=== PATIENT | male | born 1965 | race Caucasian/White ===

== ENCOUNTER → 2019-12-28 | Outpatient (CLI) | payer BC ==
--- NOTE | 2019-12-28 09:51 | US ---
EXAMINATION TYPE: US renal artery duplex complet DATE OF EXAM: 12/28/2019 COMPARISON: NONE CLINICAL HISTORY: N18.9 Chronic kidney disease. HTN controlled on meds MEASUREMENTS: RENAL SIZE: Rt Kidney: 12.1 x 5.7 x 5.6 cm Lt Kidney: 11.6 x 6.4 x 6.5 cm RESISTANCE INDEX Right: 0.58 Left: 0.59 RA/AO RATIO (< 3.5 ) Right: 1.6 Left: 1.2 RA VELOCITY ( < 180 cm/s) Right: 134 Left: 103 Proximal aorta obscured by bowel gas, otherwise is unremarkable. Two cysts right renal, largest measu re 2.2 x 2.3 x 2.1 cm. No ultrasound evidence for renal artery stenosis. Good upstroke on segmentals at renal hilum. Low resistive waveforms noted throughout. IMPRESSION: No sonographic evidence of renal arterial stenosis. 2 right renal cyst incidentally noted measuring up to 2.3 cm.
[2019-12-28 09:53] LABS: Appearance,Urine Clear (Clear); Bacteria,Urine Rare /hpf; Bilirubin,Urine Negative (Negative); Blood,Urine Small (Negative); Color,Urine Yellow; Glucose,Urine (UA) 4+ (Negative); Hyaline Casts,Urine 23 /lpf (0-2); Ketones,Urine Negative (Negative); Leukocyte Esterase,Urine Negative (Negative); Mucus,Urine Rare /hpf; Nitrite,Urine Negative (Negative); Protein,Urine 2+ (Negative); RBC,Urine 1 /hpf (0-5); Specific Gravity,Urine 1.017 (1.001-1.035); Squamous Epithelial Cell,Urine <1 /hpf (0-4); Urobilinogen,Urine <2.0 mg/dL (<2.0); WBC,Urine <1 /hpf (0-5)
[2019-12-28 09:55] LABS: Albumin 3.4 g/dL (3.5-5.0); Magnesium 2.3 mg/dL (1.6-2.3); Potassium 4.2 mmol/L (3.5-5.1); Total Bilirubin 0.4 mg/dL (0.2-1.3); Total Protein 6.2 g/dL (6.3-8.2); Uric Acid 7.3 mg/dL (3.5-8.5)
[2019-12-28 09:56] LABS: Basophils # (A) 0.1 k/uL (0-0.2); Basophils % (A) 1 %; Eosinophils # (A) 0.9 k/uL (0-0.7); Eosinophils % (A) 14 %; HGB 14.1 gm/dL (13.0-17.5); Lymphocytes % (A) 31 %; MCH 31.8 pg (25.0-35.0); MCHC 32.7 g/dL (31.0-37.0); MCV 97.2 fL (80.0-100.0); Mean Platelet Volume 7.5; Monocytes # (A) 0.3 k/uL (0-1.0); Monocytes % (A) 4 %; Neutrophils # (A) 3.2 k/uL (1.3-7.7); Neutrophils % (A) 49 %; Platelet Count 233 k/uL (150-450); RBC 4.43 m/uL (4.30-5.90); RDW 12.9 % (11.5-15.5); WBC 6.6 k/uL (3.8-10.6)
[2019-12-28 10:11] LABS: T4, Free (Free Thyroxine) 1.17 ng/dL (0.78-2.19)
== END | disposition home or self-care (01) ==
LOC: RADUSWWP 08:26
PROVIDERS: ATTEND Family Medicine
DX: N28.1 Cyst of kidney, acquired (principal); E55.9 Vitamin D deficiency, unspecified; I12.0 Hypertensive chronic kidney disease with stage 5 chronic kidney disease or end stage renal disease; N18.9 Chronic kidney disease, unspecified
CPT/HCPCS: 36415; 80053; 81001; 82306; 83735; 83970; 84100; 84439; 84443; 84550; 85025; 93975

== ENCOUNTER 2020-11-02 18:38 | Inpatient (IN) | payer BC ==
[2020-11-02 18:47] LABS: Glucose,Whole Blood 530 mg/dL (75-99)
[2020-11-02] MEDS ORDERED: SODIUM CHLORIDE 0.9% 2,000 ML IV STA (19:12)
--- NOTE | 2020-11-02 19:22 | ED ---
General Adult HPI - General Chief complaint: Recheck/Abnormal Lab/Rx Stated complaint: Hyperglycemia Time Seen by Provider: 11/02/20 18:52 Source: EMS Mode of arrival: EMS Limitations: no limitations - History of Present Illness Initial comments: Dictation was produced using [employer] dictation software. please excuse any grammatical, word or spelling errors. This patient was cared for during a federal and state declared state of emergency secondary to Covid 19 Chief Complaint: 54-year-old male presents emergency department for hyperg lycemia concerns of DKA History of Present Illness: 54-year-old male he is insulin-dependent diabetic. Patient states he has history of DKA in the past. Patient states he's been feeling nauseated and has not been taking his medications like he is supposed to. When checking his sugars have found to be significantly elevated. EMS was called and they initially did a blood glucose is found to be over 600. Patient denies abdominal pain. No dysuria. No cough shortness of breath. The ROS documented in this emergency department record has been reviewed and confirmed by me. Those systems with pertinent positive or negative responses have been documented in the HPI. All other systems are other negative and/or noncontributory. PHYSICAL EXAM: General Impression: Alert and oriented x3, not in acute distress, smells of acetone HEENT: Normocephalic atraumatic, extra-ocular movements intact, pupils equal and reactive to light bilaterally, dry mucous membranes Cardiovascular: Heart regular rate and rhythm Chest: Able to complete full sentences, no retractions, no tachypnea Abdomen: abdomen soft, non-tender, non-distended, no organomegaly Musculoskeletal: Pulses present and equal in all extremities, no peripheral edema Motor: no focal deficits noted Neurological: CN II-XII grossly intact, no focal motor or sensory deficits noted Skin: Intact with no visualized rashes Psych: Normal affect and mood ED course: 54 y Old male presents with hyperglycemia. Clinical presentation concerning for diabetic ketoacidosis. Vital signs upon arrival are within acceptable limits. Patient smells of acetone. Laboratory evaluation obtained. Leukocytosis 15.2 likely secondary to stress. Venous blood gas shows pH of 7.26 with a pCO2 of 26 and a bicarb of 12. Metabolic panel shows bicarb of 8. Elevated renal markers with a creatinine of 2.97 BUN 55. Glucose 585. Lactic acidosis 2.5. Patient started on insulin drip protocol. Case discussed Dr. Argueta who is taking calls for Dr. Aguilar. Case is also discussed with panel laminator Dr. almaguer who is agreeable for ICU admission. EKG interpretation: Ventricular rate 87, normal sinus rhythm,. Interval 150, QRS 100, QTC 529. No FL prolongation, QT is prolonged, no ST or T-wave changes noted. - Related Data Home Medications Medication Instructions Recorded Confirmed Amlodipine/Valsartan/Hcthiazid 1 tab PO DAILY 11/02/20 11/02/20 [Amlodipine/Valsartan/Hcthiazid 10-320-25 MG] Atorvastatin Calcium [Lipitor] 10 mg PO DAILY 11/02/20 11/02/20 Insulin Aspart (For Pump) [NovoLOG 0.01 unit SQ-PUMP CONTINUOUS MDD 11/02/20 11/02/20 (For Pump)] 100 UNITS Varenicline [Chantix Continuing 1 mg PO BID 11/02/20 11/02/20 Pack] tadalafiL [Tadalafil] 20 mg PO DAILY PRN 11/02/20 11/02/20 Allergies Allergy/AdvReac Type Severity Reaction Status Date / Time No Known Allergies Allergy Verified 11/02/20 19:46 Review of Systems ROS Statement: Those systems with pertinent positive or pertinent negative responses have been documented in the HPI. ROS Other: All systems not noted in ROS Statement are negative. Past Medical History Past Medical History: Diabetes Mellitus, Hypertension History of Any Multi-Drug Resistant Organisms: None Reported Past Surgical History: No Surgical Hx Reported Past Psychological History: No Psychological Hx Reported Smoking Status: Former smoker Past Alcohol Use History: Occasional Past Drug Use History: Marijuana General Exam Limitations: no limitations Course Vital Signs 11/02/20 18:40 Temperature 97.5 F L Pulse Rate 89 Respiratory 18 Rate Blood Pressure 181/75 O2 Sat by Pulse 100 Oximetry Medical Decision Making - Lab Data Result diagrams: 11/02/20 19:36 11/02/20 19:36 Lab Results 11/02/20 11/02/20 11/02/20 Range/Units 18:45 19:36 19:36 WBC 15.2 H (3.8-10.6) k/uL RBC 4.00 L (4.30-5.90) m/uL Hgb 12.7 L (13.0-17.5) gm/dL Hct 40.5 (39.0-53.0) % MCV 101.1 H (80.0-100.0) fL MCH 31.8 (25.0-35.0) pg MCHC 31.5 (31.0-37.0) g/dL RDW 14.1 (11.5-15.5) % Plt Count 295 (150-450) k/uL MPV 7.6 Neutrophils % 93 % Lymphocytes % 4 % Monocytes % 2 % Eosinophils % 0 % Basophils % 0 % Neutrophils # 14.2 H (1.3-7.7) k/uL Lymphocytes # 0.6 L (1.0-4.8) k/uL Monocytes # 0.3 (0-1.0) k/uL Eosinophils # 0.0 (0-0.7) k/uL Basophils # 0.0 (0-0.2) k/uL Macrocytosis Slight VBG pH (7.31-7.41) VBG pCO2 (37-51) mmHg VBG HCO3 (24-28) mmol/L Sodium 133 L (137-145) mmol/L Potassium 4.3 (3.5-5.1) mmol/L Chloride 92 L (98-107) mmol/L Carbon Dioxide 8 L* (22-30) mmol/L Anion Gap 33 mmol/L BUN 55 H (9-20) mg/dL Creatinine 2.97 H (0.66-1.25) mg/dL Est GFR (CKD-EPI)AfAm 27 (>60 ml/min/1.73 sqM) Est GFR (CKD-EPI)NonAf 23 (>60 ml/min/1.73 sqM) Glucose 585 H* (74-99) mg/dL POC Glucose (mg/dL) 530 H (75-99) mg/dL POC Glu [employer]otechn[employer] Laboratory Technician ID David Olivier Lactic Ac Sepsis Rflx Plasma Lactic Acid Howard (0.7-2.0) mmol/L Calcium 8.9 (8.4-10.2) mg/dL Magnesium 2.3 (1.6-2.3) mg/dL Total Bilirubin 0.4 (0.2-1.3) mg/dL AST 29 (17-59) U/L ALT 26 (4-49) U/L Alkaline Phosphatase 145 H (38-126) U/L Total Protein 5.7 L (6.3-8.2) g/dL Albumin 3.3 L (3.5-5.0) g/dL Lipase 62 (23-300) U/L 11/02/20 11/02/20 11/02/20 Range/Units 19:36 19:36 20:25 WBC (3.8-10.6) k/uL RBC (4.30-5.90) m/uL Hgb (13.0-17.5) gm/dL Hct (39.0-53.0) % MCV (80.0-100.0) fL MCH (25.0-35.0) pg MCHC (31.0-37.0) g/dL RDW (11.5-15.5) % Plt Count (150-450) k/uL MPV Neutrophils % % Lymphocytes % % Monocytes % % Eosinophils % % Basophils % % Neutrophils # (1.3-7.7) k/uL Lymphocytes # (1.0-4.8) k/uL Monocytes # (0-1.0) k/uL Eosinophils # (0-0.7) k/uL Basophils # (0-0.2) k/uL Macrocytosis VBG pH 7.26 L (7.31-7.41) VBG pCO2 26 L (37-51) mmHg VBG HCO3 12 L (24-28) mmol/L Sodium (137-145) mmol/L Potassium (3.5-5.1) mmol/L Chloride (98-107) mmol/L Carbon Dioxide (22-30) mmol/L Anion Gap mmol/L BUN (9-20) mg/dL Creatinine (0.66-1.25) mg/dL Est GFR (CKD-EPI)AfAm (>60 ml/min/1.73 sqM) Est GFR (CKD-EPI)NonAf (>60 ml/min/1.73 sqM) Glucose (74-99) mg/dL POC Glucose (mg/dL) (75-99) mg/dL POC Glu Geotechnical Laboratory Technician ID Lactic Ac Sepsis Rflx Y Plasma Lactic Acid Howard 2.5 H* (0.7-2.0) mmol/L Calcium (8.4-10.2) mg/dL Magnesium (1.6-2.3) mg/dL Total Bilirubin (0.2-1.3) mg/dL AST (17-59) U/L ALT (4-49) U/L Alkaline Phosphatase (38-126) U/L Total Protein (6.3-8.2) g/dL Albumin (3.5-5.0) g/dL Lipase (23-300) U/L Critical Care Time Critical Care Time: Yes Total Critical Care Time: 33 Disposition Clinical Impression: DKA (diabetic ketoacidoses) Disposition: ADMITTED IP TO THIS [facility] Condition: Critical Referrals: Codey Mishra MD [Primary Care Provider] - 1-2 days Decision Time: 22:38
[2020-11-02 19:46] LABS: Basophils % (A) 0 %; Eosinophils % (A) 0 %; HCT 40.5 % (39.0-53.0); HGB 12.7 gm/dL (13.0-17.5); Lymphocytes # (A) 0.6 k/uL (1.0-4.8); Lymphocytes % (A) 4 %; MCH 31.8 pg (25.0-35.0); MCHC 31.5 g/dL (31.0-37.0); MCV 101.1 fL (80.0-100.0); Macrocytosis Slight; Mean Platelet Volume 7.6; Monocytes # (A) 0.3 k/uL (0-1.0); Monocytes % (A) 2 %; Neutrophils # (A) 14.2 k/uL (1.3-7.7); Neutrophils % (A) 93 %; Platelet Count 295 k/uL (150-450); RDW 14.1 % (11.5-15.5); WBC 15.2 k/uL (3.8-10.6)
[2020-11-02 19:47] LABS: VBG PH 7.26 (7.31-7.41)
[2020-11-02 19:56] LABS: Albumin 3.3 g/dL (3.5-5.0); Calcium 8.9 mg/dL (8.4-10.2); Magnesium 2.3 mg/dL (1.6-2.3); Potassium 4.3 mmol/L (3.5-5.1); Total Bilirubin 0.4 mg/dL (0.2-1.3); Total Protein 5.7 g/dL (6.3-8.2)
[2020-11-02] MEDS ORDERED: ONDANSETRON 4 MG/2 ML VIAL IVP STA (22:01)
[2020-11-02] MEDS ORDERED: INSULIN REGULAR BOLUS (FROM DRIP BAG) IV ONE (22:30)
[2020-11-02] MEDS ORDERED: Magnesium Replacement Protocol 1 EACH MISC MISCELLANE PRN (22:30)
[2020-11-02] MEDS ORDERED: Potassium Replacement Protocol 1 EACH MISC MISCELLANE PRN (22:30)
[2020-11-02] MEDS ORDERED: NALOXONE 0.4 MG/ML 1 ML VIAL IV PRN (22:35)
[2020-11-02] MEDS ORDERED: ACETAMINOPHEN TAB 325 MG TAB PO PRN (22:35)
[2020-11-02] MEDS: SODIUM CHLORIDE 0.9% 1,000 ML IV SCH (22:47)
[2020-11-02] MEDS: INSULIN REGULAR 100 UNIT in SODIUM CHLORIDE 0.9% 100 ML IV SCH (22:47)
[2020-11-02 22:55] LABS: Glucose,Whole Blood 541 mg/dL (75-99)
[2020-11-02 22:58] LABS: Appearance,Urine Clear (Clear); Bilirubin,Urine Negative (Negative); Blood,Urine Trace (Negative); Color,Urine Light Yellow; Glucose,Urine (UA) 4+ (Negative); Hyaline Casts,Urine 7 /lpf (0-2); Leukocyte Esterase,Urine Negative (Negative); Mucus,Urine Rare /hpf; Nitrite,Urine Negative (Negative); PH, Urine 5.5 (5.0-8.0); Protein,Urine 2+ (Negative); RBC,Urine <1 /hpf (0-5); Specific Gravity,Urine 1.015 (1.001-1.035); Squamous Epithelial Cell,Urine 1 /hpf (0-4); Urobilinogen,Urine <2.0 mg/dL (<2.0); WBC,Urine 1 /hpf (0-5)
[2020-11-02 23:18] LABS: Ketones,Urine 3+ (Negative)
[2020-11-03 00:03] LABS: Glucose,Whole Blood 504 mg/dL (75-99)
[2020-11-03] MEDS: ONDANSETRON 4 MG/2 ML VIAL IVP PRN ×2 (00:38→03:14)
[2020-11-03 00:55] LABS: Phosphorus 8.6 mg/dL (2.5-4.5); Potassium 3.5 mmol/L (3.5-5.1)
[2020-11-03 01:13] LABS: Glucose,Whole Blood 445 mg/dL (75-99)
[2020-11-03 02:06] LABS: Glucose,Whole Blood 408 mg/dL (75-99)
[2020-11-03] MEDS ORDERED: ENALAPRILAT 1.25 MG/ML 1 ML VIAL IVP STA ×2 (02:34→03:43)
[2020-11-03 03:03] LABS: Glucose,Whole Blood 357 mg/dL (75-99)
[2020-11-03] MEDS: SODIUM CHLORIDE 0.9% 1,000 ML IV SCH ×2 (03:47→16:17)
[2020-11-03 04:08] LABS: Glucose,Whole Blood 287 mg/dL (75-99)
[2020-11-03 04:13] LABS: Phosphorus 4.2 mg/dL (2.5-4.5); Potassium 3.3 mmol/L (3.5-5.1)
[2020-11-03 05:04] LABS: Glucose,Whole Blood 276 mg/dL (75-99)
[2020-11-03 06:19] LABS: Glucose,Whole Blood 207 mg/dL (75-99)
[2020-11-03 07:07] LABS: Glucose,Whole Blood 187 mg/dL (75-99)
[2020-11-03 08:14] LABS: Glucose,Whole Blood 109 mg/dL (75-99)
[2020-11-03] MEDS: DEXTROSE 5%-0.45% NACL 1,000 ML IV SCH ×3 (08:57→18:10)
[2020-11-03 09:16] LABS: Glucose,Whole Blood 106 mg/dL (75-99)
--- NOTE | 2020-11-03 10:04 | P.CNPUL ---
History of Present Illness Consult date: 11/03/20 Reason for consult: other Chief complaint: Nausea, vomiting, DKA History of present illness: 54-year-old white male patient with history of type 1 diabetes mellitus, on insulin pump being managed by Dr. Mishra, baseline HbA1c of 14, and remote history of 1 previous episode of diabetic ketoacidosis, ex-smoker, history of hypertension, who presented to the emergency department on 11/02/2020 with complaints of nausea, apparently patient has not been taking his medications like she is supposed to. His blood sugars were significantly elevated. She did have a couple episodes of emesis in the emergency department with what looks like coffee-ground material,. His blood sugar at the scene was found to be over 600, patient denied any abdominal pain, denied any fever, no cough, no shortness of breath, no diarrhea. Laboratory evaluation showed leukocytosis with white count of 15.2, venous blood gas showed pH of 7.26 with pCO2 of 26, and a bicarb of 12, metabolic panel shows a bicarb of 8, his renal markers were elevated with creatinine of 2.97 and BUN of 55, glucose was 585, lactic acid was 2.5, urinalysis showed 3+ ketones, 4+ glucose, 2+ protein, no definite sign of infection in the urine, lipase is low at 62, AST and ALT are within normal limits and alkaline phosphatase was 145, COVID test was negative. EKG showed normal sinus rhythm with incomplete right bundle branch block, with evidence of septal infarct of undetermined age. Patient has been started on insulin infusion per DKA protocol, he received 2 L in IV fluid boluses, currently his insulin is running at 5.5 units per hour, she is currently on 0.9 normal scene at 200 ML per hour, his last blood sugar was 190, he is awake and alert, resting comfortably on the gurney in the emergency department, he states the nausea and vomiting have improved, although still feels slightly nauseous, no abdominal discomfort, not tachycardic, normal pulse ox is 96%, blood pressure is elevated with a pressure of 183/87, sinus mechanism, rate is 78, and patient is afebrile currently. Remains nothing by mouth, his last BMP at 3:00 in the morning showed improving metabolic acidosis with a CO2 up to 16, chloride is 100, potassium 3.3, improving renal profile with BUN of 62 and creatinine down to 2.92, repeat lactic acid came back slightly improved at 2.4. Review of Systems All systems: negative Constitutional: Reports malaise, Denies chills, Denies fever Eyes: denies blurred vision, denies pain Ears, nose, mouth and throat: Denies headache, Denies sore throat Cardiovascular: Denies chest pain, Denies shortness of breath Respiratory: Denies cough Gastrointestinal: Reports nausea, Reports vomiting, Denies abdominal pain, Denies diarrhea Musculoskeletal: Denies myalgias Integumentary: Denies pruritus, Denies rash Neurological: Denies numbness, Denies weakness Psychiatric: Denies anxiety, Denies depression Endocrine: Denies fatigue, Denies weight change Past Medical History Past Medical History: Diabetes Mellitus, Hypertension History of Any Multi-Drug Resistant Organisms: None Reported Past Surgical History: No Surgical Hx Reported Past Psychological History: No Psychological Hx Reported Smoking Status: Former smoker Past Alcohol Use History: Occasional Past Drug Use History: Marijuana Medications and Allergies Home Medications Medication Instructions Recorded Confirmed Type Amlodipine/Valsartan/Hcthiazid 1 tab PO DAILY 11/02/20 11/02/20 History [Amlodipine/Valsartan/Hcthiazid 10-320-25 MG] Atorvastatin Calcium [Lipitor] 10 mg PO DAILY 11/02/20 11/02/20 History Insulin Aspart (For Pump) [NovoLOG 0.01 unit SQ-PUMP CONTINUOUS MDD 11/02/20 11/02/20 History (For Pump)] 100 UNITS Varenicline [Chantix Continuing 1 mg PO BID 11/02/20 11/02/20 History Pack] tadalafiL [Tadalafil] 20 mg PO DAILY PRN 11/02/20 11/02/20 History Allergies Allergy/AdvReac Type Severity Reaction Status Date / Time No Known Allergies Allergy Verified 11/02/20 19:46 Physical Exam Vitals: Vital Signs Temp Pulse Resp BP Pulse Ox 11/03/20 09:30 78 18 183/87 96 11/03/20 07:00 84 177/97 99 11/03/20 04:00 94 18 164/84 98 11/03/20 03:00 94 16 176/80 99 11/03/20 02:00 93 16 194/93 98 11/03/20 01:14 178/85 11/03/20 00:42 96 18 199/92 100 11/02/20 22:54 90 18 148/71 99 11/02/20 18:40 97.5 F L 89 18 181/75 100 Intake and Output 11/02/20 11/03/20 11/03/20 22:59 06:59 14:59 Intake Total 58.746 4.278 Balance 58.746 4.278 Intake: Intake, IV Titration 58.746 4.278 Amount Insulin Regular 100 unit 58.746 4.278 In Sodium Chloride 0.9% 100 ml @ 0.1 UNITS/KG/HR 9.163 mls/hr IV .Q11H2M [id number] Rx#:[id number] Other: Weight 90.718 kg GENERAL EXAM: Alert, 54-year-old white male, resting comfortably on a gurney in the emergency department room air pulse ox of 96% comfortable in no apparent distress. HEAD: Normocephalic/atraumatic. EYES: Normal reaction of pupils, equal size. Conjunctiva pink, sclera white. NOSE: Clear with pink turbinates. THROAT: No erythema or exudates. NECK: No masses, no JVD, no thyroid enlargement, no adenopathy. CHEST: No chest wall deformity. Symmetrical expansion. LUNGS: Equal air entry with no crackles, wheeze, rhonchi or dullness. CVS: Regular rate and rhythm, normal S1 and S2, no gallops, no murmurs, no rubs ABDOMEN: Soft, nontender. No hepatosplenomegaly, normal bowel sounds, no guarding or rigidity. EXTREMITIES: No clubbing, no edema, no cyanosis, 2+ pulses and upper and lower extremities. MUSCULOSKELETAL: Muscle strength and tone normal. SPINE: No scoliosis or deformity SKIN: No rashes CENTRAL NERVOUS SYSTEM: Alert and oriented -3. No focal deficits, tone is normal in all 4 extremities. PSYCHIATRIC: Alert and oriented -3. Appropriate affect. Intact judgment and insight. Results - Laboratory Findings CBC and BMP: 11/02/20 19:36 11/03/20 03:40 Abnormal lab findings: Abnormal Labs 11/02/20 11/02/20 11/02/20 18:45 19:36 19:36 WBC 15.2 H RBC 4.00 L Hgb 12.7 L MCV 101.1 H Neutrophils # 14.2 H Lymphocytes # 0.6 L VBG pH VBG pCO2 VBG HCO3 Sodium 133 L Potassium Chloride 92 L Carbon Dioxide 8 L* BUN 55 H Creatinine 2.97 H Glucose 585 H* POC Glucose (mg/dL) 530 H Plasma Lactic Acid Howard Phosphorus Alkaline Phosphatase 145 H Total Protein 5.7 L Albumin 3.3 L Urine Protein Urine Glucose (UA) Urine Ketones Urine Blood Hyaline Casts Urine Mucus 11/02/20 11/02/20 11/02/20 19:36 19:36 22:23 WBC RBC Hgb MCV Neutrophils # Lymphocytes # VBG pH 7.26 L VBG pCO2 26 L VBG HCO3 12 L Sodium Potassium Chloride Carbon Dioxide BUN Creatinine Glucose POC Glucose (mg/dL) Plasma Lactic Acid Howard 2.5 H* Phosphorus Alkaline Phosphatase Total Protein Albumin Urine Protein 2+ H Urine Glucose (UA) 4+ H Urine Ketones 3+ H Urine Blood Trace H Hyaline Casts 7 H Urine Mucus Rare H 11/02/20 11/03/20 11/03/20 22:53 00:01 00:06 WBC RBC Hgb MCV Neutrophils # Lymphocytes # VBG pH VBG pCO2 VBG HCO3 Sodium Potassium Chloride Carbon Dioxide BUN Creatinine Glucose POC Glucose (mg/dL) 541 H 504 H Plasma Lactic Acid Howard 2.5 H* Phosphorus Alkaline Phosphatase Total Protein Albumin Urine Protein Urine Glucose (UA) Urine Ketones Urine Blood Hyaline Casts Urine Mucus 11/03/20 11/03/20 11/03/20 00:06 01:12 02:04 WBC RBC Hgb MCV Neutrophils # Lymphocytes # VBG pH VBG pCO2 VBG HCO3 Sodium Potassium Chloride 96 L Carbon Dioxide 7 L* BUN 58 H Creatinine 3.15 H Glucose 537 H* POC Glucose (mg/dL) 445 H 408 H Plasma Lactic Acid Howard Phosphorus 8.6 H Alkaline Phosphatase Total Protein Albumin Urine Protein Urine Glucose (UA) Urine Ketones Urine Blood Hyaline Casts Urine Mucus 11/03/20 11/03/20 11/03/20 03:02 03:40 03:40 WBC RBC Hgb MCV Neutrophils # Lymphocytes # VBG pH VBG pCO2 VBG HCO3 Sodium Potassium 3.3 L Chloride Carbon Dioxide 16 L BUN 62 H Creatinine 2.92 H Glucose 333 H POC Glucose (mg/dL) 357 H Plasma Lactic Acid Howard 2.4 H* Phosphorus Alkaline Phosphatase Total Protein Albumin Urine Protein Urine Glucose (UA) Urine Ketones Urine Blood Hyaline Casts Urine Mucus 11/03/20 11/03/20 11/03/20 04:06 05:02 06:17 WBC RBC Hgb MCV Neutrophils # Lymphocytes # VBG pH VBG pCO2 VBG HCO3 Sodium Potassium Chloride Carbon Dioxide BUN Creatinine Glucose POC Glucose (mg/dL) 287 H 276 H 207 H Plasma Lactic Acid Howard Phosphorus Alkaline Phosphatase Total Protein Albumin Urine Protein Urine Glucose (UA) Urine Ketones Urine Blood Hyaline Casts Urine Mucus 11/03/20 11/03/20 11/03/20 07:06 08:12 09:14 WBC RBC Hgb MCV Neutrophils # Lymphocytes # VBG pH VBG pCO2 VBG HCO3 Sodium Potassium Chloride Carbon Dioxide BUN Creatinine Glucose POC Glucose (mg/dL) 187 H 109 H 106 H Plasma Lactic Acid Howard Phosphorus Alkaline Phosphatase Total Protein Albumin Urine Protein Urine Glucose (UA) Urine Ketones Urine Blood Hyaline Casts Urine Mucus - Diagnostic Findings Additional studies: EKG reviewed Assessment and Plan Plan: Assessment: #1. Acute diabetic ketoacidosis #2. Severe metabolic doses related to the above, and lactic acidosis, doubt sepsis #3. Leukocytosis likely reactive #4. Coffee-ground emesis, monitor hemoglobin, possibly related to gastritis #5. Hyponatremia likely hypovolemic improved with IV hydration #6. Poor medical compliance #7. Poorly controlled diabetes mellitus type 1, and patient states his baseline HbA1c is 14 #8. Hypertension #9. Remote history of an episode of diabetic ketoacidosis #10. Former smoker, and occasional marijuana user Plan: Awaiting repeat electrolytes and renal profile, switch the IV fluids to D5 half- normal saline at a rate of 150 ML per hour, continue insulin infusion, patient is feeling better, less nauseous, we will continue with DKA insulin infusion, with nausea subsides may consider feeding the patient and starting on clear liquid diet. if the anion gap has closed and patient remains clinically stable we'll consider downgraded the patient to medical surgical floor without remote telemetry. Continue to follow I performed a history & physical examination of the patient and discussed their management with my nurse practitioner, Marsha Matthews. I reviewed the nurse practitioner's note and agree with the documented findings and plan of care. Lung sounds are positive for clear breath sounds The findings and the impression was discussed with the patient. I attest to the documentation by the nurse practitioner. Time with Patient: Greater than 30
[2020-11-03] MEDS ORDERED: ENALAPRILAT 1.25 MG/ML 1 ML VIAL IVP PRN (10:05)
[2020-11-03 10:08] LABS: Glucose,Whole Blood 110 mg/dL (75-99)
[2020-11-03] MEDS ORDERED: POTASSIUM CHLORIDE ER 20 MEQ TAB.ER PO STA (10:14)
[2020-11-03] MEDS ORDERED: PANTOPRAZOLE 40 MG/10 ML VIAL IVP SCH (10:15)
--- NOTE | 2020-11-03 10:32 | XR ---
EXAMINATION TYPE: XR chest 1V portable DATE OF EXAM: 11/03/2020 COMPARISON: 02/05/2012 HISTORY: Shortness of breath TECHNIQUE: Single frontal view of the chest is obtained. FINDINGS: Heart is enlarged and there is hyperinflation. No interstitial edema or pneumothorax. No p leural effusion is atherosclerotic change aorta. IMPRESSION: COPD and cardiomegaly.
[2020-11-03 11:06] LABS: Basophils % (A) 0 %; Eosinophils % (A) 0 %; HCT 32.2 % (39.0-53.0); HGB 11.1 gm/dL (13.0-17.5); Lymphocytes # (A) 1.3 k/uL (1.0-4.8); Lymphocytes % (A) 9 %; MCHC 34.4 g/dL (31.0-37.0); Mean Platelet Volume 7.6; Monocytes # (A) 1.1 k/uL (0-1.0); Monocytes % (A) 7 %; Neutrophils # (A) 12.3 k/uL (1.3-7.7); Neutrophils % (A) 83 %; Platelet Count 300 k/uL (150-450); RBC 3.47 m/uL (4.30-5.90); RDW 13.3 % (11.5-15.5); WBC 14.8 k/uL (3.8-10.6)
[2020-11-03 11:17] LABS: Glucose,Whole Blood 107 mg/dL (75-99)
[2020-11-03] MEDS: INSULIN REGULAR 100 UNIT in SODIUM CHLORIDE 0.9% 100 ML IV SCH (11:22)
[2020-11-03 11:35] LABS: MCV 92.9 fL (80.0-100.0)
[2020-11-03 12:25] LABS: Glucose,Whole Blood 125 mg/dL (75-99)
[2020-11-03 13:33] LABS: Glucose,Whole Blood 151 mg/dL (75-99)
[2020-11-03 14:25] LABS: Glucose,Whole Blood 162 mg/dL (75-99)
[2020-11-03] MEDS ORDERED: amLODIPine 5 MG TAB PO STA (14:29)
[2020-11-03 14:34] VITALS: BMI 25.7
[2020-11-03 16:24] LABS: Glucose,Whole Blood 241 mg/dL (75-99)
[2020-11-03] MEDS: ENOXAPARIN 40 MG/0.4 ML SYRINGE SQ SCH (17:04)
[2020-11-03 17:24] LABS: Glucose,Whole Blood 273 mg/dL (75-99)
[2020-11-03] MEDS ORDERED: INSPUCOR MISCELLANE PRN (18:04)
[2020-11-03] MEDS ORDERED: INSULIN PUMP BASAL RATES 1 EACH MISC MISCELLANE PRN (18:04)
[2020-11-03] MEDS ORDERED: INSULIN ASPART (NovoLOG) 100 UNIT/ML VIAL SQ PRN (18:04)
--- NOTE | 2020-11-03 18:36 | P.HPIM ---
History of Present Illness H&P Date: 11/03/20 Chief Complaint: Nausea vomiting History of presenting complaint: This is a pleasant 54-year-old patient of Dr. lawler from [place]. Patient is a type II diabetic with insulin pump was added for years. He states his Accu-Cheks have not been well controlled recently. His diabetes is followed by his family doctor. On Friday evening he went to play golf. He had a what he thinks was a Coca-Cola drink. That evening. When he came on into bed woke up around 2 in the morning throwing up multiple times. He stayed at home. He could not find his insulin pump. He thinks it could be wrapped up and is closed that he had vomited into. He did try to take some insulin injections in the meantime. His appetite has not been good. EMS was called out for his Accu-Chek s to be over 600. There is no abdominal pain. No fever no chills. No cough or shortness of breath. Patient was in diabetic ketoacidosis put on insulin drip. When this morning feeling a bit better. Feeling slightly nauseated. Does want eat a little bit. 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 Smoked a pack a day for about 35 years stopped about 6 months ago. Rare marijuana Physical examination: VITAL SIGNS: 97.5, 89, 18, 181-75, 100% room air GENERAL: BMI 25.7, laying in bed, tired. EYES: Pupils equal. Conjunctiva normal. HEENT: External appearance of nose and ears normal, oral cavity dry mucous membranes. NECK: JVD not raised; masses not palpable. HEART: First and second heart sounds are normal; no edema. LUNGS: Respiratory rate normal; clear to auscultation. ABDOMEN: Soft, nontender, liver spleen not palpable, no masses palpable. PSYCH: Alert and oriented x3; mood and affect normal. NEUROLOGICAL: Cranial nerves grossly intact; no facial asymmetry, power and sensation grossly intact. LYMPHATICS: No lymph nodes palpable in the axilla and neck INVESTIGATIONS, reviewed in the clinical context: November 03: WBC 14.8 hemoglobin 11.1 platelets 300 potassium 3 bicarbonate 25 creatinine 2.47 Admission labs: EKG tracing personally reviewed by me-normal sinus rhythm, nonspecific changes Chest x-ray film personally reviewed by me-lung spears clear WBC 15.2 hemoglobin 12.7 platelets 7.6 potassium 4.3 bicarbonate BUN 55 creatinine 2.97 blood glucose 585 lactic acid 2.5 Assessment and plan: -Diabetic ketoacidosis, unclear white count was precipitated. Patient was put on a decub protocol including insulin drip and IV fluids -Diabetes mellitus type 2, chronically on insulin pump Uncontrolled with hyperglycemia, patient states he has not been very careful about the same -Essential hypertension uncontrolled, patient states his blood pressure has been running on the higher side. Added Catapres 0.1 mg twice a day. Follow blood pressure closely -Kidney failure, acute versus chronic. Patient acutely given IV fluids, will check renal ultrasound at this point is unclear. Patient got a chronic component. -DVT prophylaxis Subcu Lovenox Spoke at length to the patient. At the nurse. Patient's is being contacted to bring patient insulin pump. That can be placed this afternoon. Ultrasound has been ordered. We'll consult nephrology. Repeat labs in the morning. Given the complexity and severity of patient's condition expect the patient to be in the hospital at least for 2 overnights Past Medical History Past Medical History: Diabetes Mellitus, Hypertension History of Any Multi-Drug Resistant Organisms: None Reported Past Surgical History: No Surgical Hx Reported Past Psychological History: No Psychological Hx Reported Smoking Status: Former smoker Past Alcohol Use History: Occasional Past Drug Use History: Marijuana - Past Family History Mother Family Medical History: COPD Father Family Medical History: No Reported History Additional Family Medical History / Comment(s): Mother is healthy. Medications and Allergies Home Medications Medication Instructions Recorded Confirmed Type Amlodipine/Valsartan/Hcthiazid 1 tab PO DAILY 11/02/20 11/02/20 History [Amlodipine/Valsartan/Hcthiazid 10-320-25 MG] Atorvastatin Calcium [Lipitor] 10 mg PO DAILY 11/02/20 11/02/20 History Insulin Aspart (For Pump) [NovoLOG 0.01 unit SQ-PUMP CONTINUOUS MDD 11/02/20 11/02/20 History (For Pump)] 100 UNITS Varenicline [Chantix Continuing 1 mg PO BID 11/02/20 11/02/20 History Pack] tadalafiL [Tadalafil] 20 mg PO DAILY PRN 11/02/20 11/02/20 History Allergies Allergy/AdvReac Type Severity Reaction Status Date / Time No Known Allergies Allergy Verified 11/02/20 19:46 Physical Exam Vitals: Vital Signs Temp Pulse Resp BP Pulse Ox 11/03/20 09:30 78 18 183/87 96 11/03/20 07:00 84 177/97 99 11/03/20 04:00 94 18 164/84 98 11/03/20 03:00 94 16 176/80 99 11/03/20 02:00 93 16 194/93 98 11/03/20 01:14 178/85 11/03/20 00:42 96 18 199/92 100 11/02/20 22:54 90 18 148/71 99 11/02/20 18:40 97.5 F L 89 18 181/75 100 Intake and Output 11/02/20 11/03/20 11/03/20 22:59 06:59 14:59 Intake Total 58.746 6.603 Balance 58.746 6.603 Intake: Intake, IV Titration 58.746 6.603 Amount Insulin Regular 100 unit 58.746 6.603 In Sodium Chloride 0.9% 100 ml @ 0.1 UNITS/KG/HR 9.163 mls/hr IV .Q11H2M [facility] Rx#:[id number] Other: Weight 90.718 kg Results CBC & Chem 7: 11/03/20 09:22 11/03/20 09:22 Labs: Abnormal Lab Results - Last 24 Hours (Table) 11/02/20 11/02/20 11/02/20 Range/Units 18:45 19:36 19:36 WBC 15.2 H (3.8-10.6) k/uL RBC 4.00 L (4.30-5.90) m/uL Hgb 12.7 L (13.0-17.5) gm/dL MCV 101.1 H (80.0-100.0) fL Neutrophils # 14.2 H (1.3-7.7) k/uL Lymphocytes # 0.6 L (1.0-4.8) k/uL VBG pH (7.31-7.41) VBG pCO2 (37-51) mmHg VBG HCO3 (24-28) mmol/L Sodium 133 L (137-145) mmol/L Potassium (3.5-5.1) mmol/L Chloride 92 L (98-107) mmol/L Carbon Dioxide 8 L* (22-30) mmol/L BUN 55 H (9-20) mg/dL Creatinine 2.97 H (0.66-1.25) mg/dL Glucose 585 H* (74-99) mg/dL POC Glucose (mg/dL) 530 H (75-99) mg/dL Plasma Lactic Acid Howard (0.7-2.0) mmol/L Calcium (8.4-10.2) mg/dL Phosphorus (2.5-4.5) mg/dL Alkaline Phosphatase 145 H (38-126) U/L Total Protein 5.7 L (6.3-8.2) g/dL Albumin 3.3 L (3.5-5.0) g/dL Urine Protein (Negative) Urine Glucose (UA) (Negative) Urine Ketones (Negative) Urine Blood (Negative) Hyaline Casts (0-2) /lpf Urine Mucus (None) /hpf 11/02/20 11/02/20 11/02/20 Range/Units 19:36 19:36 22:23 WBC (3.8-10.6) k/uL RBC (4.30-5.90) m/uL Hgb (13.0-17.5) gm/dL MCV (80.0-100.0) fL Neutrophils # (1.3-7.7) k/uL Lymphocytes # (1.0-4.8) k/uL VBG pH 7.26 L (7.31-7.41) VBG pCO2 26 L (37-51) mmHg VBG HCO3 12 L (24-28) mmol/L Sodium (137-145) mmol/L Potassium (3.5-5.1) mmol/L Chloride (98-107) mmol/L Carbon Dioxide (22-30) mmol/L BUN (9-20) mg/dL Creatinine (0.66-1.25) mg/dL Glucose (74-99) mg/dL POC Glucose (mg/dL) (75-99) mg/dL Plasma Lactic Acid Howard 2.5 H* (0.7-2.0) mmol/L Calcium (8.4-10.2) mg/dL Phosphorus (2.5-4.5) mg/dL Alkaline Phosphatase (38-126) U/L Total Protein (6.3-8.2) g/dL Albumin (3.5-5.0) g/dL Urine Protein 2+ H (Negative) Urine Glucose (UA) 4+ H (Negative) Urine Ketones 3+ H (Negative) Urine Blood Trace H (Negative) Hyaline Casts 7 H (0-2) /lpf Urine Mucus Rare H (None) /hpf 11/02/20 11/03/20 11/03/20 Range/Units 22:53 00:01 00:06 WBC (3.8-10.6) k/uL RBC (4.30-5.90) m/uL Hgb (13.0-17.5) gm/dL MCV (80.0-100.0) fL Neutrophils # (1.3-7.7) k/uL Lymphocytes # (1.0-4.8) k/uL VBG pH (7.31-7.41) VBG pCO2 (37-51) mmHg VBG HCO3 (24-28) mmol/L Sodium (137-145) mmol/L Potassium (3.5-5.1) mmol/L Chloride (98-107) mmol/L Carbon Dioxide (22-30) mmol/L BUN (9-20) mg/dL Creatinine (0.66-1.25) mg/dL Glucose (74-99) mg/dL POC Glucose (mg/dL) 541 H 504 H (75-99) mg/dL Plasma Lactic Acid Howard 2.5 H* (0.7-2.0) mmol/L Calcium (8.4-10.2) mg/dL Phosphorus (2.5-4.5) mg/dL Alkaline Phosphatase (38-126) U/L Total Protein (6.3-8.2) g/dL Albumin (3.5-5.0) g/dL Urine Protein (Negative) Urine Glucose (UA) (Negative) Urine Ketones (Negative) Urine Blood (Negative) Hyaline Casts (0-2) /lpf Urine Mucus (None) /hpf 11/03/20 11/03/20 11/03/20 Range/Units 00:06 01:12 02:04 WBC (3.8-10.6) k/uL RBC (4.30-5.90) m/uL Hgb (13.0-17.5) gm/dL MCV (80.0-100.0) fL Neutrophils # (1.3-7.7) k/uL Lymphocytes # (1.0-4.8) k/uL VBG pH (7.31-7.41) VBG pCO2 (37-51) mmHg VBG HCO3 (24-28) mmol/L Sodium (137-145) mmol/L Potassium (3.5-5.1) mmol/L Chloride 96 L (98-107) mmol/L Carbon Dioxide 7 L* (22-30) mmol/L BUN 58 H (9-20) mg/dL Creatinine 3.15 H (0.66-1.25) mg/dL Glucose 537 H* (74-99) mg/dL POC Glucose (mg/dL) 445 H 408 H (75-99) mg/dL Plasma Lactic Acid Howard (0.7-2.0) mmol/L Calcium (8.4-10.2) mg/dL Phosphorus 8.6 H (2.5-4.5) mg/dL Alkaline Phosphatase (38-126) U/L Total Protein (6.3-8.2) g/dL Albumin (3.5-5.0) g/dL Urine Protein (Negative) Urine Glucose (UA) (Negative) Urine Ketones (Negative) Urine Blood (Negative) Hyaline Casts (0-2) /lpf Urine Mucus (None) /hpf 11/03/20 11/03/20 11/03/20 Range/Units 03:02 03:40 03:40 WBC (3.8-10.6) k/uL RBC (4.30-5.90) m/uL Hgb (13.0-17.5) gm/dL MCV (80.0-100.0) fL Neutrophils # (1.3-7.7) k/uL Lymphocytes # (1.0-4.8) k/uL VBG pH (7.31-7.41) VBG pCO2 (37-51) mmHg VBG HCO3 (24-28) mmol/L Sodium (137-145) mmol/L Potassium 3.3 L (3.5-5.1) mmol/L Chloride (98-107) mmol/L Carbon Dioxide 16 L (22-30) mmol/L BUN 62 H (9-20) mg/dL Creatinine 2.92 H (0.66-1.25) mg/dL Glucose 333 H (74-99) mg/dL POC Glucose (mg/dL) 357 H (75-99) mg/dL Plasma Lactic Acid Howard 2.4 H* (0.7-2.0) mmol/L Calcium (8.4-10.2) mg/dL Phosphorus (2.5-4.5) mg/dL Alkaline Phosphatase (38-126) U/L Total Protein (6.3-8.2) g/dL Albumin (3.5-5.0) g/dL Urine Protein (Negative) Urine Glucose (UA) (Negative) Urine Ketones (Negative) Urine Blood (Negative) Hyaline Casts (0-2) /lpf Urine Mucus (None) /hpf 11/03/20 11/03/20 11/03/20 Range/Units 04:06 05:02 06:17 WBC (3.8-10.6) k/uL RBC (4.30-5.90) m/uL Hgb (13.0-17.5) gm/dL MCV (80.0-100.0) fL Neutrophils # (1.3-7.7) k/uL Lymphocytes # (1.0-4.8) k/uL VBG pH (7.31-7.41) VBG pCO2 (37-51) mmHg VBG HCO3 (24-28) mmol/L Sodium (137-145) mmol/L Potassium (3.5-5.1) mmol/L Chloride (98-107) mmol/L Carbon Dioxide (22-30) mmol/L BUN (9-20) mg/dL Creatinine (0.66-1.25) mg/dL Glucose (74-99) mg/dL POC Glucose (mg/dL) 287 H 276 H 207 H (75-99) mg/dL Plasma Lactic Acid Howard (0.7-2.0) mmol/L Calcium (8.4-10.2) mg/dL Phosphorus (2.5-4.5) mg/dL Alkaline Phosphatase (38-126) U/L Total Protein (6.3-8.2) g/dL Albumin (3.5-5.0) g/dL Urine Protein (Negative) Urine Glucose (UA) (Negative) Urine Ketones (Negative) Urine Blood (Negative) Hyaline Casts (0-2) /lpf Urine Mucus (None) /hpf 11/03/20 11/03/20 11/03/20 Range/Units 07:06 08:12 09:14 WBC (3.8-10.6) k/uL RBC (4.30-5.90) m/uL Hgb (13.0-17.5) gm/dL MCV (80.0-100.0) fL Neutrophils # (1.3-7.7) k/uL Lymphocytes # (1.0-4.8) k/uL VBG pH (7.31-7.41) VBG pCO2 (37-51) mmHg VBG HCO3 (24-28) mmol/L Sodium (137-145) mmol/L Potassium (3.5-5.1) mmol/L Chloride (98-107) mmol/L Carbon Dioxide (22-30) mmol/L BUN (9-20) mg/dL Creatinine (0.66-1.25) mg/dL Glucose (74-99) mg/dL POC Glucose (mg/dL) 187 H 109 H 106 H (75-99) mg/dL Plasma Lactic Acid Howard (0.7-2.0) mmol/L Calcium (8.4-10.2) mg/dL Phosphorus (2.5-4.5) mg/dL Alkaline Phosphatase (38-126) U/L Total Protein (6.3-8.2) g/dL Albumin (3.5-5.0) g/dL Urine Protein (Negative) Urine Glucose (UA) (Negative) Urine Ketones (Negative) Urine Blood (Negative) Hyaline Casts (0-2) /lpf Urine Mucus (None) /hpf 11/03/20 11/03/20 Range/Units 09:22 10:06 WBC (3.8-10.6) k/uL RBC (4.30-5.90) m/uL Hgb (13.0-17.5) gm/dL MCV (80.0-100.0) fL Neutrophils # (1.3-7.7) k/uL Lymphocytes # (1.0-4.8) k/uL VBG pH (7.31-7.41) VBG pCO2 (37-51) mmHg VBG HCO3 (24-28) mmol/L Sodium (137-145) mmol/L Potassium 3.0 L (3.5-5.1) mmol/L Chloride (98-107) mmol/L Carbon Dioxide (22-30) mmol/L BUN 60 H (9-20) mg/dL Creatinine 2.47 H (0.66-1.25) mg/dL Glucose 107 H (74-99) mg/dL POC Glucose (mg/dL) 110 H (75-99) mg/dL Plasma Lactic Acid Howard (0.7-2.0) mmol/L Calcium 8.0 L (8.4-10.2) mg/dL Phosphorus (2.5-4.5) mg/dL Alkaline Phosphatase (38-126) U/L Total Protein (6.3-8.2) g/dL Albumin (3.5-5.0) g/dL Urine Protein (Negative) Urine Glucose (UA) (Negative) Urine Ketones (Negative) Urine Blood (Negative) Hyaline Casts (0-2) /lpf Urine Mucus (None) /hpf
[2020-11-03 18:39] LABS: Glucose,Whole Blood 285 mg/dL (75-99)
[2020-11-03] MEDS: LOSARTAN 50 MG TAB PO SCH (19:22)
[2020-11-03] MEDS: VARENICLINE 1 MG TAB PO SCH (19:23)
--- NOTE | 2020-11-03 19:36 | US ---
EXAMINATION TYPE: US kidneys/renal and bladder DATE OF EXAM: 11/03/2020 COMPARISON: US CLINICAL HISTORY: abnormal renal function. EXAM MEASUREMENTS: Right Kidney: 11.9 x 5.8 x 4.5 cm Left Kidney: 12.5 x 6.9 x 6.8 cm Right Kidney: two cysts see, one measures 2.1 x 1.7 x 2.2 cm, and the second measures 1.9 x 2.2 x 1.6 cm. Left Kidney: No hydronephrosis or masses seen Bladder: wnl Bilateral Jets seen: Yes IMPRESSION: No evidence of solid renal mass or obstruction. Normal urinary bladder.
[2020-11-03 20:54] LABS: Glucose,Whole Blood 239 mg/dL (75-99)
[2020-11-03] MEDS: FAMOTIDINE 20 MG TAB PO SCH (21:33)
[2020-11-03] MEDS: INSULIN PUMP MEAL BOLUS 1 UNIT MISC MISCELLANE SCH (21:56)
[2020-11-03] MEDS: cloNIDine HCL 0.1 MG TAB PO SCH (22:05)
[2020-11-04 06:37] LABS: Basophils % (A) 0 %; Eosinophils # (A) 0.1 k/uL (0-0.7); Eosinophils % (A) 1 %; HCT 31.2 % (39.0-53.0); HGB 10.9 gm/dL (13.0-17.5); Lymphocytes # (A) 1.8 k/uL (1.0-4.8); Lymphocytes % (A) 19 %; MCH 33.1 pg (25.0-35.0); MCHC 34.8 g/dL (31.0-37.0); MCV 95.2 fL (80.0-100.0); Mean Platelet Volume 7.2; Monocytes # (A) 0.6 k/uL (0-1.0); Monocytes % (A) 6 %; Neutrophils # (A) 7.3 k/uL (1.3-7.7); Neutrophils % (A) 73 %; Platelet Count 228 k/uL (150-450); RBC 3.28 m/uL (4.30-5.90); RDW 13.4 % (11.5-15.5); WBC 9.9 k/uL (3.8-10.6)
[2020-11-04 06:45] LABS: African American GFR (CKD) 48 (>60 ml/min/1.73 sqM); Anion Gap 3 mmol/L; Blood Urea Nitrogen 35 mg/dL (9-20); Calcium 8.1 mg/dL (8.4-10.2); Carbon Dioxide 29 mmol/L (22-30); Chloride 104 mmol/L (98-107); Glucose 140 mg/dL (74-99); Non-African American GFR(CKD) 41 (>60 ml/min/1.73 sqM); Potassium 3.7 mmol/L (3.5-5.1); Sodium 136 mmol/L (137-145)
[2020-11-04 07:04] LABS: Glucose,Whole Blood 135 mg/dL (75-99)
[2020-11-04] MEDS: INSULIN PUMP MEAL BOLUS 1 UNIT MISC MISCELLANE SCH ×4 (07:30→21:12)
[2020-11-04] MEDS: LOSARTAN 50 MG TAB PO SCH (08:19)
[2020-11-04] MEDS: FAMOTIDINE 20 MG TAB PO SCH ×2 (08:19→21:05)
[2020-11-04] MEDS: ATORVASTATIN 10 MG TAB PO SCH (08:19)
[2020-11-04] MEDS: cloNIDine HCL 0.1 MG TAB PO SCH (08:20)
[2020-11-04] MEDS: ENOXAPARIN 40 MG/0.4 ML SYRINGE SQ SCH (08:20)
[2020-11-04] MEDS: VARENICLINE 1 MG TAB PO SCH ×2 (08:21→21:04)
[2020-11-04] MEDS ORDERED: amLODIPine 5 MG TAB PO SCH (09:00)
[2020-11-04 11:42] LABS: Glucose,Whole Blood 171 mg/dL (75-99)
[2020-11-04] MEDS: cloNIDine HCL 0.2 MG TAB PO SCH ×2 (15:23→21:05)
[2020-11-04 17:25] LABS: Glucose,Whole Blood 201 mg/dL (75-99)
--- NOTE | 2020-11-04 18:09 | CONS ---
CONSULTATION REASON FOR CONSULT: Renal failure. HISTORY OF PRESENT ILLNESS: Patient is a 54-year-old male who was admitted to the hospital with complaints of weakness, vomiting, nausea. He was noted to be in DKA. The patient has been treated with insulin drip. His serum creatinine had peaked to 3.15. It is down to 1.83 now. He has had good urine output. Blood pressure has been elevated. Overall, he states he is feeling better. Review of previous labs show serum creatinine 1.4 in December of 2020. No significant urinary symptoms. Patient was maintained on SINA inhibitors prior to admission. He denied use of any nonsteroidal anti-inflammatory agents. PAST MEDICAL HISTORY: Significant for diabetes, hypertension, possible underlying chronic kidney disease. SOCIAL HISTORY: Positive for smoking, patient is a former smoker. History of marijuana use. MEDICATIONS: Medications prior to admission included amlodipine, valsartan, hydrochlorothiazide, Lipitor, insulin, tadalafil, Chantix. ALLERGIES: None. REVIEW OF SYSTEMS: As per HPI. Other systems negative. EXAMINATION: Patient is comfortable, awake. He is not in any acute distress. Alert and oriented x3. Blood pressure was elevated 181/87, heart rate 77 per minute, he is afebrile. Examination of the heart S1, S2. Examination of lungs, decreased breath sounds at bases. Abdomen is soft, nontender. Examination of lower extremities shows no evidence of edema. [employer] SUPER[employer]OR exam grossly intact. LAB: Show sodium of 136, potassium 3.7, BUN 35, creatinine 1.83, hemoglobin 10.9 g/dL. ASSESSMENT: 1. Acute kidney injury associated with diabetic ketoacidosis, prerenal component, currently improving. The patient remains on angiotensin receptor blockers in the form of Cozaar which we can continue as his blood pressure remains elevated. 2. Hypertension, currently uncontrolled, maintained on clonidine and Cozaar. We can resume calcium channel blockers as well that patient was taking at home. 3. Rule out chronic kidney disease. Previous creatinine noted at 1.4 in December of 2019. Need to rule out underlying diabetic kidney disease. The patient does have significant proteinuria which needs to be quantified. 4. Anemia, rule out iron deficiency. 5. Diabetic ketoacidosis, currently improved. The patient still remains on insulin drip. PLAN: Check protein creatinine ratio. Continue with angiotensin receptor blockers. Recommend to resume calcium channel blockers as blood pressure remains uncontrolled. Agree with ultrasound of the kidneys. Repeat labs in a.m. MMDELIAL / IJN: [id number] /
[2020-11-04 18:13] LABS: Creatinine,Urine Random 86.6 mg/dL
[2020-11-04 20:54] LABS: Glucose,Whole Blood 91 mg/dL (75-99)
[2020-11-04 21:25] VITALS: RESP 16
--- NOTE | 2020-11-04 23:08 | P.PN ---
Progress Note - Text Progress Note Date: 11/04/20 Chief Complaint: Nausea vomiting History of presenting complaint: This is a pleasant 54-year-old patient of Dr. lawler from [place]. Patient is a type II diabetic with insulin pump was added for years. He states his Accu-Cheks have not been well controlled recently. His diabetes is followed by his family doctor. On Friday evening he went to play golf. He had a what he thinks was a Coca-Cola drink. That evening. When he came on into bed woke up around 2 in the morning throwing up multiple times. He stayed at home. He could not find his insulin pump. He thinks it could be wrapped up and is closed that he had vomited into. He did try to take some insulin injections in the meantime. His appetite has not been good. EMS was called out for his Accu- Cheks to be over 600. There is no abdominal pain. No fever no chills. No cough or shortness of breath. Patient was in diabetic ketoacidosis put on insulin drip. When this morning feeling a bit better. Feeling slightly nauseated. Does want eat a little bit. Admitted with diabetic ketoacidosis. Also found to have accepted hypertension. Catapres added. Also acute on chronic kidney disease. Nephrology consulted. Today: Feeling better. Oral intake improved. Blood pressure still running high. Review of systems: Was done for constitutional, cardiovascular, GI, pulmonary. relevant finding as above Active Medications Acetaminophen (Acetaminophen Tab 325 Mg Tab) 650 mg PO Q4HR PRN PRN Reason: Fever and/or Mild Pain Atorvastatin Calcium (Atorvastatin 10 Mg Tab) 10 mg PO DAILY [facility] Last Admin: 11/04/20 08:19 Dose: 10 mg Documented by: Clonidine (Clonidine Hcl 0.2 Mg Tab) 0.2 mg PO TID [facility] Last Admin: 11/04/20 21:05 Dose: 0.2 mg Documented by: Enoxaparin Sodium (Enoxaparin 40 Mg/0.4 Ml Syringe) 40 mg SQ DAILY [facility] Last Admin: 11/04/20 08:20 Dose: 40 mg Documented by: Famotidine (Famotidine 20 Mg Tab) 20 mg PO BID [facility] Last Admin: 11/04/20 21:05 Dose: 20 mg Documented by: Insulin Aspart (Insulin Aspart (Novolog) 100 Unit/Ml Vial) 0 unit SQ DAILY PRN PRN Reason: Insulin Pump Replacement Losartan Potassium (Losartan 50 Mg Tab) 50 mg PO DAILY [facility] Last Admin: 11/04/20 08:19 Dose: 50 mg Documented by: Miscellaneous Information (Magnesium Replacement Protocol 1 Each Misc) 1 each MISCELLANE DAILY PRN; Protocol PRN Reason: Per Protocol Miscellaneous Information (Potassium Replacement Protocol 1 Each Misc) 1 each MISCELLANE DAILY PRN PRN Reason: Per Protocol Miscellaneous Information (Insulin Pump Basal Rates 1 Each Misc) 1 each MISCELLANE Q6HR PRN; Protocol PRN Reason: Blood Sugar - High Miscellaneous Information (Insulin Pump Meal Bolus 1 Unit Misc) 0 unit MISCELLANE ACHS [facility]; Protocol Last Admin: 11/04/20 21:12 Dose: Not Given Documented by: Miscellaneous Information (Insulin Pump Correction Bolus 1 Unit Misc) 0 unit MISCELLANE ACHS PRN; Protocol PRN Reason: Blood Sugar - High Naloxone HCl (Naloxone 0.4 Mg/Ml 1 Ml Vial) 0.2 mg IV Q2M PRN PRN Reason: Opioid Reversal Ondansetron HCl (Ondansetron 4 Mg/2 Ml Vial) 4 mg IVP Q6HR PRN PRN Reason: Nausea And Vomiting Last Admin: 11/03/20 03:14 Dose: 4 mg Documented by: Varenicline (Varenicline 1 Mg Tab) 1 mg PO BID [facility] Last Admin: 11/04/20 21:04 Dose: Not Given Documented by: Past medical history to include: Diabetes type 2 on insulin pump, hypertension 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 Smoked a pack a day for about 35 years stopped about 6 months ago. Rare marijuana Physical examination: VITAL SIGNS: 98.4, 65:, 18, 183 bradycardia 6, 97% room air GENERAL: BMI 25.7, sitting up in a bed, more comfortable EYES: Pupils equal. Conjunctiva normal. HEENT: External appearance of nose and ears normal, oral cavity dry mucous membranes. NECK: JVD not raised; masses not palpable. HEART: First and second heart sounds are normal; no edema. LUNGS: Respiratory rate normal; clear to auscultation. ABDOMEN: Soft, nontender, liver spleen not palpable, no masses palpable. PSYCH: Alert and oriented x3; mood and affect normal. INVESTIGATIONS, reviewed in the clinical context: November 04: WBC 9.9 hemoglobin 10.9 potassium 3.7 creatinine 1.83 November 03: WBC 14.8 hemoglobin 11.1 platelets 300 potassium 3 bicarbonate 25 creatinine 2.47 Admission labs: EKG tracing personally reviewed by me-normal sinus rhythm, nonspecific changes Chest x-ray film personally reviewed by me-lung spears clear WBC 15.2 hemoglobin 12.7 platelets 7.6 potassium 4.3 bicarbonate BUN 55 creatinine 2.97 blood glucose 585 lactic acid 2.5 Assessment and plan: -Diabetic ketoacidosis, improved Patient was put on a decub protocol including insulin drip and IV fluids -Diabetes mellitus type 2, chronically on insulin pump Uncontrolled with hyperglycemia, patient states he has not been very careful about the same -Essential hypertension -remains uncontrolled, Increase Catapres to 0.2 mg 3 times a day. 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 Repeat labs in the morning. Discussed with the patient.
[2020-11-05 06:01] LABS: African American GFR (CKD) 63 (>60 ml/min/1.73 sqM); Anion Gap 3 mmol/L; Blood Urea Nitrogen 22 mg/dL (9-20); Calcium 7.9 mg/dL (8.4-10.2); Carbon Dioxide 31 mmol/L (22-30); Chloride 99 mmol/L (98-107); Glucose 192 mg/dL (74-99); Non-African American GFR(CKD) 55 (>60 ml/min/1.73 sqM); Potassium 3.5 mmol/L (3.5-5.1); Sodium 133 mmol/L (137-145)
[2020-11-05 07:10] LABS: Glucose,Whole Blood 209 mg/dL (75-99)
[2020-11-05] MEDS: INSULIN PUMP MEAL BOLUS 1 UNIT MISC MISCELLANE SCH ×2 (08:01→12:42)
[2020-11-05] MEDS: cloNIDine HCL 0.2 MG TAB PO SCH (08:02)
[2020-11-05] MEDS: ENOXAPARIN 40 MG/0.4 ML SYRINGE SQ SCH (08:02)
[2020-11-05] MEDS: ATORVASTATIN 10 MG TAB PO SCH (08:03)
[2020-11-05] MEDS: LOSARTAN 50 MG TAB PO SCH (08:03)
[2020-11-05] MEDS: VARENICLINE 1 MG TAB PO SCH (08:03)
[2020-11-05] MEDS: FAMOTIDINE 20 MG TAB PO SCH (08:04)
[2020-11-05 11:35] LABS: Glucose,Whole Blood 212 mg/dL (75-99)
[2020-11-05 12:02] VITALS: BP 164/85; PULSE 57; TEMP 97.3
[2020-11-05] MEDS ORDERED: amLODIPine 5 MG TAB PO SCH (12:15)
--- NOTE | 2020-11-05 13:28 | PN ---
PROGRESS NOTE Patient is seen for followup for acute kidney injury. Renal function has improved with creatinine down to 1.4 from peak of 3.15 mg/dL. The patient is currently not on any IV fluids. He has been voiding well. He was admitted with diabetic ketoacidosis and is status post IV fluids. Ultrasound of the kidneys is unremarkable with no evidence of hydronephrosis. PHYSICAL EXAMINATION: On examination today, blood pressure 161/84, heart rate 54 per minute, he is afebrile. Examination shows patient is euvolemic with no evidence of edema bilateral lower extremities. Abdomen is soft, nontender. LAB: Show sodium 133, potassium 3.5, BUN 22, creatinine down to 1.4, calcium 7.9 mg/dL. ASSESSMENT: 1. Acute kidney injury, prerenal, currently significantly improved. No evidence of obstruction on the ultrasound. 2. Chronic kidney disease with significant proteinuria. Baseline creatinine appears to be around 1.4 as it was about 1.4 in December of 2019 as well. Etiology diabetic kidney disease. Need to check 24 hour urine for protein. This could be done as outpatient. Consider kidney biopsy if there is significant nephrotic range proteinuria. 3. Diabetic ketoacidosis, currently resolved. 4. Hypertension, remains uncontrolled. Patient is maintained on clonidine and Cozaar. He was also on calcium channel blockers at home and I will add the amlodipine back. PLAN: Resume amlodipine and the patient will need followup as outpatient for CKD and further workup for proteinuria. MMODL / IJN: [id number] /
--- NOTE | 2020-11-07 18:13 | P.DS ---
Providers Date of admission: 11/02/20 22:35 Expected date of discharge: 11/05/20 Attending physician: Rodrigo Aguilar Consults: 11/02/20 22:35 Consult Physician Stat Consulting Provider: Mio Mahan Consult Reason/Comments: icu patient Do you want consulting provider notified?: Already Contacted 11/03/20 18:34 Consult Physician Routine Consulting Provider: Sheba Shaffer Consult Reason/Comments: Renal failure Do you want consulting provider notified?: Yes Primary care physician: Codey Mishra MD Hospital Course: Chief Complaint: Nausea vomiting History of presenting complaint: This is a pleasant 54-year-old patient of Dr. mishra from [place]. Patient is a type II diabetic with insulin pump was added for years. He states his Acc u-Cheks have not been well controlled recently. His diabetes is followed by his family doctor. On Friday evening he went to play golf. He had a what he thinks was a [employer] drink. That evening. When he came on into bed woke up around 2 in the morning throwing up multiple times. He stayed at home. He could not find his insulin pump. He thinks it could be wrapped up and is closed that he had vomited into. He did try to take some insulin injections in the meantime. His appetite has not been good. EMS was called out for his Accu- Cheks to be over 600. There is no abdominal pain. No fever no chills. No cough or shortness of breath. Patient was in diabetic ketoacidosis put on insulin drip. When this morning feeling a bit better. Feeling slightly nauseated. Does want eat a little bit. Admitted with diabetic ketoacidosis. Also found to have axillary did hypertension. Catapres added. Also acute on chronic kidney disease. Nephrology consulted. Creatinine was 3.15 on presentation did drop down to 1.44. Blood pressure is better controlled by the time of discharge. Today: Patient is back on his pump. He has not been very good with managing his diabetes. We'll have him follow-up with endocrinology. He'll also follow-up with nephrology. Care was discussed at length with the patient. Discussion and discharge planning more than 35 minutes Consultation: Dr. 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 Smoked a pack a day for about 35 years stopped about 6 months ago. Rare marijuana Physical examination: VITAL SIGNS: 97.3, 57, 16, 1 64 x 85, 96% room air GENERAL: BMI 25.7, sitting up in a bed, more comfortable EYES: Pupils equal. Conjunctiva normal. HEENT: External appearance of nose and ears normal, oral cavity dry mucous membranes. NECK: JVD not raised; masses not palpable. HEART: First and second heart sounds are normal; no edema. LUNGS: Respiratory rate normal; clear to auscultation. ABDOMEN: Soft, nontender, liver spleen not palpable, no masses palpable. PSYCH: Alert and oriented x3; mood and affect normal. INVESTIGATIONS, reviewed in the clinical context: November 05: Potassium 3.5 creatinine 1.44 November 04: WBC 9.9 hemoglobin 10.9 potassium 3.7 creatinine 1.83 November 03: WBC 14.8 hemoglobin 11.1 platelets 300 potassium 3 bicarbonate 25 creatinine 2.47 Admission labs: EKG tracing personally reviewed by me-normal sinus rhythm, nonspecific changes Chest x-ray film personally reviewed by me-lung spears clear WBC 15.2 hemoglobin 12.7 platelets 7.6 potassium 4.3 bicarbonate BUN 55 creatinine 2.97 blood glucose 585 lactic acid 2.5 Assessment and plan: -Diabetic ketoacidosis, improved Patient was put on a decub protocol including insulin drip and IV fluids -Diabetes mellitus type 2, chronically on insulin pump Uncontrolled with hyperglycemia, patient states he has not been very careful a bout the same -Essential hypertension -remains uncontrolled, Catapres to 0.2 mg 3 times a day. 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 Varenicline [Chantix Continuing Pack] 1 mg PO BID Atorvastatin Calcium [Lipitor] 10 mg PO DAILY Amlodipine/Valsartan/Hcthiazid [Amlodipine/Valsartan/Hcthiazid 10-320-25 MG] 1 tab PO DAILY Discharge Medication List Amlodipine/Valsartan/Hcthiazid [Amlodipine/Valsartan/Hcthiazid 10-320-25 MG] 1 tab PO DAILY 11/02/20 [History] Atorvastatin Calcium [Lipitor] 10 mg PO DAILY 11/02/20 [History] Insulin Aspart (For Pump) [NovoLOG (For Pump)] 0.01 unit SQ-PUMP CONTINUOUS MDD 100 UNITS 11/02/20 [History] Varenicline [Chantix Continuing Pack] 1 mg PO BID 11/02/20 [History] tadalafiL [Tadalafil] 20 mg PO DAILY PRN 11/02/20 [History] cloNIDine HCL [Catapres] 0.2 mg PO TID #90 tab 11/05/20 [Rx] Follow up Appointment(s)/Referral(s): Sheba Shaffer MD [STAFF PHYSICIAN] - 2 Weeks (Kidney doctor ) Edy Farooq MD [REFERRING] - 1 Week (Endocrine Specialist) Codey Mishra MD [Primary Care Provider] - 1-2 days (Office closed at time of discharge. Patient to make own follow-up appt. ) Patient Instructions/Handouts: Clonidine (By mouth), Diabetic Ketoacidosis (DC) Activity/Diet/Wound Care/Special Instructions: Avoid excessive alcohol. Maintain Insulin Pump Discharge Disposition: HOME SELF-CARE
== END 2020-11-05 14:02 | disposition home or self-care (01) | DRG 637 ==
LOC: EC 18:38 → 2SICU 22:35 → 5NMEDONC 11-03 11:48
PROVIDERS: ADMIT Hospitalist; ATTEND Hospitalist
DX: E11.10 Type 2 diabetes mellitus with ketoacidosis without coma (principal); N17.0 Acute kidney failure with tubular necrosis; E87.1 Hypo-osmolality and hyponatremia; E11.22 Type 2 diabetes mellitus with diabetic chronic kidney disease; D63.1 Anemia in chronic kidney disease; Z96.41 Presence of insulin pump (external) (internal); E86.1 Hypovolemia; E11.65 Type 2 diabetes mellitus with hyperglycemia; N18.9 Chronic kidney disease, unspecified; I10 Essential (primary) hypertension; Z20.822 Contact with and (suspected) exposure to COVID-19; D72.829 Elevated white blood cell count, unspecified; Z83.6 Family history of other diseases of the respiratory system; Z87.891 Personal history of nicotine dependence; Z79.4 Long term (current) use of insulin; Z79.899 Other long term (current) drug therapy; Z91.14 Patient's other noncompliance with medication regimen
CPT/HCPCS: 36415; 71045; 76770; 80048; 80051; 80053; 81001; 82565; 82570; 82803; 82947; 83605; 83690; 83735; 84100; 84156; 84520; 85025; 87040; 87635; 93005; 96361; 96374; 96375; 99291

== ENCOUNTER → 2021-11-09 | Outpatient (CLI) | payer BC ==
--- NOTE | 2021-11-12 11:05 | USB ---
Reason for exam: clinical finding. Physical Findings: A clinical breast exam by your physician is recommended on an annual basis and results should be correlated with mammographic findings. US Breast BILAT Right complete breast ultrasound includes all four quadrants, the retroareolar region and axilla. Finding demonstrates a 3.1 x 1.0 x 2.7cm hypoechoic lesion at the posterior nipple. Left complete breast ultrasound includes all four quadrants, the retroareolar region and axilla. Finding demonstrates a 4.2 x 0.8 x 2.8cm hypoechoic lesion at the posterior nipple. Results were given to the patient verbally at the time of the exam. ASSESSMENT: Probably benign, BI-RAD 3 RECOMMENDATION: Ultrasound of both breasts in 6 months. Manage patient on a clinical basis.
== END | disposition home or self-care (01) ==
LOC: RADUSWWP 14:51
PROVIDERS: ATTEND Family Medicine
DX: N64.89 Other specified disorders of breast (principal)

== ENCOUNTER 2021-12-20 02:01 | Emergency (ER) | payer BC ==
[2021-12-20 02:12] VITALS: BP 165/94; PULSE 72; RESP 19; TEMP 98
[2021-12-20] MEDS ORDERED: VANCOMYCIN IV PER PHARMACY 1 EACH MISC MISCELLANE PRN (03:39)
[2021-12-20] MEDS ORDERED: VANCOMYCIN 1,500 MG in SODIUM CHLORIDE 0.9% 250 ML IVPB STA (03:41)
--- NOTE | 2021-12-20 04:54 | ED ---
Extremity Problem HPI - General Chief complaint: Extremity Problem,Nontraumatic Stated complaint: Infection, sent by PCP Time Seen by Provider: 12/20/21 02:42 Source: patient Mode of arrival: ambulatory - History of Present Illness Initial comments: This patient is a 56-year-old man who presents to have evaluation of foot ulcer. The patient states that after doing extensive walking he had developed ulcer to the plantar aspect of right foot. He was seen by his physician who started him on antibiotics. He has had one dose of the medication so far. The patient is concerned because there has been some drainage from the ulcer. He has not had any systemic symptoms. There is no fever or chills. No chest pain, palpitations, dyspnea. MD Complaint: other -: days(s) Location: right, lower extremity Radiation: none Consistency: constant Improves with: nothing - Related Data Home Medications Medication Instructions Recorded Confirmed Amlodipine/Valsartan/Hcthiazid 1 tab PO DAILY 11/02/20 11/02/20 [Amlodipine/Valsartan/Hcthiazid 10-320-25 MG] Atorvastatin Calcium [Lipitor] 10 mg PO DAILY 11/02/20 11/02/20 Insulin Aspart (For Pump) [NovoLOG 0.01 unit SQ-PUMP CONTINUOUS MDD 11/02/20 11/02/20 (For Pump)] 100 UNITS Varenicline [Chantix Continuing 1 mg PO BID 11/02/20 11/02/20 Pack] tadalafiL 20 mg PO DAILY PRN 11/02/20 11/02/20 Previous Rx's Medication Instructions Recorded cloNIDine HCL [Catapres] 0.2 mg PO TID #90 tab 11/05/20 Allergies Allergy/AdvReac Type Severity Reaction Status Date / Time No Known Allergies Allergy Verified 12/20/21 02:12 Review of Systems ROS Statement: Those systems with pertinent positive or pertinent negative responses have been documented in the HPI. ROS Other: All systems not noted in ROS Statement are negative. Constitutional: Denies: fever, chills Respiratory: Denies: dyspnea Cardiovascular: Denies: chest pain, palpitations Musculoskeletal: Reports: as per HPI Skin: Reports: as per HPI, lesions Neurological: Denies: weakness, numbness, paresthesias Past Medical History Past Medical History: Diabetes Mellitus, Hypertension Additional Past Medical History / Comment(s): IDDM type I on insulin pump, DKA History of Any Multi-Drug Resistant Organisms: None Reported Past Surgical History: No Surgical Hx Reported Additional Past Surgical History / Comment(s): R knee arthroscopy, circumcism Past Anesthesia/Blood Transfusion Reactions: No Reported Reaction Past Psychological History: No Psychological Hx Reported Smoking Status: Former smoker Past Alcohol Use History: Occasional Past Drug Use History: Marijuana - Past Family History Mother Family Medical History: COPD Father Family Medical History: No Reported History Additional Family Medical History / Comment(s): Mother is healthy. General Exam General appearance: alert, in no apparent distress Head exam: Present: atraumatic, normocephalic Respiratory exam: Present: normal lung sounds bilaterally. Absent: respiratory distress, wheezes, rales, rhonchi, stridor Cardiovascular Exam: Present: regular rate, normal rhythm, normal heart sounds. Absent: systolic murmur, diastolic murmur, rubs, gallop Skin exam: Present: warm, dry, normal color, other (Patient does have approximately 1.5 cm diameter ulcer to the plantar aspect of the foot. No purulent drainage. No erythema or warmth.) Course Vital Signs 12/20/21 02:08 Temperature 98 F Pulse Rate 72 Respiratory 19 Rate Blood Pressure 165/94 O2 Sat by Pulse 98 Oximetry Medical Decision Making - Medical Decision Making Patient's 56-year-old man with foot ulcer that does have a reasonably good clinical appearance. No signs of infection currently and patient is taking anti biotics. Given his diabetes the patient is given dose of IV antibiotics. We discussed appropriate further care and follow-up as well as return parameters. Patient understands this must be watched very closely as it can develop into a limb threatening problem and he will have close follow-up Disposition Clinical Impression: Foot ulcer Disposition: HOME SELF-CARE Condition: Good Instructions (If sedation given, give patient instructions): Diabetic Foot Ulcers (ED) Is patient prescribed a controlled substance at d/c from ED?: No Referrals: Codey Mishra MD [Primary Care Provider] - 1-2 days
== END 2021-12-20 06:26 | disposition home or self-care (01) ==
LOC: EC 02:01
DX: L97.509 Non-pressure chronic ulcer of other part of unspecified foot with unspecified severity (principal); E11.9 Type 2 diabetes mellitus without complications; I10 Essential (primary) hypertension; Z87.891 Personal history of nicotine dependence
CPT/HCPCS: 99283; 96365; 96366; J3370

== ENCOUNTER → 2021-12-24 | Outpatient (CLI) | payer BC ==
--- NOTE | 2021-12-25 11:56 | US ---
EXAMINATION TYPE: US kidneys/renal and bladder DATE OF EXAM: 12/24/2021 COMPARISON: 11/03/2020 CLINICAL HISTORY: 56-year-old male N18.30 CHR KIDNEY DISEASE STAGE 3. EXAM MEASUREMENTS: Right Kidney: 11.3 x 5.9 x 5.9 cm Left Kidney: 10.2 x 6.4 x 5.8 cm Right Kidney: two cysts, laterally measuring 2.2 cm and 1.9 cm (largely unchanged). No hydronephrosis . Left Kidney: No hydronephrosis or masses seen Bladder: wnl IMPRESSION: A couple benign cortical cysts in the right kidney measure up to 2.2 cm. No hydronephrosis.
== END | disposition home or self-care (01) ==
LOC: RADUSWWP 15:58
PROVIDERS: ATTEND Family Medicine
DX: N18.30 Chronic kidney disease, stage 3 unspecified (principal); N28.1 Cyst of kidney, acquired
CPT/HCPCS: 76770

== ENCOUNTER → 2022-01-02 | Outpatient (CLI) | payer BC ==
[2022-01-02 15:53] LABS: African American GFR (CKD) 15.4 (60.0-200.0); Albumin 3.7 g/dL (3.8-4.9); Albumin/Globulin Ratio 1.37 (1.60-3.17); Anion Gap 14.5 mmol/L (10.00-18.00); BUN/Creat Ratio 15.7 Ratio (12.00-20.00); Blood Urea Nitrogen 72.2 mg/dL (9.0-27.0); Calcium 9.4 mg/dL (8.7-10.3); Carbon Dioxide 23.5 mmol/L (20.0-27.5); Globulin 2.7 g/dL (1.6-3.3); Non-African American GFR(CKD) 13.3 (60.0-200.0); Potassium 4.7 mmol/L (3.5-5.5); Prealbumin 26.4 mg/dL (18.0-42.0); Total Bilirubin 0.3 mg/dL (0.30-1.20); Total Protein 6.4 g/dL (6.2-8.2)
[2022-01-02 16:19] LABS: Basophils # (A) 0.04 X 10*3/uL (0.00-0.10); Basophils % (A) 0.6 %; Eosinophils # (A) 1.36 X 10*3/uL (0.04-0.35); Eosinophils % (A) 20.6 %; HCT 30.7 % (39.6-50.0); HGB 10.1 g/dL (13.0-17.0); Immature Grans, Automated 0.3 %; Lymphocytes # (A) 1.44 X 10*3/uL (0.90-5.00); Lymphocytes % (A) 21.9 %; MCHC 32.9 g/dL (32.0-37.0); MCV 91.1 fL (80.0-97.0); Mean Platelet Volume 10.7 fL (9.5-12.2); Monocytes # (A) 0.42 X 10*3/uL (0.20-1.00); Monocytes % (A) 6.4 %; NRBC Per 100 WBC 0 /100 WBCS (0.0-0.0); Neutrophils # (A) 3.31 X 10*3/uL (1.80-7.70); Neutrophils % (A) 50.2 %; Platelet Count 199 X 10*3/uL (140-440); RBC 3.37 X 10*6/uL (4.40-5.60); RDW 12.8 % (11.5-14.5); WBC 6.59 X 10*3/uL (4.50-10.00)
== END | disposition home or self-care (01) ==
LOC: LABWHC1 10:14
PROVIDERS: ATTEND Thoracic Surgery (Cardiothoracic Vascular Surgery)
DX: L97.522 Non-pressure chronic ulcer of other part of left foot with fat layer exposed (principal); E08.621 Diabetes mellitus due to underlying condition with foot ulcer
CPT/HCPCS: 36415; 80053; 83036; 84134; 85025

== ENCOUNTER → 2022-04-15 | Outpatient (CLI) | payer BC ==
[2022-04-15 15:13] LABS: HCT 28.2 % (39.6-50.0); MCH 30.6 pg (27.0-32.0); MCHC 31.9 g/dL (32.0-37.0); MCV 95.9 fL (80.0-97.0); Mean Platelet Volume 10.3 fL (9.5-12.2); NRBC Per 100 WBC 0 /100 WBCS (0.0-0.0); Platelet Count 250 X 10*3/uL (140-440); RBC 2.94 X 10*6/uL (4.40-5.60); RDW 13.8 % (11.5-14.5); WBC 9.15 X 10*3/uL (4.50-10.00)
[2022-04-15 16:13] LABS: % Iron Saturation 17.58 (15.00-50.00); ALT 19 U/L (10-49); AST 15 U/L (14-35); Albumin 3.7 g/dL (3.8-4.9); Albumin/Globulin Ratio 1.72 (1.60-3.17); Alkaline Phosphatase 61 U/L (41-126); BUN/Creat Ratio 13.97 Ratio (12.00-20.00); Blood Urea Nitrogen 59.5 mg/dL (9.0-27.0); Calcium 8.6 mg/dL (8.7-10.3); Carbon Dioxide 22.6 mmol/L (20.0-27.5); Chloride 107 mmol/L (96-109); Globulin 2.1 g/dL (1.6-3.3); Glucose 191 mg/dL (70-110); Iron 51 ug/dL (65-175); Magnesium 2.5 mg/dL (1.5-2.4); Non-African American GFR(CKD) 14.6 (60.0-200.0); Phosphorus 3.8 mg/dL (2.4-5.1); Potassium 5.1 mmol/L (3.5-5.5); Sodium 141 mmol/L (135-145); Total Bilirubin <0.15 mg/dL (0.30-1.20); Total Iron Binding Capacity 291 ug/dL (228-460); Total Protein 5.8 g/dL (6.2-8.2)
[2022-04-15 16:29] LABS: Chol/HDL Ratio 2.16 Ratio; LDL Cholesterol,Calculated 48.5 mg/dL (0.0-131.0)
[2022-04-15 18:29] LABS: Appearance,Urine Clear (Clear); Bilirubin,Urine Negative (Negative); Blood,Urine Negative (Negative); Color,Urine Yellow (Yellow); Ketones,Urine Trace mg/dL (Negative); Nitrite,Urine Negative (Negative); PH, Urine 5.5 (5.0-8.0); Specific Gravity,Urine 1.018 (1.001-1.030); Urobilinogen,Urine 0.2 (0.2,1.0)
[2022-04-15 19:05] LABS: Bacteria,Urine None Seen /HPF (None Seen)
[2022-04-15 22:55] LABS: Urine Creatinine 97.7 mg/dL (39.0-259.0)
== END ==
LOC: LABWHC1 08:43
PROVIDERS: ATTEND Nurse Practitioner Acute Care
DX: N25.81 Secondary hyperparathyroidism of renal origin (principal); E78.2 Mixed hyperlipidemia; N18.4 Chronic kidney disease, stage 4 (severe); R80.9 Proteinuria, unspecified; E55.9 Vitamin D deficiency, unspecified; D63.1 Anemia in chronic kidney disease; N39.0 Urinary tract infection, site not specified
CPT/HCPCS: 36415; 80053; 80061; 81001; 82043; 82306; 82570; 82728; 83540; 83550; 83735; 83970; 84100; 84156; 85027

== ENCOUNTER → 2022-04-30 | Outpatient (CLI) | payer BC ==
[2022-04-30 16:39] LABS: Appearance,Urine Clear (Clear); Bacteria,Urine Rare /hpf; Bilirubin,Urine Negative (Negative); Blood,Urine Negative (Negative); Color,Urine Light Yellow; Glucose,Urine (UA) 3+ (Negative); Hyaline Casts,Urine 7 /lpf (0-2); Ketones,Urine Negative (Negative); Leukocyte Esterase,Urine Negative (Negative); Mucus,Urine Rare /hpf; Nitrite,Urine Negative (Negative); Protein,Urine 3+ (Negative); RBC,Urine 2 /hpf (0-5); Specific Gravity,Urine 1.009 (1.001-1.035); Squamous Epithelial Cell,Urine 1 /hpf (0-4); Urobilinogen,Urine <2.0 mg/dL (<2.0); WBC,Urine 1 /hpf (0-5)
[2022-05-01] LABS: Basophils # (A) 0.07 X 10*3/uL (0.00-0.10); Basophils % (A) 1.1 %; Eosinophils # (A) 0.88 X 10*3/uL (0.04-0.35); Eosinophils % (A) 13.3 %; HGB 8.2 g/dL (13.0-17.0); Immature Grans, Automated 0.2 %; Lymphocytes # (A) 1.69 X 10*3/uL (0.90-5.00); Lymphocytes % (A) 25.6 %; MCH 30.5 pg (27.0-32.0); MCHC 32.8 g/dL (32.0-37.0); MCV 92.9 fL (80.0-97.0); Mean Platelet Volume 10.7 fL (9.5-12.2); Monocytes # (A) 0.53 X 10*3/uL (0.20-1.00); NRBC Per 100 WBC 0 /100 WBCS (0.0-0.0); Neutrophils # (A) 3.43 X 10*3/uL (1.80-7.70); Neutrophils % (A) 51.8 %; Platelet Count 257 X 10*3/uL (140-440); RBC 2.69 X 10*6/uL (4.40-5.60); RDW 13.1 % (11.5-14.5); WBC 6.61 X 10*3/uL (4.50-10.00)
[2022-05-01 06:57] LABS: ALT 13 U/L (10-49); AST 14 U/L (14-35); African American GFR (CKD) 19.5 (60.0-200.0); Albumin 3.4 g/dL (3.8-4.9); Albumin/Globulin Ratio 1.48 (1.60-3.17); Alkaline Phosphatase 55 U/L (41-126); Blood Urea Nitrogen 72.2 mg/dL (9.0-27.0); Calcium 8.2 mg/dL (8.7-10.3); Carbon Dioxide 19.2 mmol/L (20.0-27.5); Chloride 104 mmol/L (96-109); Globulin 2.3 g/dL (1.6-3.3); Glucose 213 mg/dL (70-110); Magnesium 2.3 mg/dL (1.5-2.4); Non-African American GFR(CKD) 16.8 (60.0-200.0); Phosphorus 4.1 mg/dL (2.4-5.1); Potassium 3.9 mmol/L (3.5-5.5); Sodium 135 mmol/L (135-145); Total Bilirubin <0.15 mg/dL (0.30-1.20); Total Protein 5.7 g/dL (6.2-8.2)
== END | disposition home or self-care (01) ==
LOC: LABWHC1 16:04
PROVIDERS: ATTEND Internal Medicine Nephrology
DX: N18.4 Chronic kidney disease, stage 4 (severe) (principal)
CPT/HCPCS: 36415; 80053; 81001; 83735; 84100; 85025

== ENCOUNTER 2022-05-29 07:50 | Day surgery (SDC) | payer BC ==
[~2022-05-29 07:50] MED LIST: DESMOPRESSIN ACETATE 30 MCG in SODIUM CHLORIDE 0.9% 50 ML IVPB ONE
[2022-05-29 08:55] VITALS: BP 164/79; PULSE 65; RESP 16; TEMP 97.5
== END 2022-05-29 08:55 | disposition home or self-care (01) ==
LOC: RADPROMAIN 07:50
PROVIDERS: ATTEND Internal Medicine Nephrology
DX: Z53.9 Procedure and treatment not carried out, unspecified reason (principal)

== ENCOUNTER → 2022-06-24 | Outpatient (CLI) | payer BC ==
[2022-06-24 17:11] LABS: INR 0.9 (<1.2); Partial Thromboplastin Time 24.2 sec (22.0-30.0)
[2022-06-24 23:34] LABS: ALT 20 U/L (10-49); AST 18 U/L (14-35); African American GFR (CKD) 14.2 (60.0-200.0); Albumin 3.3 g/dL (3.8-4.9); Albumin/Globulin Ratio 1.59 (1.60-3.17); Alkaline Phosphatase 69 U/L (41-126); BUN/Creat Ratio 10.18 Ratio (12.00-20.00); Blood Urea Nitrogen 50.1 mg/dL (9.0-27.0); Carbon Dioxide 20.9 mmol/L (20.0-27.5); Chloride 106 mmol/L (96-109); Glucose 103 mg/dL (70-110); Magnesium 2.3 mg/dL (1.5-2.4); Non-African American GFR(CKD) 12.3 (60.0-200.0); Phosphorus 4.2 mg/dL (2.4-5.1); Potassium 3.7 mmol/L (3.5-5.5); Sodium 140 mmol/L (135-145); Total Bilirubin <0.15 mg/dL (0.30-1.20); Total Protein 5.3 g/dL (6.2-8.2)
[2022-06-25 03:31] LABS: Basophils # (A) 0.06 X 10*3/uL (0.00-0.10); Basophils % (A) 0.9 %; Eosinophils # (A) 1.48 X 10*3/uL (0.04-0.35); Eosinophils % (A) 23.1 %; HCT 25.4 % (39.6-50.0); HGB 8.1 g/dL (13.0-17.0); Immature Grans, Automated 0.3 %; Lymphocytes # (A) 1.24 X 10*3/uL (0.90-5.00); Lymphocytes % (A) 19.4 %; MCH 31.3 pg (27.0-32.0); MCHC 31.9 g/dL (32.0-37.0); MCV 98.1 fL (80.0-97.0); Mean Platelet Volume 10.7 fL (9.5-12.2); Monocytes # (A) 0.57 X 10*3/uL (0.20-1.00); Monocytes % (A) 8.9 %; NRBC Per 100 WBC 0 /100 WBCS (0.0-0.0); Neutrophils # (A) 3.03 X 10*3/uL (1.80-7.70); Neutrophils % (A) 47.4 %; Platelet Count 250 X 10*3/uL (140-440); RBC 2.59 X 10*6/uL (4.40-5.60); RDW 13.1 % (11.5-14.5)
[2022-06-25 03:32] LABS: RBC Morphology NORMAL
[2022-06-25 04:47] LABS: Appearance,Urine Clear (Clear); Bilirubin,Urine Negative (Negative); Blood,Urine Negative (Negative); Color,Urine Yellow (Yellow); Ketones,Urine Negative (Negative); Nitrite,Urine Negative (Negative); PH, Urine 5.5 (5.0-8.0); Specific Gravity,Urine 1.018 (1.001-1.030); Urobilinogen,Urine 0.2 (0.2,1.0)
[2022-06-26 05:40] LABS: Total Volume 24 Hour,Urine 2300 mL
== END | disposition home or self-care (01) ==
LOC: LABWHC1 15:52
PROVIDERS: ATTEND Internal Medicine Nephrology
DX: N18.4 Chronic kidney disease, stage 4 (severe) (principal)
CPT/HCPCS: 36415; 80053; 81001; 81050; 83735; 84100; 84156; 85025; 85610; 85730; 86850; 86870; 86880; 86900; 86901

== ENCOUNTER → 2022-06-25 | Outpatient (CLI) | payer BC | END | disposition home or self-care (01) | LOC: LABWHC1 15:51 | PROVIDERS: ATTEND Internal Medicine Nephrology | DX: Z53.9 Procedure and treatment not carried out, unspecified reason (principal) ==

== ENCOUNTER 2022-07-02 07:50 | Day surgery (SDC) | payer BC ==
[2022-07-02 08:50] VITALS: BP 156/69; PULSE 67; RESP 16; TEMP 97.8
[2022-07-02] MEDS ORDERED: DESMOPRESSIN ACETATE 32 MCG in SODIUM CHLORIDE 0.9% 50 ML IV ONE (09:00)
[2022-07-02 09:10] LABS: HCT 24.1 % (39.0-53.0); MCH 31.7 pg (25.0-35.0); MCHC 33.5 g/dL (31.0-37.0); Mean Platelet Volume 8.4; Platelet Count 252 k/uL (150-450); RBC 2.54 m/uL (4.30-5.90); RDW 13.4 % (11.5-15.5); WBC 5.7 k/uL (3.8-10.6)
[2022-07-02 09:11] LABS: MCV 94.7 fL (80.0-100.0)
[2022-07-02 09:13] LABS: INR 0.9 (<1.2)
[2022-07-02 09:28] LABS: Lymphocytes # (M) 0.63 k/uL (1.0-4.8); Monocytes # (M) 0.46 k/uL (0-1.0); Neutrophils # (M) 3.02 k/uL (1.3-7.7); Neutrophils % (M) 53 %; Nucleated Red Blood Cells 0 /100 WBC (0-0); RBC Morphology Normal; Total Cells Counted 100
== END 2022-07-02 09:53 | disposition home or self-care (01) ==
LOC: RADPROMAIN 07:50
PROVIDERS: ATTEND Internal Medicine Nephrology
DX: N18.4 Chronic kidney disease, stage 4 (severe) (principal); D64.9 Anemia, unspecified
CPT/HCPCS: 82947; 85025; 85610; 86850; 86870; 86880; 86900; 86901

== ENCOUNTER 2022-08-06 15:58 | Emergency (ER) | payer BC ==
--- NOTE | 2022-08-06 17:37 | ED ---
Abdominal Pain HPI - General Source: patient, RN notes reviewed Mode of arrival: wheelchair <NydiaPuma gracena - Last Filed: 08/06/22 17:37> <Mariel Hernandez - Last Filed: 08/06/22 19:25> <Angel Mccann - Last Filed: 08/06/22 19:55> - General Chief Complaint: Abdominal Pain Stated Complaint: abd pain Time Seen by Provider: 08/06/22 17:34 - History of Present Illness Initial Comments: Medical screen exam: santiago is a 56-year-old male who presents to the emergency department with a chief complaint abdominal pain. Patient has history of type 1 diabetes and chronic kidney disease stage IV. He had a left kidney biopsy today around 10 AM and shortly after he began to endorse significant left-sided abdominal pain. Pain is in the left upper abdomen with radiation to the left lower abdomen and left groin. He reports nausea without vomiting. Denies fever, chills, chest pain, shortness of breath, lightheadedness, dizziness, diarrhea, blood in the urine, burning with urination, penile discharge. Patient in no apparent distress, vitals stable. (Natty Stafford) This is a 56-year-old male who presents emergency department for abdominal and back pain. The patient stated that he just went to [facility] for a kidney biopsy this morning and was sent home. The patient stated a increasing abdominal pain throughout the day and was extremely worse this afternoon. The patient did report some mild lightheadedness and dizziness. The patient stated that he did some research and was concerned for continued bleed and presents emergency department. On evaluation, the patient was agitated and in distress secondary to pain but denied any current lightheadedness or dizziness. The patient denied any fevers and chills. (Angel Mccann) - Related Data Home Medications Medication Instructions Recorded Confirmed hydrALAZINE HCL [Apresoline] 100 mg PO TID 05/22/22 08/06/22 Atorvastatin [Lipitor] 20 mg PO DAILY 08/06/22 08/06/22 Labetalol HCl 200 mg PO BID 08/06/22 08/06/22 Torsemide [Demadex] 40 mg PO DAILY 08/06/22 08/06/22 Valsartan [Diovan] 160 mg PO DAILY 08/06/22 08/06/22 amLODIPine [Norvasc] 10 mg PO DAILY 08/06/22 08/06/22 Previous Rx's Medication Instructions Recorded cloNIDine HCL [Catapres] 0.2 mg PO TID #90 tab 11/05/20 Allergies Allergy/AdvReac Type Severity Reaction Status Date / Time No Known Allergies Allergy Verified 08/06/22 16:19 Review of Systems ROS Other: All systems not noted in ROS Statement are negative. <Natty Stafford - Last Filed: 08/06/22 17:37> ROS Other: All systems not noted in ROS Statement are negative. <Mariel Hernandez - Last Filed: 08/06/22 19:25> ROS Other: All systems not noted in ROS Statement are negative. <Angel Mccann - Last Filed: 08/06/22 19:55> ROS Statement: Those systems with pertinent positive or pertinent negative responses have been documented in the HPI. Past Medical History Past Medical History: Diabetes Mellitus, Hyperlipidemia, Hypertension, Renal Disease Additional Past Medical History / Comment(s): IDDM type I on insulin pump, DKA, chronic kidney disease, bilateral lower extremity edema History of Any Multi-Drug Resistant Organisms: None Reported Past Surgical History: No Surgical Hx Reported Additional Past Surgical History / Comment(s): R knee arthroscopy, circumcism Past Anesthesia/Blood Transfusion Reactions: No Reported Reaction Past Psychological History: No Psychological Hx Reported Smoking Status: Former smoker - Past Family History Mother Family Medical History: COPD Father Family Medical History: No Reported History Additional Family Medical History / Comment(s): Mother is healthy. <Natty Stafford - Last Filed: 08/06/22 17:37> General Exam Limitations: no limitations General appearance: alert, in distress (The patient had moderate distress secondary to back and abdominal pain.) Head exam: Present: atraumatic, normocephalic, normal inspection Eye exam: Present: normal appearance, PERRL Pupils: Present: normal accommodation ENT exam: Present: normal exam, normal oropharynx, mucous membranes moist Neck exam: Present: normal inspection, full ROM Respiratory exam: Present: normal lung sounds bilaterally Cardiovascular Exam: Present: regular rate, normal rhythm, normal heart sounds GI/Abdominal exam: Present: soft, tenderness (TTP throughout the abdomen), no rmal bowel sounds Extremities exam: Present: normal inspection, full ROM Back exam: Present: normal inspection, full ROM Neurological exam: Present: alert, oriented X3, CN II-XII intact Psychiatric exam: Present: normal affect, normal mood Skin exam: Present: warm, dry <Angel Mccann - Last Filed: 08/06/22 19:55> Course <Mariel Hernandez - Last Filed: 08/06/22 19:25> Vital Signs 08/06/22 08/06/22 16:16 18:11 Temperature 97.3 F L Pulse Rate 68 90 Respiratory 16 20 Rate Blood Pressure 147/76 129/60 O2 Sat by Pulse 97 94 L Oximetry - Reevaluation(s) Reevaluation #1: 08/06/22 19:25 Dr. Mccann spoke with [facility] who agrees with the plan and accepts the patient for transfer (Mariel Hernandez) Medical Decision Making - Lab Data Result diagrams: 08/06/22 18:10 08/06/22 18:10 <Mariel Hernandez - Last Filed: 08/06/22 19:25> - Lab Data Result diagrams: 08/06/22 18:10 08/06/22 18:10 <Angel Mccann - Last Filed: 08/06/22 19:55> - Medical Decision Making Was pt. sent in by a medical professional or institution (, PA, [facility], urgent care, hospital, or care home...) When possible be specific @ -No Did you speak to anyone other than the patient for history (EMS, parent, family, police, friend...)? What history was obtained from this source @ -Yes, patient's Did you review nursing and triage notes (agree or disagree)? Why? @ -I reviewed and agree with nursing and triage notes Were old charts reviewed (outside hosp., previous admission, EMS record, old EKG, old radiological studies, urgent care reports/EKG's, care home records)? Report findings @ -No old charts were reviewed Differential Diagnosis (chest pain, altered mental status, abdominal pain women, abdominal pain men, vaginal bleeding, weakness, fever, dyspnea, syncope, headache, dizziness, GI bleed, back pain, seizure, CVA, palpatations, mental health)? @ -Acute retroperitoneal hematoma, active retroperitoneal bleed EKG interpreted by me (3pts min.). @ -None X-rays interpreted by me (1pt min.). @ -None done CT interpreted by me (1pt min.). @ -CT of the abdomen and pelvis was obtained without contrast the patient has significant chronic kidney disease and decreased function. CT of the abdomen and pelvis was obtained and was interpreted by myself showing a large left-sided acute hemorrhage with perinephric hematoma and subcapsular hematoma and displacement of the kidney anteriorly. U/S interpreted by me (1pt. min.). @ -None done What testing was considered but not performed or refused? (CT, X-rays, U/S, labs)? Why? @ -None What meds were considered but not given or refused? Why? @ -None Did you discuss the management of the patient with other professionals (mundo pan i.e. , PA, [facility], lab, RT, psych nurse, social media marketing manager, car ferry master, teacher, emergency response officer, case consultant)? Give summary @ -Yes, transferring, accepting physician, Dr. Curtis at [facility] Was smoking cessation discussed for >3mins.? @ -No Was critical care preformed (if so, how long)? @ -Yes, see above Were there social determinants of health that impacted care today? How? (Homelessness, low income, unemployed, alcoholism, drug addiction, transportation, low edu. Level, literacy, decrease access to med. care, senior care, rehab)? @ -No Was there de-escalation of care discussed even if they declined (Discuss DNR or withdrawal of care, Hospice)? DNR status @ -No What co-morbidities impacted this encounter? (DM, HTN, Smoking, COPD, CAD, Cancer, CVA, ARF, Chemo, Hep., AIDS, mental health diagnosis, sleep apnea, morbid obesity)? @ -Chronic kidney disease Was patient admitted / discharged? Hospital course, mention meds given and route, prescriptions, significant lab abnormalities, going to OR and other pertinent info. @ -The patient was seen and evaluated emergency department. Physical exam, the patient was resting in bed without any acute distress. The patient having given morphine prior to my evaluation. Vital signs did remain stable. Laboratory workup was obtained and showed significant for hemoglobin of 6.0. A type and screen was obtained in triage. When I evaluated the patient, I did order 2 units of packed red blood cells to be given sequentially. CT abdomen and pelvis without contrast was obtained as the patient had significant chronic kidney disease. CT abdomen and pelvis showed a significant large left-sided retroperitoneal acute hemorrhage with perinephric hematoma and subcapsular hematoma and displacement of the kidney anteriorly. The patient was told of this result. Because the patient had his procedure done at the outside facility this morning, transfer was arranged to transfer the patient back to the outside facility, [facility] for further workup and evaluation with likely intervention with interventional radiology. The patient was accepted for transfer by Dr. Curtis at 1920 as a transfer to the emergency department at [facility]. The patient was agreeable to this plan and was transferred in stable condition. Undiagnosed new problem with uncertain prognosis? @ -No Drug Therapy requiring intensive monitoring for toxicity (Heparin, Nitro, Insulin, Cardizem)? @ -No Were any procedures done? @ -No Diagnosis/symptom? @ -Acute, large left retroperitoneal active hemorrhage, perinephric hematoma, subcapsular hematoma Acute, or Chronic, or Acute on Chronic? @ -Acute Uncomplicated (without systemic symptoms) or Complicated (systemic symptoms)? @ -Complicated Side effects of treatment? @ -No Exacerbation, Progression, or Severe Exacerbation? @ -No Poses a threat to life or bodily function? How? (Chest pain, USA, [place], pneumonia, PE, COPD, DKA, ARF, appy, cholecystitis, CVA, Diverticulitis, Homicidal, Suici k[place]a, threat to staff... and all critical care pts) @ -Yes, large retroperitoneal bleed can worsen and cause possible (Angel Mccann) - Lab Data Lab Results 08/06/22 08/06/22 08/06/22 Range/Units 18:00 18:10 18:10 WBC 8.1 (3.8-10.6) k/uL RBC 1.93 L (4.30-5.90) m/uL Hgb 6.0 L* D (13.0-17.5) gm/dL Hct 18.0 L* (39.0-53.0) % MCV 93.4 (80.0-100.0) fL MCH 31.0 (25.0-35.0) pg MCHC 33.2 (31.0-37.0) g/dL RDW 13.9 (11.5-15.5) % Plt Count 265 (150-450) k/uL MPV 7.5 Neutrophils % 86 % Lymphocytes % 6 % Monocytes % 4 % Eosinophils % 3 % Basophils % 0 % Neutrophils # 7.0 (1.3-7.7) k/uL Lymphocytes # 0.5 L (1.0-4.8) k/uL Monocytes # 0.3 (0-1.0) k/uL Eosinophils # 0.3 (0-0.7) k/uL Basophils # 0.0 (0-0.2) k/uL PT (9.0-12.0) sec INR (<1.2) APTT (22.0-30.0) sec Sodium 136 L (137-145) mmol/L Potassium 4.2 (3.5-5.1) mmol/L Chloride 105 (98-107) mmol/L Carbon Dioxide 23 (22-30) mmol/L Anion Gap 8 mmol/L BUN 65 H (9-20) mg/dL Creatinine 5.76 H (0.66-1.25) mg/dL Est GFR (CKD-EPI)AfAm 12 (>60 ml/min/1.73 sqM) Est GFR (CKD-EPI)NonAf 10 (>60 ml/min/1.73 sqM) Glucose 95 (74-99) mg/dL Plasma Lactic Acid Howard (0.7-2.0) mmol/L Calcium 7.5 L (8.4-10.2) mg/dL Total Bilirubin 0.4 (0.2-1.3) mg/dL AST 19 (17-59) U/L ALT 19 (4-49) U/L Alkaline Phosphatase 74 (38-126) U/L Total Protein 5.3 L (6.3-8.2) g/dL Albumin 2.7 L (3.5-5.0) g/dL Lipase 59 (23-300) U/L Blood Type A Negative Blood Type Recheck A Neg Bld Type Recheck Status No Antibody Screen NEGATIVE Crossmatch See Detail Spec Expiration Date 08/09/2022 - 229908/06/22 08/06/22 Range/Units 18:10 18:10 WBC (3.8-10.6) k/uL RBC (4.30-5.90) m/uL Hgb (13.0-17.5) gm/dL Hct (39.0-53.0) % MCV (80.0-100.0) fL MCH (25.0-35.0) pg MCHC (31.0-37.0) g/dL RDW (11.5-15.5) % Plt Count (150-450) k/uL MPV Neutrophils % % Lymphocytes % % Monocytes % % Eosinophils % % Basophils % % Neutrophils # (1.3-7.7) k/uL Lymphocytes # (1.0-4.8) k/uL Monocytes # (0-1.0) k/uL Eosinophils # (0-0.7) k/uL Basophils # (0-0.2) k/uL PT 10.8 (9.0-12.0) sec INR 1.0 (<1.2) APTT 24.7 (22.0-30.0) sec Sodium (137-145) mmol/L Potassium (3.5-5.1) mmol/L Chloride (98-107) mmol/L Carbon Dioxide (22-30) mmol/L Anion Gap mmol/L BUN (9-20) mg/dL Creatinine (0.66-1.25) mg/dL Est GFR (CKD-EPI)AfAm (>60 ml/min/1.73 sqM) Est GFR (CKD-EPI)NonAf (>60 ml/min/1.73 sqM) Glucose (74-99) mg/dL Plasma Lactic Acid Howard 0.8 (0.7-2.0) mmol/L Calcium (8.4-10.2) mg/dL Total Bilirubin (0.2-1.3) mg/dL AST (17-59) U/L ALT (4-49) U/L Alkaline Phosphatase (38-126) U/L Total Protein (6.3-8.2) g/dL Albumin (3.5-5.0) g/dL Lipase (23-300) U/L Blood Type Blood Type Recheck Bld Type Recheck Status Antibody Screen Crossmatch Spec Expiration Date Critical Care Time Critical Care Time: Yes Total Critical Care Time: 32 <Angel Mccann - Last Filed: 08/06/22 19:55> Disposition <Natty Stafford - Last Filed: 08/06/22 17:37> <Mariel Hernandez - Last Filed: 08/06/22 19:25> Is patient prescribed a controlled substance at d/c from ED?: No Time of Disposition: 19:20 - Out of Hospital Transfer - Req. Specs Out of Hospital Transfer - Requested Specifics: Other Emergency Center ([facility]) <Angel Mccann - Last Filed: 08/06/22 19:55> Clinical Impression: Retroperitoneal bleeding, Kidney hematoma Disposition: OTHER INSTITUTION NOT DEFINED Condition: Stable Referrals: Devon Mattson MD [Primary Care Provider] - 1-2 days
[2022-08-06] MEDS ORDERED: SODIUM CHLORIDE 0.9% 500 ML 500 ML IV ONE (18:21)
[2022-08-06] MEDS ORDERED: ONDANSETRON 4 MG/2 ML VIAL IVP STA (18:21)
[2022-08-06] MEDS ORDERED: MORPHINE SULFATE 2 MG/ML SYRINGE IVP ONE (18:21)
[2022-08-06 18:30] LABS: Basophils % (A) 0 %; Eosinophils # (A) 0.3 k/uL (0-0.7); Eosinophils % (A) 3 %; Lymphocytes # (A) 0.5 k/uL (1.0-4.8); Lymphocytes % (A) 6 %; MCHC 33.2 g/dL (31.0-37.0); MCV 93.4 fL (80.0-100.0); Mean Platelet Volume 7.5; Monocytes # (A) 0.3 k/uL (0-1.0); Monocytes % (A) 4 %; Neutrophils % (A) 86 %; Platelet Count 265 k/uL (150-450); RBC 1.93 m/uL (4.30-5.90); RDW 13.9 % (11.5-15.5); WBC 8.1 k/uL (3.8-10.6)
[2022-08-06 18:52] LABS: Partial Thromboplastin Time 24.7 sec (22.0-30.0); Prothrombin Time 10.8 sec (9.0-12.0)
[2022-08-06 19:04] LABS: Albumin 2.7 g/dL (3.5-5.0); Calcium 7.5 mg/dL (8.4-10.2); Potassium 4.2 mmol/L (3.5-5.1); Total Bilirubin 0.4 mg/dL (0.2-1.3); Total Protein 5.3 g/dL (6.3-8.2)
--- NOTE | 2022-08-06 19:11 | CT ---
EXAMINATION TYPE: CT abdomen pelvis wo con DATE OF EXAM: 08/06/2022 COMPARISON: None HISTORY: Left side abdominal pain extending down to the groin. Stage 4 kidney failure. Kidney Biopsy done today at [facility] [place]. CT DLP: 986.5 mGycm Automated exposure control for dose reduction was used. Images obtained from the diaphragm to the floor the pelvis with no contrast. There is moderate right pleural effusion. There is small left pleural effusion. Heart is enlarged. Th ere is infiltrate and atelectasis at both lung bases. Liver and spleen and gallbladder appear intact. No evidence of pancreatic mass. The stomach is intact . There is no adrenal mass. There is large left-sided perinephric hematoma. Hemorrhage measures up to 3 cm in thickness. There is subcapsular hematoma as well. Left kidney is displaced anteriorly. Kidneys show no hydronephrosis. No retroperitoneal adenopathy. There is large hematoma extending along the l eft psoas muscle into the pelvis. Hematoma measures up to 5.5 cm in thickness. The bladder distends smoothly. There is some low density free fluid in the pelvis. There is small lynda unt of intraperitoneal fluid in the right paracolic gutter. No bowel obstruction. No free air. IMPRESSION: There is a large left sided retroperitoneal acute hemorrhage with perinephric hematoma and subcapsula r hematoma and displacement of the kidney anteriorly. Mild abdominal ascites. Infiltrates and atelectasis at the lung bases with pleural fluid that could be chronic congestive hea rt failure.
[2022-08-06 20:03] VITALS: RESP 15
[2022-08-06 20:17] VITALS: TEMP 97.1
[2022-08-06 20:38] VITALS: BP 167/77; PULSE 80
== END 2022-08-06 21:06 | disposition other institution (70) ==
LOC: EC 15:58
DX: R58 Hemorrhage, not elsewhere classified (principal); E10.22 Type 1 diabetes mellitus with diabetic chronic kidney disease; I12.9 Hypertensive chronic kidney disease with stage 1 through stage 4 chronic kidney disease, or unspecified chronic kidney disease; N18.4 Chronic kidney disease, stage 4 (severe); E78.5 Hyperlipidemia, unspecified; Z79.899 Other long term (current) drug therapy; Z87.891 Personal history of nicotine dependence
CPT/HCPCS: 36415; 86900; 86901; 80053; 83605; 83690; 85025; 85610; 85730; 86850; 86920; 74176; 99285; 96374; 96375; 96361; 36430; P9016; J2405; J2270

== ENCOUNTER 2023-02-21 11:50 | Emergency (ER) | payer BC ==
[2023-02-21 12:04] LABS: Glucose,Whole Blood 224 mg/dL (70-110)
[2023-02-21] MEDS ORDERED: ONDANSETRON 4 MG/2 ML VIAL IVP STA (12:54)
[2023-02-21] MEDS ORDERED: SODIUM CHLORIDE 0.9% 2,000 ML IV STA (12:54)
[2023-02-21] MEDS ORDERED: FAMOTIDINE 20 MG/2 ML VIAL IV STA (12:55)
--- NOTE | 2023-02-21 13:31 | ED ---
Recheck HPI - General Chief Complaint: Recheck/Abnormal Lab/Rx Stated Complaint: Abnormal Lab Time Seen by Provider: 02/21/23 12:41 Source: patient, RN notes reviewed Mode of arrival: ambulatory Limitations: no limitations - History of Present Illness Initial Comments: This is a 57-year-old male who presents to the emergency department for hyperglycemia and vomiting. A couple of weeks ago he was on vacation. His insulin pump broke and he had another one sent him. However, he was not able to have this hooked back up until earlier this week. His sugar had been reading "high" or ranging in the 400s-500s for several days. Also states that over the last 2 days, he has been unable to keep anything down. He is concerned about being dehydrated and or going into DKA. He did just start hemodialysis in July, and was supposed to have a session today. However, they are concerned about him having too much insulin today and did not want him to have dialysis. States that since being here today, his sugar has been better in the range of the 200s. However, he does continue to feel nauseous and vomit. Denies any fevers, chills, sore throat, cough, dyspnea, chest pain, palpitations, abdominal pain, diarrhea, back pain, or headaches. MD Complaint: other (Hyperglycemia) - Related Data Home Medications Medication Instructions Recorded Confirmed hydrALAZINE HCL [Apresoline] 100 mg PO TID 05/22/22 02/21/23 Atorvastatin [Lipitor] 20 mg PO HS 08/06/22 02/21/23 amLODIPine [Norvasc] 10 mg PO DAILY 08/06/22 02/21/23 Doxazosin [Cardura] 4 mg PO BID 02/21/23 02/21/23 HYDROcodone/APAP 5-325MG [[place] 1 tab PO Q6H PRN 02/21/23 02/21/23 5-325] INSULIN ASPART (NovoLOG) [NovoLOG See Protocol SQ ACHS 02/21/23 02/21/23 (formulary)] Insulin Aspart (For Pump) [NovoLOG 0.01 unit SQ-PUMP CONTINUOUS 02/21/23 02/21/23 (For Pump)] Torsemide [Demadex] 100 mg PO DAILY 02/21/23 02/21/23 Valsartan 160 mg PO DAILY 02/21/23 02/21/23 carvediloL [Coreg] 25 mg PO BID 02/21/23 02/21/23 Previous Rx's Medication Instructions Recorded cloNIDine HCL [Catapres] 0.2 mg PO TID #90 tab 11/05/20 Ondansetron Odt [Zofran Odt] 4 mg PO Q8HR PRN #15 tab 02/21/23 Allergies Allergy/AdvReac Type Severity Reaction Status Date / Time Iodinated Contrast Media Allergy Anaphylaxis Verified 02/21/23 14:02 Review of Systems ROS Statement: Those systems with pertinent positive or pertinent negative responses have been documented in the HPI. ROS Other: All systems not noted in ROS Statement are negative. Past Medical History Past Medical History: Diabetes Mellitus, Hyperlipidemia, Hypertension, Renal Disease Additional Past Medical History / Comment(s): IDDM type I on insulin pump, DKA, chronic kidney disease, bilateral lower extremity edema History of Any Multi-Drug Resistant Organisms: None Reported Past Surgical History: No Surgical Hx Reported Additional Past Surgical History / Comment(s): R knee arthroscopy, circumcism, HD cath in chest Past Anesthesia/Blood Transfusion Reactions: No Reported Reaction Past Psychological History: No Psychological Hx Reported Smoking Status: Former smoker Past Alcohol Use History: None Reported Past Drug Use History: None Reported - Past Family History Mother Family Medical History: COPD Father Family Medical History: No Reported History Additional Family Medical History / Comment(s): Mother is healthy. General Exam Limitations: no limitations General appearance: alert, in no apparent distress Head exam: Present: atraumatic, normocephalic, normal inspection Respiratory exam: Present: normal lung sounds bilaterally. Absent: respiratory distress, wheezes, rales, rhonchi, stridor Cardiovascular Exam: Present: regular rate, normal rhythm, normal heart sounds. Absent: systolic murmur, diastolic murmur, rubs, gallop, clicks Neurological exam: Present: alert, oriented X3, CN II-XII intact Psychiatric exam: Present: normal affect, normal mood Skin exam: Present: warm, dry, intact, normal color. Absent: rash Course Vital Signs 02/21/23 02/21/23 11:57 15:19 Temperature 98.1 F 98.7 F Pulse Rate 67 78 Respiratory 18 16 Rate Blood Pressure 148/85 136/78 O2 Sat by Pulse 97 99 Oximetry Medical Decision Making - Medical Decision Making This is a 57-year-old male who presents to the emergency department for elevated blood sugar, nausea, and vomiting. Was pt. sent in by a medical professional or institution? @ -No Did you speak to anyone other than the patient for history? @ -No Did you review nursing and triage notes? @ -Yes, and I agree, it is accurate with regards to the patient's symptoms. Were old charts reviewed? @ -No Differential Diagnosis? @ -Differential Nausea and Vomiting: Gastroenteritis, cholecystitis, appendicitis, pancreatitis, migraine, benign positional vertigo, food borne illness, pyelonephritis, irritable bowel syndrome, influenza, Covid, GERD, incarcerated hernia, intestinal obstruction, this is not meant to be an all-inclusive list. EKG interpreted by me (3pts min.)? @ -EKG interpreted by me demonstrating the following: Sinus rhythm. Ventricular rate 85 beats per minute, CT interval 120 ms, QRS duration 93 ms, QTC 403 ms. X-rays interpreted by me (1pt min.)? @ -Not obtained CT interpreted by me (1pt min.)? @ -Not obtained U/S interpreted by me (1pt. min.)? @ -Not obtained What testing was considered but not performed? (CT, X-rays, U/S, labs)? Why? @ -None What meds were considered but not given? Why? @ -None Did you discuss the management of the patient with other professionals? @ -No Did you reconcile home meds? @ -No Was smoking cessation discussed for >3mins.? @ -No Was critical care preformed (if so, how long)? @ -No Were there social determinants of health that impacted care today? How? (Homelessness, low income, unemployed, alcoholism, drug addiction, transportation, low edu. Level, literacy, decrease access to med. care, halfway, rehab)? @ -No Was there de-escalation of care discussed even if they declined? (Discuss DNR or withdrawal of care, Hospice)? @ -No What co-morbidities impacted this encounter? (DM, HTN, Smoking, COPD, CAD, Cancer, CVA, Hep., AIDS, mental health diagnosis, sleep apnea, morbid obesity)? @ -DM type 1, renal failure, HTN, HLD Was patient admitted / discharged? @ -Discharged. Lab work obtained revealing poor renal function, consistent with the patient's history of renal failure and missing dialysis today. He was acetone positive, however his pH was 7.48. His sugar was however significantly improved at a value of 178. Patient did not meet DKA criteria, it appeared as though he just needed his dialysis. He was given 2 L of IV fluids, Zofran, and Pepcid. He overall felt much better and was able to drink water without difficulty. I had planned on calling nephrology to see if the patient could still have dialysis today, however he called them himself and scheduled himself for dialysis at 6 AM tomorrow morning, and declined waiting for me to call in the emergency department. He said that he also wanted to avoid having dialysis today given that he had a lot of insulin earlier. Prescription for Zofran pr ovided with dosing instructions reviewed. He is advised to slowly advance diet as tolerated and remain well-hydrated. Patient will otherwise follow-up for his dialysis appointment tomorrow morning at 6 AM. Undiagnosed new problem with uncertain prognosis? @ -None Drug Therapy requiring intensive monitoring for toxicity (Heparin, Nitro, Insu manuel, Cardizem)? @ -None Were any procedures done? @ -None Diagnosis/symptom? @ -Nausea and vomiting due to hyperglycemia Acute, or Chronic, or Acute on Chronic? @ -Acute Uncomplicated (without systemic symptoms) or Complicated (systemic symptoms)? @ -Uncomplicated Side effects of treatment? @ -None Exacerbation, Progression, or Severe Exacerbation] @ -Not applicable Poses a threat to life or bodily function? @ -No Return precautions reviewed in depth, the patient is instructed to return to the emergency department with any new, worsening, or concerning symptoms. Patient verbalized understanding. This case was discussed in detail with the attending ED physician, Dr. Gibbs. Presentation, findings, and treatment plan discussed in detail as well. - Lab Data Result diagrams: 02/21/23 13:05 02/21/23 13:05 Lab Results 02/21/23 02/21/23 02/21/23 Range/Units 12:02 13:05 13:05 WBC 9.6 (3.8-10.6) k/uL RBC 3.56 L (4.30-5.90) m/uL Hgb 11.7 L (13.0-17.5) gm/dL Hct 34.8 L (39.0-53.0) % MCV 97.8 (80.0-100.0) fL MCH 32.9 (25.0-35.0) pg MCHC 33.7 (31.0-37.0) g/dL RDW 15.3 (11.5-15.5) % Plt Count 203 (150-450) k/uL MPV 7.7 Neutrophils % 79 % Lymphocytes % 10 % Monocytes % 7 % Eosinophils % 2 % Basophils % 0 % Neutrophils # 7.6 (1.3-7.7) k/uL Lymphocytes # 0.9 L (1.0-4.8) k/uL Monocytes # 0.7 (0-1.0) k/uL Eosinophils # 0.2 (0-0.7) k/uL Basophils # 0.0 (0-0.2) k/uL VBG pH (7.31-7.41) VBG pCO2 (37-51) mmHg VBG HCO3 (24-28) mmol/L Sodium (137-145) mmol/L Potassium (3.5-5.1) mmol/L Chloride (98-107) mmol/L Carbon Dioxide (22-30) mmol/L Anion Gap mmol/L BUN (9-20) mg/dL Creatinine (0.66-1.25) mg/dL Est GFR (CKD-EPI)AfAm (>60 ml/min/1.73 sqM) Est GFR (CKD-EPI)NonAf (>60 ml/min/1.73 sqM) Glucose (74-99) mg/dL POC Glucose (mg/dL) 224 H (70-110) mg/dL POC Glu [employer] Lexis Fernandez Plasma Lactic Acid [place] (0.7-2.0) mmol/L Calcium (8.4-10.2) mg/dL Phosphorus (2.5-4.5) mg/dL Magnesium (1.6-2.3) mg/dL Total Bilirubin (0.2-1.3) mg/dL AST (17-59) U/L ALT (4-49) U/L Alkaline Phosphatase (38-126) U/L Total Protein (6.3-8.2) g/dL Albumin (3.5-5.0) g/dL Urine Color Yellow Urine Appearance Clear (Clear) Urine pH 6.0 (5.0-8.0) Ur Specific [place] 1.013 (1.001-1.035) Urine Protein 3+ H (Negative) Urine Glucose (UA) 4+ H (Negative) Urine Ketones 1+ H (Negative) Urine Blood Negative (Negative) Urine Nitrite Negative (Negative) Urine Bilirubin Negative (Negative) Urine Urobilinogen <2.0 (<2.0) mg/dL Ur Leukocyte Esterase Negative (Negative) Urine RBC 1 (0-5) /hpf Urine WBC 2 (0-5) /hpf Ur Squamous Epith Cells 1 (0-4) /hpf Urine Bacteria Rare H (None) /hpf Hyaline Casts 10 H (0-2) /lpf Waxy Casts 3 (0) /lpf Urine Mucus Rare H (None) /hpf Acetone, Qual (Negative) 02/21/23 02/21/23 02/21/23 Range/Units 13:05 13:05 13:05 WBC (3.8-10.6) k/uL RBC (4.30-5.90) m/uL Hgb (13.0-17.5) gm/dL Hct (39.0-53.0) % MCV (80.0-100.0) fL MCH (25.0-35.0) pg MCHC (31.0-37.0) g/dL RDW (11.5-15.5) % Plt Count (150-450) k/uL MPV Neutrophils % % Lymphocytes % % Monocytes % % Eosinophils % % Basophils % % Neutrophils # (1.3-7.7) k/uL Lymphocytes # (1.0-4.8) k/uL Monocytes # (0-1.0) k/uL Eosinophils # (0-0.7) k/uL Basophils # (0-0.2) k/uL VBG pH 7.48 H (7.31-7.41) VBG pCO2 37 (37-51) mmHg VBG HCO3 28 (24-28) mmol/L Sodium 133 L (137-145) mmol/L Potassium 4.1 (3.5-5.1) mmol/L Chloride 93 L (98-107) mmol/L Carbon Dioxide 26 (22-30) mmol/L Anion Gap 14 mmol/L BUN 75 H (9-20) mg/dL Creatinine 8.60 H* (0.66-1.25) mg/dL Est GFR (CKD-EPI)AfAm 7 (>60 ml/min/1.73 sqM) Est GFR (CKD-EPI)NonAf 6 (>60 ml/min/1.73 sqM) Glucose 178 H (74-99) mg/dL POC Glucose (mg/dL) (70-110) mg/dL POC Glu [employer] ID Plasma Lactic Acid [place] 2.0 (0.7-2.0) mmol/L Calcium 8.5 (8.4-10.2) mg/dL Phosphorus 4.4 (2.5-4.5) mg/dL Magnesium 2.6 H (1.6-2.3) mg/dL Total Bilirubin 0.7 (0.2-1.3) mg/dL AST 22 (17-59) U/L ALT 23 (4-49) U/L Alkaline Phosphatase 90 (38-126) U/L Total Protein 6.7 (6.3-8.2) g/dL Albumin 3.8 (3.5-5.0) g/dL Urine Color Urine Appearance (Clear) Urine pH (5.0-8.0) Ur Specific [place] (1.001-1.035) Urine Protein (Negative) Urine Glucose (UA) (Negative) Urine Ketones (Negative) Urine Blood (Negative) Urine Nitrite (Negative) Urine Bilirubin (Negative) Urine Urobilinogen (<2.0) mg/dL Ur Leukocyte Esterase (Negative) Urine RBC (0-5) /hpf Urine WBC (0-5) /hpf Ur Squamous Epith Cells (0-4) /hpf Urine Bacteria (None) /hpf Hyaline Casts (0-2) /lpf Waxy Casts (0) /lpf Urine Mucus (None) /hpf Acetone, Qual Positive (Negative) Disposition Clinical Impression: Nausea and vomiting due to hyperglycemia, CKD (chronic kidney disease) Disposition: HOME SELF-CARE Instructions (If sedation given, give patient instructions): Acute Nausea and Vomiting (ED) Additional Instructions: Return to the emergency department with any new, worsening, or concerning symptoms. Take the Zofran up to every 8 hours as needed for nausea and vomiting. Slowly advance your diet as tolerated and remain well-hydrated. Make sure that you attend your dialysis appointment at 6 AM tomorrow. Follow up with your primary care provider in 1-2 days. Prescriptions: Ondansetron Odt [Zofran Odt] 4 mg PO Q8HR PRN #15 tab PRN Reason: Nausea And Vomiting Is patient prescribed a controlled substance at d/c from ED?: No Referrals: Devon Mattson MD [Primary Care Provider] - 1-2 days
[2023-02-21 13:39] LABS: VBG PH 7.48 (7.31-7.41)
[2023-02-21 13:42] LABS: Basophils % (A) 0 %; Eosinophils # (A) 0.2 k/uL (0-0.7); Eosinophils % (A) 2 %; HCT 34.8 % (39.0-53.0); HGB 11.7 gm/dL (13.0-17.5); Lymphocytes # (A) 0.9 k/uL (1.0-4.8); Lymphocytes % (A) 10 %; MCH 32.9 pg (25.0-35.0); MCHC 33.7 g/dL (31.0-37.0); MCV 97.8 fL (80.0-100.0); Mean Platelet Volume 7.7; Monocytes # (A) 0.7 k/uL (0-1.0); Monocytes % (A) 7 %; Neutrophils # (A) 7.6 k/uL (1.3-7.7); Neutrophils % (A) 79 %; Platelet Count 203 k/uL (150-450); RBC 3.56 m/uL (4.30-5.90); RDW 15.3 % (11.5-15.5); WBC 9.6 k/uL (3.8-10.6)
[2023-02-21 13:47] LABS: Appearance,Urine Clear (Clear); Bacteria,Urine Rare /hpf; Bilirubin,Urine Negative (Negative); Blood,Urine Negative (Negative); Color,Urine Yellow; Glucose,Urine (UA) 4+ (Negative); Hyaline Casts,Urine 10 /lpf (0-2); Ketones,Urine 1+ (Negative); Leukocyte Esterase,Urine Negative (Negative); Mucus,Urine Rare /hpf; Nitrite,Urine Negative (Negative); Protein,Urine 3+ (Negative); RBC,Urine 1 /hpf (0-5); Specific Gravity,Urine 1.013 (1.001-1.035); Squamous Epithelial Cell,Urine 1 /hpf (0-4); Urobilinogen,Urine <2.0 mg/dL (<2.0); WBC,Urine 2 /hpf (0-5); Waxy Casts,Urine 3 /lpf (0)
[2023-02-21 13:48] LABS: Potassium 4.1 mmol/L (3.5-5.1)
[2023-02-21 13:49] LABS: ALT 23 U/L (4-49); AST 22 U/L (17-59); African American GFR (CKD) 7 (>60 ml/min/1.73 sqM); Albumin 3.8 g/dL (3.5-5.0); Alkaline Phosphatase 90 U/L (38-126); Anion Gap 14 mmol/L; Blood Urea Nitrogen 75 mg/dL (9-20); Calcium 8.5 mg/dL (8.4-10.2); Carbon Dioxide 26 mmol/L (22-30); Chloride 93 mmol/L (98-107); Glucose 178 mg/dL (74-99); Magnesium 2.6 mg/dL (1.6-2.3); Non-African American GFR(CKD) 6 (>60 ml/min/1.73 sqM); Phosphorus 4.4 mg/dL (2.5-4.5); Sodium 133 mmol/L (137-145); Total Bilirubin 0.7 mg/dL (0.2-1.3); Total Protein 6.7 g/dL (6.3-8.2)
[2023-02-21] MEDS ORDERED: ONDANSETRON 4 MG ODT STARTER PACK 2 TAB BTL PO STA (14:57)
[2023-02-21 15:20] VITALS: BP 136/78; PULSE 78; RESP 16; TEMP 98.7
== END 2023-02-21 15:32 | disposition home or self-care (01) ==
LOC: EC 11:50
DX: E10.65 Type 1 diabetes mellitus with hyperglycemia (principal); R11.2 Nausea with vomiting, unspecified; E10.22 Type 1 diabetes mellitus with diabetic chronic kidney disease; I12.9 Hypertensive chronic kidney disease with stage 1 through stage 4 chronic kidney disease, or unspecified chronic kidney disease; N18.9 Chronic kidney disease, unspecified; E78.5 Hyperlipidemia, unspecified; Z87.891 Personal history of nicotine dependence; Z91.041 Radiographic dye allergy status; Z79.4 Long term (current) use of insulin; Z79.899 Other long term (current) drug therapy
CPT/HCPCS: 36415; 80053; 82803; 82009; 83605; 83735; 84100; 85025; 81001; 99284; 96374; 96375; 96361 ×2; J2405; S0119

== ENCOUNTER 2023-05-09 22:26 | Observation (INO) | payer BC ==
--- NOTE | 2023-05-09 23:16 | ED ---
General Adult HPI - General Chief complaint: Dizziness Stated complaint: Arm and shoulder pain Time Seen by Provider: 05/09/23 22:35 Source: patient, family Mode of arrival: ambulatory Limitations: no limitations - History of Present Illness Initial comments: 57-year-old male with past medical history of end-stage renal disease on peritoneal dialysis presents to the emergency department with report that he does not feel well. He states for the past couple of weeks he has been fatigued and nauseated. Last night he began having bilateral arm tightness with some associated shortness of breath and dizziness. Patient also reports to nausea and does have an episode of vomiting in the emergency department. He denies any chest pain. No abdominal pain. No swelling. No fevers. States that he was recently started on peritoneal dialysis from hemodialysis. Still has catheter in his right chest wall. He denies any abdominal pain. No concern of infection from his catheter site. Follows with Dr. Elliott. Denies any missed sessions of his dialysis. Denies any cardiac history. No other alleviating, precipitating or modifying factors - Related Data Home Medications Medication Instructions Recorded Confirmed hydrALAZINE HCL [Apresoline] 100 mg PO TID 05/22/22 02/21/23 Atorvastatin [Lipitor] 20 mg PO HS 08/06/22 02/21/23 amLODIPine [Norvasc] 10 mg PO DAILY 08/06/22 02/21/23 Doxazosin [Cardura] 4 mg PO BID 02/21/23 02/21/23 HYDROcodone/APAP 5-325MG [[place] 1 tab PO Q6H PRN 02/21/23 02/21/23 5-325] INSULIN ASPART (NovoLOG) [NovoLOG See Protocol SQ ACHS 02/21/23 02/21/23 (formulary)] Insulin Aspart (For Pump) [NovoLOG 0.01 unit SQ-PUMP CONTINUOUS 02/21/23 02/21/23 (For Pump)] Torsemide [Demadex] 100 mg PO DAILY 02/21/23 02/21/23 Valsartan 160 mg PO DAILY 02/21/23 02/21/23 carvediloL [Coreg] 25 mg PO BID 02/21/23 02/21/23 Previous Rx's Medication Instructions Recorded cloNIDine HCL [Catapres] 0.2 mg PO TID #90 tab 11/05/20 Ondansetron Odt [Zofran Odt] 4 mg PO Q8HR PRN #15 tab 02/21/23 Allergies Allergy/AdvReac Type Severity Reaction Status Date / Time Iodinated Contrast Media Allergy Anaphylaxis Verified 02/21/23 14:02 Review of Systems ROS Statement: Those systems with pertinent positive or pertinent negative responses have been documented in the HPI. ROS Other: All systems not noted in ROS Statement are negative. Past Medical History Past Medical History: Diabetes Mellitus, Hyperlipidemia, Hypertension, Renal Disease Additional Past Medical History / Comment(s): IDDM type I on insulin pump, DKA, chronic kidney disease, bilateral lower extremity edema. peritoneal dialysis History of Any Multi-Drug Resistant Organisms: None Reported Past Surgical History: No Surgical Hx Reported Additional Past Surgical History / Comment(s): R knee arthroscopy, circumcism, HD cath in chest Past Anesthesia/Blood Transfusion Reactions: No Reported Reaction Past Psychological History: No Psychological Hx Reported Smoking Status: Former smoker Past Alcohol Use History: None Reported Past Drug Use History: None Reported - Past Family History Mother Family Medical History: COPD Father Family Medical History: No Reported History Additional Family Medical History / Comment(s): Mother is healthy. General Exam Limitations: no limitations General appearance: alert, in no apparent distress Head exam: Present: atraumatic, normocephalic, normal inspection Eye exam: Present: normal appearance, PERRL, EOMI. Absent: scleral icterus, co njunctival injection, periorbital swelling ENT exam: Present: normal exam, mucous membranes moist Neck exam: Present: normal inspection. Absent: tenderness, meningismus, lymphadenopathy Respiratory exam: Present: normal lung sounds bilaterally. Absent: respiratory distress, wheezes, rales, rhonchi, stridor Cardiovascular Exam: Present: regular rate, normal rhythm, normal heart sounds. Absent: systolic murmur, diastolic murmur, rubs, gallop, clicks GI/Abdominal exam: Present: soft, normal bowel sounds, other (Catheter left abdomen). Absent: distended, tenderness, guarding, rebound, rigid Extremities exam: Present: normal inspection, full ROM, normal capillary refill. Absent: tenderness, pedal edema, joint swelling, calf tenderness Back exam: Present: normal inspection Neurological exam: Present: alert, oriented X3, CN II-XII intact Psychiatric exam: Present: normal affect, normal mood Skin exam: Present: warm, dry, intact, normal color. Absent: rash Course Vital Signs 05/09/23 05/09/23 05/10/23 22:30 23:00 00:00 Temperature 97.8 F Pulse Rate 60 58 L 65 Respiratory 16 18 16 Rate Blood Pressure 209/86 208/100 213/94 O2 Sat by Pulse 95 95 96 Oximetry 05/10/23 05/10/23 05/10/23 01:00 04:00 06:30 Temperature Pulse Rate 64 68 65 Respiratory 17 16 15 Rate Blood Pressure 175/79 186/79 212/96 O2 Sat by Pulse 96 95 Oximetry Medical Decision Making - Medical Decision Making Was pt. sent in by a medical professional or institution (, PA, CLIENT SERVICES COORDINATOR, urgent care, hospital, or residential...) When possible be specific @ -No Did you speak to anyone other than the patient for history (EMS, parent, family, police, friend...)? What history was obtained from this source @ -No Did you review nursing and triage notes (agree or disagree)? Why? @ -I reviewed and agree with nursing and triage notes Were old charts reviewed (outside hosp., previous admission, EMS record, old EKG, old radiological studies, urgent care reports/EKG's, residential records)? Report findings @ -No old charts were reviewed Differential Diagnosis (chest pain, altered mental status, abdominal pain women, abdominal pain men, vaginal bleeding, weakness, fever, dyspnea, syncope, headache, dizziness, GI bleed, back pain, seizure, CVA, palpatations, mental health, musculoskeletal)? @ -Differential Weakness: Hypoglycemia, shock, sepsis, hyponatremia, anemia, infection, IA, ETOH, adverse medicine reaction, overdose, stroke, this is not meant to be an all-inclusive list. EKG interpreted by me (3pts min.). @ -Yes and demonstrates sinus bradycardia with a rate of 58. [place] interval 172. QRS 118. QTC of 391. No acute ST segment elevations or depressions X-rays interpreted by me (1pt min.). @ -Yes and demonstrates no acute intrathoracic process CT interpreted by me (1pt min.). @ -None done U/S interpreted by me (1pt. min.). @ -None done What testing was considered but not performed or refused? (CT, X-rays, U/S, labs)? Why? @ -None What meds were considered but not given or refused? Why? @ -None Did you discuss the management of the patient with other professionals (professionals i.e. , PA, CLIENT SERVICES COORDINATOR, lab, RT, psych nurse, social services analyst, petal cutter, teacher, sheriff's officer, skilled nursing case manager)? Give summary @ -I paged Dr. Shaffer x3 to request orders for peritoneal dialysis however am awaiting callback Was smoking cessation discussed for >3mins.? @ -No Was critical care preformed (if so, how long)? @ -No Were there social determinants of health that impacted care today? How? (Homelessness, low income, unemployed, alcoholism, drug addiction, transport ation, low edu. Level, literacy, decrease access to med. care, senior care, rehab)? @ -No Was there de-escalation of care discussed even if they declined (Discuss DNR or withdrawal of care, Hospice)? DNR status @ -No What co-morbidities impacted this encounter? (DM, HTN, Smoking, COPD, CAD, Cancer, CVA, ARF, Chemo, Hep., AIDS, mental health diagnosis, sleep apnea, morbid obesity)? @ -Diabetes mellitus, end-stage renal disease on peritoneal dialysis Was patient admitted / discharged? Hospital course, mention meds given and route, prescriptions, significant lab abnormalities, going to OR and other pertinent info. @ -Upon arrival patient is placed into room 1. Thorough history and physical exam was performed. IV access is established and laboratory studies were co nducted. Chest x-rays performed. Patient was given Zofran for his vomiting. Upon review of the results they are discuss with the patient, did recommend admission for serial troponins. I did page Dr. Shaffer. Awaiting callback for peritoneal dialysis orders. Patient was agreeable to admission. Spoke with Dr. Cho for admission. Undiagnosed new problem with uncertain prognosis? @ -yes Drug Therapy requiring intensive monitoring for toxicity (Heparin, Nitro, Insulin, Cardizem)? @ -No Were any procedures done? @ -No Diagnosis/symptom? @ -Acute bilateral arm pain/chest pressure, acute nausea vomiting, end-stage renal disease on peritoneal dialysis Acute, or Chronic, or Acute on Chronic? @ -acute Uncomplicated (without systemic symptoms) or Complicated (systemic symptoms)? @ -complicated Side effects of treatment? @ -No Exacerbation, Progression, or Severe Exacerbation? @ -No Poses a threat to life or bodily function? How? (Chest pain, USA, IA, pneumonia, PE, COPD, DKA, ARF, appy, cholecystitis, CVA, Diverticulitis, Homicidal, Suicidal, threat to staff... and all critical care pts) @ -No - Lab Data Result diagrams: 05/09/23 23:06 05/09/23 23:06 Lab Results 05/09/23 05/09/23 05/09/23 Range/Units 23:06 23:06 23:06 WBC 7.3 (3.8-10.6) k/uL RBC 3.21 L (4.30-5.90) m/uL Hgb 10.9 L (13.0-17.5) gm/dL Hct 31.6 L (39.0-53.0) % MCV 98.4 (80.0-100.0) fL MCH 33.9 (25.0-35.0) pg MCHC 34.5 (31.0-37.0) g/dL RDW 12.9 (11.5-15.5) % Plt Count 158 (150-450) k/uL MPV 8.0 Neutrophils % (Manual) 37 % Lymphocytes % (Manual) 16 % Monocytes % (Manual) 9 % Eosinophils % (Manual) 38 % Neutrophils # (Manual) 2.70 (1.3-7.7) k/uL Lymphocytes # (Manual) 1.17 (1.0-4.8) k/uL Monocytes # (Manual) 0.66 (0-1.0) k/uL Eosinophils # (Manual) 2.77 H (0-0.7) k/uL Nucleated RBCs 0 (0-0) /100 WBC PT 10.6 (10.0-12.5) sec INR 1.0 (<1.2) Sodium 129 L (137-145) mmol/L Potassium 5.4 H (3.5-5.1) mmol/L Chloride 89 L (98-107) mmol/L Carbon Dioxide 28 (22-30) mmol/L Anion Gap 12 mmol/L BUN 83 H (9-20) mg/dL Creatinine 15.15 H* (0.66-1.25) mg/dL Est GFR (CKD-EPI)AfAm 4 (>60 ml/min/1.73 sqM) Est GFR (CKD-EPI)NonAf 3 (>60 ml/min/1.73 sqM) Glucose 90 (74-99) mg/dL Plasma Lactic Acid Howard (0.7-2.0) mmol/L Calcium 12.6 H (8.4-10.2) mg/dL Total Bilirubin 0.4 (0.2-1.3) mg/dL AST 21 (17-59) U/L ALT 14 (4-49) U/L Alkaline Phosphatase 64 (38-126) U/L Troponin I (0.000-0.034) ng/mL NT-Pro-B Natriuret Pep 19663 pg/mL Total Protein 6.0 L (6.3-8.2) g/dL Albumin 3.5 (3.5-5.0) g/dL 05/09/23 05/09/23 Range/Units 23:06 23:06 WBC (3.8-10.6) k/uL RBC (4.30-5.90) m/uL Hgb (13.0-17.5) gm/dL Hct (39.0-53.0) % MCV (80.0-100.0) fL MCH (25.0-35.0) pg MCHC (31.0-37.0) g/dL RDW (11.5-15.5) % Plt Count (150-450) k/uL MPV Neutrophils % (Manual) % Lymphocytes % (Manual) % Monocytes % (Manual) % Eosinophils % (Manual) % Neutrophils # (Manual) (1.3-7.7) k/uL Lymphocytes # (Manual) (1.0-4.8) k/uL Monocytes # (Manual) (0-1.0) k/uL Eosinophils # (Manual) (0-0.7) k/uL Nucleated RBCs (0-0) /100 WBC PT (10.0-12.5) sec INR (<1.2) Sodium (137-145) mmol/L Potassium (3.5-5.1) mmol/L Chloride (98-107) mmol/L Carbon Dioxide (22-30) mmol/L Anion Gap mmol/L BUN (9-20) mg/dL Creatinine (0.66-1.25) mg/dL Est GFR (CKD-EPI)AfAm (>60 ml/min/1.73 sqM) Est GFR (CKD-EPI)NonAf (>60 ml/min/1.73 sqM) Glucose (74-99) mg/dL Plasma Lactic Acid Howard 0.5 L (0.7-2.0) mmol/L Calcium (8.4-10.2) mg/dL Total Bilirubin (0.2-1.3) mg/dL AST (17-59) U/L ALT (4-49) U/L Alkaline Phosphatase (38-126) U/L Troponin I 0.050 H* (0.000-0.034) ng/mL NT-Pro-B Natriuret Pep pg/mL Total Protein (6.3-8.2) g/dL Albumin (3.5-5.0) g/dL Disposition Clinical Impression: Vomiting, Shortness of breath, ESRD (end stage renal disease) Disposition: ADMITTED IP TO THIS [facility] Condition: Stable Is patient prescribed a controlled substance at d/c from ED?: No Time of Disposition: 01:13 Decision to Admit Reason: Admit from EC Decision Date: 05/10/23 Decision Time: 01:13
[2023-05-09 23:33] LABS: ALT 14 U/L (4-49); AST 21 U/L (17-59); Albumin 3.5 g/dL (3.5-5.0); Alkaline Phosphatase 64 U/L (38-126); Anion Gap 12 mmol/L; Blood Urea Nitrogen 83 mg/dL (9-20); Calcium 12.6 mg/dL (8.4-10.2); Carbon Dioxide 28 mmol/L (22-30); Chloride 89 mmol/L (98-107); Glucose 90 mg/dL (74-99); Potassium 5.4 mmol/L (3.5-5.1); Sodium 129 mmol/L (137-145); Total Bilirubin 0.4 mg/dL (0.2-1.3)
[2023-05-09 23:37] LABS: HCT 31.6 % (39.0-53.0); HGB 10.9 gm/dL (13.0-17.5); MCH 33.9 pg (25.0-35.0); MCHC 34.5 g/dL (31.0-37.0); MCV 98.4 fL (80.0-100.0); Platelet Count 158 k/uL (150-450); RBC 3.21 m/uL (4.30-5.90); RDW 12.9 % (11.5-15.5); WBC 7.3 k/uL (3.8-10.6)
[2023-05-09 23:39] LABS: African American GFR (CKD) 4 (>60 ml/min/1.73 sqM); Non-African American GFR(CKD) 3 (>60 ml/min/1.73 sqM)
[2023-05-09 23:40] LABS: NT-Pro-B-Type Natriuretic Pept 28400 pg/mL; Prothrombin Time 10.6 sec (10.0-12.5)
[2023-05-10 00:17] LABS: Eosinophils # (M) 2.77 k/uL (0-0.7); Lymphocytes # (M) 1.17 k/uL (1.0-4.8); Monocytes # (M) 0.66 k/uL (0-1.0); Neutrophils % (M) 37 %; Nucleated Red Blood Cells 0 /100 WBC (0-0); Total Cells Counted 100
[2023-05-10] MEDS ORDERED: ONDANSETRON 4 MG/2 ML VIAL IVP STA (01:04)
[2023-05-10] MEDS ORDERED: NALOXONE 0.4 MG/ML 1 ML VIAL IV PRN (01:13)
[2023-05-10] MEDS ORDERED: hydrALAZINE HCL 50 MG TAB PO STA (01:20)
[2023-05-10] MEDS ORDERED: cloNIDine HCL 0.2 MG TAB PO STA ×2 (01:20→12:53)
--- NOTE | 2023-05-10 01:52 | XR ---
EXAM: XR Chest, 2 Views CLINICAL HISTORY: ITS.REASON XR Reason: sob TECHNIQUE: Frontal and lateral views of the chest. COMPARISON: No relevant prior studies available. FINDINGS: Lungs: No consolidation or mass. Pleural space: No effusion. Heart: Mild cardiomegaly. Bones/joints: No acute findings. IMPRESSION: No acute cardiopulmonary process.
[2023-05-10] MEDS ORDERED: ONDANSETRON 4 MG/2 ML VIAL IVP PRN (05:54)
--- NOTE | 2023-05-10 06:02 | P.HPIM ---
History of Present Illness H&P Date: 05/10/23 Chief Complaint: Repeated nausea vomiting 57-year-old male with diabetes mellitus, end-stage renal disease currently on peritoneal dialysis, refractory hypertension Patient coming in reporting couple week history of progressive generalized weakness, chills. Over the past couple days he's been having repeated vomiting nonbilious nonbloody feeling very nauseous. Denies any abdominal pain. Denies any chest pain denies any trouble breathing denies any upper respiratory i nfection symptoms denies any cough runny nose sore throat denies any diarrhea or GI bleeding. Denies any skin rashes denies any changes in his medications. Patient still makes little urine denies any dysuria denies any hematuria. Patient used to be on hemodialysis through right permacath since July of this year however he was switched to peritoneal dialysis about 2 weeks ago. Patient denies tobacco smoking admits to marijuana denies any heavy alcohol Patient denies any recent travel he denies any history of strokes denies any history of blood clots denies any recent hospital stay. Denies any known sick contacts. review of systems Pertinent positives as noted in HPI. All other systems were reviewed and are negative on exam Constitutional: No acute distress, conversant, pleasant Eyes: Anicteric sclerae, moist conjunctiva, Pupils equal round reactive to light ENMT: NC/AT Oropharynx clear, no erythema, or exudates Neck: Supple, no masses, or JVD No carotid bruits No thyromegaly Lungs: Clear to auscultation Clear to percussion Normal respiratory effort, no accessory muscle use Cardiovascular: Heart regular in rate and rhythm, No murmurs, gallops, or rubs No peripheral edema Abdominal: Soft Nontender, no guarding, rebound or rigidity Abdomen moving with respiration Normoactive bowel sounds No hepatomegaly, No splenomegaly No palpable mass No abdominal wall hernia noted Skin: Skin surrounding area of right permacath the chest is unremarkable no erythema no warmth to the touch no tenderness no drainage. Skin surrounding peritoneal dialysis looks unremarkable no drainage no induration no tenderness n o warmth to the touch Extremities: No digital cyanosis No clubbing Pedal pulses intact and symmetrical Radial pulses intact and symmetrical No calf tenderness Psychiatric: Alert and oriented to person, place and time Appropriate affect fair judgement Neuro Muscles Strength 5/5 in all 4 extremities Sensation to light touch grossly present throughout Cranial nerves II-XII grossly intact Lymphatics: no palpable cervical or supraclavicular lymph nodes Assessment and plan 57-year-old male with end stage renal disease currently on peritoneal dialysis coming in with repeated nausea vomiting over the past couple days I discussed the case with the ED doctor and accepted the admission for suspected symptomatic uremia resulting in repeated nausea and vomiting awaiting nephrology evaluation possibly patient might need session of hemodialysis with anticipated length of stay more than 2 midnights End stage renal disease on peritoneal dialysis Concerns regarding effectiveness of peritoneal dialysis at home Patient seems to have early signs and symptoms of uremia with repeated nausea vomiting and decreased appetite BUN 83 creatinine 15 Await further nephrology recommendations, patient might require session of hemodialysis Calcium level XII.6 patient is not on any binders Sodium 129 potassium 5.4 no EKG changes indicative of hyperkalemia we'll cont inue to monitor Refractory hypertension with accelerated hypertension Patient claims to be compliant with medications continue with home medications amlodipine, carvedilol, clonidine, Cardura, hydralazine, torsemide, and valsartan Diabetes mellitus Continue with insulin pump Blood sugar check before meals and at bedtime Chest x-ray showed no acute cardiopulmonary process Full code DVT prophylaxis heparin subcu 3 times a day Past Medical History Past Medical History: Diabetes Mellitus, Hyperlipidemia, Hypertension, Renal Disease Additional Past Medical History / Comment(s): IDDM type I on insulin pump, DKA, chronic kidney disease, bilateral lower extremity edema. peritoneal dialysis History of Any Multi-Drug Resistant Organisms: None Reported Past Surgical History: No Surgical Hx Reported Additional Past Surgical History / Comment(s): R knee arthroscopy, circumcism, HD cath in chest Past Anesthesia/Blood Transfusion Reactions: No Reported Reaction Past Psychological History: No Psychological Hx Reported Smoking Status: Former smoker Past Alcohol Use History: None Reported Past Drug Use History: None Reported - Past Family History Mother Family Medical History: COPD Father Family Medical History: No Reported History Additional Family Medical History / Comment(s): Mother is healthy. Medications and Allergies Home Medications Medication Instructions Recorded Confirmed Type cloNIDine HCL [Catapres] 0.2 mg PO TID #90 tab 11/05/20 02/21/23 Rx hydrALAZINE HCL [Apresoline] 100 mg PO TID 05/22/22 02/21/23 History Atorvastatin [Lipitor] 20 mg PO HS 08/06/22 02/21/23 History amLODIPine [Norvasc] 10 mg PO DAILY 08/06/22 02/21/23 History Doxazosin [Cardura] 4 mg PO BID 02/21/23 02/21/23 History HYDROcodone/APAP 5-325MG [[place] 1 tab PO Q6H PRN 02/21/23 02/21/23 History 5-325] INSULIN ASPART (NovoLOG) [NovoLOG See Protocol SQ ACHS 02/21/23 02/21/23 History (formulary)] Insulin Aspart (For Pump) [NovoLOG 0.01 unit SQ-PUMP CONTINUOUS 02/21/23 02/21/23 History (For Pump)] Ondansetron Odt [Zofran Odt] 4 mg PO Q8HR PRN #15 tab 02/21/23 Rx Torsemide [Demadex] 100 mg PO DAILY 02/21/23 02/21/23 History Valsartan 160 mg PO DAILY 02/21/23 02/21/23 History carvediloL [Coreg] 25 mg PO BID 02/21/23 02/21/23 History Allergies Allergy/AdvReac Type Severity Reaction Status Date / Time Iodinated Contrast Media Allergy Anaphylaxis Verified 02/21/23 14:02 Physical Exam Vitals: Vital Signs Temp Pulse Resp BP Pulse Ox 05/10/23 01:00 64 17 175/79 96 05/10/23 00:00 65 16 213/94 96 05/09/23 23:00 58 L 18 208/100 95 05/09/23 22:30 97.8 F 60 16 209/86 95 Intake and Output 05/09/23 05/09/23 05/10/23 14:59 22:59 06:59 Other: Weight 87 kg Results CBC & Chem 7: 05/09/23 23:06 05/09/23 23:06 Labs: Abnormal Lab Results - Last 24 Hours (Table) 05/09/23 05/09/23 05/09/23 Range/Units 23:06 23:06 23:06 RBC 3.21 L (4.30-5.90) m/uL Hgb 10.9 L (13.0-17.5) gm/dL Hct 31.6 L (39.0-53.0) % Eosinophils # (Manual) 2.77 H (0-0.7) k/uL Sodium 129 L (137-145) mmol/L Potassium 5.4 H (3.5-5.1) mmol/L Chloride 89 L (98-107) mmol/L BUN 83 H (9-20) mg/dL Creatinine 15.15 H* (0.66-1.25) mg/dL Plasma Lactic Acid Howard 0.5 L (0.7-2.0) mmol/L Calcium 12.6 H (8.4-10.2) mg/dL Troponin I (0.000-0.034) ng/mL Total Protein 6.0 L (6.3-8.2) g/dL 05/09/23 Range/Units 23:06 RBC (4.30-5.90) m/uL Hgb (13.0-17.5) gm/dL Hct (39.0-53.0) % Eosinophils # (Manual) (0-0.7) k/uL Sodium (137-145) mmol/L Potassium (3.5-5.1) mmol/L Chloride (98-107) mmol/L BUN (9-20) mg/dL Creatinine (0.66-1.25) mg/dL Plasma Lactic Acid Howard (0.7-2.0) mmol/L Calcium (8.4-10.2) mg/dL Troponin I 0.050 H* (0.000-0.034) ng/mL Total Protein (6.3-8.2) g/dL
[2023-05-10] MEDS ORDERED: DEXTROSE 50% SYRINGE 50 ML IVP PRN ×2 (06:04)
[2023-05-10] MEDS ORDERED: INSPUCOR MISCELLANE PRN (06:16)
[2023-05-10] MEDS ORDERED: INSULIN ASPART (NovoLOG) 100 UNIT/ML VIAL SQ PRN (06:16)
[2023-05-10] MEDS: Insulin Aspart (For Pump) 100 UNIT/ML VIAL SQ-PUMP SCH (06:43)
[2023-05-10] MEDS: HYDROcodone/APAP 5-325MG 1 EACH TAB PO PRN ×2 (06:48→12:55)
[2023-05-10] MEDS: INSULIN PUMP MEAL BOLUS 1 UNIT MISC MISCELLANE SCH ×4 (08:11→20:40)
[2023-05-10] MEDS: hydrALAZINE HCL 50 MG TAB PO SCH ×3 (08:32→21:28)
[2023-05-10] MEDS: amLODIPine 10 MG TAB PO SCH (08:33)
[2023-05-10] MEDS: cloNIDine HCL 0.2 MG TAB PO SCH ×3 (08:34→21:28)
[2023-05-10] MEDS: DOXAZOSIN 4 MG TAB PO SCH ×2 (08:34→20:41)
[2023-05-10] MEDS: carvediloL 12.5 MG TAB PO SCH ×2 (08:34→20:41)
[2023-05-10] MEDS: HEPARIN SODIUM,PORCINE 5,000 UNIT/ML 1 ML VIAL SQ SCH ×3 (08:35→23:17)
[2023-05-10] MEDS: VALSARTAN 160 MG TAB PO SCH (10:06)
[2023-05-10] MEDS: TORSEMIDE 20 MG TAB PO SCH (10:06)
--- NOTE | 2023-05-10 10:41 | P.NPCON ---
History of Present Illness - Reason for Consult end stage renal disease - History of Present Illness Patient is a 57-year-old male with end-stage renal disease recently started on peritoneal dialysis. Patient finished his training about 2 weeks ago. Patient states that recently the prescription was changed to increase dialysis. He states that he has not been feeling well and has been quite stressed out about doing the exchanges. Patient still has right IJ permacath. Blood pressure has been elevated with systolic above 200mmHg. Patient has been complaining of nausea, vomiting and decreased oral intake. Serum creatinine was elevated at 15.1. Potassium was 5.4. Calcium was elevated at 12.6. No history of fever chills diarrhea or abdominal pain. Fluid has been clear according to the patient. Review of Systems As per HPI Past Medical History Past Medical History: Diabetes Mellitus, Hyperlipidemia, Hypertension, Renal Disease Additional Past Medical History / Comment(s): IDDM type I on insulin pump, DKA, chronic kidney disease, bilateral lower extremity edema. peritoneal dialysis History of Any Multi-Drug Resistant Organisms: None Reported Past Surgical History: No Surgical Hx Reported Additional Past Surgical History / Comment(s): R knee arthroscopy, circumcism, HD cath in chest Past Anesthesia/Blood Transfusion Reactions: No Reported Reaction Past Psychological History: No Psychological Hx Reported Smoking Status: Former smoker Past Alcohol Use History: None Reported Past Drug Use History: None Reported - Past Family History Mother Family Medical History: COPD Father Family Medical History: No Reported History Additional Family Medical History / Comment(s): Mother is healthy. Medications and Allergies Home Medications Medication Instructions Recorded Confirmed Type cloNIDine HCL [Catapres] 0.2 mg PO TID #90 tab 11/05/20 02/21/23 Rx hydrALAZINE HCL [Apresoline] 100 mg PO TID 05/22/22 02/21/23 History Atorvastatin [Lipitor] 20 mg PO HS 08/06/22 02/21/23 History amLODIPine [Norvasc] 10 mg PO DAILY 08/06/22 02/21/23 History Doxazosin [Cardura] 4 mg PO BID 02/21/23 02/21/23 History HYDROcodone/APAP 5-325MG [Vincent 1 tab PO Q6H PRN 02/21/23 02/21/23 History 5-325] INSULIN ASPART (NovoLOG) [NovoLOG See Protocol SQ ACHS 02/21/23 02/21/23 History (formulary)] Insulin Aspart (For Pump) [NovoLOG 0.01 unit SQ-PUMP CONTINUOUS 02/21/23 02/21/23 History (For Pump)] Ondansetron Odt [Zofran Odt] 4 mg PO Q8HR PRN #15 tab 02/21/23 Rx Torsemide [Demadex] 100 mg PO DAILY 02/21/23 02/21/23 History Valsartan 160 mg PO DAILY 02/21/23 02/21/23 History carvediloL [Coreg] 25 mg PO BID 02/21/23 02/21/23 History Allergies Allergy/AdvReac Type Severity Reaction Status Date / Time Iodinated Contrast Media Allergy Anaphylaxis Verified 02/21/23 14:02 Physical Exam Vitals: Vital Signs Temp Pulse Resp BP Pulse Ox 05/10/23 08:27 98.1 F 64 18 201/100 94 L 05/10/23 06:30 65 15 212/96 95 05/10/23 04:00 68 16 186/79 05/10/23 01:00 64 17 175/79 96 05/10/23 00:00 65 16 213/94 96 05/09/23 23:00 58 L 18 208/100 95 05/09/23 22:30 97.8 F 60 16 209/86 95 Intake and Output 05/09/23 05/10/23 05/10/23 22:59 06:59 14:59 Other: Weight 87 kg Patient is awake, comfortable, no acute distress Alert oriented 3 Examination of the heart S1 and S2 Examination of the lungs bilateral breath sounds are heard Abdomen is soft nontender Examination lower extremities shows no significant edema MEDIA RELATIONS MANAGER exam grossly intact Results - Lab Results Most recent lab results Calcium 12.6 mg/dL (8.4-10.2) H 05/09/23 23:06 05/09/23 23:06 05/09/23 23:06 Assessment and Plan Assessment: 1. End-stage renal disease recently started peritoneal dialysis about 2 weeks ago. Patient still has the right IJ permacath however he uses a special dialyzer. There is definitely a component of uremia given the significantly elevated serum creatinine. We will attempt a hemodialysis treatment along with initiation of PD. Patient may need respite hemodialysis treatment for about a week. 2. Hypertensive urgency 3. Hypercalcemia, possibly related to Rocaltrol use as outpatient. Currently not noted on med list. This will need to be further worked up as outpatient. PTH and vitamin D levels will be ordered along with repeat calcium levels. 4. Hyperkalemia associated with end-stage renal disease and not having had dialysis 5. Type 2 diabetes maintained on insulin Plan: Initiate peritoneal dialysis every 4 hours Attempt hemodialysis if patient is ABLE to tolerate treatment with a regular dialyzer Check PTH and vitamin D levels Repeat clonidine if blood pressure remains elevated Repeat labs today next Thank you for the consultation. We will continue to follow the patient with you during his hospitalization.
[2023-05-10] MEDS: DIALYSIS (PERIT 2.5%) 2,000 ML 50 G/2,000 ML BAG INTRAPERIT SCH ×3 (11:55→20:08)
[2023-05-10 12:47] LABS: Glucose,Whole Blood 156 mg/dL (70-110)
[2023-05-10 13:21] LABS: Anion Gap 12 mmol/L; Blood Urea Nitrogen 84 mg/dL (9-20); Carbon Dioxide 32 mmol/L (22-30); Chloride 85 mmol/L (98-107); Glucose 89 mg/dL (74-99); Potassium 5.5 mmol/L (3.5-5.1); Sodium 129 mmol/L (137-145)
[2023-05-10 13:29] LABS: African American GFR (CKD) 3 (>60 ml/min/1.73 sqM); Non-African American GFR(CKD) 3 (>60 ml/min/1.73 sqM)
[2023-05-10] MEDS ORDERED: diphenhydrAMINE 50 MG/ML 1 ML VIAL IVP PRN (18:54)
[2023-05-10] MEDS ORDERED: ATORVASTATIN 20 MG TAB PO SCH (21:00)
[2023-05-10 22:34] VITALS: TEMP 98.2
[2023-05-11] MEDS: DIALYSIS (PERIT 2.5%) 2,000 ML 50 G/2,000 ML BAG INTRAPERIT SCH ×3 (00:06→09:07)
[2023-05-11 04:01] LABS: Glucose,Whole Blood 93 mg/dL (70-110)
[2023-05-11 06:01] LABS: Glucose,Whole Blood 112 mg/dL (70-110)
[2023-05-11] MEDS: INSULIN PUMP MEAL BOLUS 1 UNIT MISC MISCELLANE SCH (06:03)
[2023-05-11] MEDS: HEPARIN SODIUM,PORCINE 5,000 UNIT/ML 1 ML VIAL SQ SCH (08:47)
[2023-05-11] MEDS: Insulin Aspart (For Pump) 100 UNIT/ML VIAL SQ-PUMP SCH (08:47)
[2023-05-11] MEDS: TORSEMIDE 20 MG TAB PO SCH (08:47)
[2023-05-11] MEDS: DOXAZOSIN 4 MG TAB PO SCH (08:48)
[2023-05-11] MEDS: cloNIDine HCL 0.2 MG TAB PO SCH (08:48)
[2023-05-11] MEDS: VALSARTAN 160 MG TAB PO SCH (08:48)
[2023-05-11] MEDS: hydrALAZINE HCL 50 MG TAB PO SCH (08:48)
[2023-05-11] MEDS: amLODIPine 10 MG TAB PO SCH (08:48)
[2023-05-11] MEDS: carvediloL 12.5 MG TAB PO SCH (08:49)
[2023-05-11 08:54] LABS: Basophils % (A) 0 %; Eosinophils # (A) 1.6 k/uL (0-0.7); Eosinophils % (A) 28 %; HGB 10.3 gm/dL (13.0-17.5); Lymphocytes # (A) 1.1 k/uL (1.0-4.8); Lymphocytes % (A) 19 %; MCH 32.4 pg (25.0-35.0); MCHC 32.1 g/dL (31.0-37.0); MCV 100.9 fL (80.0-100.0); Mean Platelet Volume 8.3; Monocytes # (A) 0.4 k/uL (0-1.0); Monocytes % (A) 7 %; Neutrophils # (A) 2.6 k/uL (1.3-7.7); Neutrophils % (A) 44 %; Platelet Count 168 k/uL (150-450); RBC 3.17 m/uL (4.30-5.90); RDW 13.3 % (11.5-15.5); WBC 5.8 k/uL (3.8-10.6)
[2023-05-11] MEDS: HYDROcodone/APAP 5-325MG 1 EACH TAB PO PRN (08:59)
[2023-05-11 09:04] VITALS: BP 164/77; PULSE 52
[2023-05-11 09:21] VITALS: RESP 18
[2023-05-11 09:51] LABS: African American GFR (CKD) 5 (>60 ml/min/1.73 sqM); Anion Gap 12 mmol/L; Blood Urea Nitrogen 62 mg/dL (9-20); Calcium 10.6 mg/dL (8.4-10.2); Carbon Dioxide 28 mmol/L (22-30); Chloride 92 mmol/L (98-107); Glucose 117 mg/dL (74-99); Non-African American GFR(CKD) 4 (>60 ml/min/1.73 sqM); Potassium 5.2 mmol/L (3.5-5.1); Sodium 132 mmol/L (137-145)
--- NOTE | 2023-05-11 11:42 | P.PN ---
Subjective Patient is seen for follow-up for end-stage renal disease. He tolerated only 1-1/2 hours of treatment yesterday and asked to be taken off due to increased anxiety. Patient has however been able to tolerate CAPD quite well. He has had about 200-500 mL of UF with each exchange. Patient wants to go home. Creatinine has decreased to 12.5 and potassium is 5.2. Objective - Vital Signs Vital signs: Vital Signs Temp 98.2 F 05/11/23 09:12 Pulse 52 L 05/11/23 09:12 Resp 18 05/11/23 09:12 BP 164/77 05/11/23 09:12 Pulse Ox 95 05/11/23 09:12 FiO2 Intake & Output 05/10/23 05/11/23 05/11/23 18:59 06:59 18:59 Intake Total 10 940 240 Output Total 650 Balance 10 290 240 Weight 87 kg 87.4 kg Intake: IV 10 Invasive Line 1 10 Oral 540 240 Hemodialysis 400 Output: Hemodialysis 650 Other: Voiding Method Toilet CAPD CAPD Urinal CAPD # Voids 1 0 1 - Exam Patient is awake, comfortable, no acute distress Alert oriented 3 Examination of the heart S1 and S2 Examination of the lungs bilateral breath sounds are heard Abdomen is soft nontender Examination lower extremities shows no significant edema 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 - Labs CBC & Chem 7: 05/11/23 07:51 05/11/23 07:51 Labs: Abnormal Lab Results - Last 24 Hours (Table) 05/10/23 05/10/23 05/10/23 Range/Units 11:02 11:02 12:45 RBC (4.30-5.90) m/uL Hgb (13.0-17.5) gm/dL Hct (39.0-53.0) % MCV (80.0-100.0) fL Eosinophils # (0-0.7) k/uL Sodium 129 L (137-145) mmol/L Potassium 5.5 H (3.5-5.1) mmol/L Chloride 85 L (98-107) mmol/L Carbon Dioxide 32 H (22-30) mmol/L BUN 84 H (9-20) mg/dL Creatinine 15.63 H* (0.66-1.25) mg/dL Glucose (74-99) mg/dL POC Glucose (mg/dL) 156 H (70-110) mg/dL Calcium 12.0 H (8.4-10.2) mg/dL Troponin I 0.055 H* (0.000-0.034) ng/mL 05/11/23 05/11/23 05/11/23 Range/Units 06:00 07:51 07:51 RBC 3.17 L (4.30-5.90) m/uL Hgb 10.3 L (13.0-17.5) gm/dL Hct 32.0 L (39.0-53.0) % MCV 100.9 H (80.0-100.0) fL Eosinophils # 1.6 H (0-0.7) k/uL Sodium 132 L (137-145) mmol/L Potassium 5.2 H (3.5-5.1) mmol/L Chloride 92 L (98-107) mmol/L Carbon Dioxide (22-30) mmol/L BUN 62 H (9-20) mg/dL Creatinine 12.51 H* (0.66-1.25) mg/dL Glucose 117 H (74-99) mg/dL POC Glucose (mg/dL) 112 H (70-110) mg/dL Calcium 10.6 H (8.4-10.2) mg/dL Troponin I (0.000-0.034) ng/mL
--- NOTE | 2023-05-11 12:52 | P.DS ---
Providers Date of admission: 05/10/23 01:13 Expected date of discharge: 05/11/23 Attending physician: Sherron Cho MD Consults: 05/10/23 01:13 Consult Physician Urgent Consulting Provider: Sheba Shaffer Consult Reason/Comments: esrd on peritoneal dialysis Do you want consulting provider notified?: Already Contacted Primary care physician: Devon Mattson Hospital Course: Discharge Diagnosis: Nausea and vomiting secondary to Uremia End-stage renal disease on peritoneal dialysis Refractory hypertension with hypertensive urgency Insulin-dependent diabetes Hyponatremia Hyperkalemia Hypercalcemia Chronic normocytic anemia Hospital Course: 57-year-old male with diabetes mellitus, end-stage renal disease currently on peritoneal dialysis, refractory hypertension presented with nausea and vomiting. Patient has been hypertensive. Laboratory tests showed worsening BUN at 84, creatinine 15.63, bicarb 32, potassium 5.5. Nephrology was consulted. Patient was restarted on peritoneal dialysis as he has not been able to tolerate hemodialysis. Patient currently stable at the time of discharge. Creatinine down trending to 12.5, BUN down trended to 62, potassium slightly better 5.2. Patient being discharged home and continue peritoneal dialysis and may require intermittent dialysis. Follow-up with nephrology. Patient seen and examined at bedside. Vital signs reviewed and stable. General: nontoxic, no distress, appears at stated age Derm: warm, dry, right chest permacath, peritoneal dialysis catheter in place Head: atraumatic, normocephalic, symmetric Eyes: EOMI, no lid lag, anicteric sclera Mouth: no lip lesion, mucus membranes moist Cardiovascular: S1S2 reg, no murmur Lungs: CTA bilateral, no rhonchi, no rales , no accessory muscle use Abdominal: soft, nontender to palpation, no guarding, no appreciable organomegaly Ext: no gross muscle atrophy, no edema, no contractures Neuro: CN II-XI grossly intact, no focal neuro deficits Psych: Alert, oriented, appropriate affect A total of 35 minutes of time were spent preparing this complex discharge summary. Patient was discharged on 05/11/23 at 10:36. Patient Condition at Discharge: Stable Plan - Discharge Summary Discharge Rx Participant: No New Discharge Prescriptions: Continue amLODIPine [Norvasc] 10 mg PO DAILY Atorvastatin [Lipitor] 20 mg PO HS Doxazosin [Cardura] 4 mg PO BID Insulin Aspart (For Pump) [NovoLOG (For Pump)] 0.01 unit SQ-PUMP CONTINUOUS Valsartan 160 mg PO DAILY Dextrose Chew [Glucose Chew Tab] 4 gm PO DIRECTED PRN PRN Reason: Hypoglycemia cloNIDine HCL [Catapres] 0.2 mg PO TID #90 tab hydrALAZINE HCL [Apresoline] 100 mg PO TID Torsemide [Demadex] 100 mg PO DAILY Lactulose 20 gm PO DAILY PRN PRN Reason: Constipation Prednisolone Acetate/Pf [Prednisolone Acet 1% Eye Drop] 1 drop LEFT EYE QID Ketorolac 0.5% Ophth Soln [Acular 0.5%] 1 drop LEFT EYE QID carvediloL [Coreg] 25 mg PO BID Discharge Medication List cloNIDine HCL [Catapres] 0.2 mg PO TID #90 tab 11/05/20 [Rx] hydrALAZINE HCL [Apresoline] 100 mg PO TID 05/22/22 [History] Atorvastatin [Lipitor] 20 mg PO HS 08/06/22 [History] amLODIPine [Norvasc] 10 mg PO DAILY 08/06/22 [History] Doxazosin [Cardura] 4 mg PO BID 02/21/23 [History] Insulin Aspart (For Pump) [NovoLOG (For Pump)] 0.01 unit SQ-PUMP CONTINUOUS 02/21/23 [History] Torsemide [Demadex] 100 mg PO DAILY 02/21/23 [History] Valsartan 160 mg PO DAILY 02/21/23 [History] Dextrose Chew [Glucose Chew Tab] 4 gm PO DIRECTED PRN 05/10/23 [History] Ketorolac 0.5% Ophth Soln [Acular 0.5%] 1 drop LEFT EYE QID 05/10/23 [History] Lactulose 20 gm PO DAILY PRN 05/10/23 [History] Prednisolone Acetate/Pf [Prednisolone Acet 1% Eye Drop] 1 drop LEFT EYE QID 05/10/23 [History] carvediloL [Coreg] 25 mg PO BID 05/10/23 [History] Follow up Appointment(s)/Referral(s): Devon Mattson MD [Primary Care Provider] - 1-2 days Juan Miguel Elliott DO [STAFF PHYSICIAN] - 1 Week Patient Instructions/Handouts: Dialysis Diet (DC), End Stage Kidney Disease (DC) Activity/Diet/Wound Care/Special Instructions: Please see your monkey keeper. Discharge Disposition: HOME SELF-CARE
[2023-05-11] MEDS ORDERED: CALCIUM CARBONATE 500 MG CHEWABLE PO SCH (16:00)
== END 2023-05-11 11:39 | disposition home or self-care (01) ==
LOC: EC 22:26 → 3SCARD 05-10 01:13
PROVIDERS: ADMIT Internal Medicine; ATTEND Internal Medicine
DX: R11.2 Nausea with vomiting, unspecified (principal); I16.0 Hypertensive urgency; I12.0 Hypertensive chronic kidney disease with stage 5 chronic kidney disease or end stage renal disease; N18.6 End stage renal disease; E10.22 Type 1 diabetes mellitus with diabetic chronic kidney disease; D63.1 Anemia in chronic kidney disease; E78.5 Hyperlipidemia, unspecified; E83.52 Hypercalcemia; E87.5 Hyperkalemia; E87.1 Hypo-osmolality and hyponatremia; Z87.891 Personal history of nicotine dependence; Z96.41 Presence of insulin pump (external) (internal); Z99.2 Dependence on renal dialysis; Z79.899 Other long term (current) drug therapy
CPT/HCPCS: 96372 ×3; 96375; 96374; 99285; 36415; 93005; 83880; 80053; 80048 ×2; 83605; 84484 ×2; 85025 ×2; 85610; 83036; 71046; G0378 ×2; J1200; J1644 ×2; J2405; A4722 ×2; 90935

== ENCOUNTER 2023-07-14 19:02 | Inpatient (IN) | payer BC ==
--- NOTE | 2023-07-14 19:32 | ED ---
General Adult HPI - General Source: patient, RN notes reviewed Mode of arrival: wheelchair Limitations: no limitations <Eneida Main - Last Filed: 07/31/23 16:05> <Lux Santos - Last Filed: 08/02/23 10:24> - General Chief complaint: Recheck/Abnormal Lab/Rx Stated complaint: high glucose levels - History of Present Illness Initial comments: 57 year old PMH of type 1 diabetes presents to the emergency department for evaluation of elevated blood sugars for the past 1 week. He states that his sugar has been reading high for around the past week. He states that he has been unable to get it down. Does admit to nausea and vomiting. He is on peritoneal dialysis. (Eneida Main) - Related Data Home Medications Medication Instructions Recorded Confirmed Insulin Aspart (For Pump) [NovoLOG 0.01 unit SQ-PUMP CONTINUOUS 02/21/23 07/14/23 (For Pump)] FLUoxetine HCL [PROzac] 10 mg PO DAILY 07/14/23 07/14/23 carvediloL [Coreg] 25 mg PO DAILY 07/14/23 07/14/23 Previous Rx's Medication Instructions Recorded Losartan [Cozaar] 50 mg PO DAILY #60 tab 07/16/23 hydrALAZINE HCL [Apresoline] 100 mg PO TID #90 tab 07/16/23 Allergies Allergy/AdvReac Type Severity Reaction Status Date / Time Iodinated Contrast Media Allergy Anaphylaxis Verified 07/14/23 21:38 Review of Systems ROS Other: All systems not noted in ROS Statement are negative. <Eneida Main - Last Filed: 07/31/23 16:05> ROS Other: All systems not noted in ROS Statement are negative. <Lux Santos - Last Filed: 08/02/23 10:24> ROS Statement: Those systems with pertinent positive or pertinent negative responses have been documented in the HPI. Past Medical History Past Medical History: Diabetes Mellitus, Dialysis, Hyperlipidemia, Hypertension, Renal Disease Additional Past Medical History / Comment(s): IDDM type I on insulin pump, DKA, chronic kidney disease, bilateral lower extremity edema. peritoneal dialysis History of Any Multi-Drug Resistant Organisms: None Reported Past Surgical History: No Surgical Hx Reported Additional Past Surgical History / Comment(s): R knee arthroscopy, circumcism, HD cath in chest Past Anesthesia/Blood Transfusion Reactions: No Reported Reaction Past Psychological History: No Psychological Hx Reported Smoking Status: Former smoker Past Alcohol Use History: None Reported Past Drug Use History: Marijuana - Past Family History Mother History Unknown: Yes Family Medical History: COPD Father Family Medical History: No Reported History Additional Family Medical History / Comment(s): Mother is healthy. <Eneida Main - Last Filed: 07/31/23 16:05> General Exam Limitations: no limitations <Eneida Main - Last Filed: 07/31/23 16:05> Limitations: no limitations General appearance: alert, in no apparent distress Head exam: Present: atraumatic, normocephalic Eye exam: Present: normal appearance. Absent: scleral icterus, conjunctival injection ENT exam: Present: mucous membranes dry Neck exam: Present: normal inspection Respiratory exam: Present: normal lung sounds bilaterally. Absent: respiratory distress, wheezes, rales, rhonchi, stridor Cardiovascular Exam: Present: regular rate, normal rhythm, systolic murmur. Absent: diastolic murmur, rubs, gallop GI/Abdominal exam: Present: soft. Absent: distended, tenderness, guarding, rebound, rigid, mass, pulsatile mass, hernia Extremities exam: Present: normal inspection, normal capillary refill. Absent: pedal edema, calf tenderness Back exam: Present: normal inspection. Absent: CVA tenderness (R), CVA tenderness (L) Neurological exam: Present: alert Skin exam: Present: warm, dry, intact, normal color. Absent: rash <Lux Santos - Last Filed: 08/02/23 10:24> - General Exam Comments Initial Comments: Visual Physical Exam Vital signs reviewed General: Well-appearing, nontoxic, no acute distress. Head: Normocephalic, atraumatic Eyes: PERRLA, EOMI ENT: Airway patent Chest: Nonlabored breathing Skin: No visual rash, normal skin tone Neuro: Alert and oriented 3 Musculoskeletal: No gross abnormalities (Eneida Main) Course Vital Signs 07/14/23 07/14/23 07/14/23 19:23 21:49 22:35 Temperature 97.8 F Pulse Rate 74 77 77 Pulse Rate [ Right Radial] Respiratory 18 18 16 Rate Blood Pressure 215/106 219/106 219/98 Blood Pressure [Right Arm] O2 Sat by Pulse 93 L 91 L Oximetry 07/14/23 07/15/23 07/15/23 23:00 03:35 05:23 Temperature Pulse Rate 88 88 71 Pulse Rate [ Right Radial] Respiratory 16 18 18 Rate Blood Pressure 187/88 207/111 180/86 Blood Pressure [Right Arm] O2 Sat by Pulse 92 L 90 L 91 L Oximetry 07/15/23 07/15/23 07/15/23 10:00 14:00 19:09 Temperature Pulse Rate 68 68 77 Pulse Rate [ Right Radial] Respiratory 18 18 16 Rate Blood Pressure 211/105 200/106 219/120 Blood Pressure [Right Arm] O2 Sat by Pulse 98 97 Oximetry 07/15/23 07/16/23 07/16/23 20:00 00:00 06:55 Temperature 97.8 F 97.6 F 97.7 F Pulse Rate 73 Pulse Rate [ 72 73 Right Radial] Respiratory 18 18 20 Rate Blood Pressure 192/104 Blood Pressure 162/78 191/94 [Right Arm] O2 Sat by Pulse 94 L 96 92 L Oximetry 07/16/23 07/16/23 07/16/23 07:34 08:00 10:00 Temperature Pulse Rate 70 65 Pulse Rate [ Right Radial] Respiratory 18 16 Rate Blood Pressure 197/92 206/112 142/67 Blood Pressure [Right Arm] O2 Sat by Pulse 97 Oximetry 07/16/23 07/16/23 07/16/23 11:25 13:34 14:29 Temperature 98.1 F 98.9 F Pulse Rate 64 66 66 Pulse Rate [ Right Radial] Respiratory 18 16 18 Rate Blood Pressure 178/85 200/99 213/103 Blood Pressure [Right Arm] O2 Sat by Pulse 93 L 96 Oximetry 07/16/23 07/16/23 07/16/23 14:39 14:59 16:12 Temperature 98.1 F 97.7 F 98.0 F Pulse Rate 66 88 70 Pulse Rate [ Right Radial] Respiratory 18 16 16 Rate Blood Pressure 200/96 201/93 217/104 Blood Pressure [Right Arm] O2 Sat by Pulse 94 L Oximetry 07/16/23 18:07 Temperature 98.3 F Pulse Rate 70 Pulse Rate [ Right Radial] Respiratory 16 Rate Blood Pressure Blood Pressure [Right Arm] O2 Sat by Pulse 97 Oximetry EKG Findings - EKG Results: EKG: sinus rhythm (Rate 76 bpm) - Blocks, [place], Hypertrophy, ST Abn: AV and intraventricular conduction: right bundle branch block (fixed/intermittent, complete/incomplete) (Complete) <Lux Santos - Last Filed: 08/02/23 10:24> Medical Decision Making - Lab Data Result diagrams: 07/16/23 10:31 07/16/23 10:31 <Eneida Main - Last Filed: 07/31/23 16:05> - Lab Data Result diagrams: 07/16/23 10:31 07/16/23 10:31 <DanielleLux - Last Filed: 08/02/23 10:24> - Medical Decision Making Quick note preformed by Eneida Main PA-C (Eneida Main) Had chest x-ray which I interpreted as negative for acute infiltrate, pneumothorax, congestive heart failure Was pt. sent in by a medical professional or institution ([facility], [facility], urgent care, hospital, or retirement...) When possible be specific @ -[No] Did you speak to anyone other than the patient for history (EMS, parent, family, police, friend...)? What history was obtained from this source @ -[No] Did you review nursing and triage notes (agree or disagree)? Why? @ -[I reviewed and agree with nursing and triage notes] Were old charts reviewed (outside hosp., previous admission, EMS record, old EKG, old radiological studies, urgent care reports/EKG's, retirement records)? Report findings @ -[No old charts were reviewed] Differential Diagnosis (chest pain, altered mental status, abdominal pain women, abdominal pain men, vaginal bleeding, weakness, fever, dyspnea, syncope, headache, dizziness, GI bleed, back pain, seizure, CVA, palpatations, mental health, musculoskeletal)? @ -[not applicable] EKG interpreted by me (3pts min.). @ -[As above] X-rays interpreted by me (1pt min.). @ -[None done] CT interpreted by me (1pt min.). @ -[None done] U/S interpreted by me (1pt. min.). @ -[None done] What testing was considered but not performed or refused? (CT, X-rays, U/S, labs)? Why? @ -[None] What meds were considered but not given or refused? Why? @ -[None] Did you discuss the management of the patient with other professionals (professionals i.e. , PA, [facility], lab, RT, psych nurse, social work faculty member, project manager retail, teacher, detention officer, caser)? Give summary @ -[No] Was smoking cessation discussed for >3mins.? @ -[No] Was critical care preformed (if so, how long)? @ -[No] Were there social determinants of health that impacted care today? How? (Homelessness, low income, unemployed, alcoholism, drug addiction, transporta tion, low edu. Level, literacy, decrease access to med. care, half-way, rehab)? @ -[No] Was there de-escalation of care discussed even if they declined (Discuss DNR or withdrawal of care, Hospice)? DNR status @ -[No] What co-morbidities impacted this encounter? (DM, HTN, Smoking, COPD, CAD, Cancer, CVA, ARF, Chemo, Hep., AIDS, mental health diagnosis, sleep apnea, morbid obesity)? @ -[None] Was patient admitted / discharged? Hospital course, mention meds given and route, prescriptions, significant lab abnormalities, going to OR and other pertinent info. @ -[Patient is 57-year-old man who is admitted to have fluid and insulin therapy for HHS. Discussed with admitting physician and treatment recommendations incorporated Undiagnosed new problem with uncertain prognosis? @ -[No] Drug Therapy requiring intensive monitoring for toxicity (Heparin, Nitro, Insulin, Cardizem)? @ -[Insulin Were any procedures done? @ -[No] Diagnosis/symptom? @ -[HHS Acute, or Chronic, or Acute on Chronic? @ -[acute Uncomplicated (without systemic symptoms) or Complicated (systemic symptoms)? @ -[default] Side effects of treatment? @ -[No] Exacerbation, Progression, or Severe Exacerbation? @ -[No] Poses a threat to life or bodily function? How? (Chest pain, [place], [place], pneumonia, PE, COPD, DKA, ARF, appy, cholecystitis, CVA, Diverticulitis, Homicidal, [place] k[place], threat to staff... and all critical care pts) @ -[yes, there is significant morbidity and mortality associated with this syndrome (Lux Santos) - Lab Data Lab Results 07/14/23 07/14/23 07/14/23 Range/Units 19:32 19:35 19:35 WBC 8.5 (3.8-10.6) k/uL RBC 2.38 L (4.30-5.90) m/uL Hgb 8.2 L D (13.0-17.5) gm/dL Hct 24.6 L (39.0-53.0) % MCV 103.1 H (80.0-100.0) fL MCH 34.5 (25.0-35.0) pg MCHC 33.5 (31.0-37.0) g/dL RDW 14.2 (11.5-15.5) % Plt Count 266 (150-450) k/uL MPV 8.2 Neutrophils % 85 % Lymphocytes % 8 % Monocytes % 5 % Eosinophils % 1 % Basophils % 0 % Neutrophils # 7.2 (1.3-7.7) k/uL Lymphocytes # 0.7 L (1.0-4.8) k/uL Monocytes # 0.4 (0-1.0) k/uL Eosinophils # 0.1 (0-0.7) k/uL Basophils # 0.0 (0-0.2) k/uL Macrocytosis Slight PT 10.3 (10.0-12.5) sec INR 0.9 (<1.2) APTT 24.6 (22.0-30.0) sec Sodium (137-145) mmol/L Potassium (3.5-5.1) mmol/L Chloride (98-107) mmol/L Carbon Dioxide (22-30) mmol/L Anion Gap mmol/L BUN (9-20) mg/dL Creatinine (0.66-1.25) mg/dL Est GFR (CKD-EPI)AfAm (>60 ml/min/1.73 sqM) Est GFR (CKD-EPI)NonAf (>60 ml/min/1.73 sqM) Glucose (74-99) mg/dL POC Glucose (mg/dL) >600 H (70-110) mg/dL POC Glu Technical Implementation Lead MARCIA McguireeNaheed Calcium (8.4-10.2) mg/dL Phosphorus (2.5-4.5) mg/dL Magnesium (1.6-2.3) mg/dL Total Bilirubin (0.2-1.3) mg/dL AST (17-59) U/L ALT (4-49) U/L Alkaline Phosphatase (38-126) U/L Total Protein (6.3-8.2) g/dL Albumin (3.5-5.0) g/dL Amylase (30-110) U/L Lipase (23-300) U/L Acetone, Qual (Negative) 07/14/23 07/14/23 07/14/23 Range/Units 19:35 19:35 21:34 WBC (3.8-10.6) k/uL RBC (4.30-5.90) m/uL Hgb (13.0-17.5) gm/dL Hct (39.0-53.0) % MCV (80.0-100.0) fL MCH (25.0-35.0) pg MCHC (31.0-37.0) g/dL RDW (11.5-15.5) % Plt Count (150-450) k/uL MPV Neutrophils % % Lymphocytes % % Monocytes % % Eosinophils % % Basophils % % Neutrophils # (1.3-7.7) k/uL Lymphocytes # (1.0-4.8) k/uL Monocytes # (0-1.0) k/uL Eosinophils # (0-0.7) k/uL Basophils # (0-0.2) k/uL Macrocytosis PT (10.0-12.5) sec INR (<1.2) APTT (22.0-30.0) sec Sodium 127 L (137-145) mmol/L Potassium 3.3 L (3.5-5.1) mmol/L Chloride 82 L (98-107) mmol/L Carbon Dioxide 25 (22-30) mmol/L Anion Gap 20 mmol/L BUN 79 H (9-20) mg/dL Creatinine 9.77 H* (0.66-1.25) mg/dL Est GFR (CKD-EPI)AfAm 6 (>60 ml/min/1.73 sqM) Est GFR (CKD-EPI)NonAf 5 (>60 ml/min/1.73 sqM) Glucose 590 H* (74-99) mg/dL POC Glucose (mg/dL) 368 H (70-110) mg/dL POC Glu Technical Implementation Lead ID Kelly Llanos Calcium 8.5 (8.4-10.2) mg/dL Phosphorus 5.7 H (2.5-4.5) mg/dL Magnesium 2.3 (1.6-2.3) mg/dL Total Bilirubin 0.5 (0.2-1.3) mg/dL AST 27 (17-59) U/L ALT 43 (4-49) U/L Alkaline Phosphatase 69 (38-126) U/L Total Protein 6.0 L (6.3-8.2) g/dL Albumin 3.4 L (3.5-5.0) g/dL Amylase 41 (30-110) U/L Lipase 409 H (23-300) U/L Acetone, Qual Negative (Negative) 07/14/23 Range/Units 22:28 WBC (3.8-10.6) k/uL RBC (4.30-5.90) m/uL Hgb (13.0-17.5) gm/dL Hct (39.0-53.0) % MCV (80.0-100.0) fL MCH (25.0-35.0) pg MCHC (31.0-37.0) g/dL RDW (11.5-15.5) % Plt Count (150-450) k/uL MPV Neutrophils % % Lymphocytes % % Monocytes % % Eosinophils % % Basophils % % Neutrophils # (1.3-7.7) k/uL Lymphocytes # (1.0-4.8) k/uL Monocytes # (0-1.0) k/uL Eosinophils # (0-0.7) k/uL Basophils # (0-0.2) k/uL Macrocytosis PT (10.0-12.5) sec INR (<1.2) APTT (22.0-30.0) sec Sodium (137-145) mmol/L Potassium (3.5-5.1) mmol/L Chloride (98-107) mmol/L Carbon Dioxide (22-30) mmol/L Anion Gap mmol/L BUN (9-20) mg/dL Creatinine (0.66-1.25) mg/dL Est GFR (CKD-EPI)AfAm (>60 ml/min/1.73 sqM) Est GFR (CKD-EPI)NonAf (>60 ml/min/1.73 sqM) Glucose (74-99) mg/dL POC Glucose (mg/dL) 300 H (70-110) mg/dL POC Glu Technical Implementation Lead ID Ravi Hess Calcium (8.4-10.2) mg/dL Phosphorus (2.5-4.5) mg/dL Magnesium (1.6-2.3) mg/dL Total Bilirubin (0.2-1.3) mg/dL AST (17-59) U/L ALT (4-49) U/L Alkaline Phosphatase (38-126) U/L Total Protein (6.3-8.2) g/dL Albumin (3.5-5.0) g/dL Amylase (30-110) U/L Lipase (23-300) U/L Acetone, Qual (Negative) Disposition Is patient prescribed a controlled substance at d/c from ED?: No <Eneida Main - Last Filed: 07/31/23 16:05> Is patient prescribed a controlled substance at d/c from ED?: No <Lux Santos - Last Filed: 08/02/23 10:24> Clinical Impression: Hyperosmolar hyperglycemic state (HHS) Disposition: ADMITTED IP TO THIS HOSP Condition: Serious
[2023-07-14 19:33] LABS: Glucose,Whole Blood >600 mg/dL (70-110)
[2023-07-14 19:48] LABS: Basophils % (A) 0 %; Eosinophils # (A) 0.1 k/uL (0-0.7); Eosinophils % (A) 1 %; HCT 24.6 % (39.0-53.0); Lymphocytes # (A) 0.7 k/uL (1.0-4.8); Lymphocytes % (A) 8 %; MCH 34.5 pg (25.0-35.0); MCHC 33.5 g/dL (31.0-37.0); MCV 103.1 fL (80.0-100.0); Macrocytosis Slight; Mean Platelet Volume 8.2; Monocytes # (A) 0.4 k/uL (0-1.0); Monocytes % (A) 5 %; Neutrophils # (A) 7.2 k/uL (1.3-7.7); Neutrophils % (A) 85 %; Platelet Count 266 k/uL (150-450); RBC 2.38 m/uL (4.30-5.90); RDW 14.2 % (11.5-15.5); WBC 8.5 k/uL (3.8-10.6)
[2023-07-14 19:54] LABS: HGB 8.2 gm/dL (13.0-17.5)
--- NOTE | 2023-07-14 19:55 | XR ---
EXAMINATION TYPE: XR chest 2V DATE OF EXAM: 07/14/2023 COMPARISON: 05/09/2023 HISTORY: 57-year-old male hyperglycemia TECHNIQUE: PA and lateral views FINDINGS: Heart borderline in size. Aorta within normal limits. Perihilar and interstitial opacities have incre ased. No pleural effusion or kristi consolidation. IMPRESSION: Correlate for mild pulmonary vascular congestion.
[2023-07-14 19:58] LABS: ALT 43 U/L (4-49); AST 27 U/L (17-59); African American GFR (CKD) 6 (>60 ml/min/1.73 sqM); Albumin 3.4 g/dL (3.5-5.0); Alkaline Phosphatase 69 U/L (38-126); Amylase 41 U/L (30-110); Anion Gap 20 mmol/L; Blood Urea Nitrogen 79 mg/dL (9-20); Calcium 8.5 mg/dL (8.4-10.2); Carbon Dioxide 25 mmol/L (22-30); Chloride 82 mmol/L (98-107); Lipase 409 U/L (23-300); Non-African American GFR(CKD) 5 (>60 ml/min/1.73 sqM); Potassium 3.3 mmol/L (3.5-5.1); Sodium 127 mmol/L (137-145); Total Bilirubin 0.5 mg/dL (0.2-1.3)
[2023-07-14 20:05] LABS: Glucose 590 mg/dL (74-99)
[2023-07-14 20:06] LABS: INR 0.9 (<1.2); Partial Thromboplastin Time 24.6 sec (22.0-30.0); Prothrombin Time 10.3 sec (10.0-12.5)
[2023-07-14 20:26] LABS: Magnesium 2.3 mg/dL (1.6-2.3); Phosphorus 5.7 mg/dL (2.5-4.5)
[2023-07-14] MEDS ORDERED: Magnesium Replacement Protocol 1 EACH MISC MISCELLANE PRN (21:06)
[2023-07-14] MEDS ORDERED: SODIUM CHLORIDE 0.9% 1,000 ML IV ONE (21:06)
[2023-07-14] MEDS ORDERED: INSULIN REGULAR BOLUS (FROM DRIP BAG) IV ONE (21:06)
[2023-07-14] MEDS ORDERED: DEXTROSE 50% SYRINGE 50 ML IVP PRN ×2 (21:06)
[2023-07-14] MEDS ORDERED: Potassium Replacement Protocol 1 EACH MISC MISCELLANE PRN (21:06)
[2023-07-14] MEDS ORDERED: hydrALAZINE HCL 20 MG/ML 1 ML VIAL IVP STA (21:25)
[2023-07-14 21:41] LABS: Glucose,Whole Blood 368 mg/dL (70-110)
[2023-07-14 22:30] LABS: Glucose,Whole Blood 300 mg/dL (70-110)
[2023-07-14] MEDS: INSULIN REGULAR 100 UNIT in SODIUM CHLORIDE 0.9% 100 ML IV SCH (23:35)
[2023-07-14] MEDS: SODIUM CHLORIDE 0.9% 1,000 ML IV SCH (23:39)
[2023-07-15] MEDS ORDERED: DEXTROSE 50% SYRINGE 50 ML IVP PRN ×2 (02:55)
[2023-07-15] MEDS ORDERED: ONDANSETRON 4 MG/2 ML VIAL IVP PRN (02:59)
[2023-07-15] MEDS: Insulin Aspart (For Pump) 100 UNIT/ML VIAL SQ-PUMP SCH (03:05)
--- NOTE | 2023-07-15 03:19 | P.HPIM ---
History of Present Illness H&P Date: 07/14/23 Chief Complaint: high blood sugar 57 year old male with DM on insulin pump, ESRD on PD he is coming in due to elevated blood sugar, he reports that his CGM has not been working for the past couple days, and was doing manual blood sugar checks, and usually the machine is reading high. today he was experiencing repeated nausea, vomiting, and abd discomfort , denies any GI bleeding , denies any fever, chills, or URI symptoms . he claims to be compliant with his home PD , and insulin pump, but he is not sure of his insulin dosing, and his monitor has not been working . he denies any changes in urinary or bowel habits. denies any chest pain or trouble breathing. patient denies any known sick contact, denies smoking , or heavy alcohol . admits to occasional marijuana review of systems Pertinent positives as noted in HPI. All other systems were reviewed and are negative on exam Constitutional: No acute distress, conversant, pleasant Eyes: Anicteric sclerae, moist conjunctiva, Pupils equal round reactive to light ENMT: NC/AT Oropharynx clear, no erythema, or exudates Neck: Supple, no masses, or JVD No carotid bruits No thyromegaly Lungs: Clear to auscultation Clear to percussion Normal respiratory effort, no accessory muscle use Cardiovascular: Heart regular in rate and rhythm, No murmurs, gallops, or rubs No peripheral edema Abdominal: Soft Nontender, no guarding, rebound or rigidity Abdomen moving with respiration Normoactive bowel sounds No hepatomegaly, No splenomegaly No palpable mass No abdominal wall hernia noted Skin: PD catheter insertion site looks unremarkable , no drainage or skin changes. Extremities: No digital cyanosis No clubbing Pedal pulses intact and symmetrical Radial pulses intact and symmetrical No calf tenderness Psychiatric: Alert and oriented to person, place and time Appropriate affect fair judgement Neuro Muscles Strength 5/5 in all 4 extremities Sensation to light touch grossly present throughout Cranial nerves II-XII grossly intact Lymphatics: no palpable cervical or supraclavicular lymph nodes Past Medical History Past Medical History: Diabetes Mellitus, Dialysis, Hyperlipidemia, Hypertension, Renal Disease Additional Past Medical History / Comment(s): IDDM type I on insulin pump, DKA, chronic kidney disease, bilateral lower extremity edema. peritoneal dialysis History of Any Multi-Drug Resistant Organisms: None Reported Past Surgical History: No Surgical Hx Reported Additional Past Surgical History / Comment(s): R knee arthroscopy, circumcism, H D cath in chest Past Anesthesia/Blood Transfusion Reactions: No Reported Reaction Past Psychological History: No Psychological Hx Reported Smoking Status: Former smoker Past Alcohol Use History: None Reported Past Drug Use History: Marijuana - Past Family History Mother History Unknown: Yes Family Medical History: COPD Father Family Medical History: No Reported History Additional Family Medical History / Comment(s): Mother is healthy. Medications and Allergies Home Medications Medication Instructions Recorded Confirmed Type hydrALAZINE HCL [Apresoline] 100 mg PO TID PRN 05/22/22 07/14/23 History Insulin Aspart (For Pump) [NovoLOG 0.01 unit SQ-PUMP CONTINUOUS 02/21/23 07/14/23 History (For Pump)] FLUoxetine HCL [PROzac] 10 mg PO DAILY 07/14/23 07/14/23 History carvediloL [Coreg] 25 mg PO DAILY 07/14/23 07/14/23 History Allergies Allergy/AdvReac Type Severity Reaction Status Date / Time Iodinated Contrast Media Allergy Anaphylaxis Verified 07/14/23 21:38 Physical Exam Vitals: Vital Signs Temp Pulse Resp BP Pulse Ox 07/14/23 19:23 97.8 F 74 18 215/106 93 L Intake and Output 07/14/23 07/14/23 07/14/23 06:59 14:59 22:59 Other: Weight 80 kg Results CBC & Chem 7: 07/14/23 19:35 07/14/23 19:35 Labs: Abnormal Lab Results - Last 24 Hours (Table) 07/14/23 07/14/23 07/14/23 Range/Units 19:32 19:35 19:35 RBC 2.38 L (4.30-5.90) m/uL Hgb 8.2 L D (13.0-17.5) gm/dL Hct 24.6 L (39.0-53.0) % MCV 103.1 H (80.0-100.0) fL Lymphocytes # 0.7 L (1.0-4.8) k/uL Sodium 127 L (137-145) mmol/L Potassium 3.3 L (3.5-5.1) mmol/L Chloride 82 L (98-107) mmol/L BUN 79 H (9-20) mg/dL Creatinine 9.77 H* (0.66-1.25) mg/dL Glucose 590 H* (74-99) mg/dL POC Glucose (mg/dL) >600 H (70-110) mg/dL Phosphorus (2.5-4.5) mg/dL Total Protein 6.0 L (6.3-8.2) g/dL Albumin 3.4 L (3.5-5.0) g/dL Lipase 409 H (23-300) U/L 07/14/23 Range/Units 19:35 RBC (4.30-5.90) m/uL Hgb (13.0-17.5) gm/dL Hct (39.0-53.0) % MCV (80.0-100.0) fL Lymphocytes # (1.0-4.8) k/uL Sodium (137-145) mmol/L Potassium (3.5-5.1) mmol/L Chloride (98-107) mmol/L BUN (9-20) mg/dL Creatinine (0.66-1.25) mg/dL Glucose (74-99) mg/dL POC Glucose (mg/dL) (70-110) mg/dL Phosphorus 5.7 H (2.5-4.5) mg/dL Total Protein (6.3-8.2) g/dL Albumin (3.5-5.0) g/dL Lipase (23-300) U/L Assessment and Plan Assessment: 57 year old male with DM on insulin pump, ESRD on PD . presented with hyperglycemia and repeated nausea and vomiting , I discussed the case with ED doc and I accepted [facility] admission for [facility] with anticpiated length of stay > 2 midnights HHS DM IVF hydration , continue with normal saline serum acetone negative continue with bolus short acting insulin corrective doses . insulin sliding scale resume patient insulin pump zofran IVP 4 mg q 8 hr PRN hypertension resume coreg 25 mg po daily hypokalemia K 3.3 , replace PO and follow up levels pseudohyponatremia secondary to hyperglycemia ESRD , euvolemic continue with PD nephrology consult chronic anemia 2/2 ESRD denies GI bleeding gb 8.2 continue to monitor ' full code DVT PPX heparin sc tid 5000 units GI PPX protonix 40 mg po daily
[2023-07-15] MEDS ORDERED: hydrALAZINE HCL 20 MG/ML 1 ML VIAL IVP STA (03:41)
[2023-07-15 04:23] LABS: African American GFR (CKD) 6 (>60 ml/min/1.73 sqM); Anion Gap 14 mmol/L; Blood Urea Nitrogen 79 mg/dL (9-20); Carbon Dioxide 28 mmol/L (22-30); Chloride 89 mmol/L (98-107); Glucose 103 mg/dL (74-99); Non-African American GFR(CKD) 5 (>60 ml/min/1.73 sqM); Potassium 2.9 mmol/L (3.5-5.1); Sodium 131 mmol/L (137-145)
[2023-07-15 05:50] LABS: Glucose,Whole Blood 111 mg/dL (70-110)
[2023-07-15] MEDS ORDERED: POTASSIUM CHLORIDE ER 20 MEQ TAB.ER PO STA (08:12)
[2023-07-15 08:25] LABS: Glucose,Whole Blood 82 mg/dL (70-110)
[2023-07-15] MEDS: carvediloL 12.5 MG TAB PO SCH (08:31)
[2023-07-15] MEDS: HEPARIN SODIUM,PORCINE 5,000 UNIT/ML 1 ML VIAL SQ SCH ×2 (08:31→19:04)
[2023-07-15] MEDS: INSULIN ASPART (NovoLOG) 100 UNIT/ML VIAL SQ SCH ×4 (08:32→21:27)
[2023-07-15] MEDS: SODIUM CHLORIDE 0.9% 1,000 ML IV SCH (08:36)
[2023-07-15] MEDS: FLUoxetine HCL 10 MG CAP PO SCH (08:37)
[2023-07-15] MEDS: INSULIN REGULAR 100 UNIT in SODIUM CHLORIDE 0.9% 100 ML IV SCH (08:37)
[2023-07-15 12:13] LABS: Glucose,Whole Blood 316 mg/dL (70-110)
--- NOTE | 2023-07-15 12:23 | P.NPCON ---
History of Present Illness - Reason for Consult end stage renal disease - History of Present Illness Patient is a 57-year-old male with end-stage renal disease maintained on peritoneal dialysis. He is admitted to the hospital as his blood sugars Reading high. His CGM has not been functioning properly for the last 2-3 days. Blood sugar was noted to be elevated at 590 on initial admission. Now it is anita n to 103. Patient has been tolerating PD exchanges fairly well. No complaints of fever chills nausea vomiting or abdominal pain. Review of Systems As per HPI Past Medical History Past Medical History: Diabetes Mellitus, Dialysis, Hyperlipidemia, Hypertension, Renal Disease Additional Past Medical History / Comment(s): IDDM type I on insulin pump, DKA, chronic kidney disease, bilateral lower extremity edema. peritoneal dialysis History of Any Multi-Drug Resistant Organisms: None Reported Past Surgical History: No Surgical Hx Reported Additional Past Surgical History / Comment(s): R knee arthroscopy, circumcism, HD cath in chest Past Anesthesia/Blood Transfusion Reactions: No Reported Reaction Past Psychological History: No Psychological Hx Reported Smoking Status: Former smoker Past Alcohol Use History: None Reported Past Drug Use History: Marijuana - Past Family History Mother History Unknown: Yes Family Medical History: COPD Father Family Medical History: No Reported History Additional Family Medical History / Comment(s): Mother is healthy. Medications and Allergies Home Medications Medication Instructions Recorded Confirmed Type hydrALAZINE HCL [Apresoline] 100 mg PO TID PRN 05/22/22 07/14/23 History Insulin Aspart (For Pump) [NovoLOG 0.01 unit SQ-PUMP CONTINUOUS 02/21/23 07/14/23 History (For Pump)] FLUoxetine HCL [PROzac] 10 mg PO DAILY 07/14/23 07/14/23 History carvediloL [Coreg] 25 mg PO DAILY 07/14/23 07/14/23 History Allergies Allergy/AdvReac Type Severity Reaction Status Date / Time Iodinated Contrast Media Allergy Anaphylaxis Verified 07/14/23 21:38 Physical Exam Vitals: Vital Signs Temp Pulse Resp BP Pulse Ox 07/15/23 05:23 71 18 180/86 91 L 07/15/23 03:35 88 18 207/111 90 L 07/14/23 23:00 88 16 187/88 92 L 07/14/23 22:35 77 16 219/98 91 L 07/14/23 21:49 77 18 219/106 07/14/23 19:23 97.8 F 74 18 215/106 93 L Intake and Output 07/14/23 07/15/23 07/15/23 22:59 06:59 14:59 Other: Weight 80 kg Patient is awake, comfortable, no acute distress Alert oriented 3 Examination of the heart S1 and S2 Examination of the lungs bilateral breath sounds are heard Abdomen is soft nontender Examination of lower extremities shows no evidence of edema [employer] exam grossly intact Results - Lab Results Most recent lab results Calcium 8.5 mg/dL (8.4-10.2) 07/14/23 19:35 Phosphorus 5.1 mg/dL (2.5-4.5) H 07/15/23 03:51 Magnesium 2.3 mg/dL (1.6-2.3) 07/14/23 19:35 07/14/23 19:35 07/15/23 03:51 Assessment and Plan Assessment: 1. End-stage renal disease on peritoneal dialysis 2. Hypokalemia associated with PD and correction of hyperglycemia 3. CK D mineral bone disorder 4. Hypertension with CK D stage IV Plan: Add hydralazine that patient takes at home DC IV fluids Maintain peritoneal dialysis exchanges Replace potassium. Thank you for the consultation. We will continue to follow the patient with you during his hospitalization.
[2023-07-15] MEDS: DIALYSIS (PERIT 2.5%) 2,500 ML 62.5 G/2,500 ML BAG INTRAPERIT SCH ×3 (14:00→21:38)
[2023-07-15] MEDS: hydrALAZINE HCL 50 MG TAB PO SCH ×3 (14:03→21:27)
--- NOTE | 2023-07-15 14:25 | P.PN ---
Subjective Progress Note Date: 07/15/23 Hospital Course: 57-year-old male with history of diabetes on insulin pump, ESRD on peritoneal dialysis presenting with nausea, vomiting, and hyperglycemia. He had malfunctioning continuous glucose monitor at home. He was using a glucometer that showed hyperglycemia. Continue to use his insulin pump at home. No issues with his peritoneal dialysis. On arrival, patient was hypertensive. WBC showed hemoglobin of 8.2, on baseline, patient was also hypokalemic and hyperglycemic to 600, ketones negative. Patient started back on his insulin pump, blood sugars better controlled. Nephrology also consulted. Subjective: Seen and examined at bedside. No acute events overnight. He claims that his GI symptoms have improved. Pertinent positives and negatives as discussed above, a complete review of systems was performed and all other systems are negative. Vitals Signs Reviewed. General: nontoxic, no distress, appears at stated age Derm: warm, dry Head: atraumatic, normocephalic, symmetric Eyes: EOMI, no lid lag, anicteric sclera Mouth: no lip lesion, mucus membranes moist Cardiovascular: S1S2 reg, no murmur Lungs: CTA bilateral, no rhonchi, no rales , no accessory muscle use Abdominal: soft, nontender to palpation, no guarding, no appreciable organomegaly Ext: no gross muscle atrophy, no edema, no contractures Neuro: CN II-XI grossly intact, no focal neuro deficits Psych: Alert, oriented, appropriate affect Data Reviewed Today: Pertinent Labs: Sodium 131, potassium 2.9, creatinine is 9.7, blood sugars range between 82-316 Imaging: No new imaging Assessment and Plan: She was critically ill, needs close monitoring Active: HHS Diabetes on insulin pump -Blood sugars better controlled -Continue IV insulin, continue home insulin pump, and sliding scale insulin -Reverify hypoglycemia Hypokalemia -Ordered oral potassium 40 mEq -Repeat BMP tomorrow Hypertensive urgency -Restarted on home hydralazine 100 3 times a day -Continue Coreg 25 daily ESRD on peritoneal dialysis -Nephrology note review, peritoneal dialysis ordered, IV fluids discontinued Chronic anemia, likely secondary to ESRD -No active bleeding -Repeat CBC tomorrow Chronic: Depression DVT ppx: Subcu heparin Code status: Full code Anticipated discharge place: Pending clinical course Anticipated discharge time: Pending clinical course Objective - Vital Signs Vital signs: Vital Signs Temp 97.8 F 07/14/23 19:23 Pulse 68 07/15/23 14:00 Resp 18 07/15/23 14:00 BP 200/106 07/15/23 14:00 Pulse Ox 98 07/15/23 14:00 FiO2 Intake & Output 07/14/23 07/15/23 07/15/23 18:59 06:59 18:59 Weight 80 kg - Labs CBC & Chem 7: 07/14/23 19:35 07/15/23 03:51 Labs: Abnormal Lab Results - Last 24 Hours (Table) 07/14/23 07/14/23 07/14/23 Range/Units 19:32 19:35 19:35 RBC 2.38 L (4.30-5.90) m/uL Hgb 8.2 L D (13.0-17.5) gm/dL Hct 24.6 L (39.0-53.0) % MCV 103.1 H (80.0-100.0) fL Lymphocytes # 0.7 L (1.0-4.8) k/uL Sodium 127 L (137-145) mmol/L Potassium 3.3 L (3.5-5.1) mmol/L Chloride 82 L (98-107) mmol/L BUN 79 H (9-20) mg/dL Creatinine 9.77 H* (0.66-1.25) mg/dL Glucose 590 H* (74-99) mg/dL POC Glucose (mg/dL) >600 H (70-110) mg/dL Phosphorus (2.5-4.5) mg/dL Total Protein 6.0 L (6.3-8.2) g/dL Albumin 3.4 L (3.5-5.0) g/dL Lipase 409 H (23-300) U/L 07/14/23 07/14/23 07/14/23 Range/Units 19:35 21:34 22:28 RBC (4.30-5.90) m/uL Hgb (13.0-17.5) gm/dL Hct (39.0-53.0) % MCV (80.0-100.0) fL Lymphocytes # (1.0-4.8) k/uL Sodium (137-145) mmol/L Potassium (3.5-5.1) mmol/L Chloride (98-107) mmol/L BUN (9-20) mg/dL Creatinine (0.66-1.25) mg/dL Glucose (74-99) mg/dL POC Glucose (mg/dL) 368 H 300 H (70-110) mg/dL Phosphorus 5.7 H (2.5-4.5) mg/dL Total Protein (6.3-8.2) g/dL Albumin (3.5-5.0) g/dL Lipase (23-300) U/L 07/15/23 07/15/23 07/15/23 Range/Units 03:51 03:51 05:38 RBC (4.30-5.90) m/uL Hgb (13.0-17.5) gm/dL Hct (39.0-53.0) % MCV (80.0-100.0) fL Lymphocytes # (1.0-4.8) k/uL Sodium 131 L (137-145) mmol/L Potassium 2.9 L (3.5-5.1) mmol/L Chloride 89 L (98-107) mmol/L BUN 79 H (9-20) mg/dL Creatinine 9.70 H* (0.66-1.25) mg/dL Glucose 103 H (74-99) mg/dL POC Glucose (mg/dL) 111 H (70-110) mg/dL Phosphorus 5.1 H (2.5-4.5) mg/dL Total Protein (6.3-8.2) g/dL Albumin (3.5-5.0) g/dL Lipase (23-300) U/L 07/15/23 Range/Units 12:12 RBC (4.30-5.90) m/uL Hgb (13.0-17.5) gm/dL Hct (39.0-53.0) % MCV (80.0-100.0) fL Lymphocytes # (1.0-4.8) k/uL Sodium (137-145) mmol/L Potassium (3.5-5.1) mmol/L Chloride (98-107) mmol/L BUN (9-20) mg/dL Creatinine (0.66-1.25) mg/dL Glucose (74-99) mg/dL POC Glucose (mg/dL) 316 H (70-110) mg/dL Phosphorus (2.5-4.5) mg/dL Total Protein (6.3-8.2) g/dL Albumin (3.5-5.0) g/dL Lipase (23-300) U/L
[2023-07-15 18:43] LABS: Glucose,Whole Blood 250 mg/dL (70-110)
[2023-07-15 21:06] LABS: Glucose,Whole Blood 169 mg/dL (70-110)
[2023-07-15 21:16] LABS: Appearance,Urine Clear (Clear); Bacteria,Urine Rare /hpf; Bilirubin,Urine Negative (Negative); Blood,Urine Small (Negative); Color,Urine Light Yellow; Glucose,Urine (UA) 4+ (Negative); Ketones,Urine Negative (Negative); Leukocyte Esterase,Urine Negative (Negative); Mucus,Urine Rare /hpf; Nitrite,Urine Negative (Negative); Protein,Urine 3+ (Negative); RBC,Urine 1 /hpf (0-5); Specific Gravity,Urine 1.026 (1.001-1.035); Squamous Epithelial Cell,Urine <1 /hpf (0-4); Urobilinogen,Urine <2.0 mg/dL (<2.0); WBC,Urine 2 /hpf (0-5)
[2023-07-15] MEDS ORDERED: INSPUCOR MISCELLANE PRN (21:35)
[2023-07-15] MEDS: INSULIN PUMP MEAL BOLUS 1 UNIT MISC MISCELLANE SCH (22:07)
[2023-07-15 23:10] LABS: African American GFR (CKD) 6 (>60 ml/min/1.73 sqM); Anion Gap 15 mmol/L; Blood Urea Nitrogen 75 mg/dL (9-20); Calcium 8.2 mg/dL (8.4-10.2); Carbon Dioxide 29 mmol/L (22-30); Chloride 88 mmol/L (98-107); Glucose 119 mg/dL (74-99); Non-African American GFR(CKD) 6 (>60 ml/min/1.73 sqM); Phosphorus 5.6 mg/dL (2.5-4.5); Potassium 3.3 mmol/L (3.5-5.1); Sodium 132 mmol/L (137-145)
[2023-07-16] MEDS: POTASSIUM CHLORIDE ER 20 MEQ TAB.ER PO SCH ×2 (00:40→01:17)
[2023-07-16] MEDS: HEPARIN SODIUM,PORCINE 5,000 UNIT/ML 1 ML VIAL SQ SCH ×3 (00:40→15:12)
[2023-07-16] MEDS ORDERED: cloNIDine HCL 0.1 MG TAB PO STA (00:47)
[2023-07-16] MEDS: Insulin Aspart (For Pump) 100 UNIT/ML VIAL SQ-PUMP SCH (02:08)
[2023-07-16] MEDS: DIALYSIS (PERIT 2.5%) 2,500 ML 62.5 G/2,500 ML BAG INTRAPERIT SCH ×2 (04:32→13:06)
[2023-07-16 08:23] LABS: Glucose,Whole Blood 199 mg/dL (70-110)
[2023-07-16] MEDS: INSULIN ASPART (NovoLOG) 100 UNIT/ML VIAL SQ SCH ×2 (08:42→15:08)
[2023-07-16] MEDS: FLUoxetine HCL 10 MG CAP PO SCH (08:43)
[2023-07-16] MEDS: carvediloL 12.5 MG TAB PO SCH (08:44)
[2023-07-16] MEDS: hydrALAZINE HCL 50 MG TAB PO SCH ×2 (08:44→18:09)
[2023-07-16] MEDS ORDERED: LOSARTAN 50 MG TAB PO SCH ×2 (09:00→21:00)
[2023-07-16 11:06] LABS: African American GFR (CKD) 6 (>60 ml/min/1.73 sqM); Anion Gap 12 mmol/L; Basophils % (A) 0 %; Blood Urea Nitrogen 70 mg/dL (9-20); Calcium 7.7 mg/dL (8.4-10.2); Carbon Dioxide 28 mmol/L (22-30); Chloride 91 mmol/L (98-107); Eosinophils # (A) 0.3 k/uL (0-0.7); Eosinophils % (A) 6 %; Glucose 177 mg/dL (74-99); HCT 20.6 % (39.0-53.0); Lymphocytes # (A) 1.2 k/uL (1.0-4.8); Lymphocytes % (A) 22 %; MCH 34.6 pg (25.0-35.0); MCHC 33.1 g/dL (31.0-37.0); MCV 104.5 fL (80.0-100.0); Macrocytosis Moderate; Magnesium 2.1 mg/dL (1.6-2.3); Mean Platelet Volume 8.2; Monocytes # (A) 0.3 k/uL (0-1.0); Monocytes % (A) 5 %; Neutrophils # (A) 3.4 k/uL (1.3-7.7); Neutrophils % (A) 64 %; Non-African American GFR(CKD) 5 (>60 ml/min/1.73 sqM); Platelet Count 212 k/uL (150-450); Potassium 3.6 mmol/L (3.5-5.1); RBC 1.97 m/uL (4.30-5.90); RDW 14.4 % (11.5-15.5); Sodium 131 mmol/L (137-145); WBC 5.3 k/uL (3.8-10.6)
[2023-07-16 11:10] LABS: HGB 6.8 gm/dL (13.0-17.5)
--- NOTE | 2023-07-16 11:14 | P.PN ---
Subjective Patient is seen for follow-up for end-stage renal disease. Currently maintained on peritoneal dialysis. He was admitted with hyperglycemia and malfunctioning CGM. Blood pressure is also significantly elevated as blood pressure medicines were recently decreased as outpatient. No significant complaints today. Objective - Vital Signs Vital signs: Vital Signs Temp 97.7 F 07/16/23 06:55 Pulse 65 07/16/23 10:00 Resp 16 07/16/23 10:00 BP 142/67 07/16/23 10:00 Pulse Ox 97 07/16/23 07:34 FiO2 Intake & Output 07/15/23 07/16/23 07/16/23 18:59 06:59 18:59 Output Total 300 Balance -300 Weight 80 kg Output: Urine 300 Other: Voiding Method Urinal CAPD - Exam Patient is awake, comfortable, no acute distress Alert oriented 3 Examination of the heart S1 and S2 Examination of the lungs bilateral breath sounds are heard Abdomen is soft nontender Examination of lower extremities shows no evidence of edema [employer] exam grossly intact - Labs CBC & Chem 7: 07/16/23 10:31 07/16/23 10:31 Labs: Abnormal Lab Results - Last 24 Hours (Table) 07/15/23 07/15/23 07/15/23 Range/Units 12:12 18:40 21:00 RBC (4.30-5.90) m/uL Hgb (13.0-17.5) gm/dL Hct (39.0-53.0) % MCV (80.0-100.0) fL Sodium (137-145) mmol/L Potassium (3.5-5.1) mmol/L Chloride (98-107) mmol/L BUN (9-20) mg/dL Creatinine (0.66-1.25) mg/dL Glucose (74-99) mg/dL POC Glucose (mg/dL) 316 H 250 H (70-110) mg/dL Calcium (8.4-10.2) mg/dL Phosphorus (2.5-4.5) mg/dL Urine Protein 3+ H (Negative) Urine Glucose (UA) 4+ H (Negative) Urine Blood Small H (Negative) Urine Bacteria Rare H (None) /hpf Urine Mucus Rare H (None) /hpf 07/15/23 07/15/23 07/16/23 Range/Units 21:03 22:22 08:21 RBC (4.30-5.90) m/uL Hgb (13.0-17.5) gm/dL Hct (39.0-53.0) % MCV (80.0-100.0) fL Sodium 132 L (137-145) mmol/L Potassium 3.3 L (3.5-5.1) mmol/L Chloride 88 L (98-107) mmol/L BUN 75 H (9-20) mg/dL Creatinine 9.44 H* (0.66-1.25) mg/dL Glucose 119 H (74-99) mg/dL POC Glucose (mg/dL) 169 H 199 H (70-110) mg/dL Calcium 8.2 L (8.4-10.2) mg/dL Phosphorus 5.6 H (2.5-4.5) mg/dL Urine Protein (Negative) Urine Glucose (UA) (Negative) Urine Blood (Negative) Urine Bacteria (None) /hpf Urine Mucus (None) /hpf 07/16/23 07/16/23 Range/Units 10:31 10:31 RBC 1.97 L (4.30-5.90) m/uL Hgb 6.8 L* (13.0-17.5) gm/dL Hct 20.6 L (39.0-53.0) % MCV 104.5 H (80.0-100.0) fL Sodium 131 L (137-145) mmol/L Potassium (3.5-5.1) mmol/L Chloride 91 L (98-107) mmol/L BUN 70 H (9-20) mg/dL Creatinine 9.65 H* (0.66-1.25) mg/dL Glucose 177 H (74-99) mg/dL POC Glucose (mg/dL) (70-110) mg/dL Calcium 7.7 L (8.4-10.2) mg/dL Phosphorus (2.5-4.5) mg/dL Urine Protein (Negative) Urine Glucose (UA) (Negative) Urine Blood (Negative) Urine Bacteria (None) /hpf Urine Mucus (None) /hpf Assessment and Plan Assessment: 1. End-stage renal disease on peritoneal dialysis 2. Hypokalemia associated with PD and correction of hyperglycemia 3. CK D mineral bone disorder 4. Hypertension with CK D stage IV, uncontrolled. Resume losartan and continue with hydralazine and Coreg. Follow-up as outpatient with adjustment of blood pressure meds based on blood pressure. 5. Hyperglycemia associated with malfunctioning CGM Plan: Resume Cozaar Follow-up as outpatient for blood pressure control and resume cyclic exchanges post discharge.
--- NOTE | 2023-07-16 13:45 | P.DS ---
Providers Date of admission: 07/15/23 03:37 Expected date of discharge: 07/16/23 Attending physician: Sherron Cho MD Consults: 07/15/23 02:56 Consult Physician Routine Consulting Provider: Sheba Shaffer Consult Reason/Comments: ESRD on PD Do you want consulting provider notified?: Yes Primary care physician: Devon Mattson Hospital Course: Discharge Diagnosis: HHS Diabetes on insulin pump Nausea vomiting Hypokalemia Hypertensive urgency ESRD on peritoneal dialysis Anemia of chronic disease Hospital Course: 57-year-old male with history of diabetes on insulin pump, ESRD on peritoneal dialysis presenting with nausea, vomiting, and hyperglycemia. He had malfunctioning continuous glucose monitor at home. He was using a glucometer that showed hyperglycemia. Continue to use his insulin pump at home. No issues with his peritoneal dialysis. On arrival, patient was hypertensive. WBC showed hemoglobin of 8.2, on baseline, patient was also hypokalemic and hyperglycemic to 600, ketones negative. Patient started back on his insulin pump, blood sugars better controlled. Nephrology also consulted. Blood sugars better controlled. Nausea vomiting has resolved. Patient was given potassium repletion with correction. Hemoglobin did drop down, patient remains asymptomatic. He is getting 1 of PRBCs prior to be discharged. He'll follow up with nephrology. Patient seen and examined at bedside. Vital signs reviewed and stable. General: nontoxic, no distress, appears at stated age Derm: warm, dry Head: atraumatic, normocephalic, symmetric Eyes: EOMI, no lid lag, anicteric sclera Mouth: no lip lesion, mucus membranes moist Cardiovascular: S1S2 reg, no murmur Lungs: CTA bilateral, no rhonchi, no rales , no accessory muscle use Abdominal: soft, nontender to palpation, no guarding, no appreciable organomegaly Ext: no gross muscle atrophy, no edema, no contractures Neuro: CN II-XI grossly intact, no focal neuro deficits Psych: Alert, oriented, appropriate affect A total of 33 minutes of time were spent preparing this complex discharge summary. Patient was discharged on 07/16/23 at 1341. Patient Condition at Discharge: Stable Plan - Discharge Summary New Discharge Prescriptions: New hydrALAZINE HCL [Apresoline] 100 mg PO TID #90 tab Losartan [Cozaar] 50 mg PO DAILY #60 tab Continue Insulin Aspart (For Pump) [NovoLOG (For Pump)] 0.01 unit SQ-PUMP CONTINUOUS carvediloL [Coreg] 25 mg PO DAILY FLUoxetine HCL [PROzac] 10 mg PO DAILY Discontinued hydrALAZINE HCL [Apresoline] 100 mg PO TID PRN PRN Reason: Blood Pressure - High Discharge Medication List Insulin Aspart (For Pump) [NovoLOG (For Pump)] 0.01 unit SQ-PUMP CONTINUOUS 02/21/23 [History] FLUoxetine HCL [PROzac] 10 mg PO DAILY 07/14/23 [History] carvediloL [Coreg] 25 mg PO DAILY 07/14/23 [History] Losartan [Cozaar] 50 mg PO DAILY #60 tab 07/16/23 [Rx] hydrALAZINE HCL [Apresoline] 100 mg PO TID #90 tab 07/16/23 [Rx] Follow up Appointment(s)/Referral(s): Devon Mattson MD [Primary Care Provider] - 1-2 days Juan Miguel Elliott DO [STAFF PHYSICIAN] - 1 Week Patient Instructions/Handouts: Chronic Hypertension (DC), Diabetic Hyperglycemia (DC) Activity/Diet/Wound Care/Special Instructions: Please check your blood sugars at least 4 times daily while waiting for your new continuous glucose monitor. Talk to your PD nurse and make an appointment with Dr. Elliott. You will likely need further adjustments to your BP meds. Discharge Disposition: HOME SELF-CARE
[2023-07-16] MEDS ORDERED: DIALYSIS DEX INTRAPERIT ONE (14:00)
[2023-07-16] MEDS ORDERED: HEPARIN SODIUM PORCINE INTRAPERIT ONE (14:00)
[2023-07-16] MEDS: INSULIN PUMP MEAL BOLUS 1 UNIT MISC MISCELLANE SCH (15:08)
[2023-07-16 15:33] VITALS: RESP 16
[2023-07-16 16:42] VITALS: BP 217/104; PULSE 70
[2023-07-16 18:13] VITALS: TEMP 98.3
[2023-07-16] MEDS ORDERED: DIALYSIS (PERIT 2.5%) 2,500 ML 62.5 G/2,500 ML BAG INTRAPERIT SCH (20:00)
--- NOTE | 2023-07-16 20:55 | P.PN ---
Progress Note - Text Labs reviewed/ Hb 6.8g/dL BP remains significantly elevated. Increase cozaar and restart clonidine that patient was previousy taking. Add Aranesp
[2023-07-16] MEDS ORDERED: cloNIDine HCL 0.1 MG TAB PO SCH (21:00)
[2023-07-16] MEDS ORDERED: DARBEPOETIN ALFA 60 MCG/0.3 ML SYRINGE SQ SCH (21:00)
[2023-07-17] MEDS ORDERED: cloNIDine HCL 0.1 MG TAB PO SCH (09:00)
== END 2023-07-16 18:50 | disposition home or self-care (01) | DRG 919 ==
LOC: EC 19:02 → 3SCARD 07-15 03:37 → 1SOBS 07-16 13:54
PROVIDERS: ADMIT Internal Medicine; ATTEND Internal Medicine
PROC: 30233N1 Transfusion of Nonautologous Red Blood Cells into Peripheral Vein, Percutaneous Approach (ICD-10-PCS; principal; 2023-07-16)
DX: T85.614A Breakdown (mechanical) of insulin pump, initial encounter (principal); N18.6 End stage renal disease; E87.0 Hyperosmolality and hypernatremia; I12.0 Hypertensive chronic kidney disease with stage 5 chronic kidney disease or end stage renal disease; E10.69 Type 1 diabetes mellitus with other specified complication; Z79.4 Long term (current) use of insulin; E10.22 Type 1 diabetes mellitus with diabetic chronic kidney disease; D63.1 Anemia in chronic kidney disease; E10.65 Type 1 diabetes mellitus with hyperglycemia; E78.5 Hyperlipidemia, unspecified; E87.6 Hypokalemia; F32.A Depression, unspecified; I16.0 Hypertensive urgency; E83.9 Disorder of mineral metabolism, unspecified; Z79.899 Other long term (current) drug therapy; Z87.891 Personal history of nicotine dependence; Z99.2 Dependence on renal dialysis; Z91.041 Radiographic dye allergy status
CPT/HCPCS: 36415; 36430; 71046; 80048; 80051; 80053; 81001; 82009; 82150; 82565; 82947; 83036; 83690; 83735; 84100; 84520; 85025; 85610; 85730; 86850; 86900; 86901; 86920; 93005; 96361; 96372; 96374; 96375; 96376; 99285

== ENCOUNTER 2023-08-02 11:27 | Emergency (ER) | payer BC ==
[2023-08-02 11:47] VITALS: RESP 18; TEMP 98
--- NOTE | 2023-08-02 12:07 | ED ---
Abdominal Pain HPI - General Source: patient, RN notes reviewed Mode of arrival: ambulatory Limitations: no limitations - History of Present Illness MD Complaint: abdominal pain <Karley Jordan - Last Filed: 08/03/23 06:24> <Aimee Ramírez - Last Filed: 08/04/23 23:52> - General Chief Complaint: Abdominal Pain Stated Complaint: abd pain Time Seen by Provider: 08/02/23 11:42 - History of Present Illness Initial Comments: This is a 57 year old male who presents to the emergency department for abdominal pain. States that this is in the left lower quadrant. This began last night when he was doing his peritoneal dialysis. Denies any nausea/vomiting, diarrhea, or constipation. Denies any hx of similar pain in the past. Unsure how he would characterize his pain. He spoke with his PCP, who advised he come in for evaluation due to being on peritoneal dialysis, in the event there is an infection. His BP is noted to be elevated on arrival. States that it was elevated during his recent admission as well and he had medication adjustments. He admits to forgetting to take his BP medication today until right before he came to the emergency department. He saw Dr. Elliott, nephrology, in the office this week and states that his BP was well controlled then and no additional m edication adjustments were made. Denies any headaches or visual changes. Also denies any chest pain or shortness of breath. (Karley Jordan) - Related Data Home Medications Medication Instructions Recorded Confirmed Insulin Aspart (For Pump) [NovoLOG 0.01 unit SQ-PUMP CONTINUOUS 02/21/23 07/14/23 (For Pump)] FLUoxetine HCL [PROzac] 10 mg PO DAILY 07/14/23 07/14/23 carvediloL [Coreg] 25 mg PO DAILY 07/14/23 07/14/23 Previous Rx's Medication Instructions Recorded Losartan [Cozaar] 50 mg PO DAILY #60 tab 07/16/23 hydrALAZINE HCL [Apresoline] 100 mg PO TID #90 tab 07/16/23 Allergies Allergy/AdvReac Type Severity Reaction Status Date / Time Iodinated Contrast Media Allergy Anaphylaxis Verified 08/02/23 11:39 Review of Systems ROS Other: All systems not noted in ROS Statement are negative. <Karley Jordan - Last Filed: 08/03/23 06:24> ROS Other: All systems not noted in ROS Statement are negative. <DarrellAimee Brandie - Last Filed: 08/04/23 23:52> ROS Statement: Those systems with pertinent positive or pertinent negative responses have been documented in the HPI. Past Medical History Past Medical History: Diabetes Mellitus, Dialysis, Hyperlipidemia, Hypertension, Renal Disease Additional Past Medical History / Comment(s): IDDM type I on insulin pump, DKA, chronic kidney disease, bilateral lower extremity edema. peritoneal dialysis History of Any Multi-Drug Resistant Organisms: None Reported Past Surgical History: No Surgical Hx Reported Additional Past Surgical History / Comment(s): R knee arthroscopy, circumcism, HD cath in chest Past Anesthesia/Blood Transfusion Reactions: No Reported Reaction Past Psychological History: No Psychological Hx Reported Smoking Status: Former smoker Past Alcohol Use History: None Reported Past Drug Use History: Marijuana - Past Family History Mother History Unknown: Yes Family Medical History: COPD Father Family Medical History: No Reported History Additional Family Medical History / Comment(s): Mother is healthy. <Karley Jordan - Last Filed: 08/03/23 06:24> General Exam Limitations: no limitations General appearance: alert, in no apparent distress Head exam: Present: atraumatic, normocephalic, normal inspection Respiratory exam: Present: normal lung sounds bilaterally. Absent: respiratory distress, wheezes, rales, rhonchi, stridor Cardiovascular Exam: Present: regular rate, normal rhythm, normal heart sounds. Absent: systolic murmur, diastolic murmur, rubs, gallop, clicks GI/Abdominal exam: Present: soft, tenderness (LLQ), normal bowel sounds. Absent: distended Neurological exam: Present: alert, oriented X3, CN II-XII intact Psychiatric exam: Present: normal affect, normal mood Skin exam: Present: warm, dry, intact, normal color. Absent: rash <Karley Jordan - Last Filed: 08/03/23 06:24> Course Vital Signs 08/02/23 08/02/23 08/02/23 11:36 11:54 12:00 Temperature 98 F Pulse Rate 70 Respiratory 18 Rate Blood Pressure 202/92 199/92 O2 Sat by Pulse 94 L 97 98 Oximetry 08/02/23 08/02/2324 12:30 13:00 13:30 Temperature Pulse Rate Respiratory Rate Blood Pressure 199/92 199/92 199/92 O2 Sat by Pulse 97 Oximetry 08/02/23 08/02/23 08/02/23 14:00 14:06 14:30 Temperature Pulse Rate 68 75 Respiratory 18 18 Rate Blood Pressure 199/92 210/105 210/109 O2 Sat by Pulse 96 96 Oximetry 08/02/23 08/02/23 08/02/23 15:00 15:30 15:42 Temperature Pulse Rate 76 72 74 Respiratory 18 18 18 Rate Blood Pressure 206/104 216/108 195/94 O2 Sat by Pulse 96 96 97 Oximetry 08/02/23 08/02/23 08/02/23 16:00 16:12 16:30 Temperature Pulse Rate 74 75 72 Respiratory 18 18 18 Rate Blood Pressure 195/94 196/93 196/93 O2 Sat by Pulse 96 98 94 L Oximetry 08/02/23 08/02/23 08/02/23 17:00 17:09 17:32 Temperature Pulse Rate 70 76 71 Respiratory 18 18 18 Rate Blood Pressure 201/100 195/101 196/102 O2 Sat by Pulse 95 95 95 Oximetry 08/02/23 18:35 Temperature Pulse Rate 71 Respiratory 18 Rate Blood Pressure 176/82 O2 Sat by Pulse 96 Oximetry Medical Decision Making - Lab Data Result diagrams: 08/02/23 11:58 08/02/23 11:58 - Radiology Data Radiology results: report reviewed, image reviewed <Karley Jordan - Last Filed: 08/03/23 06:24> - Lab Data Result diagrams: 08/02/23 11:58 08/02/23 11:58 <Aimee Ramírez - Last Filed: 08/04/23 23:52> - Medical Decision Making This is a 57-year-old male who presents to the emergency department for abdominal pain. Was pt. sent in by a medical professional or institution? @ -No Did you speak to anyone other than the patient for history? @ -No Did you review nursing and triage notes? @ -Yes, and I agree, it is accurate with regards to the patient's symptoms. Were old charts reviewed? @ -Yes, discharge summary from 07/16/23 discussing his admission for nausea, vomiting, and hyperglycemia. His BP was noted to be elevated consistently throughout his visit without much improvement. At discharge his BP was 217/104. Differential Diagnosis? @ -Differential Abdominal Pain Men: Appendicitis, cholecystitis, diverticulosis, ischemic bowel, pancreatitis, hepatitis, UTI, gastroenteritis, AAA, incarcerated hernia, bowel obstruction, constipation, inflammatory bowel, hepatitis, peptic ulcer disease, splenic infarction, perforated viscus, testicular torsion, this is not meant to be an all-inclusive list EKG interpreted by me (3pts min.)? @ -EKG interpreted by me demonstrating the following: Sinus rhythm. Ventricular rate 68 beats per minute, OK interval 174 ms, QRS duration 105 ms, QTC 450 ms. X-rays interpreted by me (1pt min.)? @ -Not obtained CT interpreted by me (1pt min.)? @ -CT scan of the abdomen and pelvis obtained. My interpretation identifies no evidence of bowel wall thickening or free air. U/S interpreted by me (1pt. min.)? @ -Not obtained What testing was considered but not performed? (CT, X-rays, U/S, labs)? Why? @ -None What meds were considered but not given? Why? @ -None Did you discuss the management of the patient with other professionals? @ -No Did you reconcile home meds? @ -No Was smoking cessation discussed for >3mins.? @ -No Was critical care preformed (if so, how long)? @ -No Were there social determinants of health that impacted care today? How? (Homelessness, low income, unemployed, alcoholism, drug addiction, transportation, low edu. Level, literacy, decrease access to med. care, fpc, rehab)? @ -No Was there de-escalation of care discussed even if they declined? (Discuss DNR or withdrawal of care, Hospice)? @ -No What co-morbidities impacted this encounter? (DM, HTN, Smoking, COPD, CAD, Cancer, CVA, Hep., AIDS, mental health diagnosis, sleep apnea, morbid obesity)? @ -DM, ESRD on dialysis, HTN, HLD Was patient admitted / discharged? @ -Discharged. Lab work obtained revealing anemia with a hemoglobin of 8.5. This is improved when compared with prior and consistent with the patient's history of anemia. Lipase elevated at 659, but not to the extent of nicole creatitis. CT scan of the abdomen and pelvis obtained demonstrating no acute process to account for his symptoms. He does have small bilateral pleural effusions and a small amount of ascites likely related to the peritoneal dialysis. Peritoneal fluid was drawn off of his line and sent for culture, however there is otherwise no evidence for peritonitis, as the patient is afebrile and there is no leukocytosis. Patient was hypertensive in the emergency department and admitted to taking his blood pressure medication later in the day. BP remained consistently elevated and reached the point of 210/105. However, the patient remained asymptomatic. This was also an ongoing hoyos with his BP during his recent admission a couple of weeks ago and it remain elevated at the time of discharge at 217/104. He was advised to have follow up with his news technical director for additional BP med adjustments. He did follow up with nephrology a few days ago and his BP was well controlled then and he was advised that no additional adjustments were needed. Patient given 10mg of hydralazine, however his BP only had mild improvement and was rechecked at 195/94. He was then given 20mg of hydralazine and his BP remained stable at 196/93. 20mg of Labetelol was then administered. BP continued to remain elevated, and he was then given clonidine and BP improved to 176/82, and at that point the patient was able to be discharged home. Advised Tylenol as needed for pain relief and close monitoring of BP at home, as well as follow up with nephrology and his PCP. Undiagnosed new problem with uncertain prognosis? @ -None Drug Therapy requiring intensive monitoring for toxicity (Heparin, Nitro, Insulin, Cardizem)? @ -None Were any procedures done? @ -None Diagnosis/symptom? @ -Abdominal pain Acute, or Chronic, or Acute on Chronic? @ -Acute Uncomplicated (without systemic symptoms) or Complicated (systemic symptoms)? @ -Uncomplicated Side effects of treatment? @ -None Exacerbation, Progression, or Severe Exacerbation] @ -Not applicable Poses a threat to life or bodily function? @ -Unlikely Return precautions reviewed in depth, the patient is instructed to return to the emergency department with any new, worsening, or concerning symptoms. Patient verbalized understanding. This case was discussed in detail with the attending ED physician, Dr. Ramírez. Presentation, findings, and treatment plan discussed in detail as well. (Karley Jordan) - Lab Data Lab Results 08/02/23 08/02/23 08/02/23 Range/Units 11:58 11:58 11:58 WBC 5.0 (3.8-10.6) k/uL RBC 2.44 L (4.30-5.90) m/uL Hgb 8.5 L D (13.0-17.5) gm/dL Hct 24.7 L (39.0-53.0) % MCV 101.5 H (80.0-100.0) fL MCH 35.0 (25.0-35.0) pg MCHC 34.5 (31.0-37.0) g/dL RDW 14.8 (11.5-15.5) % Plt Count 302 (150-450) k/uL MPV 8.8 Neutrophils % 62 % Lymphocytes % 20 % Monocytes % 7 % Eosinophils % 9 % Basophils % 0 % Neutrophils # 3.1 (1.3-7.7) k/uL Lymphocytes # 1.0 (1.0-4.8) k/uL Monocytes # 0.4 (0-1.0) k/uL Eosinophils # 0.5 (0-0.7) k/uL Basophils # 0.0 (0-0.2) k/uL Macrocytosis Slight Sodium 128 L (137-145) mmol/L Potassium 4.6 (3.5-5.1) mmol/L Chloride 93 L (98-107) mmol/L Carbon Dioxide 28 (22-30) mmol/L Anion Gap 7 mmol/L BUN 54 H (9-20) mg/dL Creatinine 6.57 H (0.66-1.25) mg/dL Est GFR (CKD-EPI)AfAm 10 (>60 ml/min/1.73 sqM) Est GFR (CKD-EPI)NonAf 9 (>60 ml/min/1.73 sqM) Glucose 187 H (74-99) mg/dL Plasma Lactic Acid Howard 1.0 (0.7-2.0) mmol/L Calcium 8.0 L (8.4-10.2) mg/dL Total Bilirubin 0.7 (0.2-1.3) mg/dL AST 45 (17-59) U/L ALT 18 (4-49) U/L Alkaline Phosphatase 52 (38-126) U/L Total Protein 5.9 L (6.3-8.2) g/dL Albumin 2.7 L (3.5-5.0) g/dL Amylase 33 (30-110) U/L Lipase 659 H (23-300) U/L Disposition Is patient prescribed a controlled substance at d/c from ED?: No Time of Disposition: 18:35 <Karley Jordan - Last Filed: 08/03/23 06:24> <Aimee Ramírez - Last Filed: 08/04/23 23:52> Clinical Impression: Abdominal pain, Uncontrolled hypertension Disposition: HOME SELF-CARE Instructions (If sedation given, give patient instructions): Chronic Hypert ension (ED), Hypertension (ED) Additional Instructions: Return to the emergency department with any new, worsening, or concerning symptoms. Take Tylenol as needed for pain relief. Check your sugar and blood pressure at home. Follow up with your primary care provider in 1-2 days. Referrals: Devon Mattson MD [Primary Care Provider] - 1-2 days
[2023-08-02] MEDS ORDERED: HYDROcodone/APAP 5-325MG 1 EACH TAB PO STA (12:18)
[2023-08-02 12:21] LABS: Basophils % (A) 0 %; Eosinophils # (A) 0.5 k/uL (0-0.7); Eosinophils % (A) 9 %; HCT 24.7 % (39.0-53.0); Lymphocytes % (A) 20 %; MCHC 34.5 g/dL (31.0-37.0); MCV 101.5 fL (80.0-100.0); Macrocytosis Slight; Mean Platelet Volume 8.8; Monocytes # (A) 0.4 k/uL (0-1.0); Monocytes % (A) 7 %; Neutrophils # (A) 3.1 k/uL (1.3-7.7); Neutrophils % (A) 62 %; Platelet Count 302 k/uL (150-450); RBC 2.44 m/uL (4.30-5.90); RDW 14.8 % (11.5-15.5)
[2023-08-02 12:24] LABS: HGB 8.5 gm/dL (13.0-17.5)
[2023-08-02 12:35] LABS: ALT 18 U/L (4-49); AST 45 U/L (17-59); African American GFR (CKD) 10 (>60 ml/min/1.73 sqM); Albumin 2.7 g/dL (3.5-5.0); Alkaline Phosphatase 52 U/L (38-126); Amylase 33 U/L (30-110); Anion Gap 7 mmol/L; Blood Urea Nitrogen 54 mg/dL (9-20); Carbon Dioxide 28 mmol/L (22-30); Chloride 93 mmol/L (98-107); Glucose 187 mg/dL (74-99); Lipase 659 U/L (23-300); Non-African American GFR(CKD) 9 (>60 ml/min/1.73 sqM); Sodium 128 mmol/L (137-145); Total Bilirubin 0.7 mg/dL (0.2-1.3); Total Protein 5.9 g/dL (6.3-8.2)
[2023-08-02 12:41] LABS: Potassium 4.6 mmol/L (3.5-5.1)
--- NOTE | 2023-08-02 13:49 | CT ---
EXAMINATION TYPE: CT abdomen pelvis wo con DATE OF EXAM: 08/02/2023 COMPARISON: 09/08/2022 INDICATION: LLQ abdominal pain DLP: 631.1 mGycm, Automated exposure control for dose reduction was used. CONTRAST: 0 mL of Isovue 300. Study performed without Oral Contrast TECHNIQUE: Axial images were obtained from above the diaphragm to the pubic rami in the axial plane a t 5 mm thick sections. Reconstructed images are reviewed on the computer in the coronal plane. FINDINGS: Limited CT sections are obtained the lung bases. Minimal pleural effusions are present.. CT ABDOMEN: Some minimal ascites is present likely related to intraperitoneal dialysis. Dialysis cath eter is in the pelvis.. There is metallic hardening artifact anterior to the superior pole of left ki dney is present some limitation. Liver: Normal Spleen: Normal Pancreas: Normal Adrenal glands: The adrenal glands are normal. Gallbladder: Normal Kidneys: No masses are evident. No hydronephrosis is present. No cysts are present. No renal stone s are evident. Aorta: Vascular calcification is within the aorta. Inferior vena cava: Normal. CT PELVIS: Loops of bowel within the abdomen and pelvis are normal. There are loops of bowel which are incom pletely distended or lack oral contrast limiting their evaluation. Appendix: Normal as visualized. Urinary bladder: Normal. Genitourinary structures: Prostate is unremarkable. Osseous structures: No suspicious lytic or sclerotic lesions. IMPRESSION: 1. No suspicious acute changes to account for left lower quadrant pain. 2. Small bilateral pleural effusions and some minimal ascites. This may be related to intraperitoneal dialysis.
[2023-08-02] MEDS ORDERED: hydrALAZINE HCL 20 MG/ML 1 ML VIAL IVP STA ×2 (14:09→15:41)
[2023-08-02] MEDS ORDERED: LABETALOL 5 MG/ML VIAL MDV IVP STA (16:14)
[2023-08-02 17:33] VITALS: PULSE 71
[2023-08-02] MEDS ORDERED: NITROGLYCERIN SL TABS 0.4 MG TAB SUBLINGUAL STA (18:04)
[2023-08-02] MEDS ORDERED: cloNIDine HCL 0.2 MG TAB PO STA (18:04)
[2023-08-02] MEDS ORDERED: MORPHINE SULFATE 4 MG/ML SYRINGE IVP STA (18:16)
[2023-08-02] MEDS ORDERED: ACET/COD 300 MG/30 MG STARTER PACK 6 TAB BTL PO STA (18:34)
[2023-08-02 18:38] VITALS: BP 176/82
== END 2023-08-02 19:23 | disposition home or self-care (01) ==
LOC: EC 11:27
DX: R10.32 Left lower quadrant pain (principal); I12.0 Hypertensive chronic kidney disease with stage 5 chronic kidney disease or end stage renal disease; D64.9 Anemia, unspecified; R74.8 Abnormal levels of other serum enzymes; J90 Pleural effusion, not elsewhere classified; R18.8 Other ascites; E10.22 Type 1 diabetes mellitus with diabetic chronic kidney disease; N18.6 End stage renal disease; F12.90 Cannabis use, unspecified, uncomplicated; Z99.2 Dependence on renal dialysis; Z91.041 Radiographic dye allergy status; Z87.891 Personal history of nicotine dependence; Z79.899 Other long term (current) drug therapy; Z96.41 Presence of insulin pump (external) (internal)
CPT/HCPCS: 36415; 93005; 80053; 82150; 83605; 83690; 85025; 87070; 87205; 74176; 99285; 96374; 96375 ×2; 96376; J2270; J0360; J1920

== ENCOUNTER 2023-11-13 20:24 | Inpatient (IN) | payer BC ==
--- NOTE | 2023-11-13 22:04 | ED ---
Abdominal Pain HPI - General Source: patient, RN notes reviewed Mode of arrival: ambulatory Limitations: no limitations <Holly Hart - Last Filed: 11/13/23 22:00> - History of Present Illness MD Complaint: abdominal pain -: days(s) Location: diffuse Severity: mild Quality: dull Consistency: intermittent Improves With: nothing Worsens With: nothing Associated Symptoms: chills <Lux Santos - Last Filed: 11/14/23 05:09> - General Chief Complaint: Abdominal Pain Stated Complaint: Peritonitis, catheter replacement Time Seen by Provider: 11/13/23 21:45 - History of Present Illness Initial Comments: Quick [id number] male with history of peritonitis presenting for "abdominal infection". States he has been fighting peritonitis since June of last year and receives IV antibiotics through catheter. His home nurse informed him of an infection and instructed him to come to the ER for catheter replacement. Patient denies current abdominal pain or fever. (Holly Hart) Patient is a 58-year-old man who is on peritoneal dialysis. He states that he has been having trouble with his catheter associated peritonitis since approximately June. Patient states that he recently stopped using antibiotics with his dialysate less than 2 weeks ago. He stopped taking antibiotic tablets on Friday. He received a call today from Dr. Elliott directing him to come to the emergency department for peritonitis. The patient denies fevers but states she has been feeling cold. Currently not having any abdominal pain. (Lux Santos) - Related Data Home Medications Medication Instructions Recorded Confirmed Insulin Aspart (For Pump) [NovoLOG 0.01 unit SQ-PUMP CONTINUOUS 02/21/23 07/14/23 (For Pump)] FLUoxetine HCL [PROzac] 10 mg PO DAILY 07/14/23 07/14/23 carvediloL [Coreg] 25 mg PO DAILY 07/14/23 07/14/23 Previous Rx's Medication Instructions Recorded Losartan [Cozaar] 50 mg PO DAILY #60 tab 07/16/23 hydrALAZINE HCL [Apresoline] 100 mg PO TID #90 tab 07/16/23 Allergies Allergy/AdvReac Type Severity Reaction Status Date / Time Iodinated Contrast Media Allergy Anaphylaxis Verified 11/13/23 20:35 Review of Systems ROS Other: All systems not noted in ROS Statement are negative. <Holly Hart - Last Filed: 11/13/23 22:00> ROS Other: All systems not noted in ROS Statement are negative. Constitutional: Reports: chills. Denies: fever Respiratory: Denies: cough, dyspnea Cardiovascular: Reports: edema. Denies: chest pain, palpitations Gastrointestinal: Denies: abdominal pain, nausea, vomiting, diarrhea Genitourinary: Denies: dysuria, hematuria Musculoskeletal: Denies: back pain Skin: Denies: rash Neurological: Denies: headache, weakness <Lux Santos - Last Filed: 11/14/23 05:09> ROS Statement: Those systems with pertinent positive or pertinent negative responses have been documented in the HPI. Past Medical History Past Medical History: Diabetes Mellitus, Dialysis, Hyperlipidemia, Hypertension, Renal Disease Additional Past Medical History / Comment(s): IDDM type I on insulin pump, DKA, chronic kidney disease, bilateral lower extremity edema. peritoneal dialysis History of Any Multi-Drug Resistant Organisms: None Reported Past Surgical History: No Surgical Hx Reported Additional Past Surgical History / Comment(s): R knee arthroscopy, circumcism, HD cath in chest Past Anesthesia/Blood Transfusion Reactions: No Reported Reaction Past Psychological History: No Psychological Hx Reported Smoking Status: Former smoker Past Alcohol Use History: None Reported Past Drug Use History: Marijuana - Past Family History Mother History Unknown: Yes Family Medical History: COPD Father Family Medical History: No Reported History Additional Family Medical History / Comment(s): Mother is healthy. <Holly Hart - Last Filed: 11/13/23 22:00> General Exam Limitations: no limitations <Holly Hart - Last Filed: 11/13/23 22:00> Limitations: no limitations General appearance: alert, in no apparent distress Head exam: Present: atraumatic, normocephalic Eye exam: Present: normal appearance. Absent: scleral icterus, conjunctival injection ENT exam: Present: normal oropharynx Neck exam: Present: normal inspection Respiratory exam: Present: normal lung sounds bilaterally. Absent: respiratory distress, wheezes, rales, rhonchi, stridor, accessory muscle use Cardiovascular Exam: Present: regular rate, normal rhythm, systolic murmur. Absent: diastolic murmur, rubs, gallop GI/Abdominal exam: Present: tenderness (Minimal abdominal tenderness). Absent: distended, guarding, rebound, rigid, mass Extremities exam: Present: normal inspection, normal capillary refill, pedal edema (Minimal edema at the ankles bilaterally). Absent: calf tenderness Back exam: Present: normal inspection. Absent: CVA tenderness (R), CVA tenderness (L) Neurological exam: Present: alert Skin exam: Present: warm, dry, intact, normal color. Absent: rash <DanielleLux - Last Filed: 11/14/23 05:09> - General Exam Comments Initial Comments: Visual Physical Exam Vital signs reviewed General: Well-appearing, nontoxic, no acute distress. Head: Normocephalic, atraumatic Eyes: PERRLA, EOMI ENT: Airway patent Chest: Nonlabored breathing Skin: No visual rash, normal skin tone Neuro: Alert and oriented 3 Musculoskeletal: No gross abnormalities (Holly Hart) Course Vital Signs 11/13/23 20:34 Temperature 97.8 F Pulse Rate 64 Respiratory 18 Rate Blood Pressure 136/76 O2 Sat by Pulse 97 Oximetry Medical Decision Making <Holly Hart - Last Filed: 11/13/23 22:00> - Lab Data Result diagrams: 11/14/23 01:34 11/14/23 01:34 <Lux Santos - Last Filed: 11/14/23 05:09> - Medical Decision Making I completed the quick note portion of this chart signed Holly Hart PA-C (Holly Hart) - Lab Data Lab Results 11/14/23 11/14/23 11/14/23 Range/Units 01:34 01:34 01:34 WBC 6.2 (3.8-10.6) k/uL RBC 3.21 L (4.30-5.90) m/uL Hgb 10.7 L (13.0-17.5) gm/dL Hct 31.2 L (39.0-53.0) % MCV 97.1 (80.0-100.0) fL MCH 33.3 (25.0-35.0) pg MCHC 34.3 (31.0-37.0) g/dL RDW 14.9 (11.5-15.5) % Plt Count 276 (150-450) k/uL MPV 8.3 Neutrophils % 66 % Lymphocytes % 12 % Monocytes % 5 % Eosinophils % 14 % Basophils % 1 % Neutrophils # 4.1 (1.3-7.7) k/uL Lymphocytes # 0.7 L (1.0-4.8) k/uL Monocytes # 0.3 (0-1.0) k/uL Eosinophils # 0.9 H (0-0.7) k/uL Basophils # 0.0 (0-0.2) k/uL Sodium 129 L (137-145) mmol/L Potassium 3.2 L (3.5-5.1) mmol/L Chloride 93 L (98-107) mmol/L Carbon Dioxide 32 H (22-30) mmol/L Anion Gap 4 mmol/L BUN 76 H (9-20) mg/dL Creatinine 7.38 H* (0.66-1.25) mg/dL Est GFR (CKD-EPI)AfAm 9 (>60 ml/min/1.73 sqM) Est GFR (CKD-EPI)NonAf 7 (>60 ml/min/1.73 sqM) Glucose 100 H (74-99) mg/dL Plasma Lactic Acid Howard 1.1 (0.7-2.0) mmol/L Calcium 8.0 L (8.4-10.2) mg/dL Total Bilirubin 0.6 (0.2-1.3) mg/dL AST 19 (17-59) U/L ALT 12 (4-49) U/L Alkaline Phosphatase 73 (38-126) U/L Total Protein 5.6 L (6.3-8.2) g/dL Albumin 2.6 L (3.5-5.0) g/dL Lipase 521 H (23-300) U/L Disposition <Holly Hart - Last Filed: 11/13/23 22:00> Is patient prescribed a controlled substance at d/c from ED?: No <Lux Santos - Last Filed: 11/14/23 05:09> Clinical Impression: Peritoneal dialysis catheter infection Disposition: ADMITTED IP TO THIS HOSP Condition: Good Referrals: Devon Mattson MD [Primary Care Provider] - 1-2 days
[2023-11-14 01:57] LABS: ALT 12 U/L (4-49); AST 19 U/L (17-59); African American GFR (CKD) 9 (>60 ml/min/1.73 sqM); Albumin 2.6 g/dL (3.5-5.0); Alkaline Phosphatase 73 U/L (38-126); Anion Gap 4 mmol/L; Blood Urea Nitrogen 76 mg/dL (9-20); Carbon Dioxide 32 mmol/L (22-30); Chloride 93 mmol/L (98-107); Glucose 100 mg/dL (74-99); Lipase 521 U/L (23-300); Non-African American GFR(CKD) 7 (>60 ml/min/1.73 sqM); Potassium 3.2 mmol/L (3.5-5.1); Sodium 129 mmol/L (137-145); Total Bilirubin 0.6 mg/dL (0.2-1.3); Total Protein 5.6 g/dL (6.3-8.2)
[2023-11-14] MEDS ORDERED: VANCOMYCIN IV PER PHARMACY 1 EACH MISC MISCELLANE PRN (02:06)
[2023-11-14 02:09] LABS: Basophils % (A) 1 %; Eosinophils # (A) 0.9 k/uL (0-0.7); Eosinophils % (A) 14 %; HCT 31.2 % (39.0-53.0); HGB 10.7 gm/dL (13.0-17.5); Lymphocytes # (A) 0.7 k/uL (1.0-4.8); Lymphocytes % (A) 12 %; MCH 33.3 pg (25.0-35.0); MCHC 34.3 g/dL (31.0-37.0); MCV 97.1 fL (80.0-100.0); Mean Platelet Volume 8.3; Monocytes # (A) 0.3 k/uL (0-1.0); Monocytes % (A) 5 %; Neutrophils # (A) 4.1 k/uL (1.3-7.7); Neutrophils % (A) 66 %; Platelet Count 276 k/uL (150-450); RBC 3.21 m/uL (4.30-5.90); RDW 14.9 % (11.5-15.5); WBC 6.2 k/uL (3.8-10.6)
[2023-11-14] MEDS: VANCOMYCIN 1,500 MG in SODIUM CHLORIDE 0.9% 500 ML 500 ML IVPB ONE (02:42)
--- NOTE | 2023-11-14 06:19 | P.HPIM ---
History of Present Illness H&P Date: 11/14/23 Chief Complaint: PD cath infection 58-year-old male with end-stage renal disease diabetes post hypertension Patient has been on peritoneal dialysis since the beginning of the year he had his peritoneal catheter inserted back in February 2023 however he reports that since the end of June 2023 he has been battling peritoneal dialysis catheter infection with multiple courses of antibiotics last course he finished about 2 weeks ago and then was switched to oral antibiotics up until 2 days ago. Upon follow-up on his peritoneal fluid culture he received a phone call from his director marketing today telling him that he has a recurrent infection he needs to go to the hospital he has been discussing a plan with his doctors that if the infection is not getting under control they would remove the peritoneal dialysis catheter and switch him back to [facility] for dialysis temporarily Otherwise patient denies any fevers chills denies any abdominal pain denies any nausea or vomiting denies any chest pain trouble breathing denies any GI bleeding. He also reports new onset swelling of bilateral lower extremity left worse than right mainly around his legs. He denies any history of DVT recent travel or hospital stay. review of systems Pertinent positives as noted in HPI. All other systems were reviewed and are negative on exam Constitutional: No acute distress, Eyes: Anicteric sclerae, moist conjunctiva, Pupils equal round reactive to light ENMT: NC/AT Oropharynx clear, no erythema, or exudates Neck: Supple, no masses, or JVD No carotid bruits No thyromegaly Lungs: Clear to auscultation Clear to percussion Normal respiratory effort, no accessory muscle use Cardiovascular: Heart regular in rate and rhythm, No murmurs, gallops, or rubs +1 bilateral peripheral edema Abdominal: Soft Nontender, no guarding, rebound or rigidity Abdomen moving with respiration Normoactive bowel sounds Peritoneal dialysis catheter in place no surrounding erythema or induration no purulent drainage Extremities: Edema of the lower third of bilateral legs left worse than right tender to palpation no digital cyanosis No clubbing Pedal pulses intact and symmetrical Radial pulses intact and symmetrical No calf tenderness Psychiatric: Alert and oriented to person, place and time Appropriate affect fair judgement Neuro Muscles Strength 5/5 in all 4 extremities Sensation to light touch grossly present throughout Cranial nerves II-XII grossly intact Past Medical History Past Medical History: Diabetes Mellitus, Dialysis, Hyperlipidemia, Hypertension, Renal Disease Additional Past Medical History / Comment(s): IDDM type I on insulin pump, DKA, chronic kidney disease, bilateral lower extremity edema. peritoneal dialysis History of Any Multi-Drug Resistant Organisms: None Reported Past Surgical History: No Surgical Hx Reported Additional Past Surgical History / Comment(s): R knee arthroscopy, circumcism, HD cath in chest Past Anesthesia/Blood Transfusion Reactions: No Reported Reaction Past Psychological History: No Psychological Hx Reported Smoking Status: Former smoker Past Alcohol Use History: None Reported Past Drug Use History: Marijuana - Past Family History Mother History Unknown: Yes Family Medical History: COPD Father Family Medical History: No Reported History Additional Family Medical History / Comment(s): Mother is healthy. Medications and Allergies Home Medications Medication Instructions Recorded Confirmed Type Insulin Aspart (For Pump) [NovoLOG 0.01 unit SQ-PUMP CONTINUOUS 02/21/23 07/14/23 History (For Pump)] FLUoxetine HCL [PROzac] 10 mg PO DAILY 07/14/23 07/14/23 History carvediloL [Coreg] 25 mg PO DAILY 07/14/23 07/14/23 History Losartan [Cozaar] 50 mg PO DAILY #60 tab 07/16/23 Rx hydrALAZINE HCL [Apresoline] 100 mg PO TID #90 tab 07/16/23 Rx Allergies Allergy/AdvReac Type Severity Reaction Status Date / Time Iodinated Contrast Media Allergy Anaphylaxis Verified 11/13/23 20:35 Physical Exam Vitals: Vital Signs Temp Pulse Resp BP Pulse Ox 11/13/23 20:34 97.8 F 64 18 136/76 97 Intake and Output 11/13/23 11/13/23 11/14/23 14:59 22:59 06:59 Other: Weight 80 kg Results CBC & Chem 7: 11/14/23 01:34 11/14/23 01:34 Labs: Abnormal Lab Results - Last 24 Hours (Table) 11/14/23 11/14/23 Range/Units 01:34 01:34 RBC 3.21 L (4.30-5.90) m/uL Hgb 10.7 L (13.0-17.5) gm/dL Hct 31.2 L (39.0-53.0) % Lymphocytes # 0.7 L (1.0-4.8) k/uL Eosinophils # 0.9 H (0-0.7) k/uL Sodium 129 L (137-145) mmol/L Potassium 3.2 L (3.5-5.1) mmol/L Chloride 93 L (98-107) mmol/L Carbon Dioxide 32 H (22-30) mmol/L BUN 76 H (9-20) mg/dL Creatinine 7.38 H* (0.66-1.25) mg/dL Glucose 100 H (74-99) mg/dL Calcium 8.0 L (8.4-10.2) mg/dL Total Protein 5.6 L (6.3-8.2) g/dL Albumin 2.6 L (3.5-5.0) g/dL Lipase 521 H (23-300) U/L Assessment and Plan Assessment: 58-year-old male with end-stage renal disease diabetes mellitus hypertension coming in for recurrent infection of peritoneal dialysis catheter I discussed case with ED doctor and accepted the admission for peritoneal dialysis catheter infection requiring IV antibiotics and surgical evaluation for removal with anticipated length of stay more than 2 midnights Recurrent peritoneal dialysis catheter infection Follow-up cultures Surgery and nephrology consult Vancomycin dosing by pharmacy Tylenol for fever as needed 650 mg p.o. Blood work showing white count of 6.2 unremarkable End-stage renal disease on peritoneal dialysis Hyponatremia Sodium 129 Hypokalemia potassium 3.2 BUN 76 creatinine 7.3 Patient makes minimal urine Nephrology consult Chronic anemia of chronic disease Hemoglobin 10.7 Patient denies any bleeding Continue to monitor Chronic conditions Diabetes mellitus patient on insulin pump Continue with glucose blood monitoring ACHS Hypertension Controlled Continue with home medications losartan, hydralazine, Coreg Full code DVT prophylaxis heparin subcutaneously
[2023-11-14] MEDS ORDERED: ONDANSETRON 4 MG/2 ML VIAL IVP PRN (06:30)
[2023-11-14] MEDS ORDERED: NALOXONE 0.4 MG/ML 1 ML VIAL IV PRN (06:30)
[2023-11-14 06:42] LABS: Glucose,Whole Blood 94 mg/dL (70-110)
[2023-11-14] MEDS: Insulin Aspart (For Pump) 100 UNIT/ML VIAL SQ-PUMP SCH (07:33)
--- NOTE | 2023-11-14 08:43 | US ---
EXAMINATION TYPE: US venous doppler duplex LE BI DATE OF EXAM: 11/14/2023 7:45 AM COMPARISON: NONE CLINICAL INDICATION: Male, 58 years old with history of new swelling; Edema bilateral legs for 2 days SIDE PERFORMED: bilateral TECHNIQUE: The lower extremity deep venous system is examined utilizing real time linear array sonog barb with graded compression, doppler sonography and color-flow sonography. VESSELS IMAGED: Common Femoral Vein Deep Femoral Vein Greater Saphenous Vein * Femoral Vein Popliteal Vein Small Saphenous Vein * Proximal Calf Veins (* superficial vessels) Right Leg: No evidence of DVT. Multiple lymph nodes right groin, largest = 3.7 x 0.8 x 1.8cm Left Leg: No evidence of DVT IMPRESSION: No evidence for DVT within the bilateral lower extremities imaged from the groin to the upper calves. 2. Incidental borderline and mildly enlarged lymph nodes in the right inguinal region. Correlate with physical exam findings and for possible etiology.
[2023-11-14] MEDS: LOSARTAN 50 MG TAB PO SCH (08:51)
[2023-11-14] MEDS: FLUoxetine HCL 10 MG CAP PO SCH (08:51)
[2023-11-14] MEDS: carvediloL 12.5 MG TAB PO SCH (08:51)
[2023-11-14] MEDS: hydrALAZINE HCL 50 MG TAB PO SCH (08:51)
[2023-11-14] MEDS: HEPARIN SODIUM,PORCINE 5,000 UNIT/ML 1 ML VIAL SQ SCH (08:52)
[2023-11-14] MEDS ORDERED: carvediloL 12.5 MG TAB PO SCH (09:00)
[2023-11-14 09:24] LABS: African American GFR (CKD) 8 (>60 ml/min/1.73 sqM); Anion Gap 7 mmol/L; Blood Urea Nitrogen 67 mg/dL (9-20); Calcium 7.8 mg/dL (8.4-10.2); Carbon Dioxide 30 mmol/L (22-30); Chloride 94 mmol/L (98-107); Glucose 78 mg/dL (74-99); Magnesium 1.8 mg/dL (1.6-2.3); Non-African American GFR(CKD) 7 (>60 ml/min/1.73 sqM); Potassium 3.1 mmol/L (3.5-5.1); Sodium 131 mmol/L (137-145)
--- NOTE | 2023-11-14 11:23 | P.NPCON ---
History of Present Illness - Reason for Consult end stage renal disease - History of Present Illness Reason for consultation: End-stage renal disease History of present illness: Patient is a 58-year-old male seen in renal consultation for end-stage renal disease. He is maintained on peritoneal dialysis. Patient developed peritonitis with fluid culture positive for gram-positive and gram-negative organisms. Patient subsequently completed full course of intraperitoneal vancomycin and Fortaz. He also received oral levofloxacin as well as antifungal. Repeat cell count and culture from this admission showed persistent evidence of peritonitis. Patient's dialysate white cell count was 1970 and flui d culture positive for gram-positive. Patient was subsequently advised to go to the hospital for removal of PD catheter and initiation of hemodialysis. Patient has history of hypertension as well as diabetes. He denies history of coronary artery disease. Oral intake fair. Patient denies fever but did have chills. No vomiting or diarrhea. Dialysate has been cloudy. Vital signs are stable. General: No acute distress. HEENT: Head exam is unremarkable. LUNGS: No audible rhonchi or wheezes. HEART: Rate and Rhythm are regular. ABDOMEN: Nontender. EXTREMITITES: 1+ edema. Past Medical History Past Medical History: Diabetes Mellitus, Dialysis, Hyperlipidemia, Hypertension, Renal Disease Additional Past Medical History / Comment(s): IDDM type I on insulin pump, DKA, chronic kidney disease, bilateral lower extremity edema. peritoneal dialysis History of Any Multi-Drug Resistant Organisms: None Reported Past Surgical History: No Surgical Hx Reported Additional Past Surgical History / Comment(s): R knee arthroscopy, circumcism, HD cath in chest Past Anesthesia/Blood Transfusion Reactions: No Reported Reaction Past Psychological History: No Psychological Hx Reported Smoking Status: Former smoker Past Alcohol Use History: None Reported Past Drug Use History: Marijuana - Past Family History Mother History Unknown: Yes Family Medical History: COPD Father Family Medical History: No Reported History Additional Family Medical History / Comment(s): Mother is healthy. Medications and Allergies Home Medications Medication Instructions Recorded Confirmed Type Insulin Aspart (For Pump) [NovoLOG 0.01 unit SQ-PUMP CONTINUOUS 02/21/23 History (For Pump)] FLUoxetine HCL [PROzac] 10 mg PO DAILY 07/14/23 11/14/23 History carvediloL [Coreg] 25 mg PO BID 07/14/23 11/14/23 History Losartan [Cozaar] 50 mg PO DAILY #60 tab 07/16/23 11/14/23 Rx Atorvastatin [Lipitor] 20 mg PO DAILY 11/14/23 11/14/23 History Folic Acid/Vit B Complex and C 0.8 mg PO DAILY 11/14/23 11/14/23 History [Lilian-Marsha Tablet] HYDROcodone/APAP 5-325MG [[place] 1 tab PO Q6H 11/14/23 11/14/23 History 5-325] Ondansetron Odt [Zofran Odt] 4 mg PO Q6H PRN 11/14/23 11/14/23 History Torsemide [Demadex] 100 mg PO DAILY 11/14/23 11/14/23 History amLODIPine [Norvasc] 10 mg PO DAILY 11/14/23 11/14/23 History hydrALAZINE HCL [Apresoline] 100 mg PO TID 11/14/23 11/14/23 History Allergies Allergy/AdvReac Type Severity Reaction Status Date / Time Iodinated Contrast Media Allergy Anaphylaxis Verified 11/14/23 07:56 Physical Exam Vitals: Vital Signs Temp Pulse Resp BP Pulse Ox 11/14/23 10:16 98.2 F 11/14/23 08:56 77 18 189/94 94 L 11/14/23 06:00 70 16 173/81 95 11/14/23 05:00 68 13 177/93 11/14/23 03:00 66 16 167/75 94 L 11/14/23 02:00 68 16 170/77 99 11/14/23 01:00 68 18 174/88 99 11/13/23 20:34 97.8 F 64 18 136/76 97 Intake and Output 11/13/23 11/14/23 11/14/23 22:59 06:59 14:59 Other: Weight 80 kg Results - Lab Results Most recent lab results Calcium 7.8 mg/dL (8.4-10.2) L 11/14/23 08:20 Magnesium 1.8 mg/dL (1.6-2.3) 11/14/23 08:20 11/14/23 01:34 11/14/23 08:20 Assessment and Plan Plan: Assessment: 1. End-stage renal disease maintained on peritoneal dialysis. 2. Refractory peritonitis status post treatment with intraperitoneal vancomycin and Fortaz as well as oral levofloxacin and antifungal. Repeat dialysate white cell count posttreatment was 1970 with fluid culture positive for gram-positive. 3. Hypertension with chronic kidney disease. 4. Diabetes mellitus. 5. Chronic kidney disease mineral bone disease. 6. Hypokalemia from poor intake and PD losses. 7. Volume overload. Plan: PD catheter to be discontinued today or tomorrow. Consult vascular surgery for permacath placement. Plan for hemodialysis tomorrow. Check phosphorus level. Replace potassium. Home antihypertensives resumed. Add as needed hydralazine. Consult infectious disease for management of IV antibiotics. Maintain IV Vanco for now. Dose to be adjusted for renal function. Add torsemide 40 mg qday. Thank you for the consultation. I will continue to follow the patient with you during his hospital stay.
[2023-11-14] MEDS: TORSEMIDE 20 MG TAB PO SCH (11:43)
[2023-11-14] MEDS: POTASSIUM CHLORIDE ER 20 MEQ TAB.ER PO STA (11:43)
--- NOTE | 2023-11-14 12:14 | P.GSCN ---
History of Present Illness Consult date: 11/14/23 History of present illness: CHIEF COMPLAINT: Infection from peritoneal dialysis catheter HISTORY OF PRESENT ILLNESS: This is a 58-year-old male with a known history of e nd-stage renal disease on peritoneal dialysis. Patient reports he had peritoneal dialysis catheter placed in February [address] [facility]. Patient reports that he has been having recurrent peritonitis infection since June. Patient complains that he has abdominal pain and the dialysis fluid is cloudy. And he continues to have recurrent infections soon as he completes the antibiotic treatment. 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 He reports being on hemodialysis before. Patient did have mildly elevated lipase. Denies any history of pancreatitis. No epigastric abdominal pain. PAST MEDICAL HISTORY: See below PAST SURGICAL HISTORY: See below MEDICATIONS: See below ALLERGIES: See below SOCIAL HISTORY: No illicit drug use. REVIEW OF SYSTEMS: CONSTITUTIONAL: Denies fever or chills. HEENT: Denies blurred vision, vision changes, or eye pain. Denies hemoptysis CARDIOVASCULAR: Denies chest pain or pressure. RESPIRATORY: No shortness of breath. GASTROINTESTINAL: See HPI for pertinent findings HEMATOLOGIC: Denies bleeding disorders. GENITOURINARY: Denies any blood in urine or increased urinary frequency. SKIN: Denies pruitis. Denies rash. PHYSICAL EXAM: VITAL SIGNS: Reviewed GENERAL: Well-developed in no acute distress. HEENT: No sclera icterus. Extraocular movements grossly intact. Moist buccal mucosa. Head is atraumatic, normocephalic. No nasal drainage. ABDOMEN: Soft. Nondistended. Nontender epigastric and right upper quadrant area. Mild discomfort with palpation of the lower abdomen. Peritoneal dialysis catheter site is clean dry and intact NEUROLOGIC: Alert and oriented. Cranial nerves II through XII grossly intact. LABORATORY DATA: WBC 6.2 Hgb 10.7 platelets 276 Sodium is 131 potassium 3.1 creatinine 8.10 magnesium 1.8 Lipase 521 IMAGING: ASSESSMENT: 1. Recurrent peritonitis secondary to PD catheter infection 2. History of end-stage renal disease 3. Diabetic 4. Hypokalemia 5. Mildly elevated lipase PLAN: -Patient scheduled for peritoneal dialysis catheter removal today with Dr. De La Rosa -Keep patient n.p.o. -Continue to replace potassium Physician Yard Laborer note has been reviewed by physician. Signing provider agrees with the documented findings, assessment, and plan of care. I have personally seen and examined the patient, reviewed the SHEET METAL JOURNEYMAN /PAs history, exam and MDM and agree with the assessment and plan as written. Based on total visit time, I have performed more than 50% of the visit. As above: Patient had dialysis catheter placed in the past at an outside institution. Now with recurrent infection. Spoke with nephrology. They would like the catheter removed. Will plan peritoneal dialysis catheter removal today. Will send the tip for culture. Past Medical History Past Medical History: Diabetes Mellitus, Dialysis, Hyperlipidemia, Hypertension, Renal Disease Additional Past Medical History / Comment(s): IDDM type I on insulin pump, DKA, chronic kidney disease, bilateral lower extremity edema. peritoneal dialysis History of Any Multi-Drug Resistant Organisms: None Reported Past Surgical History: No Surgical Hx Reported Additional Past Surgical History / Comment(s): R knee arthroscopy, circumcism, HD cath in chest Past Anesthesia/Blood Transfusion Reactions: No Reported Reaction Past Psychological History: No Psychological Hx Reported Smoking Status: Former smoker Past Alcohol Use History: None Reported Past Drug Use History: Marijuana - Past Family History Mother History Unknown: Yes Family Medical History: COPD Father Family Medical History: No Reported History Additional Family Medical History / Comment(s): Mother is healthy. Medications and Allergies Home Medications Medication Instructions Recorded Confirmed Type Insulin Aspart (For Pump) [NovoLOG 0.01 unit SQ-PUMP CONTINUOUS 02/21/23 11/14/23 History (For Pump)] FLUoxetine HCL [PROzac] 10 mg PO DAILY 07/14/23 11/14/23 History carvediloL [Coreg] 25 mg PO BID 07/14/23 11/14/23 History Losartan [Cozaar] 50 mg PO DAILY #60 tab 07/16/23 11/14/23 Rx Atorvastatin [Lipitor] 20 mg PO DAILY 11/14/23 11/14/23 History Folic Acid/Vit B Complex and C 0.8 mg PO DAILY 11/14/23 11/14/23 History [Lliian-Marsha Tablet] HYDROcodone/APAP 5-325MG [[place] 1 tab PO Q6H 11/14/23 11/14/23 History 5-325] Ondansetron Odt [Zofran Odt] 4 mg PO Q6H PRN 11/14/23 11/14/23 History Torsemide [Demadex] 100 mg PO DAILY 11/14/23 11/14/23 History amLODIPine [Norvasc] 10 mg PO DAILY 11/14/23 11/14/23 History hydrALAZINE HCL [Apresoline] 100 mg PO TID 11/14/23 11/14/23 History Allergies Allergy/AdvReac Type Severity Reaction Status Date / Time Iodinated Contrast Media Allergy Anaphylaxis Verified 11/14/23 12:55 Surgical - Exam Vital Signs Temp Pulse Resp BP Pulse Ox 97.8 F 64 18 136/76 97 11/13/23 20:34 11/13/23 20:34 11/13/23 20:34 11/13/23 20:34 11/13/23 20:34 Results - Labs 11/14/23 01:34 11/14/23 08:20 Abnormal Lab Results - Last 24 Hours (Table) 11/14/23 11/14/23 11/14/23 Range/Units 01:34 01:34 08:20 RBC 3.21 L (4.30-5.90) m/uL Hgb 10.7 L (13.0-17.5) gm/dL Hct 31.2 L (39.0-53.0) % Lymphocytes # 0.7 L (1.0-4.8) k/uL Eosinophils # 0.9 H (0-0.7) k/uL Sodium 129 L 131 L (137-145) mmol/L Potassium 3.2 L 3.1 L (3.5-5.1) mmol/L Chloride 93 L 94 L (98-107) mmol/L Carbon Dioxide 32 H (22-30) mmol/L BUN 76 H 67 H (9-20) mg/dL Creatinine 7.38 H* 8.10 H* (0.66-1.25) mg/dL Glucose 100 H (74-99) mg/dL Calcium 8.0 L 7.8 L (8.4-10.2) mg/dL Total Protein 5.6 L (6.3-8.2) g/dL Albumin 2.6 L (3.5-5.0) g/dL Lipase 521 H (23-300) U/L Diabetes panel 11/14/23 11/14/23 Range/Units 01:34 08:20 Sodium 129 L 131 L (137-145) mmol/L Potassium 3.2 L 3.1 L (3.5-5.1) mmol/L Chloride 93 L 94 L (98-107) mmol/L Carbon Dioxide 32 H 30 (22-30) mmol/L BUN 76 H 67 H (9-20) mg/dL Creatinine 7.38 H* 8.10 H* (0.66-1.25) mg/dL Glucose 100 H 78 (74-99) mg/dL Calcium 8.0 L 7.8 L (8.4-10.2) mg/dL AST 19 (17-59) U/L ALT 12 (4-49) U/L Alkaline Phosphatase 73 (38-126) U/L Total Protein 5.6 L (6.3-8.2) g/dL Albumin 2.6 L (3.5-5.0) g/dL Calcium panel 11/14/23 11/14/23 Range/Units 01:34 08:20 Calcium 8.0 L 7.8 L (8.4-10.2) mg/dL Albumin 2.6 L (3.5-5.0) g/dL Pituitary panel 11/14/23 11/14/23 Range/Units 01:34 08:20 Sodium 129 L 131 L (137-145) mmol/L Potassium 3.2 L 3.1 L (3.5-5.1) mmol/L Chloride 93 L 94 L (98-107) mmol/L Carbon Dioxide 32 H 30 (22-30) mmol/L BUN 76 H 67 H (9-20) mg/dL Creatinine 7.38 H* 8.10 H* (0.66-1.25) mg/dL Glucose 100 H 78 (74-99) mg/dL Calcium 8.0 L 7.8 L (8.4-10.2) mg/dL Adrenal panel 11/14/23 11/14/23 Range/Units 01:34 08:20 Sodium 129 L 131 L (137-145) mmol/L Potassium 3.2 L 3.1 L (3.5-5.1) mmol/L Chloride 93 L 94 L (98-107) mmol/L Carbon Dioxide 32 H 30 (22-30) mmol/L BUN 76 H 67 H (9-20) mg/dL Creatinine 7.38 H* 8.10 H* (0.66-1.25) mg/dL Glucose 100 H 78 (74-99) mg/dL Calcium 8.0 L 7.8 L (8.4-10.2) mg/dL Total Bilirubin 0.6 (0.2-1.3) mg/dL AST 19 (17-59) U/L ALT 12 (4-49) U/L Alkaline Phosphatase 73 (38-126) U/L Total Protein 5.6 L (6.3-8.2) g/dL Albumin 2.6 L (3.5-5.0) g/dL
[2023-11-14 13:16] LABS: Glucose,Whole Blood 85 mg/dL (70-110)
[2023-11-14] MEDS: SODIUM CHLORIDE 0.9% 1,000 ML IV ONE (13:22)
[2023-11-14] MEDS: ONDANSETRON 4 MG/2 ML VIAL IVP ONE (13:22)
[2023-11-14] MEDS: DEXAMETHASONE SOD PHOSPHATE 4 MG/ML 1 ML VIAL IVP ONE (13:24)
[2023-11-14] MEDS ORDERED: ROCURONIUM 10 MG/ML (5 ML VIAL) IV ONE (13:35)
[2023-11-14] MEDS ORDERED: PROPOFOL 10 MG/ML 20 ML VIAL IV ONE (13:35)
[2023-11-14] MEDS ORDERED: PHENYLEPHRINE-0.9% NACL SYG 1,000 MCG/10 ML SYRINGE ONE (13:35)
[2023-11-14] MEDS ORDERED: fentaNYL (PF) 50 MCG/ML 2 ML AMP ONE (13:35)
[2023-11-14] MEDS ORDERED: SUCCINYLCHOLINE CHLORIDE 200 MG/10 ML VIAL IV ONE (13:35)
[2023-11-14] MEDS ORDERED: GLYCOPYRROLATE 0.2 MG/ML 2 ML VIAL ONE (13:35)
[2023-11-14] MEDS ORDERED: NEOSTIGMINE 1 MG/ML 10 ML VIAL ONE (13:35)
[2023-11-14] MEDS: LIDOCAINE 1%-EPI 1:100,000 20 ML VIAL SQ ONE ×2 (13:53→13:59)
[2023-11-14 14:48] LABS: Glucose,Whole Blood 77 mg/dL (70-110)
[2023-11-14 15:02] LABS: Glucose,Whole Blood 79 mg/dL (70-110)
--- NOTE | 2023-11-14 15:04 | P.OP ---
Date of Procedure: 11/14/23 Procedure(s) Performed: PREOPERATIVE DIAGNOSIS: Renal failure POSTOPERATIVE DIAGNOSIS: Same PROCEDURE: PD cath removal SURGEON: Rj EBL: 2 mL ANESTHESIA: Sedation and local COMPLICATIONS: None OPERATIVE PROCEDURE: Patient was placed in the supine position. The abdomen was prepped and draped in usual sterile fashion. The previous paramedian insertion site incision was re-incised after localizing the skin. The subcutaneous tissues were divided using electrocautery. Blunt dissection around the cuff t hat was present at the fascia and peritoneum took place. The cuff was fully mobilized. The catheter was removed from the perineal cavity. The tip of the catheter was sent for culture. The fascial defect was closed using a running 0 Vicryl stitch. The subcutaneous tissues were closed using 3-0 Vicryl sutures and the skin using 4-0 Monocryl sutures. Skin glue and sterile dressings were applied. DISPOSITION: Stable to recovery room
[2023-11-14] MEDS: HYDROmorphone 0.5 MG/0.5 ML SYRINGE IVP ONE (16:24)
[2023-11-14] MEDS: ACETAMINOPHEN TAB 325 MG TAB PO PRN (18:02)
[2023-11-15 00:08] LABS: Glucose,Whole Blood 220 mg/dL (70-110)
[2023-11-15] MEDS: HYDROmorphone 1 MG/ML 1 ML SYRINGE IVP PRN (03:40)
[2023-11-15 03:41] LABS: Glucose,Whole Blood 199 mg/dL (70-110)
[2023-11-15] MEDS: VANCOMYCIN 1,500 MG in SODIUM CHLORIDE 0.9% 500 ML 500 ML IVPB ONE (05:42)
[2023-11-15 06:05] LABS: Glucose,Whole Blood 193 mg/dL (70-110)
--- NOTE | 2023-11-15 07:50 | P.CONS ---
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 and the patient has been treated with intraperitoneal vancomycin and Fortaz however patient did have a repeat peritoneal dialysis with fluid analysis which shows elevated white count culture positive for gram-positive patient has been admitted to hospital for removal of the PD catheter and initiation of hemodialysis infectious was consulted for management of his IV antibiotic therapy patient denies having any fever or any chills patient denies having any headache or URI symptoms no chest pain or shortness of breath or cough some mild abdominal discomfort denies having any purulent drainage from his PD catheter site cloudy dialysis fluid as mentioned above no nausea no vomiting or any diarrhea Review of Systems Positive point and negatives has been mentioned in the HPI, complete review of systems was performed and all other systems are negative Past Medical History Past Medical History: Diabetes Mellitus, Dialysis, Hyperlipidemia, Hypertension, Renal Disease Additional Past Medical History / Comment(s): IDDM type I on insulin pump, DKA, chronic kidney disease, bilateral lower extremity edema. peritoneal dialysis History of Any Multi-Drug Resistant Organisms: None Reported Past Surgical History: No Surgical Hx Reported Additional Past Surgical History / Comment(s): R knee arthroscopy, circumcism, HD cath in chest Past Anesthesia/Blood Transfusion Reactions: No Reported Reaction Past Psychological History: No Psychological Hx Reported Smoking Status: Former smoker Past Alcohol Use History: None Reported Past Drug Use History: Marijuana - Past Family History Mother History Unknown: Yes Family Medical History: COPD Father Family Medical History: No Reported History Additional Family Medical History / Comment(s): Mother is healthy. Medications and Allergies Home Medications Medication Instructions Recorded Confirmed Type Insulin Aspart (For Pump) [NovoLOG 0.01 unit SQ-PUMP CONTINUOUS 02/21/23 11/14/23 History (For Pump)] FLUoxetine HCL [PROzac] 10 mg PO DAILY 07/14/23 11/14/23 History carvediloL [Coreg] 25 mg PO BID 07/14/23 11/14/23 History Losartan [Cozaar] 50 mg PO DAILY #60 tab 07/16/23 11/14/23 Rx Atorvastatin [Lipitor] 20 mg PO DAILY 11/14/23 11/14/23 History Folic Acid/Vit B Complex and C 0.8 mg PO DAILY 11/14/23 11/14/23 History [Lilian-Marsha Tablet] HYDROcodone/APAP 5-325MG [[place] 1 tab PO Q6H 11/14/23 11/14/23 History 5-325] Ondansetron Odt [Zofran ODT] 4 mg PO Q6H PRN 11/14/23 11/14/23 History amLODIPine [Norvasc] 10 mg PO DAILY 11/14/23 11/14/23 History hydrALAZINE HCL [Apresoline] 100 mg PO TID 11/14/23 11/14/23 History Torsemide [Demadex] 40 mg PO DAILY #90 tab 11/17/23 Rx Vancomycin See Rx Instructions .ROUTE 11/17/23 Rx .COMPLEX #9 each Allergies Allergy/AdvReac Type Severity Reaction Status Date / Time Iodinated Contrast Media Allergy Anaphylaxis Verified 11/14/23 12:55 Physical Exam Vitals: Vital Signs Temp Pulse Resp BP Pulse Ox 11/14/23 11:20 65 18 168/90 94 L 11/14/23 10:16 98.2 F 11/14/23 08:56 77 18 189/94 94 L 11/14/23 06:00 70 16 173/81 95 11/14/23 05:00 68 13 177/93 11/14/23 03:00 66 16 167/75 94 L 11/14/23 02:00 68 16 170/77 99 11/14/23 01:00 68 18 174/88 99 11/13/23 20:34 97.8 F 64 18 136/76 97 Intake and Output 11/13/23 11/14/23 11/14/23 22:59 06:59 14:59 Other: Weight 80 kg GENERAL DESCRIPTION: Middle-aged male lying in bed, no distress. No tachypnea or accessory muscle of respiration use. HEENT: Shows Pallor , no scleral icterus. Oral mucous membrane is dry. No pharyngeal erythema or thrush NECK: Trachea central, no thyromegaly. LUNGS: Unlabored breathing. Clear to auscultation anteriorly. No wheeze or crackle. HEART: S1, S2, regular rate and rhythm. No loud murmur ABDOMEN: Soft, no tenderness, no erythema or tenderness around the peritoneal dialysis catheter EXTREMITIES: No edema of feet. SKIN: No rash, no masses palpable. NEUROLOGICAL: The patient is awake, alert, oriented x3, mood and affect normal. Results CBC & Chem 7: 11/14/23 01:34 11/17/23 06:30 Labs: Abnormal Lab Results - Last 24 Hours (Table) 11/14/23 11/14/23 11/14/23 Range/Units 01:34 01:34 08:20 RBC 3.21 L (4.30-5.90) m/uL Hgb 10.7 L (13.0-17.5) gm/dL Hct 31.2 L (39.0-53.0) % Lymphocytes # 0.7 L (1.0-4.8) k/uL Eosinophils # 0.9 H (0-0.7) k/uL Sodium 129 L 131 L (137-145) mmol/L Potassium 3.2 L 3.1 L (3.5-5.1) mmol/L Chloride 93 L 94 L (98-107) mmol/L Carbon Dioxide 32 H (22-30) mmol/L BUN 76 H 67 H (9-20) mg/dL Creatinine 7.38 H* 8.10 H* (0.66-1.25) mg/dL Glucose 100 H (74-99) mg/dL Calcium 8.0 L 7.8 L (8.4-10.2) mg/dL Total Protein 5.6 L (6.3-8.2) g/dL Albumin 2.6 L (3.5-5.0) g/dL Lipase 521 H (23-300) U/L Assessment and Plan (1) Peritoneal dialysis catheter infection Status: Acute Code(s): T85.71XA - INFECT/INFLM REACTION DUE TO PERITON DIALYSIS CATHETER, INIT SNOMED Code(s): 331659657 Plan: 1patient admitted to hospital with a PD catheter associated peritonitis failing outpatient vancomycin and Fortaz therapy admitted to hospital for removal of the PD catheter tip to be sent for culture blood culture has been requested currently pending 2-we will try to obtain outpatient cultures 3-vancomycin pharmacy to dose target trough of 15 We will follow on clinical condition and cultures to further adjust medication if needed Thank you for this consultation we will follow the patient along with you Dictation was produced using [employer] dictation software. please excuse any grammatical, word or spelling errors. Time with Patient: Greater than 30
--- NOTE | 2023-11-15 08:54 | P.GSCN ---
History of Present Illness History of present illness: 58-year-old gentleman patient is on peritoneal dialysis. Dialysis catheter is infected consulted for placement of a dialysis catheter. Patient has history of diabetes hypertension chronic renal failure Neck is supple Chest is clear. Second sound present Abdomen is soft nontender Vascular femorals are 1+ bilateral Plan is placement of a dialysis catheter risk and complication discussed Past Medical History Past Medical History: Diabetes Mellitus, Dialysis, Hyperlipidemia, Hypertension, Renal Disease Additional Past Medical History / Comment(s): IDDM type I on insulin pump, DKA, chronic kidney disease, bilateral lower extremity edema. peritoneal dialysis History of Any Multi-Drug Resistant Organisms: None Reported Past Surgical History: No Surgical Hx Reported Additional Past Surgical History / Comment(s): R knee arthroscopy, circumcism, HD cath in chest Past Anesthesia/Blood Transfusion Reactions: No Reported Reaction Past Psychological History: No Psychological Hx Reported Smoking Status: Former smoker Past Alcohol Use History: None Reported Past Drug Use History: Marijuana - Past Family History Mother History Unknown: Yes Family Medical History: COPD Father Family Medical History: No Reported History Additional Family Medical History / Comment(s): Mother is healthy. Medications and Allergies Home Medications Medication Instructions Recorded Confirmed Type Insulin Aspart (For Pump) [NovoLOG 0.01 unit SQ-PUMP CONTINUOUS 02/21/23 11/14/23 History (For Pump)] FLUoxetine HCL [PROzac] 10 mg PO DAILY 07/14/23 11/14/23 History carvediloL [Coreg] 25 mg PO BID 07/14/23 11/14/23 History Losartan [Cozaar] 50 mg PO DAILY #60 tab 07/16/23 11/14/23 Rx Atorvastatin [Lipitor] 20 mg PO DAILY 11/14/23 11/14/23 History Folic Acid/Vit B Complex and C 0.8 mg PO DAILY 11/14/23 11/14/23 History [Lilian-Marsha Tablet] HYDROcodone/APAP 5-325MG [[place] 1 tab PO Q6H 11/14/23 11/14/23 History 5-325] Ondansetron Odt [Zofran Odt] 4 mg PO Q6H PRN 11/14/23 11/14/23 History Torsemide [Demadex] 100 mg PO DAILY 11/14/23 11/14/23 History amLODIPine [Norvasc] 10 mg PO DAILY 11/14/23 11/14/23 History hydrALAZINE HCL [Apresoline] 100 mg PO TID 11/14/23 11/14/23 History Allergies Allergy/AdvReac Type Severity Reaction Status Date / Time Iodinated Contrast Media Allergy Anaphylaxis Verified 11/14/23 12:55 Surgical - Exam Vital Signs Temp Pulse Resp BP Pulse Ox 97.8 F 64 18 136/76 97 11/13/23 20:34 11/13/23 20:34 11/13/23 20:34 11/13/23 20:34 11/13/23 20:34 Results - Labs 11/14/23 01:34 11/14/23 08:20 Abnormal Lab Results - Last 24 Hours (Table) 11/14/23 11/15/23 11/15/23 Range/Units 08:20 00:06 03:39 Sodium 131 L (137-145) mmol/L Potassium 3.1 L (3.5-5.1) mmol/L Chloride 94 L (98-107) mmol/L BUN 67 H (9-20) mg/dL Creatinine 8.10 H* (0.66-1.25) mg/dL POC Glucose (mg/dL) 220 H 199 H (70-110) mg/dL Calcium 7.8 L (8.4-10.2) mg/dL 11/15/23 Range/Units 06:02 Sodium (137-145) mmol/L Potassium (3.5-5.1) mmol/L Chloride (98-107) mmol/L BUN (9-20) mg/dL Creatinine (0.66-1.25) mg/dL POC Glucose (mg/dL) 193 H (70-110) mg/dL Calcium (8.4-10.2) mg/dL Diabetes panel 11/14/23 Range/Units 08:20 Sodium 131 L (137-145) mmol/L Potassium 3.1 L (3.5-5.1) mmol/L Chloride 94 L (98-107) mmol/L Carbon Dioxide 30 (22-30) mmol/L BUN 67 H (9-20) mg/dL Creatinine 8.10 H* (0.66-1.25) mg/dL Glucose 78 (74-99) mg/dL Calcium 7.8 L (8.4-10.2) mg/dL Calcium panel 11/14/23 Range/Units 08:20 Calcium 7.8 L (8.4-10.2) mg/dL Pituitary panel 11/14/23 Range/Units 08:20 Sodium 131 L (137-145) mmol/L Potassium 3.1 L (3.5-5.1) mmol/L Chloride 94 L (98-107) mmol/L Carbon Dioxide 30 (22-30) mmol/L BUN 67 H (9-20) mg/dL Creatinine 8.10 H* (0.66-1.25) mg/dL Glucose 78 (74-99) mg/dL Calcium 7.8 L (8.4-10.2) mg/dL Adrenal panel 11/14/23 Range/Units 08:20 Sodium 131 L (137-145) mmol/L Potassium 3.1 L (3.5-5.1) mmol/L Chloride 94 L (98-107) mmol/L Carbon Dioxide 30 (22-30) mmol/L BUN 67 H (9-20) mg/dL Creatinine 8.10 H* (0.66-1.25) mg/dL Glucose 78 (74-99) mg/dL Calcium 7.8 L (8.4-10.2) mg/dL
[2023-11-15] MEDS: diphenhydrAMINE 50 MG/ML 1 ML VIAL ONE (09:13)
[2023-11-15] MEDS: methylPREDNISolone SOD SUCCI 125 MG/2 ML VIAL ONE (09:15)
[2023-11-15] MEDS: LIDOCAINE 1% INJ 10MG/ML (20 ML MDV) SQ ONE ×2 (09:18→09:28)
[2023-11-15] MEDS: fentaNYL (PF) 50 MCG/ML 2 ML AMP ONE (09:19)
[2023-11-15] MEDS ORDERED: LIDOCAINE 1% INJ 10MG/ML (20 ML MDV) ONE ×2 (09:27→09:44)
[2023-11-15] MEDS: MIDAZOLAM 2 MG/2 ML VIAL IVP ONE (09:29)
[2023-11-15] MEDS: IOPAMIDOL-250 100ML BTL IVP ONE (09:32)
--- NOTE | 2023-11-15 09:57 | P.PCN ---
Description of Procedure: Preop diagnosis acute chronic renal failure Postop the same Procedure placement of a dialysis catheter left jugular approach attempted right jugular vein which was small in caliber due to the superior venacavogram Patient was brought to the [facility] right and left side of the neck and chest was prepped draped in Prestel manner this patient had a right IJ catheter in the past for whole year patient has an infected peritoneal dialysis catheter ultrasound-guided micropuncture was introduced right jugular vein found to have a jugular vein was small in caliber superior vena cava by was patent we selected to go to the left side left side was prepped and draped in Prestel manner with 1% lidocaine was infiltrated ultrasound-guided micropuncture introduced left jugular vein micropuncture guide was passed 4 point dilator advanced over the guidewire. Guidewire was passed to support the inferior vena cava. Note was created through the tunnel we brought 28 cm dialysis catheter dilator was advanced. The guidewire ultrasound-guided we passed the sheath on the top of the guidewire under fluoroscopy control catheter was introduced sheath was removed flushed with heparin saline hep-locked secured with 3-0 nylon nighters dressing applied patient taught the procedure well
[2023-11-15 10:10] LABS: BUN/Creat Ratio 7.96 Ratio (12.00-20.00); Blood Urea Nitrogen 67.7 mg/dL (9.0-27.0); Calcium 7.5 mg/dL (8.7-10.3); Carbon Dioxide 27.7 mmol/L (21.6-31.8); Chloride 92 mmol/L (96-109); Glucose 211 mg/dL (70-110); Potassium 4.1 mmol/L (3.5-5.5); Sodium 132 mmol/L (135-145)
--- NOTE | 2023-11-15 11:09 | IR ---
EXAMINATION TYPE: IR cvc insert central tunneled DATE OF EXAM: 11/15/2023 FLUOROSCOPY Dialysis, 1.5 minutes/4.82 Gycm2 DAP, 14.5F x 28 St Dialysis cath lt IJ. 253 images submitted.
[2023-11-15] MEDS: amLODIPine 10 MG TAB PO SCH (11:10)
[2023-11-15] MEDS: ATORVASTATIN 20 MG TAB PO SCH (11:11)
[2023-11-15 11:58] LABS: Glucose,Whole Blood 182 mg/dL (70-110)
--- NOTE | 2023-11-15 14:08 | P.PN ---
Subjective Progress Note Date: 11/15/23 Patient seen in follow-up for ESRD. Recurrent peritonitis on PD with catheter removed yesterday. Went for Permcath placement today and to start HD. Vital signs are stable. General: No acute distress. HEENT: Head exam is unremarkable. LUNGS: No audible rhonchi or wheezes. HEART: Rate and Rhythm are regular. ABDOMEN: Nontender. EXTREMITITES: 1+ edema. Objective - Vital Signs Vital signs: Vital Signs Temp 97.7 F 11/15/23 10:51 Pulse 60 11/15/23 10:51 Resp 16 11/15/23 10:51 BP 167/82 11/15/23 10:51 Pulse Ox 91 L 11/15/23 10:51 FiO2 Intake & Output 11/14/23 11/15/23 11/15/23 18:59 06:59 18:59 Intake Total 500 Output Total 2 Balance 498 Weight 80 kg Intake: IV 500 Output: Estimated Blood Loss 2 Other: Voiding Method Urinal Urinal # Voids 3 - Labs CBC & Chem 7: 11/14/23 01:34 11/15/23 04:24 Labs: Abnormal Lab Results - Last 24 Hours (Table) 11/15/23 11/15/23 11/15/23 Range/Units 00:06 03:39 04:24 Sodium 132 L (135-145) mmol/L Chloride 92 L (96-109) mmol/L Anion Gap 12.30 H (4.00-12.00) mmol/L BUN 67.7 H (9.0-27.0) mg/dL Creatinine 8.5 A* (0.6-1.5) mg/dL Est GFR (CKD-EPI) 7 L (>=60) BUN/Creatinine Ratio 7.96 L (12.00-20.00) Ratio Glucose 211 H (70-110) mg/dL POC Glucose (mg/dL) 220 H 199 H (70-110) mg/dL Calcium 7.5 L (8.7-10.3) mg/dL Phosphorus 6.0 H (2.4-5.1) mg/dL 11/15/23 Range/Units 06:02 Sodium (135-145) mmol/L Chloride (96-109) mmol/L Anion Gap (4.00-12.00) mmol/L BUN (9.0-27.0) mg/dL Creatinine (0.6-1.5) mg/dL Est GFR (CKD-EPI) (>=60) BUN/Creatinine Ratio (12.00-20.00) Ratio Glucose (70-110) mg/dL POC Glucose (mg/dL) 193 H (70-110) mg/dL Calcium (8.7-10.3) mg/dL Phosphorus (2.4-5.1) mg/dL Assessment and Plan Plan: Assessment: 1. End-stage renal disease maintained on peritoneal dialysis. 2. Refractory peritonitis status post treatment with intraperitoneal vancomycin and Fortaz as well as oral levofloxacin and antifungal. Repeat dialysate white cell count posttreatment was 1970 with fluid culture positive for gram-positive. PD catheter removed, Permcath placed today. 3. Hypertension with chronic kidney disease. 4. Diabetes mellitus. 5. Chronic kidney disease mineral bone disease. Phosphorus 6.0, start binders with meals. 6. Hypokalemia from poor intake and PD losses. 7. Volume overload. Plan: Permacath placement today with HD planned. Home antihypertensives resumed. Add as needed hydralazine. Management of IV antibiotics per ID Maintain IV Vanco for now. Dose to be adjusted for renal function. Torsemide 40 mg qday. Will need outpatient HD placement.
--- NOTE | 2023-11-15 15:10 | P.PN ---
Subjective Progress Note Date: 11/15/23 Patient is resting comfortably. He is undergoing dialysis at this time. No new issues or complaints. Patient had a shunt placed for dialysis earlier. Abdomen: No peritonitis. Labs: Creatinine elevated over 8.0. Plan: 1. Hemodialysis management per nephrology 2. Antibiotic management per infectious disease Objective - Vital Signs Vital signs: Vital Signs Temp 98.1 F 11/15/23 13:38 Pulse 65 11/15/23 13:38 Resp 20 11/15/23 13:38 BP 178/98 11/15/23 13:38 Pulse Ox 96 11/15/23 13:38 FiO2 Intake & Output 11/14/23 11/15/23 11/15/23 18:59 06:59 18:59 Intake Total 500 Output Total 2 Balance 498 Weight 80 kg Intake: IV 500 Output: Estimated Blood Loss 2 Other: Voiding Method Urinal Urinal # Voids 3 - Labs CBC & Chem 7: 11/14/23 01:34 11/15/23 04:24 Labs: Abnormal Lab Results - Last 24 Hours (Table) 11/15/23 11/15/23 11/15/23 Range/Units 00:06 03:39 04:24 Sodium 132 L (135-145) mmol/L Chloride 92 L (96-109) mmol/L Anion Gap 12.30 H (4.00-12.00) mmol/L BUN 67.7 H (9.0-27.0) mg/dL Creatinine 8.5 A* (0.6-1.5) mg/dL Est GFR (CKD-EPI) 7 L (>=60) BUN/Creatinine Ratio 7.96 L (12.00-20.00) Ratio Glucose 211 H (70-110) mg/dL POC Glucose (mg/dL) 220 H 199 H (70-110) mg/dL Calcium 7.5 L (8.7-10.3) mg/dL Phosphorus 6.0 H (2.4-5.1) mg/dL 11/15/23 11/15/23 Range/Units 06:02 11:55 Sodium (135-145) mmol/L Chloride (96-109) mmol/L Anion Gap (4.00-12.00) mmol/L BUN (9.0-27.0) mg/dL Creatinine (0.6-1.5) mg/dL Est GFR (CKD-EPI) (>=60) BUN/Creatinine Ratio (12.00-20.00) Ratio Glucose (70-110) mg/dL POC Glucose (mg/dL) 193 H 182 H (70-110) mg/dL Calcium (8.7-10.3) mg/dL Phosphorus (2.4-5.1) mg/dL Microbiology - Last 24 Hours (Table) 11/14/23 01:15 Blood Culture - Preliminary Blood 11/14/23 01:00 Blood Culture - Preliminary Blood
--- NOTE | 2023-11-15 16:17 | P.PN ---
Subjective Progress Note Date: 11/15/23 Hospital Course: 58-year-old male with history of ESRD was on peritoneal dialysis, hypertension, diabetes, dyslipidemia presenting for recurrent peritonitis secondary to peritoneal dialysis. He claims that peritoneal dialysis was inserted back and February 2023 and has been having recurrent peritonitis and multiple bouts of antibiotics. He had a follow-up with his spinner continuous, peritoneal fluid culture was again positive for infection, and was told to come to the hospital for removal or PD catheter and permacath placement. On initial presentation, vital signs were within normal limits. Laboratory workup showed WBC 6.2, hemoglobin 10.7, potassium 3.1, sodium 131, creatinine 8.1, magnesium 1.8. Lipase 521. Patient was seen by nephrology, general surgery, and vascular surgery. Perit tamez dialysis catheter removed. On IV vancomycin, add hemodialysis line placed. Subjective: Seen and examined at bedside. No acute events overnight. Pertinent positives and negatives as discussed above, a complete review of systems was performed and all other systems are negative. Vitals Signs Reviewed. General: Nontoxic, no distress, appears at stated age Derm: Warm, dry Head: Atraumatic, normocephalic, symmetric Eyes: EOMI, no lid lag, anicteric sclera Mouth: No lip lesion, mucus membranes moist Cardiovascular: S1S2 reg, no murmur Lungs: CTA bilateral, no rhonchi, no rales, no accessory muscle use Abdominal: Soft, nontender to palpation, no guarding, no appreciable organomegaly Ext: No gross muscle atrophy, 1+ lower extremity edema, no contractures Neuro: CN II-XI grossly intact, no focal neuro deficits Psych: Alert, oriented, appropriate affect Data Reviewed Today: Pertinent Labs: Sodium 132, creatinine 8.5, potassium 4.1, magnesium 2 Imaging: No new imaging Assessment and Plan: Recurrent peritoneal dialysis catheter infection -Continue vancomycin dosing by pharmacy - Tylenol for fever as needed 650 mg p.o. -Surgery discontinued PD catheter End-stage renal disease on peritoneal dialysis Hyponatremia Hypokalemia - Nephrology following, likely dialysis today, on torsemide 40 daily Chronic anemia of chronic disease -No active bleeding - Continue to monitor Chronic conditions Diabetes mellitus patient on insulin pump -Continue with glucose blood monitoring ACHS Hypertension -Controlled -Continue with home medications losartan, hydralazine, Coreg Dyslipidemia - continue atorvastatin 20 DVT ppx: heparin sq Code status: FC Anticipated discharge place: Pending clinical course Anticipated discharge time: Pending clinical course ? Objective - Vital Signs Vital signs: Vital Signs Temp 98.1 F 11/15/23 13:38 Pulse 65 11/15/23 13:38 Resp 20 11/15/23 13:38 BP 178/98 11/15/23 13:38 Pulse Ox 96 11/15/23 13:38 FiO2 Intake & Output 11/14/23 11/15/23 11/15/23 18:59 06:59 18:59 Intake Total 500 Output Total 2 Balance 498 Weight 80 kg Intake: IV 500 Output: Estimated Blood Loss 2 Other: Voiding Method Urinal Urinal # Voids 3 - Labs CBC & Chem 7: 11/14/23 01:34 11/15/23 04:24 Labs: Abnormal Lab Results - Last 24 Hours (Table) 11/15/23 11/15/23 11/15/23 Range/Units 00:06 03:39 04:24 Sodium 132 L (135-145) mmol/L Chloride 92 L (96-109) mmol/L Anion Gap 12.30 H (4.00-12.00) mmol/L BUN 67.7 H (9.0-27.0) mg/dL Creatinine 8.5 A* (0.6-1.5) mg/dL Est GFR (CKD-EPI) 7 L (>=60) BUN/Creatinine Ratio 7.96 L (12.00-20.00) Ratio Glucose 211 H (70-110) mg/dL POC Glucose (mg/dL) 220 H 199 H (70-110) mg/dL Calcium 7.5 L (8.7-10.3) mg/dL Phosphorus 6.0 H (2.4-5.1) mg/dL 11/15/23 11/15/23 Range/Units 06:02 11:55 Sodium (135-145) mmol/L Chloride (96-109) mmol/L Anion Gap (4.00-12.00) mmol/L BUN (9.0-27.0) mg/dL Creatinine (0.6-1.5) mg/dL Est GFR (CKD-EPI) (>=60) BUN/Creatinine Ratio (12.00-20.00) Ratio Glucose (70-110) mg/dL POC Glucose (mg/dL) 193 H 182 H (70-110) mg/dL Calcium (8.7-10.3) mg/dL Phosphorus (2.4-5.1) mg/dL Microbiology - Last 24 Hours (Table) 11/14/23 01:15 Blood Culture - Preliminary Blood 11/14/23 01:00 Blood Culture - Preliminary Blood
[2023-11-15 17:37] LABS: Glucose,Whole Blood 237 mg/dL (70-110)
[2023-11-15 22:52] LABS: Hepatitis B Surface Antigen Nonreactive (Nonreactive)
[2023-11-15 23:20] LABS: Hepatitis B Surface AB- Quant 3.5 mIU/mL
[2023-11-16 00:58] LABS: Glucose,Whole Blood 371 mg/dL (70-110)
[2023-11-16] MEDS: hydrALAZINE HCL 20 MG/ML 1 ML VIAL IVP PRN (03:30)
[2023-11-16 05:23] LABS: Potassium 4.2 mmol/L (3.5-5.1)
[2023-11-16 05:24] LABS: African American GFR (CKD) 13 (>60 ml/min/1.73 sqM); Anion Gap 4 mmol/L; Blood Urea Nitrogen 40 mg/dL (9-20); Calcium 7.4 mg/dL (8.4-10.2); Carbon Dioxide 28 mmol/L (22-30); Chloride 96 mmol/L (98-107); Glucose 261 mg/dL (74-99); Non-African American GFR(CKD) 11 (>60 ml/min/1.73 sqM); Sodium 128 mmol/L (137-145)
[2023-11-16 05:25] LABS: Glucose,Whole Blood 305 mg/dL (70-110)
--- NOTE | 2023-11-16 11:08 | P.PN ---
Subjective Progress Note Date: 11/16/23 Patient seen in follow-up for ESRD. Recurrent peritonitis on PD with catheter removed 11/13. Tolerated HD yesterday without issues. Wants to advance diet. Vital signs are stable. General: No acute distress. HEENT: Head exam is unremarkable. LUNGS: No audible rhonchi or wheezes. HEART: Rate and Rhythm are regular. ABDOMEN: Nontender. EXTREMITITES: 1+ edema. Objective - Vital Signs Vital signs: Vital Signs Temp 97.2 F L 11/16/23 07:17 Pulse 65 11/16/23 08:00 Resp 17 11/16/23 08:00 BP 171/84 11/16/23 07:17 Pulse Ox 97 11/16/23 07:17 FiO2 Intake & Output 11/15/23 11/16/23 11/16/23 18:59 06:59 18:59 Intake Total 620 590 Output Total 2500 400 Balance -1880 190 Intake: Oral 120 590 Hemodialysis 500 Output: Urine 0 400 Hemodialysis 2500 Other: Voiding Method Urinal Urinal # Voids 1 - Labs CBC & Chem 7: 11/14/23 01:34 11/16/23 04:30 Labs: Abnormal Lab Results - Last 24 Hours (Table) 11/15/23 11/15/23 11/15/23 Range/Units 04: 11:55 17:37 Sodium 132 L (135-145) mmol/L Chloride 92 L (96-109) mmol/L Anion Gap 12.30 H (4.00-12.00) mmol/L BUN 67.7 H (9.0-27.0) mg/dL Creatinine 8.5 A* (0.6-1.5) mg/dL Est GFR (CKD-EPI) 7 L (>=60) BUN/Creatinine Ratio 7.96 L (12.00-20.00) Ratio Glucose 211 H (70-110) mg/dL POC Glucose (mg/dL) 182 H 237 H (70-110) mg/dL Calcium 7.5 L (8.7-10.3) mg/dL Phosphorus 6.0 H (2.4-5.1) mg/dL 11/16/23 11/16/23 11/16/23 Range/Units 00:56 04:30 05:23 Sodium 128 L (135-145) mmol/L Chloride 96 L (96-109) mmol/L Anion Gap (4.00-12.00) mmol/L BUN 40 H (9.0-27.0) mg/dL Creatinine 5.37 H (0.6-1.5) mg/dL Est GFR (CKD-EPI) (>=60) BUN/Creatinine Ratio (12.00-20.00) Ratio Glucose 261 H (70-110) mg/dL POC Glucose (mg/dL) 371 H 305 H (70-110) mg/dL Calcium 7.4 L (8.7-10.3) mg/dL Phosphorus (2.4-5.1) mg/dL Microbiology - Last 24 Hours (Table) 11/14/23 01:15 Blood Culture - Preliminary Blood 11/14/23 01:00 Blood Culture - Preliminary Blood Assessment and Plan Plan: Assessment: 1. End-stage renal disease maintained on peritoneal dialysis. 2. Refractory peritonitis status post treatment with intraperitoneal vancomycin and Fortaz as well as oral levofloxacin and antifungal. Repeat dialysate white cell count posttreatment was 1970 with fluid culture positive for gram-positive. PD catheter removed, Permcath placed 11/14. 3. Hypertension with chronic kidney disease. 4. Diabetes mellitus. 5. Chronic kidney disease mineral bone disease. Phosphorus 6.0, start binders with meals. 6. Hypokalemia from poor intake and PD losses. 7. Volume overload. Plan: HD yesterday, plan again tomorrow. Home antihypertensives resumed. Management of IV antibiotics per ID Maintain IV Vanco for now. Dose to be adjusted for renal function. Torsemide 40 mg qday. HD [facility] 3rd shift under ga Advance diet
[2023-11-16 12:24] LABS: Glucose,Whole Blood 144 mg/dL (70-110)
--- NOTE | 2023-11-16 13:16 | P.PN ---
Subjective Progress Note Date: 11/16/23 the patient is resting comfortably in his bed. He denies any significant abdominal pain. On exam vital signs appear stable. Abdomen is soft. Status post removal of peritoneal dialysis catheter. Patiently discharged home per the medical service. Objective - Vital Signs Vital signs: Vital Signs Temp 98.4 F 11/16/23 13:07 Pulse 65 11/16/23 13:07 Resp 18 11/16/23 13:07 BP 159/74 11/16/23 13:07 Pulse Ox 94 L 11/16/23 13:07 FiO2 Intake & Output 11/15/23 11/16/23 11/16/23 18:59 06:59 18:59 Intake Total 620 590 Output Total 2500 400 Balance -1880 190 Intake: Oral 120 590 Hemodialysis 500 Output: Urine 0 400 Hemodialysis 2500 Other: Voiding Method Urinal Urinal # Voids 1 - Labs CBC & Chem 7: 11/14/23 01:34 11/16/23 04:30 Labs: Abnormal Lab Results - Last 24 Hours (Table) 11/15/23 11/16/23 11/16/23 Range/Units 17:37 00:56 04:30 Sodium 128 L (137-145) mmol/L Chloride 96 L (98-107) mmol/L BUN 40 H (9-20) mg/dL Creatinine 5.37 H (0.66-1.25) mg/dL Glucose 261 H (74-99) mg/dL POC Glucose (mg/dL) 237 H 371 H (70-110) mg/dL Calcium 7.4 L (8.4-10.2) mg/dL 11/16/23 11/16/23 Range/Units 05:23 12:22 Sodium (137-145) mmol/L Chloride (98-107) mmol/L BUN (9-20) mg/dL Creatinine (0.66-1.25) mg/dL Glucose (74-99) mg/dL POC Glucose (mg/dL) 305 H 144 H (70-110) mg/dL Calcium (8.4-10.2) mg/dL Microbiology - Last 24 Hours (Table) 11/14/23 01:15 Blood Culture - Preliminary Blood 11/14/23 01:00 Blood Culture - Preliminary Blood
--- NOTE | 2023-11-16 14:36 | P.PN ---
Subjective Progress Note Date: 11/16/23 Hospital Course: 58-year-old male with history of ESRD was on peritoneal dialysis, hypertension, diabetes, dyslipidemia presenting for recurrent peritonitis secondary to peritoneal dialysis. He claims that peritoneal dialysis was inserted back and February 2023 and has been having recurrent peritonitis and multiple bouts of antibiotics. 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 On initial presentation, vital signs were within normal limits. Laboratory workup showed WBC 6.2, hemoglobin 10.7, potassium 3.1, sodium 131, creatinine 8.1, magnesium 1.8. Lipase 521. Patient was seen by nephrology, general surgery, and vascular surgery. Perit tamez dialysis catheter removed. On IV vancomycin, add hemodialysis line placed. He also following, final antibiotic recommendations per ID Subjective: Seen and examined at bedside. No acute events overnight. No new complaints. Pertinent positives and negatives as discussed above, a complete review of systems was performed and all other systems are negative. Vitals Signs Reviewed. General: Nontoxic, no distress, appears at stated age Derm: Warm, dry Head: Atraumatic, normocephalic, symmetric Eyes: EOMI, no lid lag, anicteric sclera Mouth: No lip lesion, mucus membranes moist Cardiovascular: S1S2 reg, no murmur Lungs: CTA bilateral, no rhonchi, no rales, no accessory muscle use Abdominal: Soft, nontender to palpation, no guarding, no appreciable organomegaly Ext: No gross muscle atrophy, 1+ lower extremity edema, no contractures Neuro: CN II-XI grossly intact, no focal neuro deficits Psych: Alert, oriented, appropriate affect Data Reviewed Today: Pertinent Labs: Sodium 128, creatinine 1.37, blood sugars range between 1 44-3 71 Imaging: No new imaging Assessment and Plan: Recurrent peritoneal dialysis catheter infection -Continue vancomycin dosing by pharmacy ID following, pending final antibiotic recommendations - Tylenol for fever as needed 650 mg p.o. -Surgery discontinued PD catheter, note reviewed, okay to be discharged from their standpoint End-stage renal disease on peritoneal dialysis Hyponatremia Hypokalemia - Nephrology following, repeat dialysis tomorrow, on torsemide 40 daily Outpatient hemodialysis Friday Chronic anemia of chronic disease -No active bleeding - Continue to monitor Chronic conditions Diabetes mellitus patient on insulin pump -Continue with glucose blood monitoring ACHS Hypertension -Controlled -Continue with home medications losartan, hydralazine, Coreg Dyslipidemia - continue atorvastatin 20 DVT ppx: heparin sq Code status: Anticipated discharge place: Pending clinical course Anticipated discharge time: Pending clinical course Objective - Vital Signs Vital signs: Vital Signs Temp 98.4 F 11/16/23 13:07 Pulse 65 11/16/23 13:07 Resp 18 11/16/23 13:07 BP 159/74 11/16/23 13:07 Pulse Ox 94 L 11/16/23 13:07 FiO2 Intake & Output 11/15/23 11/16/23 11/16/23 18:59 06:59 18:59 Intake Total 620 590 Output Total 2500 400 Balance -1880 190 Intake: Oral 120 590 Hemodialysis 500 Output: Urine 0 400 Hemodialysis 2500 Other: Voiding Method Urinal Urinal # Voids 1 - Labs CBC & Chem 7: 11/14/23 01:34 11/16/23 04:30 Labs: Abnormal Lab Results - Last 24 Hours (Table) 11/15/23 11/16/23 11/16/23 Range/Units 17:37 00:56 04:30 Sodium 128 L (137-145) mmol/L Chloride 96 L (98-107) mmol/L BUN 40 H (9-20) mg/dL Creatinine 5.37 H (0.66-1.25) mg/dL Glucose 261 H (74-99) mg/dL POC Glucose (mg/dL) 237 H 371 H (70-110) mg/dL Calcium 7.4 L (8.4-10.2) mg/dL 11/16/23 11/16/23 Range/Units 05:23 12:22 Sodium (137-145) mmol/L Chloride (98-107) mmol/L BUN (9-20) mg/dL Creatinine (0.66-1.25) mg/dL Glucose (74-99) mg/dL POC Glucose (mg/dL) 305 H 144 H (70-110) mg/dL Calcium (8.4-10.2) mg/dL Microbiology - Last 24 Hours (Table) 11/14/23 01:15 Blood Culture - Preliminary Blood 11/14/23 01:00 Blood Culture - Preliminary Blood
--- NOTE | 2023-11-16 16:38 | P.PN ---
Subjective Progress Note Date: 11/15/23 Principal diagnosis: Reason for follow-up is PD catheter associated peritonitis Patient is a 58-year-old male with a past medical history significant for diabetes mellitus hypertension hyperlipidemia end-stage renal disease PD catheter associated peritonitis failing outpatient therapy, the patient is status post PD catheter on 427 and the patient did have a placement of left ventricular by vascular surgery on 11/15/2023 On today's evaluation that is 11/15/2023, Patient is afebrile patient is currently on room air and denies having any shortness of breath, the patient denies any chest pain or cough, the patient denies any nausea vomiting did not have any abdominal pain and no diarrhea No CBC was done today creatinine is 8.5 blood cultures pending Objective - Vital Signs Vital signs: Vital Signs Temp 98.1 F 11/15/23 13:38 Pulse 65 11/15/23 13:38 Resp 20 11/15/23 13:38 BP 178/98 11/15/23 13:38 Pulse Ox 96 11/15/23 13:38 FiO2 Intake & Output 11/14/23 11/15/23 11/15/23 18:59 06:59 18:59 Intake Total 500 Output Total 2 Balance 498 Weight 80 kg Intake: IV 500 Output: Estimated Blood Loss 2 Other: Voiding Method Urinal Urinal # Voids 3 - Exam GENERAL DESCRIPTION: Middle-age male lying in bed in no distress RESPIRATORY SYSTEM: Unlabored breathing , decreased breath sounds at bases HEART: S1 S2 regular rate and rhythm , ABDOMEN: Soft , no tenderness EXTREMITIES: No edema feet - Labs CBC & Chem 7: 11/14/23 01:34 11/16/23 04:30 Labs: Abnormal Lab Results - Last 24 Hours (Table) 11/15/23 11/15/23 11/15/23 Range/Units 00:06 03:39 04:24 Sodium 132 L (135-145) mmol/L Chloride 92 L (96-109) mmol/L Anion Gap 12.30 H (4.00-12.00) mmol/L BUN 67.7 H (9.0-27.0) mg/dL Creatinine 8.5 A* (0.6-1.5) mg/dL Est GFR (CKD-EPI) 7 L (>=60) BUN/Creatinine Ratio 7.96 L (12.00-20.00) Ratio Glucose 211 H (70-110) mg/dL POC Glucose (mg/dL) 220 H 199 H (70-110) mg/dL Calcium 7.5 L (8.7-10.3) mg/dL Phosphorus 6.0 H (2.4-5.1) mg/dL 11/15/23 11/15/23 Range/Units 06:02 11:55 Sodium (135-145) mmol/L Chloride (96-109) mmol/L Anion Gap (4.00-12.00) mmol/L BUN (9.0-27.0) mg/dL Creatinine (0.6-1.5) mg/dL Est GFR (CKD-EPI) (>=60) BUN/Creatinine Ratio (12.00-20.00) Ratio Glucose (70-110) mg/dL POC Glucose (mg/dL) 193 H 182 H (70-110) mg/dL Calcium (8.7-10.3) mg/dL Phosphorus (2.4-5.1) mg/dL Microbiology - Last 24 Hours (Table) 11/14/23 01:15 Blood Culture - Preliminary Blood 11/14/23 01:00 Blood Culture - Preliminary Blood Assessment and Plan (1) Peritoneal dialysis catheter infection Current Visit: Yes Status: Acute Code(s): T85.71XA - INFECT/INFLM REACTION DUE TO PERITON DIALYSIS CATHETER, INIT SNOMED Code(s): 833866100 Plan: 1patient admitted to hospital with a PD catheter associated peritonitis failing outpatient vancomycin and Fortaz therapy patient is status post removal of PD catheter, tip has been sent for the culture blood cultures pending and the patient did have a hemodialysis catheter placement as of 11/15/2023 2-patient to continue with-vancomycin pharmacy to dose target trough of 15 while waiting for the workup to complete Dictation was produced using [employer] dictation software. please excuse any grammatical, word or spelling errors. Time with Patient: Less than 30
--- NOTE | 2023-11-16 16:39 | P.PN ---
Subjective Progress Note Date: 11/16/23 Principal diagnosis: Reason for follow-up is PD catheter associated peritonitis Patient is a 58-year-old male with a past medical history significant for diabetes mellitus hypertension hyperlipidemia end-stage renal disease PD catheter associated peritonitis failing outpatient therapy, the patient is status post PD catheter on 427 and the patient did have a placement of left ventricular by vascular surgery on 11/15/2023 On today's evaluation that is 11/16/2023, patient has been afebrile, patient is breathing comfortably and is currently on room air, patient denies having any significant cough no chest pain shortness of breath, patient denies nausea vomiting or diarrhea and no abdominal pain no CBC was done today creatinine is 5.37 blood cultures pending catheter tip cultures pending Objective - Vital Signs Vital signs: Vital Signs Temp 98.4 F 11/16/23 13:07 Pulse 65 11/16/23 13:07 Resp 18 11/16/23 13:07 BP 159/74 11/16/23 13:07 Pulse Ox 94 L 11/16/23 13:07 FiO2 Intake & Output 11/15/23 11/16/23 11/16/23 18:59 06:59 18:59 Intake Total 620 590 Output Total 2500 400 Balance -1880 190 Intake: Oral 120 590 Hemodialysis 500 Output: Urine 0 400 Hemodialysis 2500 Other: Voiding Method Urinal Urinal # Voids 1 - Exam GENERAL DESCRIPTION: Middle-age male lying in bed in no distress RESPIRATORY SYSTEM: Unlabored breathing , decreased breath sounds at bases HEART: S1 S2 regular rate and rhythm , ABDOMEN: Soft , no tenderness EXTREMITIES: No edema feet - Labs CBC & Chem 7: 11/14/23 01:34 11/16/23 04:30 Labs: Abnormal Lab Results - Last 24 Hours (Table) 11/15/23 11/16/23 11/16/23 Range/Units 17:37 00:56 04:30 Sodium 128 L (137-145) mmol/L Chloride 96 L (98-107) mmol/L BUN 40 H (9-20) mg/dL Creatinine 5.37 H (0.66-1.25) mg/dL Glucose 261 H (74-99) mg/dL POC Glucose (mg/dL) 237 H 371 H (70-110) mg/dL Calcium 7.4 L (8.4-10.2) mg/dL 11/16/23 11/16/23 Range/Units 05:23 12:22 Sodium (137-145) mmol/L Chloride (98-107) mmol/L BUN (9-20) mg/dL Creatinine (0.66-1.25) mg/dL Glucose (74-99) mg/dL POC Glucose (mg/dL) 305 H 144 H (70-110) mg/dL Calcium (8.4-10.2) mg/dL Microbiology - Last 24 Hours (Table) 11/14/23 01:15 Blood Culture - Preliminary Blood 11/14/23 01:00 Blood Culture - Preliminary Blood Assessment and Plan (1) Peritoneal dialysis catheter infection Current Visit: Yes Status: Acute Code(s): T85.71XA - INFECT/INFLM REACTION DUE TO PERITON DIALYSIS CATHETER, INIT SNOMED Code(s): 044525086 Plan: 1patient admitted to hospital with a PD catheter associated peritonitis failing outpatient vancomycin and Fortaz therapy patient is status post removal of PD catheter, tip has been sent for the culture blood cultures pending and the patient did have a hemodialysis catheter placement as of 11/15/2023 2-patient to continue with-vancomycin pharmacy to dose target trough of 15 while waiting for the culture to be finalized hopefully will be able to continue a ntibiotic through the dialysis so we do not have to place another line Dictation was produced using [employer] dictation software. please excuse any grammatical, word or spelling errors. Time with Patient: Less than 30
[2023-11-16 17:23] LABS: Glucose,Whole Blood 129 mg/dL (70-110)
[2023-11-16] MEDS: VANCOMYCIN 1,500 MG in SODIUM CHLORIDE 0.9% 500 ML 500 ML IVPB ONE (20:52)
[2023-11-16 23:41] LABS: Glucose,Whole Blood 121 mg/dL (70-110)
[2023-11-17 05:53] LABS: Glucose,Whole Blood 92 mg/dL (70-110)
[2023-11-17 10:41] LABS: Magnesium 2.1 mg/dL (1.5-2.4)
[2023-11-17 10:48] LABS: BUN/Creat Ratio 6.48 Ratio (12.00-20.00); Blood Urea Nitrogen 43.4 mg/dL (9.0-27.0); Calcium 7.5 mg/dL (8.7-10.3); Carbon Dioxide 27.9 mmol/L (21.6-31.8); Chloride 97 mmol/L (96-109); Glucose 71 mg/dL (70-110); Sodium 132 mmol/L (135-145)
[2023-11-17 11:44] LABS: Glucose,Whole Blood 145 mg/dL (70-110)
[2023-11-17 12:20] VITALS: TEMP 97.7
--- NOTE | 2023-11-17 12:28 | P.PN ---
Subjective Progress Note Date: 11/17/23 Principal diagnosis: Reason for follow-up is PD catheter associated peritonitis Patient is a 58-year-old male with a past medical history significant for diabetes mellitus hypertension hyperlipidemia end-stage renal disease PD catheter associated peritonitis failing outpatient therapy, the patient is status post PD catheter on 427 and the patient did have a placement of left ventricular by vascular surgery on 11/15/2023 On today's evaluation that is 11/17/2023,the patient denies any fever or any chills, patient is breathing comfortably on room air, the patient denies chest pain shortness of breath and no significant cough, patient denies abdominal pain, no nausea vomiting or diarrhea, feeling better. No CBC was done today his creatinine is 6.7 catheter tip culture with coagulase- negative staph blood culture negative Objective - Vital Signs Vital signs: Vital Signs Temp 97.7 F 11/17/23 11:47 Pulse 69 11/17/23 11:47 Resp 17 11/17/23 11:47 BP 172/82 11/17/23 11:47 Pulse Ox 97 11/17/23 11:47 FiO2 Intake & Output 11/16/23 11/17/23 11/17/23 18:59 06:59 18:59 Other: Voiding Method Urinal Urinal # Voids 1 3 1 # Bowel Movements 1 - Exam GENERAL DESCRIPTION: Middle-age male lying in bed in no distress RESPIRATORY SYSTEM: Unlabored breathing , decreased breath sounds at bases HEART: S1 S2 regular rate and rhythm , ABDOMEN: Soft , no tenderness EXTREMITIES: No edema feet - Labs CBC & Chem 7: 11/14/23 01:34 11/17/23 06:30 Labs: Abnormal Lab Results - Last 24 Hours (Table) 11/16/23 11/16/23 11/17/23 Range/Units 17:22 23:37 06:30 Sodium 132 L (135-145) mmol/L BUN 43.4 H (9.0-27.0) mg/dL Creatinine 6.7 H (0.6-1.5) mg/dL Est GFR (CKD-EPI) 9 L (>=60) BUN/Creatinine Ratio 6.48 L (12.00-20.00) Ratio POC Glucose (mg/dL) 129 H 121 H (70-110) mg/dL Calcium 7.5 L (8.7-10.3) mg/dL 11/17/23 Range/Units 11:42 Sodium (135-145) mmol/L BUN (9.0-27.0) mg/dL Creatinine (0.6-1.5) mg/dL Est GFR (CKD-EPI) (>=60) BUN/Creatinine Ratio (12.00-20.00) Ratio POC Glucose (mg/dL) 145 H (70-110) mg/dL Calcium (8.7-10.3) mg/dL Microbiology - Last 24 Hours (Table) 11/14/23 14:10 Catheter Tip Culture - Final Catheter Tip Coagulase Negative Staph 11/14/23 01:15 Blood Culture - Preliminary Blood 11/14/23 01:00 Blood Culture - Preliminary Blood Assessment and Plan (1) Peritoneal dialysis catheter infection Current Visit: Yes Status: Acute Code(s): T85.71XA - INFECT/INFLM REACTION DUE TO PERITON DIALYSIS CATHETER, INIT SNOMED Code(s): 425914997 Plan: 1patient admitted to hospital with a PD catheter associated peritonitis failing outpatient vancomycin and Fortaz therapy patient is status post removal of PD catheter, tip has been sent for the culture blood cultures pending and the patient did have a hemodialysis catheter placement as of 11/15/2023, peritonitis or catheter tip culture positive with coagulase-negative staph blood culture has been negative 2-patient to continue with-vancomycin pharmacy to dose target trough of 15 which can be done through the dialysis x 3-week on discharge discussed with admitting team Dictation was produced using [employer] dictation software. please excuse any grammatical, word or spelling errors. Time with Patient: Less than 30
--- NOTE | 2023-11-17 13:56 | P.PN ---
Subjective patient is seen for follow-up for end-stage renal disease. Scheduled for hemodialysis today. Plans for discharge today post hemodialysis. Tolerating oral intake. 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 - Labs CBC & Chem 7: 11/14/23 01:34 11/17/23 06:30 Labs: Abnormal Lab Results - Last 24 Hours (Table) 11/16/23 11/16/23 11/17/23 Range/Units 17:22 23:37 06:30 Sodium 132 L (135-145) mmol/L BUN 43.4 H (9.0-27.0) mg/dL Creatinine 6.7 H (0.6-1.5) mg/dL Est GFR (CKD-EPI) 9 L (>=60) BUN/Creatinine Ratio 6.48 L (12.00-20.00) Ratio POC Glucose (mg/dL) 129 H 121 H (70-110) mg/dL Calcium 7.5 L (8.7-10.3) mg/dL 11/17/23 Range/Units 11:42 Sodium (135-145) mmol/L BUN (9.0-27.0) mg/dL Creatinine (0.6-1.5) mg/dL Est GFR (CKD-EPI) (>=60) BUN/Creatinine Ratio (12.00-20.00) Ratio POC Glucose (mg/dL) 145 H (70-110) mg/dL Calcium (8.7-10.3) mg/dL Microbiology - Last 24 Hours (Table) 11/14/23 01:15 Blood Culture - Preliminary Blood 11/14/23 01:00 Blood Culture - Preliminary Blood 11/14/23 14:10 Catheter Tip Culture - Final Catheter Tip Coagulase Negative Staph Assessment and Plan Assessment: 1. End-stage renal disease maintained on peritoneal dialysis. 2. Refractory peritonitis status post treatment with intraperitoneal vancomycin and Fortaz as well as oral levofloxacin and antifungal. Repeat dialysate white cell count posttreatment was 1970 with fluid culture positive for gram-positive. PD catheter removed, Permcath placed 11/14. 3. Hypertension with chronic kidney disease. 4. Diabetes mellitus. 5. Chronic kidney disease mineral bone disease. Phosphorus 6.0, start binders with meals. 6. Hypokalemia from poor intake and PD losses. 7. Volume overload. improved Plan: patient can be discharged post hemodialysis today. Follow-up at outpatient dialysis on Friday schedule.
--- NOTE | 2023-11-17 14:36 | P.DS ---
Providers Date of admission: 11/14/23 06:31 Expected date of discharge: 11/17/23 Attending physician: Sherron Cho MD Consults: 11/14/23 04:01 Consult Physician Routine Consulting Provider: Juan Miguel Elliott Consult Reason/Comments: chronic renal failure/ peritoneal dialysis pt. Do you want consulting provider notified?: Yes 11/14/23 04:03 Consult Physician Routine Consulting Provider: Riley De La Rosa Consult Reason/Comments: CAPD catheter infection Do you want consulting provider notified?: Yes 11/14/23 11:16 Consult Physician Routine Consulting Provider: Osiris Rodriguez Consult Reason/Comments: IV abx for peritonitis Do you want consulting provider notified?: Yes 11/14/23 11:17 Consult Physician Routine Consulting Provider: Dylan Su Consult Reason/Comments: pcath placement Do you want consulting provider notified?: Yes Primary care physician: Devon Mattson Hospital Course: Discharge Diagnosis: Recurrent peritoneal dialysis catheter infection with peritonitis End-stage renal disease on peritoneal dialysis Hyponatremia Hypokalemia Chronic anemia of chronic disease Hospital Course: 58-year-old male with history of ESRD was on peritoneal dialysis, hypertension, diabetes, dyslipidemia presenting for recurrent peritonitis secondary to peritoneal dialysis. He claims that peritoneal dialysis was inserted back and February 2023 and has been having recurrent peritonitis and multiple bouts of antibiotics. 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 On initial presentation, vital signs were within normal limits. Laboratory workup showed WBC 6.2, hemoglobin 10.7, potassium 3.1, sodium 131, creatinine 8.1, magnesium 1.8. Lipase 521. Patient was seen by nephrology, general surgery, and vascular surgery. Peritoneal dialysis catheter removed. On IV vancomycin, add hemodialysis line placed. Patient will need IV vancomycin for 3 weeks with dialysis. Patient seen and examined at bedside. Vital signs reviewed and stable. General: Nontoxic, no distress, appears at stated age Derm: Warm, dry Head: Atraumatic, normocephalic, symmetric Eyes: EOMI, no lid lag, anicteric sclera Mouth: No lip lesion, mucus membranes moist Cardiovascular: S1S2 reg, no murmur Lungs: CTA bilateral, no rhonchi, no rales, no accessory muscle use Abdominal: Soft, nontender to palpation, no guarding, no appreciable organomegaly Ext: No gross muscle atrophy, no edema, no contractures Neuro: CN II-XI grossly intact, no focal neuro deficits Psych: Alert, oriented, appropriate affect A total of 33 minutes of time were spent preparing this complex discharge summary. Patient was discharged on 11/17/2023 at 1235. Patient Condition at Discharge: Stable Plan - Discharge Summary Discharge Rx Participant: No New Discharge Prescriptions: New Vancomycin See Rx Instructions .ROUTE .COMPLEX #9 each Torsemide [Demadex] 40 mg PO DAILY #90 tab Continue Insulin Aspart (For Pump) [NovoLOG (For Pump)] 0.01 unit SQ-PUMP CONTINUOUS carvediloL [Coreg] 25 mg PO BID FLUoxetine HCL [PROzac] 10 mg PO DAILY HYDROcodone/APAP 5-325MG [[place] 5-325] 1 tab PO Q6H Atorvastatin [Lipitor] 20 mg PO DAILY Folic Acid/Vit B Complex and C [Lilian-Marsha Tablet] 0.8 mg PO DAILY Losartan [Cozaar] 50 mg PO DAILY #60 tab hydrALAZINE HCL [Apresoline] 100 mg PO TID amLODIPine [Norvasc] 10 mg PO DAILY Ondansetron Odt [Zofran ODT] 4 mg PO Q6H PRN PRN Reason: Nausea And Vomiting Discontinued Torsemide [Demadex] 100 mg PO DAILY Discharge Medication List Insulin Aspart (For Pump) [NovoLOG (For Pump)] 0.01 unit SQ-PUMP CONTINUOUS 02/21/23 [History] FLUoxetine HCL [PROzac] 10 mg PO DAILY 07/14/23 [History] carvediloL [Coreg] 25 mg PO BID 07/14/23 [History] Losartan [Cozaar] 50 mg PO DAILY #60 tab 07/16/23 [Rx] Atorvastatin [Lipitor] 20 mg PO DAILY 11/14/23 [History] Folic Acid/Vit B Complex and C [Lilian-Marsha Tablet] 0.8 mg PO DAILY 11/14/23 [History] HYDROcodone/APAP 5-325MG [[place] 5-325] 1 tab PO Q6H 11/14/23 [History] Ondansetron Odt [Zofran ODT] 4 mg PO Q6H PRN 11/14/23 [History] amLODIPine [Norvasc] 10 mg PO DAILY 11/14/23 [History] hydrALAZINE HCL [Apresoline] 100 mg PO TID 11/14/23 [History] Torsemide [Demadex] 40 mg PO DAILY #90 tab 11/17/23 [Rx] Vancomycin See Rx Instructions .ROUTE .COMPLEX #9 each 11/17/23 [Rx] Follow up Appointment(s)/Referral(s): Riley De La Rosa MD [Medical Doctor] - 2 Weeks Sheba Shaffer MD [STAFF PHYSICIAN] - 1 Week Devon Mattson MD [Primary Care Provider] - 1-2 days Osiris Rodriguez MD [STAFF PHYSICIAN] - 2 Weeks Patient Instructions/Handouts: Dialysis Diet (DC) Activity/Diet/Wound Care/Special Instructions: Please go to dialysis mon, wed, fri. Discharge Disposition: HOME SELF-CARE
--- NOTE | 2023-11-17 14:38 | P.PN ---
Subjective Progress Note Date: 11/17/23 Principal diagnosis: Peritonitis Patient doing well today. Denies any significant pain at the dialysis catheter removal site. Tolerating diet. Cultures from the catheter showing coag negative staph. Objective - Vital Signs Vital signs: Vital Signs Temp 97.7 F 11/17/23 11:47 Pulse 69 11/17/23 11:47 Resp 17 11/17/23 11:47 BP 172/82 11/17/23 11:47 Pulse Ox 97 11/17/23 11:47 FiO2 Intake & Output 11/16/23 11/17/23 11/17/23 18:59 06:59 18:59 Other: Voiding Method Urinal Urinal # Voids 1 3 1 # Bowel Movements 1 - Exam Abdomen: Soft, nondistended, incision clean and dry, nontender - Labs CBC & Chem 7: 11/14/23 01:34 11/17/23 06:30 Labs: Abnormal Lab Results - Last 24 Hours (Table) 11/16/23 11/16/23 11/17/23 Range/Units 17:22 23:37 06:30 Sodium 132 L (135-145) mmol/L BUN 43.4 H (9.0-27.0) mg/dL Creatinine 6.7 H (0.6-1.5) mg/dL Est GFR (CKD-EPI) 9 L (>=60) BUN/Creatinine Ratio 6.48 L (12.00-20.00) Ratio POC Glucose (mg/dL) 129 H 121 H (70-110) mg/dL Calcium 7.5 L (8.7-10.3) mg/dL 11/17/23 Range/Units 11:42 Sodium (135-145) mmol/L BUN (9.0-27.0) mg/dL Creatinine (0.6-1.5) mg/dL Est GFR (CKD-EPI) (>=60) BUN/Creatinine Ratio (12.00-20.00) Ratio POC Glucose (mg/dL) 145 H (70-110) mg/dL Calcium (8.7-10.3) mg/dL Microbiology - Last 24 Hours (Table) 11/14/23 01:15 Blood Culture - Preliminary Blood 11/14/23 01:00 Blood Culture - Preliminary Blood 11/14/23 14:10 Catheter Tip Culture - Final Catheter Tip Coagulase Negative Staph Assessment and Plan Plan: Patient doing well after catheter removal Friday. Incision healing nicely. Continue antibiotics. Will sign off. Please reconsult if needed. Discussed with patient to follow-up in the office if there are any issues. Patient is agreeable.
[2023-11-17 17:57] VITALS: BP 167/88; PULSE 68; RESP 16
== END 2023-11-17 19:18 | disposition home or self-care (01) | DRG 907 ==
LOC: EC 20:24 → 4SSUR 11-14 06:31 → 5NMEDONC 11-14 16:35
PROVIDERS: ADMIT Internal Medicine; ATTEND Internal Medicine
PROC: 0WPG03Z Removal of Infusion Device from Peritoneal Cavity, Open Approach (ICD-10-PCS; principal; 2023-11-14 13:10)
PROC: 02HV33Z Insertion of Infusion Device into Superior Vena Cava, Percutaneous Approach (ICD-10-PCS; 2023-11-15)
PROC: 5A1D70Z Performance of Urinary Filtration, Intermittent, Less than 6 Hours Per Day (ICD-10-PCS; 2023-11-15 08:35)
PROC: 0JH63XZ Insertion of Tunneled Vascular Access Device into Chest Subcutaneous Tissue and Fascia, Percutaneous Approach (ICD-10-PCS; 2023-11-15 08:35)
DX: T85.71XA Infection and inflammatory reaction due to peritoneal dialysis catheter, initial encounter (principal); K65.9 Peritonitis, unspecified; N18.6 End stage renal disease; E87.1 Hypo-osmolality and hyponatremia; I12.0 Hypertensive chronic kidney disease with stage 5 chronic kidney disease or end stage renal disease; D63.1 Anemia in chronic kidney disease; E11.22 Type 2 diabetes mellitus with diabetic chronic kidney disease; E78.5 Hyperlipidemia, unspecified; E87.6 Hypokalemia; E87.70 Fluid overload, unspecified; M89.8X9 Other specified disorders of bone, unspecified site; Y83.8 Other surgical procedures as the cause of abnormal reaction of the patient, or of later complication, without mention of misadventure at the time of the procedure; Z96.41 Presence of insulin pump (external) (internal); Z79.4 Long term (current) use of insulin; Z79.899 Other long term (current) drug therapy; Z87.891 Personal history of nicotine dependence; Z99.2 Dependence on renal dialysis; Z91.041 Radiographic dye allergy status
CPT/HCPCS: 36415; 36558; 76937; 77001; 80048; 80053; 80202; 83605; 83690; 83735; 84100; 85025; 86706; 87040; 87070; 87075; 87340; 90935; 93970; 96365; 96366; 96372; 99285

== ENCOUNTER 2023-11-25 04:22 | Inpatient (IN) | payer BC ==
[2023-11-25 04:32] LABS: Glucose,Whole Blood 518 mg/dL (70-110)
[2023-11-25 04:57] LABS: Basophils % (A) 0 %; Eosinophils # (A) 0.2 k/uL (0-0.7); Eosinophils % (A) 1 %; HCT 28.8 % (39.0-53.0); HGB 9.3 gm/dL (13.0-17.5); Lymphocytes % (A) 9 %; MCH 32.2 pg (25.0-35.0); MCHC 32.2 g/dL (31.0-37.0); Macrocytosis Slight; Mean Platelet Volume 8.1; Monocytes # (A) 0.3 k/uL (0-1.0); Monocytes % (A) 3 %; Neutrophils # (A) 10.4 k/uL (1.3-7.7); Neutrophils % (A) 87 %; Platelet Count 328 k/uL (150-450); RBC 2.88 m/uL (4.30-5.90); RDW 15.2 % (11.5-15.5)
[2023-11-25 05:06] LABS: Partial Thromboplastin Time 24.7 sec (22.0-30.0); Prothrombin Time 10.7 sec (10.0-12.5)
[2023-11-25 05:18] LABS: ALT 21 U/L (4-49); AST 21 U/L (17-59); African American GFR (CKD) 9 (>60 ml/min/1.73 sqM); Albumin 2.9 g/dL (3.5-5.0); Alkaline Phosphatase 115 U/L (38-126); Anion Gap 13 mmol/L; Blood Urea Nitrogen 70 mg/dL (9-20); Calcium 7.8 mg/dL (8.4-10.2); Carbon Dioxide 30 mmol/L (22-30); Chloride 88 mmol/L (98-107); Non-African American GFR(CKD) 8 (>60 ml/min/1.73 sqM); Potassium 3.8 mmol/L (3.5-5.1); Sodium 131 mmol/L (137-145); Total Bilirubin 0.5 mg/dL (0.2-1.3); Total Protein 5.7 g/dL (6.3-8.2)
--- NOTE | 2023-11-25 05:30 | ED ---
Weakness HPI - General Source: patient, RN notes reviewed, old records reviewed Mode of arrival: wheelchair Limitations: no limitations - History of Present Illness MD Complaint: generalized weakness, lack of energy, difficulty walking -: days(s) Location: generalized Severity: severe Severity scale (1-10): 8 Consistency: constant Improves with: none Worsens with: none Context: recent illness Associated Symptoms: denies other symptoms <Thiago Winslow - Last Filed: 11/25/23 05:36> - General Source: patient, RN notes reviewed, old records reviewed Mode of arrival: wheelchair Limitations: no limitations <Bran Cole - Last Filed: 11/25/23 06:36> - General Chief complaint: Weakness Stated complaint: High blood sugar Time Seen by Provider: 11/25/23 04:54 - History of Present Illness Initial comments: This is a 58-year-old male to the ER today. This [place] evaluation of weakness weakness and abdominal pain with no recent significant sick contacts illness travel history. Patient recently had to go from having peritoneal dialysis secondary to peritonitis and infection to having a Temo catheter for dialysis. Patient has not had dialysis since last week coming in for evaluation of weakness he also recently ran out of insulin and said he has severely elevated blood sugar (Thiago Winslow) 58-year-old male presents emergency department with chief complaint of weakness, hyperglycemia. Patient states that he has not change his insulin pump site in a while and states that he gave himself a weeks worth of insulin over the weekend but his blood sugar remained high. He just changes site and it seems to be working now. Patient states he was on peritoneal dialysis but they remove his catheter because he had peritonitis. Patient states he is back on hemodialysis was supposed go yesterday but did not go he states he feels increasingly weak, and short of breath. He denies any chest pain no complaints of headache, back pain. (Bran Cole) - Related Data Home Medications Medication Instructions Recorded Confirmed Insulin Aspart (For Pump) [NovoLOG 0.01 unit SQ-PUMP CONTINUOUS 02/21/23 11/14/23 (For Pump)] FLUoxetine HCL [PROzac] 10 mg PO DAILY 07/14/23 11/14/23 carvediloL [Coreg] 25 mg PO BID 07/14/23 11/14/23 Atorvastatin [Lipitor] 20 mg PO DAILY 11/14/23 11/14/23 Folic Acid/Vit B Complex and C 0.8 mg PO DAILY 11/14/23 11/14/23 [Lilian-Marsha Tablet] HYDROcodone/APAP 5-325MG [[place] 1 tab PO Q6H 11/14/23 11/14/23 5-325] Ondansetron Odt [Zofran ODT] 4 mg PO Q6H PRN 11/14/23 11/14/23 amLODIPine [Norvasc] 10 mg PO DAILY 11/14/23 11/14/23 hydrALAZINE HCL [Apresoline] 100 mg PO TID 11/14/23 11/14/23 Previous Rx's Medication Instructions Recorded Losartan [Cozaar] 50 mg PO DAILY #60 tab 07/16/23 Torsemide [Demadex] 40 mg PO DAILY #90 tab 11/17/23 Vancomycin See Rx Instructions .ROUTE 11/17/23 .COMPLEX #9 each Allergies Allergy/AdvReac Type Severity Reaction Status Date / Time Iodinated Contrast Media Allergy Anaphylaxis Verified 11/14/23 12:55 Review of Systems ROS Other: All systems not noted in ROS Statement are negative. <Thiago Winslow - Last Filed: 11/25/23 05:36> ROS Other: All systems not noted in ROS Statement are negative. <Bran Cole - Last Filed: 11/25/23 06:36> ROS Statement: Those systems with pertinent positive or pertinent negative responses have been documented in the HPI. Past Medical History Past Medical History: Diabetes Mellitus, Dialysis, Hyperlipidemia, Hypertension, Renal Disease Additional Past Medical History / Comment(s): IDDM type I on insulin pump, DKA, chronic kidney disease, bilateral lower extremity edema. peritoneal dialysis History of Any Multi-Drug Resistant Organisms: None Reported Past Surgical History: No Surgical Hx Reported Additional Past Surgical History / Comment(s): R knee arthroscopy, circumcism, HD cath in chest Past Anesthesia/Blood Transfusion Reactions: No Reported Reaction Past Psychological History: No Psychological Hx Reported Smoking Status: Former smoker Past Alcohol Use History: None Reported Past Drug Use History: Marijuana - Past Family History Mother History Unknown: Yes Family Medical History: COPD Father Family Medical History: No Reported History Additional Family Medical History / Comment(s): Mother is healthy. <Thiago Winslow - Last Filed: 11/25/23 05:36> General Exam Limitations: no limitations General appearance: alert, in no apparent distress Head exam: Present: atraumatic, normocephalic, normal inspection Eye exam: Present: normal appearance, PERRL, EOMI. Absent: scleral icterus, conjunctival injection, periorbital swelling ENT exam: Present: normal exam, mucous membranes moist Neck exam: Present: normal inspection. Absent: tenderness, meningismus, lymphad enopathy Respiratory exam: Present: normal lung sounds bilaterally. Absent: respiratory distress, wheezes, rales, rhonchi, stridor Cardiovascular Exam: Present: regular rate, normal rhythm, normal heart sounds. Absent: systolic murmur, diastolic murmur, rubs, gallop, clicks GI/Abdominal exam: Present: soft, normal bowel sounds. Absent: distended, tenderness, guarding, rebound, rigid Extremities exam: Present: normal inspection, full ROM, normal capillary refill. Absent: tenderness, pedal edema, joint swelling, calf tenderness Back exam: Present: normal inspection Neurological exam: Present: alert, oriented X3, CN II-XII intact Psychiatric exam: Present: normal affect, normal mood Skin exam: Present: warm, dry, intact, normal color. Absent: rash <Thiago Winslow - Last Filed: 11/25/23 05:36> Course <Thiago Winslow - Last Filed: 11/25/23 05:36> Vital Signs 11/25/23 04:26 Temperature 98.1 F Pulse Rate 73 Respiratory 18 Rate Blood Pressure 179/83 O2 Sat by Pulse 95 Oximetry - Reevaluation(s) Reevaluation #1: 11/25/23 05:37 Medical records reviewed (Adrian Winslowalexia Slater) Reevaluation #4: Was pt. sent in by a medical professional or institution (, PA, REGULATORY ADMINISTRATOR, urgent care, hospital, or chcf...) When possible be specific @ -no Did you speak to anyone other than the patient for history (EMS, parent, family, police, friend...)? What history was obtained from this source @ -no Did you review nursing and triage notes (agree or disagree)? Why? @ -agree Are old charts reviewed (outside hosp., previous admission, EMS record, old EKG, old radiological studies, urgent care reports/EKG's, chcf records)? Report findings @ -yes Differential Diagnosis (chest pain, altered mental status, abdominal pain women, abdominal pain men, vaginal bleeding, weakness, fever, dyspnea, syncope, headache, dizziness, GI bleed, back pain, seizure, CVA, palpatations, mental health, musculoskeletal)? @ -prior EKG interpreted by me (3pts min.). @ -yes X-rays interpreted by me (1pt min.). @ -yes negative for acute disease CT interpreted by me (1pt min.). @ -no U/S interpreted by me (1pt. min.). @ -no What testing was considered but not performed or refused? (CT, X-rays, U/S, labs)? Why? @ -none What meds were considered but not given or refused? Why? @ -none Did you discuss the management of the patient with other professionals (professionals i.e. , PA, REGULATORY ADMINISTRATOR, lab, RT, psych nurse, social insurance analyst, medical artist, teacher, seal delivery vehicle officer, employment evaluator/case manager)? Give summary @ -no Was smoking cessation discussed for >3mins.? @ -no Was critical care preformed (if so, how long)? @ -no Were there social determinants of health that impacted care today? How? (Homelessness, low income, unemployed, alcoholism, drug addiction, transportation, low edu. Level, literacy, decrease access to med. care, snf, rehab)? @ -none Was there de-escalation of care discussed even if they declined (Discuss DNR or withdrawal of care, Hospice)? DNR status @ -no What co-morbidities impacted this encounter? (DM, HTN, Smoking, COPD, CAD, Cancer, CVA, ARF, Chemo, Hep., AIDS, mental health diagnosis, sleep apnea, morbid obesity)? @ -none Was patient admitted / discharged? Hospital course, mention meds given and route, prescriptions, significant lab abnormalities, going to OR and other pertinent info. @ - Undiagnosed new problem with uncertain prognosis? @ -no Drug Therapy requiring intensive monitoring for toxicity (Heparin, Nitro, Insulin, Cardizem)? @ -no Were any procedures done? @ -no Diagnosis/symptom? @ - Acute, or Chronic, or Acute on Chronic? @ -Acute Uncomplicated (without systemic symptoms) or Complicated (systemic symptoms)? @ -Complicated Side effects of treatment? @ -no Exacerbation, Progression, or Severe Exacerbation? @ -exacerbation Poses a threat to life or bodily function? How? (Chest pain, USA, PR, pneumonia, PE, COPD, DKA, ARF, appy, cholecystitis, CVA, Diverticulitis, Homicidal, Suicidal, threat to staff... and all critical care pts) @ -yes (Thiago Winslow) Reevaluation #5: Differential Weakness: Hypoglycemia, shock, sepsis, hyponatremia, anemia, infection, PR, ETOH, adverse medicine reaction, overdose, stroke, this is not meant to be an all-inclusive list. (Thiago Winslow) EKG Findings - EKG Comments: EKG Findings:: EKG performed at 4: 36 sinus rhythm with a rate of 73 MN 167 QRS 106 QT/QTc 444/470 - EKG Results: EKG: interpreted by ERMD <Bran Cole - Last Filed: 11/25/23 06:36> Medical Decision Making - Lab Data Result diagrams: 11/25/23 04:44 11/25/23 04:44 <Thiago Winslow - Last Filed: 11/25/23 05:36> - Lab Data Result diagrams: 11/25/23 04:44 11/25/23 04:44 <Bran Cole - Last Filed: 11/25/23 06:36> - Medical Decision Making Was pt. sent in by a medical professional or institution (RICK Rajan, REGULATORY ADMINISTRATOR, urgent care, hospital, or chcf...) When possible be specific @ -No Did you speak to anyone other than the patient for history (EMS, parent, family, police, friend...)? What history was obtained from this source @ -No Did you review nursing and triage notes (agree or disagree)? Why? @ -I reviewed and agree with nursing and triage notes Were old charts reviewed (outside hosp., previous admission, EMS record, old EKG, old radiological studies, urgent care reports/EKG's, chcf records)? Report findings @ -Reviewed prior labs CBC, inpatient records. Differential Diagnosis (chest pain, altered mental status, abdominal pain women, abdominal pain men, vaginal bleeding, weakness, fever, dyspnea, syncope, headache, dizziness, GI bleed, back pain, seizure, CVA, palpatations, mental health, musculoskeletal)? @ -Differential Weakness: Hypoglycemia, shock, sepsis, hyponatremia, anemia, infection, PR, ETOH, adverse medicine reaction, overdose, stroke, this is not meant to be an all-inclusive list. EKG interpreted by me (3pts min.). @ -As above X-rays interpreted by me (1pt min.). @ -None done CT interpreted by me (1pt min.). @ -None done U/S interpreted by me (1pt. min.). @ -None done What testing was considered but not performed or refused? (CT, X-rays, U/S, labs)? Why? @ -None What meds were considered but not given or refused? Why? @ -None Did you discuss the management of the patient with other professionals (professionals i.e. , PA, REGULATORY ADMINISTRATOR, lab, RT, psych nurse, social insurance analyst, medical artist, teacher, seal delivery vehicle officer, employment evaluator/case manager)? Give summary @ -Sound physician for admission secondary to elevated troponin, hyperglycemia requiring dialysis. Was smoking cessation discussed for >3mins.? @ -No Was critical care preformed (if so, how long)? @ -35 Were there social determinants of health that impacted care today? How? (Homelessness, low income, unemployed, alcoholism, drug addiction, transportation, low edu. Level, literacy, decrease access to med. care, snf, rehab)? @ -No Was there de-escalation of care discussed even if they declined (Discuss DNR or withdrawal of care, Hospice)? DNR status @ -No What co-morbidities impacted this encounter? (DM, HTN, Smoking, COPD, CAD, Ca ncer, CVA, ARF, Chemo, Hep., AIDS, mental health diagnosis, sleep apnea, morbid obesity)? @ -Diabetes renal failure Was patient admitted / discharged? Hospital course, mention meds given and route, prescriptions, significant lab abnormalities, going to OR and other pertinent info. @ -Admitted patient presented for hyperglycemia, weakness. Patient does have elevated troponin 0.1 patient does have moderate hyperglycemia greater than 500 patient did switch insulin pump site which blood sugars are improving. Patient will not receive IV fluids secondary to renal failure requiring dialysis. Wellington fox will have repeat troponin, cardiology evaluation and nephrology evaluation for dialysis Undiagnosed new problem with uncertain prognosis? @ -No Drug Therapy requiring intensive monitoring for toxicity (Heparin, Nitro, Insulin, Cardizem)? @ -heparin Were any procedures done? @ -No Diagnosis/symptom? @ -Weakness, NSTEMI, hyperglycemia Acute, or Chronic, or Acute on Chronic? @ -Acute Uncomplicated (without systemic symptoms) or Complicated (systemic symptoms)? @ -Complicated Side effects of treatment? @ -No Exacerbation, Progression, or Severe Exacerbation? @ -No Poses a threat to life or bodily function? How? (Chest pain, USA, PR, pneumonia, PE, COPD, DKA, ARF, appy, cholecystitis, CVA, Diverticulitis, Homicidal, Suicidal, threat to staff... and all critical care pts) @ -Yes ACS could cause cardiac arrest (Bran Cole) - Lab Data Lab Results 11/25/23 11/25/23 11/25/23 Range/Units 04:30 04:44 04:44 WBC 12.0 H (3.8-10.6) k/uL RBC 2.88 L (4.30-5.90) m/uL Hgb 9.3 L (13.0-17.5) gm/dL Hct 28.8 L (39.0-53.0) % MCV 100.0 (80.0-100.0) fL MCH 32.2 (25.0-35.0) pg MCHC 32.2 (31.0-37.0) g/dL RDW 15.2 (11.5-15.5) % Plt Count 328 (150-450) k/uL MPV 8.1 Neutrophils % 87 % Lymphocytes % 9 % Monocytes % 3 % Eosinophils % 1 % Basophils % 0 % Neutrophils # 10.4 H (1.3-7.7) k/uL Lymphocytes # 1.0 (1.0-4.8) k/uL Monocytes # 0.3 (0-1.0) k/uL Eosinophils # 0.2 (0-0.7) k/uL Basophils # 0.0 (0-0.2) k/uL Macrocytosis Slight PT 10.7 (10.0-12.5) sec INR 1.0 (<1.2) APTT 24.7 (22.0-30.0) sec Sodium (137-145) mmol/L Potassium (3.5-5.1) mmol/L Chloride (98-107) mmol/L Carbon Dioxide (22-30) mmol/L Anion Gap mmol/L BUN (9-20) mg/dL Creatinine (0.66-1.25) mg/dL Est GFR (CKD-EPI)AfAm (>60 ml/min/1.73 sqM) Est GFR (CKD-EPI)NonAf (>60 ml/min/1.73 sqM) Glucose (74-99) mg/dL POC Glucose (mg/dL) 518 H (70-110) mg/dL POC Glu Concrete Crusher Loader Operator ID Matt Morris Calcium (8.4-10.2) mg/dL Total Bilirubin (0.2-1.3) mg/dL AST (17-59) U/L ALT (4-49) U/L Alkaline Phosphatase (38-126) U/L Troponin I (0.000-0.034) ng/mL Total Protein (6.3-8.2) g/dL Albumin (3.5-5.0) g/dL Urine Color Urine Appearance (Clear) Urine pH (5.0-8.0) Ur Specific [place] (1.001-1.035) Urine Protein (Negative) Urine Glucose (UA) (Negative) Urine Ketones (Negative) Urine Blood (Negative) Urine Nitrite (Negative) Urine Bilirubin (Negative) Urine Urobilinogen (<2.0) mg/dL Ur Leukocyte Esterase (Negative) Urine RBC (0-5) /hpf Urine WBC (0-5) /hpf Acetone, Qual (Negative) 11/25/23 11/25/23 11/25/23 Range/Units 04:44 04:44 05:05 WBC (3.8-10.6) k/uL RBC (4.30-5.90) m/uL Hgb (13.0-17.5) gm/dL Hct (39.0-53.0) % MCV (80.0-100.0) fL MCH (25.0-35.0) pg MCHC (31.0-37.0) g/dL RDW (11.5-15.5) % Plt Count (150-450) k/uL MPV Neutrophils % % Lymphocytes % % Monocytes % % Eosinophils % % Basophils % % Neutrophils # (1.3-7.7) k/uL Lymphocytes # (1.0-4.8) k/uL Monocytes # (0-1.0) k/uL Eosinophils # (0-0.7) k/uL Basophils # (0-0.2) k/uL Macrocytosis PT (10.0-12.5) sec INR (<1.2) APTT (22.0-30.0) sec Sodium 131 L (137-145) mmol/L Potassium 3.8 (3.5-5.1) mmol/L Chloride 88 L (98-107) mmol/L Carbon Dioxide 30 (22-30) mmol/L Anion Gap 13 mmol/L BUN 70 H (9-20) mg/dL Creatinine 7.00 H (0.66-1.25) mg/dL Est GFR (CKD-EPI)AfAm 9 (>60 ml/min/1.73 sqM) Est GFR (CKD-EPI)NonAf 8 (>60 ml/min/1.73 sqM) Glucose 515 H* (74-99) mg/dL POC Glucose (mg/dL) (70-110) mg/dL POC Glu Concrete Crusher Loader Operator ID Calcium 7.8 L (8.4-10.2) mg/dL Total Bilirubin 0.5 (0.2-1.3) mg/dL AST 21 (17-59) U/L ALT 21 (4-49) U/L Alkaline Phosphatase 115 (38-126) U/L Troponin I 0.102 H* (0.000-0.034) ng/mL Total Protein 5.7 L (6.3-8.2) g/dL Albumin 2.9 L (3.5-5.0) g/dL Urine Color Colorless Urine Appearance Clear (Clear) Urine pH 7.5 (5.0-8.0) Ur Specific [place] 1.014 (1.001-1.035) Urine Protein 3+ H (Negative) Urine Glucose (UA) 4+ H (Negative) Urine Ketones Negative (Negative) Urine Blood Trace H (Negative) Urine Nitrite Negative (Negative) Urine Bilirubin Negative (Negative) Urine Urobilinogen <2.0 (<2.0) mg/dL Ur Leukocyte Esterase Negative (Negative) Urine RBC 1 (0-5) /hpf Urine WBC 1 (0-5) /hpf Acetone, Qual Negative (Negative) Critical Care Time Critical Care Time: Yes Total Critical Care Time: 35 <Bran Cole - Last Filed: 11/25/23 06:36> Disposition <Thiago Winslow - Last Filed: 11/25/23 05:36> Time of Disposition: 06:36 <Bran Cole - Last Filed: 11/25/23 06:36> Clinical Impression: ESRD (end stage renal disease), NSTEMI (non-ST elevated myocardial infarction), Weakness, Hyperglycemia Disposition: ADMITTED IP TO THIS HOSP Condition: Poor Referrals: Devon Mattson MD [Primary Care Provider] - 1-2 days
[2023-11-25 05:34] LABS: Glucose 515 mg/dL (74-99)
[2023-11-25 05:57] LABS: Appearance,Urine Clear (Clear); Bilirubin,Urine Negative (Negative); Blood,Urine Trace (Negative); Color,Urine Colorless; Glucose,Urine (UA) 4+ (Negative); Ketones,Urine Negative (Negative); Leukocyte Esterase,Urine Negative (Negative); Nitrite,Urine Negative (Negative); PH, Urine 7.5 (5.0-8.0); Protein,Urine 3+ (Negative); RBC,Urine 1 /hpf (0-5); Specific Gravity,Urine 1.014 (1.001-1.035); Urobilinogen,Urine <2.0 mg/dL (<2.0); WBC,Urine 1 /hpf (0-5)
[2023-11-25] MEDS ORDERED: NITROGLYCERIN SL TABS 0.4 MG TAB SUBLINGUAL PRN (06:32)
[2023-11-25] MEDS ORDERED: ONDANSETRON 4 MG/2 ML VIAL IVP PRN (06:35)
[2023-11-25] MEDS: ASPIRIN 81 MG PO STA (07:21)
[2023-11-25] MEDS: HEPARIN SOD,PORK IN 0.45% NACL 25,000 UNIT in 0.45% NACL 1 250ML.BAG IV SCH (07:30)
[2023-11-25] MEDS: HEPARIN SODIUM 1,000 UN/ML (10ML VL) IV ONE (07:31)
[2023-11-25 07:46] LABS: Glucose,Whole Blood 306 mg/dL (70-110)
[2023-11-25] MEDS ORDERED: DEXTROSE 50% SYRINGE 50 ML IVP PRN ×2 (07:57)
[2023-11-25] MEDS ORDERED: VANCOMYCIN IV PER PHARMACY 1 EACH MISC MISCELLANE PRN (08:00)
[2023-11-25] MEDS ORDERED: VANCOMYCIN 1,500 MG in SODIUM CHLORIDE 0.9% 500 ML 500 ML IVPB ONE (08:30)
[2023-11-25] MEDS: ATORVASTATIN 20 MG TAB PO SCH (09:42)
[2023-11-25] MEDS: carvediloL 12.5 MG TAB PO SCH (09:42)
[2023-11-25] MEDS: amLODIPine 10 MG TAB PO SCH (09:42)
[2023-11-25] MEDS: FOLIC ACID-VIT B COMPLEX-VIT C 1 CAP PO SCH (09:42)
[2023-11-25] MEDS: LOSARTAN 50 MG TAB PO SCH (09:42)
[2023-11-25] MEDS: FLUoxetine HCL 10 MG CAP PO SCH (09:42)
[2023-11-25] MEDS: TORSEMIDE 20 MG TAB PO SCH (09:42)
[2023-11-25] MEDS: hydrALAZINE HCL 50 MG TAB PO SCH (09:42)
[2023-11-25] MEDS: VANCOMYCIN 1,500 MG in SODIUM CHLORIDE 0.9% 500 ML 500 ML IVPB ONE (10:22)
[2023-11-25] MEDS: HYDROcodone/APAP 5-325MG 1 EACH TAB PO PRN (10:26)
--- NOTE | 2023-11-25 10:30 | P.HPIM ---
History of Present Illness H&P Date: 11/25/23 58 year old M with PMH of ESRD on PD, HTN, DM on insulin pump, HLD presents to the ED for weakness. Recent admission for peritonitis, catheter found to be infected, discontinued and Temo inserted for HD, discharged on Vancomycin with HD. Patient reports he has had no HD since Friday. Also reports stopping his insulin pump yesterday morning to charge it and has not been able to get a good control on his blood sugars since then despite not eating much. He reports profound weakness and anxiety. No abdominal pain, N/V, changes in urination or bowel habits. He denies any chest pain, SOB or palpitations. In the ED, he underwent extensive evalation. BP 179/83, HR 73, RR 18, 95% on RA. CBC, Coag panel, CMP performed significant for WBC 12, Hg 9.8, Hct 28.8, Na 131, Cl 88, BUN 70, Cr 7, glu 515, Ca 7.8, alb 2.9, total protein 5.7. Trop 0.102, 0.098. UA 3+ protein, 4+ glucose, trace blood. Negative acetone. EKG sinus rhythm, no ST elevation or depression, prolonged QT of 470. Patient was started on a heparin drip and admitted for further workup and management. General: non toxic, no distress, appears at stated age Derm: warm, dry Head: atraumatic, normocephalic, symmetric Eyes: EOMI, no lid lag, anicteric sclera Mouth: no lip lesion, mucus membranes moist Cardiovascular: S1S2 reg, no murmur, positive posterior tibial pulse bilateral, Lungs: CTA bilateral, no rhonchi, no rales , no accessory muscle use Abdominal: soft, nontender to palpation, no guarding, no appreciable organomega ly Ext: no gross muscle atrophy, no edema, no contractures Neuro: no focal neuro deficits Psych: Alert, oriented, appropriate affect Diabetes mellitus with hyperglycemia due to malfunctioning insulin pump: Restart insulin pump. ISS. Accuchecks ACHS. Hypoglycemic precautions. Troponin elevation likely leak from ESRD: Started on Heparin drip by ED. Status post ASA 325 mg PO x 1. ASA 81 mg PO QD. Coreg 25 mg PO BID. Lipitor 20 mg PO QD. Obtain Echo. Telemetry monitoring. Cardiology consult. Generalized weakness: PT and OT consult. Anxiety: Ativan 1 mg IV Q6H PRN. Recent peritoneal dialysis catheter infection: Restart Vancomycin dosed per pharmacy. Normocytic anemia: Appears at baseline. Likely due to AOCD. No obvious bleeding. Transfuse if Hg < 7. Hypertension: Coreg as above. Amlodipine 10 mg PO QD. Hydralazine 100 mg PO TID. Losartan 50 mg PO QD. Torsemide 20 mg PO QD. Dyslipidemia: Lipitor as above. CODE STATUS: FULL CODE DVT Prophylaxis: Heparin drip. GI Prophylaxis: Designated medical POA if patient is not able to make medical decisions for themselves: I have reviewed the following consultant dietitian notes: ED I have reviewed the results of the following tests: As above I have ordered the following tests: As above I have discussed the care of this patient with the following independent historian: I have independently interpreted the following test below: EKG I have discussed the management of this patient with the following physician: Past Medical History Past Medical History: Diabetes Mellitus, Dialysis, Hyperlipidemia, Hypertension, Renal Disease Additional Past Medical History / Comment(s): IDDM type I on insulin pump, DKA, chronic kidney disease, bilateral lower extremity edema. peritoneal dialysis History of Any Multi-Drug Resistant Organisms: None Reported Past Surgical History: No Surgical Hx Reported Additional Past Surgical History / Comment(s): R knee arthroscopy, circumcism, HD cath in chest Past Anesthesia/Blood Transfusion Reactions: No Reported Reaction Past Psychological History: No Psychological Hx Reported Smoking Status: Former smoker Past Alcohol Use History: None Reported Past Drug Use History: Marijuana - Past Family History Mother History Unknown: Yes Family Medical History: COPD Father Family Medical History: No Reported History Additional Family Medical History / Comment(s): Mother is healthy. Medications and Allergies Home Medications Medication Instructions Recorded Confirmed Type Insulin Aspart (For Pump) [NovoLOG 0.01 unit SQ-PUMP CONTINUOUS 02/21/23 11/25/23 History (For Pump)] FLUoxetine HCL [PROzac] 10 mg PO DAILY 07/14/23 11/25/23 History carvediloL [Coreg] 25 mg PO BID 07/14/23 11/25/23 History Losartan [Cozaar] 50 mg PO DAILY #60 tab 07/16/23 11/25/23 Rx Atorvastatin [Lipitor] 20 mg PO DAILY 11/14/23 11/25/23 History Folic Acid/Vit B Complex and C 0.8 mg PO DAILY 11/14/23 11/25/23 History [Lilian-Marsha Tablet] HYDROcodone/APAP 5-325MG [[place] 1 tab PO Q6H 11/14/23 11/25/23 History 5-325] Ondansetron Odt [Zofran ODT] 4 mg PO Q6H PRN 11/14/23 11/25/23 History amLODIPine [Norvasc] 10 mg PO DAILY 11/14/23 11/25/23 History hydrALAZINE HCL [Apresoline] 100 mg PO TID 11/14/23 11/25/23 History Torsemide [Demadex] 40 mg PO DAILY #90 tab 11/17/23 11/25/23 Rx Vancomycin See Rx Instructions .ROUTE 11/17/23 11/25/23 Rx .COMPLEX #9 each Allergies Allergy/AdvReac Type Severity Reaction Status Date / Time Iodinated Contrast Media Allergy Anaphylaxis Verified 11/25/23 07:20 Physical Exam Vitals: Vital Signs Temp Pulse Resp BP Pulse Ox 11/25/23 04:26 98.1 F 73 18 179/83 95 Intake and Output 11/24/23 11/25/23 11/25/23 22:59 06:59 14:59 Other: Weight 90.718 kg Results CBC & Chem 7: 11/25/23 04:44 11/25/23 04:44 Labs: Abnormal Lab Results - Last 24 Hours (Table) 11/25/23 11/25/23 11/25/23 Range/Units 04:30 04:44 04:44 WBC 12.0 H (3.8-10.6) k/uL RBC 2.88 L (4.30-5.90) m/uL Hgb 9.3 L (13.0-17.5) gm/dL Hct 28.8 L (39.0-53.0) % Neutrophils # 10.4 H (1.3-7.7) k/uL Sodium 131 L (137-145) mmol/L Chloride 88 L (98-107) mmol/L BUN 70 H (9-20) mg/dL Creatinine 7.00 H (0.66-1.25) mg/dL Glucose 515 H* (74-99) mg/dL POC Glucose (mg/dL) 518 H (70-110) mg/dL Calcium 7.8 L (8.4-10.2) mg/dL Troponin I (0.000-0.034) ng/mL Total Protein 5.7 L (6.3-8.2) g/dL Albumin 2.9 L (3.5-5.0) g/dL Urine Protein (Negative) Urine Glucose (UA) (Negative) Urine Blood (Negative) 11/25/23 11/25/23 11/25/23 Range/Units 04:44 05:05 07:09 WBC (3.8-10.6) k/uL RBC (4.30-5.90) m/uL Hgb (13.0-17.5) gm/dL Hct (39.0-53.0) % Neutrophils # (1.3-7.7) k/uL Sodium (137-145) mmol/L Chloride (98-107) mmol/L BUN (9-20) mg/dL Creatinine (0.66-1.25) mg/dL Glucose (74-99) mg/dL POC Glucose (mg/dL) (70-110) mg/dL Calcium (8.4-10.2) mg/dL Troponin I 0.102 H* 0.098 H* (0.000-0.034) ng/mL Total Protein (6.3-8.2) g/dL Albumin (3.5-5.0) g/dL Urine Protein 3+ H (Negative) Urine Glucose (UA) 4+ H (Negative) Urine Blood Trace H (Negative) 11/25/23 Range/Units 07:45 WBC (3.8-10.6) k/uL RBC (4.30-5.90) m/uL Hgb (13.0-17.5) gm/dL Hct (39.0-53.0) % Neutrophils # (1.3-7.7) k/uL Sodium (137-145) mmol/L Chloride (98-107) mmol/L BUN (9-20) mg/dL Creatinine (0.66-1.25) mg/dL Glucose (74-99) mg/dL POC Glucose (mg/dL) 306 H (70-110) mg/dL Calcium (8.4-10.2) mg/dL Troponin I (0.000-0.034) ng/mL Total Protein (6.3-8.2) g/dL Albumin (3.5-5.0) g/dL Urine Protein (Negative) Urine Glucose (UA) (Negative) Urine Blood (Negative)
[2023-11-25] MEDS: LORazepam 2 MG/ML INJ IV STA (11:21)
--- NOTE | 2023-11-25 11:23 | P.NPCON ---
History of Present Illness - Reason for Consult end stage renal disease - History of Present Illness Reason for consultation: End-stage renal disease History of present illness: Patient is a 58-year-old male seen in renal consultation for end-stage renal disease. Patient was seen and examined in the emergency room. He is maintained on hemodialysis on Friday schedule via permacath. Patient was on peritoneal dialysis and PD catheter was removed due to peritonitis. Patient is currently receiving IV vancomycin at the outpatient dialysis unit. Patient states he put his glucose monitor on charge yesterday. Patient states after that he noticed his blood sugars were quite elevated and was giving himself boluses of 10 units of insulin. Patient says last night he did not feel well. Patient also missed hemodialysis yesterday due to not feeling well. He denies any fever or chills. He does make urine. Does admit to edema. Denies chest pain or shortness of breath. Oral intake has been poor the last few days. Denies vomiting or diarrhea. Blood pressure currently stable. He is currently on IV heparin due to elevated troponins. Cardiology has been consulted. Vital signs are stable. General: No acute distress. HEENT: Head exam is unremarkable. LUNGS: No audible rhonchi or wheezes. HEART: Rate and Rhythm are regular. ABDOMEN: Nontender. EXTREMITITES: 1+ edema. Past Medical History Past Medical History: Diabetes Mellitus, Dialysis, Hyperlipidemia, Hypertension, Renal Disease Additional Past Medical History / Comment(s): IDDM type I on insulin pump, DKA, chronic kidney disease, bilateral lower extremity edema. peritoneal dialysis History of Any Multi-Drug Resistant Organisms: None Reported Past Surgical History: No Surgical Hx Reported Additional Past Surgical History / Comment(s): R knee arthroscopy, circumcism, HD cath in chest Past Anesthesia/Blood Transfusion Reactions: No Reported Reaction Past Psychological History: No Psychological Hx Reported Smoking Status: Former smoker Past Alcohol Use History: None Reported Past Drug Use History: Marijuana - Past Family History Mother History Unknown: Yes Family Medical History: COPD Father Family Medical History: No Reported History Additional Family Medical History / Comment(s): Mother is healthy. Medications and Allergies Home Medications Medication Instructions Recorded Confirmed Type Insulin Aspart (For Pump) [NovoLOG 0.01 unit SQ-PUMP CONTINUOUS 02/21/23 11/25/23 History (For Pump)] FLUoxetine HCL [PROzac] 10 mg PO DAILY 07/14/23 11/25/23 History carvediloL [Coreg] 25 mg PO BID 07/14/23 11/25/23 History Losartan [Cozaar] 50 mg PO DAILY #60 tab 07/16/23 11/25/23 Rx Atorvastatin [Lipitor] 20 mg PO DAILY 11/14/23 11/25/23 History Folic Acid/Vit B Complex and C 0.8 mg PO DAILY 11/14/23 11/25/23 History [Lilian-Marsha Tablet] HYDROcodone/APAP 5-325MG [[place] 1 tab PO Q6H 11/14/23 11/25/23 History 5-325] Ondansetron Odt [Zofran ODT] 4 mg PO Q6H PRN 11/14/23 11/25/23 History amLODIPine [Norvasc] 10 mg PO DAILY 11/14/23 11/25/23 History hydrALAZINE HCL [Apresoline] 100 mg PO TID 11/14/23 11/25/23 History Torsemide [Demadex] 40 mg PO DAILY #90 tab 11/17/23 11/25/23 Rx Vancomycin See Rx Instructions .ROUTE 11/17/23 11/25/23 Rx .COMPLEX #9 each Allergies Allergy/AdvReac Type Severity Reaction Status Date / Time Iodinated Contrast Media Allergy Anaphylaxis Verified 11/25/23 07:20 Physical Exam Vitals: Vital Signs Temp Pulse Resp BP Pulse Ox 11/25/23 10:42 97.6 F 63 18 135/71 90 L 11/25/23 04:26 98.1 F 73 18 179/83 95 Intake and Output 11/24/23 11/25/23 11/25/23 22:59 06:59 14:59 Other: Weight 90.718 kg Results - Lab Results Most recent lab results Calcium 7.8 mg/dL (8.4-10.2) L 11/25/23 04:44 11/25/23 04:44 11/25/23 04:44 Assessment and Plan Plan: Assessment: 1. End-stage renal disease maintained on hemodialysis on Friday schedule. 2. PD associated peritonitis status post removal of PD catheter and maintained on IV vancomycin outpatient. 3. Diabetes mellitus. 4. Hypertonic hyponatremia. Also component of hypervolemia. 5. Volume overload. 6. Anemia of chronic kidney disease. 7. NSTEMI maintained on heparin drip. Cardiology consulted. 8. Hypertension with chronic kidney disease. Stable. 9. Chronic kidney disease mineral bone disease. Plan: Hemodialysis today and again tomorrow. Check iron studies. Check phosphorus level. Consult ID for antibiotic management. Monitor vancomycin levels. Dose to be adjusted for renal function. Stressed compliance with medications and dialysis treatments multiple times. Life-threatening effects, including , of noncompliance have been discussed with the patient multiple times. Thank you for the consultation. I will continue to follow the patient with you during his hospital stay.
[2023-11-25 11:25] LABS: Glucose,Whole Blood 123 mg/dL (70-110)
[2023-11-25] MEDS: Insulin Aspart (For Pump) 100 UNIT/ML VIAL SQ-PUMP SCH (11:32)
[2023-11-25] MEDS: INSULIN ASPART (NovoLOG) 100 UNIT/ML VIAL SQ SCH (11:32)
[2023-11-25 15:12] LABS: % Iron Saturation 23.21 (15.00-50.00)
[2023-11-25 20:19] LABS: Glucose,Whole Blood 105 mg/dL (70-110)
[2023-11-25] MEDS: HEPARIN SODIUM 1,000 UN/ML (10ML VL) IV PRN (20:27)
--- NOTE | 2023-11-25 22:13 | P.CONS ---
History of Present Illness - Reason for Consult Consult date: 11/25/23 Antibiotics for peritonitis Requesting physician: Juan Miguel Elliott - Chief Complaint Elevated blood sugar weakness abdominal pain x few days - History of Present Illness Patient is a 58-year-old male with a past medical history significant for diabetes mellitus hypertension hyperlipidemia end-stage renal disease in this patient who was on peritoneal dialysis has developed PD catheter associated peritonitis requiring removal of his PD catheter with a catheter tip culture positive for coagulase-negative staph blood culture negative patient was started on hemodialysis patient was advised a 3-week course of IV vancomycin through the dialysis post discharge however the patient mention has gone for dialysis only once since he left the hospital from his last admission patient has not been brought back to the hospital for evaluated blood sugar along with profound weakness and anxiety patient denies high-grade fever or any chills patient denies having any headache or URI symptoms no chest pain shortness of the cough has been complaining of abdominal pain dull aching to sharp moderate intensity without any radiation nausea but no vomiting no diarrhea patient on presentation to the hospital was afebrile and no fever has been recorded subsequently patient was not tachycardic hypotensive or hypoxic and no need for supplemental oxygen patient did have a white count of 12,000 creatinine 7.0 liver enzymes are normal urine has been negative vancomycin random was 12.2 patient has been started on IV vancomycin infectious disease was consulted for further management of antibiotic therapy Review of Systems Positive point and negatives has been mentioned in the HPI, complete review of systems was performed and all other systems are negative Past Medical History Past Medical History: Diabetes Mellitus, Dialysis, Hyperlipidemia, Hypertension, Renal Disease Additional Past Medical History / Comment(s): IDDM type I on insulin pump, DKA, chronic kidney disease, bilateral lower extremity edema. peritoneal dialysis History of Any Multi-Drug Resistant Organisms: None Reported Past Surgical History: No Surgical Hx Reported Additional Past Surgical History / Comment(s): R knee arthroscopy, circumcism, HD cath in chest Past Anesthesia/Blood Transfusion Reactions: No Reported Reaction Past Psychological History: No Psychological Hx Reported Smoking Status: Former smoker Past Alcohol Use History: None Reported Past Drug Use History: Marijuana - Past Family History Mother History Unknown: Yes Family Medical History: COPD Father Family Medical History: No Reported History Additional Family Medical History / Comment(s): Mother is healthy. Medications and Allergies Home Medications Medication Instructions Recorded Confirmed Type Insulin Aspart (For Pump) [NovoLOG 0.01 unit SQ-PUMP CONTINUOUS 02/21/23 11/25/23 History (For Pump)] FLUoxetine HCL [PROzac] 10 mg PO DAILY 07/14/23 11/25/23 History carvediloL [Coreg] 25 mg PO BID 07/14/23 11/25/23 History Losartan [Cozaar] 50 mg PO DAILY #60 tab 07/16/23 11/25/23 Rx Atorvastatin [Lipitor] 20 mg PO DAILY 11/14/23 11/25/23 History Folic Acid/Vit B Complex and C 0.8 mg PO DAILY 11/14/23 11/25/23 History [Lilian-Marsha Tablet] HYDROcodone/APAP 5-325MG [[place] 1 tab PO Q6H 11/14/23 11/25/23 History 5-325] Ondansetron Odt [Zofran ODT] 4 mg PO Q6H PRN 11/14/23 11/25/23 History amLODIPine [Norvasc] 10 mg PO DAILY 11/14/23 11/25/23 History hydrALAZINE HCL [Apresoline] 100 mg PO TID 11/14/23 11/25/23 History Torsemide [Demadex] 40 mg PO DAILY #90 tab 11/17/23 11/25/23 Rx Vancomycin See Rx Instructions .ROUTE 11/17/23 11/25/23 Rx .COMPLEX #9 each Aspirin 81 mg PO DAILY 30 Days #30 tab 11/28/23 Rx Darbepoetin John [Aranesp] 40 mcg SQ Q7D each 11/28/23 Rx Allergies Allergy/AdvReac Type Severity Reaction Status Date / Time Iodinated Contrast Media Allergy Anaphylaxis Verified 11/25/23 07:20 Physical Exam Vitals: Vital Signs Temp Pulse Resp BP Pulse Ox 11/25/23 10:42 97.6 F 63 18 135/71 90 L 11/25/23 04:26 98.1 F 73 18 179/83 95 Intake and Output 11/24/23 11/25/23 11/25/23 22:59 06:59 14:59 Other: Weight 90.718 kg GENERAL DESCRIPTION: Middle-aged male lying in bed, no distress. No tachypnea or accessory muscle of respiration use. HEENT: Shows Pallor , no scleral icterus. Oral mucous membrane is dry. No pharyngeal erythema or thrush NECK: Trachea central, no thyromegaly. LUNGS: Unlabored breathing. Clear to auscultation anteriorly. No wheeze or crackle. HEART: S1, S2, regular rate and rhythm. No loud murmur ABDOMEN: Soft, mild tenderness EXTREMITIES: No edema of feet. SKIN: No rash, no masses palpable. NEUROLOGICAL: The patient is awake, alert, oriented x3, mood and affect normal. Results CBC & Chem 7: 11/28/23 09:03 11/28/23 09:03 Labs: Abnormal Lab Results - Last 24 Hours (Table) 11/25/23 11/25/23 11/25/23 Range/Units 04:30 04:44 04:44 WBC 12.0 H (3.8-10.6) k/uL RBC 2.88 L (4.30-5.90) m/uL Hgb 9.3 L (13.0-17.5) gm/dL Hct 28.8 L (39.0-53.0) % Neutrophils # 10.4 H (1.3-7.7) k/uL Sodium 131 L (137-145) mmol/L Chloride 88 L (98-107) mmol/L BUN 70 H (9-20) mg/dL Creatinine 7.00 H (0.66-1.25) mg/dL Glucose 515 H* (74-99) mg/dL POC Glucose (mg/dL) 518 H (70-110) mg/dL Calcium 7.8 L (8.4-10.2) mg/dL Troponin I (0.000-0.034) ng/mL Total Protein 5.7 L (6.3-8.2) g/dL Albumin 2.9 L (3.5-5.0) g/dL Urine Protein (Negative) Urine Glucose (UA) (Negative) Urine Blood (Negative) 11/25/23 11/25/23 11/25/23 Range/Units 04:44 05:05 07:09 WBC (3.8-10.6) k/uL RBC (4.30-5.90) m/uL Hgb (13.0-17.5) gm/dL Hct (39.0-53.0) % Neutrophils # (1.3-7.7) k/uL Sodium (137-145) mmol/L Chloride (98-107) mmol/L BUN (9-20) mg/dL Creatinine (0.66-1.25) mg/dL Glucose (74-99) mg/dL POC Glucose (mg/dL) (70-110) mg/dL Calcium (8.4-10.2) mg/dL Troponin I 0.102 H* 0.098 H* (0.000-0.034) ng/mL Total Protein (6.3-8.2) g/dL Albumin (3.5-5.0) g/dL Urine Protein 3+ H (Negative) Urine Glucose (UA) 4+ H (Negative) Urine Blood Trace H (Negative) 11/25/23 11/25/23 11/25/23 Range/Units 07:45 10:01 11:23 WBC (3.8-10.6) k/uL RBC (4.30-5.90) m/uL Hgb (13.0-17.5) gm/dL Hct (39.0-53.0) % Neutrophils # (1.3-7.7) k/uL Sodium (137-145) mmol/L Chloride (98-107) mmol/L BUN (9-20) mg/dL Creatinine (0.66-1.25) mg/dL Glucose (74-99) mg/dL POC Glucose (mg/dL) 306 H 123 H (70-110) mg/dL Calcium (8.4-10.2) mg/dL Troponin I 0.095 H* (0.000-0.034) ng/mL Total Protein (6.3-8.2) g/dL Albumin (3.5-5.0) g/dL Urine Protein (Negative) Urine Glucose (UA) (Negative) Urine Blood (Negative) Assessment and Plan (1) Peritonitis Current Visit: Yes Status: Acute Code(s): K65.9 - PERITONITIS, UNSPECIFIED SNOMED Code(s): 92896921 (2) Peritoneal dialysis catheter infection Current Visit: No Status: Acute Code(s): T85.71XA - INFECT/INFLM REACTION DUE TO PERITON DIALYSIS CATHETER, INIT SNOMED Code(s): 203384911 Plan: 1patient presented to hospital with hyperglycemia and this patient who was recently diagnosed with a PD catheter associated peritonitis status post removal of the peritoneal dialysis catheter with a catheter tip culture positive for coagulase-negative staph for the patient was supposed to get IV vancomycin through the dialysis apparently the patient has been some of her dialysis now with abdominal pain and elevated white count concerning for partially treated PD catheter associated peritonitis. 2vancomycin pharmacy to dose target trough of 15 while watching kidney function and Vanco trough closely 3check inflammatory markers any fever he will check blood culture We will follow on clinical condition and cultures to further adjust medication if needed Thank you for this consultation we will follow the patient along with you Dictation was produced using [employer] dictation software. please excuse any grammatical, word or spelling errors. Time with Patient: Greater than 30
[2023-11-26] MEDS: LORazepam 2 MG/ML INJ IV PRN (01:48)
[2023-11-26] MEDS: BENZOCAINE/MENTHOL LOZENG 1 EACH LOZENGE MUCOUS MEM PRN (01:48)
[2023-11-26 03:13] LABS: Phosphorus 3.6 mg/dL (2.5-4.5)
[2023-11-26 06:37] LABS: Glucose,Whole Blood 92 mg/dL (70-110)
--- NOTE | 2023-11-26 08:12 | XR ---
EXAMINATION TYPE: XR chest 1V portable DATE OF EXAM: 11/26/2023 COMPARISON: 07/14/2023 HISTORY: Hypoxia TECHNIQUE: Single frontal view of the chest is obtained. FINDINGS: Dialysis catheter the tip overlying the SVC. Diffuse interstitial pattern with bilateral c onsolidation and small effusion. Heart is enlarged. Atherosclerotic change aorta. Arthropathy of the shoulder. Degenerative change of the spine. IMPRESSION: Correlate for CHF.
--- NOTE | 2023-11-26 08:36 | P.CRDCN ---
History of Present Illness Consult date: 11/26/23 Reason for Consult (text): NSTEMI History of present illness: History of present illness: This is a 58-year-old male patient of Dr. Clare Means with past medical history of end-stage renal disease on peritoneal dialysis, mitral and aortic regurgitation, hypertension, dyslipidemia. We have been asked to evaluate the patient for non- ST elevated myocardial infarction. Patient gives history that he presented to the hospital because he was having nausea and sweats but doing better today and is ready to go home. He denies having any chest pain no chest pressure no shortness of breath. He states his blood sugars have been out of control and he presented with a blood sugar in the 500s. Patient has been started on a heparin drip. He states he had a cardiac catheterization done at least 15 years ago and this was normal. He also gives history of having peritonitis in July but no symptoms of that at this time. He states he had a little bit of abdominal pain last night but none now and no lower extremity edema. Patient is seen today in the emergency center waiting for bed on the cardiac stepdown unit. EKG sinus rhythm with nonspecific ST changes Chest x-ray: Correlate for CHF WBC 12, hemoglobin 9.3, platelet count 328. INR 1. Sodium 131, potassium 3.8, chloride 88, CO2 30, BUN 70 creatinine 7. Glucose 515. Calcium 7.8, phosphorus 3.6. Iron 39, TIBC 168. Transferrin 120, ferritin 1288. Iron saturation 23. Troponins 0.102, 0.098, 0.095. Urinalysis protein 3+, glucose 4+. Acetone negative. Home cardiac medications: Amlodipine 10 mg daily, atorvastatin 20 mg daily, Coreg 25 mg twice daily, hydralazine 100 mg 3 times daily, losartan 50 mg daily, torsemide 40 mg daily. Echocardiogram performed 11/18/2023 in the office revealed EF 50 to 55%, severe concentric left ventricular hypertrophy. Mild aortic regurgitation. Moderate mitral regurgitation. Mild tricuspid regurgitation. Mild to moderate pulmonic regurgitation. Lexiscan Cardiolite stress test performed in the office on 03/21/2022 was negative stress by EKG criteria and normal myocardial perfusion and function. Review Of Systems: At the time of my exam: CONSTITUTIONAL: Denies fever or chills. HEENT: Denies blurred vision, vision changes, or eye pain. Denies hemoptysis CARDIOVASCULAR: Denies chest pain. Denies orthopnea. Denies PND. Denies palpitations RESPIRATORY: Denies shortness of breath. GASTROINTESTINAL: Denies abdominal pain. Denies nausea or vomiting. HEMATOLOGIC: Denies bleeding disorders. GENITOURINARY: Denies any blood in urine. SKIN: Denies pruitis. Denies rash. Physical examination: Gen: This is a 58-year-old male in no acute distress VS: reviewed, blood pressure 165/97, heart rate 67, pulse ox 99% on room air HEENT: Head is atraumatic, normocephalic. Pupils equal, round. Sclerae is anicteric. NECK: Supple. No JVD. LUNGS: Clear to auscultation. No wheezes or rhonchi. No intercostal retractions. HEART: Regular rate and rhythm. No murmur. ABDOMEN: Soft No tenderness. EXTREMITIES: No pedal edema. No calf tenderness. NEUROLOGICAL: Patient is awake, alert and oriented x3. Assessment: Hyperglycemia Elevated troponins of unclear etiology, most likely due to renal failure Acute coronary syndrome ruled out End-stage renal disease on peritoneal dialysis with recent episode of peritonitis Mitral and aortic regurgitation Hypertension Dyslipidemia Plan: Resume patient's home cardiac medications Increase losartan to 100 mg daily Obtain 2-D echocardiogram and Doppler study report If echocardiogram is unchanged from previous, patient is cleared for discharge from cardiology and may follow-up with Dr. Clare Means in 1 to 2 weeks. Thank you kindly for this consultation. Nurse practitioner note has been reviewed, I agree with documented findings and plan of care. Patient was seen and examined. Past Medical History Past Medical History: Diabetes Mellitus, Dialysis, Hyperlipidemia, Hypertension, Renal Disease Additional Past Medical History / Comment(s): IDDM type I on insulin pump, DKA, chronic kidney disease, bilateral lower extremity edema. peritoneal dialysis History of Any Multi-Drug Resistant Organisms: None Reported Past Surgical History: No Surgical Hx Reported Additional Past Surgical History / Comment(s): R knee arthroscopy, circumcism, HD cath in chest Past Anesthesia/Blood Transfusion Reactions: No Reported Reaction Past Psychological History: No Psychological Hx Reported Smoking Status: Former smoker Past Alcohol Use History: None Reported Past Drug Use History: Marijuana - Past Family History Mother History Unknown: Yes Family Medical History: COPD Father Family Medical History: No Reported History Additional Family Medical History / Comment(s): Mother is healthy. Medications and Allergies Home Medications Medication Instructions Recorded Confirmed Type Insulin Aspart (For Pump) [NovoLOG 0.01 unit SQ-PUMP CONTINUOUS 02/21/2302/10 History (For Pump)] FLUoxetine HCL [PROzac] 10 mg PO DAILY 07/14/23 11/25/23 History carvediloL [Coreg] 25 mg PO BID 07/14/23 11/25/23 History Losartan [Cozaar] 50 mg PO DAILY #60 tab 07/16/23 11/25/23 Rx Atorvastatin [Lipitor] 20 mg PO DAILY 11/14/23 11/25/23 History Folic Acid/Vit B Complex and C 0.8 mg PO DAILY 11/14/23 11/25/23 History [Lilian-Marsha Tablet] HYDROcodone/APAP 5-325MG [Oneill 1 tab PO Q6H 11/14/23 11/25/23 History 5-325] Ondansetron Odt [Zofran ODT] 4 mg PO Q6H PRN 11/14/23 11/25/23 History amLODIPine [Norvasc] 10 mg PO DAILY 11/14/23 11/25/23 History hydrALAZINE HCL [Apresoline] 100 mg PO TID 11/14/23 11/25/23 History Torsemide [Demadex] 40 mg PO DAILY #90 tab 11/17/23 11/25/23 Rx Vancomycin See Rx Instructions .ROUTE 11/17/23 11/25/23 Rx .COMPLEX #9 each Allergies Allergy/AdvReac Type Severity Reaction Status Date / Time Iodinated Contrast Media Allergy Anaphylaxis Verified 11/25/23 07:20 Physical Exam Vitals: Vital Signs Temp Pulse Pulse Resp BP BP Pulse Ox 11/26/23 05:51 97.8 F 67 19 165/97 99 11/26/23 04:03 65 16 160/91 96 11/26/23 03:13 67 13 157/74 96 11/26/23 00:00 98.2 F 62 17 147/79 97 11/25/23 20:06 59 L 20 148/95 90 L 11/25/23 18:29 97.6 F 60 155/75 11/25/23 18:16 63 18 168/94 92 L 11/25/23 15:00 63 18 171/101 92 L 11/25/23 13:00 62 18 160/87 91 L 11/25/23 11:00 63 18 169/96 90 L 11/25/23 10:42 97.6 F 63 18 135/71 90 L Intake and Output 11/25/23 11/26/23 11/26/23 22:59 06:59 14:59 Intake Total 628.833 85.867 Output Total 1999 Balance -1371.167 85.867 Intake: Intake, IV Titration 128.833 85.867 Amount Heparin Sod,Pork in 0.45% 128.833 85.867 NaCl 25,000 unit In 0.45 % NaCl 1 250ml.bag @ 11. 023 UNITS/KG/HR 10 mls/hr IV .Q24H [facility] Rx#: [id number] Hemodialysis 500 Output: Hemodialysis 1999 Results 11/25/23 04:44 11/25/23 04:44 Cardiac Enzymes 11/25/23 11/25/23 Range/Units 07:09 10:01 Troponin I 0.098 H* 0.095 H* (0.000-0.034) ng/mL Coagulation 11/25/23 11/25/23 11/26/23 Range/Units 12:07 18:32 00:45 APTT 27.9 27.2 36.8 H (22.0-30.0) sec 11/26/23 Range/Units 02:43 APTT 29.8 (22.0-30.0) sec Current Medications Generic Name Dose Route Start Last Admin Trade Name Freq PRN Reason Stop Dose Admin Hydrocodone Bitart/Acetaminophen 1 each 11/25/23 07:55 11/26/23 05:33 Hydrocodone/Apap 5-325mg 1 Each Tab PO 1 each Q6H PRN Administration Breakthrough Pain Amlodipine Besylate 10 mg 11/25/23 09:00 11/25/23 09:42 Amlodipine 10 Mg Tab PO 10 mg DAILY [facility] Administration Aspirin 81 mg 11/26/23 09:00 Aspirin 81 Mg PO DAILY [facility] Atorvastatin Calcium 20 mg 11/25/23 09:00 11/25/23 09:42 Atorvastatin 20 Mg Tab PO 20 mg DAILY [facility] Administration Benzocaine/Menthol 1 each 11/25/23 22:47 11/26/23 05:36 Benzocaine/Menthol Lozeng 1 Each Lozenge MUCOUS MEM 1 each Q4HR PRN Administration Cough Carvedilol 25 mg 11/25/23 09:00 11/25/23 18:11 Carvedilol 12.5 Mg Tab PO 25 mg BID-W/MEALS [facility] Administration Dextrose/Water 50 ml 11/25/23 07:57 Dextrose 50% Syringe 50 Ml IVP PER PROTOCOL PRN Hypoglycemia Protocol Dextrose/Water 25 ml 11/25/23 07:57 Dextrose 50% Syringe 50 Ml IVP PER PROTOCOL PRN Hypoglycemia Protocol Fluoxetine HCl 10 mg 11/25/23 09:00 11/25/23 09:42 Fluoxetine Hcl 10 Mg Cap PO 10 mg DAILY [facility] Administration Heparin Sodium (Porcine) 0 unit 11/25/23 06:32 11/25/23 20:27 Heparin Sodium 1,000 Un/Ml (10ml Vl) IV 4,550 unit Q6HR PRN Administration Low PTT Protocol Hydralazine HCl 100 mg 11/25/23 09:00 11/25/23 20:28 Hydralazine Hcl 50 Mg Tab PO 100 mg TID [facility]UKUND Administration Heparin Sodium/Sodium Chloride 250 mls @ 10 mls/hr 11/25/23 06:45 11/26/23 03:08 25,000 unit/ Sodium Chloride IV 16.023 units/kg/hr .Q24H [facility] 14.536 mls/hr Administration Protocol 11.023 UNITS/KG/HR Insulin Aspart 0 unit 11/25/23 12:30 11/26/23 07:19 Insulin Aspart (Novolog) 100 Unit/Ml Vial SQ Not Given ACHS MUKUND Protocol Insulin Aspart 0.01 unit 11/25/23 10:30 11/25/23 11:32 Insulin Aspart (For Pump) 100 Unit/Ml Vial SQ-PUMP Not Given CONTINUOUS M[facility]UND Lorazepam 1 mg 11/25/23 10:30 11/26/23 01:48 Lorazepam 2 Mg/Ml Inj IV 1 mg Q4HR PRN Administration Anxiety Losartan Potassium 50 mg 11/25/23 09:00 11/25/23 09:42 Losartan 50 Mg Tab PO 50 mg DAILY [facility] Administration Miscellaneous Information 1 each 11/25/23 08:00 Vancomycin Iv Per Pharmacy 1 Each Misc MISCELLANE DIRECTED PRN Per Protocol Protocol Multivit/Ca Carb/B Cmplx/FA/Prenat 1 each 11/25/23 09:00 11/25/23 09:42 Folic Acid-Vit B Complex-Vit C 1 Cap PO 1 each DAILY [facility]UN[facility] Administration Nitroglycerin 0.4 mg 11/25/23 06:32 Nitroglycerin Sl Tabs 0.4 Mg Tab SUBLINGUAL Q5M PRN Chest Pain Ondansetron HCl 4 mg 11/25/23 06:35 Ondansetron 4 Mg/2 Ml Vial IVP Q6HR PRN Nausea And Vomiting Torsemide 40 mg 11/25/23 09:00 11/25/23 09:42 Torsemide 20 Mg Tab PO 40 mg DAILY M[facility]UND Administration Intake and Output 11/25/23 11/26/23 11/26/23 22:59 06:59 14:59 Intake Total 628.833 85.867 Output Total 1999 Balance -1371.167 85.867 Intake: Intake, IV Titration 128.833 85.867 Amount Heparin Sod,Pork in 0.45% 128.833 85.867 NaCl 25,000 unit In 0.45 % NaCl 1 250ml.bag @ 11. 023 UNITS/KG/HR 10 mls/hr IV .Q24H [facility] Rx#: [id number] Hemodialysis 500 Output: Hemodialysis 199911/25/23 04:44 11/25/23 04:44
[2023-11-26] MEDS ORDERED: ASPIRIN 325 MG TAB PO SCH (09:00)
[2023-11-26] MEDS: LOSARTAN 50 MG TAB PO SCH (09:33)
[2023-11-26] MEDS: VANCOMYCIN 1,500 MG in SODIUM CHLORIDE 0.9% 500 ML 500 ML IVPB ONE (09:33)
[2023-11-26] MEDS: ASPIRIN 81 MG PO SCH (09:33)
[2023-11-26 09:46] LABS: HCT 27.8 % (39.0-53.0); HGB 8.7 gm/dL (13.0-17.5); MCH 31.5 pg (25.0-35.0); MCHC 31.4 g/dL (31.0-37.0); MCV 100.1 fL (80.0-100.0); Macrocytosis Slight; Mean Platelet Volume 8.2; Platelet Count 273 k/uL (150-450); RBC 2.78 m/uL (4.30-5.90); WBC 6.7 k/uL (3.8-10.6)
[2023-11-26 10:03] LABS: African American GFR (CKD) 14 (>60 ml/min/1.73 sqM); Anion Gap 2 mmol/L; Blood Urea Nitrogen 35 mg/dL (9-20); Calcium 7.5 mg/dL (8.4-10.2); Carbon Dioxide 35 mmol/L (22-30); Chloride 95 mmol/L (98-107); Glucose 77 mg/dL (74-99); Non-African American GFR(CKD) 12 (>60 ml/min/1.73 sqM); Potassium 3.6 mmol/L (3.5-5.1); Sodium 132 mmol/L (137-145)
--- NOTE | 2023-11-26 10:24 | P.PN ---
Subjective Progress Note Date: 11/26/23 58 year old M with PMH of ESRD on PD, HTN, DM on insulin pump, HLD presents to the ED for weakness. Recent admission for peritonitis, catheter found to be infected, discontinued and Temo inserted for HD, discharged on Vancomycin with HD. Patient reports he has had no HD since Friday. Also reports stopping his insulin pump yesterday morning to charge it and has not been able to get a good control on his blood sugars since then despite not eating much. He reports profound weakness and anxiety. No abdominal pain, N/V, changes in urination or bowel habits. He denies any chest pain, SOB or palpitations. In the ED, he underwent extensive evalation. BP 179/83, HR 73, RR 18, 95% on RA. CBC, Coag panel, CMP performed significant for WBC 12, Hg 9.8, Hct 28.8, Na 131, Cl 88, BUN 70, Cr 7, glu 515, Ca 7.8, alb 2.9, total protein 5.7. Trop 0.102, 0.098. UA 3+ protein, 4+ glucose, trace blood. Negative acetone. EKG sinus rhythm, no ST elevation or depression, prolonged QT of 470. Patient was started on a heparin drip and admitted for further workup and management. Started on heparin drip. Troponins 0.102, 0.098, 0.095 trending down. Echocardiogram ordered. Cardiology consulted. Hyperglycemia resolved with restarting insulin pump with additional sliding scale. Nephrology consulted to resume HD (11/24 and 11/25). ID consulted, restarted on Vancomycin. 11/25 Patient was seen and examined. No acute events overnight. Feeling well today. POC glucose 92-518 over the past 24H. Heparin drip discontinued. CBC Hg 8.7 Hct 27.8 MCV 100.1. BMP Na 132, Cl 95, bicarb 35, BUN 35, Cr 4.85, Ca 7.5. Iron studies shows Fe 39, TIBC 168, Ferritin 1288. Vancomycin trough 19. Plans for HD session today. Cardiology cleared the patient for discharge if Echo is benign. Awaiting Echo. Possible discharge today. General: non toxic, no distress, appears at stated age Derm: warm, dry Head: atraumatic, normocephalic, symmetric Eyes: EOMI, no lid lag, anicteric sclera Mouth: no lip lesion, mucus membranes moist Cardiovascular: S1S2 reg, no murmur Lungs: CTA bilateral, no rhonchi, no rales , no accessory muscle use Abdominal: soft, nontender to palpation, no guarding, no appreciable organomegaly Ext: no gross muscle atrophy, no edema, no contractures Neuro: no focal neuro deficits Psych: Alert, oriented, appropriate affect Diabetes mellitus with hyperglycemia due to malfunctioning insulin pump: Continue insulin pump. ISS. Accuchecks ACHS. Hypoglycemic precautions. Troponin elevation likely leak from ESRD: Started on Heparin drip by ED, discontinued by Cardiology. Status post ASA 325 mg PO x 1. ASA 81 mg PO QD. Coreg 25 mg PO BID. Lipitor 20 mg PO QD. Echo pending. Telemetry monitoring. Cardiology on board Anxiety: Ativan 1 mg IV Q6H PRN. Recent peritoneal dialysis catheter infection: Restart Vancomycin dosed per pharmacy. ID on board. Normocytic anemia: Appears at baseline. Likely due to AOCD. No obvious bleeding. Transfuse if Hg < 7. Hypertension: Coreg as above. Amlodipine 10 mg PO QD. Hydralazine 100 mg PO TID. Losartan 50 mg PO QD. Torsemide 40 mg PO QD. Dyslipidemia: Lipitor as above. CODE STATUS: FULL CODE DVT Prophylaxis: Heparin drip. GI Prophylaxis: Designated medical POA if patient is not able to make medical decisions for themselves: I have reviewed the following legal consultant notes: ID, Nephrology, Cardiology I have reviewed the results of the following tests: Iron studies, Vanc trough, CBC, BMP. I have ordered the following tests: Echo is pending. I have discussed the care of this patient with the following independent historian: I have independently interpreted the following test below: I have discussed the management of this patient with the following physician: Objective - Vital Signs Vital signs: Vital Signs Temp 97.8 F 11/26/23 05:51 Pulse 67 11/26/23 05:51 Resp 19 11/26/23 05:51 BP 165/97 11/26/23 05:51 Pulse Ox 99 11/26/23 05:51 FiO2 Intake & Output 11/25/23 11/26/23 11/26/23 18:59 06:59 18:59 Intake Total 500 214.700 Output Total 1999 Balance -1500 214.700 Intake: Intake, IV Titration 214.700 Amount Heparin Sod,Pork in 0.45% 214.700 NaCl 25,000 unit In 0.45 % NaCl 1 250ml.bag @ 11. 023 UNITS/KG/HR 10 mls/hr IV .Q24H [facility] Rx#: [id number] Hemodialysis 500 Output: Hemodialysis 2000 - Labs CBC & Chem 7: 11/26/23 09:10 11/26/23 09:10 Labs: Abnormal Lab Results - Last 24 Hours (Table) 11/25/23 11/25/23 11/25/23 Range/Units 07:09 07:45 10:01 APTT (22.0-30.0) sec POC Glucose (mg/dL) 306 H (70-110) mg/dL Iron (65-175) UG/DL TIBC (228-460) UG/DL Transferrin (204.0-354.0) mg/dL Ferritin (22.0-322.0) ng/mL Troponin I 0.098 H* 0.095 H* (0.000-0.034) ng/mL 11/25/23 11/25/23 11/26/23 Range/Units 11:23 12:07 00:45 APTT 36.8 H (22.0-30.0) sec POC Glucose (mg/dL) 123 H (70-110) mg/dL Iron 39 L (65-175) UG/DL TIBC 168 L (228-460) UG/DL Transferrin 120.0 L (204.0-354.0) mg/dL Ferritin 1288.0 H (22.0-322.0) ng/mL Troponin I (0.000-0.034) ng/mL
[2023-11-26] MEDS ORDERED: hydrALAZINE HCL 20 MG/ML 1 ML VIAL IVP PRN (11:12)
--- NOTE | 2023-11-26 11:13 | P.PN ---
Subjective Patient is seen in follow-up for end-stage renal disease. He is maintained on hemodialysis on Friday schedule. Tolerated nearly 2 L ultrafiltration yesterday. Denies chest pain or shortness of breath. Blood sugars better controlled. Vital signs are stable. General: No acute distress. HEENT: Head exam is unremarkable. LUNGS: No audible rhonchi or wheezes. HEART: Rate and Rhythm are regular. ABDOMEN: Nontender. EXTREMITITES: 1+ edema. Objective - Vital Signs Vital signs: Vital Signs Temp 97.8 F 11/26/23 05:51 Pulse 67 11/26/23 09:40 Resp 18 11/26/23 09:40 BP 183/107 11/26/23 09:40 Pulse Ox 94 L 11/26/23 09:40 FiO2 Intake & Output 11/25/23 11/26/23 11/26/23 18:59 06:59 18:59 Intake Total 500 214.700 71.711 Output Total 2000 Balance -1500 214.700 71.711 Intake: Intake, IV Titration 214.700 71.711 Amount Heparin Sod,Pork in 0.45% 214.700 71.711 NaCl 25,000 unit In 0.45 % NaCl 1 250ml.bag @ 11. 023 UNITS/KG/HR 10 mls/hr IV .Q24H [facility] Rx#: [id number] Hemodialysis 500 Output: Hemodialysis 2000 - Labs CBC & Chem 7: 11/26/23 09:10 11/26/23 09:10 Labs: Abnormal Lab Results - Last 24 Hours (Table) 11/25/23 11/25/23 11/25/23 Range/Units 10:01 11:23 12:07 RBC (4.30-5.90) m/uL Hgb (13.0-17.5) gm/dL Hct (39.0-53.0) % MCV (80.0-100.0) fL APTT (22.0-30.0) sec Sodium (137-145) mmol/L Chloride (98-107) mmol/L Carbon Dioxide (22-30) mmol/L BUN (9-20) mg/dL Creatinine (0.66-1.25) mg/dL POC Glucose (mg/dL) 123 H (70-110) mg/dL Calcium (8.4-10.2) mg/dL Iron 39 L (65-175) UG/DL TIBC 168 L (228-460) UG/DL Transferrin 120.0 L (204.0-354.0) mg/dL Ferritin 1288.0 H (22.0-322.0) ng/mL Troponin I 0.095 H* (0.000-0.034) ng/mL 11/26/23 11/26/23 11/26/23 Range/Units 00:45 09:10 09:10 RBC 2.78 L (4.30-5.90) m/uL Hgb 8.7 L (13.0-17.5) gm/dL Hct 27.8 L (39.0-53.0) % MCV 100.1 H (80.0-100.0) fL APTT 36.8 H (22.0-30.0) sec Sodium 132 L (137-145) mmol/L Chloride 95 L (98-107) mmol/L Carbon Dioxide 35 H (22-30) mmol/L BUN 35 H (9-20) mg/dL Creatinine 4.85 H (0.66-1.25) mg/dL POC Glucose (mg/dL) (70-110) mg/dL Calcium 7.5 L (8.4-10.2) mg/dL Iron (65-175) UG/DL TIBC (228-460) UG/DL Transferrin (204.0-354.0) mg/dL Ferritin (22.0-322.0) ng/mL Troponin I (0.000-0.034) ng/mL Assessment and Plan Plan: Assessment: 1. End-stage renal disease maintained on hemodialysis on Friday schedule. 2. PD associated peritonitis status post removal of PD catheter and maintained on IV vancomycin outpatient. ID following. Receiving IV vancomycin. 3. Diabetes mellitus. 4. Hypertonic hyponatremia. Also component of hypervolemia. Better. 5. Volume overload. Improved with ultrafiltration. 6. Anemia of chronic kidney disease. High ferritin noted. 7. NSTEMI being followed by cardiology. 8. Hypertension with chronic kidney disease. 9. Chronic kidney disease mineral bone disease. Phosphorus level 3.6 dated November 26, 2023. Plan: Hemodialysis today per his outpatient schedule. Add Aranesp. Monitor vancomycin levels. Dose to be adjusted for renal function. Stressed compliance with medications and dialysis treatments multiple times. Life-threatening effects, including , of noncompliance have been discussed with the patient multiple times. Vascular surgery consulted due to cuff exposure of the permacath. Follow-up echocardiogram.
[2023-11-26] MEDS ORDERED: INSULIN PUMP BASAL RATES 1 EACH MISC MISCELLANE PRN (14:46)
[2023-11-26] MEDS ORDERED: INSULIN ASPART (NovoLOG) 100 UNIT/ML VIAL SQ PRN (14:46)
[2023-11-26] MEDS ORDERED: INSPUCOR MISCELLANE PRN (14:46)
[2023-11-26 16:34] LABS: Glucose,Whole Blood 106 mg/dL (70-110)
[2023-11-26] MEDS: DARBEPOETIN ALFA 40 MCG/0.4 ML SYRINGE SQ SCH (17:17)
[2023-11-26] MEDS: INSULIN PUMP MEAL BOLUS 1 UNIT MISC MISCELLANE SCH (18:48)
--- NOTE | 2023-11-26 19:06 | CA ---
Transthoracic Echo Report Name: Xander West Age: 58 Gender: M : 1965 Exam Date: 11/26/2023 15:08 Exam Location: [facility] Ht (in): 74 Wt (lb): 200 Ordering Physician: Malachi Bae MD Attending/Referring Phys: Color Room Attendant Tisha Palafox RDCS Procedure CPT: Indications: trop Cardiac Hx: Technical Quality: Good Contrast 1: Total Dose (mL): Contrast 2: Total Dose (mL): MEASUREMENTS (Male / Female) Normal Values 2D ECHO LV Diastolic Diameter PLAX 6.2 cm 4.2 - 5.9 / 3.9 - 5.3 cm LV Systolic Diameter PLAX 5.2 cm IVS Diastolic Thickness 1.9 cm 0.6 - 1.0 / 0.6 - 0.9 cm LVPW Diastolic Thickness 2.0 cm 0.6 - 1.0 / 0.6 - 0.9 cm LV Relative Wall Thickness 0.6 RV Internal Dim ED PLAX 4.2 cm LVOT Diameter 2.5 cm LV Diastolic Volume MOD BP 263.9 cm??? 67 - 155 / 56 - 104 cm??? LV Systolic Volume MOD BP 159.2 cm??? 22 - 58 / 19 - 49 cm??? LV Ejection Fraction MOD BP 39.7 % >= 55 % LV Cardiac Index MOD BP 3114.9 cm???/min???m??? LV Diastolic Volume MOD 4C 234.9 cm??? LV Systolic Volume MOD 4C 144.1 cm??? LV Ejection Fraction MOD 4C 38.6 % LV Cardiac Index MOD 4C 2701.0 cm???/min???m??? LV Diastolic Length 4C 10.5 cm LV Systolic Length 4C 9.3 cm LV Diastolic Volume MOD 2C 278.8 cm??? LV Systolic Volume MOD 2C 175.1 cm??? LV Ejection Fraction MOD 2C 37.2 % LV Cardiac Index MOD 2C 3085.8 cm???/min???m??? LV Diastolic Length 2C 11.2 cm LV Systolic Length 2C 9.1 cm LA Volume 167.3 cm??? 18 - 58 / 22 - 52 cm??? LA Volume Index 76.6 cm???/m??? 16 - 28 cm???/m??? Ascending Aorta Diameter 3.7 cm DOPPLER AV Peak Velocity 136.7 cm/s AV Peak Gradient 7.5 mmHg AV Mean Velocity 107.6 cm/s AV Mean Gradient 4.9 mmHg AV Velocity Time Integral 29.3 cm LVOT Peak Velocity 99.9 cm/s LVOT Peak Gradient 4.0 mmHg LVOT Velocity Time Integral 18.9 cm LVOT Stroke Volume 90.6 cm??? LVOT Stroke Volume Index 41.7 ml/m??? LVOT Cardiac Index 2697.9 cm???/min???m??? AV Area Cont Eq vti 3.1 cm??? AV Area Cont Eq pk 3.5 cm??? MV Area PHT 6.0 cm??? Mitral E Point Velocity 83.5 cm/s Mitral A Point Velocity 57.0 cm/s Mitral E to A Ratio 1.5 MV Deceleration Time 126.7 ms TR Peak Velocity 309.5 cm/s TR Peak Gradient 38.3 mmHg Right Atrial Pressure 15.0 mmHg Pulmonary Artery Systolic Pressu 53.3 mmHg Right Ventricular Systolic Press 53.3 mmHg PV Peak Velocity 76.5 cm/s PV Peak Gradient 2.3 mmHg FINDINGS Left Ventricle Left ventricular ejection fraction is estimated at 40 %. Severely increased septal wall thickness. Mildly increased left ventricular diastolic diameter. Severely increased left ventricular diastolic volume. Severely increased left ventricular systolic volume. Moderately decreased left ventricular ejection fraction. Right Ventricle Moderate right ventricular dilatation with borderline reduced function. Severely elevated right ventricular systolic pressure. Right Atrium Severe right atrial dilatation. Left Atrium Severely increased left atrial volume. Moderately increased left atrial area. Mitral Valve Structurally normal mitral valve. No evidence for mitral valve prolapse. No mitral stenosis. Mild to moderate mitral regurgitation. Aortic Valve Trileaflet aortic valve. No aortic stenosis. Mild aortic regurgitation. Tricuspid Valve Structurally normal tricuspid valve. No tricuspid stenosis. Mild tricuspid regurgitation. Pulmonic Valve Structurally normal pulmonic valve. No pulmonic stenosis. [id number] pulmonic regurgitation. Pericardium Small pericardial effusion. Left pleural effusion. Aorta Normal size aortic root and proximal ascending aorta. CONCLUSIONS Impaired LV function with EF around 40% Previewed by: Dr. Nikhil Penn MD (Electronically Signed) Final Date: 26 Nov 2023 19:05
[2023-11-26 21:05] LABS: Glucose,Whole Blood 67 mg/dL (70-110)
[2023-11-26 23:11] LABS: Glucose,Whole Blood 98 mg/dL (70-110)
[2023-11-27 02:24] LABS: Glucose,Whole Blood 109 mg/dL (70-110)
[2023-11-27 05:54] LABS: Glucose,Whole Blood 87 mg/dL (70-110)
[2023-11-27] MEDS ORDERED: LORazepam 1 MG/0.5 ML VIAL IV PRN (08:22)
[2023-11-27 10:42] LABS: HCT 30.1 % (39.0-53.0); HGB 9.3 gm/dL (13.0-17.5); MCH 31.5 pg (25.0-35.0); MCHC 30.8 g/dL (31.0-37.0); MCV 102.2 fL (80.0-100.0); Macrocytosis Slight; Mean Platelet Volume 8.3; Platelet Count 276 k/uL (150-450); RBC 2.95 m/uL (4.30-5.90); RDW 15.2 % (11.5-15.5); WBC 5.5 k/uL (3.8-10.6)
[2023-11-27 10:55] LABS: African American GFR (CKD) 22 (>60 ml/min/1.73 sqM); Anion Gap 7 mmol/L; Blood Urea Nitrogen 20 mg/dL (9-20); Calcium 7.6 mg/dL (8.4-10.2); Carbon Dioxide 28 mmol/L (22-30); Chloride 96 mmol/L (98-107); Glucose 96 mg/dL (74-99); Non-African American GFR(CKD) 19 (>60 ml/min/1.73 sqM); Potassium 4.2 mmol/L (3.5-5.1); Sodium 131 mmol/L (137-145)
[2023-11-27] MEDS ORDERED: ALPRAZolam 0.25 MG TAB PO PRN (11:47)
[2023-11-27] MEDS ORDERED: NITROGLYCERIN SL TABS 0.4 MG TAB SUBLINGUAL PRN (11:47)
[2023-11-27 12:07] LABS: Glucose,Whole Blood 83 mg/dL (70-110)
[2023-11-27] MEDS: ALPRAZolam 0.5 MG TAB PO PRN (12:52)
--- NOTE | 2023-11-27 13:09 | P.PN ---
Subjective Patient is seen in follow-up for end-stage renal disease. He is maintained on hemodialysis on Friday schedule. Tolerated nearly 2 L ultrafiltration yesterday. Denies chest pain or shortness of breath. Blood sugars controlled. Potential cardiac cath tomorrow. Feels stressed. Vital signs are stable. General: No acute distress. HEENT: Head exam is unremarkable. LUNGS: No audible rhonchi or wheezes. HEART: Rate and Rhythm are regular. ABDOMEN: Nontender. EXTREMITITES: 1+ edema. Objective - Vital Signs Vital signs: Vital Signs Temp 97.4 F L 11/26/23 22:41 Pulse 72 11/27/23 03:56 Resp 16 11/27/23 03:56 BP 162/84 11/27/23 03:56 Pulse Ox 95 11/27/23 12:43 FiO2 Intake & Output 11/26/23 11/27/23 11/27/23 18:59 06:59 18:59 Intake Total 571.711 240 360 Output Total 2500 Balance -1928.289 240 360 Weight 83.7 kg Intake: Intake, IV Titration 71.711 Amount Heparin Sod,Pork in 0.45% 71.711 NaCl 25,000 unit In 0.45 % NaCl 1 250ml.bag @ 11. 023 UNITS/KG/HR 10 mls/hr IV .Q24H [facility] Rx#: [id number] Oral 240 360 Hemodialysis 500 Output: Hemodialysis 2500 Other: # Voids 1 - Labs CBC & Chem 7: 11/27/23 07:49 11/27/23 07:49 Labs: Abnormal Lab Results - Last 24 Hours (Table) 11/26/23 11/27/23 11/27/23 Range/Units 21:03 07:49 07:49 RBC 2.95 L (4.30-5.90) m/uL Hgb 9.3 L (13.0-17.5) gm/dL Hct 30.1 L (39.0-53.0) % MCV 102.2 H (80.0-100.0) fL MCHC 30.8 L (31.0-37.0) g/dL Sodium 131 L (137-145) mmol/L Chloride 96 L (98-107) mmol/L Creatinine 3.45 H (0.66-1.25) mg/dL POC Glucose (mg/dL) 67 L (70-110) mg/dL Calcium 7.6 L (8.4-10.2) mg/dL Assessment and Plan Plan: Assessment: 1. End-stage renal disease maintained on hemodialysis on Friday schedule. 2. PD associated peritonitis status post removal of PD catheter and maintained on IV vancomycin outpatient. ID following. Receiving IV vancomycin. 3. Diabetes mellitus. 4. Hypertonic hyponatremia. Also component of hypervolemia. Better. 5. Volume overload. Improved with ultrafiltration. 6. Anemia of chronic kidney disease. High ferritin noted. On Aranesp. 7. NSTEMI being followed by cardiology. Potential cardiac cath tomorrow. 8. Hypertension with chronic kidney disease. 9. Chronic kidney disease mineral bone disease. Phosphorus level 3.6 dated November 26, 2023. 10. Cardiomyopathy with ejection fraction of 40% with mild to moderate mitral regurgitation. Plan: Hemodialysis tomorrow. Monitor vancomycin levels. Dose to be adjusted for renal function. Avoid aggressive IV hydration pre and postcardiac cath due to underlying hypervolemia and cardiomyopathy. Stressed compliance with medications and dialysis treatments multiple times. Life-threatening effects, including , of noncompliance have been discussed with the patient multiple times.
--- NOTE | 2023-11-27 13:27 | P.PN ---
Subjective Progress Note Date: 11/27/23 Reason for Consult (text): NSTEMI History of present illness: History of present illness: This is a 58-year-old male patient of Dr. Clare Means with past medical history of end-stage renal disease on peritoneal dialysis, mitral and aortic regurgitation, hypertension, dyslipidemia. We have been asked to evaluate the patient for non- ST elevated myocardial infarction. Patient gives history that he presented to the hospital because he was having nausea and sweats but doing better today and is ready to go home. He denies having any chest pain no chest pressure no shortness of breath. He states his blood sugars have been out of control and he presented with a blood sugar in the 500s. Patient has been started on a heparin drip. He states he had a cardiac catheterization done at least 15 years ago and this was normal. He also gives history of having peritonitis in July but no symptoms of that at this time. He states he had a little bit of abdominal pain last night but none now and no lower extremity edema. Patient is seen today in the emergency center waiting for bed on the cardiac stepdown unit. EKG sinus rhythm with nonspecific ST changes Chest x-ray: Correlate for CHF WBC 12, hemoglobin 9.3, platelet count 328. INR 1. Sodium 131, potassium 3.8, chloride 88, CO2 30, BUN 70 creatinine 7. Glucose 515. Calcium 7.8, phosphorus 3.6. Iron 39, TIBC 168. Transferrin 120, ferritin 1288. Iron saturation 23. Troponins 0.102, 0.098, 0.095. Urinalysis protein 3+, glucose 4+. Acetone negative. Home cardiac medications: Amlodipine 10 mg daily, atorvastatin 20 mg daily, Coreg 25 mg twice daily, hydralazine 100 mg 3 times daily, losartan 50 mg daily, torsemide 40 mg daily. Echocardiogram performed 11/18/2023 in the office revealed EF 50 to 55%, severe concentric left ventricular hypertrophy. Mild aortic regurgitation. Moderate mitral regurgitation. Mild tricuspid regurgitation. Mild to moderate pulmonic regurgitation. Lexiscan Cardiolite stress test performed in the office on 03/21/2022 was negative stress by EKG criteria and normal myocardial perfusion and function. 11/26 Patient is seen today in follow-up. He denies having any chest pain or chest pressure. He states that when he walks he needs to take breaks because of weakness. At night he did have episode of difficulty in breathing. Blood pressure 162/84, heart rate 72, pulse ox 90% on room air. Repeat blood work reveals hemoglobin 9.3, BUN 20 creatinine 3.45. Echocardiogram reveals EF of 40%. Discussed plan for next steps with the patient. He is agreeable to move forward with cardiac catheterization tomorrow. Physical examination: Gen: This is a 58-year-old male in no acute distress VS: reviewed HEENT: Head is atraumatic, normocephalic. Pupils equal, round. Sclerae is anicteric. NECK: Supple. No JVD. LUNGS: Clear to auscultation. No wheezes or rhonchi. No intercostal retractions. HEART: Regular rate and rhythm. No murmur. ABDOMEN: Soft No tenderness. EXTREMITIES: No pedal edema. No calf tenderness. NEUROLOGICAL: Patient is awake, alert and oriented x3. Assessment: Hyperglycemia Elevated troponins of unclear etiology, most likely due to renal failure Acute coronary syndrome ruled out End-stage renal disease on peritoneal dialysis with recent episode of peritonitis Mitral and aortic regurgitation Hypertension Dyslipidemia Plan: Continue current cardiac medications: Amlodipine 10 mg daily, aspirin 81 mg daily, atorvastatin 20 mg daily, Coreg 25 mg twice daily, hydralazine 100 mg 3 times daily, losartan 100 mg daily, Demadex 40 mg daily Patient will be scheduled for cardiac catheterization tomorrow with Dr. Pack. N.p.o. at midnight Further recommendations as patient progresses. Nurse practitioner note has been reviewed, I agree with documented findings and plan of care. Patient was seen and examined. Objective - Vital Signs Vital signs: Vital Signs Temp 97.4 F L 11/26/23 22:41 Pulse 72 11/27/23 03:56 Resp 16 11/27/23 03:56 BP 162/84 11/27/23 03:56 Pulse Ox 98 11/27/23 03:56 FiO2 Intake & Output 11/26/23 11/27/23 11/27/23 18:59 06:59 18:59 Intake Total 571.711 240 360 Output Total 2500 Balance -8.289 240 360 Weight 83.7 kg Intake: Intake, IV Titration 71.711 Amount Heparin Sod,Pork in 0.45% 71.711 NaCl 25,000 unit In 0.45 % NaCl 1 250ml.bag @ 11. 023 UNITS/KG/HR 10 mls/hr IV .Q24H [facility] Rx#: [id number] Oral 240 360 Hemodialysis 500 Output: Hemodialysis 2500 Other: # Voids 1 - Labs CBC & Chem 7: 11/27/23 07:49 11/27/23 07:49 Labs: Abnormal Lab Results - Last 24 Hours (Table) 11/26/23 11/27/23 11/27/23 Range/Units 21:03 07:49 07:49 RBC 2.95 L (4.30-5.90) m/uL Hgb 9.3 L (13.0-17.5) gm/dL Hct 30.1 L (39.0-53.0) % MCV 102.2 H (80.0-100.0) fL MCHC 30.8 L (31.0-37.0) g/dL Sodium 131 L (137-145) mmol/L Chloride 96 L (98-107) mmol/L Creatinine 3.45 H (0.66-1.25) mg/dL POC Glucose (mg/dL) 67 L (70-110) mg/dL Calcium 7.6 L (8.4-10.2) mg/dL
[2023-11-27] MEDS: LIDOCAINE 1% INJ 10MG/ML (20 ML MDV) SQ ONE (14:57)
[2023-11-27] MEDS: SODIUM CHLORIDE 0.9% 500 ML 500 ML IV ONE (14:57)
--- NOTE | 2023-11-27 15:22 | P.PN ---
Subjective Progress Note Date: 11/26/23 Principal diagnosis: Reason for follow-up is PD catheter associated peritonitis Patient is a 58-year-old male with a past medical history significant for diabetes mellitus hypertension hyperlipidemia end-stage renal disease in this patient who was on peritoneal dialysis has developed PD catheter associated peritonitis requiring removal of his PD catheter with a catheter tip culture positive for coagulase-negative staph blood culture negative, patient presented back to the hospital with generalized weakness abdominal pain and uncontrolled blood sugar. On today's evaluation that is 11/26/2023, patient has been afebrile, patient is breathing comfortably and is currently on room air, patient denies having any significant cough no chest pain shortness of breath, patient denies nausea vomiting or diarrhea and abdominal pain has decreased in intensity Patient white count normalized to 6.7, creatinine is 4.85 Objective - Vital Signs Vital signs: Vital Signs Temp 97.8 F 11/26/23 05:51 Pulse 67 11/26/23 09:40 Resp 18 11/26/23 09:40 BP 183/107 11/26/23 09:40 Pulse Ox 94 L 11/26/23 09:40 FiO2 Intake & Output 11/25/23 11/26/23 11/26/23 18:59 06:59 18:59 Intake Total 500 214.700 71.711 Output Total 2000 Balance -1500 214.700 71.711 Intake: Intake, IV Titration 214.700 71.711 Amount Heparin Sod,Pork in 0.45% 214.700 71.711 NaCl 25,000 unit In 0.45 % NaCl 1 250ml.bag @ 11. 023 UNITS/KG/HR 10 mls/hr IV .Q24H [facility] Rx#: [id number] Hemodialysis 500 Output: Hemodialysis 1999 - Exam GENERAL DESCRIPTION: A middle-age male in bed in no distress RESPIRATORY SYSTEM: Unlabored breathing , decreased breath sounds at bases HEART: S1 S2 regular rate and rhythm , ABDOMEN: Soft , no tenderness EXTREMITIES: No edema feet - Labs CBC & Chem 7: 11/27/23 07:49 11/27/23 07:49 Labs: Abnormal Lab Results - Last 24 Hours (Table) 11/25/23 11/25/23 11/25/23 Range/Units 10:01 11:23 12:07 RBC (4.30-5.90) m/uL Hgb (13.0-17.5) gm/dL Hct (39.0-53.0) % MCV (80.0-100.0) fL APTT (22.0-30.0) sec Sodium (137-145) mmol/L Chloride (98-107) mmol/L Carbon Dioxide (22-30) mmol/L BUN (9-20) mg/dL Creatinine (0.66-1.25) mg/dL POC Glucose (mg/dL) 123 H (70-110) mg/dL Calcium (8.4-10.2) mg/dL Iron 39 L (65-175) UG/DL TIBC 168 L (228-460) UG/DL Transferrin 120.0 L (204.0-354.0) mg/dL Ferritin 1288.0 H (22.0-322.0) ng/mL Troponin I 0.095 H* (0.000-0.034) ng/mL 11/26/23 11/26/23 11/26/23 Range/Units 00:45 09:10 09:10 RBC 2.78 L (4.30-5.90) m/uL Hgb 8.7 L (13.0-17.5) gm/dL Hct 27.8 L (39.0-53.0) % MCV 100.1 H (80.0-100.0) fL APTT 36.8 H (22.0-30.0) sec Sodium 132 L (137-145) mmol/L Chloride 95 L (98-107) mmol/L Carbon Dioxide 35 H (22-30) mmol/L BUN 35 H (9-20) mg/dL Creatinine 4.85 H (0.66-1.25) mg/dL POC Glucose (mg/dL) (70-110) mg/dL Calcium 7.5 L (8.4-10.2) mg/dL Iron (65-175) UG/DL TIBC (228-460) UG/DL Transferrin (204.0-354.0) mg/dL Ferritin (22.0-322.0) ng/mL Troponin I (0.000-0.034) ng/mL Assessment and Plan (1) Peritonitis Current Visit: Yes Status: Acute Code(s): K65.9 - PERITONITIS, UNSPECIFIED SNOMED Code(s): 78014006 (2) Peritoneal dialysis catheter infection Current Visit: No Status: Acute Code(s): T85.71XA - INFECT/INFLM REACTION DUE TO PERITON DIALYSIS CATHETER, INIT SNOMED Code(s): 585670951 Plan: 1patient presented to hospital with hyperglycemia and this patient who was recently diagnosed with a PD catheter associated peritonitis status post removal of the peritoneal dialysis catheter with a catheter tip culture positive for coagulase-negative staph for the patient was supposed to get IV vancomycin thr ough the dialysis apparently the patient has been some of her dialysis now with abdominal pain and elevated white count concerning for partially treated PD catheter associated peritonitis. 2patient did have normalization of his white count I will continue patient on vancomycin pharmacy to dose and continue supportive care Dictation was produced using [employer] dictation software. please excuse any g rammatical, word or spelling errors. Time with Patient: Less than 30
--- NOTE | 2023-11-27 15:23 | P.PN ---
Subjective Progress Note Date: 11/27/23 Principal diagnosis: Reason for follow-up is PD catheter associated peritonitis Patient is a 58-year-old male with a past medical history significant for diabetes mellitus hypertension hyperlipidemia end-stage renal disease in this patient who was on peritoneal dialysis has developed PD catheter associated peritonitis requiring removal of his PD catheter with a catheter tip culture positive for coagulase-negative staph blood culture negative, patient presented back to the hospital with generalized weakness abdominal pain and uncontrolled blood sugar. On today's evaluation that is 11/27/2023,the patient denies any fever or any chills, patient is breathing comfortably on room air, the patient denies chest pain shortness of breath and no significant cough, patient did have improvement abdominal pain some nausea but no vomiting no diarrhea. Patient white count is 5.5, creatinine 3.45 Objective - Vital Signs Vital signs: Vital Signs Temp 97.4 F L 11/26/23 22:41 Pulse 72 11/27/23 03:56 Resp 16 11/27/23 03:56 BP 162/84 11/27/23 03:56 Pulse Ox 95 11/27/23 12:43 FiO2 Intake & Output 11/26/23 11/27/23 11/27/23 18:59 06:59 18:59 Intake Total 571.711 240 360 Output Total 2500 Balance -1928.289 240 360 Weight 83.7 kg Intake: Intake, IV Titration 71.711 Amount Heparin Sod,Pork in 0.45% 71.711 NaCl 25,000 unit In 0.45 % NaCl 1 250ml.bag @ 11. 023 UNITS/KG/HR 10 mls/hr IV .Q24H [facility] Rx#: [id number] Oral 240 360 Hemodialysis 500 Output: Hemodialysis 2500 Other: # Voids 1 - Exam GENERAL DESCRIPTION: A middle-age male in bed in no distress RESPIRATORY SYSTEM: Unlabored breathing , decreased breath sounds at bases HEART: S1 S2 regular rate and rhythm , ABDOMEN: Soft , no tenderness EXTREMITIES: No edema feet - Labs CBC & Chem 7: 11/27/23 07:49 11/27/23 07:49 Labs: Abnormal Lab Results - Last 24 Hours (Table) 11/26/23 11/27/23 11/27/23 Range/Units 21:03 07:49 07:49 RBC 2.95 L (4.30-5.90) m/uL Hgb 9.3 L (13.0-17.5) gm/dL Hct 30.1 L (39.0-53.0) % MCV 102.2 H (80.0-100.0) fL MCHC 30.8 L (31.0-37.0) g/dL Sodium 131 L (137-145) mmol/L Chloride 96 L (98-107) mmol/L Creatinine 3.45 H (0.66-1.25) mg/dL POC Glucose (mg/dL) 67 L (70-110) mg/dL Calcium 7.6 L (8.4-10.2) mg/dL Assessment and Plan (1) Peritonitis Current Visit: Yes Status: Acute Code(s): K65.9 - PERITONITIS, UNSPECIFIED SNOMED Code(s): 39608652 (2) Peritoneal dialysis catheter infection Current Visit: No Status: Acute Code(s): T85.71XA - INFECT/INFLM REACTION DUE TO PERITON DIALYSIS CATHETER, INIT SNOMED Code(s): 725128556 Plan: 1patient presented to hospital with hyperglycemia and this patient who was recently diagnosed with a PD catheter associated peritonitis status post removal of the peritoneal dialysis catheter with a catheter tip culture positive for coagulase-negative staph for the patient was supposed to get IV vancomycin through the dialysis apparently the patient has been some of her dialysis now with abdominal pain and elevated white count concerning for partially treated PD catheter associated peritonitis. 2patient remains to be febrile white count has normalized covered with vancomycin pharmacy to dose and continue supportive care Dictation was produced using [employer] dictation software. please excuse any grammatical, word or spelling errors. Time with Patient: Less than 30
--- NOTE | 2023-11-27 16:02 | P.PN ---
Subjective Progress Note Date: 11/27/23 Hospital course: Patient is a pleasant 58-year-old male with a past medical history of ESRD on peritoneal dialysis, hypertension, hyperlipidemia, and insulin-dependent diabetes mellitus on insulin pump. He presented to the emergency department on 11/25/2023 with reports of profound weakness and anxiety. He recently underwent hospitalization for peritonitis and his dialysis catheter was found to be infected and was discontinued and a Temo catheter was inserted for hemodialysis, patient was discharged home on IV antibiotics with vancomycin and undergoing hemodialysis. Patient also reports stopping his insulin pump to charge it and since having difficulties obtaining control of his blood sugars. He underwent evaluation in the emergency department. Vital signs upon arrival show blood pressure 179/83, heart rate 73, respiratory rate 18, temp 98.1 F, and SpO2 of 95% on room air. Labs were completed and reviewed. CBC showing leukocytosis with WBC count of 12.0 and normocytic anemia with hemoglobin of 9.3. Coagulation profile was normal findings. BMP revealed hyponatremia with sodium of 131, hypochloremia with chloride of 88, BUN of 70, creatinine of 7.00, and GFR of 8. Blood glucose upon arrival was 515. Liver profile showing no significant abnormalities with exception of low albumin of 2.9. Troponin was elevated at 0.102. EKG revealed sinus mechanism at 73 bpm with a prolonged QT/QTc of 444/470 ms.. Patient was started on heparin infusion for NSTEMI and admitted under our services for evaluation with consultation to cardiology. Troponins were trended resulting at 0.102, 0.098, and 0.095. Iron profile showing iron of 39, TIBC of 168, iron percentage saturation 23.21, transferrin of 120, and ferritin of 1288. Urinalysis was negative for infection positive for protein and glucose. Chest x-ray was completed showing fluid volume overload consistent with CHF. Echocardiogram completed showing a reduced EF of 40% with a severely elevated right ventricular systolic pressure, severe right atrial dilation, mild to moderate pulmonary regurgitation, and small pericardial effusion. Physical exam: Patient seen and fully evaluated at bedside. Patient reports feeling better this morning than he did yesterday. He is tolerating oral intake and denies any episodes of nausea or vomiting. Patient states he is feeling stressed and slightly anxious over recent infection and current need for cardiac cath. He currently denies having chest pain, palpitations, shortness of breath, abdominal pain, or any other complaints at this time. Vital signs reviewed and stable. General: Nontoxic, no distress and appears stated age. Derm: Skin warm and dry, normal coloration for ethnicity. Head: Atraumatic, normocephalic and symmetric. Eyes: EOMs intact, no lid lag, and anicteric sclera Mouth: no lip lesions, mucus membranes moist Cardiovascular: regular rate and rhythm with normal S1S2, systolic murmur, positive posterior tibial pulses bilaterally, and cap refill < 2 seconds. D ialysis catheter/Temo cath left anterior chest. Lungs: Respirations even, regular, and unlabored on room air. Lungs CTA bilaterally, no rhonchi, no rales, no wheezing, and no accessory muscle usage. Abdominal: soft, nontender to palpation, no guarding, no appreciable organomegaly Ext: ROM intact. No gross muscle atrophy, no edema, no contractures Neuro: Speech clear, face symmetrical and CN II-XII grossly intact with no noted focal neuro deficits Psych: Alert and oriented to person, place, time, and situation. Appropriate and pleasant affect. Assessment and Plan of Care: NSTEMI Acute systolic CHF Hyponatremia secondary to fluid volume overload -Cardiology following, planning to take patient for cardiac cath tomorrow morning. -Continue telemetry monitoring -Cardiac diet, NPO at midnight -Continue cardiac medication regimen with aspirin 81 mg daily, amlodipine 10 mg daily, atorvastatin 20 mg daily, carvedilol 25 mg twice daily, hydralazine 100 mg 3 times daily, losartan 100 mg daily, and torsemide 40 mg daily. -Echocardiogram showing a reduced EF of 40% with a severely elevated right ventricular systolic pressure, severe right atrial dilation, mild to moderate pulmonary regurgitation, and small pericardial effusion. Diabetes mellitus with hyperglycemia -Initially patient had issues with personal insulin pump and these have been resolved. Patient to continue personal insulin pump. Blood glucose levels controlled with morning glucose of 96. ESRD on hemodialysis Friday/Friday/Fridays. -Nephrology following and managing hemodialysis -Vascular surgery was consulted as permanent dialysis catheter cuff exposed Peritonitis. Recent peritoneal dialysis catheter infection resulting in peritonitis. Infectious disease following. Patient to continue vancomycin 1500 mg, renal dosing per infectious disease and pharmacy. Anemia of chronic disease, secondary to ESRD. Continue Aranesp. Hypertension. Continue medication regimen with amlodipine 10 mg daily,carvedilol 25 mg twice daily, hydralazine 100 mg 3 times daily, losartan 100 mg daily, and torsemide 40 mg daily. Hyperlipidemia. Continue medication regimen with atorvastatin 20 mg daily. Data and imaging reviewed: Echocardiogram showing a reduced EF of 40% with a severely elevated right ventricular systolic pressure, severe right atrial dilation, mild to moderate pulmonary regurgitation, and small pericardial effusion. Vital signs reviewed. Blood pressure 158/85, heart rate 65, respiratory rate 16, temp 98.5 F, and SpO2 of 96% on room air. morning labs reviewed. CBC showing stable macrocytic anemia with hemoglobin of 9.3. BMP showing hyponatremia with sodium of 131 and hypochloremia with chloride of 96. Renal function consistent with known ESRD with BUN of 20, creatinine 3.45, GFR of 19. Blood glucose 96. Magnesium 1.9. Random vancomycin 29.4. CODE STATUS: Full code DVT prophylaxis: Heparin Anticipated discharge date: Clinical course to determine Anticipated discharge place: Clinical course to determine. Patient was seen independently by Nurse Pracitioner. This document was prepared using [employer] dictation software. Please allow for errors in submarine operator, while rare they do occur. Anton Salgado NP rendered care for this patient independently, reviewed the findings and plan as documented in the note above. I did not physically speak with or examine the patient on this date. Objective - Vital Signs Vital signs: Vital Signs Temp 97.4 F L 11/26/23 22:41 Pulse 72 11/27/23 03:56 Resp 16 11/27/23 03:56 BP 162/84 11/27/23 03:56 Pulse Ox 98 11/27/23 03:56 FiO2 Intake & Output 11/26/23 11/27/23 11/27/23 18:59 06:59 18:59 Intake Total 571.711 240 Output Total 2500 Balance -1928.289 240 Weight 83.7 kg Intake: Intake, IV Titration 71.711 Amount Heparin Sod,Pork in 0.45% 71.711 NaCl 25,000 unit In 0.45 % NaCl 1 250ml.bag @ 11. 023 UNITS/KG/HR 10 mls/hr IV .Q24H [facility] Rx#: [id number] Oral 240 Hemodialysis 500 Output: Hemodialysis 2500 Other: # Voids 1 - Labs CBC & Chem 7: 11/27/23 07:49 11/27/23 07:49 Labs: Abnormal Lab Results - Last 24 Hours (Table) 11/26/23 11/26/23 11/26/23 Range/Units 09:10 09:10 21:03 RBC 2.78 L (4.30-5.90) m/uL Hgb 8.7 L (13.0-17.5) gm/dL Hct 27.8 L (39.0-53.0) % MCV 100.1 H (80.0-100.0) fL Sodium 132 L (137-145) mmol/L Chloride 95 L (98-107) mmol/L Carbon Dioxide 35 H (22-30) mmol/L BUN 35 H (9-20) mg/dL Creatinine 4.85 H (0.66-1.25) mg/dL POC Glucose (mg/dL) 67 L (70-110) mg/dL Calcium 7.5 L (8.4-10.2) mg/dL
[2023-11-27 17:04] LABS: Glucose,Whole Blood 126 mg/dL (70-110)
[2023-11-27 19:44] LABS: Glucose,Whole Blood 179 mg/dL (70-110)
[2023-11-27] MEDS: MORPHINE SULFATE 2 MG/ML SYRINGE IVP STA (20:02)
--- NOTE | 2023-11-27 22:49 | OP ---
OPERATIVE REPORT DATE OF SERVICE : 11/27/2023 PREOPERATIVE DIAGNOSIS: Acute chronic renal failure. POSTOPERATIVE DIAGNOSIS: Acute chronic renal failure. PROCEDURE PERFORMED: Placement of a 28-cm dialysis catheter, jugular approach. This patient had a dialysis catheter placed in the past. The catheter was functioning well, but the cuff of the catheter was exposed. DESCRIPTION OF PROCEDURE: The patient was brought to the agricultural labor camp manager and 2 g of Kefzol given. Neck was prepped and drapes applied in a sterile manner. Incision was made in the neck area. Catheter was identified. Old catheter was removed. Guidewire was passed which was parked in the inferior vena cava. Dilator was advanced and the sheath was advanced on top of the guidewire. Then, the tunnel was created. Through the tunnel, we brought 28 cm dialysis catheter. Catheter was introduced through the sheath. Sheath was removed, flushed with heparin saline and hep-locked, secured with 3-0 Vicryl. There was some oozing from the exit site of catheter. We placed a pressure dressing. The patient tolerated the procedure well. MMODL / IJN: [id number] / MTDD
[2023-11-28 02:46] LABS: Glucose,Whole Blood 104 mg/dL (70-110)
[2023-11-28 05:57] LABS: Glucose,Whole Blood 73 mg/dL (70-110)
[2023-11-28] MEDS: ASPIRIN 325 MG TAB PO ONE (06:41)
[2023-11-28] MEDS: ATORVASTATIN 80 MG TAB PO ONE (06:42)
[2023-11-28] MEDS ORDERED: HEPARIN SODIUM,PORCINE (1 ML) 2,500 UNIT in SODIUM CHLORIDE 0.9% 250 ML IRRIGATION PRN (07:00)
[2023-11-28] MEDS ORDERED: HEPARIN SODIUM,PORCINE 10,000 UNIT in SODIUM CHLORIDE 0.9% 1,000 ML IRRIGATION PRN (07:00)
[2023-11-28] MEDS: methylPREDNISolone SOD SUCCI 125 MG/2 ML VIAL IV STA (09:05)
[2023-11-28] MEDS: diphenhydrAMINE 50 MG/ML 1 ML VIAL IVP STA (09:05)
[2023-11-28 09:46] LABS: HCT 24.3 % (39.0-53.0); MCH 32.2 pg (25.0-35.0); MCHC 31.6 g/dL (31.0-37.0); MCV 101.9 fL (80.0-100.0); Macrocytosis Slight; Mean Platelet Volume 8.1; Platelet Count 183 k/uL (150-450); RBC 2.38 m/uL (4.30-5.90); RDW 15.6 % (11.5-15.5); WBC 4.8 k/uL (3.8-10.6)
[2023-11-28 09:48] LABS: HGB 7.7 gm/dL (13.0-17.5)
[2023-11-28 10:09] LABS: African American GFR (CKD) 14 (>60 ml/min/1.73 sqM); Anion Gap 3 mmol/L; Blood Urea Nitrogen 26 mg/dL (9-20); Calcium 7.2 mg/dL (8.4-10.2); Carbon Dioxide 27 mmol/L (22-30); Chloride 99 mmol/L (98-107); Glucose 185 mg/dL (74-99); Magnesium 1.9 mg/dL (1.6-2.3); Non-African American GFR(CKD) 12 (>60 ml/min/1.73 sqM); Potassium 4.2 mmol/L (3.5-5.1); Sodium 129 mmol/L (137-145)
[2023-11-28] MEDS ORDERED: VERAPAMIL 2.5 MG/ML 2 ML AMP ONE (10:17)
[2023-11-28] MEDS ORDERED: LIDOCAINE 1% INJ 10MG/ML (20 ML MDV) ONE (10:17)
[2023-11-28] MEDS: IV FLUID CONTINUATION 1,000 ML IV ONE (10:30)
[2023-11-28] MEDS ORDERED: fentaNYL (PF) 50 MCG/ML 2 ML AMP ONE (10:40)
[2023-11-28] MEDS: MIDAZOLAM 2 MG/2 ML VIAL IVP ONE (10:49)
[2023-11-28] MEDS: fentaNYL (PF) 50 MCG/1 ML VIAL IVP ONE (10:49)
[2023-11-28] MEDS: LIDOCAINE 1% INJ 10MG/ML (20 ML MDV) SQ ONE (10:49)
[2023-11-28] MEDS: VERAPAMIL SYRINGE (5 MG/10 ML) INTRAARTER ONE (10:51)
[2023-11-28] MEDS ORDERED: HEPARIN SODIUM 1,000 UN/ML (10ML VL) ONE (10:51)
[2023-11-28] MEDS: HEPARIN SODIUM 1,000 UN/ML (10ML VL) IVP ONE (10:53)
--- NOTE | 2023-11-28 10:59 | P.PN ---
Subjective Patient is seen in follow-up for end-stage renal disease. He is maintained on hemodialysis on Friday schedule. Scheduled for cardiac catheterization as well as dialysis today. Vital signs are stable. General: No acute distress. HEENT: Head exam is unremarkable. LUNGS: No audible rhonchi or wheezes. HEART: Rate and Rhythm are regular. ABDOMEN: Nontender. EXTREMITITES: 1+ edema. Objective - Vital Signs Vital signs: Vital Signs Temp 98.1 F 11/27/23 20:00 Pulse 69 11/28/23 04:00 Resp 16 11/28/23 04:00 BP 168/85 11/28/23 04:00 Pulse Ox 96 11/28/23 09:34 FiO2 Intake & Output 11/27/23 11/28/23 11/28/23 18:59 06:59 18:59 Intake Total 630 540 Output Total 1 Balance 630 539 Weight 84.8 kg Intake: IV 50 Oral 580 540 Output: Urine 1 Other: # Voids 0 # Bowel Movements 0 - Labs CBC & Chem 7: 11/28/23 09:03 11/28/23 09:03 Labs: Abnormal Lab Results - Last 24 Hours (Table) 11/27/23 11/27/23 11/28/23 Range/Units 16:53 19:42 09:03 RBC (4.30-5.90) m/uL Hgb (13.0-17.5) gm/dL Hct (39.0-53.0) % MCV (80.0-100.0) fL RDW (11.5-15.5) % Sodium 129 L (137-145) mmol/L BUN 26 H (9-20) mg/dL Creatinine 4.80 H (0.66-1.25) mg/dL Glucose 185 H (74-99) mg/dL POC Glucose (mg/dL) 126 H 179 H (70-110) mg/dL Calcium 7.2 L (8.4-10.2) mg/dL 11/28/23 Range/Units 09:03 RBC 2.38 L (4.30-5.90) m/uL Hgb 7.7 L D (13.0-17.5) gm/dL Hct 24.3 L (39.0-53.0) % MCV 101.9 H (80.0-100.0) fL RDW 15.6 H (11.5-15.5) % Sodium (137-145) mmol/L BUN (9-20) mg/dL Creatinine (0.66-1.25) mg/dL Glucose (74-99) mg/dL POC Glucose (mg/dL) (70-110) mg/dL Calcium (8.4-10.2) mg/dL Assessment and Plan Plan: Assessment: 1. End-stage renal disease maintained on hemodialysis on Friday schedule. 2. PD associated peritonitis status post removal of PD catheter and maintained on IV vancomycin outpatient. ID following. Receiving IV vancomycin. 3. Diabetes mellitus. 4. Hypertonic hyponatremia. Also component of hypervolemia. 5. Volume overload. Improved with ultrafiltration. 6. Anemia of chronic kidney disease. High ferritin noted. On Ara. 7. NSTEMI being followed by cardiology. Potential cardiac cath tomorrow. 8. Hypertension with chronic kidney disease. 9. Chronic kidney disease mineral bone disease. Phosphorus level 3.6 dated November 26, 2023. 10. Cardiomyopathy with ejection fraction of 40% with mild to moderate mitral regurgitation. Plan: Hemodialysis today. Monitor vancomycin levels. Dose to be adjusted for renal function. Avoid aggressive IV hydration pre and postcardiac cath due to underlying hypervolemia and cardiomyopathy. Stressed compliance with medications and dialysis treatments multiple times. Life-threatening effects, including , of noncompliance have been discussed with the patient multiple times.
[2023-11-28 11:25] LABS: Glucose,Whole Blood 260 mg/dL (70-110)
--- NOTE | 2023-11-28 15:19 | P.PN ---
Subjective Progress Note Date: 11/28/23 Hospital course: Patient is a pleasant 58-year-old male with a past medical history of ESRD on peritoneal dialysis, hypertension, hyperlipidemia, and insulin-dependent diabetes mellitus on insulin pump. He presented to the emergency department on 11/25/2023 with reports of profound weakness and anxiety. He recently underwent hospitalization for peritonitis and his dialysis catheter was found to be infected and was discontinued and a Temo catheter was inserted for hemodialysis, patient was discharged home on IV antibiotics with vancomycin and undergoing hemodialysis. Patient also reports stopping his insulin pump to charge it and since having difficulties obtaining control of his blood sugars. He underwent evaluation in the emergency department. Vital signs upon arrival show blood pressure 179/83, heart rate 73, respiratory rate 18, temp 98.1 F, and SpO2 of 95% on room air. Labs were completed and reviewed. CBC showing leukocytosis with WBC count of 12.0 and normocytic anemia with hemoglobin of 9.3. Coagulation profile was normal findings. BMP revealed hyponatremia with sodium of 131, hypochloremia with chloride of 88, BUN of 70, creatinine of 7.00, and GFR of 8. Blood glucose upon arrival was 515. Liver profile showing no significant abnormalities with exception of low albumin of 2.9. Troponin was elevated at 0.102. EKG revealed sinus mechanism at 73 bpm with a prolonged QT/QTc of 444/470 ms.. Patient was started on heparin infusion for NSTEMI and admitted under our services for evaluation with consultation to cardiology. Troponins were trended resulting at 0.102, 0.098, and 0.095. Iron profile showing iron of 39, TIBC of 168, iron percentage saturation 23.21, transferrin of 120, and ferritin of 1288. Urinalysis was negative for infection positive for protein and glucose. Chest x-ray was completed showing fluid volume overload consistent with CHF. Echocardiogram completed showing a reduced EF of 40% with a severely elevated right ventricular systolic pressure, severe right atrial dilation, mild to moderate pulmonary regurgitation, and small pericardial effusion. Physical exam: Patient seen and fully evaluated at bedside upon return from cardiac catheterization. He is currently free from any complaints at this time. Vital signs reviewed and stable. General: Nontoxic, no distress and appears stated age. Derm: Skin warm and dry, normal coloration for ethnicity. Head: Atraumatic, normocephalic and symmetric. Eyes: EOMs intact, no lid lag, and anicteric sclera Mouth: no lip lesions, mucus membranes moist Cardiovascular: regular rate and rhythm with normal S1S2, systolic murmur, positive posterior tibial pulses bilaterally, and cap refill < 2 seconds. Dialysis catheter/Temo cath left anterior chest. Lungs: Respirations even, regular, and unlabored on room air. Lungs CTA bilaterally, no rhonchi, no rales, no wheezing, and no accessory muscle usage. Abdominal: soft, nontender to palpation, no guarding, no appreciable organomegaly Ext: ROM intact. No gross muscle atrophy, no edema, no contractures Neuro: Speech clear, face symmetrical and CN II-XII grossly intact with no noted focal neuro deficits Psych: Alert and oriented to person, place, time, and situation. Appropriate and pleasant affect. Assessment and Plan of Care: NSTEMI Acute systolic CHF Hyponatremia secondary to fluid volume overload -Cardiology following, took patient for cardiac cath. Cardiac catheterization was verbally reported normal and per cardiology patient cleared for discharge -Continue telemetry monitoring -Cardiac/Renal diet -Continue cardiac medication regimen with aspirin 81 mg daily, amlodipine 10 mg daily, atorvastatin 20 mg daily, carvedilol 25 mg twice daily, hydralazine 100 mg 3 times daily, losartan 100 mg daily, and torsemide 40 mg daily. -Echocardiogram showing a reduced EF of 40% with a severely elevated right ventricular systolic pressure, severe right atrial dilation, mild to moderate pulmonary regurgitation, and small pericardial effusion. Diabetes mellitus with hyperglycemia -Initially patient had issues with personal insulin pump and these have been resolved. Patient to continue personal insulin pump. Blood glucose levels controlled with morning glucose of 96. ESRD on hemodialysis Friday/Friday/Fridays. -Nephrology following and managing hemodialysis -Vascular surgery was consulted as permanent dialysis catheter cuff exposed Peritonitis. Recent peritoneal dialysis catheter infection resulting in peritonitis. Infectious disease following. Patient to continue vancomycin 1500 mg, renal dosing per infectious disease and pharmacy. Anemia of chronic disease, secondary to ESRD. Continue Aranesp. Hypertension. Continue medication regimen with amlodipine 10 mg daily,carvedilol 25 mg twice daily, hydralazine 100 mg 3 times daily, losartan 100 mg daily, and torsemide 40 mg daily. Hyperlipidemia. Continue medication regimen with atorvastatin 20 mg daily. Data and imaging reviewed: Vital signs reviewed. Currently blood pressure 158/77, heart rate 70, respiratory rate 16, and SpO2 of 96% on 2 L. Morning labs reviewed showing macrocytic anemia with hemoglobin of 7.7 and MCV of 101.9. BMP CODE STATUS: Full code DVT prophylaxis: Heparin Anticipated discharge date: Clinical course to determine Anticipated discharge place: Clinical course to determine. Patient was seen independently by Nurse Pracitioner. This document was prepared using [employer] dictation software. Please allow for errors in supervisor reclamation, while rare they do occur. Objective - Vital Signs Vital signs: Vital Signs Temp 98.1 F 11/27/23 20:00 Pulse 69 11/28/23 04:00 Resp 16 11/28/23 04:00 BP 168/85 11/28/23 04:00 Pulse Ox 96 11/28/23 04:00 FiO2 Intake & Output 11/27/23 11/28/23 11/28/23 18:59 06:59 18:59 Intake Total 630 540 Output Total 1 Balance 630 539 Weight 84.8 kg Intake: IV 50 Oral 580 540 Output: Urine 1 Other: # Voids 0 # Bowel Movements 0 - Labs CBC & Chem 7: 11/28/23 09:03 11/28/23 09:03 Labs: Abnormal Lab Results - Last 24 Hours (Table) 11/27/23 11/27/23 11/27/23 Range/Units 07:49 07:49 16:53 RBC 2.95 L (4.30-5.90) m/uL Hgb 9.3 L (13.0-17.5) gm/dL Hct 30.1 L (39.0-53.0) % MCV 102.2 H (80.0-100.0) fL MCHC 30.8 L (31.0-37.0) g/dL Sodium 131 L (137-145) mmol/L Chloride 96 L (98-107) mmol/L Creatinine 3.45 H (0.66-1.25) mg/dL POC Glucose (mg/dL) 126 H (70-110) mg/dL Calcium 7.6 L (8.4-10.2) mg/dL 11/27/23 Range/Units 19:42 RBC (4.30-5.90) m/uL Hgb (13.0-17.5) gm/dL Hct (39.0-53.0) % MCV (80.0-100.0) fL MCHC (31.0-37.0) g/dL Sodium (137-145) mmol/L Chloride (98-107) mmol/L Creatinine (0.66-1.25) mg/dL POC Glucose (mg/dL) 179 H (70-110) mg/dL Calcium (8.4-10.2) mg/dL
--- NOTE | 2023-11-28 15:34 | P.DS ---
Providers Date of admission: 11/27/23 16:16 Expected date of discharge: 11/28/23 Attending physician: Irma Davison MD Consults: 11/25/23 06:32 Consult Physician Urgent Consulting Provider: Juan Miguel Elliott Consult Reason/Comments: Dialysis Do you want consulting provider notified?: Yes Consult Physician Urgent Consulting Provider: Nikhil Penn Consult Reason/Comments: NSTEMI Do you want consulting provider notified?: Yes 11/25/23 11:20 Consult Physician Routine Consulting Provider: Osiris Rodriguez Consult Reason/Comments: abx for peritonitis Do you want consulting provider notified?: Yes 11/25/23 16:56 Consult Physician Urgent Consulting Provider: Dylan Su Consult Reason/Comments: Permanent Dialysis catheter cuff exposed Do you want consulting provider notified?: Yes Primary care physician: Devon Mattson Hospital Course: Discharge Diagnosis: Elevated troponins, type II NSTEMI secondary to acute systolic CHF and underlying ESRD Acute systolic CHF. Echocardiogram completed showing a reduced EF of 40% with a severely elevated right ventricular systolic pressure, severe right atrial dilation, mild to moderate pulmonary regurgitation, and small pericardial effusion. Hyponatremia secondary to fluid volume overload. Sodium 129 on day of discharge, discussed with inker will follow-up outpatient. Patient scheduled for next dialysis session on 12/01/2023. Diabetes mellitus with hyperglycemia Patient to continue personal insulin pump. Blood glucose levels much better controlled with morning glucose of 185 ESRD on hemodialysis Friday/Friday/Fridays. Peritonitis. Recent peritoneal dialysis catheter infection resulting in peritonitis. Infectious disease managing. Patient to continue outpatient [place] ncomycin as dosed and monitored by infectious disease. Anemia of chronic disease, secondary to ESRD. Continue Aranesp. Hypertension. Continue medication regimen with amlodipine 10 mg daily,carvedilol 25 mg twice daily, hydralazine 100 mg 3 times daily, losartan 100 mg daily, and torsemide 40 mg daily. Hyperlipidemia. Continue medication regimen with atorvastatin 20 mg daily. Hospital course: Patient is a pleasant 58-year-old male with a past medical history of ESRD on peritoneal dialysis, hypertension, hyperlipidemia, and insulin-dependent diabetes mellitus on insulin pump. He presented to the emergency department on 11/25/2023 with reports of profound weakness and anxiety. He recently underwent hospitalization for peritonitis and his dialysis catheter was found to be infected and was discontinued and a Temo catheter was inserted for hemodialysis, patient was discharged home on IV antibiotics with vancomycin and undergoing hemodialysis. Patient also reports stopping his insulin pump to charge it and since having difficulties obtaining control of his blood sugars. He underwent evaluation in the emergency department. Vital signs upon arrival show blood pressure 179/83, heart rate 73, respiratory rate 18, temp 98.1 F, and SpO2 of 95% on room air. Labs were completed and reviewed. CBC showing leukocytosis with WBC count of 12.0 and normocytic anemia with hemoglobin of 9.3. Coagulation profile was normal findings. BMP revealed hyponatremia with sodium of 131, hypochloremia with chloride of 88, BUN of 70, creatinine of 7.00, and GFR of 8. Blood glucose upon arrival was 515. Liver profile showing no significant abnormalities with exception of low albumin of 2.9. Troponin was elevated at 0.102. EKG revealed sinus mechanism at 73 bpm with a prolonged QT/QTc of 444/470 ms.. Patient was started on heparin infusion for NSTEMI and admitted under our services for evaluation with consultation to cardiology. Troponins were trended resulting at 0.102, 0.098, and 0.095. Iron profile showing iron of 39, TIBC of 168, iron percentage saturation 23.21, transferrin of 120, and ferritin of 1288. Urinalysis was negative for infection positive for protein and glucose. Chest x-ray was completed showing fluid volume overload consistent with CHF. Echocardiogram completed showing a reduced EF of 40% with a severely elevated right ventricular systolic pressure, severe right atrial dilation, mild to moderate pulmonary regurgitation, and small pericardial effusion. Cardiology following, took patient for cardiac cath. Cardiac catheterization was verbally reported normal and per cardiology patient cleared from cardiology perspective for discharge home and to follow-up outpatient in their office in 1 week. Nephrology clearing patient from their perspective for discharge. Patient's dialysis catheter was replaced on 11/27/2023 and patient received hemodialysis prior to discharge. Patient to follow-up outpatient for continued hemodialysis sessions Friday/Wednesdays/Fridays and with nephrology in office in 1 week. Patient medically stable for discharge at this time. A total of 37 minutes of time were spent preparing this complex discharge summary. Pt was discharged on 11/28/2023 at 3:29 PM. Patient was seen independently by Nurse Practitioner. This document was prepared using [employer] dictation software. Please allow for errors in therapist asst while rare they do occur. Anton Salgado NP rendered care for this patient independently, reviewed the findings and plan as documented in the note above. I did not physically speak with or examine the patient on this date. . Patient Condition at Discharge: Stable Plan - Discharge Summary Discharge Rx Participant: Yes New Discharge Prescriptions: New Aspirin 81 mg PO DAILY 30 Days #30 tab Darbepoetin John [Aranesp] 40 mcg SQ Q7D each Continue Insulin Aspart (For Pump) [NovoLOG (For Pump)] 0.01 unit SQ-PUMP CONTINUOUS carvediloL [Coreg] 25 mg PO BID FLUoxetine HCL [PROzac] 10 mg PO DAILY HYDROcodone/APAP 5-325MG [[place] 5-325] 1 tab PO Q6H Atorvastatin [Lipitor] 20 mg PO DAILY Folic Acid/Vit B Complex and C [Lilian-Marsha Tablet] 0.8 mg PO DAILY Vancomycin See Rx Instructions .ROUTE .COMPLEX #9 each Losartan [Cozaar] 50 mg PO DAILY #60 tab hydrALAZINE HCL [Apresoline] 100 mg PO TID amLODIPine [Norvasc] 10 mg PO DAILY Ondansetron Odt [Zofran ODT] 4 mg PO Q6H PRN PRN Reason: Nausea And Vomiting Torsemide [Demadex] 40 mg PO DAILY #90 tab Discharge Medication List Insulin Aspart (For Pump) [NovoLOG (For Pump)] 0.01 unit SQ-PUMP CONTINUOUS 02/21/23 [History] FLUoxetine HCL [PROzac] 10 mg PO DAILY 07/14/23 [History] carvediloL [Coreg] 25 mg PO BID 07/14/23 [History] Losartan [Cozaar] 50 mg PO DAILY #60 tab 07/16/23 [Rx] Atorvastatin [Lipitor] 20 mg PO DAILY 11/14/23 [History] Folic Acid/Vit B Complex and C [Lilian-Marsha Tablet] 0.8 mg PO DAILY 11/14/23 [History] HYDROcodone/APAP 5-325MG [[place] 5-325] 1 tab PO Q6H 11/14/23 [History] Ondansetron Odt [Zofran ODT] 4 mg PO Q6H PRN 11/14/23 [History] amLODIPine [Norvasc] 10 mg PO DAILY 11/14/23 [History] hydrALAZINE HCL [Apresoline] 100 mg PO TID 11/14/23 [History] Torsemide [Demadex] 40 mg PO DAILY #90 tab 11/17/23 [Rx] Vancomycin See Rx Instructions .ROUTE .COMPLEX #9 each 11/17/23 [Rx] Aspirin 81 mg PO DAILY 30 Days #30 tab 11/28/23 [Rx] Darbepoetin John [Aranesp] 40 mcg SQ Q7D each 11/28/23 [Rx] Follow up Appointment(s)/Referral(s): Nikhil Penn MD [STAFF PHYSICIAN] - 1 Week Devon Mattson MD [Primary Care Provider] - 1-2 days Juan Miguel Elliott DO [STAFF PHYSICIAN] - 1 Week Osiris Rodriguez MD [STAFF PHYSICIAN] - 1 Week Activity/Diet/Wound Care/Special Instructions: Activity: As tolerated. Take breaks as needed. Diet: Follow your renal diet closely with heart healthy and carb consistent diet. Avoid salts, or foods with hidden salts such as canned or boxed foods and frozen dinners. Extra salt makes your heart work harder and traps the fluid in your body for longer. Special Instructions: Weigh yourself every morning after you urinate. If you gain 3 pounds overnight or more than 5 pounds in one week, call your inker for guidance on your medications or they may want to see you in their office, or make changes to your dialysis. Keep a daily log of your weights and be sure to bring with you at follow up visits .. Take all of your medications as directed, especially your water pills. NEVER skip a dose. And remember to keep all of your doctor's appointments and follow- up as needed. Elevate your legs when you are not up moving around to help with circulation and prevent swelling. Compression stockings are also a great way to improve lower extremity circulation and prevent/improve lower extremity edema. Secondary to your recent peritoneal dialysis catheter infection resulting in peritonitis. Infectious disease is managing and will follow outpatient for management and dosing of your vancomycin. Continue hemodialysis as scheduled Mondays/Wednesdays/Fridays. Thank you for allowing us to participate in your care, it was truly a pleasure having you for our patient!!! Discharge Disposition: HOME SELF-CARE
--- NOTE | 2023-11-28 16:07 | P.PN ---
Subjective Progress Note Date: 11/28/23 Principal diagnosis: Reason for follow-up is PD catheter associated peritonitis Patient is a 58-year-old male with a past medical history significant for diabetes mellitus hypertension hyperlipidemia end-stage renal disease in this patient who was on peritoneal dialysis has developed PD catheter associated peritonitis requiring removal of his PD catheter with a catheter tip culture positive for coagulase-negative staph blood culture negative, patient presented back to the hospital with generalized weakness abdominal pain and uncontrolled blood sugar. On today's evaluation that is 11/28/2023,the patient remains to be afebrile, patient is on room air not requiring supplemental oxygen patient is s/p cardiac cath and seem to be slightly sleepy today postprocedure no vomiting diarrhea any other changes reported by nursing staff. Patient white count is 4.8, creatinine is 4.80 Vanco random is 24.3 Objective - Vital Signs Vital signs: Vital Signs Temp 97.1 F L 11/28/23 08:00 Pulse 65 11/28/23 08:00 Resp 16 11/28/23 08:00 BP 120/59 11/28/23 08:00 Pulse Ox 96 11/28/23 09:34 FiO2 Intake & Output 11/27/23 11/28/23 11/28/23 18:59 06:59 18:59 Intake Total 630 540 100 Output Total 1 Balance 630 539 100 Weight 84.8 kg Intake: IV 50 Intake, IV Titration 100 Amount Sodium Chloride 0.9% 500 100 ml 500 ml @ 0 mls/hr IV . [facility] Rx#: [id number] Oral 580 540 Output: Urine 1 Other: # Voids 0 # Bowel Movements 0 - Exam GENERAL DESCRIPTION: A middle-age male in bed in no distress RESPIRATORY SYSTEM: Unlabored breathing , decreased breath sounds at bases HEART: S1 S2 regular rate and rhythm , ABDOMEN: Soft , no tenderness EXTREMITIES: No edema feet - Labs CBC & Chem 7: 11/28/23 09:03 11/28/23 09:03 Labs: Abnormal Lab Results - Last 24 Hours (Table) 11/27/23 11/27/23 11/28/23 Range/Units 16:53 19:42 09:03 RBC (4.30-5.90) m/uL Hgb (13.0-17.5) gm/dL Hct (39.0-53.0) % MCV (80.0-100.0) fL RDW (11.5-15.5) % Sodium 129 L (137-145) mmol/L BUN 26 H (9-20) mg/dL Creatinine 4.80 H (0.66-1.25) mg/dL Glucose 185 H (74-99) mg/dL POC Glucose (mg/dL) 126 H 179 H (70-110) mg/dL Calcium 7.2 L (8.4-10.2) mg/dL 11/28/23 11/28/23 Range/Units 09:03 11:23 RBC 2.38 L (4.30-5.90) m/uL Hgb 7.7 L D (13.0-17.5) gm/dL Hct 24.3 L (39.0-53.0) % MCV 101.9 H (80.0-100.0) fL RDW 15.6 H (11.5-15.5) % Sodium (137-145) mmol/L BUN (9-20) mg/dL Creatinine (0.66-1.25) mg/dL Glucose (74-99) mg/dL POC Glucose (mg/dL) 260 H (70-110) mg/dL Calcium (8.4-10.2) mg/dL Assessment and Plan (1) Peritonitis Current Visit: Yes Status: Acute Code(s): K65.9 - PERITONITIS, UNSPECIFIED SNOMED Code(s): 75886231 (2) Peritoneal dialysis catheter infection Current Visit: No Status: Acute Code(s): T85.71XA - INFECT/INFLM REACTION DUE TO PERITON DIALYSIS CATHETER, INIT SNOMED Code(s): 158893608 Plan: 1patient presented to hospital with hyperglycemia and this patient who was recently diagnosed with a PD catheter associated peritonitis status post removal of the peritoneal dialysis catheter with a catheter tip culture positive for coagulase-negative staph for the patient was supposed to get IV vancomycin through the dialysis apparently the patient has been some of her dialysis now with abdominal pain and elevated white count concerning for partially treated PD catheter associated peritonitis. 2patient remains to be febrile white count has normalized, vancomycin level is therapeutic plan is to continue with the vancomycin through dialysis for another 10 days to finish his course of therapy Dictation was produced using [employer] software. please excuse any grammatical, word or spelling errors. Time with Patient: Less than 30
[2023-11-28 16:08] LABS: Glucose,Whole Blood 190 mg/dL (70-110)
[2023-11-28 18:31] VITALS: PULSE 70
[2023-11-28 21:07] VITALS: BP 174/83; RESP 16; TEMP 98.2
--- NOTE | 2023-11-28 21:56 | P.CARDCATH ---
Description of Procedure: PROCEDURES PERFORMED: Left heart catheterization, bilateral coronary angiography, ultrasound guided arterial access INDICATION: Non-STEMI CONSENT:I have discussed the risks, benefits and alternative therapies for the above-mentioned procedure and for both sedation/analgesia as well as necessary blood product administration, if indicated, as they pertain to this patient. The patient has indicated understanding and acceptance of the risks and procedures discussed. PROCEDURE: After the risks, benefits and alternatives of the above mentioned procedure explained in detail with the patient, informed consent was obtained. Patient was taken to the catheterization lab and prepped and draped in usual fashion. Ultrasound guidance was used to assess for arterial access. 1% lidocaine was used to anesthetize the right radial artery. A 6-Greenlandic sheath was placed in the right radial artery using modified Seldinger technique and ul trasound guidance. Left coronary angiography was performed with a 5-Greenlandic JL 3.5 catheter and right coronary angiography was performed with a 5-Greenlandic FR5 catheter in various views. A 5-Greenlandic FR5 catheter was inserted into the left ventricle and pressure measurements were obtained. The right radial sheath was removed and a TR band was placed with hemostasis achieved. The patient tolerated the procedure well. Patient was transported back to the post catheterization holding area in stable condition. Conscious Sedation: Patient was monitored under the direct supervision of myself for conscious sedation using Versed and fentanyl for a total duration of 9 minutes HEMODYNAMICS: Aorta: 138/71 OV: 141/4, LVEDP 14 SELECTIVE CORONARY ARTERIOGRAPHY: LEFT MAIN: The left main is a large caliber vessel which bifurcates into the LAD and circumflex. There is no significant stenosis. LEFT ANTERIOR DESCENDING CORONARY ARTERY: LAD is a large caliber vessel which wraps around to the apex. There are mild luminal irregularities of the mid LAD LEFT CIRCUMFLEX CORONARY ARTERY: Left circumflex is a moderate caliber vessel without significant stenosis. RIGHT CORONARY ARTERY: The right coronary artery is a large caliber vessel which gives off a PDA and PLV branch and is the dominant vessel. There are mild luminal irregularities of the mid RCA FINAL IMPRESSION: 1. Relatively normal coronary arteries of the mild luminal irregularities of the LAD and RCA 2. Normal left sided filling pressures PLAN: 1. Aggressive risk factor modification per most recent ACC/AHA guidelines. 2. Follow-up in the office in 1-2 weeks.
== END 2023-11-28 21:00 | disposition home or self-care (01) | DRG 919 ==
LOC: EC 04:22 → 3SCARD 06:32 → OBSVTOIN 11-27 16:16
PROVIDERS: ADMIT Internal Medicine; ATTEND Internal Medicine
PROC: 5A1D70Z Performance of Urinary Filtration, Intermittent, Less than 6 Hours Per Day (ICD-10-PCS; 2023-11-25)
PROC: 4A023N7 Measurement of Cardiac Sampling and Pressure, Left Heart, Percutaneous Approach (ICD-10-PCS; principal; 2023-11-28 10:30)
PROC: B2111ZZ Fluoroscopy of Multiple Coronary Arteries using Low Osmolar Contrast (ICD-10-PCS; principal; 2023-11-28 10:30)
PROC: 0JH63XZ Insertion of Tunneled Vascular Access Device into Chest Subcutaneous Tissue and Fascia, Percutaneous Approach (ICD-10-PCS; 2023-11-28 10:30)
PROC: 06H033Z Insertion of Infusion Device into Inferior Vena Cava, Percutaneous Approach (ICD-10-PCS; 2023-11-28 10:30)
DX: T85.71XA Infection and inflammatory reaction due to peritoneal dialysis catheter, initial encounter (principal); I21.A1 Myocardial infarction type 2; I50.21 Acute systolic (congestive) heart failure; K65.9 Peritonitis, unspecified; N18.6 End stage renal disease; I31.39 Other pericardial effusion (noninflammatory); I13.2 Hypertensive heart and chronic kidney disease with heart failure and with stage 5 chronic kidney disease, or end stage renal disease; I42.9 Cardiomyopathy, unspecified; E87.1 Hypo-osmolality and hyponatremia; E83.9 Disorder of mineral metabolism, unspecified; D63.1 Anemia in chronic kidney disease; E11.22 Type 2 diabetes mellitus with diabetic chronic kidney disease; E11.65 Type 2 diabetes mellitus with hyperglycemia; I08.8 Other rheumatic multiple valve diseases; Z99.2 Dependence on renal dialysis; Z79.4 Long term (current) use of insulin; E87.8 Other disorders of electrolyte and fluid balance, not elsewhere classified; T85.614A Breakdown (mechanical) of insulin pump, initial encounter; F41.9 Anxiety disorder, unspecified; E78.5 Hyperlipidemia, unspecified; Z79.891 Long term (current) use of opiate analgesic; Z79.899 Other long term (current) drug therapy; Z87.891 Personal history of nicotine dependence; Z96.41 Presence of insulin pump (external) (internal); Y74.2 Prosthetic and other implants, materials and accessory general hospital and personal-use devices associated with adverse incidents; Y83.8 Other surgical procedures as the cause of abnormal reaction of the patient, or of later complication, without mention of misadventure at the time of the procedure; Z91.041 Radiographic dye allergy status
CPT/HCPCS: 36415; 36558; 71045; 76937; 80048; 80053; 80202; 81001; 82009; 82728; 83540; 83550; 83735; 84100; 84484; 85025; 85027; 85610; 85730; 90935; 93005; 93306; 93458; 94760; 96365; 96366; 96368; 96375; 96376; 99291

== ENCOUNTER 2023-11-29 09:40 | Observation (INO) | payer BC ==
[2023-11-29] MEDS ORDERED: DESMOPRESSIN ACETATE 4 MCG/ML VIAL (MDV) IM STA (10:45)
--- NOTE | 2023-11-29 10:59 | ED ---
Recheck HPI - General Chief Complaint: Recheck/Abnormal Lab/Rx Stated Complaint: post op bleeding Time Seen by Provider: 11/29/23 09:54 Source: patient, RN notes reviewed Mode of arrival: ambulatory Limitations: no limitations - History of Present Illness Initial Comments: This is a 58-year-old male who presents to the emergency department for bleeding from his permacath site. Patient had a permacath placed in the left chest 2 days ago. He states that when he woke up this morning he noticed that the area was covered in blood. Denies any pain associated with this. Not currently taking any blood thinners. - Related Data Home Medications Medication Instructions Recorded Confirmed Insulin Aspart (For Pump) [NovoLOG 0.01 unit SQ-PUMP CONTINUOUS 02/21/23 11/29/23 (For Pump)] FLUoxetine HCL [PROzac] 10 mg PO DAILY 07/14/23 11/29/23 carvediloL [Coreg] 25 mg PO BID 07/14/23 11/29/23 Atorvastatin [Lipitor] 20 mg PO DAILY 11/14/23 11/29/23 Folic Acid/Vit B Complex and C 0.8 mg PO DAILY 11/14/23 11/29/23 [Lilian-Marsha Tablet] HYDROcodone/APAP 5-325MG [Thelma 1 tab PO Q6H 11/14/23 11/29/23 5-325] Ondansetron Odt [Zofran ODT] 4 mg PO Q6H PRN 11/14/23 11/29/23 amLODIPine [Norvasc] 10 mg PO DAILY 11/14/23 11/29/23 hydrALAZINE HCL [Apresoline] 100 mg PO TID 11/14/23 11/29/23 Darbepoetin John [Aranesp] 40 mcg SQ DIRECTED 11/29/23 11/29/23 Previous Rx's Medication Instructions Recorded Losartan [Cozaar] 50 mg PO DAILY #60 tab 07/16/23 Torsemide [Demadex] 40 mg PO DAILY #90 tab 11/17/23 Vancomycin See Rx Instructions .ROUTE 11/17/23 .COMPLEX #9 each Aspirin 81 mg PO DAILY 30 Days #30 tab 11/28/23 Allergies Allergy/AdvReac Type Severity Reaction Status Date / Time Iodinated Contrast Media Allergy Anaphylaxis Verified 11/29/23 15:42 Review of Systems ROS Statement: Those systems with pertinent positive or pertinent negative responses have been documented in the HPI. ROS Other: All systems not noted in ROS Statement are negative. Past Medical History Past Medical History: Diabetes Mellitus, Dialysis, Hyperlipidemia, Hypertension, Renal Disease Additional Past Medical History / Comment(s): IDDM type I on insulin pump, DKA, chronic kidney disease, bilateral lower extremity edema. peritoneal dialysis History of Any Multi-Drug Resistant Organisms: None Reported Past Surgical History: No Surgical Hx Reported Additional Past Surgical History / Comment(s): R knee arthroscopy, circumcism, HD cath in chest Past Anesthesia/Blood Transfusion Reactions: No Reported Reaction Past Psychological History: No Psychological Hx Reported Smoking Status: Former smoker Past Alcohol Use History: None Reported Past Drug Use History: Marijuana - Past Family History Mother History Unknown: Yes Family Medical History: COPD Father Family Medical History: No Reported History Additional Family Medical History / Comment(s): Mother is healthy. General Exam Limitations: no limitations General appearance: alert, in no apparent distress Head exam: Present: atraumatic, normocephalic, normal inspection Respiratory exam: Present: normal lung sounds bilaterally. Absent: respiratory distress, wheezes, rales, rhonchi, stridor Cardiovascular Exam: Present: regular rate, normal rhythm, normal heart sounds. Absent: systolic murmur, diastolic murmur, rubs, gallop, clicks Neurological exam: Present: alert, oriented X3, CN II-XII intact Psychiatric exam: Present: normal affect, normal mood Skin exam: Present: other (Permacath in place with active bleeding around the incision) Course Vital Signs 11/29/23 11/29/23 11/29/23 09:43 10:22 11:44 Temperature 98.2 F Pulse Rate 72 68 68 Pulse Rate [ Pulse Oximetery ] Respiratory 20 18 18 Rate Blood Pressure 149/65 136/83 150/86 Blood Pressure [Right Arm] O2 Sat by Pulse 97 97 97 Oximetry 11/29/23 11/29/23 11/29/23 13:47 14:51 16:57 Temperature 98.1 F Pulse Rate 68 69 69 Pulse Rate [ Pulse Oximetery ] Respiratory 18 18 18 Rate Blood Pressure 127/90 Blood Pressure [Right Arm] O2 Sat by Pulse 96 98 98 Oximetry 11/29/23 17:41 Temperature 98.3 F Pulse Rate Pulse Rate [ 70 Pulse Oximetery ] Respiratory 16 Rate Blood Pressure Blood Pressure 166/80 [Right Arm] O2 Sat by Pulse 97 Oximetry Medical Decision Making - Medical Decision Making This is a 58 year old male who presents to the emergency department for bleeding from his permacath. Was pt. sent in by a medical professional or institution? @ -No Did you speak to anyone other than the patient for history? @ -No Did you review nursing and triage notes? @ -Yes, and I agree, it is accurate with regards to the patient's symptoms. Were old charts reviewed? @ -No Differential Diagnosis? @ -Differential Permacath Bleeding: Coagulopathy, injury, placement, this is not meant to be an all-inclusive list. EKG interpreted by me (3pts min.)? @ -Not obtained X-rays interpreted by me (1pt min.)? @ -Not obtained CT interpreted by me (1pt min.)? @ -Not obtained U/S interpreted by me (1pt. min.)? @ -Not obtained What testing was considered but not performed? (CT, X-rays, U/S, labs)? Why? @ -None What meds were considered but not given? Why? @ -None Did you discuss the management of the patient with other professionals? @ -Yes, Dr. Su, who advised initially trying desmopressin with pressure dressings. Patient continued to bleed and he subsequently advised admission. Dr. Kerns accepts the patient for admission to medicine. Did you reconcile home meds? @ -Yes Was smoking cessation discussed for >3mins.? @ -No Was critical care preformed (if so, how long)? @ -No Were there social determinants of health that impacted care today? How? (Homelessness, low income, unemployed, alcoholism, drug addiction, transportation, low edu. Level, literacy, decrease access to med. care, nursing home, rehab)? @ -No Was there de-escalation of care discussed even if they declined? (Discuss DNR or withdrawal of care, Hospice)? @ -No What co-morbidities impacted this encounter? (DM, HTN, Smoking, COPD, CAD, Cancer, CVA, Hep., AIDS, mental health diagnosis, sleep apnea, morbid obesity)? @ -DM, ESRD on dialysis Was patient admitted / discharged? @ -Admitted. Case discussed with Dr. Su, vascular surgery on arrival. He advised a dose of desmopressin followed by pressure dressing. Pharmacist consulted regarding desmopressin dosage, and she advised 0.3 mcg/kg and calculated a dose of 24mcg which was administered. We went through 2 rounds of pressure dressing, and the patient bled through them both times. Case discussed with Dr. Su again, who came to evaluate the patient in the emergency department and advised admission for further management. Lab work demonstrates a hemoglobin of 7.7, which is stable when compared with prior. Renal function stable as well. Patient admitted to medicine with consult for Dr. Su, vascular surgery. Nephrology consulted as well due to this being a dialysis patient. Undiagnosed new problem with uncertain prognosis? @ -None Drug Therapy requiring intensive monitoring for toxicity (Heparin, Nitro, Insulin, Cardizem)? @ -None Were any procedures done? @ -None Diagnosis/symptom? @ -Bleeding from permacath, postop bleeding Acute, or Chronic, or Acute on Chronic? @ -Acute Uncomplicated (without systemic symptoms) or Complicated (systemic symptoms)? @ -Uncomplicated Side effects of treatment? @ -None Exacerbation, Progression, or Severe Exacerbation] @ -Not applicable Poses a threat to life or bodily function? @ -Yes, if the bleeding cannot be controlled this can be life threatening. This case was discussed in detail with the attending ED physician, Dr. Rizo. Presentation, findings, and treatment plan discussed in detail as well. - Lab Data Result diagrams: 11/29/23 15:11 11/29/23 15:11 Lab Results 11/29/23 11/29/23 11/29/23 Range/Units 15:11 15:11 15:11 WBC 7.6 (3.8-10.6) k/uL RBC 2.38 L (4.30-5.90) m/uL Hgb 7.7 L (13.0-17.5) gm/dL Hct 23.6 L (39.0-53.0) % MCV 99.1 (80.0-100.0) fL MCH 32.3 (25.0-35.0) pg MCHC 32.6 (31.0-37.0) g/dL RDW 16.6 H (11.5-15.5) % Plt Count 226 (150-450) k/uL MPV 8.4 Neutrophils % 69 % Lymphocytes % 17 % Monocytes % 7 % Eosinophils % 5 % Basophils % 0 % Neutrophils # 5.2 (1.3-7.7) k/uL Lymphocytes # 1.3 (1.0-4.8) k/uL Monocytes # 0.5 (0-1.0) k/uL Eosinophils # 0.4 (0-0.7) k/uL Basophils # 0.0 (0-0.2) k/uL Anisocytosis Slight Macrocytosis Slight PT 11.3 (10.0-12.5) sec INR 1.0 (<1.2) APTT 24.0 (22.0-30.0) sec Sodium 128 L (137-145) mmol/L Potassium 4.6 (3.5-5.1) mmol/L Chloride 95 L (98-107) mmol/L Carbon Dioxide 27 (22-30) mmol/L Anion Gap 6 mmol/L BUN 35 H (9-20) mg/dL Creatinine 3.87 H (0.66-1.25) mg/dL Est GFR (CKD-EPI)AfAm 19 (>60 ml/min/1.73 sqM) Est GFR (CKD-EPI)NonAf 16 (>60 ml/min/1.73 sqM) Glucose 280 H (74-99) mg/dL Calcium 7.3 L (8.4-10.2) mg/dL Total Bilirubin 0.2 (0.2-1.3) mg/dL AST 20 (17-59) U/L ALT 9 (4-49) U/L Alkaline Phosphatase 99 (38-126) U/L Total Protein 4.9 L (6.3-8.2) g/dL Albumin 2.4 L (3.5-5.0) g/dL Disposition Clinical Impression: Post-op bleeding, Bleeding due to dialysis catheter placement Disposition: ADMITTED IP TO THIS [facility] Time of Disposition: 15:37
[2023-11-29] MEDS: GELATIN SPONGE,ABSORB (SMALL) 1 EACH SPONGE TOPICAL STA (11:50)
[2023-11-29] MEDS: DESMOPRESSIN ACETATE 24 MCG in SODIUM CHLORIDE 0.9% 50 ML IVPB ONE (11:50)
[2023-11-29] MEDS: LIDOCAINE 1% INJ 10MG/ML (20 ML MDV) SQ ONE (14:50)
[2023-11-29 15:17] LABS: Anisocytosis Slight; Basophils % (A) 0 %; Eosinophils # (A) 0.4 k/uL (0-0.7); Eosinophils % (A) 5 %; HCT 23.6 % (39.0-53.0); HGB 7.7 gm/dL (13.0-17.5); Lymphocytes # (A) 1.3 k/uL (1.0-4.8); Lymphocytes % (A) 17 %; MCH 32.3 pg (25.0-35.0); MCHC 32.6 g/dL (31.0-37.0); MCV 99.1 fL (80.0-100.0); Macrocytosis Slight; Mean Platelet Volume 8.4; Monocytes # (A) 0.5 k/uL (0-1.0); Monocytes % (A) 7 %; Neutrophils # (A) 5.2 k/uL (1.3-7.7); Neutrophils % (A) 69 %; Platelet Count 226 k/uL (150-450); RBC 2.38 m/uL (4.30-5.90); RDW 16.6 % (11.5-15.5); WBC 7.6 k/uL (3.8-10.6)
[2023-11-29 15:33] LABS: ALT 9 U/L (4-49); AST 20 U/L (17-59); African American GFR (CKD) 19 (>60 ml/min/1.73 sqM); Albumin 2.4 g/dL (3.5-5.0); Alkaline Phosphatase 99 U/L (38-126); Anion Gap 6 mmol/L; Blood Urea Nitrogen 35 mg/dL (9-20); Calcium 7.3 mg/dL (8.4-10.2); Carbon Dioxide 27 mmol/L (22-30); Chloride 95 mmol/L (98-107); Glucose 280 mg/dL (74-99); Non-African American GFR(CKD) 16 (>60 ml/min/1.73 sqM); Potassium 4.6 mmol/L (3.5-5.1); Prothrombin Time 11.3 sec (10.0-12.5); Sodium 128 mmol/L (137-145); Total Bilirubin 0.2 mg/dL (0.2-1.3); Total Protein 4.9 g/dL (6.3-8.2)
[2023-11-29] MEDS ORDERED: NALOXONE 0.4 MG/ML 1 ML VIAL IV PRN (15:44)
[2023-11-29] MEDS ORDERED: ONDANSETRON 4 MG/2 ML VIAL IVP PRN (15:44)
[2023-11-29] MEDS ORDERED: ACETAMINOPHEN TAB 325 MG TAB PO PRN (15:44)
[2023-11-29] MEDS ORDERED: HYDROcodone/APAP 5-325MG 1 EACH TAB PO PRN (15:44)
[2023-11-29] MEDS ORDERED: ONDANSETRON ODT 4 MG TAB PO PRN (15:47)
[2023-11-29] MEDS: hydrALAZINE HCL 50 MG TAB PO SCH (17:23)
[2023-11-29] MEDS: HYDROcodone/APAP 5-325MG 1 EACH TAB PO SCH (17:23)
[2023-11-29] MEDS ORDERED: DEXTROSE 50% SYRINGE 50 ML IVP PRN ×2 (17:52)
--- NOTE | 2023-11-29 17:58 | P.HPIM ---
History of Present Illness H&P Date: 11/29/23 History of presenting illness: Patient is a pleasant 58-year-old male with a past medical history of ESRD on peritoneal dialysis, recently diagnosed systolic heart failure with EF of 40%, moderate pulmonary hypertension, hypertension, hyperlipidemia, and insulin- dependent diabetes mellitus on insulin pump. He is well-known to our service and is currently on IV antibiotics with vancomycin for recently diagnosed peritonitis from previous peritoneal dialysis catheter infection and underwent recent hospitalization for newly diagnosed systolic heart failure. Patient presented to the emergency department today secondary to bleeding from his dialysis permanent site recently placed in left anterior chest 2 days prior. Patient reports awakening this morning and noting moderate bleeding from site. He denies any pain at site and denies having any dizziness, lightheadedness, headache, chest pain, palpitations, shortness of breath, or experiencing any numbness/tingling/weakness/swelling with his extremities. He underwent evaluation in the emergency department. Vital signs upon arrival show blood pressure 149/65, heart rate 72, respiratory rate 20, temp 98.2 F, and SpO2 of 97% on room air. Labs were completed and reviewed. CBC showing stable h emoglobin of 7.7 (unchanged from hemoglobin upon discharge on 11/28/2023). Coagulation profile normal findings. BMP showing hyponatremia with sodium of 128, hypochloremia with chloride of 95 and renal function consistent with known ESRD with BUN of 35, creatinine 3.87, and GFR of 16. Blood glucose 280. Patient admitted under our services with consultation to vascular surgery team and nephrology. Review of systems: Pertinent positives and negatives as discussed in HPI, a complete review of systems was performed and all other systems are negative. Physical exam: Vital signs reviewed and stable. General: Nontoxic, no distress and appears stated age. Derm: Skin warm and dry, normal coloration for ethnicity. Head: Atraumatic, normocephalic and symmetric. Eyes: EOMs intact, no lid lag, and anicteric sclera Mouth: no lip lesions, mucus membranes moist Cardiovascular: regular rate and rhythm with normal S1S2, systolic murmur, positive posterior tibial pulses bilaterally, and cap refill < 2 seconds. Dialysis catheter/Temo cath left anterior chest with moderate bleeding, pressure dressing applied.. Lungs: Respirations even, regular, and unlabored on room air. Lungs CTA bilaterally, no rhonchi, no rales, no wheezing, and no accessory muscle usage. Abdominal: soft, nontender to palpation, no guarding, no appreciable organomegaly Ext: ROM intact. No gross muscle atrophy, no edema, no contractures Neuro: Speech clear, face symmetrical and CN II-XII grossly intact with no noted focal neuro deficits Psych: Alert and oriented to person, place, time, and situation. Appropriate and pleasant affect. Assessment and Plan of Care: Bleeding from Temo catheter site ESRD on hemodialysis Friday/Friday/Fridays. Hypervolemic hyponatremia secondary to fluid volume overload. Anemia of chronic disease secondary to ESRD -Nephrology consulted for management of hemodialysis -Vascular surgery was consulted secondary to bleeding from Temo catheter site and discussed case with Dr. Su -Hemoglobin stable at 7.7 however patient with active bleeding, we will transfuse 1 unit of PRBCs now and continue to monitor CBC closely. We will further transfuse if needed for hemoglobin less than 7. -Continue Aranesp. -Telemetry monitoring. Diabetes mellitus with hyperglycemia -Patient to continue use of personal insulin pump. Recently diagnosed systolic heart failure with a EF of 40%. Patient to continue cardiac medication regimen with aspirin 81 mg daily, amlodipine 10 mg daily, atorvastatin 20 mg daily, carvedilol 25 mg twice daily, hydralazine 100 mg 3 times daily, losartan 50 mg daily, and torsemide 40 mg daily. Peritonitis. Recent peritoneal dialysis catheter infection resulting in perit onitis. Infectious disease following outpatient and managing patient's IV antibiotics with vancomycin. Patient to continue vancomycin with renal dosing per pharmacy and we will continue to monitor vancomycin trough closely. Hypertension. Continue medication regimen with amlodipine 10 mg daily,carvedilol 25 mg twice daily, hydralazine 100 mg 3 times daily, losartan 100 mg daily, and torsemide 40 mg daily. Hyperlipidemia. Continue medication regimen with atorvastatin 20 mg daily. Data and imaging reviewed: -As stated above in HPI CODE STATUS: Full code DVT prophylaxis: SCDs secondary to actively bleeding from hemodialysis access site Anticipated discharge date: Clinical course to determine Anticipated discharge place: Clinical course to determine. Patient was seen independently by Nurse Pracitioner. This document was prepared using [employer] dictation software. Please allow for errors in winder operator, while rare they do occur. I reviewed the documentation as provided by the DAMIÁN above, who is the original author of this note. I agree with the documented assessment and plan, with the following changes: none Past Medical History Past Medical History: Diabetes Mellitus, Dialysis, Hyperlipidemia, Hypertension, Renal Disease Additional Past Medical History / Comment(s): IDDM type I on insulin pump, DKA, chronic kidney disease, bilateral lower extremity edema. peritoneal dialysis History of Any Multi-Drug Resistant Organisms: None Reported Past Surgical History: No Surgical Hx Reported Additional Past Surgical History / Comment(s): R knee arthroscopy, circumcism, HD cath in chest Past Anesthesia/Blood Transfusion Reactions: No Reported Reaction Past Psychological History: No Psychological Hx Reported Smoking Status: Former smoker Past Alcohol Use History: None Reported Past Drug Use History: Marijuana - Past Family History Mother History Unknown: Yes Family Medical History: COPD Father Family Medical History: No Reported History Additional Family Medical History / Comment(s): Mother is healthy. Medications and Allergies Home Medications Medication Instructions Recorded Confirmed Type Insulin Aspart (For Pump) [NovoLOG 0.01 unit SQ-PUMP CONTINUOUS 02/21/23 11/29/23 History (For Pump)] FLUoxetine HCL [PROzac] 10 mg PO DAILY 07/14/23 11/29/23 History carvediloL [Coreg] 25 mg PO BID 07/14/23 11/29/23 History Losartan [Cozaar] 50 mg PO DAILY #60 tab 07/16/23 11/29/23 Rx Atorvastatin [Lipitor] 20 mg PO DAILY 11/14/23 11/29/23 History Folic Acid/Vit B Complex and C 0.8 mg PO DAILY 11/14/23 11/29/23 History [Lilian-Marsha Tablet] HYDROcodone/APAP 5-325MG [Barnwell 1 tab PO Q6H 11/14/23 11/29/23 History 5-325] Ondansetron Odt [Zofran ODT] 4 mg PO Q6H PRN 11/14/23 11/29/23 History amLODIPine [Norvasc] 10 mg PO DAILY 11/14/23 11/29/23 History hydrALAZINE HCL [Apresoline] 100 mg PO TID 11/14/23 11/29/23 History Torsemide [Demadex] 40 mg PO DAILY #90 tab 11/17/23 11/29/23 Rx Vancomycin See Rx Instructions .ROUTE 11/17/23 11/29/23 Rx .COMPLEX #9 each Aspirin 81 mg PO DAILY 30 Days #30 tab 11/28/23 11/29/23 Rx Darbepoetin John [Aranesp] 40 mcg SQ DIRECTED 11/29/23 11/29/23 History Allergies Allergy/AdvReac Type Severity Reaction Status Date / Time Iodinated Contrast Media Allergy Anaphylaxis Verified 11/29/23 15:42 Physical Exam Vitals: Vital Signs Temp Pulse Resp BP Pulse Ox 11/29/23 16:57 98.1 F 69 18 127/90 98 11/29/23 14:51 69 18 98 11/29/23 13:47 68 18 96 11/29/23 11:44 68 18 150/86 97 11/29/23 10:22 68 18 136/83 97 11/29/23 09:43 98.2 F 72 20 149/65 97 Intake and Output 11/29/23 11/29/23 11/29/23 06:59 14:59 22:59 Other: Weight 81.647 kg Results CBC & Chem 7: 11/30/23 14:48 11/30/23 05:01 Labs: Abnormal Lab Results - Last 24 Hours (Table) 11/29/23 11/29/23 Range/Units 15:11 15:11 RBC 2.38 L (4.30-5.90) m/uL Hgb 7.7 L (13.0-17.5) gm/dL Hct 23.6 L (39.0-53.0) % RDW 16.6 H (11.5-15.5) % Sodium 128 L (137-145) mmol/L Chloride 95 L (98-107) mmol/L BUN 35 H (9-20) mg/dL Creatinine 3.87 H (0.66-1.25) mg/dL Glucose 280 H (74-99) mg/dL Calcium 7.3 L (8.4-10.2) mg/dL Total Protein 4.9 L (6.3-8.2) g/dL Albumin 2.4 L (3.5-5.0) g/dL
[2023-11-29] MEDS ORDERED: VANCOMYCIN IV PER PHARMACY 1 EACH MISC MISCELLANE PRN ×2 (18:23→19:21)
[2023-11-29] MEDS: DARBEPOETIN ALFA 40 MCG/0.4 ML SYRINGE SQ SCH (18:27)
--- NOTE | 2023-11-29 18:46 | P.GSCN ---
History of Present Illness History of present illness: 58-year-old gentleman patient has history of for renal failure we placed a dialysis catheter patient came with bleeding from the from the dialysis catheter exit site of the catheter patient had a dialysis yesterday and now his going to have dialysis on Friday. Has a history of diabetes, hypertension, chronic kidney disease, Neck examination patient has a left IJ catheter which is bleeding from the exit site of catheter Chest is clear good entry both lung. Second sound present Abdomen soft nontender Femorals are present bilateral Plan is to change dressing and put a pursestring suture around the exit site of catheter and pressure dressing applied patient hemoglobin 7.7 will give 1 unit of blood and also will give DDAVP we will follow with you Past Medical History Past Medical History: Diabetes Mellitus, Dialysis, Hyperlipidemia, Hypertension, Renal Disease Additional Past Medical History / Comment(s): IDDM type I on insulin pump, DKA, chronic kidney disease, bilateral lower extremity edema. peritoneal dialysis History of Any Multi-Drug Resistant Organisms: None Reported Past Surgical History: No Surgical Hx Reported Additional Past Surgical History / Comment(s): R knee arthroscopy, circumcism, HD cath in chest Past Anesthesia/Blood Transfusion Reactions: No Reported Reaction Past Psychological History: No Psychological Hx Reported Smoking Status: Former smoker Past Alcohol Use History: None Reported Past Drug Use History: Marijuana - Past Family History Mother History Unknown: Yes Family Medical History: COPD Father Family Medical History: No Reported History Additional Family Medical History / Comment(s): Mother is healthy. Medications and Allergies Home Medications Medication Instructions Recorded Confirmed Type Insulin Aspart (For Pump) [NovoLOG 0.01 unit SQ-PUMP CONTINUOUS 02/21/23 11/29/23 History (For Pump)] FLUoxetine HCL [PROzac] 10 mg PO DAILY 07/14/23 11/29/23 History carvediloL [Coreg] 25 mg PO BID 07/14/23 11/29/23 History Losartan [Cozaar] 50 mg PO DAILY #60 tab 07/16/23 11/29/23 Rx Atorvastatin [Lipitor] 20 mg PO DAILY 11/14/23 11/29/23 History Folic Acid/Vit B Complex and C 0.8 mg PO DAILY 11/14/23 11/29/23 History [Lilian-Marsha Tablet] HYDROcodone/APAP 5-325MG [[place] 1 tab PO Q6H 11/14/23 11/29/23 History 5-325] Ondansetron Odt [Zofran ODT] 4 mg PO Q6H PRN 11/14/23 11/29/23 History amLODIPine [Norvasc] 10 mg PO DAILY 11/14/23 11/29/23 History hydrALAZINE HCL [Apresoline] 100 mg PO TID 11/14/23 11/29/23 History Torsemide [Demadex] 40 mg PO DAILY #90 tab 11/17/23 11/29/23 Rx Vancomycin See Rx Instructions .ROUTE 11/17/23 11/29/23 Rx .COMPLEX #9 each Aspirin 81 mg PO DAILY 30 Days #30 tab 11/28/23 11/29/23 Rx Darbepoetin John [Aranesp] 40 mcg SQ DIRECTED 11/29/23 11/29/23 History Allergies Allergy/AdvReac Type Severity Reaction Status Date / Time Iodinated Contrast Media Allergy Anaphylaxis Verified 11/29/23 15:42 Surgical - Exam Vital Signs Temp Pulse Resp BP Pulse Ox 98.2 F 72 20 149/65 97 11/29/23 09:43 11/29/23 09:43 11/29/23 09:43 11/29/23 09:43 11/29/23 09:43 Results - Labs 11/29/23 15:11 11/29/23 15:11 Abnormal Lab Results - Last 24 Hours (Table) 11/29/23 11/29/23 Range/Units 15:11 15:11 RBC 2.38 L (4.30-5.90) m/uL Hgb 7.7 L (13.0-17.5) gm/dL Hct 23.6 L (39.0-53.0) % RDW 16.6 H (11.5-15.5) % Sodium 128 L (137-145) mmol/L Chloride 95 L (98-107) mmol/L BUN 35 H (9-20) mg/dL Creatinine 3.87 H (0.66-1.25) mg/dL Glucose 280 H (74-99) mg/dL Calcium 7.3 L (8.4-10.2) mg/dL Total Protein 4.9 L (6.3-8.2) g/dL Albumin 2.4 L (3.5-5.0) g/dL Diabetes panel 11/29/23 Range/Units 15:11 Sodium 128 L (137-145) mmol/L Potassium 4.6 (3.5-5.1) mmol/L Chloride 95 L (98-107) mmol/L Carbon Dioxide 27 (22-30) mmol/L BUN 35 H (9-20) mg/dL Creatinine 3.87 H (0.66-1.25) mg/dL Glucose 280 H (74-99) mg/dL Calcium 7.3 L (8.4-10.2) mg/dL AST 20 (17-59) U/L ALT 9 (4-49) U/L Alkaline Phosphatase 99 (38-126) U/L Total Protein 4.9 L (6.3-8.2) g/dL Albumin 2.4 L (3.5-5.0) g/dL Calcium panel 11/29/23 Range/Units 15:11 Calcium 7.3 L (8.4-10.2) mg/dL Albumin 2.4 L (3.5-5.0) g/dL Pituitary panel 11/29/23 Range/Units 15:11 Sodium 128 L (137-145) mmol/L Potassium 4.6 (3.5-5.1) mmol/L Chloride 95 L (98-107) mmol/L Carbon Dioxide 27 (22-30) mmol/L BUN 35 H (9-20) mg/dL Creatinine 3.87 H (0.66-1.25) mg/dL Glucose 280 H (74-99) mg/dL Calcium 7.3 L (8.4-10.2) mg/dL Adrenal panel 11/29/23 Range/Units 15:11 Sodium 128 L (137-145) mmol/L Potassium 4.6 (3.5-5.1) mmol/L Chloride 95 L (98-107) mmol/L Carbon Dioxide 27 (22-30) mmol/L BUN 35 H (9-20) mg/dL Creatinine 3.87 H (0.66-1.25) mg/dL Glucose 280 H (74-99) mg/dL Calcium 7.3 L (8.4-10.2) mg/dL Total Bilirubin 0.2 (0.2-1.3) mg/dL AST 20 (17-59) U/L ALT 9 (4-49) U/L Alkaline Phosphatase 99 (38-126) U/L Total Protein 4.9 L (6.3-8.2) g/dL Albumin 2.4 L (3.5-5.0) g/dL
[2023-11-29] MEDS: Insulin Aspart (For Pump) 100 UNIT/ML VIAL SQ-PUMP SCH (20:56)
[2023-11-29] MEDS: CARVEDILOL 25 MG PO SCH (20:59)
[2023-11-29 21:06] LABS: Glucose,Whole Blood 445 mg/dL (70-110)
[2023-11-29 21:57] LABS: Anisocytosis Slight; Basophils % (A) 1 %; Eosinophils # (A) 0.4 k/uL (0-0.7); Eosinophils % (A) 7 %; HCT 23.9 % (39.0-53.0); HGB 7.4 gm/dL (13.0-17.5); Hypochromasia Slight; Lymphocytes # (A) 0.8 k/uL (1.0-4.8); Lymphocytes % (A) 13 %; MCH 32.1 pg (25.0-35.0); MCHC 30.9 g/dL (31.0-37.0); MCV 103.9 fL (80.0-100.0); Macrocytosis Moderate; Mean Platelet Volume 8.2; Monocytes # (A) 0.4 k/uL (0-1.0); Monocytes % (A) 6 %; Neutrophils # (A) 4.5 k/uL (1.3-7.7); Neutrophils % (A) 72 %; Platelet Count 207 k/uL (150-450); RDW 16.7 % (11.5-15.5); WBC 6.2 k/uL (3.8-10.6)
[2023-11-30] MEDS ORDERED: HEPARIN SODIUM,PORCINE 5,000 UNIT/ML 1 ML VIAL SQ SCH
[2023-11-30] MEDS: ALPRAZolam 0.25 MG TAB PO STA (00:09)
[2023-11-30 06:16] LABS: Glucose,Whole Blood 201 mg/dL (70-110)
[2023-11-30] MEDS: FOLIC ACID-VIT B COMPLEX-VIT C 1 CAP PO SCH (08:20)
[2023-11-30] MEDS: ASPIRIN 81 MG PO SCH (08:20)
[2023-11-30] MEDS: TORSEMIDE 20 MG TAB PO SCH (08:20)
[2023-11-30] MEDS: ATORVASTATIN 20 MG TAB PO SCH (08:20)
[2023-11-30] MEDS: LOSARTAN 50 MG TAB PO SCH (08:20)
[2023-11-30] MEDS: FLUoxetine HCL 10 MG CAP PO SCH (08:20)
[2023-11-30] MEDS: amLODIPine 10 MG TAB PO SCH (08:21)
[2023-11-30 10:59] LABS: HCT 23.9 % (39.6-50.0); HGB 7.6 g/dL (13.0-17.0); MCH 31.5 pg (27.0-32.0); MCHC 31.8 g/dL (32.0-37.0); MCV 99.2 FL (80.0-97.0); Mean Platelet Volume 11.1 FL (9.5-12.2); NRBC Per 100 WBC 0 X 10*3/uL (0.00-0.01); Platelet Count 212 X 10*3/uL (140-440); RBC 2.41 X 10*6/uL (4.40-5.60); RDW 16.5 % (11.5-14.5); WBC 7.26 X 10*3/uL (4.50-10.00)
[2023-11-30 11:24] LABS: ALT 22 U/L (10-49); AST 23 U/L (14-35); Albumin/Globulin Ratio 1.43 Ratio (1.60-3.17); Alkaline Phosphatase 109 U/L (41-126); BUN/Creat Ratio 7.56 Ratio (12.00-20.00); Blood Urea Nitrogen 39.3 mg/dL (9.0-27.0); Calcium 7.8 mg/dL (8.7-10.3); Carbon Dioxide 26.7 mmol/L (21.6-31.8); Chloride 96 mmol/L (96-109); Globulin 2.1 g/dL (1.6-3.3); Glucose 248 mg/dL (70-110); Magnesium 2.4 mg/dL (1.5-2.4); Potassium 4.5 mmol/L (3.5-5.5); Sodium 135 mmol/L (135-145); Total Bilirubin <0.2 mg/dL (0.3-1.2); Total Protein 5.1 g/dL (6.2-8.2)
--- NOTE | 2023-11-30 12:09 | P.NPCON ---
History of Present Illness - Reason for Consult Consult date: 11/30/23 - Chief Complaint Permcath bleeding - History of Present Illness Patient is a pleasant 58-year-old male with a past medical history of ESRD on peritoneal dialysis, recently diagnosed systolic heart failure with EF of 40%, moderate pulmonary hypertension, hypertension, hyperlipidemia, and insulin- dependent diabetes mellitus on insulin pump. He is well-known to our service and is currently on IV antibiotics with vancomycin for recently diagnosed peritonitis from previous peritoneal dialysis catheter infection and underwent recent hospitalization for newly diagnosed systolic heart failure. Patient presented to the emergency department today secondary to bleeding from his dialysis permanent site recently placed in left anterior chest 2 days prior. Patient reports awakening this morning and noting moderate bleeding from site. He denies any pain at site and denies having any dizziness, lightheadedness, headache, chest pain, palpitations, shortness of breath, or experiencing any numbness/tingling/weakness/swelling with his extremities. Bleeding seems to have improved over night and has not had to have the dressing changed this morning. Vital signs are stable. General: No acute distress. HEENT: Head exam is unremarkable. LUNGS: No audible rhonchi or wheezes. HEART: Rate and Rhythm are regular. ABDOMEN: Nontender. EXTREMITITES: No edema. Review of Systems Constitutional: Reports as per HPI Past Medical History Past Medical History: Diabetes Mellitus, Dialysis, Hyperlipidemia, Hypertension, Renal Disease Additional Past Medical History / Comment(s): IDDM type I on insulin pump, DKA, chronic kidney disease, bilateral lower extremity edema. peritoneal dialysis History of Any Multi-Drug Resistant Organisms: None Reported Past Surgical History: No Surgical Hx Reported Additional Past Surgical History / Comment(s): R knee arthroscopy, circumcism, HD cath in chest Past Anesthesia/Blood Transfusion Reactions: No Reported Reaction Past Psychological History: No Psychological Hx Reported Smoking Status: Former smoker Past Alcohol Use History: None Reported Past Drug Use History: Marijuana - Past Family History Mother History Unknown: Yes Family Medical History: COPD Father Family Medical History: No Reported History Additional Family Medical History / Comment(s): Mother is healthy. Medications and Allergies Home Medications Medication Instructions Recorded Confirmed Type Insulin Aspart (For Pump) [NovoLOG 0.01 unit SQ-PUMP CONTINUOUS 02/21/23 4 History (For Pump)] FLUoxetine HCL [PROzac] 10 mg PO DAILY 07/14/23 11/29/23 History carvediloL [Coreg] 25 mg PO BID 07/14/23 11/29/23 History Losartan [Cozaar] 50 mg PO DAILY #60 tab 07/16/23 11/29/23 Rx Atorvastatin [Lipitor] 20 mg PO DAILY 11/14/23 11/29/23 History Folic Acid/Vit B Complex and C 0.8 mg PO DAILY 11/14/23 11/29/23 History [Lilian-Marsha Tablet] HYDROcodone/APAP 5-325MG [[place] 1 tab PO Q6H 11/14/23 11/29/23 History 5-325] Ondansetron Odt [Zofran ODT] 4 mg PO Q6H PRN 11/14/23 11/29/23 History amLODIPine [Norvasc] 10 mg PO DAILY 11/14/23 11/29/23 History hydrALAZINE HCL [Apresoline] 100 mg PO TID 11/14/23 11/29/23 History Torsemide [Demadex] 40 mg PO DAILY #90 tab 11/17/23 11/29/23 Rx Vancomycin See Rx Instructions .ROUTE 11/17/23 11/29/23 Rx .COMPLEX #9 each Aspirin 81 mg PO DAILY 30 Days #30 tab 11/28/23 11/29/23 Rx Darbepoetin John [Aranesp] 40 mcg SQ DIRECTED 11/29/23 11/29/23 History Allergies Allergy/AdvReac Type Severity Reaction Status Date / Time Iodinated Contrast Media Allergy Anaphylaxis Verified 11/29/23 15:42 Physical Exam Vitals: Vital Signs Temp Pulse Pulse Resp BP BP Pulse Ox 11/30/23 08:00 70 18 11/30/23 07:00 97.5 F L 60 16 161/86 96 11/30/23 02:36 97.6 F 68 18 170/86 95 11/30/23 02:25 97.6 F 70 19 163/86 96 11/30/23 02:15 97.6 F 69 18 163/86 11/30/23 02:00 69 18 11/29/23 23:26 97.7 F 74 18 172/86 11/29/23 23:06 97.5 F L 74 18 165/85 11/29/23 22:57 97.4 F L 75 18 162/86 96 05/11/24 21:00 69 18 11/29/23 19:19 97.5 F L 69 15 162/78 96 11/29/23 17:41 98.3 F 70 16 166/80 97 11/29/23 16:57 98.1 F 69 18 127/90 98 11/29/23 14:51 69 18 98 11/29/23 13:47 68 18 96 11/29/23 11:44 68 18 150/86 97 Intake and Output 11/29/23 11/30/23 11/30/23 22:59 06:59 14:59 Intake Total 118 310 240 Output Total 250 Balance 118 310 -10 Intake: Oral 118 240 Blood Product 0 310 Rc As-1 Unit 0 310 [id number] Output: Urine 250 Other: Voiding Method Toilet Urinal # Voids 1 Weight 81.647 kg Results - Lab Results Most recent lab results Calcium 7.3 mg/dL (8.4-10.2) L 11/29/23 15:11 11/30/23 05:01 11/30/23 05:01 Assessment and Plan Plan: Assessment: 1. End-stage renal disease on HD MWF at [facility] under ri. 2. Refractory peritonitis s/p PD catheter removal and IV ABX. 3. Hypertension with chronic kidney disease. 4. Diabetes mellitus. 5. Chronic kidney disease mineral bone disease. Phosphorus 6.0, start binders with meals. 6. Bleeding Permcath Plan: Vascular surgery consulted Received DDAVP in ED, repeat dosing not effective. Bleeding seems to have stopped his morning. Clear for discharge form nephrology standpoint. HD scheduled for tomorrow if still admitted.
[2023-11-30 12:48] LABS: Glucose,Whole Blood 228 mg/dL (70-110)
[2023-11-30 14:59] VITALS: PULSE 103; RESP 16; TEMP 97.8
[2023-11-30 15:48] LABS: Anisocytosis Slight; HCT 26.1 % (39.0-53.0); HGB 8.2 gm/dL (13.0-17.5); Hypochromasia Slight; MCH 31.8 pg (25.0-35.0); MCHC 31.3 g/dL (31.0-37.0); MCV 101.5 fL (80.0-100.0); Macrocytosis Moderate; Mean Platelet Volume 8.4; Platelet Count 216 k/uL (150-450); RBC 2.57 m/uL (4.30-5.90); RDW 17.3 % (11.5-15.5); WBC 7.2 k/uL (3.8-10.6)
[2023-11-30 16:17] VITALS: BP 170/83
[2023-11-30 17:03] LABS: Glucose,Whole Blood 191 mg/dL (70-110)
--- NOTE | 2023-11-30 17:29 | P.DS ---
Providers Date of admission: 11/29/23 15:33 Expected date of discharge: 11/30/23 Attending physician: Jovanna Kerns DO Consults: 11/29/23 15:44 Consult Physician Urgent Consulting Provider: Dylan Su Consult Reason/Comments: Bleeding from permacath site Do you want consulting provider notified?: Already Contacted Consult Physician Urgent Consulting Provider: Sukhwinder Martinez Consult Reason/Comments: Dialysis patient, bleeding from permacath site Do you want consulting provider notified?: Yes Primary care physician: Devon Mattson Hospital Course: Discharge Diagnosis: Bleeding from Temo catheter site. Patient was evaluated by vascular surgery and suture replaced in the ED vascular surgeon. Pressure dressing was applied, patient received DDAVP and 1 unit PRBCs and had no further episodes of bleeding. Hemoglobin is stable at 8.2. Patient evaluated by Food Service Aide richard mae from nephrology standpoint to follow-up outpatient for dialysis as scheduled tomorrow. Patient medically cleared for discharge at this time. ESRD on hemodialysis Friday/Friday/Fridays. Hypervolemic hyponatremia secondary to fluid volume overload. Sodium stable at 135 on discharge. Anemia of chronic disease secondary to ESRD Diabetes mellitus with hyperglycemia Patient to continue use of personal insulin pump. Recently diagnosed systolic heart failure with a EF of 40%. Patient to continue cardiac medication regimen with aspirin 81 mg daily, amlodipine 10 mg daily, atorvastatin 20 mg daily, carvedilol 25 mg twice daily, hydralazine 100 mg 3 times daily, losartan 50 mg daily, and torsemide 40 mg daily. Peritonitis. Recent peritoneal dialysis catheter infection resulting in peritonitis. Infectious disease following outpatient and managing patient's IV antibiotics with vancomycin. Patient to continue vancomycin with dialysis and levels and dosing managed per infectious disease physician. Hypertension. Continue medication regimen with amlodipine 10 mg daily,carvedilol 25 mg twice daily, hydralazine 100 mg 3 times daily, losartan 100 mg daily, and torsemide 40 mg daily. Hyperlipidemia. Continue medication regimen with atorvastatin 20 mg daily. Hospital Course: Patient is a pleasant 58-year-old male with a past medical history of ESRD on peritoneal dialysis, recently diagnosed systolic heart failure with EF of 40%, moderate pulmonary hypertension, hypertension, hyperlipidemia, and insulin- dependent diabetes mellitus on insulin pump. He is well-known to our service and is currently on IV antibiotics with vancomycin for recently diagnosed peritonitis from previous peritoneal dialysis catheter infection and underwent recent hospitalization for newly diagnosed systolic heart failure. Patient presented to the emergency department today secondary to bleeding from his dialysis permanent site recently placed in left anterior chest 2 days prior. Patient reports awakening this morning and noting moderate bleeding from site. He denies any pain at site and denies having any dizziness, lightheadedness, headache, chest pain, palpitations, shortness of breath, or experiencing any numbness/tingling/weakness/swelling with his extremities. He underwent evaluation in the emergency department. Vital signs upon arrival show blood pressure 149/65, heart rate 72, respiratory rate 20, temp 98.2 F, and SpO2 of 97% on room air. Labs were completed and reviewed. CBC showing stable hemoglobin of 7.7 (unchanged from hemoglobin upon discharge on 11/28/2023). Coagulation profile normal findings. BMP showing hyponatremia with sodium of 128, hypochloremia with chloride of 95 and renal function consistent with known ESRD with BUN of 35, creatinine 3.87, and GFR of 16. Blood glucose 280. Patient admitted under our services with consultation to vascular surgery team and nephrology. Pressure dressing was applied, patient received DDAVP and 1 unit PRBCs and had no further episodes of bleeding. Hemoglobin was trended and r emained stable. Hemoglobin 8.2 upon discharge with no further episodes of bleeding. Patient cleared from vascular surgery perspective for discharge. He was evaluated by Food Service Aide clearing him from nephrology standpoint to follow- up outpatient for dialysis as scheduled tomorrow. Patient medically stable at this time and being discharged home. Patient to continue with IV vancomycin during dialysis sessions as previously ordered and being managed outpatient by infectious disease physician Dr. Rodriguez. Physical exam: Vital signs reviewed and stable. General: Nontoxic, no distress and appears stated age. Derm: Skin warm and dry, normal coloration for ethnicity. Head: Atraumatic, normocephalic and symmetric. Eyes: EOMs intact, no lid lag, and anicteric sclera Mouth: no lip lesions, mucus membranes moist Cardiovascular: regular rate and rhythm with normal S1S2, systolic murmur, positive posterior tibial pulses bilaterally, and cap refill < 2 seconds. Dialysis catheter/Temo cath left anterior chest, no active bleeding noted and no signs of infection. Lungs: Respirations even, regular, and unlabored on room air. Lungs CTA bilaterally, no rhonchi, no rales, no wheezing, and no accessory muscle usage. Abdominal: soft, nontender to palpation, no guarding, no appreciable organomegaly Ext: ROM intact. No gross muscle atrophy, no edema, no contractures Neuro: Speech clear, face symmetrical and CN II-XII grossly intact with no noted focal neuro deficits Psych: Alert and oriented to person, place, time, and situation. Appropriate and pleasant affect. A total of 35 minutes of time were spent preparing this complex discharge summary. Pt was discharged on 11/30/2023 at 4:45 PM Patient was seen independently by Nurse Practitioner. This document was prepared using [employer] dictation software. Please allow for errors in tax investigator while rare they do occur. I reviewed the documentation as provided by the DAMIÁN above, who is the original author of this note. I agree with the documented assessment and plan, with the following changes: none Patient Condition at Discharge: Stable Plan - Discharge Summary Discharge Rx Participant: No New Discharge Prescriptions: Continue Insulin Aspart (For Pump) [NovoLOG (For Pump)] 0.01 unit SQ-PUMP CONTINUOUS carvediloL [Coreg] 25 mg PO BID FLUoxetine HCL [PROzac] 10 mg PO DAILY HYDROcodone/APAP 5-325MG [[place] 5-325] 1 tab PO Q6H Atorvastatin [Lipitor] 20 mg PO DAILY Folic Acid/Vit B Complex and C [Lilian-Marsha Tablet] 0.8 mg PO DAILY Vancomycin See Rx Instructions .ROUTE .COMPLEX #9 each Aspirin 81 mg PO DAILY 30 Days #30 tab Losartan [Cozaar] 50 mg PO DAILY #60 tab hydrALAZINE HCL [Apresoline] 100 mg PO TID amLODIPine [Norvasc] 10 mg PO DAILY Ondansetron Odt [Zofran ODT] 4 mg PO Q6H PRN PRN Reason: Nausea And Vomiting Torsemide [Demadex] 40 mg PO DAILY #90 tab Darbepoetin Jhon [Aranesp] 40 mcg SQ DIRECTED Discharge Medication List Insulin Aspart (For Pump) [NovoLOG (For Pump)] 0.01 unit SQ-PUMP CONTINUOUS 02/21/23 [History] FLUoxetine HCL [PROzac] 10 mg PO DAILY 07/14/23 [History] carvediloL [Coreg] 25 mg PO BID 07/14/23 [History] Losartan [Cozaar] 50 mg PO DAILY #60 tab 07/16/23 [Rx] Atorvastatin [Lipitor] 20 mg PO DAILY 11/14/23 [History] Folic Acid/Vit B Complex and C [Lilian-Marsha Tablet] 0.8 mg PO DAILY 11/14/23 [History] HYDROcodone/APAP 5-325MG [[place] 5-325] 1 tab PO Q6H 11/14/23 [History] Ondansetron Odt [Zofran ODT] 4 mg PO Q6H PRN 11/14/23 [History] amLODIPine [Norvasc] 10 mg PO DAILY 11/14/23 [History] hydrALAZINE HCL [Apresoline] 100 mg PO TID 11/14/23 [History] Torsemide [Demadex] 40 mg PO DAILY #90 tab 11/17/23 [Rx] Vancomycin See Rx Instructions .ROUTE .COMPLEX #9 each 11/17/23 [Rx] Aspirin 81 mg PO DAILY 30 Days #30 tab 11/28/23 [Rx] Darbepoetin John [Aranesp] 40 mcg SQ DIRECTED 11/29/23 [History] Follow up Appointment(s)/Referral(s): Devon Mattson MD [Primary Care Provider] - 1-2 days Osiris Rodriguez MD [STAFF PHYSICIAN] - 1 Week Activity/Diet/Wound Care/Special Instructions: Activity: As tolerated. Take breaks as needed. Diet: Heart healthy and carb consistent diet. Avoid salts, or foods with hidden salts such as canned or boxed foods and frozen dinners. Extra salt makes your heart work harder and traps the fluid in your body for longer. Special Instructions: Take all of your medications as directed and remember to keep all of your doctor's appointments and follow-up as needed. You will resume vancomycin with dialysis sessions as previously prescribed. Further management and monitoring by infectious disease physician, Dr. Rodriguez. Thank you for allowing us to participate in your care, it was truly a pleasure having you for our patient!!! Discharge Disposition: HOME SELF-CARE
[2023-11-30] MEDS: VANCOMYCIN 1,500 MG in SODIUM CHLORIDE 0.9% 500 ML 500 ML IVPB ONE (17:32)
[2023-12-06] MEDS ORDERED: DARBEPOETIN ALFA 40 MCG/0.4 ML SYRINGE SQ SCH (15:00)
== END 2023-11-30 18:28 | disposition home or self-care (01) ==
LOC: EC 09:40 → 6NMEDSUR 15:33
PROVIDERS: ADMIT Internal Medicine; ATTEND Internal Medicine
DX: T82.838A Hemorrhage due to vascular prosthetic devices, implants and grafts, initial encounter (principal); Y73.3 Surgical instruments, materials and gastroenterology and urology devices (including sutures) associated with adverse incidents; K65.8 Other peritonitis; I13.2 Hypertensive heart and chronic kidney disease with heart failure and with stage 5 chronic kidney disease, or end stage renal disease; I50.22 Chronic systolic (congestive) heart failure; N18.6 End stage renal disease; E78.5 Hyperlipidemia, unspecified; E10.22 Type 1 diabetes mellitus with diabetic chronic kidney disease; N25.0 Renal osteodystrophy; E87.1 Hypo-osmolality and hyponatremia; E10.65 Type 1 diabetes mellitus with hyperglycemia; I27.20 Pulmonary hypertension, unspecified; D63.1 Anemia in chronic kidney disease; Z87.891 Personal history of nicotine dependence; Z96.41 Presence of insulin pump (external) (internal); Z99.2 Dependence on renal dialysis; Z79.82 Long term (current) use of aspirin; Z79.899 Other long term (current) drug therapy
CPT/HCPCS: 36430; 96372; 96365; 99284; 36415; 86900; 86901; 80053 ×2; 83735; 85025; 85027; 85610; 85730; 86850; 86920; 80202; G0378 ×2; P9016; J2001; J0881; J2597

== ENCOUNTER 2023-12-14 14:30 | Inpatient (IN) | payer SELFPAY ==
[2023-12-14] MEDS ORDERED: NALOXONE 0.4 MG/ML 1 ML VIAL IV PRN (15:52)
--- NOTE | 2023-12-14 15:52 | ED ---
General Adult HPI - General Chief complaint: Recheck/Abnormal Lab/Rx Stated complaint: Pulled out dialysis catheter Time Seen by Provider: 12/14/23 14:40 Source: patient, family Mode of arrival: ambulatory Limitations: no limitations - History of Present Illness Initial comments: 58-year-old male with past medical history of end-stage renal disease on he modialysis who presents to the emergency department reporting that his catheter fell out. He went to excelsior picker his dog off the ground. He states that later on when he got up out of bed something dropped on the floor and he noticed it was his catheter. Catheter was just placed on the . He did have some bleeding after it was put in and he did require to have a blood transfusion. States has been functioning just fine since then. He gets dialysis Friday, Friday and Fridays. He is supposed to go tomorrow however has not received a chair time. He has not missed any dialysis sessions. There is no active bleeding from the site. No other alleviating, precipitating or modifying factors - Related Data Home Medications Medication Instructions Recorded Confirmed Insulin Aspart (For Pump) [NovoLOG 0.01 unit SQ-PUMP CONTINUOUS 02/21/23 12/14/23 (For Pump)] FLUoxetine HCL [PROzac] 10 mg PO DAILY 07/14/23 12/14/23 carvediloL [Coreg] 25 mg PO BID 07/14/23 12/14/23 Atorvastatin [Lipitor] 20 mg PO DAILY 11/14/23 12/14/23 Folic Acid/Vit B Complex and C 0.8 mg PO DAILY 11/14/23 12/14/23 [Lilian-Marsha Tablet] HYDROcodone/APAP 5-325MG [[place] 1 tab PO Q6H 11/14/23 12/14/23 5-325] Ondansetron Odt [Zofran ODT] 4 mg PO Q6H PRN 11/14/23 12/14/23 amLODIPine [Norvasc] 10 mg PO DAILY 11/14/23 12/14/23 hydrALAZINE HCL [Apresoline] 100 mg PO TID 11/14/23 12/14/23 Previous Rx's Medication Instructions Recorded Losartan [Cozaar] 50 mg PO DAILY #60 tab 07/16/23 Torsemide [Demadex] 40 mg PO DAILY #90 tab 11/17/23 Aspirin 81 mg PO DAILY 30 Days #30 tab 11/28/23 Allergies Allergy/AdvReac Type Severity Reaction Status Date / Time Iodinated Contrast Media Allergy Anaphylaxis Verified 11/29/23 15:42 Review of Systems ROS Statement: Those systems with pertinent positive or pertinent negative responses have been documented in the HPI. ROS Other: All systems not noted in ROS Statement are negative. Past Medical History Past Medical History: Diabetes Mellitus, Dialysis, Hyperlipidemia, Hypertension, Renal Disease Additional Past Medical History / Comment(s): IDDM type I on insulin pump, DKA, chronic kidney disease, bilateral lower extremity edema. peritoneal dialysis History of Any Multi-Drug Resistant Organisms: None Reported Past Surgical History: No Surgical Hx Reported Additional Past Surgical History / Comment(s): R knee arthroscopy, circumcism, HD cath in chest Past Anesthesia/Blood Transfusion Reactions: No Reported Reaction Past Psychological History: No Psychological Hx Reported Smoking Status: Former smoker Past Alcohol Use History: None Reported Past Drug Use History: Marijuana - Past Family History Mother History Unknown: Yes Family Medical History: COPD Father Family Medical History: No Reported History Additional Family Medical History / Comment(s): Mother is healthy. General Exam Limitations: no limitations General appearance: alert, in no apparent distress Head exam: Present: atraumatic, normocephalic, normal inspection Eye exam: Present: normal appearance, PERRL, EOMI. Absent: scleral icterus, conjunctival injection, periorbital swelling ENT exam: Present: normal exam, mucous membranes moist Neck exam: Present: normal inspection. Absent: tenderness, meningismus, lymphadenopathy Respiratory exam: Present: normal lung sounds bilaterally, chest wall tenderness (There is an area of open skin to the left chest wall where the catheter has come out. There is no active bleeding. No large subcutaneous hematoma). Absent: respiratory distress, wheezes, rales, rhonchi, stridor Cardiovascular Exam: Present: regular rate, normal rhythm, normal heart sounds. Absent: systolic murmur, diastolic murmur, rubs, gallop, clicks GI/Abdominal exam: Present: soft, normal bowel sounds. Absent: distended, tenderness, guarding, rebound, rigid Extremities exam: Present: normal inspection, full ROM, normal capillary refill. Absent: tenderness, pedal edema, joint swelling, calf tenderness Back exam: Present: normal inspection Neurological exam: Present: alert, oriented X3, CN II-XII intact Psychiatric exam: Present: normal affect, normal mood Skin exam: Present: warm, dry, intact, normal color. Absent: rash Course Vital Signs 12/14/23 12/14/23 12/14/23 14:36 16:46 17:24 Temperature 97.4 F L Pulse Rate 77 72 71 Respiratory 20 16 16 Rate Blood Pressure 183/91 186/110 174/88 O2 Sat by Pulse 96 92 L 92 L Oximetry - Reevaluation(s) Reevaluation #1: 12/14/23 15:[address] Su. Would like patient admitted and will do his catheter in the morning Medical Decision Making - Medical Decision Making Was pt. sent in by a medical professional or institution (, RICK, MAGNETIC RESONANCE IMAGING DIRECTOR, urgent care, hospital, or senior care...) When possible be specific @ -No Did you speak to anyone other than the patient for history (EMS, parent, family, police, friend...)? What history was obtained from this source @ -No Did you review nursing and triage notes (agree or disagree)? Why? @ -I reviewed and agree with nursing and triage notes Were old charts reviewed (outside hosp., previous admission, EMS record, old EKG, old radiological studies, urgent care reports/EKG's, senior care records)? Report findings @ -No old charts were reviewed Differential Diagnosis (chest pain, altered mental status, abdominal pain women, abdominal pain men, vaginal bleeding, weakness, fever, dyspnea, syncope, headache, dizziness, GI bleed, back pain, seizure, CVA, palpatations, mental health, musculoskeletal)? @ -Catheter dysfunction, catheter dislodgment, blood loss anemia EKG interpreted by me (3pts min.). @ -Not done X-rays interpreted by me (1pt min.). @ -None done CT interpreted by me (1pt min.). @ -None done U/S interpreted by me (1pt. min.). @ -None done What testing was considered but not performed or refused? (CT, X-rays, U/S, labs)? Why? @ -None What meds were considered but not given or refused? Why? @ -None Did you discuss the management of the patient with other professionals (professionals i.e. , PA, MAGNETIC RESONANCE IMAGING DIRECTOR, lab, RT, psych nurse, social welfare administrator, roasterman, teacher, fire prevention officer, case resolution specialist)? Give summary @ -Spoke with Dr. Su who states that he cannot put the catheter back in until tomorrow Was smoking cessation discussed for >3mins.? @ -No Was critical care preformed (if so, how long)? @ -No Were there social determinants of health that impacted care today? How? (Homelessness, low income, unemployed, alcoholism, drug addiction, transportation, low edu. Level, literacy, decrease access to med. care, half-way, rehab)? @ -No Was there de-escalation of care discussed even if they declined (Discuss DNR or withdrawal of care, Hospice)? DNR status @ -No What co-morbidities impacted this encounter? (DM, HTN, Smoking, COPD, CAD, Cancer, CVA, ARF, Chemo, Hep., AIDS, mental health diagnosis, sleep apnea, morbid obesity)? @ -[End-stage renal disease on hemodialysis Was patient admitted / discharged? Hospital course, mention meds given and route, prescriptions, significant lab abnormalities, going to OR and other pertinent info. @ -Upon arrival patient seen and evaluated in room 9. Thorough history and physical exam was performed. I did call Dr. Su. He cannot put the catheter back in until the morning. Patient will be admitted to Dr. Gaviria with Dr. Su to consult Undiagnosed new problem with uncertain prognosis? @ -No Drug Therapy requiring intensive monitoring for toxicity (Heparin, Nitro, Insulin, Cardizem)? @ -No Were any procedures done? @ -No Diagnosis/symptom? @ -Acute catheter dislodgment, history of end-stage renal disease on hemodialysis Acute, or Chronic, or Acute on Chronic? @ -Acute Uncomplicated (without systemic symptoms) or Complicated (systemic symptoms)? @ -Complicated Side effects of treatment? @ -No Exacerbation, Progression, or Severe Exacerbation? @ -No Poses a threat to life or bodily function? How? (Chest pain, [place], [place], pneumonia, PE, COPD, DKA, ARF, appy, cholecystitis, CVA, Diverticulitis, Homicidal, Suicidal, threat to staff... and all critical care pts) @ -Yes as patient does need a catheter for dialysis - Lab Data Result diagrams: 12/16/23 08:48 12/16/23 08:48 Disposition Clinical Impression: Peritoneal dialysis catheter dysfunction Disposition: ADMITTED IP TO THIS [facility] Condition: Stable Is patient prescribed a controlled substance at d/c from ED?: No Time of Disposition: 15:52 Decision to Admit Reason: Admit from EC Decision Date: 12/14/23 Decision Time: 15:52
[2023-12-14] MEDS: hydrALAZINE HCL 20 MG/ML 1 ML VIAL IVP STA (17:25)
[2023-12-14] MEDS: amLODIPine 10 MG TAB PO SCH (17:28)
[2023-12-14] MEDS: hydrALAZINE HCL 50 MG TAB PO SCH (17:28)
[2023-12-14] MEDS: carvediloL 12.5 MG TAB PO SCH (17:28)
[2023-12-14] MEDS ORDERED: DEXTROSE 50% SYRINGE 50 ML IVP PRN ×2 (17:58)
[2023-12-14 18:10] LABS: Anisocytosis Slight; HCT 28.7 % (39.0-53.0); HGB 9.1 gm/dL (13.0-17.5); Hypochromasia Slight; MCHC 31.8 g/dL (31.0-37.0); MCV 100.7 fL (80.0-100.0); Macrocytosis Slight; Mean Platelet Volume 8.2; Platelet Count 223 k/uL (150-450); RBC 2.85 m/uL (4.30-5.90); RDW 16.2 % (11.5-15.5); WBC 7.3 k/uL (3.8-10.6)
[2023-12-14 18:15] LABS: INR 1.1 (<1.2); Prothrombin Time 11.6 sec (10.0-12.5)
[2023-12-14 18:22] LABS: ALT 19 U/L (4-49); AST 22 U/L (17-59); African American GFR (CKD) 13 (>60 ml/min/1.73 sqM); Albumin 2.9 g/dL (3.5-5.0); Alkaline Phosphatase 109 U/L (38-126); Anion Gap 8 mmol/L; Blood Urea Nitrogen 63 mg/dL (9-20); Calcium 8.2 mg/dL (8.4-10.2); Carbon Dioxide 26 mmol/L (22-30); Chloride 98 mmol/L (98-107); Glucose 139 mg/dL (74-99); Magnesium 2.2 mg/dL (1.6-2.3); Non-African American GFR(CKD) 12 (>60 ml/min/1.73 sqM); Phosphorus 6.7 mg/dL (2.5-4.5); Sodium 132 mmol/L (137-145); Total Bilirubin 0.5 mg/dL (0.2-1.3); Total Protein 5.6 g/dL (6.3-8.2)
[2023-12-14 18:29] LABS: Potassium 6.2 mmol/L (3.5-5.1)
[2023-12-14 18:54] LABS: Eosinophils # (M) 1.31 k/uL (0-0.7); Monocytes # (M) 0.51 k/uL (0-1.0); Neutrophils # (M) 4.67 k/uL (1.3-7.7); Neutrophils % (M) 64 %; Nucleated Red Blood Cells 0 /100 WBC (0-0); Total Cells Counted 100
[2023-12-14] MEDS ORDERED: FUROSEMIDE 10 MG/ML 10 ML VIAL IV SCH (18:55)
--- NOTE | 2023-12-14 18:59 | P.HPIM ---
History of Present Illness H&P Date: 12/14/23 History of Presenting Illness: Patient is a pleasant 58-year-old male with a past medical history of ESRD on peritoneal dialysis, systolic heart failure with EF of 40%, moderate pulmonary hypertension, hypertension, hyperlipidemia, and insulin-dependent diabetes mellitus on insulin pump. He presented to the emergency department today secondary to reports of accidentally pulling out his dialysis catheter. Patient reports he bent over to roll picker his 8 lb dog and a few moments later realized that his catheter fell to the ground. He denies experiencing any pain or any bleeding from dialysis access site. In addition patient reports new onset lower extremity swelling over the past few days. On arrival to the emergency department patient underwent evaluation. Vital signs upon arrival show blood pressure 183/91, heart rate 77, respiratory rate 20, temp 97.4 F, and SpO2 of 96% on room air. Labs completed and reviewed. CBC showing macrocytic anemia with hemoglobin of 9.1 and MCV of 100.7. BMP showing hyponatremia with sodium of 132, hyperkalemia with potassium of 6.2, and renal function consistent with ESRD with BUN of 63, creatinine one 5.10, and GFR of 12. Blood glucose 139. Magnesium 2.2. Liver profile unremarkable with the exception of low albumin of 2.9. Patient was admitted under our services with consultation to vascular surgery team for urgent need for placement of dialysis catheter. Review of systems: Pertinent positives and negatives as discussed in HPI, a complete review of systems was performed and all other systems are negative. Physical exam: Vital signs reviewed and stable. General: Nontoxic, no distress and appears stated age. Derm: Skin warm and dry, normal coloration for ethnicity. Previous Dialysis catheter site showing a small scab but no active bleeding, no hematoma, no bruising and no signs of erythema or drainage. Head: Atraumatic, normocephalic and symmetric. Eyes: EOMs intact, no lid lag, and anicteric sclera Mouth: no lip lesions, mucus membranes moist Cardiovascular: regular rate and rhythm with normal S1S2, systolic murmur, positive posterior tibial pulses bilaterally, and cap refill < 2 seconds. Lungs: Respirations even, regular, and unlabored on room air. Lungs slightly diminished with no rhonchi, no rales, no wheezing, and no accessory muscle usage. Abdominal: soft, nontender to palpation, no guarding, no appreciable organomegaly Ext: ROM intact. No gross muscle atrophy, 3+ pitting bilateral lower extremity edema, no contractures Neuro: Speech clear, face symmetrical and CN II-XII grossly intact with no noted focal neuro deficits Psych: Alert and oriented to person, place, time, and situation. Appropriate and pleasant affect. Assessment and Plan of Care: Dialysis permacath catheter pulled out ESRD on hemodialysis Acute on chronic systolic heart failure exacerbation previously known EF of 40% Hyperkalemia Hypervolemic hyponatremia secondary to fluid volume overload. Anemia of chronic disease secondary to ESRD -Vascular surgery consulted for placement of dialysis catheter. -Nephrology consulted for patient's need for hemodialysis and hyperkalemia -Cardiology consulted for acute on chronic systolic heart failure exacerbation -Order placed for stat EKG and Continuous Telemetry monitoring. -Order placed for hyperkalemia cocktail consisting of Lokelma 10 mg, sodium bicarb 1 amp or 50 mL, calcium gluconate 2 g IVPB, and Lasix. Repeat BMP at midnight. -Order placed for STAT ProBNP -Order placed for chest x-ray -Daily weights and Close monitoring of I's and O's -Cardiac/Renal diet with 1500 cc fluid restriction -Lasix 80 mg IVP twice daily -Continuation of daily medications including: Amlodipine 10 mg daily, atorvastatin 20 mg daily, carvedilol 25 mg twice daily with meals, and hydralazine 100 mg 3 times daily. -Continued close monitoring of electrolytes while diuresing. Insulin-Dependent Diabetes mellitus -Patient to continue use of personal insulin pump. Hypertension. -Continue medication regimen with amlodipine 10 mg daily,carvedilol 25 mg twice daily, and hydralazine 100 mg 3 times daily, -Losartan held secondary to hyperkalemia. Hyperlipidemia. -Continue medication regimen with atorvastatin 20 mg daily. Recent infection with peritonitis secondary to peritoneal dialysis catheter infection. -Reports recently completing outpatient course of IV antibiotics with vancomycin with final dose on 12/12/2023. Data and imaging reviewed: As stated above in HPI The patient is admitted with an anticipated greater than 2 midnight stay for evaluation of acute on chronic systolic heart failure exacerbation, ESRD with dialysis access problems and need for dialysis, and hyperkalemia CODE STATUS: Full code DVT prophylaxis: Heparin Anticipated discharge date: Clinical course to determine Anticipated discharge place: Home Patient was seen independently by Nurse Practitioner. This document was prepared using [employer] dictation software. Please allow for errors in cst while rare they do occur. Anton Salgado NP rendered care for this patient independently, reviewed the findings and plan as documented in the note above. I did not physically speak with or examine the patient on this date. Past Medical History Past Medical History: Diabetes Mellitus, Dialysis, Hyperlipidemia, Hypertension, Renal Disease Additional Past Medical History / Comment(s): IDDM type I on insulin pump, DKA, chronic kidney disease, bilateral lower extremity edema. peritoneal dialysis History of Any Multi-Drug Resistant Organisms: None Reported Past Surgical History: No Surgical Hx Reported Additional Past Surgical History / Comment(s): R knee arthroscopy, circumcism, HD cath in chest Past Anesthesia/Blood Transfusion Reactions: No Reported Reaction Past Psychological History: No Psychological Hx Reported Smoking Status: Former smoker Past Alcohol Use History: None Reported Past Drug Use History: Marijuana - Past Family History Mother History Unknown: Yes Family Medical History: COPD Father Family Medical History: No Reported History Additional Family Medical History / Comment(s): Mother is healthy. Medications and Allergies Home Medications Medication Instructions Recorded Confirmed Type Insulin Aspart (For Pump) [NovoLOG 0.01 unit SQ-PUMP CONTINUOUS 02/21/23 12/14/23 History (For Pump)] FLUoxetine HCL [PROzac] 10 mg PO DAILY 07/14/23 12/14/23 History carvediloL [Coreg] 25 mg PO BID 07/14/23 12/14/23 History Losartan [Cozaar] 50 mg PO DAILY #60 tab 07/16/23 12/14/23 Rx Atorvastatin [Lipitor] 20 mg PO DAILY 11/14/23 12/14/23 History Folic Acid/Vit B Complex and C 0.8 mg PO DAILY 11/14/23 12/14/23 History [Lilian-Marsha Tablet] HYDROcodone/APAP 5-325MG [[place] 1 tab PO Q6H 11/14/23 12/14/23 History 5-325] Ondansetron Odt [Zofran ODT] 4 mg PO Q6H PRN 11/14/23 12/14/23 History amLODIPine [Norvasc] 10 mg PO DAILY 11/14/23 12/14/23 History hydrALAZINE HCL [Apresoline] 100 mg PO TID 11/14/23 12/14/23 History Torsemide [Demadex] 40 mg PO DAILY #90 tab 11/17/23 12/14/23 Rx Aspirin 81 mg PO DAILY 30 Days #30 tab 11/28/23 12/14/23 Rx Allergies Allergy/AdvReac Type Severity Reaction Status Date / Time Iodinated Contrast Media Allergy Anaphylaxis Verified 11/29/23 15:42 Physical Exam Vitals: Vital Signs Temp Pulse Resp BP Pulse Ox 12/14/23 16:46 72 16 186/110 92 L 12/14/23 14:36 97.4 F L 77 20 183/91 96 Intake and Output 12/14/23 12/14/23 12/14/23 06:59 14:59 22:59 Other: Weight 79.379 kg Results CBC & Chem 7: 12/15/23 04:49 12/15/23 04:49
[2023-12-14] MEDS: SODIUM ZIRCONIUM CYCLOSILICATE 10 GM PACKET PO ONE (19:00)
[2023-12-14] MEDS: CALCIUM GLUCONATE IN NACL 2 GM in SALINE 1 100ML.BAG IVPB ONE (19:01)
[2023-12-14] MEDS: SODIUM BICARB 8.4% 50 ML SYR (1 MEQ/ML) IV STA (19:01)
[2023-12-14 20:10] LABS: Glucose,Whole Blood 83 mg/dL (70-110)
[2023-12-14] MEDS: Insulin Aspart (For Pump) 100 UNIT/ML VIAL SQ-PUMP SCH (20:26)
[2023-12-14] MEDS ORDERED: FUROSEMIDE 10 MG/ML 4 ML VIAL IV SCH (21:00)
--- NOTE | 2023-12-14 21:05 | XR ---
EXAMINATION TYPE: XR chest 1V portable DATE OF EXAM: 12/14/2023 COMPARISON: 11/26/2023 INDICATION: CHF TECHNIQUE: Single frontal view of the chest is obtained. FINDINGS: The heart size is enlarged. The pulmonary vasculature is prominent. Minimal increased lung markings are present. This is nonspecific. Some early volume overload pulmonar y edema could be considered. Previous catheters absent. No pneumothorax present IMPRESSION: 1. Cardiomegaly, prominent pulmonary vascular markings and some minimal increased lung markings sugge stive for congestive heart failure early volume overload.
[2023-12-14] MEDS: FUROSEMIDE 10 MG/ML 10 ML VIAL IV SCH (21:41)
[2023-12-14] MEDS: FUROSEMIDE 10 MG/ML 4 ML VIAL IV SCH (22:26)
[2023-12-14] MEDS: HEPARIN SODIUM,PORCINE 5,000 UNIT/ML 1 ML VIAL SQ SCH (23:26)
[2023-12-15 01:13] LABS: African American GFR (CKD) 12 (>60 ml/min/1.73 sqM); Anion Gap 9 mmol/L; Blood Urea Nitrogen 67 mg/dL (9-20); Calcium 8.1 mg/dL (8.4-10.2); Carbon Dioxide 22 mmol/L (22-30); Chloride 100 mmol/L (98-107); Glucose 220 mg/dL (74-99); Non-African American GFR(CKD) 10 (>60 ml/min/1.73 sqM); Sodium 131 mmol/L (137-145)
[2023-12-15 01:18] LABS: Potassium 6.3 mmol/L (3.5-5.1)
[2023-12-15 02:17] LABS: Glucose,Whole Blood 336 mg/dL (70-110)
[2023-12-15] MEDS: SODIUM BICARB 8.4% 50 ML SYR (1 MEQ/ML) IV STA ×2 (02:28→02:53)
[2023-12-15] MEDS: CALCIUM GLUCONATE IN NACL 1 GM in SALINE 1 100ML.BAG IVPB ONE (02:28)
[2023-12-15] MEDS: DEXTROSE 50% SYRINGE 50 ML IVP STA (02:28)
[2023-12-15] MEDS: INSULIN REGULAR 100 UNIT/ML VIAL (IV) IV ONE (02:29)
[2023-12-15] MEDS: SODIUM ZIRCONIUM CYCLOSILICATE 10 GM PACKET PO ONE (02:29)
[2023-12-15 03:12] LABS: Glucose,Whole Blood 375 mg/dL (70-110)
[2023-12-15 06:19] LABS: Glucose,Whole Blood 305 mg/dL (70-110)
[2023-12-15] MEDS: ONDANSETRON 4 MG/2 ML VIAL IVP STA (06:39)
[2023-12-15] MEDS: FLUoxetine HCL 10 MG CAP PO SCH (07:54)
[2023-12-15] MEDS: ATORVASTATIN 20 MG TAB PO SCH (07:54)
[2023-12-15] MEDS: LIDOCAINE 1% INJ 10MG/ML (20 ML MDV) SQ ONE (08:25)
[2023-12-15] MEDS: methylPREDNISolone SOD SUCCI 125 MG/2 ML VIAL IVP ONE (08:38)
[2023-12-15] MEDS: MIDAZOLAM 2 MG/2 ML VIAL IVP ONE (08:38)
[2023-12-15] MEDS: fentaNYL (PF) 50 MCG/ML 2 ML AMP IVP ONE (08:38)
[2023-12-15] MEDS: diphenhydrAMINE 50 MG/ML 1 ML VIAL IVP ONE (08:39)
[2023-12-15] MEDS ORDERED: TORSEMIDE 20 MG TAB PO SCH (09:00)
[2023-12-15] MEDS ORDERED: LOSARTAN 50 MG TAB PO SCH (09:00)
--- NOTE | 2023-12-15 09:25 | CONS ---
DATE OF CONSULTATION: 12/15/2023 HISTORY OF PRESENT ILLNESS: This is a 58-year-old gentleman, who has a history of chronic renal failure. The patient had a dialysis catheter placed in the left IJ. The patient accidentally pulled the catheter out. The patient is scheduled to have placement of a new dialysis catheter. MEDICAL HISTORY: History of diabetes and chronic renal failure. PERSONAL HISTORY: The patient is allergic to dye. SURGICAL HISTORY: The patient had a peritoneal dialysis catheter placed in the past, which was infected, has been removed. PHYSICAL EXAMINATION: NECK: Supple. No bruit appreciated. CHEST: Clear. Good air entry in both lung. First and second sounds present. ABDOMEN: Soft and nontender. Femorals are 1+ bilaterally. PLAN: Placement of the dialysis catheter. Risks and complications discussed. MMODL / IJN: [id number] / MTDD
[2023-12-15 09:27] LABS: Basophils # (A) 0.04 X 10*3/uL (0.00-0.10); Basophils % (A) 0.6 %; Eosinophils # (A) 1.34 X 10*3/uL (0.04-0.35); Eosinophils % (A) 20.8 %; HCT 24.2 % (39.6-50.0); HGB 7.7 g/dL (13.0-17.0); Lymphocytes # (A) 0.49 X 10*3/uL (0.90-5.00); Lymphocytes % (A) 7.6 %; MCH 31.4 pg (27.0-32.0); MCHC 31.8 g/dL (32.0-37.0); MCV 98.8 FL (80.0-97.0); Mean Platelet Volume 10.1 FL (9.5-12.2); Monocytes # (A) 0.59 X 10*3/uL (0.20-1.00); Monocytes % (A) 9.2 %; NRBC Per 100 WBC 0 X 10*3/uL (0.00-0.01); Neutrophils # (A) 3.96 X 10*3/uL (1.80-7.70); Neutrophils % (A) 61.5 %; Platelet Count 214 X 10*3/uL (140-440); RBC 2.45 X 10*6/uL (4.40-5.60); RDW 15.9 % (11.5-14.5); WBC 6.44 X 10*3/uL (4.50-10.00)
[2023-12-15 09:37] LABS: ALT 19 U/L (10-49); AST 15 U/L (14-35); Albumin 3.1 g/dL (3.8-4.9); Albumin/Globulin Ratio 1.55 Ratio (1.60-3.17); Alkaline Phosphatase 109 U/L (41-126); BUN/Creat Ratio 10.85 Ratio (12.00-20.00); Blood Urea Nitrogen 66.2 mg/dL (9.0-27.0); Calcium 8.4 mg/dL (8.7-10.3); Carbon Dioxide 25.1 mmol/L (21.6-31.8); Chloride 98 mmol/L (96-109); Glucose 318 mg/dL (70-110); Potassium 5.5 mmol/L (3.5-5.5); Sodium 136 mmol/L (135-145); Total Bilirubin 0.3 mg/dL (0.3-1.2); Total Protein 5.1 g/dL (6.2-8.2)
--- NOTE | 2023-12-15 09:42 | IR ---
EXAMINATION TYPE: IR cvc insert central tunneled Intraoperative/procedural fluoroscopic services were provided. CLINICAL INDICATION:Male, 58 years old with history of hemodialysis catheter, 2.5min fluoro, 3.8035Gy cm2; , [facility] Total fluoroscopy time is 2.5 min. DAP: 380.35 Gycm2 uGym2 Please see the operative/procedural note for further details.
[2023-12-15] MEDS: MORPHINE SULFATE 4 MG/ML SYRINGE IV PRN (10:56)
--- NOTE | 2023-12-15 11:02 | XR ---
EXAMINATION TYPE: XR chest 1V confirm line plcmt DATE OF EXAM: 12/15/2023 10:55 AM CLINICAL INDICATION:Male, 58 years old with history of hemodialysis catheter placement.; [facility] COMPARISON: Chest radiographs from 12/14/2023. TECHNIQUE: XR chest 1V confirm line plcmt Frontal view of the chest. FINDINGS: Lungs/Pleura: There is no evidence of pleural effusion, focal consolidation, or pneumothorax. Pulmonary vascularity: Pulmonary vascular congestion. Heart/mediastinum: Cardiomediastinal silhouette is enlarged and stable. Musculoskeletal: No acute osseous pathology. Other findings: None Lines/Tubes:Left internal jugular central venous catheter with distal tip at the cavoatrial junction. IMPRESSION: Cardiomegaly and mild pulmonary vascular congestion. Correlate with BNP for congestive heart failure.
--- NOTE | 2023-12-15 11:25 | P.NPCON ---
History of Present Illness - Reason for Consult end stage renal disease - History of Present Illness Reason for consultation: End-stage renal disease History of present illness: Patient is a 58-year-old male seen in renal consultation for end-stage renal disease. He is maintained on hemodialysis on Friday schedule via permacath. Patient came to the hospital because his permacath fell out. Patient states he did lift his dog that weighs about 11 pounds and then afterwards laid down. When he got up he noticed his permacath suddenly fell out. Last hemodialysis was on Friday. He denies chest pain or shortness of breath. Does admit to swelling in his lower extremities. Patient has longstanding history of diabetes and is maintained on insulin pump. Patient also has systolic CHF with ejection fraction of 40% and moderate pulmonary hypertension. Denies coronary artery disease. He did vomit once but none today. Oral intake fair. No chest pain or shortness of breath. He does make urine. Potassium level was elevated at 6.2 which was medically treated. Improved to 5.2. He is scheduled for dialysis today. New permacath was placed this morning. Vital signs are stable. General: No acute distress. HEENT: Head exam is unremarkable. LUNGS: No audible rhonchi or wheezes. HEART: Rate and Rhythm are regular. ABDOMEN: Nontender. EXTREMITITES: 2+ edema. Past Medical History Past Medical History: Diabetes Mellitus, Dialysis, Hyperlipidemia, Hypertension, Renal Disease Additional Past Medical History / Comment(s): IDDM type I on insulin pump, DKA, chronic kidney disease, bilateral lower extremity edema. peritoneal dialysis History of Any Multi-Drug Resistant Organisms: None Reported Past Surgical History: No Surgical Hx Reported Additional Past Surgical History / Comment(s): R knee arthroscopy, circumcism, HD cath in chest Past Anesthesia/Blood Transfusion Reactions: No Reported Reaction Past Psychological History: No Psychological Hx Reported Additional Psychological History / Comment(s): Pt resides with his spouse. He is independent. Smoking Status: Former smoker Past Alcohol Use History: None Reported Additional Past Alcohol Use History / Comment(s): Pt started smoking in 1985 andd quit 07/25/20 Past Drug Use History: Marijuana Additional Drug Use History / Comment(s): Rare MJ use - Past Family History Mother History Unknown: Yes Family Medical History: COPD Father Family Medical History: No Reported History Additional Family Medical History / Comment(s): Mother is healthy. Medications and Allergies Home Medications Medication Instructions Recorded Confirmed Type Insulin Aspart (For Pump) [NovoLOG 0.01 unit SQ-PUMP CONTINUOUS 02/21/23 12/14/23 History (For Pump)] FLUoxetine HCL [PROzac] 10 mg PO DAILY 07/14/23 12/14/23 History carvediloL [Coreg] 25 mg PO BID 07/14/23 12/14/23 History Losartan [Cozaar] 50 mg PO DAILY #60 tab 07/16/23 12/14/23 Rx Atorvastatin [Lipitor] 20 mg PO DAILY 11/14/23 12/14/23 History Folic Acid/Vit B Complex and C 0.8 mg PO DAILY 11/14/23 12/14/23 History [Lilian-Marsha Tablet] HYDROcodone/APAP 5-325MG [[place] 1 tab PO Q6H 11/14/23 12/14/23 History 5-325] Ondansetron Odt [Zofran ODT] 4 mg PO Q6H PRN 11/14/23 12/14/23 History amLODIPine [Norvasc] 10 mg PO DAILY 11/14/23 12/14/23 History hydrALAZINE HCL [Apresoline] 100 mg PO TID 11/14/23 12/14/23 History Torsemide [Demadex] 40 mg PO DAILY #90 tab 11/17/23 12/14/23 Rx Aspirin 81 mg PO DAILY 30 Days #30 tab 11/28/23 12/14/23 Rx Allergies Allergy/AdvReac Type Severity Reaction Status Date / Time Iodinated Contrast Media Allergy Anaphylaxis Verified 11/29/23 15:42 Physical Exam Vitals: Vital Signs Temp Pulse Pulse Resp BP BP Pulse Ox 12/15/23 07:07 98.6 F 75 18 145/71 95 12/15/23 02:00 98.1 F 76 18 147/69 92 L 12/14/23 18:14 97.6 F 71 19 167/82 93 L 12/14/23 17:24 71 16 174/88 92 L 12/14/23 16:46 72 16 186/110 92 L 12/14/23 14:36 97.4 F L 77 20 183/91 96 Intake and Output 12/14/23 12/15/23 12/15/23 22:59 06:59 14:59 Other: Voiding Method Toilet Urinal Weight 79.379 kg 91.7 kg Results - Lab Results Most recent lab results Calcium 8.4 mg/dL (8.7-10.3) L 12/15/23 04:49 Phosphorus 6.7 mg/dL (2.5-4.5) H 12/14/23 18:00 Magnesium 2.2 mg/dL (1.6-2.3) 12/14/23 18:00 12/15/23 04:49 12/15/23 04:49 Assessment and Plan Plan: Assessment: 1. End-stage renal disease maintained on hemodialysis on Friday schedule. Permacath fell out and had a new catheter placed this morning. 2. Volume overload. 3. Acute on chronic systolic CHF with ejection fraction of 40% with moderate pulmonary hypertension. 4. Diabetes mellitus. 5. Volume overload. 6. Hyperkalemia secondary to chronic kidney disease and losartan. Improved with medical management. 7. Anemia of chronic kidney disease. Plan: Hemodialysis today with goal 4 L ultrafiltration. Low-salt diet and 1500 cc fluid restriction. Hold off on losartan due to hyperkalemia. Check iron studies. Thank you for the consultation. I will continue to follow the patient with you during his hospital stay.
[2023-12-15 11:42] LABS: Glucose,Whole Blood 214 mg/dL (70-110)
--- NOTE | 2023-12-15 12:29 | P.CRDCN ---
History of Present Illness Consult date: 12/15/23 Consult reason: congestive heart failure Chief complaint: shortness of breath History of present illness: History of present illness: Patient is a pleasant 58-year-old male with significant past medical history of end-stage renal disease on hemodialysis, systolic heart failure with EF 40%, moderate pulmonary hypertension, hypertension, hyperlipidemia, diabetes type 2 presenting to the emergency department after he accidentally dislodged his dialysis catheter yesterday. He does follow in the office with Dr. Means. His hemodialysis catheter was replaced today. He was recently evaluated by cardiology during prior admission 2 weeks ago. Echocardiogram from 11/26/2023 with a EF 40%, RVSP 53. He then underwent left heart catheterization 11/28/2023 which showed relatively normal coronary arteries. Labs today show hemoglobin 9.1, potassium 5.2, sodium 131, creatinine 5.58. His last hemodialysis was on Friday. He has been feeling okay. He states he believes he was getting stronger at home. Denies any chest pain or pressure. He does have occasional shortness of breath. REVIEW OF SYSTEMS: No fever or chills. No cough or expectoration. No diaphoresis. Patient denies headache, dizziness, blurred vision, double vision. Patient denies any stomach discomfort. No nausea, vomiting. No hematochezia. No hematemesis. Denies any black stools or blood in his stools. Denies dysuria or hematuria. No muscle weakness or numbness. No chest pain or pressure. Reports edema. PHYSICAL EXAMINATION: This is a 58-year-old male in no apparent distress at the time of my examination. HEENT: Head is atraumatic, normocephalic. Pupils are equal, round. Sclerae anicteric. Conjunctivae are clear. Mucous membranes of the mouth are moist. Neck is supple. There is no jugular venous distention. No carotid bruit is heard. CHEST EXAMINATION: Lungs are clear to auscultation. No chest wall tenderness is noted on palpation or with deep breathing. Dialysis catheter dressing clean dry and intact. HEART EXAMINATION: Heart regular rate and rhythm.dipine to los S1, S2 heard. No murmurs, gallops or rub. ABDOMEN: Soft, nontender. Bowel sounds are heard. EXTREMITIES: 2+ peripheral pulses with + peripheral edema NEUROLOGIC EXAMINATION: Patient is awake, alert and oriented x3. IMPRESSION AND PLAN: End-stage renal disease on hemodialysis Chronic systolic heart failure with EF 40% Pulmonary hypertension, RVSP 53 Hypertension Hyperlipidemia Diabetes type 2 Shortness of breath Hyperkalemia PLAN: Continue with current regimen. May consider changing amlodipine to losartan given lower extremity edema, will monitor for now. We will follow. I am dictating on behalf of Dr. Jaspreet Pack's history/physical and assessment/plan. Past Medical History Past Medical History: Diabetes Mellitus, Dialysis, Hyperlipidemia, Hypertension, Renal Disease Additional Past Medical History / Comment(s): IDDM type I on insulin pump, DKA, chronic kidney disease, bilateral lower extremity edema. peritoneal dialysis History of Any Multi-Drug Resistant Organisms: None Reported Past Surgical History: No Surgical Hx Reported Additional Past Surgical History / Comment(s): R knee arthroscopy, circumcism, HD cath in chest Past Anesthesia/Blood Transfusion Reactions: No Reported Reaction Past Psychological History: No Psychological Hx Reported Additional Psychological History / Comment(s): Pt resides with his spouse. He is independent. Smoking Status: Former smoker Past Alcohol Use History: None Reported Additional Past Alcohol Use History / Comment(s): Pt started smoking in 1985 andd quit 07/25/20 Past Drug Use History: Marijuana Additional Drug Use History / Comment(s): Rare MJ use - Past Family History Mother History Unknown: Yes Family Medical History: COPD Father Family Medical History: No Reported History Additional Family Medical History / Comment(s): Mother is healthy. Medications and Allergies Home Medications Medication Instructions Recorded Confirmed Type Insulin Aspart (For Pump) [NovoLOG 0.01 unit SQ-PUMP CONTINUOUS 02/21/23 12/14/23 History (For Pump)] FLUoxetine HCL [PROzac] 10 mg PO DAILY 07/14/23 12/14/23 History carvediloL [Coreg] 25 mg PO BID 07/14/23 12/14/23 History Losartan [Cozaar] 50 mg PO DAILY #60 tab 07/16/23 12/14/23 Rx Atorvastatin [Lipitor] 20 mg PO DAILY 11/14/23 12/14/23 History Folic Acid/Vit B Complex and C 0.8 mg PO DAILY 11/14/23 12/14/23 History [Lilian-Marsha Tablet] HYDROcodone/APAP 5-325MG [[place] 1 tab PO Q6H 11/14/23 12/14/23 History 5-325] Ondansetron Odt [Zofran ODT] 4 mg PO Q6H PRN 11/14/23 12/14/23 History amLODIPine [Norvasc] 10 mg PO DAILY 11/14/23 12/14/23 History hydrALAZINE HCL [Apresoline] 100 mg PO TID 11/14/23 12/14/23 History Torsemide [Demadex] 40 mg PO DAILY #90 tab 11/17/23 12/14/23 Rx Aspirin 81 mg PO DAILY 30 Days #30 tab 11/28/23 12/14/23 Rx Allergies Allergy/AdvReac Type Severity Reaction Status Date / Time Iodinated Contrast Media Allergy Anaphylaxis Verified 11/29/23 15:42 Physical Exam Vitals: Vital Signs Temp Pulse Pulse Resp BP BP Pulse Ox 12/15/23 07:07 98.6 F 75 18 145/71 95 12/15/23 02:00 98.1 F 76 18 147/69 92 L 12/14/23 18:14 97.6 F 71 19 167/82 93 L 12/14/23 17:24 71 16 174/88 92 L 12/14/23 16:46 72 16 186/110 92 L 12/14/23 14:36 97.4 F L 77 20 183/91 96 Intake and Output 12/14/23 12/15/23 12/15/23 22:59 06:59 14:59 Other: Voiding Method Toilet Urinal Weight 79.379 kg 91.7 kg Results 12/15/23 04:49 12/15/23 04:49 Cardiac Enzymes 12/14/23 12/15/23 Range/Units 18:00 04:49 AST 22 15 (17-59) U/L Coagulation 12/14/23 Range/Units 18:00 PT 11.6 (10.0-12.5) sec CBC 12/14/23 12/15/23 Range/Units 18:00 04:49 WBC 7.3 6.44 (3.8-10.6) k/uL RBC 2.85 L 2.45 L (4.30-5.90) m/uL Hgb 9.1 L 7.7 L (13.0-17.5) gm/dL Hct 28.7 L 24.2 L (39.0-53.0) % Plt Count 223 214 (150-450) k/uL Comprehensive Metabolic Panel 12/14/23 12/15/23 12/15/23 Range/Units 18:00 00:11 04:49 Sodium 132 L 131 L 136 (137-145) mmol/L Potassium 6.2 H* 6.3 H* 5.5 (3.5-5.1) mmol/L Chloride 98 100 98 (98-107) mmol/L Carbon Dioxide 26 22 25.1 (22-30) mmol/L BUN 63 H 67 H 66.2 H (9-20) mg/dL Creatinine 5.10 H 5.58 H 6.1 H (0.66-1.25) mg/dL Glucose 139 H 220 H 318 H (74-99) mg/dL Calcium 8.2 L 8.1 L 8.4 L (8.4-10.2) mg/dL AST 22 15 (17-59) U/L ALT 19 19 (4-49) U/L Alkaline Phosphatase 109 109 (38-126) U/L Total Protein 5.6 L 5.1 L (6.3-8.2) g/dL Albumin 2.9 L 3.1 L (3.5-5.0) g/dL 12/15/23 Range/Units 04:49 Sodium (137-145) mmol/L Potassium 5.2 H (3.5-5.1) mmol/L Chloride (98-107) mmol/L Carbon Dioxide (22-30) mmol/L BUN (9-20) mg/dL Creatinine (0.66-1.25) mg/dL Glucose (74-99) mg/dL Calcium (8.4-10.2) mg/dL AST (17-59) U/L ALT (4-49) U/L Alkaline Phosphatase (38-126) U/L Total Protein (6.3-8.2) g/dL Albumin (3.5-5.0) g/dL Current Medications Generic Name Dose Route Start Last Admin Trade Name Freq PRN Reason Stop Dose Admin Hydrocodone Bitart/Acetaminophen 1 each 12/15/23 10:36 Hydrocodone/Apap 5-325mg 1 Each Tab PO Q4HR PRN Moderate Pain (Scale 4 to 6) Amlodipine Besylate 10 mg 12/14/23 17:15 12/15/23 07:54 Amlodipine 10 Mg Tab PO 10 mg DAILY MUKUND Administration Atorvastatin Calcium 20 mg 12/15/23 09:00 12/15/23 07:54 Atorvastatin 20 Mg Tab PO 20 mg DAILY MUKUND Administration Carvedilol 25 mg 12/14/23 17:30 12/15/23 07:54 Carvedilol 12.5 Mg Tab PO 25 mg BID-W/MEALS MUKUND Administration Dextrose/Water 25 ml 12/14/23 17:58 Dextrose 50% Syringe 50 Ml IVP PER PROTOCOL PRN Hypoglycemia Protocol Fluoxetine HCl 10 mg 12/15/23 09:00 12/15/23 07:54 Fluoxetine Hcl 10 Mg Cap PO 10 mg DAILY MUKUND Administration Furosemide 80 mg 12/14/23 19:00 12/15/23 07:54 Furosemide 10 Mg/Ml 10 Ml Vial IV 80 mg BID MUKUND Administration Heparin Sodium (Porcine) 5,000 unit 12/15/23 00:00 12/15/23 07:38 Heparin Sodium,Porcine 5,000 Unit/Ml 1 Ml Vial SQ Not Given Q8HR [facility] Hydralazine HCl 100 mg 12/14/23 17:15 12/15/23 07:54 Hydralazine Hcl 50 Mg Tab PO 100 mg TID MUKUND Administration Insulin Aspart 0.01 unit 12/14/23 17:15 12/14/23 20:26 Insulin Aspart (For Pump) 100 Unit/Ml Vial SQ-PUMP Not Given CONTINUOUS MUKUND Morphine Sulfate 4 mg 12/15/23 10:36 12/15/23 10:56 Morphine Sulfate 4 Mg/Ml Syringe IV 4 mg Q4HR PRN Administration Severe Pain (Scale 7 to 10) Naloxone HCl 0.2 mg 12/14/23 15:52 Naloxone 0.4 Mg/Ml 1 Ml Vial IV Q2M PRN Opioid Reversal Intake and Output 12/14/23 12/15/23 12/15/23 22:59 06:59 14:59 Other: Voiding Method Toilet Urinal Weight 79.379 kg 91.7 kg 12/15/23 04:49 12/15/23 04:49
--- NOTE | 2023-12-15 13:22 | P.PN ---
Subjective Progress Note Date: 12/15/23 Hospital course: Patient is a pleasant 58-year-old male with a past medical history of ESRD on peritoneal dialysis, systolic heart failure with EF of 40%, moderate pulmonary hypertension, hypertension, hyperlipidemia, and insulin-dependent diabetes mellitus on insulin pump. He presented to the emergency department today secondary to reports of accidentally pulling out his dialysis catheter. Patient reports he bent over to black pickler his 8 lb dog and a few moments later realized that his catheter fell to the ground. He denies experiencing any pain or any bleeding from dialysis access site. In addition patient reports new onset lower extremity swelling over the past few days and mild exertional dyspnea. Patient reports completion of his IV antibiotic vancomycin for treatment of peritonitis on 12/12/2023. Denies any recent fevers, chills, dizziness, lightheadedness, chest pain, palpitations, shortness of breath at rest, abdominal pain, nausea, vomiting, or any other complaints at this time. On arrival to the emergency department patient underwent evaluation. Vital signs upon arrival show blood pressure 183/91, heart rate 77, respiratory rate 20, temp 97.4 F, and SpO2 of 96% on room air. Labs completed and reviewed. CBC showing macrocytic anemia with hemoglobin of 9.1 and MCV of 100.7. BMP showing hyponatremia with sodium of 132, hyperkalemia with potassium of 6.2, and renal function consistent with ESRD with BUN of 63, creatinine one 5.10, and GFR of 12. Blood glucose 139. Magnesium 2.2. Liver profile unremarkable with the exception of low albumin of 2.9. Patient was admitted under our services with consultation to vascular surgery team for urgent need for placement of dialysis catheter, nephrology secondary to hyperkalemia and needs for dialysis, and cardiology for acute on chronic systolic heart failure exacerbation. CHF consistent with cardiomegaly and mild pulmonary vascular congestion. BNP was 153,000. EKG showing normal sinus rhythm at 70 bpm with peaked T waves in leads V3 through V6. Physical exam: Patient was seen and fully evaluated at bedside upon returning from the OR for permacath placement. Patient currently having moderate pain at insertion site. Having any headache, lightheadedness, dizziness, chest pain or palpitations, shortness of breath, or experiencing any numbness/tingling/weakness in his extremities. Vital signs reviewed and stable. General: Nontoxic, no distress and appears stated age. Derm: Skin warm and dry, normal coloration for ethnicity. Previous dialysis catheter site showing a small scab but no active bleeding, no hematoma, no bruising and no signs of erythema or drainage. Head: Atraumatic, normocephalic and symmetric. Eyes: EOMs intact, no lid lag, and anicteric sclera Mouth: no lip lesions, mucus membranes moist Cardiovascular: regular rate and rhythm with normal S1S2, systolic murmur, positive posterior tibial pulses bilaterally, and cap refill < 2 seconds. Lungs: Respirations even, regular, and unlabored on room air. Lungs slightly diminished with no rhonchi, no rales, no wheezing, and no accessory muscle usage. Abdominal: soft, nontender to palpation, no guarding, no appreciable o rganomegaly Ext: ROM intact. No gross muscle atrophy, 3+ pitting bilateral lower extremity edema, no contractures Neuro: Speech clear, face symmetrical and CN II-XII grossly intact with no noted focal neuro deficits Psych: Alert and oriented to person, place, time, and situation. Appropriate and pleasant affect. Assessment and Plan of Care: Dialysis permacath catheter pulled out ESRD on hemodialysis Acute on chronic systolic heart failure exacerbation previously known EF of 40% Hyperkalemia Hypervolemic hyponatremia secondary to fluid volume overload. Anemia of chronic disease secondary to ESRD -Vascular surgery consulted and took patient to OR for placement of hemodialysis permacath this morning. -Nephrology consulted for patient's need for hemodialysis and hyperkalemia, discussed case with Dr. Elliott. -Cardiology consulted for acute on chronic systolic heart failure exacerbation -BNP was 153,000. -EKG showing normal sinus rhythm at 70 bpm with peaked T waves in leads V3 thr ough V6. -Chest X-ray positive for cardiomegaly and mild pulmonary vascular congestion. -Daily weights and Close monitoring of I's and O's -Cardiac/Renal diet with 1500 cc fluid restriction -Lasix 80 mg IVP twice daily -Continuation of daily medications including: Amlodipine 10 mg daily, atorvastatin 20 mg daily, carvedilol 25 mg twice daily with meals, and hydralazine 100 mg 3 times daily. -Continued close monitoring of electrolytes while diuresing. Insulin-Dependent Diabetes mellitus -Patient to continue use of personal insulin pump. Hypertension. -Continue medication regimen with amlodipine 10 mg daily,carvedilol 25 mg twice daily, and hydralazine 100 mg 3 times daily, -Losartan held secondary to hyperkalemia. Hyperlipidemia. -Continue medication regimen with atorvastatin 20 mg daily. Recent infection with peritonitis secondary to peritoneal dialysis catheter infection. -Reports recently completing outpatient course of IV antibiotics with vancomycin with final dose on 12/12/2023. Data and imaging reviewed: -BNP was 153,000. -EKG showing normal sinus rhythm at 70 bpm with peaked T waves in leads V3 throu gh V6. -Chest X-ray positive for cardiomegaly and mild pulmonary vascular congestion. -Labs completed and reviewed. Hemoglobin 7.7. BMP showing improvement of hyperkalemia from 6.38 potassium is now 5.2. Renal function showing BUN of 66.2 and creatinine of 6.1 with GFR of 10. Blood glucose 214. CODE STATUS: Full code DVT prophylaxis: Heparin Anticipated discharge date: Clinical course to determine Anticipated discharge place: Home Patient was seen independently by Nurse Practitioner. This document was prepared using [employer] dictation software. Please allow for errors in curb setter while rare they do occur. Anton Salgado NP rendered care for this patient independently, reviewed the findings and plan as documented in the note above. I did not physically speak with or examine the patient on this date. Objective - Vital Signs Vital signs: Vital Signs Temp 98.6 F 12/15/23 07:07 Pulse 75 12/15/23 07:07 Resp 18 12/15/23 07:07 BP 145/71 12/15/23 07:07 Pulse Ox 95 12/15/23 07:07 FiO2 Intake & Output 12/14/23 12/15/23 12/15/23 18:59 06:59 18:59 Weight 79.379 kg 91.7 kg Other: Voiding Method Toilet Urinal - Labs CBC & Chem 7: 12/15/23 04:49 12/15/23 04:49 Labs: Abnormal Lab Results - Last 24 Hours (Table) 12/14/23 12/14/23 12/15/23 Range/Units 18:00 18:00 00:11 RBC 2.85 L (4.30-5.90) m/uL Hgb 9.1 L (13.0-17.5) gm/dL Hct 28.7 L (39.0-53.0) % MCV 100.7 H (80.0-100.0) fL RDW 16.2 H (11.5-15.5) % Lymphocytes # (Manual) 0.80 L (1.0-4.8) k/uL Eosinophils # (Manual) 1.31 H (0-0.7) k/uL Sodium 132 L 131 L (137-145) mmol/L Potassium 6.2 H* 6.3 H* (3.5-5.1) mmol/L BUN 63 H 67 H (9-20) mg/dL Creatinine 5.10 H 5.58 H (0.66-1.25) mg/dL Glucose 139 H 220 H (74-99) mg/dL POC Glucose (mg/dL) (70-110) mg/dL Calcium 8.2 L 8.1 L (8.4-10.2) mg/dL Phosphorus 6.7 H (2.5-4.5) mg/dL Total Protein 5.6 L (6.3-8.2) g/dL Albumin 2.9 L (3.5-5.0) g/dL 12/15/23 12/15/23 12/15/23 Range/Units 02:16 03:10 04:49 RBC (4.30-5.90) m/uL Hgb (13.0-17.5) gm/dL Hct (39.0-53.0) % MCV (80.0-100.0) fL RDW (11.5-15.5) % Lymphocytes # (Manual) (1.0-4.8) k/uL Eosinophils # (Manual) (0-0.7) k/uL Sodium (137-145) mmol/L Potassium 5.2 H (3.5-5.1) mmol/L BUN (9-20) mg/dL Creatinine (0.66-1.25) mg/dL Glucose (74-99) mg/dL POC Glucose (mg/dL) 336 H 375 H (70-110) mg/dL Calcium (8.4-10.2) mg/dL Phosphorus (2.5-4.5) mg/dL Total Protein (6.3-8.2) g/dL Albumin (3.5-5.0) g/dL 12/15/23 Range/Units 06:18 RBC (4.30-5.90) m/uL Hgb (13.0-17.5) gm/dL Hct (39.0-53.0) % MCV (80.0-100.0) fL RDW (11.5-15.5) % Lymphocytes # (Manual) (1.0-4.8) k/uL Eosinophils # (Manual) (0-0.7) k/uL Sodium (137-145) mmol/L Potassium (3.5-5.1) mmol/L BUN (9-20) mg/dL Creatinine (0.66-1.25) mg/dL Glucose (74-99) mg/dL POC Glucose (mg/dL) 305 H (70-110) mg/dL Calcium (8.4-10.2) mg/dL Phosphorus (2.5-4.5) mg/dL Total Protein (6.3-8.2) g/dL Albumin (3.5-5.0) g/dL
[2023-12-15] MEDS: HYDROmorphone 1 MG/ML 1 ML SYRINGE IVP PRN (14:22)
[2023-12-15] MEDS: Insulin Aspart (For Pump) 100 UNIT/ML VIAL SQ-PUMP SCH (15:38)
[2023-12-15 16:23] LABS: Glucose,Whole Blood 166 mg/dL (70-110)
[2023-12-15 21:19] LABS: Glucose,Whole Blood 240 mg/dL (70-110)
[2023-12-15] MEDS: HYDROcodone/APAP 5-325MG 1 EACH TAB PO PRN (23:20)
[2023-12-16 06:25] LABS: Glucose,Whole Blood 215 mg/dL (70-110)
[2023-12-16 09:15] LABS: HCT 25.6 % (39.0-53.0); HGB 7.8 gm/dL (13.0-17.5); Hypochromasia Slight; MCH 31.3 pg (25.0-35.0); MCHC 30.4 g/dL (31.0-37.0); Macrocytosis Moderate; Mean Platelet Volume 8.4; Platelet Count 209 k/uL (150-450); RBC 2.48 m/uL (4.30-5.90); RDW 15.9 % (11.5-15.5); WBC 4.9 k/uL (3.8-10.6)
--- NOTE | 2023-12-16 09:18 | OP ---
OPERATIVE REPORT DATE OF SERVICE : 12/15/2023 PREOPERATIVE DIAGNOSIS: Acute chronic renal failure. POSTOPERATIVE DIAGNOSIS: Acute chronic renal failure. PROCEDURE: Ultrasound-guided 28 cm dialysis catheter, left jugular approach. DESCRIPTION OF PROCEDURE: The patient was brought to the optical laboratory technician. Left side of the neck and chest were prepped and drapes applied in the usual sterile manner. The patient had a dialysis catheter placed in the past. He accidentally pulled the catheter out. After that, we passed a micropuncture guidewire through the jugular approach and 4-German dilator advanced on top of the guidewire. Then we passed a regular guidewire which was parked at the inferior vena cava. A tunnel was created. Through the tunnel, we brought a 28 cm dialysis catheter. The dilator was advanced on the top of the guidewire under fluoroscopic control. Sheath was advanced on the top of the guidewire under fluoroscopic control. Through the sheath, we introduced the dialysis catheter. Tip of the catheter in superior vena cavoatrial junction, flushed with heparin saline and secured with Vicryl and 3-0 nylon. Dressing applied. The patient tolerated the procedure well. The patient will have x-ray of the chest, then the patient is to go for dialysis. MMODL / IJN: [id number] / MTDD
[2023-12-16 09:34] LABS: African American GFR (CKD) 15 (>60 ml/min/1.73 sqM); Anion Gap 5 mmol/L; Blood Urea Nitrogen 42 mg/dL (9-20); Calcium 7.8 mg/dL (8.4-10.2); Carbon Dioxide 32 mmol/L (22-30); Chloride 97 mmol/L (98-107); Glucose 94 mg/dL (74-99); Non-African American GFR(CKD) 13 (>60 ml/min/1.73 sqM); Potassium 4.3 mmol/L (3.5-5.1); Sodium 134 mmol/L (137-145)
[2023-12-16 12:12] LABS: Glucose,Whole Blood 85 mg/dL (70-110)
--- NOTE | 2023-12-16 12:24 | P.PN ---
Subjective patient is seen on hemodialysis. Tolerating treatment well. No significant complaints today. Objective - Vital Signs Vital signs: Vital Signs Temp 98.1 F 12/16/23 07:35 Pulse 67 12/16/23 07:35 Resp 17 12/16/23 07:35 BP 169/89 12/16/23 07:35 Pulse Ox 96 12/16/23 07:35 FiO2 Intake & Output 12/15/23 12/16/23 12/16/23 18:59 06:59 18:59 Intake Total 400 Output Total 4400 Balance -4000 Weight 87.7 kg Intake: Hemodialysis 400 Output: Hemodialysis 4400 Other: # Voids 2 - Exam patient is awake, comfortable, no acute distress Examination shows 1+ edema bilaterally Abdomen is soft nontender CLINICAL MEDICAL ASSISTANT exam grossly intact - Labs CBC & Chem 7: 12/16/23 08:48 12/16/23 08:48 Labs: Abnormal Lab Results - Last 24 Hours (Table) 12/15/23 12/15/23 12/16/23 Range/Units 16:22 21:17 04:53 RBC (4.30-5.90) m/uL Hgb (13.0-17.5) gm/dL Hct (39.0-53.0) % MCV (80.0-100.0) fL MCHC (31.0-37.0) g/dL RDW (11.5-15.5) % Sodium (137-145) mmol/L Chloride (98-107) mmol/L Carbon Dioxide (22-30) mmol/L BUN (9-20) mg/dL Creatinine (0.66-1.25) mg/dL POC Glucose (mg/dL) 166 H 240 H (70-110) mg/dL Calcium (8.4-10.2) mg/dL Phosphorus 6.2 H (2.4-5.1) mg/dL 12/16/23 12/16/23 12/16/23 Range/Units 06:23 08:48 08:48 RBC 2.48 L (4.30-5.90) m/uL Hgb 7.8 L (13.0-17.5) gm/dL Hct 25.6 L (39.0-53.0) % MCV 103.0 H (80.0-100.0) fL MCHC 30.4 L (31.0-37.0) g/dL RDW 15.9 H (11.5-15.5) % Sodium 134 L (137-145) mmol/L Chloride 97 L (98-107) mmol/L Carbon Dioxide 32 H (22-30) mmol/L BUN 42 H (9-20) mg/dL Creatinine 4.56 H (0.66-1.25) mg/dL POC Glucose (mg/dL) 215 H (70-110) mg/dL Calcium 7.8 L (8.4-10.2) mg/dL Phosphorus (2.4-5.1) mg/dL Assessment and Plan Assessment: 1. End-stage renal disease maintained on hemodialysis on Friday schedule. Permacath fell out and had a new catheter placed yesterday. 2. Volume overload. receiving extra treatment today. 3. Acute on chronic systolic CHF with ejection fraction of 40% with moderate pulmonary hypertension. 4. Diabetes mellitus. 5. Volume overload. 6. Hyperkalemia secondary to chronic kidney disease and losartan. Improved with medical management. 7. Anemia of chronic kidney disease. Plan: hemodialysis in a.m. Patient can be discharged from nephrology standpoint.
[2023-12-16 13:21] LABS: % Iron Saturation 8.06 (15.00-50.00)
--- NOTE | 2023-12-16 14:27 | P.PN ---
Subjective Progress Note Date: 12/16/23 Hospital course: Patient is a pleasant 58-year-old male with a past medical history of ESRD on peritoneal dialysis, systolic heart failure with EF of 40%, moderate pulmonary hypertension, hypertension, hyperlipidemia, and insulin-dependent diabetes mellitus on insulin pump. He presented to the emergency department today secondary to reports of accidentally pulling out his dialysis catheter. Patient reports he bent over to parts picker his 8 lb dog and a few moments later realized that his catheter fell to the ground. He denies experiencing any pain or any bleeding from dialysis access site. In addition patient reports new onset lower extremity swelling over the past few days and mild exertional dyspnea. Patient reports completion of his IV antibiotic vancomycin for treatment of peritonitis on 12/12/2023. Denies any recent fevers, chills, dizziness, lightheadedness, chest pain, palpitations, shortness of breath at rest, abdominal pain, nausea, vomiting, or any other complaints at this time. On arrival to the emergency department patient underwent evaluation. Vital signs upon arrival show blood pressure 183/91, heart rate 77, respiratory rate 20, temp 97.4 F, and SpO2 of 96% on room air. Labs completed and reviewed. CBC showing macrocytic anemia with hemoglobin of 9.1 and MCV of 100.7. BMP showing hyponatremia with sodium of 132, hyperkalemia with potassium of 6.2, and renal function consistent with ESRD with BUN of 63, creatinine one 5.10, and GFR of 12. Blood glucose 139. Magnesium 2.2. Liver profile unremarkable with the exception of low albumin of 2.9. Patient was admitted under our services with consultation to vascular surgery team for urgent need for placement of dialysis catheter, nephrology secondary to hyperkalemia and needs for dialysis, and cardiology for acute on chronic systolic heart failure exacerbation. CHF consistent with cardiomegaly and mild pulmonary vascular congestion. BNP was 153,000. EKG showing normal sinus rhythm at 70 bpm with peaked T waves in leads V3 through V6. Physical exam: Patient was seen and fully evaluated at bedside this morning. He continues to report mild pain/discomfort to dialysis catheter insertion site, mild shortness of breath, and overall fatigue. He denies having any headache, lightheadedness, dizziness, palpitations, or experiencing any numbness/tingling/weakness in his extremities. Patient did have a significant noted improvement of bilateral lower extremity edema. Vital signs reviewed and stable. General: Nontoxic, no distress and appears stated age. Derm: Skin warm and dry, normal coloration for ethnicity. Previous dialysis catheter site showing a small scab but no active bleeding, no hematoma, no bruising and no signs of erythema or drainage. Head: Atraumatic, normocephalic and symmetric. Eyes: EOMs intact, no lid lag, and anicteric sclera Mouth: no lip lesions, mucus membranes moist Cardiovascular: regular rate and rhythm with normal S1S2, systolic murmur, positive posterior tibial pulses bilaterally, and cap refill < 2 seconds. Lungs: Respirations even, regular, and unlabored on room air. Lungs slightly diminished with no rhonchi, no rales, no wheezing, and no accessory muscle usage. Abdominal: soft, nontender to palpation, no guarding, no appreciable organome halima Ext: ROM intact. No gross muscle atrophy, 1-2+ pitting bilateral lower extremity edema, no contractures Neuro: Speech clear, face symmetrical and CN II-XII grossly intact with no noted focal neuro deficits Psych: Alert and oriented to person, place, time, and situation. Appropriate and pleasant affect. Assessment and Plan of Care: Dialysis permacath catheter pulled out ESRD on hemodialysis Acute on chronic systolic heart failure exacerbation previously known EF of 40% Hyperkalemia Hypervolemic hyponatremia secondary to fluid volume overload. Anemia of chronic disease secondary to ESRD -Vascular surgery consulted and took patient to OR for placement of hemodialysis permacath this morning. -Nephrology following. -Cardiology following, reviewed documentation in chart. -BNP was 153,000. -EKG showing normal sinus rhythm at 70 bpm with peaked T waves in leads V3 through V6. -Chest X-ray positive for cardiomegaly and mild pulmonary vascular congestion. -Daily weights and Close monitoring of I's and O's -Cardiac/Renal diet with 1500 cc fluid restriction -Patient received IV diuretic with Lasix 80 mg this morning and per cardiology recommendations to be switched to p.o. diuretics with torsemide 40 mg daily on 12/17/2023. In addition cardiology starting patient on Imdur 30 mg daily. -Continuation of daily medications including: Amlodipine 10 mg daily, atorvastatin 20 mg daily, carvedilol 25 mg twice daily with meals, and hydralazine 100 mg 3 times daily. -Continued close monitoring of electrolytes while diuresing. Insulin-Dependent Diabetes mellitus -Patient to continue use of personal insulin pump. Hypertension. -Continue medication regimen with amlodipine 10 mg daily,carvedilol 25 mg twice daily, and hydralazine 100 mg 3 times daily, -Losartan held secondary to hyperkalemia. Hyperlipidemia. -Continue medication regimen with atorvastatin 20 mg daily. Recent infection with peritonitis secondary to peritoneal dialysis catheter infection. -Reports recently completing outpatient course of IV antibiotics with vancomycin with final dose on 12/12/2023. Data and imaging reviewed: -Vital signs reviewed. Blood pressure 169/89, heart rate 67, respiratory rate 17, temp 98.1 F, and SpO2 of 96% on room air. -Labs completed and reviewed. CBC showing anemia with hemoglobin 7.8. BMP showing hypochloremia with chloride of 97, sodium 134, bicarb 32, BUN 42, creatinine 4.56, GFR of 13. Magnesium normal findings at 2.0. CODE STATUS: Full code DVT prophylaxis: Heparin Anticipated discharge date: Likely tomorrow morning after dialysis. Anticipated discharge place: Home Patient was seen independently by Nurse Practitioner. This document was prepared using [employer] dictation software. Please allow for errors in government gauger while rare they do occur. Anton Salgado NP rendered care for this patient independently, reviewed the findings and plan as documented in the note above. I did not physically speak with or examine the patient on this date. Objective - Vital Signs Vital signs: Vital Signs Temp 98.3 F 12/16/23 00:28 Pulse 75 12/16/23 00:28 Resp 15 12/16/23 00:28 BP 174/87 12/16/23 00:28 Pulse Ox 97 12/16/23 00:28 FiO2 Intake & Output 12/15/23 12/16/23 12/16/23 18:59 06:59 18:59 Intake Total 400 Output Total 4400 Balance -4000 Weight 87.7 kg Intake: Hemodialysis 400 Output: Hemodialysis 4400 - Labs CBC & Chem 7: 12/16/23 08:48 12/16/23 08:48 Labs: Abnormal Lab Results - Last 24 Hours (Table) 12/15/23 12/15/23 12/15/23 Range/Units 04:49 04:49 11:41 RBC 2.45 L (4.40-5.60) X 10*6/uL Hgb 7.7 L (13.0-17.0) g/dL Hct 24.2 L (39.6-50.0) % MCV 98.8 H (80.0-97.0) FL MCHC 31.8 L (32.0-37.0) g/dL RDW 15.9 H (11.5-14.5) % Lymphocytes # 0.49 L (0.90-5.00) X 10*3/uL Eosinophils # 1.34 H (0.04-0.35) X 10*3/uL Anion Gap 12.90 H (4.00-12.00) mmol/L BUN 66.2 H (9.0-27.0) mg/dL Creatinine 6.1 H (0.6-1.5) mg/dL Est GFR (CKD-EPI) 10 L (>=60) BUN/Creatinine Ratio 10.85 L (12.00-20.00) Ratio Glucose 318 H (70-110) mg/dL POC Glucose (mg/dL) 214 H (70-110) mg/dL Calcium 8.4 L (8.7-10.3) mg/dL Total Protein 5.1 L (6.2-8.2) g/dL Albumin 3.1 L (3.8-4.9) g/dL Albumin/Globulin Ratio 1.55 L (1.60-3.17) Ratio 12/15/23 12/15/23 12/16/23 Range/Units 16:22 21:17 06:23 RBC (4.40-5.60) X 10*6/uL Hgb (13.0-17.0) g/dL Hct (39.6-50.0) % MCV (80.0-97.0) FL MCHC (32.0-37.0) g/dL RDW (11.5-14.5) % Lymphocytes # (0.90-5.00) X 10*3/uL Eosinophils # (0.04-0.35) X 10*3/uL Anion Gap (4.00-12.00) mmol/L BUN (9.0-27.0) mg/dL Creatinine (0.6-1.5) mg/dL Est GFR (CKD-EPI) (>=60) BUN/Creatinine Ratio (12.00-20.00) Ratio Glucose (70-110) mg/dL POC Glucose (mg/dL) 166 H 240 H 215 H (70-110) mg/dL Calcium (8.7-10.3) mg/dL Total Protein (6.2-8.2) g/dL Albumin (3.8-4.9) g/dL Albumin/Globulin Ratio (1.60-3.17) Ratio
--- NOTE | 2023-12-16 14:36 | P.PN ---
Subjective Progress Note Date: 12/16/23 Consult reason: congestive heart failure Chief complaint: shortness of breath History of present illness: History of present illness: Patient is a pleasant 58-year-old male with significant past medical history of end-stage renal disease on hemodialysis, systolic heart failure with EF 40%, moderate pulmonary hypertension, hypertension, hyperlipidemia, diabetes type 2 presenting to the emergency department after he accidentally dislodged his dialysis catheter yesterday. He does follow in the office with Dr. Means. His hemodialysis catheter was replaced today. He was recently evaluated by cardiology during prior admission 2 weeks ago. Echocardiogram from 11/26/2023 with a EF 40%, RVSP 53. He then underwent left heart catheterization 11/28/2023 which showed relatively normal coronary arteries. Labs today show hemoglobin 9.1, potassium 5.2, sodium 131, creatinine 5.58. His last hemodialysis was on Friday. He has been feeling okay. He states he believes he was getting stronger at home. Denies any chest pain or pressure. He does have occasional shortness of breath. 12/15 Blood pressure 141/77, heart rate 64, pulse ox 96% on room air. Repeat blood work reveals hemoglobin 7.8. Sodium 134, potassium 4.3, BUN 42 and creatinine 4.56. Patient underwent hemodialysis today and yesterday. Nephrology has cleared him for discharge. PHYSICAL EXAMINATION: This is a 58-year-old male in no apparent distress at the time of my examination. HEENT: Head is atraumatic, normocephalic. Pupils are equal, round. Sclerae anicteric. Conjunctivae are clear. Mucous membranes of the mouth are moist. Neck is supple. There is no jugular venous distention. No carotid bruit is heard. CHEST EXAMINATION: Lungs are clear to auscultation. No chest wall tenderness is noted on palpation or with deep breathing. Dialysis catheter dressing clean dry and intact. HEART EXAMINATION: Heart regular rate and rhythm.dipine to los S1, S2 heard. No murmurs, gallops or rub. ABDOMEN: Soft, nontender. Bowel sounds are heard. EXTREMITIES: 2+ peripheral pulses with + peripheral edema NEUROLOGIC EXAMINATION: Patient is awake, alert and oriented x3. IMPRESSION AND PLAN: End-stage renal disease on hemodialysis Chronic systolic heart failure with EF 40% Pulmonary hypertension, RVSP 53 Hypertension Hyperlipidemia Diabetes type 2 Shortness of breath Hyperkalemia PLAN: Continue with current regimen. Transition IV Lasix to torsemide 40 mg daily and add Imdur 30 mg daily Patient is cleared for discharge from cardiology and may follow-up with Dr. Clare Means in 1 to 2 weeks. Nurse practitioner note has been reviewed, I agree with documented findings and plan of care. Patient was seen and examined. Objective - Vital Signs Vital signs: Vital Signs Temp 97.6 F 12/16/23 12:59 Pulse 64 12/16/23 12:59 Resp 16 12/16/23 12:59 BP 141/77 12/16/23 12:59 Pulse Ox 96 12/16/23 07:35 FiO2 Intake & Output 12/15/23 12/16/23 12/16/23 18:59 06:59 18:59 Intake Total 400 250 Output Total 4400 2500 Balance -4000 -2250 Weight 87.7 kg Intake: Hemodialysis 400 250 Output: Hemodialysis 4400 2500 Other: # Voids 2 - Labs CBC & Chem 7: 12/16/23 08:48 12/16/23 08:48 Labs: Abnormal Lab Results - Last 24 Hours (Table) 12/15/23 12/15/23 12/16/23 Range/Units 16:22 21:17 04:53 RBC (4.30-5.90) m/uL Hgb (13.0-17.5) gm/dL Hct (39.0-53.0) % MCV (80.0-100.0) fL MCHC (31.0-37.0) g/dL RDW (11.5-15.5) % Sodium (137-145) mmol/L Chloride (98-107) mmol/L Carbon Dioxide (22-30) mmol/L BUN (9-20) mg/dL Creatinine (0.66-1.25) mg/dL POC Glucose (mg/dL) 166 H 240 H (70-110) mg/dL Calcium (8.4-10.2) mg/dL Phosphorus 6.2 H (2.4-5.1) mg/dL 12/16/23 12/16/23 12/16/23 Range/Units 06:23 08:48 08:48 RBC 2.48 L (4.30-5.90) m/uL Hgb 7.8 L (13.0-17.5) gm/dL Hct 25.6 L (39.0-53.0) % MCV 103.0 H (80.0-100.0) fL MCHC 30.4 L (31.0-37.0) g/dL RDW 15.9 H (11.5-15.5) % Sodium 134 L (137-145) mmol/L Chloride 97 L (98-107) mmol/L Carbon Dioxide 32 H (22-30) mmol/L BUN 42 H (9-20) mg/dL Creatinine 4.56 H (0.66-1.25) mg/dL POC Glucose (mg/dL) 215 H (70-110) mg/dL Calcium 7.8 L (8.4-10.2) mg/dL Phosphorus (2.4-5.1) mg/dL
[2023-12-16] MEDS: ISOSORBIDE MONONITRATE ER 30 MG TAB.ER.24H PO SCH (14:55)
[2023-12-16 16:49] LABS: Glucose,Whole Blood 181 mg/dL (70-110)
[2023-12-16 20:29] LABS: Glucose,Whole Blood 174 mg/dL (70-110)
[2023-12-17 05:30] LABS: Glucose,Whole Blood 51 mg/dL (70-110)
[2023-12-17 05:49] LABS: Glucose,Whole Blood 82 mg/dL (70-110)
[2023-12-17] MEDS: TORSEMIDE 20 MG TAB PO SCH (08:43)
[2023-12-17 09:15] LABS: Magnesium 2.1 mg/dL (1.5-2.4)
[2023-12-17 09:24] LABS: HCT 24.6 % (39.6-50.0); HGB 7.7 g/dL (13.0-17.0); MCHC 31.3 g/dL (32.0-37.0); MCV 102.1 FL (80.0-97.0); Mean Platelet Volume 10.4 FL (9.5-12.2); NRBC Per 100 WBC 0 X 10*3/uL (0.00-0.01); Platelet Count 202 X 10*3/uL (140-440); RBC 2.41 X 10*6/uL (4.40-5.60); RDW 15.5 % (11.5-14.5); WBC 5.41 X 10*3/uL (4.50-10.00)
[2023-12-17 09:28] LABS: BUN/Creat Ratio 7.59 Ratio (12.00-20.00); Blood Urea Nitrogen 34.9 mg/dL (9.0-27.0); Calcium 7.8 mg/dL (8.7-10.3); Carbon Dioxide 27.1 mmol/L (21.6-31.8); Chloride 98 mmol/L (96-109); Glucose 56 mg/dL (70-110); Potassium 4.9 mmol/L (3.5-5.5); Sodium 137 mmol/L (135-145)
[2023-12-17 11:45] LABS: Glucose,Whole Blood 121 mg/dL (70-110)
[2023-12-17 14:27] VITALS: BMI 15.7
--- NOTE | 2023-12-17 16:29 | P.DS ---
Providers Date of admission: 12/14/23 15:52 Expected date of discharge: 12/17/23 Attending physician: Suman Gaviria MD Consults: 12/14/23 16:13 Consult Physician Urgent Consulting Provider: Dylan Su Consult Reason/Comments: dislodged dialysis catheter Do you want consulting provider notified?: Already Contacted 12/14/23 18:22 Consult Physician Routine Consulting Provider: Jaspreet Pack Consult Reason/Comments: acute on chronic systolic HF exacerbation Do you want consulting provider notified?: Yes 12/14/23 18:27 Consult Physician Routine Consulting Provider: Juan Miguel Elliott Consult Reason/Comments: hyperkalemia and need for dialysis, pt pulled out rukhsana catheter Do you want consulting provider notified?: Yes Primary care physician: Devon Mattson Hospital Course: Discharge Diagnosis: Dialysis permacath catheter pulled out. Dialysis permacath was replaced by vascular surgery. ESRD on hemodialysis Acute on chronic systolic heart failure exacerbation previously known EF of 40% Hyperkalemia. Losartan discontinued secondary to hyperkalemia. Hypervolemic hyponatremia secondary to fluid volume overload. Anemia of chronic disease secondary to ESRD. Diabetic wound right foot. Patient to follow-up outpatient with wound care clinic. Insulin-Dependent Diabetes mellitus. Patient to continue use of personal insulin pump. Hypertension. Continue medication regimen with amlodipine 10 mg daily,carvedilol 25 mg twice daily, and hydralazine 100 mg 3 times daily, Losartan discontinued secondary to hyperkalemia. Hyperlipidemia. Continue medication regimen with atorvastatin 20 mg daily. Recent infection with peritonitis secondary to peritoneal dialysis catheter infection. Reports recently completing outpatient course of IV antibiotics with vancomycin with final dose on 12/12/2023. Hospital course: Patient is a pleasant 58-year-old male with a past medical history of ESRD on peritoneal dialysis, systolic heart failure with EF of 40%, moderate pulmonary hypertension, hypertension, hyperlipidemia, and insulin-dependent diabetes mellitus on insulin pump. He presented to the emergency department today secondary to reports of accidentally pulling out his dialysis catheter. Patient reports he bent over to miner pick his 8 lb dog and a few moments later realized that his catheter fell to the ground. He denies experiencing any pain or any bleeding from dialysis access site. In addition patient reports new onset lower extremity swelling over the past few days and mild exertional dyspnea. Patient reports completion of his IV antibiotic vancomycin for treatment of peritonitis on 12/12/2023. Denies any recent fevers, chills, dizziness, lightheadedness, chest pain, palpitations, shortness of breath at rest, abdominal pain, nausea, vomiting, or any other complaints at this time. On arrival to the emergency department patient underwent evaluation. Vital signs upon arrival show blood pressure 183/91, heart rate 77, respiratory rate 20, temp 97.4 F, and SpO2 of 96% on room air. Labs completed and reviewed. CBC showing macrocytic anemia with hemoglobin of 9.1 and MCV of 100.7. BMP showing hyponatremia with sodium of 132, hyperkalemia with potassium of 6.2, and renal function consistent with ESRD with BUN of 63, creatinine one 5.10, and GFR of 12. Blood glucose 139. Magnesium 2.2. Liver profile unremarkable with the exception of low albumin of 2.9. Patient was admitted under our services with consultation to vascular surgery team for urgent need for placement of dialysis catheter, nephrology secondary to hyperkalemia and needs for dialysis, and cardiology for acute on chronic systolic heart failure exacerbation. CHF consistent with cardiomegaly and mild pulmonary vascular congestion. BNP was 153,000. EKG showing normal sinus rhythm at 70 bpm with peaked T waves in leads V3 through V6. Dialysis permacath was replaced by vascular surgery. Patient underwent successful IV diuresis throughout hospitalization and after completion of dialysis today is being discharged home and to follow-up outpatient with PCP in 1 to 2 days, cardiology in 1 week, nephrology in 1 week, and wound care center. Patient to continue with dialysis as scheduled Friday/Friday/Fridays. Physical exam: Vital signs reviewed and stable. General: Nontoxic, no distress and appears stated age. Derm: Skin warm and dry, normal coloration for ethnicity. Permacath in place left chest Head: Atraumatic, normocephalic and symmetric. Eyes: EOMs intact, no lid lag, and anicteric sclera Mouth: no lip lesions, mucus membranes moist Cardiovascular: regular rate and rhythm with normal S1S2, systolic murmur, positive posterior tibial pulses bilaterally, and cap refill < 2 seconds. Lungs: Respirations even, regular, and unlabored on room air. Lungs slightly diminished with no rhonchi, no rales, no wheezing, and no accessory muscle usage. Abdominal: soft, nontender to palpation, no guarding, no appreciable organomegaly Ext: ROM intact. No gross muscle atrophy, 1-2+ pitting bilateral lower extremity edema, no contractures Neuro: Speech clear, face symmetrical and CN II-XII grossly intact with no noted focal neuro deficits Psych: Alert and oriented to person, place, time, and situation. Appropriate and pleasant affect. A total of 35 minutes of time were spent preparing this complex discharge summary. Pt was discharged on 12/17/2023 at 4:18 PM. Patient was seen independently by Nurse Practitioner. This document was prepared using [employer] dictation software. Please allow for errors in mis manager while rare they do occur. Patient Condition at Discharge: Stable Plan - Discharge Summary Discharge Rx Participant: No New Discharge Prescriptions: New Isosorbide Mononitrate ER [Imdur] 30 mg PO DAILY 30 Days #30 tab Continue Insulin Aspart (For Pump) [NovoLOG (For Pump)] 0.01 unit SQ-PUMP CONTINUOUS carvediloL [Coreg] 25 mg PO BID FLUoxetine HCL [PROzac] 10 mg PO DAILY HYDROcodone/APAP 5-325MG [[place] 5-325] 1 tab PO Q6H Atorvastatin [Lipitor] 20 mg PO DAILY Folic Acid/Vit B Complex and C [Lilian-Marsha Tablet] 0.8 mg PO DAILY Aspirin 81 mg PO DAILY 30 Days #30 tab hydrALAZINE HCL [Apresoline] 100 mg PO TID amLODIPine [Norvasc] 10 mg PO DAILY Ondansetron Odt [Zofran ODT] 4 mg PO Q6H PRN PRN Reason: Nausea And Vomiting Torsemide [Demadex] 40 mg PO DAILY #90 tab Discontinued Losartan [Cozaar] 50 mg PO DAILY #60 tab Discharge Medication List Insulin Aspart (For Pump) [NovoLOG (For Pump)] 0.01 unit SQ-PUMP CONTINUOUS 02/21/23 [History] FLUoxetine HCL [PROzac] 10 mg PO DAILY 07/14/23 [History] carvediloL [Coreg] 25 mg PO BID 07/14/23 [History] Atorvastatin [Lipitor] 20 mg PO DAILY 11/14/23 [History] Folic Acid/Vit B Complex and C [Lilian-Marsha Tablet] 0.8 mg PO DAILY 11/14/23 [History] HYDROcodone/APAP 5-325MG [[place] 5-325] 1 tab PO Q6H 11/14/23 [History] Ondansetron Odt [Zofran ODT] 4 mg PO Q6H PRN 11/14/23 [History] amLODIPine [Norvasc] 10 mg PO DAILY 11/14/23 [History] hydrALAZINE HCL [Apresoline] 100 mg PO TID 11/14/23 [History] Torsemide [Demadex] 40 mg PO DAILY #90 tab 11/17/23 [Rx] Aspirin 81 mg PO DAILY 30 Days #30 tab 11/28/23 [Rx] Isosorbide Mononitrate ER [Imdur] 30 mg PO DAILY 30 Days #30 tab 12/17/23 [Rx] Follow up Appointment(s)/Referral(s): Devon Mattson MD [Primary Care Provider] - 1-2 days
[2023-12-17 16:44] LABS: Glucose,Whole Blood 103 mg/dL (70-110)
[2023-12-17 19:23] VITALS: BP 179/86; PULSE 72; RESP 18; TEMP 98
--- NOTE | 2023-12-17 22:43 | P.PN ---
Subjective patient is seen for follow-up for end-stage renal disease. Scheduled for hemodialysis today.. Tolerating treatment well. No significant complaints today. Objective - Vital Signs Vital signs: Vital Signs Temp 98 F 12/17/23 18:54 Pulse 72 12/17/23 18:55 Resp 18 12/17/23 18:54 BP 179/86 12/17/23 18:55 Pulse Ox 93 L 12/17/23 18:55 FiO2 Intake & Output 12/17/23 12/17/23 12/18/23 06:59 18:59 06:59 Intake Total 500 Output Total 400 4500 Balance -400 -4000 Weight 55.5 kg 55.5 kg Intake: Hemodialysis 500 Output: Urine 400 Hemodialysis 4500 Other: Voiding Method Toilet Urinal # Voids 1 - Exam patient is awake, comfortable, no acute distress Examination shows 1+ edema bilaterally Abdomen is soft nontender CUSHION FORMER exam grossly intact - Labs CBC & Chem 7: 12/17/23 04:42 12/17/23 04:42 Labs: Abnormal Lab Results - Last 24 Hours (Table) 12/17/23 12/17/23 12/17/23 Range/Units 04:42 04:42 05:28 RBC 2.41 L (4.40-5.60) X 10*6/uL Hgb 7.7 L (13.0-17.0) g/dL Hct 24.6 L (39.6-50.0) % MCV 102.1 H (80.0-97.0) FL MCHC 31.3 L (32.0-37.0) g/dL RDW 15.5 H (11.5-14.5) % BUN 34.9 H (9.0-27.0) mg/dL Creatinine 4.6 H (0.6-1.5) mg/dL Est GFR (CKD-EPI) 14 L (>=60) BUN/Creatinine Ratio 7.59 L (12.00-20.00) Ratio Glucose 56 L (70-110) mg/dL POC Glucose (mg/dL) 51 L (70-110) mg/dL Calcium 7.8 L (8.7-10.3) mg/dL 12/17/23 Range/Units 11:43 RBC (4.40-5.60) X 10*6/uL Hgb (13.0-17.0) g/dL Hct (39.6-50.0) % MCV (80.0-97.0) FL MCHC (32.0-37.0) g/dL RDW (11.5-14.5) % BUN (9.0-27.0) mg/dL Creatinine (0.6-1.5) mg/dL Est GFR (CKD-EPI) (>=60) BUN/Creatinine Ratio (12.00-20.00) Ratio Glucose (70-110) mg/dL POC Glucose (mg/dL) 121 H (70-110) mg/dL Calcium (8.7-10.3) mg/dL Assessment and Plan Assessment: 1. End-stage renal disease maintained on hemodialysis on Friday schedule. Permacath fell out and had a new catheter placed. 2. Volume overload. receiving extra treatment today. 3. Acute on chronic systolic CHF with ejection fraction of 40% with moderate pulmonary hypertension. 4. Diabetes mellitus. 5. Volume overload. 6. Hyperkalemia secondary to chronic kidney disease and losartan. Improved with medical management. 7. Anemia of chronic kidney disease. Plan: hemodialysis today. Patient can be discharged from nephrology standpoint after hemodialysis.
== END 2023-12-17 19:15 | disposition home or self-care (01) | DRG 919 ==
LOC: EC 14:30 → 4SSUR 15:52 → OBSVTOIN 15:52 → 4SSUR 17:28
PROVIDERS: ADMIT Student in an Organized Health Care Education/Training Program; ATTEND Student in an Organized Health Care Education/Training Program
DX: T85.621A Displacement of intraperitoneal dialysis catheter, initial encounter (principal); I50.23 Acute on chronic systolic (congestive) heart failure; N18.6 End stage renal disease; I13.2 Hypertensive heart and chronic kidney disease with heart failure and with stage 5 chronic kidney disease, or end stage renal disease; E87.1 Hypo-osmolality and hyponatremia; Z96.41 Presence of insulin pump (external) (internal); I27.20 Pulmonary hypertension, unspecified; E87.5 Hyperkalemia; D63.1 Anemia in chronic kidney disease; E11.621 Type 2 diabetes mellitus with foot ulcer; L97.519 Non-pressure chronic ulcer of other part of right foot with unspecified severity; E78.5 Hyperlipidemia, unspecified; E11.22 Type 2 diabetes mellitus with diabetic chronic kidney disease; Z91.041 Radiographic dye allergy status; Z99.2 Dependence on renal dialysis; Z87.891 Personal history of nicotine dependence; Z79.899 Other long term (current) drug therapy; Z79.82 Long term (current) use of aspirin; Z79.4 Long term (current) use of insulin
CPT/HCPCS: 36558; 71045; 76937; 77001; 80048; 80053; 82728; 83540; 83550; 83735; 83880; 84100; 84132; 85025; 85027; 85610; 90935; 93005; 99285

== ENCOUNTER 2024-02-09 13:52 | Inpatient (IN) | payer BC ==
--- NOTE | 2024-02-09 15:06 | ED ---
General Adult HPI - General Chief complaint: Weakness Stated complaint: Weakness Time Seen by Provider: 02/09/24 14:41 Source: patient Mode of arrival: wheelchair - History of Present Illness Initial comments: Dictation was produced using [employer] dictation software. please excuse any grammatical, word or spelling errors. Chief Complaint: 58-year-old ESRD patient presents to the ER for generalized weakness History of Present Illness: Patient 58-year-old male he gets dialysis Friday. He is on his way to his dialysis appointment but did not feel strong enough to go. States that he feels really weak. Thinks that he is fluid overloaded with some shortness of breath. Patient states that since being in the ER he feels slightly improved. Denies any fever, chills or night sweats. No abdominal pain. No headache. No cough runny nose or shortness of breath. The ROS documented in this emergency department record has been reviewed and confirmed by me. Those systems with pertinent positive or negative responses have been documented in the HPI. All other systems are other negative and/or noncontributory. - Related Data Home Medications Medication Instructions Recorded Confirmed Insulin Aspart (For Pump) [NovoLOG 0.01 unit SQ-PUMP CONTINUOUS 02/21/23 12/14/23 (For Pump)] FLUoxetine HCL [PROzac] 10 mg PO DAILY 07/14/23 12/14/23 carvediloL [Coreg] 25 mg PO BID 07/14/23 12/14/23 Atorvastatin [Lipitor] 20 mg PO DAILY 11/14/23 12/14/23 Folic Acid/Vit B Complex and C 0.8 mg PO DAILY 11/14/23 12/14/23 [Lilian-Marsha Tablet] HYDROcodone/APAP 5-325MG [[employer] 1 tab PO Q6H 11/14/23 12/14/23 5-325] Ondansetron Odt [Zofran ODT] 4 mg PO Q6H PRN 11/14/23 12/14/23 amLODIPine [Norvasc] 10 mg PO DAILY 11/14/23 12/14/23 hydrALAZINE HCL [Apresoline] 100 mg PO TID 11/14/23 12/14/23 Previous Rx's Medication Instructions Recorded Torsemide [Demadex] 40 mg PO DAILY #90 tab 11/17/23 Aspirin 81 mg PO DAILY 30 Days #30 tab 11/28/23 Isosorbide Mononitrate ER [Imdur] 30 mg PO DAILY 30 Days #30 tab 12/17/23 Allergies Allergy/AdvReac Type Severity Reaction Status Date / Time Iodinated Contrast Media Allergy Anaphylaxis Verified 02/09/24 14:19 Review of Systems ROS Statement: Those systems with pertinent positive or pertinent negative responses have been documented in the HPI. ROS Other: All systems not noted in ROS Statement are negative. Past Medical History Past Medical History: Diabetes Mellitus, Dialysis, Hyperlipidemia, Hypertension, Renal Disease Additional Past Medical History / Comment(s): IDDM type I on insulin pump, DKA, chronic kidney disease, bilateral lower extremity edema. peritoneal dialysis History of Any Multi-Drug Resistant Organisms: None Reported Past Surgical History: No Surgical Hx Reported Additional Past Surgical History / Comment(s): R knee arthroscopy, circumcism, HD cath in chest Past Anesthesia/Blood Transfusion Reactions: No Reported Reaction Past Psychological History: No Psychological Hx Reported Smoking Status: Former smoker Past Alcohol Use History: None Reported Past Drug Use History: None Reported - Past Family History Mother History Unknown: Yes Family Medical History: COPD Father Family Medical History: No Reported History Additional Family Medical History / Comment(s): Mother is healthy. General Exam - General Exam Comments Initial Comments: PHYSICAL EXAM: General Impression: Alert and oriented x3, not in acute distress HEENT: Normocephalic atraumatic, extra-ocular movements intact, pupils equal and reactive to light bilaterally, mucous membranes moist. Cardiovascular: Heart regular rate and rhythm Chest: Able to complete full sentences, no retractions, no tachypnea Abdomen: abdomen soft, non-tender, non-distended, no organomegaly Musculoskeletal: Pulses present and equal in all extremities, no peripheral edema Motor: no focal deficits noted Neurological: CN II-XII grossly intact, no focal motor or sensory deficits noted Skin: Intact with no visualized rashes Psych: Normal affect and mood Course Vital Signs 02/09/24 14:14 Temperature 97.4 F L Pulse Rate 55 L Respiratory 18 Rate Blood Pressure 137/65 O2 Sat by Pulse 92 L Oximetry - Reevaluation(s) Reevaluation #1: 02/09/24 16:[address] Shaffer at 4:05 PM. She is informed that patient had already received hyperkalemia cocktail. She asked us to contact dialysis nurse. I did ask our bilingual secretary at 4:08 PM to contact our dialysis nurse to arrange for stat hemodialysis. EKG Findings - EKG Comments: EKG Findings:: My EKG interpretation: Ventricular rate 56, bradycardia, CA interval 09/07/2009, QRS 146, QTc 469. No CA prolongation, no QTC prolongation, no ST or T-wave changes noted. EKG compared to previous EKGs from November showing some widening of the QRS concerning for hyperkalemia associated cardiac changes Medical Decision Making - Medical Decision Making Was pt. sent in by a medical professional or institution (, PA, LEAD ADVISOR, urgent care, hospital, or custodial...) When possible be specific @ -No Did you speak to anyone other than the patient for history (EMS, parent, family, police, friend...)? What history was obtained from this source @ -No Did you review nursing and triage notes (agree or disagree)? Why? @ -I reviewed and agree with nursing and triage notes Were old charts reviewed (outside hosp., previous admission, EMS record, old EKG, old radiological studies, urgent care reports/EKG's, custodial records)? Report findings @ -No old charts were reviewed Differential Diagnosis (chest pain, altered mental status, abdominal pain women, abdominal pain men, vaginal bleeding, musculoskeletal, weakness, fever, dyspnea, syncope, headache, dizziness, GI bleed, back pain, seizure, CVA, palpatations, mental health)? @ -Differential Weakness: Hypoglycemia, shock, sepsis, hyponatremia, anemia, infection, CT, ETOH, adverse medicine reaction, overdose, stroke, this is not meant to be an all-inclusive list. EKG interpreted by me (3pts min.). @ -See above X-rays interpreted by me (1pt min.). @ -Pending CT interpreted by me (1pt min.). @ -None done U/S interpreted by me (1pt. min.). @ -None done What testing was considered but not performed or refused? (CT, X-rays, U/S, labs)? Why? @ -None What meds were considered but not given or refused? Why? @ -None Was smoking cessation discussed for >3mins.? @ -No Were there social determinants of health that impacted care today? How? (Homelessness, low income, unemployed, alcoholism, drug addiction, transportation, low edu. Level, literacy, decrease access to med. care, fci, rehab)? @ -No Was there de-escalation of care discussed even if they declined (Discuss DNR or withdrawal of care, Hospice)? DNR status @ -No What co-morbidities impacted this encounter? (DM, HTN, Smoking, COPD, CAD, Cancer, CVA, ARF, Chemo, Hep., AIDS, mental health diagnosis, sleep apnea, morbid obesity)? @ -None Was patient admitted / discharged? Hospital course, mention meds given and route, prescriptions, significant lab abnormalities, going to OR and other pertinent info. @ -58-year-old ESRD patient gets dialysis Friday presents to the emergency department for acute weakness. Vital signs are stable. Patient in no acute distress at the bedside. Laboratory evaluation obtained. CBC is within acceptable limits. Metabolic panel shows potassium 8.2 with elevated renal function. Viral testing is negative. Chest x-ray shows some evidence of fluid overload. Patient given hyperkalemia cocktail. Patient will need stat dialysis. Did you discuss the management of the patient with other professionals (professionals i.e. , PA, LEAD ADVISOR, lab, RT, psych nurse, social media analyst, sewing machine operator zipper, teacher, staff nuclear weapons officer, manager case)? Give summary @ -Yes see above. Case also discussed with hospitalist for admission. Was critical care preformed (if so, how long)? @ -Yes, 33 minutes Undiagnosed new problem with uncertain prognosis? @ -No Drug Therapy requiring intensive monitoring for toxicity (Heparin, Nitro, Insulin, Cardizem)? @ -No Were any procedures done? @ -No Diagnosis/symptom? @ -Hyperkalemia Acute, or Chronic, or Acute on Chronic? @ -Default Uncomplicated (without systemic symptoms) or Complicated (systemic symptoms)? @ -Default Side effects of treatment? @ -None Exacerbation, Progression, or Severe Exacerbation] @ -No Poses a threat to life or bodily function? @ -yes - Lab Data Result diagrams: 02/09/24 14:59 02/09/24 14:59 Lab Results 02/09/24 02/09/24 02/09/24 Range/Units 14:56 14:59 14:59 WBC 5.1 (3.8-10.6) k/uL RBC 2.72 L (4.30-5.90) m/uL Hgb 8.4 L (13.0-17.5) gm/dL Hct 26.5 L (39.0-53.0) % MCV 97.3 D (80.0-100.0) fL MCH 30.9 (25.0-35.0) pg MCHC 31.7 (31.0-37.0) g/dL RDW 16.9 H (11.5-15.5) % Plt Count 257 (150-450) k/uL MPV 7.8 Neutrophils % 64 % Lymphocytes % 12 % Monocytes % 6 % Eosinophils % 16 % Basophils % 1 % Neutrophils # 3.2 (1.3-7.7) k/uL Lymphocytes # 0.6 L (1.0-4.8) k/uL Monocytes # 0.3 (0-1.0) k/uL Eosinophils # 0.8 H (0-0.7) k/uL Basophils # 0.0 (0-0.2) k/uL Hypochromasia Slight Anisocytosis Slight Macrocytosis Slight Sodium 132 L (137-145) mmol/L Potassium 8.2 H* (3.5-5.1) mmol/L Chloride 100 (98-107) mmol/L Carbon Dioxide 20 L (22-30) mmol/L Anion Gap 12 mmol/L BUN 105 H* (9-20) mg/dL Creatinine 8.11 H* (0.66-1.25) mg/dL Est GFR (CKD-EPI)AfAm 8 (>60 ml/min/1.73 sqM) Est GFR (CKD-EPI)NonAf 7 (>60 ml/min/1.73 sqM) Glucose 88 (74-99) mg/dL Calcium 8.4 (8.4-10.2) mg/dL Total Bilirubin 0.7 (0.2-1.3) mg/dL AST 41 (17-59) U/L ALT 42 (4-49) U/L Alkaline Phosphatase 206 H (38-126) U/L Total Protein 6.2 L (6.3-8.2) g/dL Albumin 3.4 L (3.5-5.0) g/dL Influenza Type A (PCR) Not Detected (Not Detectd) Influenza Type B (PCR) Not Detected (Not Detectd) RSV (PCR) Not Detected (Not Detectd) SARS-CoV-2 (PCR) Not Detected (Not Detectd) Disposition Clinical Impression: Hyperkalemia Disposition: ADMITTED IP TO THIS HOSP Condition: Serious Referrals: Devon Mattson MD [Primary Care Provider] - 1-2 days Decision Time: 16:09
[2024-02-09 15:34] LABS: Anisocytosis Slight; Basophils % (A) 1 %; Eosinophils # (A) 0.8 k/uL (0-0.7); Eosinophils % (A) 16 %; HCT 26.5 % (39.0-53.0); HGB 8.4 gm/dL (13.0-17.5); Hypochromasia Slight; Lymphocytes # (A) 0.6 k/uL (1.0-4.8); Lymphocytes % (A) 12 %; MCH 30.9 pg (25.0-35.0); MCHC 31.7 g/dL (31.0-37.0); Macrocytosis Slight; Mean Platelet Volume 7.8; Monocytes # (A) 0.3 k/uL (0-1.0); Monocytes % (A) 6 %; Neutrophils # (A) 3.2 k/uL (1.3-7.7); Neutrophils % (A) 64 %; Platelet Count 257 k/uL (150-450); RBC 2.72 m/uL (4.30-5.90); RDW 16.9 % (11.5-15.5); WBC 5.1 k/uL (3.8-10.6)
[2024-02-09 15:43] LABS: MCV 97.3 fL (80.0-100.0)
[2024-02-09 15:50] LABS: ALT 42 U/L (4-49); AST 41 U/L (17-59); African American GFR (CKD) 8 (>60 ml/min/1.73 sqM); Albumin 3.4 g/dL (3.5-5.0); Alkaline Phosphatase 206 U/L (38-126); Anion Gap 12 mmol/L; Calcium 8.4 mg/dL (8.4-10.2); Carbon Dioxide 20 mmol/L (22-30); Chloride 100 mmol/L (98-107); Glucose 88 mg/dL (74-99); Non-African American GFR(CKD) 7 (>60 ml/min/1.73 sqM); Sodium 132 mmol/L (137-145); Total Bilirubin 0.7 mg/dL (0.2-1.3); Total Protein 6.2 g/dL (6.3-8.2)
[2024-02-09 15:52] LABS: Blood Urea Nitrogen 105 mg/dL (9-20); Potassium 8.2 mmol/L (3.5-5.1)
[2024-02-09] MEDS ORDERED: NALOXONE 0.4 MG/ML 1 ML VIAL IV PRN (16:07)
--- NOTE | 2024-02-09 16:14 | XR ---
EXAMINATION TYPE: XR chest 2V DATE OF EXAM: 02/09/2024 COMPARISON: 12/15/2023 HISTORY: Shortness of breath TECHNIQUE: Frontal and lateral views of the chest are obtained. FINDINGS: There is a dialysis catheter tip of which is in the SVC/RA junction. It is unchanged in position. There is been interval increase in the pulmonary vascular congestion and small bilateral pleural effu sions. There is cardiomegaly. There is no pneumothorax. The osseous structures are intact IMPRESSION: Interval development of acute cardiopulmonary disease consistent with pulmonary edema an d small bilateral lateral pleural effusions.
[2024-02-09] MEDS: DEXTROSE 50% SYRINGE 50 ML IVP ONE (16:27)
[2024-02-09] MEDS: SODIUM ZIRCONIUM CYCLOSILICATE 10 GM PACKET PO ONE (16:29)
[2024-02-09] MEDS: SODIUM BICARB 8.4% 50 ML SYR (1 MEQ/ML) IV ONE (16:29)
[2024-02-09] MEDS: INSULIN REGULAR 100 UNIT/ML VIAL (IV) IV ONE (16:29)
[2024-02-09] MEDS: CALCIUM GLUCONATE IN NACL 1 GM in SALINE 1 100ML.BAG IVPB ONE (16:30)
[2024-02-09] MEDS: SODIUM CHLORIDE 0.9% 1,000 ML IV SCH (16:32)
[2024-02-09] MEDS: SODIUM BICARBONATE TAB 650 MG TAB PO SCH (16:40)
[2024-02-09] MEDS: ALBUTEROL NEB (CONC) 2.5 MG/0.5 ML INHALATION ONE (16:52)
[2024-02-09] MEDS ORDERED: ONDANSETRON ODT 4 MG TAB PO PRN (17:00)
[2024-02-09] MEDS ORDERED: DEXTROSE 50% SYRINGE 50 ML IVP PRN (17:01)
[2024-02-09] MEDS ORDERED: ACETAMINOPHEN TAB 325 MG TAB PO PRN (17:02)
[2024-02-09 17:12] LABS: Glucose,Whole Blood 100 mg/dL (70-110)
[2024-02-09] MEDS: INSULIN ASPART (NovoLOG) 100 UNIT/ML VIAL SQ SCH (17:14)
--- NOTE | 2024-02-09 17:34 | P.HPIM ---
History of Present Illness H&P Date: 02/09/24 HPI: 58-year-old male with a past medical history of ESRD (MWF), hypertension,, hyperlipidemia, and type 2 diabetes presented to the ED with complaints of weakness and some shortness of breath. Patient reports he was on his way to dialysis today when he started feeling weak and not strong enough to go. At that time patient reports feeling that he may have been, "carrying too much fluid on him." At that time patient felt it was best to come to the emergency department. Upon arrival in the ED patient admitted to weakness and shortness of breath but denied fever, chills, night sweats, abdominal pain, headache, cough, runny nose, and/or shortness of breath. Patient reports that usually he feels some weakness between his Friday and Friday dialysis, but today was worse than usual. Patient reports he still makes urine 2-3 times a day, but does not urinate much when he does have to go. In the ED patient's vitals were within normal limits with the exception of O2 saturation 92 on room air and pulse rate 55. Patient received labs in the ED pertinent for sodium 132, potassium 8.2, BUN 105, creatinine 8.11, alkaline phosphatase 206, and albumin 3.4. Patient also received an EKG independently interpreted which showed sinus bradycardia with first-degree AV block, and MI segment prolongation 206 ms. CXR independently interpreted in the ED revealed interval development of acute cardiopulmonary disease consistent with pulmonary edema and small bilateral pleural effusions. Patient admitted for significant metabolic derangements including hyperkalemia. Nephrology consulted. Pertinent positives and negatives discussed above, a complete review of systems was preformed and all the other sytems were negative. Vitals Signs Reviewed. General: non toxic, no distress, appears at stated age, normal weight Derm: no unusual rashes/lesions, warm, right lower extremity wound wrapped in gauze with a soft cast around it. Head: atraumatic, normocephalic, symmetric Eyes: EOMI, no lid lag, anicteric sclera, pupils equal round reactive to light ENT: Nose and ears atraumatic Neck: No cervical lymphadenopathy, trachea midline, supple Mouth: no lip lesion, mucus membranes moist Cardiovascular: S1S2 reg, no murmur, positive dorsalis pedis pulse bilateral, no edema Lungs: Decreased air entry bilaterally, no rhonchi, no rales, no accessory muscle use Abdominal: soft, nontender to palpation, no guarding Ext: muscle strength 5 out of 5 in all 4 extremities grossly, no gross muscle atrophy, no contractures, Neuro: CN II-XI grossly intact, no gross focal neuro deficits Psych: Alert, oriented, appropriate affect Assesment and Plan: 58-year-old male with a past medical history of ESRD (MWF), hypertension,, hyperlipidemia, and type 2 diabetes presented to the ED with complaints of weakness and some shortness of breath. Patient admitted for further workup of multiple metabolic derangements and immediate need for dialysis. ESRD on hemodialysis (MWF) Hyperkalemia Missed dialysis Metabolic acidosis Anemia of chronic kidney disease Hypervolemia sinus bradycardia All likely secondary to missing dialysis today (last dialysis received Monday 02/05) Received albuterol nebulized 10 mg inhalation, calcium gluconate 1 g IVPB, dextrose 50% syringe, and insulin regular 10 units IV, lokelma 10 gm all once upon arrival to the ED Patient currently taking sodium bicarbonate tabs 650 mg p.o. 3 times daily Dialysis scheduled as soon as possible today in the ED, nephrology aware and consulted Will repeat potassium check this evening and adjust treatment accordingly. Hemoglobin 8.4, potassium 8.2, sodium 132, bicarb 20, and creatinine 8.11. Monitor label tacker CBC and CMP tomorrow (02/09) -Hold carvedilol -Continue torsemide 100 mg daily Diabetes mellitus type 2, on insulin pump Started on insulin sliding scale here, monitor for hypoglycemia - consider restarting home insulin pump tomorrow Bruised left rib: Patient had mechanical fall 2 weeks ago, went to urgent care had a negative x- ray and received a muscle relaxant at that time Patient now rates the pain as a 3 out of 4, will give acetaminophen 650 mg p.o. every 6 hours are as needed -Consider topical analgesics if still has pain Chronic: Hyperlipidemia: Continued home Lipitor 20 mg p.o. daily Hypertension: Restarted home amlodipine 10 mg, hydralazine 100 mg 3 times a day, Imdur 30 mg daily, holding carvedilol Chronic right lower extremity wound secondary to chronic swelling: Receives wound care at outpatient, will continue wound care inpatient. Most recent visit from wound care outpatient, nurse said that the wound was healing well. F KVO E Replete as needed N renal diet A normally ambulates at home unassisted DVT ppx: SQ heparin Code Status: Full code Anticipated discharge place: To home Anticipated discharge time: Pending clinical course, if labs return to baseline tomorrow potential discharge. I have seen and evaluated the patient today. Discussed with the resident and agree with resident's findings and plan as documented in the resident's note. Changes highlighted in blue font. Past Medical History Past Medical History: Diabetes Mellitus, Dialysis, Hyperlipidemia, Hypertension, Renal Disease Additional Past Medical History / Comment(s): IDDM type I on insulin pump, DKA, chronic kidney disease, bilateral lower extremity edema. peritoneal dialysis History of Any Multi-Drug Resistant Organisms: None Reported Past Surgical History: No Surgical Hx Reported Additional Past Surgical History / Comment(s): R knee arthroscopy, circumcism, HD cath in chest Past Anesthesia/Blood Transfusion Reactions: No Reported Reaction Past Psychological History: No Psychological Hx Reported Smoking Status: Former smoker Past Alcohol Use History: None Reported Past Drug Use History: None Reported - Past Family History Mother History Unknown: Yes Family Medical History: COPD Father Family Medical History: No Reported History Additional Family Medical History / Comment(s): Mother is healthy. Medications and Allergies Home Medications Medication Instructions Recorded Confirmed Type Insulin Aspart (For Pump) [NovoLOG 0.01 unit SQ-PUMP CONTINUOUS 02/21/23 02/09/24 History (For Pump)] FLUoxetine HCL [PROzac] 10 mg PO DAILY 07/14/23 02/09/24 History carvediloL [Coreg] 25 mg PO BID 07/14/23 02/09/24 History Atorvastatin [Lipitor] 20 mg PO DAILY 11/14/23 02/09/24 History Folic Acid/Vit B Complex and C 0.8 mg PO DAILY 11/14/23 02/09/24 History [Lilian-Marsha Tablet] Ondansetron Odt [Zofran ODT] 4 mg PO Q6H PRN 11/14/23 02/09/24 History amLODIPine [Norvasc] 10 mg PO DAILY 11/14/23 02/09/24 History hydrALAZINE HCL [Apresoline] 100 mg PO TID 11/14/23 02/09/24 History Aspirin 81 mg PO DAILY 30 Days #30 tab 11/28/23 02/09/24 Rx Isosorbide Mononitrate ER [Imdur] 30 mg PO DAILY 30 Days #30 tab 12/17/23 02/09/24 Rx Torsemide [Demadex] 100 mg PO DAILY 02/09/24 02/09/24 History Allergies Allergy/AdvReac Type Severity Reaction Status Date / Time Iodinated Contrast Media Allergy Anaphylaxis Verified 02/09/24 16:13 Physical Exam Vitals: Vital Signs Temp Pulse Resp BP Pulse Ox 02/09/24 14:14 97.4 F L 55 L 18 137/65 92 L Intake and Output 02/09/24 02/09/24 02/09/24 06:59 14:59 22:59 Other: Weight 90.718 kg Results CBC & Chem 7: 02/09/24 14:59 02/09/24 14:59 Labs: Abnormal Lab Results - Last 24 Hours (Table) 02/09/24 02/09/24 Range/Units 14:59 14:59 RBC 2.72 L (4.30-5.90) m/uL Hgb 8.4 L (13.0-17.5) gm/dL Hct 26.5 L (39.0-53.0) % RDW 16.9 H (11.5-15.5) % Lymphocytes # 0.6 L (1.0-4.8) k/uL Eosinophils # 0.8 H (0-0.7) k/uL Sodium 132 L (137-145) mmol/L Potassium 8.2 H* (3.5-5.1) mmol/L Carbon Dioxide 20 L (22-30) mmol/L BUN 105 H* (9-20) mg/dL Creatinine 8.11 H* (0.66-1.25) mg/dL Alkaline Phosphatase 206 H (38-126) U/L Total Protein 6.2 L (6.3-8.2) g/dL Albumin 3.4 L (3.5-5.0) g/dL
[2024-02-09 20:06] LABS: Glucose,Whole Blood 157 mg/dL (70-110)
[2024-02-09 20:50] LABS: Glucose,Whole Blood 208 mg/dL (70-110)
[2024-02-09] MEDS: hydrALAZINE HCL 50 MG TAB PO SCH (21:40)
[2024-02-10] MEDS: HEPARIN SODIUM,PORCINE 5,000 UNIT/ML 1 ML VIAL SQ SCH (00:08)
[2024-02-10 03:07] LABS: Hepatitis B Surface Antigen Nonreactive (Nonreactive)
[2024-02-10 03:58] LABS: Hepatitis B Surface AB- Quant 3.5 mIU/mL
[2024-02-10 05:47] LABS: Glucose,Whole Blood 455 mg/dL (70-110)
[2024-02-10 07:29] LABS: Anisocytosis Slight; Basophils % (A) 1 %; Eosinophils # (A) 0.6 k/uL (0-0.7); Eosinophils % (A) 12 %; HCT 25.7 % (39.0-53.0); HGB 8.1 gm/dL (13.0-17.5); Hypochromasia Marked; Lymphocytes # (A) 0.5 k/uL (1.0-4.8); Lymphocytes % (A) 10 %; MCH 31.3 pg (25.0-35.0); MCHC 31.3 g/dL (31.0-37.0); MCV 99.8 fL (80.0-100.0); Macrocytosis Slight; Mean Platelet Volume 8.2; Monocytes # (A) 0.3 k/uL (0-1.0); Monocytes % (A) 5 %; Neutrophils # (A) 3.4 k/uL (1.3-7.7); Neutrophils % (A) 72 %; Platelet Count 239 k/uL (150-450); RBC 2.58 m/uL (4.30-5.90); RDW 16.8 % (11.5-15.5); WBC 4.7 k/uL (3.8-10.6)
[2024-02-10 07:54] LABS: ALT 42 U/L (4-49); AST 40 U/L (17-59); African American GFR (CKD) 9 (>60 ml/min/1.73 sqM); Albumin 3.1 g/dL (3.5-5.0); Alkaline Phosphatase 210 U/L (38-126); Anion Gap 14 mmol/L; Blood Urea Nitrogen 72 mg/dL (9-20); Calcium 8.2 mg/dL (8.4-10.2); Carbon Dioxide 20 mmol/L (22-30); Chloride 97 mmol/L (98-107); Glucose 433 mg/dL (74-99); Non-African American GFR(CKD) 8 (>60 ml/min/1.73 sqM); Sodium 131 mmol/L (137-145); Total Bilirubin 0.5 mg/dL (0.2-1.3); Total Protein 5.9 g/dL (6.3-8.2)
[2024-02-10 08:29] LABS: Potassium 6.9 mmol/L (3.5-5.1)
[2024-02-10] MEDS: TORSEMIDE 100 MG PO SCH (09:05)
[2024-02-10] MEDS: ASPIRIN 81 MG PO SCH (09:13)
[2024-02-10] MEDS: ISOSORBIDE MONONITRATE ER 30 MG TAB.ER.24H PO SCH (09:13)
[2024-02-10] MEDS: amLODIPine 10 MG TAB PO SCH (09:13)
[2024-02-10] MEDS: FLUoxetine HCL 10 MG CAP PO SCH (09:13)
[2024-02-10] MEDS: ATORVASTATIN 20 MG TAB PO SCH (09:13)
[2024-02-10] MEDS: INSULIN REGULAR 100 UNIT/ML VIAL (IV) IV ONE (09:14)
[2024-02-10] MEDS: CALCIUM GLUCONATE IN NACL 1 GM in SALINE 1 100ML.BAG IVPB ONE (09:14)
[2024-02-10] MEDS: DEXTROSE 50% SYRINGE 50 ML IVP ONE (09:14)
[2024-02-10] MEDS: SODIUM BICARB 8.4% 50 ML SYR (1 MEQ/ML) IV ONE (09:15)
[2024-02-10] MEDS: ALBUTEROL NEB (CONC) 2.5 MG/0.5 ML INHALATION ONE (09:55)
--- NOTE | 2024-02-10 10:25 | P.PN ---
Subjective Progress Note Date: 02/10/24 Subjective: Patient seen at bedside. No significant overnight events. Patient reports left rib pain was tolerable overnight. Pertinent positives and negatives discussed above, a complete review of systems was preformed and all the other sytems were negative. Vitals Signs Reveiwed. General: non toxic, no distress, appears at stated age, normal weight Derm: no unusual rashes/lesions, warm, right lower extremity wound wrapped in gauze with a soft cast around it. Head: atraumatic, normocephalic, symmetric Eyes: EOMI, no lid lag, anicteric sclera, pupils equal round reactive to light ENT: Nose and ears atraumatic Neck: No cervical lymphadenopathy, trachea midline, supple Mouth: no lip lesion, mucus membranes moist Cardiovascular: S1S2 reg, no murmur, positive dorsalis pedis pulse bilateral, no edema Lungs: Decreased air entry bilaterally, no rhonchi, no rales, no accessory muscle use Abdominal: soft, nontender to palpation, no guarding Ext: muscle strength 5 out of 5 in all 4 extremities grossly, no gross muscle atrophy, no contractures, Neuro: CN II-XI grossly intact, no gross focal neuro deficits Psych: Alert, oriented, appropriate affect Data Reveiwed Today: Patient Labs: Hemoglobin 8.1, sodium 131, potassium 6.9, BUN 72, creatinine 6.9, glucose 433, and calcium 8.2 Imaging: Pending EKG from today. Assesment and Plan: 58-year-old male with a past medical history of ESRD (MWF), hypertension,, hyperlipidemia, and type 2 diabetes presented to the ED with complaints of weakness and some shortness of breath. Patient admitted for further workup of m ultiple metabolic derangements and immediate need for dialysis. ESRD on hemodialysis (MWF) Hyperkalemia Missed dialysis Metabolic acidosis Anemia of chronic kidney disease Hypervolemia sinus bradycardia All likely secondary to missing dialysis today (last dialysis received Monday 02/05) Patient currently taking sodium bicarbonate tabs 650 mg p.o. 3 times daily Nephrology aware and consulted, patient received dialysis in ED yesterday, patient will receive additional dialysis today. Potassium 6.9 this morning, was given dextrose 50% syringe 50 mL IVP once, sodium bicarb 50 mL IV once, albuterol nebulized 10 mg inhalation once, calcium gluconate 1 g IV once, and Humulin R 10 units IV once. Will repeat potassium check at noon. Hemoglobin 8.1, sodium 131, potassium 6.9, BUN 72, creatinine 6.9, glucose 433, and calcium 8.2 Monitor telemetry -Hold carvedilol -Continue torsemide 100 mg daily Continue to monitor hemoglobin, patient is close to baseline. Follow-up on new EKG results Diabetes mellitus type 2, on insulin pump Started on insulin sliding scale here, monitor for hypoglycemia - consider restarting home insulin pump tomorrow Bruised left rib: Patient had mechanical fall 2 weeks ago, went to urgent care had a negative x- ray and received a muscle relaxant at that time Patient now rates the pain as a 3 out of 4, will give acetaminophen 650 mg p.o. every 6 hours are as needed -Consider topical analgesics if still has pain Chronic: Hyperlipidemia: Continued home Lipitor 20 mg p.o. daily Hypertension: Restarted home amlodipine 10 mg, hydralazine 100 mg 3 times a day, Imdur 30 mg daily, holding carvedilol Chronic right lower extremity wound secondary to chronic swelling: Receives wound care at outpatient, will continue wound care inpatient. Most recent visit from wound care on Friday outpatient, nurse said that the wound was healing well. Normally receives wound care Friday, and if patient is here tomorrow he will receive wound care. F KVO E Replete as needed N renal diet A normally ambulates at home unassisted DVT ppx: SQ heparin Code Status: Full code Anticipated discharge place: To home Anticipated discharge time: Pending clinical course, if labs return to baseline tomorrow potential discharge. I have seen and evaluated the patient today. Discussed with the resident and agree with the residents subjective and objective as documented in the resident's note. The assessment and plan was discussed and outlined as below. No complaints. This AM K is 6.9. Ca gluconate, IV insulin, Albuterol neb ordered along with STAT EKG. EKG shows no peaked T waves. Plans for HD today. ESRD on hemodialysis (MWF): Nephrology consulted for emergent HD. Hyperkalemia: Due to missed HD session. Underwent HD last night. Ca gluconate, IV insulin, Albuterol neb ordered along with STAT EKG for AM K of 6.9. EKG shows no peaked T waves. Telemetry monitoring. Metabolic acidosis: Hopeful improvement with HD. Sodium bicarbonate 650 mg PO TID. Anemia of chronic kidney disease: Hg at baseline. No signs of active bleeding. Transfuse if Hg < 7. Diabetes mellitus type 2: On insulin pump. ISS. Accuchecks ACHS. Hypoglycemic precautions. Hypertension: Hydralazine 100 mg PO TID. Imdur 30 mg PO QD. Torsemide 100 mg PO QD. Restart Coreg 25 mg PO BID as bradycardia resolved. Left rib pain: Mechanical fall 2 weeks ago. Tylenol 650 mg PO Q6H PRN. Consider rib XR. Hyperlipidemia: Lipitor 20 mg PO QD. Chronic right lower extremity wound secondary to chronic swelling: Follows wound care outpatient. Consult wound care. Objective - Vital Signs Vital signs: Vital Signs Temp 98.0 F 02/10/24 04:00 Pulse 76 02/10/24 04:00 Resp 18 02/10/24 04:00 BP 179/82 02/10/24 04:00 Pulse Ox 97 02/10/24 00:00 FiO2 Intake & Output 02/09/24 02/10/24 02/10/24 18:59 06:59 18:59 Intake Total 400 Output Total 4400 Balance -4000 Weight 90.718 kg 92.9 kg Intake: Hemodialysis 400 Output: Urine 0 Hemodialysis 2400 Hemodialysis Net Amount 2000 - Labs CBC & Chem 7: 02/10/24 05:38 02/10/24 05:38 Labs: Abnormal Lab Results - Last 24 Hours (Table) 02/09/24 02/09/24 02/09/24 Range/Units 14:59 14:59 20:04 RBC 2.72 L (4.30-5.90) m/uL Hgb 8.4 L (13.0-17.5) gm/dL Hct 26.5 L (39.0-53.0) % RDW 16.9 H (11.5-15.5) % Lymphocytes # 0.6 L (1.0-4.8) k/uL Eosinophils # 0.8 H (0-0.7) k/uL Sodium 132 L (137-145) mmol/L Potassium 8.2 H* (3.5-5.1) mmol/L Carbon Dioxide 20 L (22-30) mmol/L BUN 105 H* (9-20) mg/dL Creatinine 8.11 H* (0.66-1.25) mg/dL POC Glucose (mg/dL) 157 H (70-110) mg/dL Alkaline Phosphatase 206 H (38-126) U/L Total Protein 6.2 L (6.3-8.2) g/dL Albumin 3.4 L (3.5-5.0) g/dL 02/09/24 02/09/24 02/10/24 Range/Units 20:18 20:48 05:43 RBC (4.30-5.90) m/uL Hgb (13.0-17.5) gm/dL Hct (39.0-53.0) % RDW (11.5-15.5) % Lymphocytes # (1.0-4.8) k/uL Eosinophils # (0-0.7) k/uL Sodium (137-145) mmol/L Potassium 7.6 H* (3.5-5.1) mmol/L Carbon Dioxide (22-30) mmol/L BUN (9-20) mg/dL Creatinine (0.66-1.25) mg/dL POC Glucose (mg/dL) 208 H 455 H (70-110) mg/dL Alkaline Phosphatase (38-126) U/L Total Protein (6.3-8.2) g/dL Albumin (3.5-5.0) g/dL
--- NOTE | 2024-02-10 10:26 | P.CONS ---
History of Present Illness - Reason for Consult Consult date: 02/10/24 wound care - History of Present Illness This is a 58-year-old patient known to the wound care center being seen on 3 S. for management of chronic nonhealing ulcerations. Patient currently has a total contact cast on the right foot for a plantar lateral foot ulceration being treated with absorptive silver. Patient had a new ulceration found last week to the left medial foot and left anterior lower extremity. Original cause of wound was Gradually Appeared. The date acquired was: 11/07/2023. The wound has been in treatment 5 weeks. The wound is currently classified as a Grade 2 wound with etiology of Diabetic Wound/Ulcer of the Lower Extremity and is located on the Right,Lateral Foot. The wound measures 0.9cm length x 0.9cm width x 0.1cm depth; 0.636cm^2 area and 0.064cm^3 volume. There is no tunneling or undermining noted. There is a medium amount of serosanguineous drainage noted. The wound margin is distinct with the outline attached to the wound base. There is large (67-100%) pink granulation within the wound bed. There is a small (1-33%) amount of necrotic tissue within the wound bed. The periwound skin appearance exhibited: Callus, Maceration. The periwound skin appearance did not exhibit: Crepitus, Exc oriation, Induration, Rash, Scarring, Dry/Scaly, Atrophie Karen, Cyanosis, Ecchymosis, Hemosiderin Staining, Mottled, Pallor, Rubor, Erythema. Periwound temperature was noted as No Abnormality. Wound #3 status is Open. Original cause of wound was Gradually Appeared. The date acquired was: 01/26/2024. The wound has been in treatment 1 weeks. The wound is currently classified as a Grade 2 wound with etiology of Diabetic Wound/Ulcer of the Lower Extremity and is located on the Left,Medial Foot. The wound measures 1.8cm length x 1.7cm width x 0.1cm depth; 2.403cm^2 area and 0.24cm^3 volume. There is Fat Layer (Subcutaneous Tissue) exposed. There is no tunneling or undermining noted. There is a medium amount of serosanguineous drainage noted. The wound margin is well defined and not attached to the wound base. There is small (1-33%) pink granulation within the wound bed. There is a large (67-100%) amount of necrotic tissue within the wound bed. The periwound skin appearance exhibited: Erythema. The periwound skin appearance did not exhibit: Callus, Crepitus, Excoriation, Induration, Rash, Scarring, Dry/Scaly, Maceration, Atrophie Karen, Cyanosis, Ecchymosis, Hemosiderin Staining, Mot tled, Pallor, Rubor. The surrounding wound skin color is noted with erythema which is circumferential. Periwound temperature was noted as No Abnormality. Wound #4 status is Open. Original cause of wound was Gradually Appeared. The date acquired was: 02/02/2024. The wound is currently classified as a Grade 1 wound with etiology of Diabetic Wound/Ulcer of the Lower Extremity and is located on the Left,Anterior Lower Leg. The wound measures 2.9cm length x 1.1cm width x 0.1cm depth; 2.505cm^2 area and 0.251cm^3 volume. There is no tunneling or undermining noted. There is a medium amount of purulent drainage noted. The wound margin is distinct with the outline attached to the wound base. There is small (1-33%) granulation within the wound bed. There is a small (1-33%) amount of necrotic tissue within the wound bed including Adherent Slough. The periwound skin appearance had no abnormalities noted for texture. The periwound skin appearance had no abnormalities noted for moisture. The periwound skin appearance had no abnormalities noted for color. Periwound temperature was noted as No Abnormality. Review Of Systems: Constitutional: No fever, no chills, no night sweats. No weight change. No weakness, fatigue or lethargy. No daytime sleepiness. Integumentary:reports wounds, no lesions. No rash or pruritus. No unusual bruising. No change in hair or nails. Physical exam: General Appearance: Alert, cooperative, no distress, appears stated age. Skin: See HPI all other Skin color, texture, tugor normal, no rashes or lesions. Neurologic: Alert oriented x3 Assessment: 1.Nonpressure chronic ulcer of other part of right foot with fat layer exposure 2. Nonpressure chronic ulcer of other part of left foot with fat layer exposure 3. Nonpressure chronic ulcer of other part of left lower leg with fat layer exposure 4. Diabetic foot ulcer Plan: 1. Keep the total cast on the right lower extremity. If patient is still hospitalized next Friday please call the wound care center for the cast to be removed. 2. Apply honey gel to the anterior left lower extremity and the left medial foot and a bordered foam to cover. Change Friday. Patient will return to the wound care center next Friday if he is discharged. Thank you for the consultation any questions please contact the wound care center DNP note has been reviewed and discussed with Dr. Garcia and the impression and plan of care has been directed as dictated. Past Medical History Past Medical History: Diabetes Mellitus, Dialysis, Hyperlipidemia, Hypertension, Renal Disease Additional Past Medical History / Comment(s): IDDM type I on insulin pump, DKA, chronic kidney disease, bilateral lower extremity edema. peritoneal dialysis History of Any Multi-Drug Resistant Organisms: None Reported Past Surgical History: No Surgical Hx Reported Additional Past Surgical History / Comment(s): R knee arthroscopy, circumcism, HD cath in chest Past Anesthesia/Blood Transfusion Reactions: No Reported Reaction Past Psychological History: No Psychological Hx Reported Additional Psychological History / Comment(s): Pt resides with his spouse. He is independent. Smoking Status: Former smoker Past Alcohol Use History: None Reported Additional Past Alcohol Use History / Comment(s): Pt started smoking in 1985 andd quit 07/25/20 Past Drug Use History: None Reported Additional Drug Use History / Comment(s): Rare MJ use - Past Family History Mother History Unknown: Yes Family Medical History: COPD Father Family Medical History: No Reported History Additional Family Medical History / Comment(s): Mother is healthy. Medications and Allergies Home Medications Medication Instructions Recorded Confirmed Type Insulin Aspart (For Pump) [NovoLOG 0.01 unit SQ-PUMP CONTINUOUS 02/21/23 02/09/24 History (For Pump)] FLUoxetine HCL [PROzac] 10 mg PO DAILY 07/14/23 02/09/24 History carvediloL [Coreg] 25 mg PO BID 07/14/23 02/09/24 History Atorvastatin [Lipitor] 20 mg PO DAILY 11/14/23 02/09/24 History Folic Acid/Vit B Complex and C 0.8 mg PO DAILY 11/14/23 02/09/24 History [Lilian-Marsha Tablet] Ondansetron Odt [Zofran ODT] 4 mg PO Q6H PRN 11/14/23 02/09/24 History amLODIPine [Norvasc] 10 mg PO DAILY 11/14/23 02/09/24 History hydrALAZINE HCL [Apresoline] 100 mg PO TID 11/14/23 02/09/24 History Aspirin 81 mg PO DAILY 30 Days #30 tab 11/28/23 02/09/24 Rx Isosorbide Mononitrate ER [Imdur] 30 mg PO DAILY 30 Days #30 tab 12/17/23 02/09/24 Rx Torsemide [Demadex] 100 mg PO DAILY 02/09/24 02/09/24 History Allergies Allergy/AdvReac Type Severity Reaction Status Date / Time Iodinated Contrast Media Allergy Anaphylaxis Verified 02/09/24 16:13 Physical Exam Vitals: Vital Signs Temp Pulse Pulse Pulse Resp BP BP 02/10/24 09:56 76 02/10/24 04:00 98.0 F 76 18 179/82 02/10/24 02:00 71 74 17 02/10/24 01:00 97.5 F L 74 17 149/71 02/10/24 00:00 71 16 167/73 02/09/24 21:40 67 20 02/09/24 21:15 97.7 F 64 16 154/73 02/09/24 21:03 97.7 F 65 16 154/73 02/09/24 18:58 97.9 F 62 16 146/71 02/09/24 17:54 16 02/09/24 17:13 58 L 02/09/24 17:01 59 L 14 140/76 02/09/24 16:52 59 L 02/09/24 14:14 97.4 F L 55 L 18 137/65 Pulse Ox 02/10/24 09:56 02/10/24 04:00 02/10/24 02:00 02/10/24 01:00 02/10/24 00:00 97 02/09/24 21:40 02/09/24 21:15 96 02/09/24 21:03 98 02/09/24 18:58 97 02/09/24 17:54 02/09/24 17:13 02/09/24 17:01 98 02/09/24 16:52 02/09/24 14:14 92 L Intake and Output 02/09/24 02/10/24 02/10/24 22:59 06:59 14:59 Intake Total 400 118 Output Total 4400 Balance -4000 118 Intake: Oral 118 Hemodialysis 400 Output: Urine 0 Hemodialysis 2400 Hemodialysis Net Amount 2000 Other: Weight 90.718 kg 92.9 kg Results CBC & Chem 7: 02/10/24 05:38 02/10/24 05:38 Labs: Abnormal Lab Results - Last 24 Hours (Table) 02/09/24 02/09/24 02/09/24 Range/Units 14:59 14:59 20:04 RBC 2.72 L (4.30-5.90) m/uL Hgb 8.4 L (13.0-17.5) gm/dL Hct 26.5 L (39.0-53.0) % RDW 16.9 H (11.5-15.5) % Lymphocytes # 0.6 L (1.0-4.8) k/uL Eosinophils # 0.8 H (0-0.7) k/uL Sodium 132 L (137-145) mmol/L Potassium 8.2 H* (3.5-5.1) mmol/L Chloride (98-107) mmol/L Carbon Dioxide 20 L (22-30) mmol/L BUN 105 H* (9-20) mg/dL Creatinine 8.11 H* (0.66-1.25) mg/dL Glucose (74-99) mg/dL POC Glucose (mg/dL) 157 H (70-110) mg/dL Calcium (8.4-10.2) mg/dL Alkaline Phosphatase 206 H (38-126) U/L Total Protein 6.2 L (6.3-8.2) g/dL Albumin 3.4 L (3.5-5.0) g/dL 02/09/24 02/09/24 02/10/24 Range/Units 20:18 20:48 05:38 RBC 2.58 L (4.30-5.90) m/uL Hgb 8.1 L (13.0-17.5) gm/dL Hct 25.7 L (39.0-53.0) % RDW 16.8 H (11.5-15.5) % Lymphocytes # 0.5 L (1.0-4.8) k/uL Eosinophils # (0-0.7) k/uL Sodium (137-145) mmol/L Potassium 7.6 H* (3.5-5.1) mmol/L Chloride (98-107) mmol/L Carbon Dioxide (22-30) mmol/L BUN (9-20) mg/dL Creatinine (0.66-1.25) mg/dL Glucose (74-99) mg/dL POC Glucose (mg/dL) 208 H (70-110) mg/dL Calcium (8.4-10.2) mg/dL Alkaline Phosphatase (38-126) U/L Total Protein (6.3-8.2) g/dL Albumin (3.5-5.0) g/dL 02/10/24 02/10/24 Range/Units 05:38 05:43 RBC (4.30-5.90) m/uL Hgb (13.0-17.5) gm/dL Hct (39.0-53.0) % RDW (11.5-15.5) % Lymphocytes # (1.0-4.8) k/uL Eosinophils # (0-0.7) k/uL Sodium 131 L (137-145) mmol/L Potassium 6.9 H* (3.5-5.1) mmol/L Chloride 97 L (98-107) mmol/L Carbon Dioxide 20 L (22-30) mmol/L BUN 72 H (9-20) mg/dL Creatinine 6.90 H (0.66-1.25) mg/dL Glucose 433 H (74-99) mg/dL POC Glucose (mg/dL) 455 H (70-110) mg/dL Calcium 8.2 L (8.4-10.2) mg/dL Alkaline Phosphatase 210 H (38-126) U/L Total Protein 5.9 L (6.3-8.2) g/dL Albumin 3.1 L (3.5-5.0) g/dL Assessment and Plan (1) Non-pressure chronic ulcer of other part of right foot with fat layer exposed Current Visit: Yes Status: Acute Code(s): L97.512 - NON-PRS CHRONIC ULCER OTH PRT RIGHT FOOT W FAT LAYER EXPOSED SNOMED Code(s): 52446264210628836 (2) Non-pressure chronic ulcer of other part of left foot with fat layer exposed Current Visit: Yes Status: Acute Code(s): L97.522 - NON-PRS CHRONIC ULCER OTH PRT LEFT FOOT W FAT LAYER EXPOSED SNOMED Code(s): 14192890750664705 (3) Non-pressure chronic ulcer of other part of left lower leg with fat layer exposed Current Visit: Yes Status: Acute Code(s): L97.822 - NON-PRS CHRONIC ULCER OTH PRT L LOW LEG W FAT LAYER EXPOSED SNOMED Code(s): 58962073351277755 (4) Type 2 diabetes mellitus with foot ulcer Current Visit: Yes Status: Acute Code(s): E11.621 - TYPE 2 DIABETES MELLITUS WITH FOOT ULCER; L97.509 - NON-PRESSURE CHRONIC ULCER OTH PRT UNSP FOOT W UNSP SEVERITY SNOMED Code(s): 4278361716535
[2024-02-10] MEDS: DARBEPOETIN ALFA 60 MCG/0.3 ML SYRINGE SQ SCH (11:30)
[2024-02-10 11:39] LABS: Glucose,Whole Blood 290 mg/dL (70-110)
--- NOTE | 2024-02-10 12:44 | P.NPCON ---
History of Present Illness - Reason for Consult Consult date: 02/10/24 - History of Present Illness Patient is a 58-year-old male is being consulted for hyperkalemia. He has a history of end-stage renal disease on hemodialysis Friday, Friday, and Friday and diabetes. He was brought to the ED on his way to his dialysis appointment yesterday due to feeling weak and fluid overloaded with some shortness of breath. His creatinine on admission was 8.11 and potassium was 8.2. After receiving dialysis yesterday they have both improved to 6.9. Today, patient states he is feeling better after receiving dialysis yesterday. He endorses making a little bit of urine. Patient denied missing any out patient treatments. Admits to increased intake of high potassium containing foods Past Medical History Past Medical History: Diabetes Mellitus, Dialysis, Hyperlipidemia, Hypertension, Renal Disease Additional Past Medical History / Comment(s): IDDM type I on insulin pump, DKA, chronic kidney disease, bilateral lower extremity edema. peritoneal dialysis History of Any Multi-Drug Resistant Organisms: None Reported Past Surgical History: No Surgical Hx Reported Additional Past Surgical History / Comment(s): R knee arthroscopy, circumcism, HD cath in chest Past Anesthesia/Blood Transfusion Reactions: No Reported Reaction Past Psychological History: No Psychological Hx Reported Additional Psychological History / Comment(s): Pt resides with his spouse. He is independent. Smoking Status: Former smoker Past Alcohol Use History: None Reported Additional Past Alcohol Use History / Comment(s): Pt started smoking in 1985 andd quit 07/25/20 Past Drug Use History: None Reported Additional Drug Use History / Comment(s): Rare MJ use - Past Family History Mother History Unknown: Yes Family Medical History: COPD Father Family Medical History: No Reported History Additional Family Medical History / Comment(s): Mother is healthy. Medications and Allergies Home Medications Medication Instructions Recorded Confirmed Type Insulin Aspart (For Pump) [NovoLOG 0.01 unit SQ-PUMP CONTINUOUS 02/21/23 02/09/24 History (For Pump)] FLUoxetine HCL [PROzac] 10 mg PO DAILY 07/14/23 02/09/24 History carvediloL [Coreg] 25 mg PO BID 07/14/23 02/09/24 History Atorvastatin [Lipitor] 20 mg PO DAILY 11/14/23 02/09/24 History Folic Acid/Vit B Complex and C 0.8 mg PO DAILY 11/14/23 02/09/24 History [Lilian-Marsha Tablet] Ondansetron Odt [Zofran ODT] 4 mg PO Q6H PRN 11/14/23 02/09/24 History amLODIPine [Norvasc] 10 mg PO DAILY 11/14/23 02/09/24 History hydrALAZINE HCL [Apresoline] 100 mg PO TID 11/14/23 02/09/24 History Aspirin 81 mg PO DAILY 30 Days #30 tab 11/28/23 02/09/24 Rx Isosorbide Mononitrate ER [Imdur] 30 mg PO DAILY 30 Days #30 tab 12/17/23 0 02/09/24 Rx Torsemide [Demadex] 100 mg PO DAILY 02/09/24 02/09/24 History Allergies Allergy/AdvReac Type Severity Reaction Status Date / Time Iodinated Contrast Media Allergy Anaphylaxis Verified 02/09/24 16:13 Physical Exam Vitals: Vital Signs Temp Pulse Pulse Pulse Resp BP BP 02/10/24 04:00 98.0 F 76 18 179/82 02/10/24 02:00 71 74 17 02/10/24 01:00 97.5 F L 74 17 149/71 02/10/24 00:00 71 16 167/73 02/09/24 21:40 67 20 02/09/24 21:15 97.7 F 64 16 154/73 02/09/24 21:03 97.7 F 65 16 154/73 02/09/24 18:58 97.9 F 62 16 146/71 02/09/24 17:54 16 02/09/24 17:13 58 L 02/09/24 17:01 59 L 14 140/76 02/09/24 16:52 59 L 02/09/24 14:14 97.4 F L 55 L 18 137/65 Pulse Ox 02/10/24 04:00 02/10/24 02:00 02/10/24 01:00 02/10/24 00:00 97 02/09/24 21:40 02/09/24 21:15 96 02/09/24 21:03 98 02/09/24 18:58 97 02/09/24 17:54 02/09/24 17:13 02/09/24 17:01 98 02/09/24 16:52 02/09/24 14:14 92 L Intake and Output 02/09/24 02/10/24 02/10/24 22:59 06:59 14:59 Intake Total 400 Output Total 4400 Balance -4000 Intake: Hemodialysis 400 Output: Urine 0 Hemodialysis 2400 Hemodialysis Net Amount 2000 Other: Weight 90.718 kg 92.9 kg Vital signs are stable. General: No acute distress. HEENT: Head exam is unremarkable. Lungs: Bilateral breath sounds present; no rhonchi, wheezes, or rales. Heart: Rate and rhythm are regular. Abdomen: Soft, nontender. Extremities: No edema present; right lower extremity wound wrapped in gauze with a walking boot on. Results - Lab Results Most recent lab results Calcium 8.2 mg/dL (8.4-10.2) L 02/10/24 05:38 02/11/24 07:28 02/11/24 07:28 Assessment and Plan Assessment: 1. End-stage renal disease on hemodialysis Friday, Friday, and Friday with permacath. 2. Hyperkalemia. Possibly related to dietary noncompliance. Patient states he has been compliant with dialysis treatments. Potassium 8.11 on admission6.9 after dialysis. 3. Hyperglycemia. Blood sugar noted to be 455, which will exacerbate hyperkalemia. 4. Hypervolemic hyponatremia. 5. Fluid overload. 6. CKD mineral bone disease. 7. Anemia chronic kidney disease. Hemoglobin 8.4. Add Aranesp. Rule out iron deficiency. 8. Hypertension. Uncontrolled, volume sensitive. Expect improvement with improving volume status. Plan: Repeat hemodialysis today. Increase UF as tolerated to about 3L. Status post 2L UF yesterday. Add Aranesp. Check iron profile. Check phosphorous. Continue torsemide 100 mg daily. Control blood sugars. Continue to monitor renal function. Continue home blood pressure medications. Discussed importance of dietary compliance with low-salt, fluid restriction, and potassium containing foods. Thank you for the consultation. We will continue to monitor him during his hospital stay. Agree with resident's findings assessment and plan.
[2024-02-10 16:31] LABS: Phosphorus 4.7 mg/dL (2.5-4.5); Potassium 4.6 mmol/L (3.5-5.1)
[2024-02-10 16:36] LABS: Glucose,Whole Blood 266 mg/dL (70-110)
[2024-02-10 19:49] LABS: Glucose,Whole Blood 238 mg/dL (70-110)
[2024-02-10] MEDS: carvediloL 12.5 MG TAB PO SCH (21:04)
[2024-02-11 02:41] LABS: % Iron Saturation 13.9 (15.00-50.00)
[2024-02-11 05:55] LABS: Glucose,Whole Blood 347 mg/dL (70-110)
[2024-02-11 07:42] LABS: Anisocytosis Slight; HCT 24.6 % (39.0-53.0); HGB 7.7 gm/dL (13.0-17.5); Hypochromasia Marked; MCH 31.1 pg (25.0-35.0); MCHC 31.4 g/dL (31.0-37.0); MCV 98.9 fL (80.0-100.0); Macrocytosis Slight; Mean Platelet Volume 8.1; Platelet Count 222 k/uL (150-450); RBC 2.49 m/uL (4.30-5.90); RDW 16.7 % (11.5-15.5); WBC 4.4 k/uL (3.8-10.6)
[2024-02-11 07:53] LABS: African American GFR (CKD) 14 (>60 ml/min/1.73 sqM); Anion Gap 8 mmol/L; Blood Urea Nitrogen 49 mg/dL (9-20); Carbon Dioxide 27 mmol/L (22-30); Chloride 98 mmol/L (98-107); Glucose 318 mg/dL (74-99); Non-African American GFR(CKD) 12 (>60 ml/min/1.73 sqM); Sodium 133 mmol/L (137-145)
[2024-02-11 11:05] LABS: Glucose,Whole Blood 385 mg/dL (70-110)
--- NOTE | 2024-02-11 11:48 | P.DS ---
Providers Date of admission: 02/09/24 16:07 Expected date of discharge: 02/11/24 Attending physician: Suman Gaviria MD Consults: 02/09/24 15:57 Consult Physician Routine Consulting Provider: Sheba Shaffer Consult Reason/Comments: Hyperkalemia Do you want consulting provider notified?: Yes Primary care physician: [facility] Course: 58 year old M with PMH of ESRD on HD MWF, HTN, HLD, DM presented to the ED with complaints of shortness of breath and weakness. He reports missing a session of dialysis. In the ED he underwent extensive evaluation. BP 137/65, HR 55, T 97.4, RR 18, 92% on RA. CBC, CMP significant for RBC 2.72, Hg 8.4, Hct 26.5, Na 132, K 7.6, bicarb 20, BUN 105, Cr 8.11, glu 208, alk phos 206, alb 3.4. COVID/RSV/Flu negative. Hep panel negative. CXR consistent with pulmonary edema and bilateral pleural effusion. EKG with sinus bradycardia with first degree AV block. Patient was admitted for significant metabolic derangements with Nephrology consult. He was given hyperkalemia cocktail (insulin IV, Lokelma, Albuterol neb, Ca gluconate) which was repeated once again. He underwent emergent hemodialysis on admission and on day 2. Electrolyte derangements resolved. 02/10 Patient was seen and examined. Breathing improved. Plans for HD this afternoon. Patient can likely be discharged after his dialysis session. CBC RBC 2.49, Hg 7.7, Hct 24.6. BMP Na 133, BUN 49, Cr 5.03, Ca 8.0. POC glucose 266-385 over the past 24H requring 36 units of Novolog. I have started Novolog 10 units TID and Levemir 30 units QHS. Hyperglycemia expected to resolve after starting home insulin pump. General: non toxic, no distress, appears at stated age Derm: warm, dry Head: atraumatic, normocephalic, symmetric Eyes: EOMI, no lid lag, anicteric sclera Mouth: no lip lesion, mucus membranes moist Cardiovascular: S1S2 buck, no murmur Lungs: CTA bilateral, no rhonchi, no rales , no accessory muscle use Ext: no gross muscle atrophy, no edema, no contractures, right lower extremity wound wrapped in gauze with a soft cast around it. Neuro: no focal neuro deficits Psych: Alert, oriented, appropriate affect Discharge Diagnosis: ESRD on hemodialysis (MWF): Resume HD on MWF schedule. Anemia of chronic kidney disease: Hg at baseline. No signs of active bleeding. Diabetes mellitus type 2 with hyperglycemia: Resume insulin pump on discharge. Hypertension: Hydralazine 100 mg PO TID. Imdur 30 mg PO QD. Torsemide 100 mg PO QD. Holding Coreg due to sinus bradycardia. Left rib pain: Mechanical fall 2 weeks ago. Tylenol 650 mg PO Q6H PRN. Hyperlipidemia: Lipitor 20 mg PO QD. Chronic right lower extremity wound secondary to chronic swelling: Follow up with wound care outpatient. Resolved: Hyperkalemia, Metabolic acidosis This complex discharge took 35 minutes to complete. Patient Condition at Discharge: Stable Plan - Discharge Summary Discharge Rx Participant: No New Discharge Prescriptions: No Action Insulin Aspart (For Pump) [NovoLOG (For Pump)] 0.01 unit SQ-PUMP CONTINUOUS carvediloL [Coreg] 25 mg PO BID FLUoxetine HCL [PROzac] 10 mg PO DAILY Atorvastatin [Lipitor] 20 mg PO DAILY Folic Acid/Vit B Complex and C [Lilian-Marsha Tablet] 0.8 mg PO DAILY Aspirin 81 mg PO DAILY 30 Days #30 tab Torsemide [Demadex] 100 mg PO DAILY hydrALAZINE HCL [Apresoline] 100 mg PO TID amLODIPine [Norvasc] 10 mg PO DAILY Ondansetron Odt [Zofran ODT] 4 mg PO Q6H PRN PRN Reason: Nausea And Vomiting Isosorbide Mononitrate ER [Imdur] 30 mg PO DAILY 30 Days #30 tab Discharge Medication List Insulin Aspart (For Pump) [NovoLOG (For Pump)] 0.01 unit SQ-PUMP CONTINUOUS 02/21/23 [History] FLUoxetine HCL [PROzac] 10 mg PO DAILY 07/14/23 [History] carvediloL [Coreg] 25 mg PO BID 07/14/23 [History] Atorvastatin [Lipitor] 20 mg PO DAILY 11/14/23 [History] Folic Acid/Vit B Complex and C [Lilian-Marsha Tablet] 0.8 mg PO DAILY 11/14/23 [History] Ondansetron Odt [Zofran ODT] 4 mg PO Q6H PRN 11/14/23 [History] amLODIPine [Norvasc] 10 mg PO DAILY 11/14/23 [History] hydrALAZINE HCL [Apresoline] 100 mg PO TID 11/14/23 [History] Aspirin 81 mg PO DAILY 30 Days #30 tab 11/28/23 [Rx] Isosorbide Mononitrate ER [Imdur] 30 mg PO DAILY 30 Days #30 tab 12/17/23 [Rx] Torsemide [Demadex] 100 mg PO DAILY 02/09/24 [History] Follow up Appointment(s)/Referral(s): Devon Mattson MD [Primary Care Provider] - 1-2 days
--- NOTE | 2024-02-11 12:16 | P.PN ---
Subjective patient is seen for follow-up for end-stage renal disease. He was admitted with hypervolemia and hyperkalemia. Volume status has improved with improvement in potassium as well. Patient is scheduled for hemodialysis today. Objective - Vital Signs Vital signs: Vital Signs Temp 98.0 F 02/11/24 07:09 Pulse 65 02/11/24 11:09 Resp 16 02/11/24 11:01 BP 176/78 02/11/24 07:09 Pulse Ox 92 L 02/11/24 11:09 FiO2 Intake & Output 02/10/24 02/11/24 02/11/24 18:59 06:59 18:59 Intake Total 754 Output Total 6400 Balance -5646 Weight 91.9 kg Intake: Oral 354 Hemodialysis 400 Output: Hemodialysis 3400 Hemodialysis Net Amount 3000 Other: # Voids 1 1 - Exam patient is awake, comfortable, no acute distress. Improved edema TOWEL FOLDER exam is grossly intact. alert oriented 3. - Labs CBC & Chem 7: 02/11/24 07:28 02/11/24 07:28 Labs: Abnormal Lab Results - Last 24 Hours (Table) 02/10/24 02/10/24 02/10/24 Range/Units 15:15 16:35 19:47 RBC (4.30-5.90) m/uL Hgb (13.0-17.5) gm/dL Hct (39.0-53.0) % RDW (11.5-15.5) % Sodium (137-145) mmol/L BUN (9-20) mg/dL Creatinine (0.66-1.25) mg/dL Glucose (74-99) mg/dL POC Glucose (mg/dL) 266 H 238 H (70-110) mg/dL Calcium (8.4-10.2) mg/dL Phosphorus 4.7 H (2.5-4.5) mg/dL Iron 31 L (65-175) UG/DL TIBC 223 L (228-460) UG/DL % Saturation 13.90 L (15.00-50.00) Transferrin 159.0 L (204.0-354.0) mg/dL 02/11/24 02/11/24 02/11/24 Range/Units 05:53 07:28 07:28 RBC 2.49 L (4.30-5.90) m/uL Hgb 7.7 L (13.0-17.5) gm/dL Hct 24.6 L (39.0-53.0) % RDW 16.7 H (11.5-15.5) % Sodium 133 L (137-145) mmol/L BUN 49 H (9-20) mg/dL Creatinine 5.03 H (0.66-1.25) mg/dL Glucose 318 H (74-99) mg/dL POC Glucose (mg/dL) 347 H (70-110) mg/dL Calcium 8.0 L (8.4-10.2) mg/dL Phosphorus (2.5-4.5) mg/dL Iron (65-175) UG/DL TIBC (228-460) UG/DL % Saturation (15.00-50.00) Transferrin (204.0-354.0) mg/dL 02/11/24 Range/Units 11:03 RBC (4.30-5.90) m/uL Hgb (13.0-17.5) gm/dL Hct (39.0-53.0) % RDW (11.5-15.5) % Sodium (137-145) mmol/L BUN (9-20) mg/dL Creatinine (0.66-1.25) mg/dL Glucose (74-99) mg/dL POC Glucose (mg/dL) 385 H (70-110) mg/dL Calcium (8.4-10.2) mg/dL Phosphorus (2.5-4.5) mg/dL Iron (65-175) UG/DL TIBC (228-460) UG/DL % Saturation (15.00-50.00) Transferrin (204.0-354.0) mg/dL Assessment and Plan Assessment: 1. End-stage renal disease on hemodialysis Friday, Friday, and Friday with permacath. 2. Hyperkalemia. Possibly related to dietary noncompliance. Patient states he has been compliant with dialysis treatments. Potassium 8.11 on admission6.9 after dialysis. 3. Hyperglycemia. Blood sugar noted to be 455, which will exacerbate hyperkalemia. 4. Hypervolemic hyponatremia. 5. Fluid overload. 6. CKD mineral bone disease. 7. Anemia chronic kidney disease. Hemoglobin 8.4. Add Aranesp. Iron deficiency noted and will be given 1 dose of IV iron. 8. Hypertension. Uncontrolled, volume sensitive. Expect improvement with improving volume status. Plan: hemodialysis today. IV iron 1 Continue current antihypertensive regimen. DC sodium bicarb as acidosis has improved with hemodialysis. This is also causing sodium load with elevated blood pressures.
[2024-02-11] MEDS: INSULIN ASPART (NovoLOG) 100 UNIT/ML VIAL SQ SCH (12:24)
[2024-02-11 15:58] VITALS: BMI 25.9
[2024-02-11 16:06] LABS: Glucose,Whole Blood 258 mg/dL (70-110)
[2024-02-11 20:17] LABS: Glucose,Whole Blood 64 mg/dL (70-110)
[2024-02-11] MEDS: INSULIN DETEMIR (LEVEMIR) 100 UNIT/ML SYR SQ SCH (20:20)
[2024-02-11] MEDS: MELATONIN 5 MG TABLET PO SCH (20:49)
[2024-02-11 20:51] LABS: Glucose,Whole Blood 98 mg/dL (70-110)
[2024-02-11 22:01] LABS: Glucose,Whole Blood 123 mg/dL (70-110)
[2024-02-11 23:30] LABS: Glucose,Whole Blood 201 mg/dL (70-110)
[2024-02-12 06:09] LABS: Glucose,Whole Blood 365 mg/dL (70-110)
[2024-02-12] MEDS: ISOSORBIDE MONONITRATE ER 60 MG TAB.ER.24H PO SCH (08:29)
[2024-02-12 11:16] LABS: Glucose,Whole Blood 251 mg/dL (70-110)
--- NOTE | 2024-02-12 13:27 | P.DS ---
Providers Date of admission: 02/09/24 16:07 Expected date of discharge: 02/12/24 Attending physician: Suman Gaviria MD Consults: 02/09/24 15:57 Consult Physician Routine Consulting Provider: Sheba Shaffer Consult Reason/Comments: Hyperkalemia Do you want consulting provider notified?: Yes Primary care physician: [facility] Course: 58 year old M with PMH of ESRD on HD MWF, HTN, HLD, DM presented to the ED with complaints of shortness of breath and weakness. He reports missing a session of dialysis. In the ED he underwent extensive evaluation. BP 137/65, HR 55, T 97.4, RR 18, 92% on RA. CBC, CMP significant for RBC 2.72, Hg 8.4, Hct 26.5, Na 132, K 7.6, bicarb 20, BUN 105, Cr 8.11, glu 208, alk phos 206, alb 3.4. COVID/RSV/Flu negative. Hep panel negative. CXR consistent with pulmonary edema and bilateral pleural effusion. EKG with sinus bradycardia with first degree AV block. Patient was admitted for significant metabolic derangements with Nephrology consult. He was given hyperkalemia cocktail (insulin IV, Lokelma, Albuterol neb, Ca gluconate) which was repeated once again. He underwent emergent hemodialysis on admission and on day 2. Electrolyte derangements resolved. 02/10 Patient was seen and examined. Breathing improved. Plans for HD this afternoon. Patient can likely be discharged after his dialysis session. CBC RBC 2.49, Hg 7.7, Hct 24.6. BMP Na 133, BUN 49, Cr 5.03, Ca 8.0. POC glucose 266-385 over the past 24H requring 36 units of Novolog. I have started Novolog 10 units TID and Levemir 30 units QHS. Hyperglycemia expected to resolve after starting home insulin pump. 02/11 Patient was seen and examined. Discharge held yesterday due to persistently elevated BP. Imdur increased to 60 mg PO QD. Discussed with Dr. Shaffer, plans for HD today, start Midodrine 5 mg PO BID after HD if BP is not improved. Hopeful discharge later on today if BP is better. General: non toxic, no distress, appears at stated age Derm: warm, dry Head: atraumatic, normocephalic, symmetric Eyes: EOMI, no lid lag, anicteric sclera Mouth: no lip lesion, mucus membranes moist Cardiovascular: S1S2 reg, no murmur Lungs: CTA bilateral, no rhonchi, no rales , no accessory muscle use Ext: no gross muscle atrophy, no edema, no contractures, right lower extremity wound wrapped in gauze with a soft cast around it. Neuro: no focal neuro deficits Psych: Alert, oriented, appropriate affect Discharge Diagnosis: ESRD on hemodialysis (MWF): Resume HD on MWF schedule. Anemia of chronic kidney disease: Hg at baseline. No signs of active bleeding. Diabetes mellitus type 2 with hyperglycemia: Resume insulin pump on discharge. Hypertension: Hydralazine 100 mg PO TID. Imdur 60 mg PO QD. Torsemide 100 mg PO QD. Coreg 25 mg PO BID. Start Midodrine 5 mg PO BID if not improved after HD today. Left rib pain: Mechanical fall 2 weeks ago. Tylenol 650 mg PO Q6H PRN. Hyperlipidemia: Lipitor 20 mg PO QD. Chronic right lower extremity wound secondary to chronic swelling: Follow up with wound care outpatient. Resolved: Hyperkalemia, Metabolic acidosis This complex discharge took 35 minutes to complete. Patient Condition at Discharge: Stable Plan - Discharge Summary Discharge Rx Participant: No New Discharge Prescriptions: Continue Insulin Aspart (For Pump) [NovoLOG (For Pump)] 0.01 unit SQ-PUMP CONTINUOUS FLUoxetine HCL [PROzac] 10 mg PO DAILY Atorvastatin [Lipitor] 20 mg PO DAILY Folic Acid/Vit B Complex and C [Lilian-Marsha Tablet] 0.8 mg PO DAILY Aspirin 81 mg PO DAILY 30 Days #30 tab Torsemide [Demadex] 100 mg PO DAILY hydrALAZINE HCL [Apresoline] 100 mg PO TID amLODIPine [Norvasc] 10 mg PO DAILY Ondansetron Odt [Zofran ODT] 4 mg PO Q6H PRN PRN Reason: Nausea And Vomiting Isosorbide Mononitrate ER [Imdur] 30 mg PO DAILY 30 Days #30 tab Discontinued carvediloL [Coreg] 25 mg PO BID Discharge Medication List Insulin Aspart (For Pump) [NovoLOG (For Pump)] 0.01 unit SQ-PUMP CONTINUOUS 02/21/23 [History] FLUoxetine HCL [PROzac] 10 mg PO DAILY 07/14/23 [History] Atorvastatin [Lipitor] 20 mg PO DAILY 11/14/23 [History] Folic Acid/Vit B Complex and C [Lilian-Marsha Tablet] 0.8 mg PO DAILY 11/14/23 [History] Ondansetron Odt [Zofran ODT] 4 mg PO Q6H PRN 11/14/23 [History] amLODIPine [Norvasc] 10 mg PO DAILY 11/14/23 [History] hydrALAZINE HCL [Apresoline] 100 mg PO TID 11/14/23 [History] Aspirin 81 mg PO DAILY 30 Days #30 tab 11/28/23 [Rx] Isosorbide Mononitrate ER [Imdur] 30 mg PO DAILY 30 Days #30 tab 12/17/23 [Rx] Torsemide [Demadex] 100 mg PO DAILY 02/09/24 [History] Follow up Appointment(s)/Referral(s): Devon Mattson MD [Primary Care Provider] - 1-2 days (office not answering Please call to schedule appointment ) [facility] [NON-STAFF] - 02/16/24 8:15 am Juan Miguel Elliott DO [STAFF PHYSICIAN] - 1 Week (office not answering please call to schedule appointment) Activity/Diet/Wound Care/Special Instructions: Diet: Renal Discharge Disposition: HOME SELF-CARE
--- NOTE | 2024-02-12 13:48 | P.PN ---
Subjective Progress Note Date: 02/12/24 Patient is seen for follow-up for end-stage renal disease. He was admitted with hypervolemia and hyperkalemia. Volume status has improved. Potassium improved to 5.0. Creatinine improved to 5.03. Patient received dialysis yesterday - 3 L removed. Objective - Vital Signs Vital signs: Vital Signs Temp 97.3 F L 02/12/24 07:16 Pulse 67 02/12/24 07:16 Resp 18 02/12/24 07:16 BP 183/85 02/12/24 07:16 Pulse Ox 92 L 02/12/24 07:16 FiO2 Intake & Output 02/11/24 02/12/24 02/12/24 18:59 06:59 18:59 Intake Total 500 180 Output Total 6500 Balance -6000 180 Weight 91.9 kg 92 kg Intake: Oral 180 Hemodialysis 500 Output: Hemodialysis 3500 Hemodialysis Net Amount 3000 Other: # Voids 3 1 1 # Bowel Movements 1 - Exam Vital signs are stable. Blood pressure remains elevated. General: No acute distress. HEENT: Head exam is unremarkable. Lungs: Bilateral breath sounds present; no rhonchi, wheezes, or rales. Heart: Rate and rhythm are regular. Abdomen: Nontender. Extremities: Trace edema present; right lower extremity in gauze and walking boot. - Labs CBC & Chem 7: 02/11/24 07:28 02/11/24 07:28 Labs: Abnormal Lab Results - Last 24 Hours (Table) 02/11/24 02/11/24 02/11/24 Range/Units 11:03 16:04 20:16 POC Glucose (mg/dL) 385 H 258 H 64 L (70-110) mg/dL 02/11/24 02/11/24 02/12/24 Range/Units 22:00 23:29 06:08 POC Glucose (mg/dL) 123 H 201 H 365 H (70-110) mg/dL Assessment and Plan Assessment: 1. End-stage renal disease on hemodialysis Friday, Friday, and Friday with permacath. 2. Hyperkalemia. Possibly related to dietary noncompliance. Patient states he has been compliant with dialysis treatments. Potassium 8.11 on admissionimproving, now 5.0. 3. Hyperglycemia. Blood sugar noted to be 455, which will exacerbate hyperkalemia. 4. Hypervolemic hyponatremia. 5. Fluid overload. 6. CKD mineral bone disease. 7. Anemia chronic kidney disease. Hemoglobin 8.4. Add Aranesp. Iron deficiency noted - 1 dose of IV iron. 8. Hypertension. Uncontrolled, volume sensitive. Expect improvement with improving volume status. Plan: IV iron 1 dose. Continue current antihypertensive regimen. Repeat dialysis today. Patient is seen and examined. Agree with residents findings, assessment and plan.
[2024-02-12] MEDS: SODIUM FERRIC GLUCONAT-SUCROSE 125 MG in SODIUM CHLORIDE 0.9% 100 ML IVPB ONE (15:01)
[2024-02-12 16:49] LABS: Glucose,Whole Blood 146 mg/dL (70-110)
[2024-02-12] MEDS: hydrALAZINE HCL 50 MG TAB PO SCH (18:23)
[2024-02-12] MEDS: MIDODRINE 5 MG TAB PO SCH (18:57)
[2024-02-12 21:26] LABS: Glucose,Whole Blood 194 mg/dL (70-110)
[2024-02-13 02:50] LABS: Glucose,Whole Blood 47 mg/dL (70-110)
[2024-02-13 03:04] LABS: Glucose,Whole Blood 52 mg/dL (70-110)
[2024-02-13 03:23] LABS: Glucose,Whole Blood 70 mg/dL (70-110)
[2024-02-13 03:49] LABS: Glucose,Whole Blood 74 mg/dL (70-110)
[2024-02-13 04:30] LABS: Glucose,Whole Blood 57 mg/dL (70-110)
[2024-02-13 04:58] LABS: Glucose,Whole Blood 73 mg/dL (70-110)
[2024-02-13] MEDS: DEXTROSE 50% SYRINGE 50 ML IVP PRN (05:05)
[2024-02-13 05:48] LABS: Glucose,Whole Blood 113 mg/dL (70-110)
[2024-02-13 11:11] LABS: Glucose,Whole Blood 125 mg/dL (70-110)
--- NOTE | 2024-02-13 11:19 | P.DS ---
Providers Date of admission: 02/09/24 16:07 Expected date of discharge: 02/13/24 Attending physician: Suman Gaviria MD Consults: 02/09/24 15:57 Consult Physician Routine Consulting Provider: Sheba Shaffer Consult Reason/Comments: Hyperkalemia Do you want consulting provider notified?: Yes Primary care physician: [facility] Course: 58 year old M with PMH of ESRD on HD MWF, HTN, HLD, DM presented to the ED with complaints of shortness of breath and weakness. He reports missing a session of dialysis. In the ED he underwent extensive evaluation. BP 137/65, HR 55, T 97.4, RR 18, 92% on RA. CBC, CMP significant for RBC 2.72, Hg 8.4, Hct 26.5, Na 132, K 7.6, bicarb 20, BUN 105, Cr 8.11, glu 208, alk phos 206, alb 3.4. COVID/RSV/Flu negative. Hep panel negative. CXR consistent with pulmonary edema and bilateral pleural effusion. EKG with sinus bradycardia with first degree AV block. Patient was admitted for significant metabolic derangements with Nephrology consult. He was given hyperkalemia cocktail (insulin IV, Lokelma, Albuterol neb, Ca gluconate) which was repeated once again. He underwent emergent hemodialysis on admission and on day 2. Electrolyte derangements resolved. 02/10 Patient was seen and examined. Breathing improved. Plans for HD this afternoon. Patient can likely be discharged after his dialysis session. CBC RBC 2.49, Hg 7.7, Hct 24.6. BMP Na 133, BUN 49, Cr 5.03, Ca 8.0. POC glucose 266-385 over the past 24H requring 36 units of Novolog. I have started Novolog 10 units TID and Levemir 30 units QHS. Hyperglycemia expected to resolve after starting home insulin pump. 02/11 Patient was seen and examined. Discharge held yesterday due to persistently elevated BP. Imdur increased to 60 mg PO QD. Discussed with Dr. Shaffer, plans for HD today, start Midodrine 5 mg PO BID after HD if BP is not improved. 02/12 Patient was seen and examined. Underwent HD yesterday and today. Discharge held yesterday due to persistently elevated BP (SBP 180 after HD). Started on Midodrine with parameters. Hopeful discharge after HD today if BP is improved. General: non toxic, no distress, appears at stated age Derm: warm, dry Head: atraumatic, normocephalic, symmetric Eyes: EOMI, no lid lag, anicteric sclera Mouth: no lip lesion, mucus membranes moist Cardiovascular: S1S2 reg, no murmur Lungs: CTA bilateral, no rhonchi, no rales , no accessory muscle use Ext: no gross muscle atrophy, no edema, no contractures, right lower extremity wound wrapped in gauze with a soft cast around it. Neuro: no focal neuro deficits Psych: Alert, oriented, appropriate affect Discharge Diagnosis: ESRD on hemodialysis (MWF): Resume HD on MWF schedule. Anemia of chronic kidney disease: Hg at baseline. No signs of active bleeding. Diabetes mellitus type 2 with hyperglycemia: Resume insulin pump on discharge. Hypertension, uncontrolled: Hydralazine 100 mg PO TID. Imdur 60 mg PO QD. Torsemide 100 mg PO QD. Coreg 25 mg PO BID. Start Midodrine 5 mg PO BID PRN SBP > 140. Left rib pain: Mechanical fall 2 weeks ago. Tylenol 650 mg PO Q6H PRN. Hyperlipidemia: Lipitor 20 mg PO QD. Chronic right lower extremity wound secondary to chronic swelling: Follow up with wound care outpatient. Resolved: Hyperkalemia, Metabolic acidosis This complex discharge took 35 minutes to complete. Patient Condition at Discharge: Stable Plan - Discharge Summary Discharge Rx Participant: No New Discharge Prescriptions: New carvediloL [Coreg*] 25 mg PO BID tab Isosorbide Mononitrate ER [Imdur] 60 mg PO DAILY #30 tab Midodrine [ProAmatine] 5 mg PO AC-BID PRN #60 tab PRN Reason: Increased Blood Pressure Continue Insulin Aspart (For Pump) [NovoLOG (For Pump)] 0.01 unit SQ-PUMP CONTINUOUS FLUoxetine HCL [PROzac] 10 mg PO DAILY Atorvastatin [Lipitor] 20 mg PO DAILY Folic Acid/Vit B Complex and C [Lilian-Marsha Tablet] 0.8 mg PO DAILY Aspirin 81 mg PO DAILY 30 Days #30 tab Torsemide [Demadex] 100 mg PO DAILY hydrALAZINE HCL [Apresoline] 100 mg PO TID amLODIPine [Norvasc] 10 mg PO DAILY Ondansetron Odt [Zofran ODT] 4 mg PO Q6H PRN PRN Reason: Nausea And Vomiting Discontinued carvediloL [Coreg] 25 mg PO BID Isosorbide Mononitrate ER [Imdur] 30 mg PO DAILY 30 Days #30 tab Discharge Medication List Insulin Aspart (For Pump) [NovoLOG (For Pump)] 0.01 unit SQ-PUMP CONTINUOUS 02/21/23 [History] FLUoxetine HCL [PROzac] 10 mg PO DAILY 07/14/23 [History] Atorvastatin [Lipitor] 20 mg PO DAILY 11/14/23 [History] Folic Acid/Vit B Complex and C [Lilian-Marsha Tablet] 0.8 mg PO DAILY 11/14/23 [History] Ondansetron Odt [Zofran ODT] 4 mg PO Q6H PRN 11/14/23 [History] amLODIPine [Norvasc] 10 mg PO DAILY 11/14/23 [History] hydrALAZINE HCL [Apresoline] 100 mg PO TID 11/14/23 [History] Aspirin 81 mg PO DAILY 30 Days #30 tab 11/28/23 [Rx] Torsemide [Demadex] 100 mg PO DAILY 02/09/24 [History] Isosorbide Mononitrate ER [Imdur] 60 mg PO DAILY #30 tab 02/12/24 [Rx] Midodrine [ProAmatine] 5 mg PO AC-BID PRN #60 tab 02/12/24 [Rx] carvediloL [Coreg*] 25 mg PO BID tab 02/12/24 [Rx] Follow up Appointment(s)/Referral(s): Devon Mattson MD [Primary Care Provider] - 1-2 days (office not answering Please call to schedule appointment ) [facility] [NON-STAFF] - 02/16/24 8:15 am Juan Miguel Elliott DO [STAFF PHYSICIAN] - 1 Week (office not answering please call to schedule appointment) Activity/Diet/Wound Care/Special Instructions: Diet: Renal Discharge Disposition: HOME SELF-CARE
--- NOTE | 2024-02-13 14:40 | P.PN ---
Subjective Progress Note Date: 02/13/24 Patient is seen for follow-up for end-stage renal disease. He was admitted with hypervolemia and hyperkalemia. Volume status has improved. Potassium improved to 5.0. Creatinine improved to 5.03. Patient received dialysis yesterday - 3 L removed. Objective - Vital Signs Vital signs: Vital Signs Temp 97.3 F L 02/13/24 06:45 Pulse 60 02/13/24 06:45 Resp 18 02/13/24 06:45 BP 156/81 02/13/24 06:54 Pulse Ox 90 L 02/13/24 06:45 FiO2 Intake & Output 02/12/24 02/13/24 02/13/24 18:59 06:59 18:59 Intake Total 940 Output Total 6600 Balance -5660 Weight 70 kg Intake: Oral 540 Hemodialysis 400 Output: Hemodialysis 3500 Hemodialysis Net Amount 3100 Other: # Voids 1 - Exam Vital signs are stable. Blood pressure remains elevated. General: No acute distress. HEENT: Head exam is unremarkable. Lungs: Bilateral breath sounds present; no rhonchi, wheezes, or rales. Heart: Rate and rhythm are regular. Abdomen: Nontender. Extremities: Trace edema present; right lower extremity in gauze and walking boot. - Labs CBC & Chem 7: 02/11/24 07:28 02/11/24 07:28 Labs: Abnormal Lab Results - Last 24 Hours (Table) 02/12/24 02/12/24 02/12/24 Range/Units 11:11 16:46 21:25 POC Glucose (mg/dL) 251 H 146 H 194 H (70-110) mg/dL 02/13/24 02/13/24 02/13/24 Range/Units 02:45 03:03 04:28 POC Glucose (mg/dL) 47 L* 52 L 57 L (70-110) mg/dL 02/13/24 Range/Units 05:46 POC Glucose (mg/dL) 113 H (70-110) mg/dL Assessment and Plan Assessment: 1. End-stage renal disease on hemodialysis Friday, Friday, and Friday with permacath. 2. Hyperkalemia. Possibly related to dietary noncompliance. Patient states he has been compliant with dialysis treatments. Potassium 8.11 on admissionimproving, now 5.0. 3. Hyperglycemia. Blood sugar noted to be 455, which will exacerbate hyperkalemia. 4. Hypervolemic hyponatremia. 5. Fluid overload. 6. CKD mineral bone disease. 7. Anemia chronic kidney disease. Hemoglobin 8.4. Add Aranesp. Iron deficiency noted - 1 dose of IV iron. 8. Hypertension. Uncontrolled, volume sensitive. Expect improvement with improving volume status. Plan: Continue current antihypertensive regimen. Discontinue midodrine. Dialysis today. Agree with resident's findings, assessment and plan.
[2024-02-13 17:25] VITALS: BP 157/82; PULSE 62; RESP 16; TEMP 97.6
== END 2024-02-13 15:46 | disposition home or self-care (01) | DRG 640 ==
LOC: EC 13:52 → 3SCARD 16:07 → 4SSUR 02-11 01:29
PROVIDERS: ADMIT Student in an Organized Health Care Education/Training Program; ATTEND Student in an Organized Health Care Education/Training Program
DX: E87.70 Fluid overload, unspecified (principal); N18.6 End stage renal disease; I12.0 Hypertensive chronic kidney disease with stage 5 chronic kidney disease or end stage renal disease; J81.1 Chronic pulmonary edema; J90 Pleural effusion, not elsewhere classified; L97.822 Non-pressure chronic ulcer of other part of left lower leg with fat layer exposed; E87.1 Hypo-osmolality and hyponatremia; E87.20 Acidosis, unspecified; I44.0 Atrioventricular block, first degree; Z91.81 History of falling; R00.1 Bradycardia, unspecified; L97.512 Non-pressure chronic ulcer of other part of right foot with fat layer exposed; D50.9 Iron deficiency anemia, unspecified; L97.522 Non-pressure chronic ulcer of other part of left foot with fat layer exposed; E83.9 Disorder of mineral metabolism, unspecified; Z79.82 Long term (current) use of aspirin; Z99.2 Dependence on renal dialysis; Z79.4 Long term (current) use of insulin; E11.65 Type 2 diabetes mellitus with hyperglycemia; E11.622 Type 2 diabetes mellitus with other skin ulcer; D63.1 Anemia in chronic kidney disease; E11.22 Type 2 diabetes mellitus with diabetic chronic kidney disease; E11.621 Type 2 diabetes mellitus with foot ulcer; Z79.899 Other long term (current) drug therapy; Z87.891 Personal history of nicotine dependence; Z96.41 Presence of insulin pump (external) (internal); Z91.041 Radiographic dye allergy status; E78.5 Hyperlipidemia, unspecified; E87.5 Hyperkalemia; Z11.52 Encounter for screening for COVID-19; Z91.119 Patient's noncompliance with dietary regimen due to unspecified reason
CPT/HCPCS: 36415; 71046; 80048; 80053; 83036; 83540; 83550; 84100; 84132; 85025; 85027; 86704; 86706; 87340; 87636; 90935; 93005; 94640; 94760; 96374; 96375; 99291

== ENCOUNTER 2024-03-23 12:34 | Emergency (ER) | payer BC ==
--- NOTE | 2024-03-23 13:37 | ED ---
General Adult HPI - General Chief complaint: Shortness of Breath Stated complaint: SOB Time Seen by Provider: 03/23/24 13:00 Source: patient, RN notes reviewed, old records reviewed Mode of arrival: ambulatory Limitations: no limitations - History of Present Illness Initial comments: Is a 58-year-old male who presents to the emergency department complaining of feeling short of breath. Patient states he is a dialysis patient does have congestive heart failure on occasion. Patient states usually after dialysis he feels pretty good. Patient states over the weekend he was very short of breath but yesterday he had dialysis and felt good when he got home but last night he was having a difficult time sleeping but he is not sure if it is really short ness of breath or is he a little bit anxious about him not being able to breathe. Patient states he does have a little bit more edema to his legs. Patient also states that he is run out of his Lasix and he does not how long he has been out of it. Patient states he does have dialysis tomorrow. Patient Nuys any chest pain or palpitations. Patient Nuys any other complaints at this time - Related Data Home Medications Medication Instructions Recorded Confirmed Insulin Aspart (For Pump) [NovoLOG 0.01 unit SQ-PUMP CONTINUOUS 02/21/23 02/09/24 (For Pump)] FLUoxetine HCL [PROzac] 10 mg PO DAILY 07/14/23 02/09/24 Atorvastatin [Lipitor] 20 mg PO DAILY 11/14/23 02/09/24 Folic Acid/Vit B Complex and C 0.8 mg PO DAILY 11/14/23 02/09/24 [Lilian-Marsha Tablet] Ondansetron Odt [Zofran ODT] 4 mg PO Q6H PRN 11/14/23 02/09/24 amLODIPine [Norvasc] 10 mg PO DAILY 11/14/23 02/09/24 hydrALAZINE HCL [Apresoline] 100 mg PO TID 11/14/23 02/09/24 Torsemide [Demadex] 100 mg PO DAILY 02/09/24 02/09/24 Previous Rx's Medication Instructions Recorded Aspirin 81 mg PO DAILY 30 Days #30 tab 11/28/23 Isosorbide Mononitrate ER [Imdur] 60 mg PO DAILY #30 tab 02/12/24 Midodrine [ProAmatine] 5 mg PO AC-BID PRN #60 tab 02/12/24 carvediloL [Coreg*] 25 mg PO BID tab 02/12/24 Torsemide [Demadex] 100 mg PO DAILY #10 tablet 03/23/24 Allergies Allergy/AdvReac Type Severity Reaction Status Date / Time Iodinated Contrast Media Allergy Anaphylaxis Verified 03/23/24 12:55 Review of Systems ROS Statement: Those systems with pertinent positive or pertinent negative responses have been documented in the HPI. ROS Other: All systems not noted in ROS Statement are negative. Past Medical History Past Medical History: Diabetes Mellitus, Dialysis, Hyperlipidemia, Hypertension, Renal Disease Additional Past Medical History / Comment(s): IDDM type I on insulin pump, DKA, chronic kidney disease, bilateral lower extremity edema. peritoneal dialysis History of Any Multi-Drug Resistant Organisms: None Reported Past Surgical History: No Surgical Hx Reported Additional Past Surgical History / Comment(s): R knee arthroscopy, circumcism, HD cath in chest Past Anesthesia/Blood Transfusion Reactions: No Reported Reaction Past Psychological History: No Psychological Hx Reported Smoking Status: Former smoker Past Alcohol Use History: None Reported Past Drug Use History: None Reported - Past Family History Mother History Unknown: Yes Family Medical History: COPD Father Family Medical History: No Reported History Additional Family Medical History / Comment(s): Mother is healthy. General Exam - General Exam Comments Initial Comments: GENERAL: Patient is well-developed and well-nourished. Patient is nontoxic and well- hydrated and is in mild distress. ENT: Neck is soft and supple. No significant lymphadenopathy is noted. Oropharynx is clear. Moist mucous membranes. Neck has full range of motion without eliciting any pain. EYES: The sclera were anicteric and conjunctiva were pink and moist. Extraocular movements were intact and pupils were equal round and reactive to light. Eyelids were unremarkable. PULMONARY: Scattered crackles in the bases CARDIOVASCULAR: There is a regular rate and rhythm without any murmurs gallops or rubs. ABDOMEN: Soft and nontender with normal bowel sounds. SKIN: Skin is clear with no lesions or rashes and otherwise unremarkable. NEUROLOGIC: Patient is alert and oriented x3. Cranial nerves II through XII are grossly intact. Motor and sensory are also intact. Normal speech, volume and content. Symmetrical smile. MUSCULOSKELETAL: Normal extremities with adequate strength and full range of motion. 2+ edema bilaterally LYMPHATICS: No significant lymphadenopathy is noted PSYCHIATRIC: Normal psychiatric evaluation. Limitations: no limitations Course Vital Signs 03/23/24 12:53 Temperature 98.1 F Pulse Rate 63 Respiratory 20 Rate Blood Pressure 185/92 O2 Sat by Pulse 96 Oximetry Medical Decision Making - Medical Decision Making EKG is interpreted by myself. EKG shows a sinus rhythm at 66 bpm SC interval 191 QRS is 101 QT interval is 420 QTc is 433. Patient's EKG shows no ST segment ovation or depression. Was pt. sent in by a medical professional or institution (, RICK, IT HELP DESK MANAGER, urgent care, hospital, or [facility]...) When possible be specific @ -No Did you speak to anyone other than the patient for history (EMS, parent, family, police, friend...)? What history was obtained from this source @ -No Did you review nursing and triage notes (agree or disagree)? Why? @ -I reviewed and agree with nursing and triage notes Were old charts reviewed (outside hosp., previous admission, EMS record, old EKG, old radiological studies, urgent care reports/EKG's, [facility] records)? Report findings @ -No old charts were reviewed Differential Diagnosis? @ -Differential Dyspnea: Coronary syndrome, arrhythmia, tamponade, asthma, COPD, pulmonary embolism, pneumonia, pneumothorax, pulmonary effusion, anaphylaxis, diabetic ketoacidosis, flailed chest, pulmonary contusion, diaphragmatic rupture, anemia, neuromuscular, this is not meant to be an all-inclusive list. EKG interpreted by me (3pts min.). @ -As above X-rays interpreted by me (1pt min.). @ -X-ray shows stable pulmonary edema decreased amount of pleural effusions CT interpreted by me (1pt min.). @ -None done U/S interpreted by me (1pt. min.). @ -None done What testing was considered but not performed or refused? (CT, X-rays, U/S, labs)? Why? @ -None What meds were considered but not given or refused? Why? @ -None Did you discuss the management of the patient with other professionals (professionals i.e. RICK Rajan, IT HELP DESK MANAGER, lab, RT, psych nurse, high school social studies teacher, well driller helper, teacher, residential care officer, test case developer)? Give summary @ -No Was smoking cessation discussed for >3mins.? @ -No Was critical care preformed (if so, how long)? @ -No Were there social determinants of health that impacted care today? How? (Homelessness, low income, unemployed, alcoholism, drug addiction, transportation, low edu. Level, literacy, decrease access to med. care, nursing home, rehab)? @ -No Was there de-escalation of care discussed even if they declined (Discuss DNR or withdrawal of care, Hospice)? DNR status @ -No What co-morbidities impacted this encounter? (DM, HTN, Smoking, COPD, CAD, Cancer, CVA, ARF, Chemo, Hep., AIDS, mental health diagnosis, sleep apnea, morbid obesity)? @ -None Was patient admitted / discharged? Hospital course, mention meds given and route, prescriptions, significant lab abnormalities, going to OR and other pertinent info. @ -Patient was given 100 of Lasix because that is what he stated he was on I found out later the patient was on Demadex at home. Patient will be given a prescription for Demadex he will get dialyzed tomorrow back to see the patient h e was in no respiratory distress he was oxygenating in the high 90s. Undiagnosed new problem with uncertain prognosis? @ -No Drug Therapy requiring intensive monitoring for toxicity (Heparin, Nitro, I nsulin, Cardizem)? @ -No Were any procedures done? @ -No Diagnosis/symptom? @ -Jorge edema Acute, or Chronic, or Acute on Chronic? @ -Chronic Uncomplicated (without systemic symptoms) or Complicated (systemic symptoms)? @ -Complicated Side effects of treatment? @ -No Exacerbation, Progression, or Severe Exacerbation? @ -No Poses a threat to life or bodily function? How? (Chest pain, [place], [place], pneumonia, PE, COPD, DKA, ARF, appy, cholecystitis, CVA, Diverticulitis, Homicidal, Suicidal, threat to staff... and all critical care pts) @ -No - Lab Data Result diagrams: 03/23/24 13:41 03/23/24 13:41 Lab Results 03/23/24 03/23/24 03/23/24 Range/Units 13:41 13:41 13:41 WBC 5.3 (3.8-10.6) k/uL RBC 2.85 L (4.30-5.90) m/uL Hgb 8.6 L (13.0-17.5) gm/dL Hct 27.4 L (39.0-53.0) % MCV 96.2 (80.0-100.0) fL MCH 30.2 (25.0-35.0) pg MCHC 31.4 (31.0-37.0) g/dL RDW 18.1 H (11.5-15.5) % Plt Count 228 (150-450) k/uL MPV 8.0 Neutrophils % 67 % Lymphocytes % 11 % Monocytes % 6 % Eosinophils % 14 % Basophils % 1 % Neutrophils # 3.5 (1.3-7.7) k/uL Lymphocytes # 0.6 L (1.0-4.8) k/uL Monocytes # 0.3 (0-1.0) k/uL Eosinophils # 0.7 (0-0.7) k/uL Basophils # 0.1 (0-0.2) k/uL Hypochromasia Marked Anisocytosis Slight Macrocytosis Slight Sodium 135 L (137-145) mmol/L Potassium 4.9 (3.5-5.1) mmol/L Chloride 97 L (98-107) mmol/L Carbon Dioxide 30 (22-30) mmol/L Anion Gap 8 mmol/L BUN 65 H (9-20) mg/dL Creatinine 5.28 H (0.66-1.25) mg/dL Est GFR (CKD-EPI)AfAm 13 (>60 ml/min/1.73 sqM) Est GFR (CKD-EPI)NonAf 11 (>60 ml/min/1.73 sqM) Glucose 228 H (74-99) mg/dL Plasma Lactic Acid Howard 1.3 (0.7-2.0) mmol/L Calcium 8.9 (8.4-10.2) mg/dL Total Bilirubin 0.7 (0.2-1.3) mg/dL AST 28 (17-59) U/L ALT 19 (4-49) U/L Alkaline Phosphatase 128 H (38-126) U/L Troponin I (0.000-0.034) ng/mL NT-Pro-B Natriuret Pep [id number] pg/mL Total Protein 6.9 (6.3-8.2) g/dL Albumin 3.5 (3.5-5.0) g/dL 03/23/24 Range/Units 13:41 WBC (3.8-10.6) k/uL RBC (4.30-5.90) m/uL Hgb (13.0-17.5) gm/dL Hct (39.0-53.0) % MCV (80.0-100.0) fL MCH (25.0-35.0) pg MCHC (31.0-37.0) g/dL RDW (11.5-15.5) % Plt Count (150-450) k/uL MPV Neutrophils % % Lymphocytes % % Monocytes % % Eosinophils % % Basophils % % Neutrophils # (1.3-7.7) k/uL Lymphocytes # (1.0-4.8) k/uL Monocytes # (0-1.0) k/uL Eosinophils # (0-0.7) k/uL Basophils # (0-0.2) k/uL Hypochromasia Anisocytosis Macrocytosis Sodium (137-145) mmol/L Potassium (3.5-5.1) mmol/L Chloride (98-107) mmol/L Carbon Dioxide (22-30) mmol/L Anion Gap mmol/L BUN (9-20) mg/dL Creatinine (0.66-1.25) mg/dL Est GFR (CKD-EPI)AfAm (>60 ml/min/1.73 sqM) Est GFR (CKD-EPI)NonAf (>60 ml/min/1.73 sqM) Glucose (74-99) mg/dL Plasma Lactic Acid Howard (0.7-2.0) mmol/L Calcium (8.4-10.2) mg/dL Total Bilirubin (0.2-1.3) mg/dL AST (17-59) U/L ALT (4-49) U/L Alkaline Phosphatase (38-126) U/L Troponin I 0.024 (0.000-0.034) ng/mL NT-Pro-B Natriuret Pep pg/mL Total Protein (6.3-8.2) g/dL Albumin (3.5-5.0) g/dL Disposition Clinical Impression: Chronic pulmonary edema Disposition: HOME SELF-CARE Instructions (If sedation given, give patient instructions): Pulmonary Edema (ED) Prescriptions: Torsemide [Demadex] 100 mg PO DAILY #10 tablet Is patient prescribed a controlled substance at d/c from ED?: No Referrals: Devon Mattson MD [Primary Care Provider] - 1-2 days Time of Disposition: 15:11
[2024-03-23] MEDS: FUROSEMIDE 80 MG TAB PO STA (13:45)
[2024-03-23 13:52] LABS: Anisocytosis Slight; Basophils # (A) 0.1 k/uL (0-0.2); Basophils % (A) 1 %; Eosinophils # (A) 0.7 k/uL (0-0.7); Eosinophils % (A) 14 %; HCT 27.4 % (39.0-53.0); HGB 8.6 gm/dL (13.0-17.5); Hypochromasia Marked; Lymphocytes # (A) 0.6 k/uL (1.0-4.8); Lymphocytes % (A) 11 %; MCH 30.2 pg (25.0-35.0); MCHC 31.4 g/dL (31.0-37.0); MCV 96.2 fL (80.0-100.0); Macrocytosis Slight; Monocytes # (A) 0.3 k/uL (0-1.0); Monocytes % (A) 6 %; Neutrophils # (A) 3.5 k/uL (1.3-7.7); Neutrophils % (A) 67 %; Platelet Count 228 k/uL (150-450); RBC 2.85 m/uL (4.30-5.90); RDW 18.1 % (11.5-15.5); WBC 5.3 k/uL (3.8-10.6)
--- NOTE | 2024-03-23 14:07 | XR ---
EXAMINATION TYPE: XR chest 2V DATE OF EXAM: 03/23/2024 COMPARISON: 02/09/2024 TECHNIQUE: PA and lateral views submitted. HISTORY: Shortness of breath FINDINGS: Diffuse interstitial pattern with bibasilar infiltrate and small effusion. A dialysis catheter stable position. Osteopenia and degenerative changes. Underlying COPD suspected. Cardiomegaly may reflect cardiomyopat hy or pericardial effusion. IMPRESSION: 1. Findings are most typical of CHF. Stable prior exam.
[2024-03-23 14:14] LABS: ALT 19 U/L (4-49); AST 28 U/L (17-59); African American GFR (CKD) 13 (>60 ml/min/1.73 sqM); Albumin 3.5 g/dL (3.5-5.0); Alkaline Phosphatase 128 U/L (38-126); Anion Gap 8 mmol/L; Blood Urea Nitrogen 65 mg/dL (9-20); Calcium 8.9 mg/dL (8.4-10.2); Carbon Dioxide 30 mmol/L (22-30); Chloride 97 mmol/L (98-107); Glucose 228 mg/dL (74-99); Non-African American GFR(CKD) 11 (>60 ml/min/1.73 sqM); Potassium 4.9 mmol/L (3.5-5.1); Sodium 135 mmol/L (137-145); Total Bilirubin 0.7 mg/dL (0.2-1.3); Total Protein 6.9 g/dL (6.3-8.2)
[2024-03-23 14:39] LABS: NT-Pro-B-Type Natriuretic Pept 223000 pg/mL
[2024-03-23 17:09] VITALS: BP 192/98; PULSE 64; RESP 16; TEMP 98.4
== END 2024-03-23 16:28 | disposition home or self-care (01) ==
LOC: EC 12:34
DX: R06.02 Shortness of breath
CPT/HCPCS: 36415; 71046; 80053; 83605; 83880; 84484; 85025; 93005; 99285

== ENCOUNTER 2024-04-09 11:43 | Inpatient (IN) | payer BC ==
--- NOTE | 2024-04-09 12:17 | ED ---
General Adult HPI - General Chief complaint: Weakness Stated complaint: Vomiting, needs dialysis Time Seen by Provider: 04/09/24 11:53 Source: patient, family, RN notes reviewed Mode of arrival: wheelchair Limitations: no limitations - History of Present Illness Initial comments: Patient is a 58-year-old male present to the emergency department not feeling well. Onset of symptoms was the past couple of days. Patient feels cold and chilled. Patient has had some vomiting. Patient does feel somewhat short of breath. Patient was due for dialysis today however unable to make it. No abdominal pain. Patient feels fatigued and tired. - Related Data Home Medications Medication Instructions Recorded Confirmed Insulin Aspart (For Pump) [NovoLOG 0.01 unit SQ-PUMP CONTINUOUS 02/21/23 02/09/24 (For Pump)] FLUoxetine HCL [PROzac] 10 mg PO DAILY 07/14/23 02/09/24 Atorvastatin [Lipitor] 20 mg PO DAILY 11/14/23 02/09/24 Folic Acid/Vit B Complex and C 0.8 mg PO DAILY 11/14/23 02/09/24 [Lilian-Marsha Tablet] Ondansetron Odt [Zofran ODT] 4 mg PO Q6H PRN 11/14/23 02/09/24 amLODIPine [Norvasc] 10 mg PO DAILY 11/14/23 02/09/24 hydrALAZINE HCL [Apresoline] 100 mg PO TID 11/14/23 02/09/24 Torsemide [Demadex] 100 mg PO DAILY 02/09/24 02/09/24 Previous Rx's Medication Instructions Recorded Aspirin 81 mg PO DAILY 30 Days #30 tab 11/28/23 Isosorbide Mononitrate ER [Imdur] 60 mg PO DAILY #30 tab 02/12/24 Midodrine [ProAmatine] 5 mg PO AC-BID PRN #60 tab 02/12/24 carvediloL [Coreg*] 25 mg PO BID tab 02/12/24 Torsemide [Demadex] 100 mg PO DAILY #10 tablet 03/23/24 Allergies Allergy/AdvReac Type Severity Reaction Status Date / Time Iodinated Contrast Media Allergy Anaphylaxis Verified 04/09/24 11:52 Review of Systems ROS Statement: Those systems with pertinent positive or pertinent negative responses have been documented in the HPI. ROS Other: All systems not noted in ROS Statement are negative. Constitutional: Reports: chills Eyes: Denies: eye pain ENT: Denies: ear pain Respiratory: Reports: cough, dyspnea Cardiovascular: Denies: chest pain Endocrine: Reports: fatigue Gastrointestinal: Reports: nausea, vomiting. Denies: abdominal pain Genitourinary: Denies: dysuria Musculoskeletal: Denies: back pain Skin: Denies: rash Neurological: Denies: weakness Past Medical History Past Medical History: Diabetes Mellitus, Dialysis, Hyperlipidemia, Hypertension, Renal Disease Additional Past Medical History / Comment(s): IDDM type I on insulin pump, DKA, chronic kidney disease, bilateral lower extremity edema. peritoneal dialysis History of Any Multi-Drug Resistant Organisms: None Reported Past Surgical History: No Surgical Hx Reported Additional Past Surgical History / Comment(s): R knee arthroscopy, circumcism, HD cath in chest Past Anesthesia/Blood Transfusion Reactions: No Reported Reaction Past Psychological History: No Psychological Hx Reported Smoking Status: Former smoker Past Alcohol Use History: None Reported Past Drug Use History: None Reported - Past Family History Mother History Unknown: Yes Family Medical History: COPD Father Family Medical History: No Reported History Additional Family Medical History / Comment(s): Mother is healthy. General Exam Limitations: no limitations General appearance: alert, in no apparent distress Head exam: Present: normocephalic Eye exam: Present: normal appearance ENT exam: Present: normal exam Neck exam: Present: normal inspection. Absent: tenderness, meningismus Respiratory exam: Present: normal lung sounds bilaterally Cardiovascular Exam: Present: regular rate, normal rhythm GI/Abdominal exam: Present: soft. Absent: tenderness Extremities exam: Present: pedal edema. Absent: calf tenderness Neurological exam: Present: alert Psychiatric exam: Present: normal affect, normal mood Skin exam: Present: other (Stage II ulcer left foot approximately 1.5 cm) Course Vital Signs 04/09/24 11:47 Temperature 100.5 F H Pulse Rate 83 Respiratory 16 Rate Blood Pressure 193/107 O2 Sat by Pulse 96 Oximetry EKG Findings - EKG Results: EKG: interpreted by ERMD (Nonspecific ST-T), sinus rhythm, normal axis, normal QRS Medical Decision Making - Medical Decision Making Was pt. sent in by a medical professional or institution (, PA, CONFERENCE SERVICES COORDINATOR, urgent care, hospital, or retirement...) When possible be specific @ -No Did you speak to anyone other than the patient for history (EMS, parent, family, police, friend...)? What history was obtained from this source @ -Family is present and helps provide history including that patient has not missed dialysis Did you review nursing and triage notes (agree or disagree)? Why? @ -I reviewed and agree with nursing and triage notes Were old charts reviewed (outside hosp., previous admission, EMS record, old EKG, old radiological studies, urgent care reports/EKG's, retirement records)? Report findings @ -His labs reviewed previous visits Differential Diagnosis (chest pain, altered mental status, abdominal pain women, abdominal pain men, vaginal bleeding, weakness, fever, dyspnea, syncope, headache, dizziness, GI bleed, back pain, seizure, CVA, palpatations, mental health, musculoskeletal)? @ -Differential Weakness: Hypoglycemia, shock, sepsis, hyponatremia, anemia, infection, [place], ETOH, adverse medicine reaction, overdose, stroke, this is not meant to be an all-inclusive list. Differential Fever: Pneumonia, viral URI, endocarditis, myocarditis, pericarditis, otitis, sinusitis, peritonsillar Abscess, retropharyngeal Abscess, epiglottitis, peritonitis, appendicitis, Elizabeth cystitis, diverticulitis, hepatitis, colitis, UTI, PID, TOA, pyelonephritis, prostatitis, epididymitis, meningitis, encephalitis, pulmonary embolism, CVA, thyroid storm, pancreatitis, adrenal crisis, cavernous sinus thrombosis, this is not meant to be an all-inclusive list. EKG interpreted by me (3pts min.). @ -As above X-rays interpreted by me (1pt min.). @ -Chest x-ray with some mild interstitial prominence CT interpreted by me (1pt min.). @ -None done U/S interpreted by me (1pt. min.). @ -None done What testing was considered but not performed or refused? (CT, X-rays, U/S, labs)? Why? @ -CT abdomen pelvis will be What meds were considered but not given or refused? Why? @ -None Did you discuss the management of the patient with other professionals (professionals i.e. , PA, CONFERENCE SERVICES COORDINATOR, lab, RT, psych nurse, social work lecturer, server engineer, teacher, court officer, machine adjuster leader case trim)? Give summary @ -Dr. George who will admit covering Dr. Gordon. Dr. Shaffer Was smoking cessation discussed for >3mins.? @ -No Was critical care preformed (if so, how long)? @ -31 minutes critical care time Were there social determinants of health that impacted care today? How? (Homelessness, low income, unemployed, alcoholism, drug addiction, transpo rtation, low edu. Level, literacy, decrease access to med. care, nursing home, rehab)? @ -No Was there de-escalation of care discussed even if they declined (Discuss DNR or withdrawal of care, Hospice)? DNR status @ -No What co-morbidities impacted this encounter? (DM, HTN, Smoking, COPD, CAD, Cancer, CVA, ARF, Chemo, Hep., AIDS, mental health diagnosis, sleep apnea, morbid obesity)? @ -Dialysis patient Was patient admitted / discharged? Hospital course, mention meds given and route, prescriptions, significant lab abnormalities, going to OR and other pertinent info. @ -Patient presents not feeling well with nonspecific symptoms and vomiting. Patient has hyperkalemia. Medications provided. Nephrology will be consulted. Patient will be admitted. On reevaluation there is some mild right upper quadrant tenderness with mild changes of liver enzymes. CT scan will be added. Admission orders written. Undiagnosed new problem with uncertain prognosis? @ -No Drug Therapy requiring intensive monitoring for toxicity (Heparin, Nitro, Insulin, Cardizem)? @ -No Were any procedures done? @ -No Diagnosis/symptom? @ -Vomiting, fever, hyperkalemia Acute, or Chronic, or Acute on Chronic? @ -Acute, acute, acute Uncomplicated (without systemic symptoms) or Complicated (systemic symptoms)? @ -Default Side effects of treatment? @ -No Exacerbation, Progression, or Severe Exacerbation? @ -No Poses a threat to life or bodily function? How? (Chest pain, [place], [place], pneumonia, PE, COPD, DKA, ARF, appy, cholecystitis, CVA, Diverticulitis, Homicidal, Suicidal, threat to staff... and all critical care pts) @ -Threat to metabolic function - Lab Data Result diagrams: 04/09/24 12:48 04/09/24 12:48 Lab Results 04/09/24 04/09/24 04/09/24 Range/Units 12:48 12:48 12:48 WBC 18.2 H (3.8-10.6) k/uL RBC 3.33 L (4.30-5.90) m/uL Hgb 10.2 L (13.0-17.5) gm/dL Hct 32.4 L (39.0-53.0) % MCV 97.2 (80.0-100.0) fL MCH 30.7 (25.0-35.0) pg MCHC 31.6 (31.0-37.0) g/dL RDW 19.6 H (11.5-15.5) % Plt Count 200 (150-450) k/uL MPV 8.4 Neutrophils % 94 % Lymphocytes % 2 % Monocytes % 3 % Eosinophils % 0 % Basophils % 0 % Neutrophils # 17.0 H (1.3-7.7) k/uL Lymphocytes # 0.4 L (1.0-4.8) k/uL Monocytes # 0.5 (0-1.0) k/uL Eosinophils # 0.1 (0-0.7) k/uL Basophils # 0.1 (0-0.2) k/uL Hypochromasia Slight Anisocytosis Slight Macrocytosis Slight PT 13.1 H (10.0-12.5) sec INR 1.2 H (<1.2) APTT 29.9 (22.0-30.0) sec Sodium 130 L (137-145) mmol/L Potassium 7.5 H* (3.5-5.1) mmol/L Chloride 95 L (98-107) mmol/L Carbon Dioxide 24 (22-30) mmol/L Anion Gap 11 mmol/L BUN 77 H (9-20) mg/dL Creatinine 6.66 H (0.66-1.25) mg/dL Est GFR (CKD-EPI)AfAm 10 (>60 ml/min/1.73 sqM) Est GFR (CKD-EPI)NonAf 8 (>60 ml/min/1.73 sqM) Glucose 82 (74-99) mg/dL Plasma Lactic Acid Howard (0.7-2.0) mmol/L Calcium 9.0 (8.4-10.2) mg/dL Magnesium 2.3 (1.6-2.3) mg/dL Total Bilirubin 1.5 H (0.2-1.3) mg/dL AST 183 H (17-59) U/L ALT 77 H (4-49) U/L Alkaline Phosphatase 117 (38-126) U/L Total Protein 7.7 (6.3-8.2) g/dL Albumin 4.0 (3.5-5.0) g/dL Influenza Type A (PCR) (Not Detectd) Influenza Type B (PCR) (Not Detectd) RSV (PCR) (Not Detectd) SARS-CoV-2 (PCR) (Not Detectd) 04/09/24 04/09/24 Range/Units 12:48 12:57 WBC (3.8-10.6) k/uL RBC (4.30-5.90) m/uL Hgb (13.0-17.5) gm/dL Hct (39.0-53.0) % MCV (80.0-100.0) fL MCH (25.0-35.0) pg MCHC (31.0-37.0) g/dL RDW (11.5-15.5) % Plt Count (150-450) k/uL MPV Neutrophils % % Lymphocytes % % Monocytes % % Eosinophils % % Basophils % % Neutrophils # (1.3-7.7) k/uL Lymphocytes # (1.0-4.8) k/uL Monocytes # (0-1.0) k/uL Eosinophils # (0-0.7) k/uL Basophils # (0-0.2) k/uL Hypochromasia Anisocytosis Macrocytosis PT (10.0-12.5) sec INR (<1.2) APTT (22.0-30.0) sec Sodium (137-145) mmol/L Potassium (3.5-5.1) mmol/L Chloride (98-107) mmol/L Carbon Dioxide (22-30) mmol/L Anion Gap mmol/L BUN (9-20) mg/dL Creatinine (0.66-1.25) mg/dL Est GFR (CKD-EPI)AfAm (>60 ml/min/1.73 sqM) Est GFR (CKD-EPI)NonAf (>60 ml/min/1.73 sqM) Glucose (74-99) mg/dL Plasma Lactic Acid Howard 2.3 H* (0.7-2.0) mmol/L Calcium (8.4-10.2) mg/dL Magnesium (1.6-2.3) mg/dL Total Bilirubin (0.2-1.3) mg/dL AST (17-59) U/L ALT (4-49) U/L Alkaline Phosphatase (38-126) U/L Total Protein (6.3-8.2) g/dL Albumin (3.5-5.0) g/dL Influenza Type A (PCR) Not Detected (Not Detectd) Influenza Type B (PCR) Not Detected (Not Detectd) RSV (PCR) Not Detected (Not Detectd) SARS-CoV-2 (PCR) Not Detected (Not Detectd) Critical Care Time Critical Care Time: Yes Total Critical Care Time: 31 Disposition Clinical Impression: Hyperkalemia Disposition: ADMITTED IP TO THIS [facility] Condition: Serious Is patient prescribed a controlled substance at d/c from ED?: No Referrals: Devon Mattson MD [Primary Care Provider] - 1-2 days Time of Disposition: 14:47
[2024-04-09] MEDS: ACETAMINOPHEN IV (For NPO) 1,000 MG in EMPTY BAG 1 BAG IVPB STA (12:49)
[2024-04-09] MEDS: ONDANSETRON 4 MG/2 ML VIAL IVP STA (12:50)
[2024-04-09] MEDS: FAMOTIDINE 20 MG/2 ML VIAL IV STA (12:51)
[2024-04-09 13:22] LABS: Anisocytosis Slight; Basophils # (A) 0.1 k/uL (0-0.2); Basophils % (A) 0 %; Eosinophils # (A) 0.1 k/uL (0-0.7); Eosinophils % (A) 0 %; HCT 32.4 % (39.0-53.0); HGB 10.2 gm/dL (13.0-17.5); Hypochromasia Slight; Lymphocytes # (A) 0.4 k/uL (1.0-4.8); Lymphocytes % (A) 2 %; MCH 30.7 pg (25.0-35.0); MCHC 31.6 g/dL (31.0-37.0); MCV 97.2 fL (80.0-100.0); Macrocytosis Slight; Mean Platelet Volume 8.4; Monocytes # (A) 0.5 k/uL (0-1.0); Monocytes % (A) 3 %; Neutrophils % (A) 94 %; Platelet Count 200 k/uL (150-450); RBC 3.33 m/uL (4.30-5.90); RDW 19.6 % (11.5-15.5); WBC 18.2 k/uL (3.8-10.6)
[2024-04-09 13:41] LABS: ALT 77 U/L (4-49); AST 183 U/L (17-59); African American GFR (CKD) 10 (>60 ml/min/1.73 sqM); Alkaline Phosphatase 117 U/L (38-126); Anion Gap 11 mmol/L; Blood Urea Nitrogen 77 mg/dL (9-20); Carbon Dioxide 24 mmol/L (22-30); Chloride 95 mmol/L (98-107); Glucose 82 mg/dL (74-99); Magnesium 2.3 mg/dL (1.6-2.3); Non-African American GFR(CKD) 8 (>60 ml/min/1.73 sqM); Sodium 130 mmol/L (137-145); Total Bilirubin 1.5 mg/dL (0.2-1.3); Total Protein 7.7 g/dL (6.3-8.2)
[2024-04-09 13:45] LABS: INR 1.2 (<1.2); Partial Thromboplastin Time 29.9 sec (22.0-30.0); Prothrombin Time 13.1 sec (10.0-12.5)
--- NOTE | 2024-04-09 13:54 | XR ---
EXAMINATION TYPE: XR chest 2V DATE OF EXAM: 04/09/2024 1:32 PM CLINICAL INDICATION: Male, 58 years old with history of Weakness; COMPARISON: Chest radiographs from 03/23/2024 TECHNIQUE: XR chest 2V Frontal view of the chest. FINDINGS: Lungs/Pleura: There is no evidence of pleural effusion, focal consolidation, or pneumothorax. Pulmonary vascularity: Pulmonary vascular congestion. Heart/mediastinum: Cardiomediastinal silhouette is enlarged. Musculoskeletal: No acute osseous pathology. Other findings: None Lines/Tubes: Left internal jugular central venous catheter with distal tip at the cavoatrial junction. IMPRESSION: Cardiomegaly and mild pulmonary vascular congestion. Correlate with BNP for congestive heart failure. [facility], , 04/09/2024 1:52 PM
[2024-04-09 13:59] LABS: Potassium 7.5 mmol/L (3.5-5.1)
[2024-04-09] MEDS ORDERED: ONDANSETRON 4 MG/2 ML VIAL IVP PRN (14:51)
[2024-04-09] MEDS ORDERED: NALOXONE 0.4 MG/ML 1 ML VIAL IV PRN (14:51)
--- NOTE | 2024-04-09 15:37 | P.HPIM ---
History of Present Illness H&P Date: 04/09/24 Patient is a 58-year-old male with PMH of ESRD (on hemodialysis MWF), hypertension, hyperlipidemia and type 2 diabetes presented to the ED with complaints of generalized weakness and some shortness of breath. patient history is supplemented by who is present in the room. Patient states that he missed his dialysis session today. patient states that he has not been feeling well for last 3 to 4 days. He has been spiking fever and have chills. He endorses mild nonproductive cough. Per , she she has never seen him this sick and is looking pale. Patient is not complaining of any chest pain, abdominal pain, nausea, vomiting or numbness or tingling in upper or lower extremities. Patient states that he produces small amounts of urine. He is not complaining of any dysuria or hematuria. Per , patient did complain of mild abdominal pain when examined by healthcare professional before this interview. However at the time of interview patient denies abdominal pain. Denies any bloody stools. Denies diarrhea or constipation. Chest x-ray done in the ER remarkable for cardiomegaly and mild pulmonary vascular congestion. EKG shows sinus rhythm with tall T waves in V3, V4, V5, V6 Laboratory evaluation in the ED shows WBC 18.2 with neutrophil count of 17.0, hemoglobin 10.2, hematocrit 32.4, platelet count 200, APTT 29.9, INR 1.2, sodium 130, potassium 7.5, chloride 95, BUN 77, creatinine 6.66, lactic acid 2.3, total bili 1.5, AST 183, ALT 77 Review of systems: Pertinent positives and negatives as discussed in HPI, a complete review of systems was performed and all other systems are negative. Social history: Tobacco: [id number]; quit 5 years ago Alcohol: Former alcohol drinker Recreational drugs: None Physical examination: Vital signs reviewed General: non toxic, no distress, appears at stated age, normal weight Derm: no unusual rashes/lesions, warm Head: atraumatic, normocephalic, symmetric Eyes: EOMI, no lid lag, scleral icterus, pupils equal round reactive to light ENT: Nose and ears atraumatic Neck: No cervical lymphadenopathy, trachea midline, supple Mouth: no lip lesion, mucus membranes moist Cardiovascular: S1S2 reg, no murmur, positive dorsalis pedis pulse bilateral, no edema Lungs: CTA bilateral, no rhonchi, coarse crackles, no accessory muscle use Abdominal: soft, nontender to palpation, no guarding Ext: muscle strength 5 out of 5 in all 4 extremities grossly, no gross muscle atrophy, no contractures, Neuro: CN II-XI grossly intact, no gross focal neuro deficits Psych: Alert, oriented, appropriate affect Assessment/Plan: Patient is a 58-year-old male with PMH of ESRD (on hemodialysis MWF), hypertension, hyperlipidemia and type 2 diabetes presented to the ED with complaints of generalized weakness and some shortness of breath who missed his hemo-dialysis session today. #ESRD on hemodialysis #Generalized weakness secondary to above #Hyperkalemia secondary to above #Normocytic anemia secondary to above #Hyponatremia secondary to above sodium 130, potassium 7.5, chloride 95, BUN 77, creatinine 6.66 Order Lokelma 5 mg p.o. once Calcium gluconate: 1 amp IV given in ED Regular insulin 10 units IV x 1 with 1 amp of D50 Repeat potassium level in p.m. IV normal saline 20 cc/h Cardiac telemetry Consult nephrology Monitor CMP Order mag, phosphorus # Severe sepsis Suspected source: Pneumonia versus permacath versus intra-abdominal Patient complained of abdominal pain when examined by previous healthcare professional WBC 18.2 with neutrophil count of 17.0, lactic acid 2.3 Start cefepime 1 g IVPB every 12 hours Blood culture ordered Repeat CBC in a.m. c/w IV normal saline at 20 cc/h; conservative fluid management secondary to ESRD and volume overload Order CT abdomen/pelvis Order sputum culture, blood culture, permacath culture nares swab for screening MRSA Order urinalysis with reflex to culture Order amylase, lipase to r/o pancreatitis #Hypertension urgency Blood pressure 193/107 amlodipine 10 mg p.o. daily Carvedilol 25 mg p.o. twice daily Hydralazine 100 mg p.o. daily Imdur 30 mg p.o. daily Losartan 50 mg p.o. daily Continue monitor blood pressure #Transaminitis AST 183, ALT 77, bilirubin 1.[address] abdomen/pelvis Monitor CMP #Chronic condition Type 2 diabetes: Resume insulin aspart 0.01 unit subcu pump continuous Continue monitor serum glucose level Anxiety/depression: Resume fluoxetine 10 mg p.o. daily DVT prophylaxis: Heparin SQ every 8 F: IV normal saline at 20 cc/h E: Replete as needed N: N.p.o. A: Fall precautions The patient is admitted with an anticipated more than 2 midnight stay for evaluation of ESRD and leukocytosis CODE STATUS: Full code Discussed with: Patient Anticipated discharge place: Pending clinical course I saw and evaluated the patient with the resident and agree with the documented assessment findings in the note above. I was available for brar and critical parts of this assessment and my plan is reflected in this note. Past Medical History Past Medical History: Diabetes Mellitus, Dialysis, Hyperlipidemia, Hypertension, Renal Disease Additional Past Medical History / Comment(s): IDDM type I on insulin pump, DKA, chronic kidney disease, bilateral lower extremity edema. peritoneal dialysis History of Any Multi-Drug Resistant Organisms: None Reported Past Surgical History: No Surgical Hx Reported Additional Past Surgical History / Comment(s): R knee arthroscopy, circumcism, HD cath in chest Past Anesthesia/Blood Transfusion Reactions: No Reported Reaction Past Psychological History: No Psychological Hx Reported Smoking Status: Former smoker Past Alcohol Use History: None Reported Past Drug Use History: None Reported - Past Family History Mother History Unknown: Yes Family Medical History: COPD Father Family Medical History: No Reported History Additional Family Medical History / Comment(s): Mother is healthy. Medications and Allergies Home Medications Medication Instructions Recorded Confirmed Type Insulin Aspart (For Pump) [NovoLOG 0.01 unit SQ-PUMP CONTINUOUS MDD 02/21/23 04/09/24 History (For Pump)] 100 units FLUoxetine HCL [PROzac] 10 mg PO DAILY 07/14/23 04/09/24 History Atorvastatin [Lipitor] 20 mg PO DAILY 11/14/23 04/09/24 History Folic Acid/Vit B Complex and C 0.8 mg PO DAILY 11/14/23 04/09/24 History [Lilian-Marsha Tablet] Ondansetron Odt [Zofran ODT] 4 mg PO Q6H PRN 11/14/23 04/09/24 History amLODIPine [Norvasc] 10 mg PO DAILY 11/14/23 04/09/24 History hydrALAZINE HCL [Apresoline] 100 mg PO TID 11/14/23 04/09/24 History Aspirin 81 mg PO DAILY 30 Days #30 tab 11/28/23 04/09/24 Rx Torsemide [Demadex] 100 mg PO DAILY 02/09/24 04/09/24 History Isosorbide Mononitrate ER [Imdur] 30 mg PO DAILY 04/09/24 04/09/24 History Losartan [Cozaar] 50 mg PO DAILY 04/09/24 04/09/24 History carvediloL [Coreg] 25 mg PO BID 04/09/24 04/09/24 History methocarbamoL 750 mg PO Q4H PRN 04/09/24 04/09/24 History Allergies Allergy/AdvReac Type Severity Reaction Status Date / Time Iodinated Contrast Media Allergy Anaphylaxis Verified 04/09/24 14:44 Physical Exam Vitals: Vital Signs Temp Pulse Resp BP Pulse Ox 04/09/24 11:47 100.5 F H 83 16 193/107 96 Intake and Output 04/09/24 04/09/24 04/09/24 06:59 14:59 22:59 Other: Weight 81.647 kg Results CBC & Chem 7: 04/09/24 12:48 04/09/24 12:48 Labs: Abnormal Lab Results - Last 24 Hours (Table) 04/09/24 04/09/24 04/09/24 Range/Units 12:48 12:48 12:48 WBC 18.2 H (3.8-10.6) k/uL RBC 3.33 L (4.30-5.90) m/uL Hgb 10.2 L (13.0-17.5) gm/dL Hct 32.4 L (39.0-53.0) % RDW 19.6 H (11.5-15.5) % Neutrophils # 17.0 H (1.3-7.7) k/uL Lymphocytes # 0.4 L (1.0-4.8) k/uL PT 13.1 H (10.0-12.5) sec INR 1.2 H (<1.2) Sodium 130 L (137-145) mmol/L Potassium 7.5 H* (3.5-5.1) mmol/L Chloride 95 L (98-107) mmol/L BUN 77 H (9-20) mg/dL Creatinine 6.66 H (0.66-1.25) mg/dL Plasma Lactic Acid Howard (0.7-2.0) mmol/L Total Bilirubin 1.5 H (0.2-1.3) mg/dL AST 183 H (17-59) U/L ALT 77 H (4-49) U/L 04/09/24 Range/Units 12:48 WBC (3.8-10.6) k/uL RBC (4.30-5.90) m/uL Hgb (13.0-17.5) gm/dL Hct (39.0-53.0) % RDW (11.5-15.5) % Neutrophils # (1.3-7.7) k/uL Lymphocytes # (1.0-4.8) k/uL PT (10.0-12.5) sec INR (<1.2) Sodium (137-145) mmol/L Potassium (3.5-5.1) mmol/L Chloride (98-107) mmol/L BUN (9-20) mg/dL Creatinine (0.66-1.25) mg/dL Plasma Lactic Acid Howard 2.3 H* (0.7-2.0) mmol/L Total Bilirubin (0.2-1.3) mg/dL AST (17-59) U/L ALT (4-49) U/L
[2024-04-09] MEDS: ALBUTEROL NEB (CONC) 2.5 MG/0.5 ML INHALATION ONE (15:38)
[2024-04-09] MEDS: DEXTROSE 50% SYRINGE 50 ML IVP ONE (15:54)
[2024-04-09] MEDS: INSULIN REGULAR 100 UNIT/ML VIAL (IV) IV ONE (15:54)
[2024-04-09] MEDS: SODIUM BICARB 8.4% 50 ML SYR (1 MEQ/ML) IV ONE (15:56)
[2024-04-09] MEDS: CEFEPIME 1 GM in SODIUM CHLORIDE 0.9% 50 ML IVPB SCH (15:57)
[2024-04-09] MEDS ORDERED: VANCOMYCIN IV PER PHARMACY 1 EACH MISC MISCELLANE PRN (16:40)
[2024-04-09] MEDS: CALCIUM GLUCONATE IN NACL 1 GM in SALINE 1 100ML.BAG IVPB ONE (17:09)
[2024-04-09 17:31] LABS: Amylase 45 U/L (30-110); Lipase 41 U/L (23-300)
[2024-04-09 18:09] LABS: Glucose,Whole Blood 58 mg/dL (70-110)
[2024-04-09 18:09] LABS: Glucose,Whole Blood 45 mg/dL (70-110)
[2024-04-09] MEDS ORDERED: DEXTROSE 50% SYRINGE 50 ML IVP PRN (18:38)
[2024-04-09] MEDS: SODIUM CHLORIDE 0.9% 1,000 ML IV SCH (18:53)
[2024-04-09] MEDS: VANCOMYCIN 1,500 MG in SODIUM CHLORIDE 0.9% 500 ML 500 ML IVPB ONE (18:53)
[2024-04-09] MEDS: hydrALAZINE HCL 50 MG TAB PO SCH (19:03)
[2024-04-09 20:26] LABS: Glucose,Whole Blood 74 mg/dL (70-110)
[2024-04-09] MEDS: carvediloL 12.5 MG TAB PO SCH (20:31)
--- NOTE | 2024-04-09 20:39 | CT ---
EXAMINATION TYPE: CT abdomen pelvis wo con DATE OF EXAM: 04/09/2024 COMPARISON: 08/02/2023 INDICATION: Abdominal pain, fever. DLP: 720.8 mGycm, Automated exposure control for dose reduction was used. CONTRAST: 0 mL of Isovue 300. Study performed without Oral Contrast TECHNIQUE: Axial images were obtained from above the diaphragm to the pubic rami in the axial plane a t 5 mm thick sections. Reconstructed images are reviewed on the computer in the coronal plane. FINDINGS: Limited CT sections are obtained the lung bases. There is a small right pleural effusion. Minimal le ft pleural effusion is present. There may be some minimal compressive atelectasis adjacent. Heart siz e is somewhat prominent.. CT ABDOMEN: There is some beam hardening artifact within the upper abdomen. Liver: Hepatomegaly is present with liver measuring 23 cm in craniocaudal dimension. Normal less than 15.5. Small amount of ascites adjacent to the right lower tip of the liver. Spleen: Normal Pancreas: Normal Adrenal glands: The adrenal glands are normal. Gallbladder: Normal Kidneys: Dense calcification appears to surround the lower pole of the left kidney. No masses are ev ident. There is a 2.3 cm cyst on the inferior pole right kidney. No renal stones are identified Aorta: Vascular calcification is within the aorta. Inferior vena cava: Normal. CT PELVIS: Some free fluid is within the pelvis. Loops of bowel within the abdomen and pelvis are normal. This study is without oral contrast limi ting bowel evaluation. Appendix: Not identified. No dilated tubular structure or inflammatory change is evident. Urinary bladder: Urinary bladder wall thickening appears to be present diffusely Genitourinary structures: Prostate is moderately dominant Osseous structures: No suspicious lytic or sclerotic lesions. IMPRESSION: 1. Hepatomegaly measuring 23 cm. 2. Small right pleural effusion. 3. Small amount of ascites adjacent to liver. More moderate free fluid is within the pelvis. 4. Rim increasing from comparison Calcification at the inferior pole left kidney. 5. No suspicious acute changes to account for fever. [facility], , 04/09/2024 8:37 PM
[2024-04-09] MEDS: HEPARIN SODIUM,PORCINE 5,000 UNIT/ML 1 ML VIAL SQ SCH (23:14)
[2024-04-09] MEDS: SODIUM ZIRCONIUM CYCLOSILICATE 10 GM PACKET PO ONE (23:35)
[2024-04-10 02:16] LABS: Hepatitis B Surface Antigen Nonreactive (Nonreactive)
[2024-04-10 02:27] LABS: Hepatitis B Surface AB- Quant 3.5 mIU/mL
[2024-04-10 06:00] LABS: Anisocytosis Slight; Basophils % (A) 0 %; Eosinophils # (A) 0.1 k/uL (0-0.7); Eosinophils % (A) 1 %; HCT 29.1 % (39.0-53.0); HGB 9.1 gm/dL (13.0-17.5); Hypochromasia Marked; Lymphocytes # (A) 0.4 k/uL (1.0-4.8); Lymphocytes % (A) 5 %; MCH 31.2 pg (25.0-35.0); MCHC 31.2 g/dL (31.0-37.0); Macrocytosis Moderate; Mean Platelet Volume 8.6; Monocytes # (A) 0.2 k/uL (0-1.0); Monocytes % (A) 3 %; Neutrophils # (A) 8.2 k/uL (1.3-7.7); Neutrophils % (A) 91 %; Platelet Count 147 k/uL (150-450); RBC 2.91 m/uL (4.30-5.90); RDW 19.2 % (11.5-15.5)
[2024-04-10 06:15] LABS: Glucose,Whole Blood 62 mg/dL (70-110)
[2024-04-10 06:19] LABS: ALT 96 U/L (4-49); AST 153 U/L (17-59); African American GFR (CKD) 12 (>60 ml/min/1.73 sqM); Albumin 3.2 g/dL (3.5-5.0); Alkaline Phosphatase 95 U/L (38-126); Anion Gap 10 mmol/L; Blood Urea Nitrogen 59 mg/dL (9-20); Calcium 8.5 mg/dL (8.4-10.2); Carbon Dioxide 24 mmol/L (22-30); Chloride 94 mmol/L (98-107); Glucose 55 mg/dL (74-99); Magnesium 2.1 mg/dL (1.6-2.3); Non-African American GFR(CKD) 10 (>60 ml/min/1.73 sqM); Phosphorus 6.4 mg/dL (2.5-4.5); Potassium 5.7 mmol/L (3.5-5.1); Sodium 128 mmol/L (137-145); Total Bilirubin 1.1 mg/dL (0.2-1.3); Total Protein 6.4 g/dL (6.3-8.2)
[2024-04-10] MEDS: Insulin Aspart (For Pump) 100 UNIT/ML VIAL SQ-PUMP SCH (07:34)
[2024-04-10] MEDS: FLUoxetine HCL 10 MG CAP PO SCH (08:10)
[2024-04-10] MEDS: amLODIPine 10 MG TAB PO SCH (08:10)
[2024-04-10] MEDS: ISOSORBIDE MONONITRATE ER 30 MG TAB.ER.24H PO SCH (08:10)
[2024-04-10] MEDS: TORSEMIDE 20 MG TAB PO SCH (08:10)
[2024-04-10] MEDS: LOSARTAN 50 MG TAB PO SCH (08:10)
[2024-04-10] MEDS: FOLIC ACID-VIT B COMPLEX-VIT C 1 CAP PO SCH (08:10)
[2024-04-10] MEDS: ATORVASTATIN 20 MG TAB PO SCH (08:10)
[2024-04-10] MEDS: PANTOPRAZOLE 40 MG/10 ML VIAL IV SCH (08:11)
[2024-04-10 08:46] LABS: Glucose,Whole Blood 59 mg/dL (70-110)
[2024-04-10 11:18] LABS: Glucose,Whole Blood 107 mg/dL (70-110)
[2024-04-10] MEDS: ACETAMINOPHEN TAB 325 MG TAB PO PRN (12:41)
--- NOTE | 2024-04-10 13:16 | P.PN ---
Subjective Progress Note Date: 04/10/24 Hospital course: Patient is a 58-year-old male with PMH of ESRD (on hemodialysis MWF), hypertension, hyperlipidemia and type 2 diabetes presented to the ED with complaints of generalized weakness and some shortness of breath. patient history is supplemented by who is present in the room. Patient states that he missed his dialysis session today. patient states that he has not been feeling well for last 3 to 4 days. He has been spiking fever and have chills. He endorses mild nonproductive cough. Per , she she has never seen him this sick and is looking pale. Patient is not complaining of any chest pain, abdominal pain, nausea, vomiting or numbness or tingling in upper or lower extremities. Patient states that he produces small amounts of urine. He is not complaining of any dysuria or hematuria. Chest x-ray done in the ER remarkable for cardiomegaly and mild pulmonary vascular congestion. EKG shows sinus rhythm with tall T waves in V3, V4, V5, V6. Laboratory evaluation in the ED shows WBC 18.2 with neutrophil count of 17.0, hemoglobin 10.2, hematocrit 32.4, platelet count 200, APTT 29.9, INR 1.2, sodium 130, potassium 7.5, chloride 95, BUN 77, creatinine 6.66, lactic acid 2.3, total bili 1.5, AST 183, ALT 77. CT abdomen and pelvis shows hepatosplenomegaly and small right pleural effusion. Patient was admitted for concerns regarding sepsis as well as hyperkalemia. Nephrology consulted. Patient was given session of dialysis. Potassium level is mildly improved. White cell count trending downward. Patient continues on IV antibiotic for empiric coverage. Subjective: Patient seen and examined at the bedside. Patient had a hypoglycemic event. Blood glucose level was 59. Patient was given some juice and amp of D50 W. Glucose level improved to 107. All Systems reviewed and pertinent positives and negatives noted in HPI, all other symptoms are negative Objective: Vital signs reviewed. Physical examination: General: non toxic, no distress, appears at stated age, normal weight Derm: no unusual rashes/lesions, warm Head: atraumatic, normocephalic, symmetric Eyes: EOMI, no lid lag, scleral icterus, pupils equal round reactive to light ENT: Nose and ears atraumatic Neck: No cervical lymphadenopathy, trachea midline, supple Mouth: no lip lesion, mucus membranes moist Cardiovascular: S1S2 reg, no murmur, positive dorsalis pedis pulse bilateral, no edema Lungs: Decreased breath sounds on the right base, no rhonchi, coarse crackles, no accessory muscle use Abdominal: soft, nontender to palpation, no guarding Ext: muscle strength 5 out of 5 in all 4 extremities grossly, no gross muscle atrophy, no contractures, Neuro: CN II-XI grossly intact, no gross focal neuro deficits Psych: Alert, oriented, appropriate affect Data reviewed today: Labs: WBC 9.0, hemoglobin 9.1, hematocrit 29.1, platelet count 147, sodium 128, potassium 5.7, chloride 94, BUN 59, creatinine 5.59, glucose 101, phosphorus 6.4, AST 153, ALT 96, albumin 3.2 CT abdomen and pelvis shows hepatosplenomegaly and small right pleural effusion. Assessment and Plan: Patient is a 58-year-old male with PMH of ESRD (on hemodialysis MWF), hypertension, hyperlipidemia and type 2 diabetes presented to the ED with complaints of generalized weakness and some shortness of breath and missed hemodialysis session. #ESRD on hemodialysis #Generalized weakness secondary to above #Hyperkalemia secondary to above #Normocytic anemia secondary to above #Hyponatremia secondary to above sodium 128, potassium 5.7, chloride 94, BUN 59, creatinine 5.59 phosphorus 6.4, magnesium 2.1 IV normal saline 20 cc/h Cardiac telemetry Nephrology consulted Monitor bmp Another session of HD today repeat BMP in am # Severe sepsis Suspected source: Pneumonia versus permacath versus intra-abdominal CT abdomen and pelvis shows small right pleural effusion. WBC 9.0 Continue with cefepime 1 g IVPB every 12 hours: Added vancomycin dosing per pharmacy Blood culture pending Repeat CBC in a.m. c/w IV normal saline at 20 cc/h; conservative fluid management secondary to ESRD and volume overload Pending results for sputum culture, blood culture, permacath culture Pending results for nares swab for screening MRSA Pending urinalysis with reflex to culture #Hypoglycemia Insulin pump is discontinued Continue monitor serum glucose level #Hypertension urgency Blood pressure 193/107 amlodipine 10 mg p.o. daily Carvedilol 25 mg p.o. twice daily Hydralazine 100 mg p.o. daily Imdur 30 mg p.o. daily Losartan 50 mg p.o. daily is d/c per nephrology Continue monitor blood pressure #Transaminitis AST 183, ALT 77, bilirubin 1.5 Monitor CMP #Chronic condition Type 2 diabetes: Insulin pump on hold Continue monitor serum glucose level Anxiety/depression: Resume fluoxetine 10 mg p.o. daily DVT prophylaxis: Heparin SQ every 8 F: IV normal saline at 20 cc/h E: Replete as needed N: Renal diet A: Fall precautions CODE STATUS: Full code Discussed with: Patient Anticipated discharge place: Pending clinical course I saw and evaluated the patient during the brar and critical portions of this encounter, and discussed the case in detail with the resident author of this note, I agree with the Assessment and Plan, and my changes, if any, are highlighted in blue. Objective - Vital Signs Vital signs: Vital Signs Temp 99.1 F 04/10/24 06:17 Pulse 56 L 04/10/24 12:00 Resp 18 04/10/24 12:00 BP 116/65 04/10/24 12:00 Pulse Ox 97 04/10/24 12:00 FiO2 Intake & Output 04/09/24 04/10/24 04/10/24 18:59 06:59 18:59 Intake Total 500 Output Total 4500 Balance -4000 Weight 81.647 kg Intake: Hemodialysis 500 Output: Hemodialysis 2500 Hemodialysis Net Amount 2000 - Labs CBC & Chem 7: 04/10/24 05:27 04/10/24 05:27 Labs: Abnormal Lab Results - Last 24 Hours (Table) 04/09/24 04/09/24 04/09/24 Range/Units 12:48 12:48 12:48 WBC 18.2 H (3.8-10.6) k/uL RBC 3.33 L (4.30-5.90) m/uL Hgb 10.2 L (13.0-17.5) gm/dL Hct 32.4 L (39.0-53.0) % RDW 19.6 H (11.5-15.5) % Plt Count (150-450) k/uL Neutrophils # 17.0 H (1.3-7.7) k/uL Lymphocytes # 0.4 L (1.0-4.8) k/uL PT 13.1 H (10.0-12.5) sec INR 1.2 H (<1.2) Sodium 130 L (137-145) mmol/L Potassium 7.5 H* (3.5-5.1) mmol/L Chloride 95 L (98-107) mmol/L BUN 77 H (9-20) mg/dL Creatinine 6.66 H (0.66-1.25) mg/dL Glucose (74-99) mg/dL POC Glucose (mg/dL) (70-110) mg/dL Plasma Lactic Acid Howard (0.7-2.0) mmol/L Phosphorus (2.5-4.5) mg/dL Total Bilirubin 1.5 H (0.2-1.3) mg/dL AST 183 H (17-59) U/L ALT 77 H (4-49) U/L Albumin (3.5-5.0) g/dL Procalcitonin (0.02-0.50) ng/mL 04/09/24 04/09/24 04/09/24 Range/Units 12:48 12:48 18:06 WBC (3.8-10.6) k/uL RBC (4.30-5.90) m/uL Hgb (13.0-17.5) gm/dL Hct (39.0-53.0) % RDW (11.5-15.5) % Plt Count (150-450) k/uL Neutrophils # (1.3-7.7) k/uL Lymphocytes # (1.0-4.8) k/uL PT (10.0-12.5) sec INR (<1.2) Sodium (137-145) mmol/L Potassium (3.5-5.1) mmol/L Chloride (98-107) mmol/L BUN (9-20) mg/dL Creatinine (0.66-1.25) mg/dL Glucose (74-99) mg/dL POC Glucose (mg/dL) 45 L* (70-110) mg/dL Plasma Lactic Acid Howard 2.3 H* (0.7-2.0) mmol/L Phosphorus (2.5-4.5) mg/dL Total Bilirubin (0.2-1.3) mg/dL AST (17-59) U/L ALT (4-49) U/L Albumin (3.5-5.0) g/dL Procalcitonin 10.80 H (0.02-0.50) ng/mL 04/09/24 04/09/24 04/10/24 Range/Units 18:07 19:34 05:27 WBC (3.8-10.6) k/uL RBC 2.91 L (4.30-5.90) m/uL Hgb 9.1 L (13.0-17.5) gm/dL Hct 29.1 L (39.0-53.0) % RDW 19.2 H (11.5-15.5) % Plt Count 147 L (150-450) k/uL Neutrophils # 8.2 H (1.3-7.7) k/uL Lymphocytes # 0.4 L (1.0-4.8) k/uL PT (10.0-12.5) sec INR (<1.2) Sodium (137-145) mmol/L Potassium 5.6 H (3.5-5.1) mmol/L Chloride (98-107) mmol/L BUN (9-20) mg/dL Creatinine (0.66-1.25) mg/dL Glucose (74-99) mg/dL POC Glucose (mg/dL) 58 L (70-110) mg/dL Plasma Lactic Acid Howard (0.7-2.0) mmol/L Phosphorus (2.5-4.5) mg/dL Total Bilirubin (0.2-1.3) mg/dL AST (17-59) U/L ALT (4-49) U/L Albumin (3.5-5.0) g/dL Procalcitonin (0.02-0.50) ng/mL 04/10/24 04/10/24 04/10/24 Range/Units 05:27 06:14 08:44 WBC (3.8-10.6) k/uL RBC (4.30-5.90) m/uL Hgb (13.0-17.5) gm/dL Hct (39.0-53.0) % RDW (11.5-15.5) % Plt Count (150-450) k/uL Neutrophils # (1.3-7.7) k/uL Lymphocytes # (1.0-4.8) k/uL PT (10.0-12.5) sec INR (<1.2) Sodium 128 L (137-145) mmol/L Potassium 5.7 H (3.5-5.1) mmol/L Chloride 94 L (98-107) mmol/L BUN 59 H (9-20) mg/dL Creatinine 5.59 H (0.66-1.25) mg/dL Glucose 55 L (74-99) mg/dL POC Glucose (mg/dL) 62 L 59 L (70-110) mg/dL Plasma Lactic Acid Howard (0.7-2.0) mmol/L Phosphorus 6.4 H (2.5-4.5) mg/dL Total Bilirubin (0.2-1.3) mg/dL AST 153 H (17-59) U/L ALT 96 H (4-49) U/L Albumin 3.2 L (3.5-5.0) g/dL Procalcitonin (0.02-0.50) ng/mL
--- NOTE | 2024-04-10 14:27 | P.NPCON ---
History of Present Illness - Reason for Consult Consult date: 04/10/24 - Chief Complaint SOB, Fevers - History of Present Illness Patient is a 58-year-old male with PMH of ESRD (on hemodialysis MWF), hypertension, hyperlipidemia and type 2 diabetes presented to the ED with complaints of generalized weakness and some shortness of breath. patient history is supplemented by who is present in the room. Patient states that he missed his dialysis session outpatient yesterday. patient states that he has not been feeling well for last 3 to 4 days. He has been spiking fever and have chills. He endorses mild nonproductive cough. Per , she she has never seen him this sick and is looking pale. Had HD in ED yesterday no issues. Feels that he could use another short session today. Feeling a bit better than yesterday. Vital signs are stable. General: No acute distress. HEENT: Head exam is unremarkable. LUNGS: No audible rhonchi or wheezes. HEART: Rate and Rhythm are regular. ABDOMEN: Nontender. EXTREMITITES: No edema. Review of Systems Constitutional: Reports as per HPI Past Medical History Past Medical History: Diabetes Mellitus, Dialysis, Hyperlipidemia, Hypertension, Renal Disease Additional Past Medical History / Comment(s): IDDM type I on insulin pump, DKA, chronic kidney disease, bilateral lower extremity edema. peritoneal dialysis History of Any Multi-Drug Resistant Organisms: None Reported Past Surgical History: No Surgical Hx Reported Additional Past Surgical History / Comment(s): R knee arthroscopy, circumcism, HD cath in chest Past Anesthesia/Blood Transfusion Reactions: No Reported Reaction Past Psychological History: No Psychological Hx Reported Smoking Status: Former smoker Past Alcohol Use History: None Reported Past Drug Use History: None Reported - Past Family History Mother History Unknown: Yes Family Medical History: COPD Father Family Medical History: No Reported History Additional Family Medical History / Comment(s): Mother is healthy. Medications and Allergies Home Medications Medication Instructions Recorded Confirmed Type Insulin Aspart (For Pump) [NovoLOG 0.01 unit SQ-PUMP CONTINUOUS MDD 02/21/23 04/09/24 History (For Pump)] 100 units FLUoxetine HCL [PROzac] 10 mg PO DAILY 07/14/23 04/09/24 History Atorvastatin [Lipitor] 20 mg PO DAILY 11/14/23 04/09/24 History Folic Acid/Vit B Complex and C 0.8 mg PO DAILY 11/14/23 04/09/24 History [Lilian-Marsha Tablet] Ondansetron Odt [Zofran ODT] 4 mg PO Q6H PRN 11/14/23 04/09/24 History amLODIPine [Norvasc] 10 mg PO DAILY 11/14/23 04/09/24 History hydrALAZINE HCL [Apresoline] 100 mg PO TID 11/14/23 04/09/24 History Aspirin 81 mg PO DAILY 30 Days #30 tab 11/28/23 04/09/24 Rx Torsemide [Demadex] 100 mg PO DAILY 02/09/24 04/09/24 History Isosorbide Mononitrate ER [Imdur] 30 mg PO DAILY 04/09/24 04/09/24 History Losartan [Cozaar] 50 mg PO DAILY 04/09/24 04/09/24 History carvediloL [Coreg] 25 mg PO BID 04/09/24 04/09/24 History methocarbamoL 750 mg PO Q4H PRN 04/09/24 04/09/24 History Allergies Allergy/AdvReac Type Severity Reaction Status Date / Time Iodinated Contrast Media Allergy Anaphylaxis Verified 04/09/24 14:44 Physical Exam Vitals: Vital Signs Temp Pulse Pulse Resp BP BP Pulse Ox 04/10/24 08:00 64 18 155/98 95 04/10/24 06:17 99.1 F 66 17 156/90 99 04/10/24 02:34 69 17 163/102 100 04/10/24 01:03 69 18 169/98 99 04/09/24 22:41 74 19 171/97 98 04/09/24 21:19 97.7 F 92 24 186/102 04/09/24 19:55 87 18 168/111 94 L 04/09/24 18:54 86 18 170/90 94 L 04/09/24 18:07 97.9 F 04/09/24 16:12 185/108 04/09/24 16:11 100.1 F H 74 18 90 L 04/09/24 15:50 76 04/09/24 15:45 96 04/09/24 15:39 71 04/09/24 11:47 100.5 F H 83 16 193/107 96 Intake and Output 0904/10/24 04/10/24 22:59 06:59 14:59 Intake Total 500 Output Total 4500 Balance -4000 Intake: Hemodialysis 500 Output: Hemodialysis 2500 Hemodialysis Net Amount 1999 Results - Lab Results Most recent lab results Calcium 8.5 mg/dL (8.4-10.2) 04/10/24 05:27 Phosphorus 6.4 mg/dL (2.5-4.5) H 04/10/24 05:27 Magnesium 2.1 mg/dL (1.6-2.3) 04/10/24 05:27 04/10/24 05:27 04/10/24 05:27 Assessment and Plan Assessment: 1. End-stage renal disease on HD MWF at [facility] 2. Fevers, concern for sepsis. 3. Hypertension with chronic kidney disease. 4. Diabetes mellitus. 5. Chronic kidney disease mineral bone disease. 6. Hyperkalemia due to missed HD. Plan: HD completed yesterday. Again today as yesterday was short treatment and potassium high. Await cultures. Potassium management with HD. Continue with ABX If concern for Permcath infection would need line holiday and HD with Temo temporarily. Can continue Lokelma 10g daily. Will hold Losartan given high K.
[2024-04-10] MEDS: methocarbamoL 750 MG TAB PO PRN (15:05)
[2024-04-10 17:09] LABS: Glucose,Whole Blood 267 mg/dL (70-110)
[2024-04-10] MEDS: VANCOMYCIN 1,500 MG in SODIUM CHLORIDE 0.9% 500 ML 500 ML IVPB ONE (17:33)
[2024-04-10] MEDS: INSULIN ASPART (NovoLOG) 100 UNIT/ML VIAL SQ SCH (17:33)
[2024-04-10 18:58] LABS: Appearance,Urine Clear (Clear); Bilirubin,Urine Negative (Negative); Blood,Urine Negative (Negative); Color,Urine Yellow; Glucose,Urine (UA) 3+ (Negative); Ketones,Urine Trace (Negative); Leukocyte Esterase,Urine Negative (Negative); Mucus,Urine Rare /hpf; Nitrite,Urine Negative (Negative); Protein,Urine 2+ (Negative); RBC,Urine 2 /hpf (0-5); Specific Gravity,Urine 1.011 (1.001-1.035); Squamous Epithelial Cell,Urine 1 /hpf (0-4); Urobilinogen,Urine <2.0 mg/dL (<2.0); WBC,Urine 1 /hpf (0-5)
[2024-04-10 20:36] LABS: Glucose,Whole Blood 221 mg/dL (70-110)
[2024-04-10 20:36] LABS: Glucose,Whole Blood 246 mg/dL (70-110)
[2024-04-11 06:08] LABS: Glucose,Whole Blood 365 mg/dL (70-110)
[2024-04-11] MEDS: PANTOPRAZOLE 40 MG TABLET PO SCH (06:14)
[2024-04-11 08:14] LABS: Anisocytosis Slight; Basophils % (A) 0 %; Eosinophils # (A) 0.3 k/uL (0-0.7); Eosinophils % (A) 5 %; HCT 29.2 % (39.0-53.0); HGB 8.5 gm/dL (13.0-17.5); Hypochromasia Marked; Lymphocytes # (A) 0.3 k/uL (1.0-4.8); Lymphocytes % (A) 5 %; MCH 29.8 pg (25.0-35.0); MCHC 29.3 g/dL (31.0-37.0); MCV 101.8 fL (80.0-100.0); Macrocytosis Moderate; Monocytes # (A) 0.3 k/uL (0-1.0); Monocytes % (A) 6 %; Neutrophils # (A) 4.6 k/uL (1.3-7.7); Neutrophils % (A) 82 %; Platelet Count 176 k/uL (150-450); RBC 2.87 m/uL (4.30-5.90); RDW 18.3 % (11.5-15.5); WBC 5.6 k/uL (3.8-10.6)
[2024-04-11 08:46] LABS: African American GFR (CKD) 13 (>60 ml/min/1.73 sqM); Anion Gap 15 mmol/L; Blood Urea Nitrogen 56 mg/dL (9-20); Calcium 7.6 mg/dL (8.4-10.2); Carbon Dioxide 19 mmol/L (22-30); Chloride 93 mmol/L (98-107); Glucose 366 mg/dL (74-99); Non-African American GFR(CKD) 11 (>60 ml/min/1.73 sqM); Potassium 5.1 mmol/L (3.5-5.1); Sodium 127 mmol/L (137-145)
[2024-04-11 11:29] LABS: Glucose,Whole Blood 411 mg/dL (70-110)
--- NOTE | 2024-04-11 11:50 | P.PN ---
Subjective Progress Note Date: 04/11/24 Patient seen in follow-up for ESRD. Feeling better over all and no new complaints. Tolerated HD yesterday without issue. Vital signs are stable. General: No acute distress. HEENT: Head exam is unremarkable. LUNGS: No audible rhonchi or wheezes. HEART: Rate and Rhythm are regular. ABDOMEN: Nontender. EXTREMITITES: No edema. Objective - Vital Signs Vital signs: Vital Signs Temp 98.3 F 04/10/24 23:52 Pulse 66 04/11/24 04:00 Resp 16 04/11/24 04:00 BP 138/66 04/11/24 04:00 Pulse Ox 95 04/11/24 08:48 FiO2 Intake & Output 04/10/24 04/11/24 04/11/24 18:59 06:59 18:59 Intake Total 118 400 358 Output Total 4400 Balance 118 -4000 358 Weight 81.647 kg 86 kg Intake: Oral 118 358 Hemodialysis 400 Output: Hemodialysis 2400 Hemodialysis Net Amount 2000 - Labs CBC & Chem 7: 04/11/24 06:49 04/11/24 06:49 Labs: Abnormal Lab Results - Last 24 Hours (Table) 04/10/24 04/10/24 04/10/24 Range/Units 17:07 18:30 20:19 RBC (4.30-5.90) m/uL Hgb (13.0-17.5) gm/dL Hct (39.0-53.0) % MCV (80.0-100.0) fL MCHC (31.0-37.0) g/dL RDW (11.5-15.5) % Lymphocytes # (1.0-4.8) k/uL Sodium (137-145) mmol/L Chloride (98-107) mmol/L Carbon Dioxide (22-30) mmol/L BUN (9-20) mg/dL Creatinine (0.66-1.25) mg/dL Glucose (74-99) mg/dL POC Glucose (mg/dL) 267 H 221 H (70-110) mg/dL Calcium (8.4-10.2) mg/dL Urine Protein 2+ H (Negative) Urine Glucose (UA) 3+ H (Negative) Urine Ketones Trace H (Negative) Urine Mucus Rare H (None) /hpf 04/10/24 04/11/2424 Range/Units 20:21 06:03 06:49 RBC 2.87 L (4.30-5.90) m/uL Hgb 8.5 L (13.0-17.5) gm/dL Hct 29.2 L (39.0-53.0) % MCV 101.8 H (80.0-100.0) fL MCHC 29.3 L (31.0-37.0) g/dL RDW 18.3 H (11.5-15.5) % Lymphocytes # 0.3 L (1.0-4.8) k/uL Sodium (137-145) mmol/L Chloride (98-107) mmol/L Carbon Dioxide (22-30) mmol/L BUN (9-20) mg/dL Creatinine (0.66-1.25) mg/dL Glucose (74-99) mg/dL POC Glucose (mg/dL) 246 H 365 H (70-110) mg/dL Calcium (8.4-10.2) mg/dL Urine Protein (Negative) Urine Glucose (UA) (Negative) Urine Ketones (Negative) Urine Mucus (None) /hpf 04/11/24 Range/Units 06:49 RBC (4.30-5.90) m/uL Hgb (13.0-17.5) gm/dL Hct (39.0-53.0) % MCV (80.0-100.0) fL MCHC (31.0-37.0) g/dL RDW (11.5-15.5) % Lymphocytes # (1.0-4.8) k/uL Sodium 127 L (137-145) mmol/L Chloride 93 L (98-107) mmol/L Carbon Dioxide 19 L (22-30) mmol/L BUN 56 H (9-20) mg/dL Creatinine 5.29 H (0.66-1.25) mg/dL Glucose 366 H (74-99) mg/dL POC Glucose (mg/dL) (70-110) mg/dL Calcium 7.6 L (8.4-10.2) mg/dL Urine Protein (Negative) Urine Glucose (UA) (Negative) Urine Ketones (Negative) Urine Mucus (None) /hpf Microbiology - Last 24 Hours (Table) 09/20/24 12:48 Blood Culture - Preliminary Blood Assessment and Plan Assessment: 1. End-stage renal disease on HD MWF at [facility] 2. Fevers, concern for sepsis. 3. Hypertension with chronic kidney disease. 4. Diabetes mellitus. 5. Chronic kidney disease mineral bone disease. 6. Hyperkalemia due to missed HD improved. Plan: Continue HD MWF schedule Preliminary blood cultures show no growth. Potassium management with HD. Continue with ABX If cultures remains negative clear for discharge from nephrology standpoint
[2024-04-11] MEDS ORDERED: INSULIN PUMP BASAL RATES 1 EACH MISC MISCELLANE PRN (11:55)
[2024-04-11] MEDS ORDERED: INSPUCOR MISCELLANE PRN (11:55)
--- NOTE | 2024-04-11 11:56 | P.PN ---
Subjective Progress Note Date: 04/11/24 Hospital course: Patient is a 58-year-old male with PMH of ESRD (on hemodialysis MWF), hypertension, hyperlipidemia and type 2 diabetes presented to the ED with complaints of generalized weakness and some shortness of breath. patient history is supplemented by who is present in the room. Patient states that he missed his dialysis session today. patient states that he has not been feeling well for last 3 to 4 days. He has been spiking fever and have chills. He endorses mild nonproductive cough. Per , she she has never seen him this sick and is looking pale. Patient is not complaining of any chest pain, abdominal pain, nausea, vomiting or numbness or tingling in upper or lower extremities. Patient states that he produces small amounts of urine. He is not complaining of any dysuria or hematuria. Chest x-ray done in the ER remarkable for cardiomegaly and mild pulmonary vascular congestion. EKG shows sinus rhythm with tall T waves in V3, V4, V5, V6. Laboratory evaluation in the ED shows WBC 18.2 with neutrophil count of 17.0, hemoglobin 10.2, hematocrit 32.4, platelet count 200, APTT 29.9, INR 1.2, sodium 130, potassium 7.5, chloride 95, BUN 77, creatinine 6.66, lactic acid 2.3, total bili 1.5, AST 183, ALT 77. CT abdomen and pelvis shows hepatosplenomegaly and small right pleural effusion. Patient was admitted for concerns regarding sepsis as well as hyperkalemia. Nephrology consulted. Patient was given session of dialysis. Potassium level is mildly improved. White cell count trending downward. Patient continues on IV antibiotic for empiric coverage. Subjective: Patient seen and examined at the bedside. Patient had a hypoglycemic event. Blood glucose level was 59. Patient was given some juice and amp of D50 W. Glucose level improved to 107. All Systems reviewed and pertinent positives and negatives noted in HPI, all other symptoms are negative Objective: Vital signs reviewed. Physical examination: General: non toxic, no distress, appears at stated age, normal weight Derm: no unusual rashes/lesions, warm Head: atraumatic, normocephalic, symmetric Eyes: EOMI, no lid lag, scleral icterus, pupils equal round reactive to light ENT: Nose and ears atraumatic Neck: No cervical lymphadenopathy, trachea midline, supple Mouth: no lip lesion, mucus membranes moist Cardiovascular: S1S2 reg, no murmur, positive dorsalis pedis pulse bilateral, no edema Lungs: Decreased breath sounds on the right base, no rhonchi, coarse crackles, no accessory muscle use Abdominal: soft, nontender to palpation, no guarding Ext: muscle strength 5 out of 5 in all 4 extremities grossly, no gross muscle atrophy, no contractures, Neuro: CN II-XI grossly intact, no gross focal neuro deficits Psych: Alert, oriented, appropriate affect Data reviewed today: Labs: WBC 9.0, hemoglobin 9.1, hematocrit 29.1, platelet count 147, sodium 128, potassium 5.7, chloride 94, BUN 59, creatinine 5.59, glucose 101, phosphorus 6.4, AST 153, ALT 96, albumin 3.2 CT abdomen and pelvis shows hepatosplenomegaly and small right pleural effusion. Assessment and Plan: Patient is a 58-year-old male with PMH of ESRD (on hemodialysis MWF), hypertension, hyperlipidemia and type 2 diabetes presented to the ED with complaints of generalized weakness and some shortness of breath and missed hemodialysis session. #ESRD on hemodialysis #Generalized weakness secondary to above #Hyperkalemia secondary to above #Normocytic anemia secondary to above #Hyponatremia secondary to above sodium 128, potassium 5.7, chloride 94, BUN 59, creatinine 5.59 phosphorus 6.4, magnesium 2.1 IV normal saline 20 cc/h Cardiac telemetry Nephrology consulted Monitor bmp Another session of HD today repeat BMP in am # Severe sepsis Suspected source: Pneumonia versus intra-abdominal CT abdomen and pelvis shows small right pleural effusion. WBC 9.0 Continue with cefepime 1 g IVPB every 12 hours: Added vancomycin dosing per pharmacy Blood culture NGTD Repeat CBC in a.m. c/w IV normal saline at 20 cc/h; conservative fluid management secondary to ESRD and volume overload Results for blood culture, permacath culture = NGTD Pending results for nares swab for screening MRSA UA negative for infx #Hypoglycemia, resolved #Type II DM with hyperglycemia Insulin pump is resumed today Continue monitor serum glucose level #Hypertension urgency Blood pressure 193/107 amlodipine 10 mg p.o. daily Carvedilol 25 mg p.o. twice daily Hydralazine 100 mg p.o. daily Imdur 30 mg p.o. daily Losartan 50 mg p.o. daily is d/c per nephrology Continue monitor blood pressure #Transaminitis AST 183, ALT 77, bilirubin 1.5 Monitor CMP #Chronic condition Type 2 diabetes: Insulin pump Continue monitor serum glucose level Anxiety/depression: Resume fluoxetine 10 mg p.o. daily DVT prophylaxis: Heparin SQ every 8 F: IV normal saline at 20 cc/h E: Replete as needed N: Renal diet A: Fall precautions CODE STATUS: Full code Discussed with: Patient Anticipated discharge place: Pending clinical course Objective - Vital Signs Vital signs: Vital Signs Temp 98 F 04/11/24 09:40 Pulse 65 04/11/24 09:40 Resp 14 04/11/24 09:40 BP 159/78 04/11/24 09:40 Pulse Ox 92 L 04/11/24 09:40 FiO2 Intake & Output 04/10/24 04/11/24 04/11/24 18:59 06:59 18:59 Intake Total 118 400 358 Output Total 4400 Balance 118 -4000 358 Weight 81.647 kg 86 kg Intake: Oral 118 358 Hemodialysis 400 Output: Hemodialysis 2400 Hemodialysis Net Amount 2000 - Labs CBC & Chem 7: 04/11/24 06:49 04/11/24 06:49 Labs: Abnormal Lab Results - Last 24 Hours (Table) 04/10/24 04/10/24 04/10/24 Range/Units 17:07 18:30 20:19 RBC (4.30-5.90) m/uL Hgb (13.0-17.5) gm/dL Hct (39.0-53.0) % MCV (80.0-100.0) fL MCHC (31.0-37.0) g/dL RDW (11.5-15.5) % Lymphocytes # (1.0-4.8) k/uL Sodium (137-145) mmol/L Chloride (98-107) mmol/L Carbon Dioxide (22-30) mmol/L BUN (9-20) mg/dL Creatinine (0.66-1.25) mg/dL Glucose (74-99) mg/dL POC Glucose (mg/dL) 267 H 221 H (70-110) mg/dL Calcium (8.4-10.2) mg/dL Urine Protein 2+ H (Negative) Urine Glucose (UA) 3+ H (Negative) Urine Ketones Trace H (Negative) Urine Mucus Rare H (None) /hpf 04/10/24 04/11/24 04/11/24 Range/Units 20:21 06:03 06:49 RBC 2.87 L (4.30-5.90) m/uL Hgb 8.5 L (13.0-17.5) gm/dL Hct 29.2 L (39.0-53.0) % MCV 101.8 H (80.0-100.0) fL MCHC 29.3 L (31.0-37.0) g/dL RDW 18.3 H (11.5-15.5) % Lymphocytes # 0.3 L (1.0-4.8) k/uL Sodium (137-145) mmol/L Chloride (98-107) mmol/L Carbon Dioxide (22-30) mmol/L BUN (9-20) mg/dL Creatinine (0.66-1.25) mg/dL Glucose (74-99) mg/dL POC Glucose (mg/dL) 246 H 365 H (70-110) mg/dL Calcium (8.4-10.2) mg/dL Urine Protein (Negative) Urine Glucose (UA) (Negative) Urine Ketones (Negative) Urine Mucus (None) /hpf 04/11/24 04/11/24 Range/Units 06:49 11:27 RBC (4.30-5.90) m/uL Hgb (13.0-17.5) gm/dL Hct (39.0-53.0) % MCV (80.0-100.0) fL MCHC (31.0-37.0) g/dL RDW (11.5-15.5) % Lymphocytes # (1.0-4.8) k/uL Sodium 127 L (137-145) mmol/L Chloride 93 L (98-107) mmol/L Carbon Dioxide 19 L (22-30) mmol/L BUN 56 H (9-20) mg/dL Creatinine 5.29 H (0.66-1.25) mg/dL Glucose 366 H (74-99) mg/dL POC Glucose (mg/dL) 411 H (70-110) mg/dL Calcium 7.6 L (8.4-10.2) mg/dL Urine Protein (Negative) Urine Glucose (UA) (Negative) Urine Ketones (Negative) Urine Mucus (None) /hpf Microbiology - Last 24 Hours (Table) 04/09/24 12:48 Blood Culture - Preliminary Blood
[2024-04-11] MEDS: VANCOMYCIN 1,500 MG in SODIUM CHLORIDE 0.9% 500 ML 500 ML IVPB ONE (12:07)
[2024-04-11] MEDS: INSULIN PUMP MEAL BOLUS 1 UNIT MISC MISCELLANE SCH (12:08)
[2024-04-11 16:26] LABS: Glucose,Whole Blood 424 mg/dL (70-110)
[2024-04-11 20:06] LABS: Glucose,Whole Blood 300 mg/dL (70-110)
[2024-04-12 03:01] LABS: Glucose,Whole Blood 167 mg/dL (70-110)
[2024-04-12 06:08] LABS: Glucose,Whole Blood 216 mg/dL (70-110)
[2024-04-12 06:11] LABS: Anisocytosis Slight; Basophils % (A) 0 %; Eosinophils # (A) 0.7 k/uL (0-0.7); Eosinophils % (A) 13 %; HCT 27.9 % (39.0-53.0); HGB 8.2 gm/dL (13.0-17.5); Hypochromasia Marked; Lymphocytes # (A) 0.6 k/uL (1.0-4.8); Lymphocytes % (A) 11 %; MCH 28.9 pg (25.0-35.0); MCHC 29.4 g/dL (31.0-37.0); MCV 98.1 fL (80.0-100.0); Macrocytosis Slight; Mean Platelet Volume 7.9; Monocytes # (A) 0.4 k/uL (0-1.0); Monocytes % (A) 8 %; Neutrophils # (A) 3.3 k/uL (1.3-7.7); Neutrophils % (A) 64 %; Platelet Count 174 k/uL (150-450); RBC 2.84 m/uL (4.30-5.90); RDW 18.4 % (11.5-15.5); WBC 5.2 k/uL (3.8-10.6)
[2024-04-12 06:28] LABS: African American GFR (CKD) 10 (>60 ml/min/1.73 sqM); Anion Gap 8 mmol/L; Blood Urea Nitrogen 77 mg/dL (9-20); Calcium 7.6 mg/dL (8.4-10.2); Carbon Dioxide 23 mmol/L (22-30); Chloride 96 mmol/L (98-107); Glucose 182 mg/dL (74-99); Magnesium 2.1 mg/dL (1.6-2.3); Non-African American GFR(CKD) 9 (>60 ml/min/1.73 sqM); Sodium 127 mmol/L (137-145)
[2024-04-12 06:33] LABS: Vancomycin,Random 23.2 ug/mL
[2024-04-12 10:27] VITALS: TEMP 97.8
--- NOTE | 2024-04-12 11:02 | P.PN ---
Subjective Patient seen at bedside. No significant overnight events. Nephrology consulted for hyperkalemia. Potassium has improved every day since admission with consistent dialysis after patient previously missed dialysis. Potassium decreased from 5.1 to 5.0 today. Objective - Vital Signs Vital signs: Vital Signs Temp 98.2 F 04/12/24 03:03 Pulse 59 L 04/12/24 03:03 Resp 16 04/12/24 03:03 BP 153/82 04/12/24 03:03 Pulse Ox 96 04/12/24 07:59 FiO2 Intake & Output 04/11/24 04/12/24 04/12/24 18:59 06:59 18:59 Intake Total 1864 Balance 1864 Weight 89.4 kg Intake: Intake, IV Titration 550 Amount Cefepime 1 gm In Sodium 50 Chloride 0.9% 50 ml @ 12. 5 mls/hr IVPB Q12H COUNTS INCLUDE 234 BEDS AT THE [facility] Rx #:[id number] Vancomycin 1,500 mg In 500 Sodium Chloride 0.9% 500 ml 500 ml @ 167 mls/hr IVPB ONCE ONE Rx#: [id number] Oral 1314 Other: # Voids 1 0 2 - Exam General: non toxic, no distress, appears at stated age, normal weight Cardiovascular: S1S2 reg, no murmur, positive dorsalis pedis pulse bilateral, no edema Lungs: Decreased breath sounds on the right base, no rhonchi, coarse crackles, no accessory muscle use Abdominal: soft, nontender to palpation, no guarding - Labs CBC & Chem 7: 04/12/24 05:37 04/12/24 05:37 Labs: Abnormal Lab Results - Last 24 Hours (Table) 04/11/24 04/11/24 04/11/24 Range/Units 11:27 16:25 20:05 RBC (4.30-5.90) m/uL Hgb (13.0-17.5) gm/dL Hct (39.0-53.0) % MCHC (31.0-37.0) g/dL RDW (11.5-15.5) % Lymphocytes # (1.0-4.8) k/uL Sodium (137-145) mmol/L Chloride (98-107) mmol/L BUN (9-20) mg/dL Creatinine (0.66-1.25) mg/dL Glucose (74-99) mg/dL POC Glucose (mg/dL) 411 H 424 H 300 H (70-110) mg/dL Calcium (8.4-10.2) mg/dL 04/12/24 04/12/24 04/12/24 Range/Units 02:59 05:37 05:37 RBC 2.84 L (4.30-5.90) m/uL Hgb 8.2 L (13.0-17.5) gm/dL Hct 27.9 L (39.0-53.0) % MCHC 29.4 L (31.0-37.0) g/dL RDW 18.4 H (11.5-15.5) % Lymphocytes # 0.6 L (1.0-4.8) k/uL Sodium 127 L (137-145) mmol/L Chloride 96 L (98-107) mmol/L BUN 77 H (9-20) mg/dL Creatinine 6.38 H (0.66-1.25) mg/dL Glucose 182 H (74-99) mg/dL POC Glucose (mg/dL) 167 H (70-110) mg/dL Calcium 7.6 L (8.4-10.2) mg/dL 04/12/24 Range/Units 06:07 RBC (4.30-5.90) m/uL Hgb (13.0-17.5) gm/dL Hct (39.0-53.0) % MCHC (31.0-37.0) g/dL RDW (11.5-15.5) % Lymphocytes # (1.0-4.8) k/uL Sodium (137-145) mmol/L Chloride (98-107) mmol/L BUN (9-20) mg/dL Creatinine (0.66-1.25) mg/dL Glucose (74-99) mg/dL POC Glucose (mg/dL) 216 H (70-110) mg/dL Calcium (8.4-10.2) mg/dL Microbiology - Last 24 Hours (Table) 04/10/24 20:00 Nasal Screen MRSA/MSSA - Final Nasal Swab 04/09/24 12:48 Blood Culture - Preliminary Blood Assessment and Plan Assessment: 1. End-stage renal disease on HD MWF at [facility] 2. Fevers, concern for sepsis. MRSA nasal swab negative, preliminary blood cultures from (04/09) show no growth after 48 hours 3. Hypertension with chronic kidney disease. 4. Diabetes mellitus. 5. Chronic kidney disease mineral bone disease. 6. Hyperkalemia due to missed HD improved. 7. Anemia of chronic disease Plan: Continue HD MWF schedule Ordered Aranesp 40 once weekly Challenge ultrafiltration 3.5-4.5 L, will do extra treatment if patient stays another day Preliminary blood cultures show no growth. Potassium management with HD. Check phosphorus Continue with ABX clear for discharge from nephrology standpoint discussed ID eval with primary I have seen and examined the patient with resident and agree with A&P as written. Seen while on HD. BP partially volume sensitive - challenge UF. Stressed compliance with meds/HD tx outpatient multiple times.
[2024-04-12 11:33] LABS: Glucose,Whole Blood 231 mg/dL (70-110)
[2024-04-12 11:53] VITALS: BP 163/75; PULSE 63; RESP 17
--- NOTE | 2024-04-12 14:00 | P.DS ---
Providers Date of admission: 04/09/24 14:52 Attending physician: Raine Graves MD Consults: 04/09/24 14:42 Consult Physician Urgent Consulting Provider: Sheba Shaffer Consult Reason/Comments: hyperkalemia Do you want consulting provider notified?: Yes Primary care physician: Devon Mattson Hospital Course: Discharge diagnoses; #ESRD on hemodialysis #Generalized weakness secondary to above #Hyperkalemia secondary to above #Normocytic anemia secondary to above #Hyponatremia secondary to above # Severe sepsis secondary community-acquired pneumonia #Transaminitis Hospital course; Patient is a 58-year-old male with PMH of ESRD (on hemodialysis MWF), hypertension, hyperlipidemia and type 2 diabetes presented to the ED with complaints of generalized weakness and some shortness of breath. patient history is supplemented by who is present in the room. Patient states that he missed his dialysis session today. patient states that he has not been feeling well for last 3 to 4 days. He has been spiking fever and have chills. He endorses mild nonproductive cough. Per , she she has never seen him this sick and is looking pale. Patient is not complaining of any chest pain, abdominal pain, nausea, vomiting or numbness or tingling in upper or lower extremities. Patient states that he produces small amounts of urine. He is not complaining of any dysuria or hematuria. Chest x-ray done in the ER remarkable for cardiomegaly and mild pulmonary vascular congestion. EKG shows sinus rhythm with tall T waves in V3, V4, V5, V6. Laboratory evaluation in the ED shows WBC 18.2 with neutrophil count of 17.0, hemoglobin 10.2, hematocrit 32.4, platelet count 200, APTT 29.9, INR 1.2, sodium 130, potassium 7.5, chloride 95, BUN 77, creatinine 6.66, lactic acid 2.3, total bili 1.5, AST 183, ALT 77. CT abdomen and pelvis shows hepatosplenomegaly and small right pleural effusion. Patient was admitted for concerns regarding sepsis as well as hyperkalemia. Nephrology consulted. Patient was given session of dialysis. Potassium level is mildly improved. White cell count trending downward. It was felt that patient's initial presentation of sepsis was secondary to community acquired pneumonia due to what appeared to be retrocardiac opacity on chest x-ray with increased congestion, mild hypoxemic respiratory failure, fevers, elevated procalcitonin. Therefore, patient was discharged on cefdinir for an additional 2 days to complete a 5-day course for community-acquired pneumonia. Discharge Labs: WBC 5.2, hemoglobin 8.2, hematocrit 27.9, platelet count 174, sodium 127, potassium 5.0, chloride 23, BUN 77, creatinine 6.38, glucose 182, magnesium 2.1, AST 152, ALT 96, bilirubin 1.5 CT abdomen and pelvis shows hepatosplenomegaly and small right pleural effusion. Patient received dialysis while inpatient. Removed 3 L on 04/12. Patient found to have Pneumonia and treated with cefepime for 3 days and will continue with cefdinir for 2 days on d/c. On discharge patient to follow-up with nephrology and continue dialysis. Patient to follow-up with PCP. Patient is discharged and is stable. PHYSICAL EXAMINATION: Physical examination: General: non toxic, no distress, appears at stated age, normal weight Derm: no unusual rashes/lesions, warm Head: atraumatic, normocephalic, symmetric Eyes: EOMI, no lid lag, scleral icterus, pupils equal round reactive to light ENT: Nose and ears atraumatic Neck: No cervical lymphadenopathy, trachea midline, supple Mouth: no lip lesion, mucus membranes moist Cardiovascular: S1S2 reg, no murmur, positive dorsalis pedis pulse bilateral, no edema Lungs: Decreased breath sounds on the right base, no rhonchi, coarse crackles, no accessory muscle use Abdominal: soft, nontender to palpation, no guarding Ext: muscle strength 5 out of 5 in all 4 extremities grossly, no gross muscle atrophy, no contractures, Neuro: CN II-XI grossly intact, no gross focal neuro deficits Psych: Alert, oriented, appropriate affect Dictation was produced using [employer] dictation software. please excuse any grammatical, word or spelling errors. I saw and evaluated the patient during the brar and critical portions of this encounter, and discussed the case in detail with the resident author of this note, I agree with the Assessment and Plan, and my changes, if any, are highlighted in blue. Patient Condition at Discharge: Stable Plan - Discharge Summary Discharge Rx Participant: No New Discharge Prescriptions: New Cefdinir 300 mg PO BID #4 cap Continue Insulin Aspart (For Pump) [NovoLOG (For Pump)] 0.01 unit SQ-PUMP CONTINUOUS MDD 100 units FLUoxetine HCL [PROzac] 10 mg PO DAILY Atorvastatin [Lipitor] 20 mg PO DAILY Folic Acid/Vit B Complex and C [Lilian-Marsha Tablet] 0.8 mg PO DAILY Aspirin 81 mg PO DAILY 30 Days #30 tab Torsemide [Demadex] 100 mg PO DAILY carvediloL [Coreg] 25 mg PO BID Isosorbide Mononitrate ER [Imdur] 30 mg PO DAILY Losartan [Cozaar] 50 mg PO DAILY methocarbamoL 750 mg PO Q4H PRN PRN Reason: Muscle Spasm hydrALAZINE HCL [Apresoline] 100 mg PO TID amLODIPine [Norvasc] 10 mg PO DAILY Ondansetron Odt [Zofran ODT] 4 mg PO Q6H PRN PRN Reason: Nausea And Vomiting Discharge Medication List Insulin Aspart (For Pump) [NovoLOG (For Pump)] 0.01 unit SQ-PUMP CONTINUOUS MDD 100 units 02/21/23 [History] FLUoxetine HCL [PROzac] 10 mg PO DAILY 07/14/23 [History] Atorvastatin [Lipitor] 20 mg PO DAILY 11/14/23 [History] Folic Acid/Vit B Complex and C [Lilian-Marsha Tablet] 0.8 mg PO DAILY 11/14/23 [History] Ondansetron Odt [Zofran ODT] 4 mg PO Q6H PRN 11/14/23 [History] amLODIPine [Norvasc] 10 mg PO DAILY 11/14/23 [History] hydrALAZINE HCL [Apresoline] 100 mg PO TID 11/14/23 [History] Aspirin 81 mg PO DAILY 30 Days #30 tab 11/28/23 [Rx] Torsemide [Demadex] 100 mg PO DAILY 02/09/24 [History] Isosorbide Mononitrate ER [Imdur] 30 mg PO DAILY 04/09/24 [History] Losartan [Cozaar] 50 mg PO DAILY 04/09/24 [History] carvediloL [Coreg] 25 mg PO BID 04/09/24 [History] methocarbamoL 750 mg PO Q4H PRN 04/09/24 [History] Cefdinir 300 mg PO BID #4 cap 04/12/24 [Rx] Follow up Appointment(s)/Referral(s): Devon Mattson MD [Primary Care Provider] - 1-2 days Discharge Disposition: HOME SELF-CARE
[2024-04-12] MEDS: DARBEPOETIN ALFA 40 MCG/0.4 ML SYRINGE SQ SCH (14:21)
[2024-04-13] MEDS ORDERED: VANCOMYCIN 1,500 MG in SODIUM CHLORIDE 0.9% 500 ML 500 ML IVPB ONE (08:00)
== END 2024-04-12 15:22 | disposition home or self-care (01) | DRG 871 ==
LOC: EC 11:43 → 3SCARD 14:52
PROVIDERS: ADMIT Internal Medicine; ATTEND Internal Medicine
DX: A41.9 Sepsis, unspecified organism (principal); J18.9 Pneumonia, unspecified organism; N18.6 End stage renal disease; E87.1 Hypo-osmolality and hyponatremia; I13.11 Hypertensive heart and chronic kidney disease without heart failure, with stage 5 chronic kidney disease, or end stage renal disease; R65.20 Severe sepsis without septic shock; E11.649 Type 2 diabetes mellitus with hypoglycemia without coma; D63.1 Anemia in chronic kidney disease; E11.22 Type 2 diabetes mellitus with diabetic chronic kidney disease; F32.A Depression, unspecified; Z99.2 Dependence on renal dialysis; E11.65 Type 2 diabetes mellitus with hyperglycemia; E78.5 Hyperlipidemia, unspecified; E87.5 Hyperkalemia; I16.0 Hypertensive urgency; F41.9 Anxiety disorder, unspecified; M89.8X9 Other specified disorders of bone, unspecified site; Z96.41 Presence of insulin pump (external) (internal); Z79.4 Long term (current) use of insulin; Z79.82 Long term (current) use of aspirin; Z79.899 Other long term (current) drug therapy; Z87.891 Personal history of nicotine dependence; Z82.5 Family history of asthma and other chronic lower respiratory diseases
CPT/HCPCS: 36415; 71046; 74176; 80048; 80053; 80202; 81001; 82150; 83605; 83690; 83735; 84100; 84132; 84145; 85025; 85610; 85730; 86706; 87040; 87070; 87324; 87340; 87636; 90935; 93005; 94640; 94760; 96365; 96366; 96372; 96375; 99291

== ENCOUNTER 2024-05-06 13:49 | Observation (INO) | payer BC ==
--- NOTE | 2024-05-06 14:15 | ED ---
Recheck HPI - General Chief Complaint: Recheck/Abnormal Lab/Rx Stated Complaint: Cath Issue Time Seen by Provider: 05/06/24 13:59 Source: patient, RN notes reviewed Mode of arrival: ambulatory Limitations: no limitations - History of Present Illness Initial Comments: This is a 58-year-old male who presents to the emergency department for problems with his dialysis catheter. Patient receives dialysis Friday, Friday, and Friday. He has a dialysis catheter in his left chest wall. States that today he felt something wet on his chest and when he went to look he realized he had accidentally pulled out the catheter. He is unsure how he did this. Denies any pain associated with this. Denies any missed sessions of dialysis. States that he did have a fistula made in the left arm, however it is not ready to use yet. - Related Data Home Medications Medication Instructions Recorded Confirmed Insulin Aspart (For Pump) [NovoLOG 0.01 unit SQ-PUMP CONTINUOUS 02/21/23 05/06/24 (For Pump)] FLUoxetine HCL [PROzac] 10 mg PO DAILY 07/14/23 05/06/24 Atorvastatin [Lipitor] 20 mg PO HS 11/14/23 05/06/24 Folic Acid/Vit B Complex and C 0.8 mg PO DAILY 11/14/23 05/06/24 [Lilian-Marsha Tablet] amLODIPine [Norvasc] 10 mg PO DAILY 11/14/23 05/06/24 hydrALAZINE HCL [Apresoline] 100 mg PO TID 11/14/23 05/06/24 Torsemide [Demadex] 100 mg PO DAILY 02/09/24 05/06/24 carvediloL [Coreg] 25 mg PO BID 04/09/24 05/06/24 Doxazosin [Cardura] 4 mg PO DAILY 05/06/24 05/06/24 Isosorbide Mononitrate ER [Imdur] 60 mg PO DAILY 05/06/24 05/06/24 Midodrine [ProAmatine] 5 mg PO DAILY PRN 05/06/24 05/06/24 Valsartan 160 mg PO DAILY 05/06/24 05/06/24 cloNIDine 0.1 MG/24HR PATCH 1 patch TRANSDERM WE 05/06/24 05/06/24 [Catapres-TTS] Previous Rx's Medication Instructions Recorded Aspirin 81 mg PO DAILY 30 Days #30 tab 11/28/23 Allergies Allergy/AdvReac Type Severity Reaction Status Date / Time Iodinated Contrast Media Allergy Anaphylaxis Verified 05/06/24 16:19 Review of Systems ROS Statement: Those systems with pertinent positive or pertinent negative responses have been documented in the HPI. ROS Other: All systems not noted in ROS Statement are negative. Past Medical History Past Medical History: Diabetes Mellitus, Dialysis, Hyperlipidemia, Hypertension, Renal Disease Additional Past Medical History / Comment(s): IDDM type I on insulin pump, DKA, chronic kidney disease, bilateral lower extremity edema. HD on MWF History of Any Multi-Drug Resistant Organisms: None Reported Past Surgical History: No Surgical Hx Reported Additional Past Surgical History / Comment(s): R knee arthroscopy, circumcism, HD cath in chest Past Anesthesia/Blood Transfusion Reactions: No Reported Reaction Past Psychological History: No Psychological Hx Reported Smoking Status: Former smoker Past Alcohol Use History: None Reported Past Drug Use History: None Reported - Past Family History Mother History Unknown: Yes Family Medical History: COPD Father Family Medical History: No Reported History Additional Family Medical History / Comment(s): Mother is healthy. General Exam Limitations: no limitations General appearance: alert, in no apparent distress Head exam: Present: atraumatic, normocephalic, normal inspection Respiratory exam: Present: normal lung sounds bilaterally. Absent: respiratory distress, wheezes, rales, rhonchi, stridor Cardiovascular Exam: Present: regular rate, normal rhythm, normal heart sounds. Absent: systolic murmur, diastolic murmur, rubs, gallop, clicks Neurological exam: Present: alert, oriented X3, CN II-XII intact Psychiatric exam: Present: normal affect, normal mood Course Vital Signs 05/06/24 05/06/24 05/06/24 13:51 21:06 23:01 Temperature 97.6 F Pulse Rate 64 68 72 Respiratory 18 18 18 Rate Blood Pressure 148/78 155/86 164/87 O2 Sat by Pulse 97 96 97 Oximetry Medical Decision Making - Medical Decision Making This is a 58 year old male who presents to the emergency department for problems with his dialysis catheter. Was pt. sent in by a medical professional or institution? @ -No Did you speak to anyone other than the patient for history? @ -No Did you review nursing and triage notes? @ -Yes, and I agree, it is accurate with regards to the patient's symptoms. Were old charts reviewed? @ -No Differential Diagnosis? @ -Dialysis catheter failure, clogged dialysis catheter, trauma, catheter displacement, this is not meant to be an all-inclusive list. EKG interpreted by me (3pts min.)? @ -EKG interpreted by me demonstrating the following: Sinus rhythm. Ventricular rate 64 bpm, VT interval 186 ms, QRS duration 111 ms, QTc 439 ms. X-rays interpreted by me (1pt min.)? @ -Chest x-ray obtained, my interpretation identifies no localized consolidations or infiltrates. CT interpreted by me (1pt min.)? @ -Not obtained U/S interpreted by me (1pt. min.)? @ -Not obtained What testing was considered but not performed? (CT, X-rays, U/S, labs)? Why? @ -None What meds were considered but not given? Why? @ -None Did you discuss the management of the patient with other professionals? @ -Yes, Dr. Su, vascular surgery, who advised admission with plan to replace the catheter tomorrow. Dr. Gaviria accepts the patient for admission to medicine. Did you reconcile home meds? @ -No Was smoking cessation discussed for >3mins.? @ -No Was critical care preformed (if so, how long)? @ -No Were there social determinants of health that impacted care today? How? (Homelessness, low income, unemployed, alcoholism, drug addiction, transportation, low edu. Level, literacy, decrease access to med. care, custodial, rehab)? @ -No Was there de-escalation of care discussed even if they declined? (Discuss DNR or withdrawal of care, Hospice)? @ -No What co-morbidities impacted this encounter? (DM, HTN, Smoking, COPD, CAD, Cancer, CVA, Hep., AIDS, mental health diagnosis, sleep apnea, morbid obesity)? @ -DM, renal failure Was patient admitted / discharged? @ -Admitted. Patient presented to the emergency department as he had accidentally pulled out his dialysis catheter in the left chest wall. Case discussed with Dr. Su, vascular surgery. He advised admitting the patient and he will plan to take him to [facility] to replace it tomorrow. Baseline lab work was obtained. Potassium within normal limits. Patient admitted to medicine for problems related to the dialysis catheter. Vascular surgery and nephrology listed as consult. Case discussed with ED attending Dr. Winslow. Undiagnosed new problem with uncertain prognosis? @ -None Drug Therapy requiring intensive monitoring for toxicity (Heparin, Nitro, Insulin, Cardizem)? @ -None Were any procedures done? @ -None Diagnosis/symptom? @ -Displacement of dialysis catheter Acute, or Chronic, or Acute on Chronic? @ -Acute Uncomplicated (without systemic symptoms) or Complicated (systemic symptoms)? @ -Uncomplicated Side effects of treatment? @ -None Exacerbation, Progression, or Severe Exacerbation] @ -Not applicable Poses a threat to life or bodily function? @ -If it does not get replaced and he cannot get dialysis, then it can become life threatening. - Lab Data Result diagrams: 05/07/24 04:23 05/07/24 04:23 Lab Results 05/06/24 05/06/24 05/06/24 Range/Units 15:58 15:58 15:58 WBC 5.2 (3.8-10.6) k/uL RBC 2.95 L (4.30-5.90) m/uL Hgb 8.9 L (13.0-17.5) gm/dL Hct 28.9 L (39.0-53.0) % MCV 97.9 (80.0-100.0) fL MCH 30.2 (25.0-35.0) pg MCHC 30.8 L (31.0-37.0) g/dL RDW 18.9 H (11.5-15.5) % Plt Count 238 (150-450) k/uL MPV 7.4 Neutrophils % 63 % Lymphocytes % 11 % Monocytes % 8 % Eosinophils % 14 % Basophils % 1 % Neutrophils # 3.3 (1.3-7.7) k/uL Lymphocytes # 0.6 L (1.0-4.8) k/uL Monocytes # 0.4 (0-1.0) k/uL Eosinophils # 0.7 (0-0.7) k/uL Basophils # 0.0 (0-0.2) k/uL Hypochromasia Moderate Anisocytosis Slight Macrocytosis Slight PT 12.2 (10.0-12.5) sec INR 1.1 (<1.2) APTT 29.4 (22.0-30.0) sec Sodium 127 L (137-145) mmol/L Potassium 4.5 (3.5-5.1) mmol/L Chloride 94 L (98-107) mmol/L Carbon Dioxide 24 (22-30) mmol/L Anion Gap 9 mmol/L BUN 69 H (9-20) mg/dL Creatinine 5.62 H (0.66-1.25) mg/dL Est GFR (CKD-EPI)AfAm 12 (>60 ml/min/1.73 sqM) Est GFR (CKD-EPI)NonAf 10 (>60 ml/min/1.73 sqM) Glucose 144 H (74-99) mg/dL Calcium 7.9 L (8.4-10.2) mg/dL Phosphorus 5.8 H (2.5-4.5) mg/dL Magnesium 2.1 (1.6-2.3) mg/dL Total Bilirubin 0.7 (0.2-1.3) mg/dL AST 26 (17-59) U/L ALT 24 (4-49) U/L Alkaline Phosphatase 243 H (38-126) U/L Total Protein 6.7 (6.3-8.2) g/dL Albumin 3.0 L (3.5-5.0) g/dL - Radiology Data Radiology results: report reviewed, image reviewed Disposition Clinical Impression: Displacement of vascular dialysis catheter Disposition: ADMITTED IP TO THIS [facility] Condition: Good
[2024-05-06 16:11] LABS: Anisocytosis Slight; Basophils % (A) 1 %; Eosinophils # (A) 0.7 k/uL (0-0.7); Eosinophils % (A) 14 %; HCT 28.9 % (39.0-53.0); HGB 8.9 gm/dL (13.0-17.5); Hypochromasia Moderate; Lymphocytes # (A) 0.6 k/uL (1.0-4.8); Lymphocytes % (A) 11 %; MCH 30.2 pg (25.0-35.0); MCHC 30.8 g/dL (31.0-37.0); MCV 97.9 fL (80.0-100.0); Macrocytosis Slight; Mean Platelet Volume 7.4; Monocytes # (A) 0.4 k/uL (0-1.0); Monocytes % (A) 8 %; Neutrophils # (A) 3.3 k/uL (1.3-7.7); Neutrophils % (A) 63 %; Platelet Count 238 k/uL (150-450); RBC 2.95 m/uL (4.30-5.90); RDW 18.9 % (11.5-15.5); WBC 5.2 k/uL (3.8-10.6)
[2024-05-06 16:23] LABS: INR 1.1 (<1.2); Partial Thromboplastin Time 29.4 sec (22.0-30.0); Prothrombin Time 12.2 sec (10.0-12.5)
--- NOTE | 2024-05-06 16:36 | XR ---
EXAMINATION TYPE: XR chest 2V DATE OF EXAM: 05/06/2024 COMPARISON: 04/09/2024 INDICATION: Dialysis catheter removal TECHNIQUE: Frontal and lateral views of the chest are obtained. FINDINGS: The heart size is enlarged. The pulmonary vasculature is mildly prominent. The lungs are clear. Left sided catheter has been removed. No pneumothorax is evident. IMPRESSION: 1. Mild Volume overload. 2. Cardiomegaly [facility], Workstation: [facility], 05/06/2024 4:34 PM
[2024-05-06] MEDS ORDERED: MORPHINE SULFATE 4 MG/ML SYRINGE IV PRN (16:38)
[2024-05-06] MEDS ORDERED: ACETAMINOPHEN TAB 325 MG TAB PO PRN (16:38)
[2024-05-06] MEDS ORDERED: NALOXONE 0.4 MG/ML 1 ML VIAL IV PRN (16:38)
[2024-05-06] MEDS ORDERED: ONDANSETRON 4 MG/2 ML VIAL IVP PRN (16:38)
[2024-05-06] MEDS ORDERED: MIDODRINE 5 MG TAB PO PRN (16:39)
[2024-05-06] MEDS ORDERED: DEXTROSE 50% SYRINGE 50 ML IVP PRN ×2 (17:08)
[2024-05-06 17:18] LABS: ALT 24 U/L (4-49); AST 26 U/L (17-59); African American GFR (CKD) 12 (>60 ml/min/1.73 sqM); Alkaline Phosphatase 243 U/L (38-126); Anion Gap 9 mmol/L; Blood Urea Nitrogen 69 mg/dL (9-20); Calcium 7.9 mg/dL (8.4-10.2); Carbon Dioxide 24 mmol/L (22-30); Chloride 94 mmol/L (98-107); Glucose 144 mg/dL (74-99); Magnesium 2.1 mg/dL (1.6-2.3); Non-African American GFR(CKD) 10 (>60 ml/min/1.73 sqM); Phosphorus 5.8 mg/dL (2.5-4.5); Potassium 4.5 mmol/L (3.5-5.1); Sodium 127 mmol/L (137-145); Total Bilirubin 0.7 mg/dL (0.2-1.3); Total Protein 6.7 g/dL (6.3-8.2)
--- NOTE | 2024-05-06 17:23 | P.HPIM ---
History of Present Illness H&P Date: 05/06/24 Patient is a 58-year-old male with history of ESRD on hemodialysis Friday, hypertension, dyslipidemia, type 2 diabetes on insulin pump, systolic heart failure EF 40% presenting after accidentally taking out his dialysis catheter. He claims that he was at his doctor's office today, and known stridor back he felt something moist on his chest, and when he felt that area he noted a lot of blood and noticed that the entire dialysis catheter had come out. No other complaints besides that. He denies any smoking, alcohol use or illicit drug use. In the ED, temperature was 97.6, pulse 64, respiratory rate 18, blood pressure 148/78, saturating at 97% on room air. Hemoglobin 8.9, around baseline, platelet 238, sodium 127, BUN 69, creatinine 5.62, phosphorus 5.8, glucose 144. EKG showed sinus rhythm with signs of early repolarization. Patient being admitted for observation. Vascular surgery consulted. Nephrology consulted. Pertinent positives and negatives as discussed in HPI, a complete review of systems was performed and all other systems are negative. Patient seen and examined at bedside. Vital signs reviewed General: nontoxic, no distress, appears at stated age Derm: warm, dry, left chest with a blood-tinged dressing, no surrounding erythema Head: atraumatic, normocephalic, symmetric Eyes: EOMI, no lid lag, anicteric sclera, pupils equal round reactive to light ENT: Nose and ears atraumatic Neck: No thyromegaly, supple Mouth: no lip lesion, mucus membranes moist Cardiovascular: S1S2 reg, no murmur, 2+ lower extremity bilateral edema, left upper extremity fistula Lungs: clear to auscultation bilateral, no rhonchi, no rales, no wheeze, no acc essory muscle use Abdominal: soft, nontender to palpation, no guarding, no appreciable organomegaly Ext: no gross muscle atrophy, muscle strength muscle strength 5 out of 5 in all 4 extremities, no contractures Neuro: CN II-XII grossly intact Psych: Alert, oriented, appropriate affect Assessment/Plan: Active: Loss of dialysis access ESRD on hemodialysis Friday Hypervolemic hyponatremia Metabolic bone disease -Vascular surgery consulted, plan for inserting another dialysis catheter tomorrow -Nephrology consulted for dialysis tomorrow -Monitor BMP, magnesium, phosphorus Type 2 diabetes on insulin pump -Continue home insulin pump -Check blood sugars qACHS, monitor for hypoglycemia Chronic: Hypertension Dyslipidemia BPH Depression Systolic CHF, not in exacerbation Chronic normocytic anemia, likely from ESRD The patient is admitted with an anticipated less than 2 midnight stay as observation status for evaluation of dialysis catheter access. Surrogate decision-maker: Spouse CODE STATUS: Full code DVT prophylaxis: not indicated, patient ambulatory Anticipated discharge date: 24 to [address]: Home A total of 55 minutes was spent on the care of this complex patient more than 50% of the time was spent in counseling and care coordination. Past Medical History Past Medical History: Diabetes Mellitus, Dialysis, Hyperlipidemia, Hypertension, Renal Disease Additional Past Medical History / Comment(s): IDDM type I on insulin pump, DKA, chronic kidney disease, bilateral lower extremity edema. HD on MWF History of Any Multi-Drug Resistant Organisms: None Reported Past Surgical History: No Surgical Hx Reported Additional Past Surgical History / Comment(s): R knee arthroscopy, circumcism, HD cath in chest Past Anesthesia/Blood Transfusion Reactions: No Reported Reaction Past Psychological History: No Psychological Hx Reported Smoking Status: Former smoker Past Alcohol Use History: None Reported Past Drug Use History: None Reported - Past Family History Mother History Unknown: Yes Family Medical History: COPD Father Family Medical History: No Reported History Additional Family Medical History / Comment(s): Mother is healthy. Medications and Allergies Home Medications Medication Instructions Recorded Confirmed Type Insulin Aspart (For Pump) [NovoLOG 0.01 unit SQ-PUMP CONTINUOUS 02/21/23 05/06/24 History (For Pump)] FLUoxetine HCL [PROzac] 10 mg PO DAILY 07/14/23 05/06/24 History Atorvastatin [Lipitor] 20 mg PO HS 11/14/23 05/06/24 History Folic Acid/Vit B Complex and C 0.8 mg PO DAILY 11/14/23 05/06/24 History [Lilian-Marsha Tablet] amLODIPine [Norvasc] 10 mg PO DAILY 11/14/23 05/06/24 History hydrALAZINE HCL [Apresoline] 100 mg PO TID 11/14/23 05/06/24 History Aspirin 81 mg PO DAILY 30 Days #30 tab 11/28/23 05/06/24 Rx Torsemide [Demadex] 100 mg PO DAILY 02/09/24 05/06/24 History carvediloL [Coreg] 25 mg PO BID 04/09/24 05/06/24 History Doxazosin [Cardura] 4 mg PO DAILY 05/06/24 05/06/24 History Isosorbide Mononitrate ER [Imdur] 60 mg PO DAILY 05/06/24 05/06/24 History Midodrine [ProAmatine] 5 mg PO DAILY PRN 05/06/24 05/06/24 History Valsartan 160 mg PO DAILY 05/06/24 05/06/24 History cloNIDine 0.1 MG/24HR PATCH 1 patch TRANSDERM WE 05/06/24 05/06/24 History [Catapres-TTS] Allergies Allergy/AdvReac Type Severity Reaction Status Date / Time Iodinated Contrast Media Allergy Anaphylaxis Verified 05/06/24 16:19 Physical Exam Vitals: Vital Signs Temp Pulse Resp BP Pulse Ox 05/06/24 13:51 97.6 F 64 18 148/78 97 Intake and Output 05/06/24 05/06/24 05/06/24 06:59 14:59 22:59 Other: Weight 86.183 kg Results CBC & Chem 7: 05/06/24 15:58 05/06/24 15:58 Labs: Abnormal Lab Results - Last 24 Hours (Table) 05/06/24 Range/Units 15:58 RBC 2.95 L (4.30-5.90) m/uL Hgb 8.9 L (13.0-17.5) gm/dL Hct 28.9 L (39.0-53.0) % MCHC 30.8 L (31.0-37.0) g/dL RDW 18.9 H (11.5-15.5) % Lymphocytes # 0.6 L (1.0-4.8) k/uL
[2024-05-06] MEDS: carvediloL 12.5 MG TAB PO SCH (21:02)
[2024-05-06] MEDS: hydrALAZINE HCL 50 MG TAB PO SCH (21:02)
[2024-05-06] MEDS: ATORVASTATIN 20 MG TAB PO SCH (21:02)
[2024-05-06 23:28] LABS: Glucose,Whole Blood 132 mg/dL (70-110)
--- NOTE | 2024-05-07 00:14 | CONS ---
DATE OF CONSULTATION: 05/06/2024 HISTORY OF PRESENT ILLNESS: A 58-year-old gentleman, who came to the emergency room. His catheter came out today. He had dialysis yesterday. The patient also has a history of a dialysis catheter placed in the right side in the past and recently the patient had a fistula created in the left arm. MEDICAL HISTORY: History of chronic renal failure, diabetes, hypertension. PERSONAL HISTORY: Patient is allergic to dye. According to the patient when they try to use Benadryl. PHYSICAL EXAMINATION: GENERAL: On examination, patient was seen in his room. NECK: Supple. No bruit appreciated. CHEST: Clear to auscultation. HEART: First and second sounds present. ABDOMEN: Soft, nontender. EXTREMITIES: Femorals are 1+ bilaterally. The patient has a fistula in the left arm which was placed recently. Has a good thrill. PLAN: Keep the patient n.p.o., midnight. Consent for dialysis catheter placement. We will arrange for a dialysis catheter tomorrow. MMDELIAL / IJN: [id number] / MTDD
[2024-05-07] MEDS ORDERED: INSPUCOR MISCELLANE PRN (00:28)
[2024-05-07] MEDS: Insulin Aspart (For Pump) 100 UNIT/ML VIAL SQ-PUMP SCH (00:35)
[2024-05-07 05:23] LABS: Glucose,Whole Blood 167 mg/dL (70-110)
[2024-05-07] MEDS: FOLIC ACID-VIT B COMPLEX-VIT C 1 CAP PO SCH (09:30)
[2024-05-07] MEDS: amLODIPine 10 MG TAB PO SCH (09:30)
[2024-05-07] MEDS: ASPIRIN 81 MG PO SCH (09:30)
[2024-05-07] MEDS: VALSARTAN 160 MG TAB PO SCH (09:31)
[2024-05-07] MEDS: DOXAZOSIN 4 MG TAB PO SCH (09:31)
[2024-05-07] MEDS: FLUoxetine HCL 10 MG CAP PO SCH (09:31)
[2024-05-07 11:02] LABS: BUN/Creat Ratio 11.02 Ratio (12.00-20.00); Blood Urea Nitrogen 71.6 mg/dL (9.0-27.0); Calcium 8.2 mg/dL (8.7-10.3); Carbon Dioxide 25.3 mmol/L (21.6-31.8); Chloride 89 mmol/L (96-109); Glucose 142 mg/dL (70-110); Magnesium 2.2 mg/dL (1.5-2.4); Potassium 5.5 mmol/L (3.5-5.5); Sodium 127 mmol/L (135-145)
[2024-05-07 11:07] LABS: Basophils # (A) 0.06 X 10*3/uL (0.00-0.10); Basophils % (A) 0.9 %; Eosinophils # (A) 0.99 X 10*3/uL (0.04-0.35); Eosinophils % (A) 14.9 %; HCT 26.5 % (39.6-50.0); HGB 8.3 g/dL (13.0-17.0); Lymphocytes # (A) 0.55 X 10*3/uL (0.90-5.00); Lymphocytes % (A) 8.3 %; MCH 29.3 pg (27.0-32.0); MCHC 31.3 g/dL (32.0-37.0); MCV 93.6 FL (80.0-97.0); Monocytes # (A) 0.85 X 10*3/uL (0.20-1.00); Monocytes % (A) 12.8 %; NRBC Per 100 WBC 0 X 10*3/uL (0.00-0.01); Neutrophils # (A) 4.18 X 10*3/uL (1.80-7.70); Neutrophils % (A) 62.8 %; Platelet Count 239 X 10*3/uL (140-440); RBC 2.83 X 10*6/uL (4.40-5.60); WBC 6.65 X 10*3/uL (4.50-10.00)
--- NOTE | 2024-05-07 11:29 | P.NPCON ---
History of Present Illness - Reason for Consult Consult date: 05/07/24 end stage renal disease Requesting physician: Karley Jordan - Chief Complaint Displacement of dialysis catheter - History of Present Illness Patient is a 58-year-old male with past medical history of ESRD on hemodialysis Friday, hypertension, type 2 diabetes on insulin pump, systolic heart failure EF 40% who presented to the ED yesterday after accidentally taking his dialysis catheter out. He mentions he was driving yesterday when he felt something moist on his chest which is when he noticed the catheter was out. He also reports some wounds on his leg for which he goes to wound care. BP on admission 148/78. Chest x-ray shows mild volume overload and cardiomegaly. Patient seen today in renal consultation for ESRD on dialysis Friday. Labs show potassium 5.5 today. Denies any other complaints. Last dialysis session was on Friday. Denies missing any dialysis sessions. Mentions of a fistula made in the left arm which is not yet ready to use. Past Medical History Past Medical History: Heart Failure, Diabetes Mellitus, Dialysis, Hyperlipidemia, Hypertension, Renal Disease Additional Past Medical History / Comment(s): IDDM type I on insulin pump, DKA, chronic kidney disease, bilateral lower extremity edema. HD on MWF started 2years ago. History of Any Multi-Drug Resistant Organisms: None Reported Past Surgical History: No Surgical Hx Reported Additional Past Surgical History / Comment(s): R knee arthroscopy, circumcism, HD cath in chest placed to left upper chest in November 2023 accidently pulled out 05/06/2024. left arm fistula graft 04/27/2024 Past Anesthesia/Blood Transfusion Reactions: No Reported Reaction Past Psychological History: No Psychological Hx Reported Additional Psychological History / Comment(s): Pt resides with his spouse. He is independent. Smoking Status: Former smoker Past Alcohol Use History: None Reported Additional Past Alcohol Use History / Comment(s): Pt started smoking in 1985 and quit 07/25/20 Past Drug Use History: None Reported Additional Drug Use History / Comment(s): emi perez - Past Family History Mother History Unknown: Yes Family Medical History: COPD Father Family Medical History: No Reported History Additional Family Medical History / Comment(s): Mother is healthy. Medications and Allergies Home Medications Medication Instructions Recorded Confirmed Type Insulin Aspart (For Pump) [NovoLOG 0.01 unit SQ-PUMP CONTINUOUS 02/21/23 05/06/24 History (For Pump)] FLUoxetine HCL [PROzac] 10 mg PO DAILY 07/14/23 05/06/24 History Atorvastatin [Lipitor] 20 mg PO HS 11/14/23 05/06/24 History Folic Acid/Vit B Complex and C 0.8 mg PO DAILY 11/14/23 05/06/24 History [Lilian-Marsha Tablet] amLODIPine [Norvasc] 10 mg PO DAILY 11/14/23 05/06/24 History hydrALAZINE HCL [Apresoline] 100 mg PO TID 11/14/23 05/06/24 History Aspirin 81 mg PO DAILY 30 Days #30 tab 11/28/23 05/06/24 Rx Torsemide [Demadex] 100 mg PO DAILY 02/09/24 05/06/24 History carvediloL [Coreg] 25 mg PO BID 04/09/24 05/06/24 History Doxazosin [Cardura] 4 mg PO DAILY 05/06/24 05/06/24 History Isosorbide Mononitrate ER [Imdur] 60 mg PO DAILY 05/06/24 05/06/24 History Midodrine [ProAmatine] 5 mg PO DAILY PRN 05/06/24 05/06/24 History Valsartan 160 mg PO DAILY 05/06/24 05/06/24 History cloNIDine 0.1 MG/24HR PATCH 1 patch TRANSDERM WE 05/06/24 05/06/24 History [Catapres-TTS] Allergies Allergy/AdvReac Type Severity Reaction Status Date / Time Iodinated Contrast Media Allergy Anaphylaxis Verified 05/06/24 16:19 Physical Exam Vitals: Vital Signs Temp Pulse Pulse Resp BP BP Pulse Ox 05/07/24 07:00 98.1 F 74 16 172/83 94 L 05/07/24 02:30 98.2 F 70 17 163/80 94 L 05/06/24 23:31 98.1 F 70 17 175/82 96 05/06/24 23:01 72 18 164/87 97 05/06/24 21:06 68 18 155/86 96 05/06/24 13:51 97.6 F 64 18 148/78 97 Intake and Output 05/06/24 05/07/24 05/07/24 22:59 06:59 14:59 Intake Total 0 Balance 0 Intake: Oral 0 Other: # Voids 3 Weight 86.183 kg General: nontoxic, no distress, appears at stated age, normal BMI, alert, o riented Derm: warm, dry, intact Cardiovascular: S1 S2 reg, no murmur Lungs: CTA bilateral, no accessory muscle use Abdominal: soft, non-tender to palpataion Extremities: 2-3+ b/l pitting edema and wounds. Results - Lab Results Most recent lab results Calcium 8.2 mg/dL (8.7-10.3) L 05/07/24 04:23 Phosphorus 5.8 mg/dL (2.5-4.5) H 05/06/24 15:58 Magnesium 2.2 mg/dL (1.5-2.4) 05/07/24 04:23 05/07/24 04:23 05/07/24 04:23 Assessment and Plan Assessment: 1. ESRD on hemodialysis Friday. Loss of dialysis access, vascular surgery consulted. Scheduled for permacath placement today. 2. Hypervolemic hyponatremia, secondary to ESRD and cardiomegaly with volume overload 3. Mineral and bone disorder of ESRD. 4. Type 2 diabetes on insulin pump. 5. Hypertension. Volume sensitive. Maintained on amlodipine, carvedilol, clonidine patch, hydralazine, valsartan, torsemide. 6. H/o BPH Plan: Hemodialysis catheter insertion by vascular surgery Hemodialysis today Patient can be discharged post dialysis. Patient is seen and examined. Agree with resident's findings assessment and plan.
[2024-05-07] MEDS: ISOSORBIDE MONONITRATE ER 60 MG TAB.ER.24H PO SCH (12:00)
[2024-05-07] MEDS: TORSEMIDE 20 MG TAB PO SCH (12:07)
[2024-05-07 12:11] LABS: Glucose,Whole Blood 127 mg/dL (70-110)
[2024-05-07] MEDS: methylPREDNISolone SOD SUCCI 125 MG/2 ML VIAL IVP ONE (13:50)
[2024-05-07] MEDS: MIDAZOLAM 2 MG/2 ML VIAL IVP ONE (13:50)
[2024-05-07] MEDS: fentaNYL (PF) 50 MCG/ML 2 ML AMP IVP ONE ×2 (13:50)
[2024-05-07] MEDS: diphenhydrAMINE 50 MG/ML 1 ML VIAL IVP ONE (13:50)
[2024-05-07] MEDS: LIDOCAINE 1% INJ 10MG/ML (20 ML MDV) SQ ONE (13:57)
[2024-05-07] MEDS: HEPARIN SODIUM,PORCINE (1 ML) 2,500 UNIT in SODIUM CHLORIDE 0.9% 250 ML IRRIGATION ONE (13:57)
[2024-05-07] MEDS: SODIUM CHLORIDE 0.9% 250 ML IV ONE (13:57)
[2024-05-07] MEDS: IOPAMIDOL-250 100ML BTL IVP ONE (14:13)
[2024-05-07] MEDS: HYDROcodone/APAP 5-325MG 1 EACH TAB PO PRN (15:06)
--- NOTE | 2024-05-07 15:19 | XR ---
EXAMINATION TYPE: XR chest 1V portable DATE OF EXAM: 05/07/2024 COMPARISON: 05/06/2024 HISTORY: Hemodialysis TECHNIQUE: Single frontal view of the chest is obtained. FINDINGS: Left-sided hemodialysis catheter with tip overlying the atriocaval junction. No sizable pn eumothorax. There is severe cardiomegaly and atherosclerotic changes of aorta. Coarsened interstitium may reflect chronic interstitial lung disease or venous congestion. No sizable pleural effusion. Ost eopenia and degenerative changes of the spine. Metallic density in the left upper abdomen may be rela harman to prior procedure. IMPRESSION: 1. Dialysis catheter with the tip overlying the cavoatrial junction and no sizable pneumothorax. 2. Severe cardiomegaly correlate for chronic venous congestion or interstitial lung disease. [facility], , 05/07/2024 3:17 PM
--- NOTE | 2024-05-07 17:05 | P.DS ---
Providers Date of admission: 05/06/24 16:52 Expected date of discharge: 05/07/24 Attending physician: Suman Gaviria Consults: 05/06/24 15:13 Consult Physician Urgent Consulting Provider: Dylan Su Consult Reason/Comments: Dialysis catheter in chest pulled out Do you want consulting provider notified?: Yes 05/06/24 16:35 Consult Physician Urgent Consulting Provider: Sheba Shaffer Consult Reason/Comments: Dialysis patient Do you want consulting provider notified?: Yes Primary care physician: Fabiola Hospital Course: Loss of dialysis access ESRD on hemodialysis Friday Hypervolemic hyponatremia Metabolic bone disease Type 2 diabetes on insulin pump Hypertension Dyslipidemia BPH Depression Systolic CHF, not in exacerbation Chronic normocytic anemia, likely from ESRD Patient is a 58-year-old male with history of ESRD on hemodialysis Friday, hypertension, dyslipidemia, type 2 diabetes on insulin pump, systolic heart failure EF 40% presenting after accidentally taking out his dialysis catheter. In the ED, temperature was 97.6, pulse 64, respiratory rate 18, blood pressure 148/78, saturating at 97% on room air. Hemoglobin 8.9, around baseline, platelet 238, sodium 127, BUN 69, creatinine 5.62, phosphorus 5.8, glucose 144. EKG showed sinus rhythm with signs of early repolarization. Patient was admitted for observation. Vascular surgery consulted. Nephrology consulted. Patient has dialysis catheter replaced. Nephrology was consulted and patient underwent dialysis session following replacement of catheter. He tolerated the session well and was discharged home in routine condition. He will follow-up routinely with his PCP, nephrology, continue with his dialysis sessions. Gen: In NAD, non-toxic HEENT: normocephalic, atraumatic, hearing acuity is intant, mucous membranes moist CVS: perfusing all extremities well, no pitting edema, Respiratory: symmetric chest expansion, no accessory muscle use, GI: soft, NTTP, ND, : no suprapubic tenderness, no CVA tenderness MSK/Derm: no rashes, cyanosis Neuro: CN II-XII intact, no motor weakness, Psych: cooperative, euthymic mood, judgment and insight is intact Patient Condition at Discharge: Good Plan - Discharge Summary Discharge Rx Participant: No New Discharge Prescriptions: Continue Insulin Aspart (For Pump) [NovoLOG (For Pump)] 0.01 unit SQ-PUMP CONTINUOUS FLUoxetine HCL [PROzac] 10 mg PO DAILY Atorvastatin [Lipitor] 20 mg PO HS Folic Acid/Vit B Complex and C [Lilian-Marsha Tablet] 0.8 mg PO DAILY Aspirin 81 mg PO DAILY 30 Days #30 tab Torsemide [Demadex] 100 mg PO DAILY carvediloL [Coreg] 25 mg PO BID Doxazosin [Cardura] 4 mg PO DAILY cloNIDine 0.1 MG/24HR PATCH [Catapres-TTS] 1 patch TRANSDERM WE hydrALAZINE HCL [Apresoline] 100 mg PO TID amLODIPine [Norvasc] 10 mg PO DAILY Isosorbide Mononitrate ER [Imdur] 60 mg PO DAILY Midodrine [ProAmatine] 5 mg PO DAILY PRN PRN Reason: low blood pressure Valsartan 160 mg PO DAILY Discharge Medication List Insulin Aspart (For Pump) [NovoLOG (For Pump)] 0.01 unit SQ-PUMP CONTINUOUS 02/21/23 [History] FLUoxetine HCL [PROzac] 10 mg PO DAILY 07/14/23 [History] Atorvastatin [Lipitor] 20 mg PO HS 11/14/23 [History] Folic Acid/Vit B Complex and C [Lilian-Marsha Tablet] 0.8 mg PO DAILY 11/14/23 [History] amLODIPine [Norvasc] 10 mg PO DAILY 11/14/23 [History] hydrALAZINE HCL [Apresoline] 100 mg PO TID 11/14/23 [History] Aspirin 81 mg PO DAILY 30 Days #30 tab 11/28/23 [Rx] Torsemide [Demadex] 100 mg PO DAILY 02/09/24 [History] carvediloL [Coreg] 25 mg PO BID 04/09/24 [History] Doxazosin [Cardura] 4 mg PO DAILY 05/06/24 [History] Isosorbide Mononitrate ER [Imdur] 60 mg PO DAILY 05/06/24 [History] Midodrine [ProAmatine] 5 mg PO DAILY PRN 05/06/24 [History] Valsartan 160 mg PO DAILY 05/06/24 [History] cloNIDine 0.1 MG/24HR PATCH [Catapres-TTS] 1 patch TRANSDERM WE 05/06/24 [History] Follow up Appointment(s)/Referral(s): Devon Mattson MD [Primary Care Provider] - 1-2 days Discharge Disposition: HOME SELF-CARE
[2024-05-07 17:28] LABS: Glucose,Whole Blood 157 mg/dL (70-110)
[2024-05-07 19:14] VITALS: PULSE 66; TEMP 97.8
[2024-05-07 19:36] VITALS: BP 160/72; RESP 16
--- NOTE | 2024-05-07 20:59 | OP ---
OPERATIVE REPORT DATE OF SERVICE : PREOPERATIVE DIAGNOSIS: Acute chronic renal failure. POSTOPERATIVE DIAGNOSIS: Acute chronic renal failure. PROCEDURE PERFORMED: Ultrasound-guided 28 cm dialysis catheter, left jugular approach. DESCRIPTION OF PROCEDURE: The patient was brought to the experimental machining lab manager. The left side of the chest was prepped and drapes were applied in the usual sterile manner. 1% lidocaine was infiltrated at the left side of the neck and chest area. Ultrasound-guided micropuncture introduced into left jugular vein. Micropuncture guidewire was passed. Then, 4-Brazilian dilator was advanced on top of the guidewire. Then, we passed a guidewire which was parked in the inferior vena cava. A tunnel was created. Through the tunnel, we brought 28 cm dialysis catheter. Then, the dilator was advanced on top of the guidewire under fluoroscopic control and then sheath was advanced on the top of the guidewire under fluoroscopic control. Through the sheath, we placed a dialysis catheter. Tip of the catheter in superior vena cavoatrial junction, flushed with heparin saline and hep- locked, secured with 3-0 nylon. Pressure dressing applied. The patient tolerated the procedure well. MMODL / IJN: [id number] /
--- NOTE | 2024-05-11 11:01 | IR ---
EXAMINATION TYPE: IR cvc insert central tunneled DATE OF EXAM: 05/11/2024 FLUOROSCOPY DIALYSIS, DAP 5.34, 559 images submitted. [facility], , 05/11/2024 10:59 AM
[2024-05-12] MEDS ORDERED: cloNIDine 0.1 MG/24HR PATCH TRANSDERM SCH (16:39)
== END 2024-05-07 20:45 | disposition home or self-care (01) ==
LOC: EC 13:49 → 6NMEDSUR 16:52
PROVIDERS: ADMIT Student in an Organized Health Care Education/Training Program; ATTEND Student in an Organized Health Care Education/Training Program
DX: T82.42XA Displacement of vascular dialysis catheter, initial encounter (principal); Z99.2 Dependence on renal dialysis; I13.2 Hypertensive heart and chronic kidney disease with heart failure and with stage 5 chronic kidney disease, or end stage renal disease; N18.6 End stage renal disease; I50.22 Chronic systolic (congestive) heart failure; E11.22 Type 2 diabetes mellitus with diabetic chronic kidney disease; E87.1 Hypo-osmolality and hyponatremia; M89.8X9 Other specified disorders of bone, unspecified site; E78.5 Hyperlipidemia, unspecified; N40.0 Benign prostatic hyperplasia without lower urinary tract symptoms; F32.A Depression, unspecified; Z79.4 Long term (current) use of insulin; Z96.41 Presence of insulin pump (external) (internal); Z87.891 Personal history of nicotine dependence; Z79.899 Other long term (current) drug therapy; Z79.82 Long term (current) use of aspirin; Z91.041 Radiographic dye allergy status; Z82.5 Family history of asthma and other chronic lower respiratory diseases
CPT/HCPCS: 90935; 99285; 36415; 93005; 36558; 76937; 77001; 80053; 80048; 83735 ×2; 84100; 85025 ×2; 85610; 85730; 71045; 71046; G0378 ×2; C1750; J2250; J1200; J1644 ×2; J2003; J3010; Q9966; J2919

== ENCOUNTER 2024-05-25 11:48 | Inpatient (IN) | payer BC ==
[2024-05-25 12:01] LABS: Glucose,Whole Blood 390 mg/dL (70-110)
--- NOTE | 2024-05-25 12:48 | ED ---
General Adult HPI - General Chief complaint: Fever Stated complaint: WEAKNESS Time Seen by Provider: 05/25/24 12:05 Source: patient, family, RN notes reviewed, old records reviewed Mode of arrival: wheelchair Limitations: altered mental status, physical limitation - History of Present Illness Initial comments: This is a 58-year-old male who has past medical history significant for diabetes and is on hemodialysis. Patient is very difficult to get a history from and not very forthcoming about why he is here. Patient states he just does not feel good on further investigation he slept most of the day yesterday however he did get dialysis. Patient states he just does not feel good all over he has no area of pain but he did vomit a little have a little bit of diarrhea. Patient denies any cough or chills patient denies any back pain. Patient denies headache patient denies numbness weakness - Related Data Home Medications Medication Instructions Recorded Confirmed Insulin Aspart (For Pump) [NovoLOG 0.01 unit SQ-PUMP CONTINUOUS 02/21/23 05/25/24 (For Pump)] FLUoxetine HCL [PROzac] 10 mg PO DAILY 07/14/23 05/25/24 Atorvastatin [Lipitor] 20 mg PO HS 11/14/23 05/25/24 Folic Acid/Vit B Complex and C 0.8 mg PO DAILY 11/14/23 05/25/24 [Lilian-Marsha Tablet] amLODIPine [Norvasc] 10 mg PO DAILY 11/14/23 05/25/24 hydrALAZINE HCL [Apresoline] 100 mg PO TID 11/14/23 05/25/24 Torsemide [Demadex] 100 mg PO DAILY 02/09/24 05/25/24 carvediloL [Coreg] 25 mg PO BID 04/09/24 05/25/24 Doxazosin [Cardura] 4 mg PO DAILY 05/06/24 05/25/24 Isosorbide Mononitrate ER [Imdur] 60 mg PO DAILY 05/06/24 05/25/24 Midodrine [ProAmatine] 5 mg PO DAILY PRN 05/06/24 05/25/24 Valsartan 160 mg PO DAILY 05/06/24 05/25/24 cloNIDine 0.1 MG/24HR PATCH 1 patch TRANSDERM WE 05/06/24 05/25/24 [Catapres-TTS] Previous Rx's Medication Instructions Recorded Aspirin 81 mg PO DAILY 30 Days #30 tab 11/28/23 Allergies Allergy/AdvReac Type Severity Reaction Status Date / Time Iodinated Contrast Media Allergy Anaphylaxis Verified 05/25/24 13:40 Review of Systems ROS Statement: Those systems with pertinent positive or pertinent negative responses have been documented in the HPI. ROS Other: All systems not noted in ROS Statement are negative. Past Medical History Past Medical History: Diabetes Mellitus, Dialysis, Renal Disease Additional Past Medical History / Comment(s): IDDM type I on insulin pump, DKA, chronic kidney disease, bilateral lower extremity edema. HD on MWF History of Any Multi-Drug Resistant Organisms: None Reported Past Surgical History: No Surgical Hx Reported Additional Past Surgical History / Comment(s): R knee arthroscopy, circumcism, HD cath in chest Past Anesthesia/Blood Transfusion Reactions: No Reported Reaction Past Psychological History: No Psychological Hx Reported Smoking Status: Former smoker Past Alcohol Use History: None Reported Past Drug Use History: None Reported - Past Family History Mother History Unknown: Yes Family Medical History: COPD Father Family Medical History: No Reported History Additional Family Medical History / Comment(s): Mother is healthy. General Exam - General Exam Comments Initial Comments: GENERAL: Patient is well-developed and well-nourished. Patient is nontoxic and well- hydrated and is in mild distress. ENT: Neck is soft and supple. No significant lymphadenopathy is noted. Oropharynx is clear. Moist mucous membranes. Neck has full range of motion without eliciting any pain. EYES: The sclera were anicteric and conjunctiva were pink and moist. Extraocular movements were intact and pupils were equal round and reactive to light. Eyelids were unremarkable. PULMONARY: Unlabored respirations. Good breath sounds bilaterally. No audible rales rhonchi or wheezing was noted. CARDIOVASCULAR: There is a regular rate and rhythm without any murmurs gallops or rubs. ABDOMEN: Soft and nontender with normal bowel sounds. SKIN: Skin is clear with no lesions or rashes and otherwise unremarkable. NEUROLOGIC: Patient is alert and oriented x3. Cranial nerves II through XII are grossly intact. Motor and sensory are also intact. Normal speech, volume and content. Symmetrical smile. MUSCULOSKELETAL: Normal extremities with adequate strength and full range of motion. LYMPHATICS: No significant lymphadenopathy is noted PSYCHIATRIC: Normal psychiatric evaluation. Limitations: altered mental status, physical limitation Course Vital Signs 05/25/24 05/25/24 05/25/24 11:55 14:38 15:15 Temperature 102.3 F H 98.7 F Pulse Rate 91 85 77 Respiratory 22 16 18 Rate Blood Pressure 151/80 157/75 132/74 O2 Sat by Pulse 94 L 98 92 L Oximetry 05/25/24 18:41 Temperature 97.3 F L Pulse Rate 66 Respiratory 14 Rate Blood Pressure 138/77 O2 Sat by Pulse 92 L Oximetry Medical Decision Making - Medical Decision Making EKG is interpreted by myself. EKG shows a sinus rhythm at 88 bpm NE 179 QRS is 106 QT interval 358 QTc is 404. Patient's EKG shows no ST segment elevation or depression. Patient does have Q waves in the lateral leads I and aVL Was pt. sent in by a medical professional or institution (RICK Rajan, [facility], urgent care, hospital, or long term...) When possible be specific @ -No Did you speak to anyone other than the patient for history (EMS, parent, family, police, friend...)? What history was obtained from this source @ -No Did you review nursing and triage notes (agree or disagree)? Why? @ -I reviewed and agree with nursing and triage notes Were old charts reviewed (outside hosp., previous admission, EMS record, old EKG, old radiological studies, urgent care reports/EKG's, long term records)? Report findings @ -No old charts were reviewed Differential Diagnosis? @ -Differential Fever: Pneumonia, viral URI, endocarditis, myocarditis, pericarditis, otitis, sinusitis, peritonsillar Abscess, retropharyngeal Abscess, epiglottitis, peritonitis, appendicitis, Elizabeth cystitis, diverticulitis, hepatitis, colitis, UTI, PID, TOA, pyelonephritis, prostatitis, epididymitis, meningitis, encephalitis, pulmonary embolism, CVA, thyroid storm, pancreatitis, adrenal crisis, cavernous sinus thrombosis, this is not meant to be an all-inclusive list. EKG interpreted by me (3pts min.). @ -As above X-rays interpreted by me (1pt min.). @ -Chest x-ray shows no acute abnormality CT interpreted by me (1pt min.). @ -None done U/S interpreted by me (1pt. min.). @ -None done What testing was considered but not performed or refused? (CT, X-rays, U/S, labs)? Why? @ -None What meds were considered but not given or refused? Why? @ -None Did you discuss the management of the patient with other professionals (professionals i.e. , PA, TUB CHUCKER, lab, RT, psych nurse, mental health social worker, uniforms sales representative, teacher, public affairs officer, housing case manager)? Give summary @ -I spoke with [facility] [place] [facility] and they agreed to admit the patient Was smoking cessation discussed for >3mins.? @ -No Was critical care preformed (if so, how long)? @ -No Were there social determinants of health that impacted care today? How? (Homelessness, low income, unemployed, alcoholism, drug addiction, transportation, low edu. Level, literacy, decrease access to med. care, senior living, rehab)? @ -No Was there de-escalation of care discussed even if they declined (Discuss DNR or withdrawal of care, Hospice)? DNR status @ -No What co-morbidities impacted this encounter? (DM, HTN, Smoking, COPD, CAD, Cancer, CVA, ARF, Chemo, Hep., AIDS, mental health diagnosis, sleep apnea, morbid obesity)? @ -None Was patient admitted / discharged? Hospital course, mention meds given and route, prescriptions, significant lab abnormalities, going to OR and other pertinent info. @ -Patient has a wound on the left foot with some drainage. I gave the patient antibiotics to cover this wound. Patient was given Rocephin and vancomycin. Patient will be admitted to [facility] [place] [facility]. I went back into reevaluate the patient on 3 occasions and each time he was too tired to get up and move around much and he seemed as though he would benefit from being admitted to the hospital Undiagnosed new problem with uncertain prognosis? @ -No Drug Therapy requiring intensive monitoring for toxicity (Heparin, Nitro, Insulin, Cardizem)? @ -No Were any procedures done? @ -No Diagnosis/symptom? @ -Left heel infection Acute, or Chronic, or Acute on Chronic? @ -Acute on Uncomplicated (without systemic symptoms) or Complicated (systemic symptoms)? @ -Chronic Side effects of treatment? @ -Did Exacerbation, Progression, or Severe Exacerbation? @ -No Poses a threat to life or bodily function? How? (Chest pain, [place], [place], pneumonia, PE, COPD, DKA, ARF, appy, cholecystitis, CVA, Diverticulitis, Homicidal, Suicidal, threat to staff... and all critical care pts) @ -Yes this could lead to sepsis and endorgan dysfunction Diagnosis/symptom? @ -Sepsis Acute, or Chronic, or Acute on Chronic? @ -Acute Uncomplicated (without systemic symptoms) or Complicated (systemic symptoms)? @ -Complicated Side effects of treatment? @ -None Exacerbation, Progression, or Severe Exacerbation] @ -No Poses a threat to life or bodily function? @ -Yes this could lead to endorgan dysfunction - Lab Data Result diagrams: 05/25/24 13:02 05/25/24 13:02 Lab Results 05/25/24 05/25/24 05/25/24 Range/Units 11:59 13:02 13:02 WBC 14.4 H (3.8-10.6) k/uL RBC 3.18 L (4.30-5.90) m/uL Hgb 9.5 L (13.0-17.5) gm/dL Hct 29.7 L (39.0-53.0) % MCV 93.6 (80.0-100.0) fL MCH 29.7 (25.0-35.0) pg MCHC 31.8 (31.0-37.0) g/dL RDW 17.7 H (11.5-15.5) % Plt Count 228 (150-450) k/uL MPV 8.1 Neutrophils % 92 % Lymphocytes % 4 % Monocytes % 3 % Eosinophils % 0 % Basophils % 0 % Neutrophils # 13.2 H (1.3-7.7) k/uL Lymphocytes # 0.5 L (1.0-4.8) k/uL Monocytes # 0.4 (0-1.0) k/uL Eosinophils # 0.0 (0-0.7) k/uL Basophils # 0.0 (0-0.2) k/uL Hypochromasia Marked Anisocytosis Slight PT 13.0 H (10.0-12.5) sec INR 1.2 H (<1.2) APTT 29.0 (22.0-30.0) sec Sodium (137-145) mmol/L Potassium (3.5-5.1) mmol/L Chloride (98-107) mmol/L Carbon Dioxide (22-30) mmol/L Anion Gap mmol/L BUN (9-20) mg/dL Creatinine (0.66-1.25) mg/dL Est GFR (CKD-EPI)AfAm (>60 ml/min/1.73 sqM) Est GFR (CKD-EPI)NonAf (>60 ml/min/1.73 sqM) Glucose (74-99) mg/dL POC Glucose (mg/dL) 390 H (70-110) mg/dL POC Glu Welfare Service Aide ID Dilma Figueredo Plasma Lactic Acid Howard (0.7-2.0) mmol/L Calcium (8.4-10.2) mg/dL Total Bilirubin (0.2-1.3) mg/dL AST (17-59) U/L ALT (4-49) U/L Alkaline Phosphatase (38-126) U/L Total Protein (6.3-8.2) g/dL Albumin (3.5-5.0) g/dL Urine Color Urine Appearance (Clear) Urine pH (5.0-8.0) Ur Specific [place] (1.001-1.035) Urine Protein (Negative) Urine Glucose (UA) (Negative) Urine Ketones (Negative) Urine Blood (Negative) Urine Nitrite (Negative) Urine Bilirubin (Negative) Urine Urobilinogen (<2.0) mg/dL Ur Leukocyte Esterase (Negative) Urine RBC (0-5) /hpf Urine WBC (0-5) /hpf Ur Squamous Epith Cells (0-4) /hpf Urine Bacteria (None) /hpf Urine Mucus (None) /hpf Acetone, Qual (Negative) Influenza Type A (PCR) (Not Detectd) Influenza Type B (PCR) (Not Detectd) RSV (PCR) (Not Detectd) SARS-CoV-2 (PCR) (Not Detectd) 05/25/24 05/25/24 05/25/24 Range/Units 13:02 13:02 13:08 WBC (3.8-10.6) k/uL RBC (4.30-5.90) m/uL Hgb (13.0-17.5) gm/dL Hct (39.0-53.0) % MCV (80.0-100.0) fL MCH (25.0-35.0) pg MCHC (31.0-37.0) g/dL RDW (11.5-15.5) % Plt Count (150-450) k/uL MPV Neutrophils % % Lymphocytes % % Monocytes % % Eosinophils % % Basophils % % Neutrophils # (1.3-7.7) k/uL Lymphocytes # (1.0-4.8) k/uL Monocytes # (0-1.0) k/uL Eosinophils # (0-0.7) k/uL Basophils # (0-0.2) k/uL Hypochromasia Anisocytosis PT (10.0-12.5) sec INR (<1.2) APTT (22.0-30.0) sec Sodium 128 L (137-145) mmol/L Potassium 5.8 H (3.5-5.1) mmol/L Chloride 92 L (98-107) mmol/L Carbon Dioxide 24 (22-30) mmol/L Anion Gap 12 mmol/L BUN 45 H (9-20) mg/dL Creatinine 5.31 H (0.66-1.25) mg/dL Est GFR (CKD-EPI)AfAm 13 (>60 ml/min/1.73 sqM) Est GFR (CKD-EPI)NonAf 11 (>60 ml/min/1.73 sqM) Glucose 372 H (74-99) mg/dL POC Glucose (mg/dL) (70-110) mg/dL POC Glu Welfare Service Aide ID Plasma Lactic Acid Howard 1.7 (0.7-2.0) mmol/L Calcium 8.0 L (8.4-10.2) mg/dL Total Bilirubin 0.9 (0.2-1.3) mg/dL AST 18 (17-59) U/L ALT 17 (4-49) U/L Alkaline Phosphatase 268 H (38-126) U/L Total Protein 7.6 (6.3-8.2) g/dL Albumin 3.5 (3.5-5.0) g/dL Urine Color Urine Appearance (Clear) Urine pH (5.0-8.0) Ur Specific [place] (1.001-1.035) Urine Protein (Negative) Urine Glucose (UA) (Negative) Urine Ketones (Negative) Urine Blood (Negative) Urine Nitrite (Negative) Urine Bilirubin (Negative) Urine Urobilinogen (<2.0) mg/dL Ur Leukocyte Esterase (Negative) Urine RBC (0-5) /hpf Urine WBC (0-5) /hpf Ur Squamous Epith Cells (0-4) /hpf Urine Bacteria (None) /hpf Urine Mucus (None) /hpf Acetone, Qual Negative (Negative) Influenza Type A (PCR) Not Detected (Not Detectd) Influenza Type B (PCR) Not Detected (Not Detectd) RSV (PCR) Not Detected (Not Detectd) SARS-CoV-2 (PCR) Not Detected (Not Detectd) 05/25/24 Range/Units 15:43 WBC (3.8-10.6) k/uL RBC (4.30-5.90) m/uL Hgb (13.0-17.5) gm/dL Hct (39.0-53.0) % MCV (80.0-100.0) fL MCH (25.0-35.0) pg MCHC (31.0-37.0) g/dL RDW (11.5-15.5) % Plt Count (150-450) k/uL MPV Neutrophils % % Lymphocytes % % Monocytes % % Eosinophils % % Basophils % % Neutrophils # (1.3-7.7) k/uL Lymphocytes # (1.0-4.8) k/uL Monocytes # (0-1.0) k/uL Eosinophils # (0-0.7) k/uL Basophils # (0-0.2) k/uL Hypochromasia Anisocytosis PT (10.0-12.5) sec INR (<1.2) APTT (22.0-30.0) sec Sodium (137-145) mmol/L Potassium (3.5-5.1) mmol/L Chloride (98-107) mmol/L Carbon Dioxide (22-30) mmol/L Anion Gap mmol/L BUN (9-20) mg/dL Creatinine (0.66-1.25) mg/dL Est GFR (CKD-EPI)AfAm (>60 ml/min/1.73 sqM) Est GFR (CKD-EPI)NonAf (>60 ml/min/1.73 sqM) Glucose (74-99) mg/dL POC Glucose (mg/dL) (70-110) mg/dL POC Glu Welfare Service Aide ID Plasma Lactic Acid Howard (0.7-2.0) mmol/L Calcium (8.4-10.2) mg/dL Total Bilirubin (0.2-1.3) mg/dL AST (17-59) U/L ALT (4-49) U/L Alkaline Phosphatase (38-126) U/L Total Protein (6.3-8.2) g/dL Albumin (3.5-5.0) g/dL Urine Color Yellow Urine Appearance Cloudy (Clear) Urine pH 6.5 (5.0-8.0) Ur Specific [place] 1.018 (1.001-1.035) Urine Protein 3+ H (Negative) Urine Glucose (UA) 3+ H (Negative) Urine Ketones Negative (Negative) Urine Blood Small H (Negative) Urine Nitrite Negative (Negative) Urine Bilirubin Negative (Negative) Urine Urobilinogen 2.0 (<2.0) mg/dL Ur Leukocyte Esterase Negative (Negative) Urine RBC 20 H (0-5) /hpf Urine WBC 3 (0-5) /hpf Ur Squamous Epith Cells 1 (0-4) /hpf Urine Bacteria Rare H (None) /hpf Urine Mucus Rare H (None) /hpf Acetone, Qual (Negative) Influenza Type A (PCR) (Not Detectd) Influenza Type B (PCR) (Not Detectd) RSV (PCR) (Not Detectd) SARS-CoV-2 (PCR) (Not Detectd) Disposition Clinical Impression: Sepsis, Open wound of left heel Disposition: ADMITTED IP TO THIS HOSP Referrals: Devon Mattson MD [Primary Care Provider] - 1-2 days Time of Disposition: 19:26
[2024-05-25] MEDS: ACETAMINOPHEN TAB 500 MG TAB PO STA (13:17)
[2024-05-25] MEDS: IBUPROFEN 600 MG TAB PO STA (13:17)
[2024-05-25] MEDS: cefTRIAXone IN SWFI 1,000 MG/10 ML SYRINGE IVP STA ×2 (13:18)
[2024-05-25] MEDS: SODIUM CHLORIDE 0.9% 500 ML 500 ML IV SCH (13:20)
[2024-05-25 13:25] LABS: Anisocytosis Slight; Basophils % (A) 0 %; Eosinophils % (A) 0 %; HCT 29.7 % (39.0-53.0); HGB 9.5 gm/dL (13.0-17.5); Hypochromasia Marked; Lymphocytes # (A) 0.5 k/uL (1.0-4.8); Lymphocytes % (A) 4 %; MCH 29.7 pg (25.0-35.0); MCHC 31.8 g/dL (31.0-37.0); MCV 93.6 fL (80.0-100.0); Mean Platelet Volume 8.1; Monocytes # (A) 0.4 k/uL (0-1.0); Monocytes % (A) 3 %; Neutrophils # (A) 13.2 k/uL (1.3-7.7); Neutrophils % (A) 92 %; Platelet Count 228 k/uL (150-450); RBC 3.18 m/uL (4.30-5.90); RDW 17.7 % (11.5-15.5); WBC 14.4 k/uL (3.8-10.6)
[2024-05-25 13:37] LABS: ALT 17 U/L (4-49); AST 18 U/L (17-59); African American GFR (CKD) 13 (>60 ml/min/1.73 sqM); Albumin 3.5 g/dL (3.5-5.0); Alkaline Phosphatase 268 U/L (38-126); Anion Gap 12 mmol/L; Blood Urea Nitrogen 45 mg/dL (9-20); Carbon Dioxide 24 mmol/L (22-30); Chloride 92 mmol/L (98-107); Glucose 372 mg/dL (74-99); Non-African American GFR(CKD) 11 (>60 ml/min/1.73 sqM); Potassium 5.8 mmol/L (3.5-5.1); Sodium 128 mmol/L (137-145); Total Bilirubin 0.9 mg/dL (0.2-1.3); Total Protein 7.6 g/dL (6.3-8.2)
[2024-05-25 13:39] LABS: INR 1.2 (<1.2)
--- NOTE | 2024-05-25 13:56 | XR ---
EXAMINATION TYPE: XR chest 2V DATE OF EXAM: 05/25/2024 COMPARISON: 05/07/2024 CLINICAL INDICATION: Male, 58 years old with history of Fever; , TECHNIQUE: XR chest 2V views of the chest. FINDINGS: Heart is markedly enlarged. There is atherosclerotic change of the aorta. Left-sided dialysis cathete r is seen and there is a left lower lobe consolidation. Elevated right hemidiaphragm. Diffuse osteope angus and arthropathy of the shoulders. Degenerative change of the spine. Question surgical metallic cl ip in upper abdomen. Underlying COPD suspected. IMPRESSION: 1. Marked cardiomegaly. Subsegmental left retrocardiac atelectasis favored over pneumonia correlate c linically. [facility], , 05/25/2024 1:54 PM
[2024-05-25] MEDS: HYDROmorphone 0.5 MG/0.5 ML SYRINGE IVP STA (15:39)
[2024-05-25 16:18] LABS: Appearance,Urine Cloudy (Clear); Bacteria,Urine Rare /hpf; Bilirubin,Urine Negative (Negative); Blood,Urine Small (Negative); Color,Urine Yellow; Glucose,Urine (UA) 3+ (Negative); Ketones,Urine Negative (Negative); Leukocyte Esterase,Urine Negative (Negative); Mucus,Urine Rare /hpf; Nitrite,Urine Negative (Negative); PH, Urine 6.5 (5.0-8.0); Protein,Urine 3+ (Negative); RBC,Urine 20 /hpf (0-5); Specific Gravity,Urine 1.018 (1.001-1.035); Squamous Epithelial Cell,Urine 1 /hpf (0-4); WBC,Urine 3 /hpf (0-5)
[2024-05-25] MEDS ORDERED: VANCOMYCIN IV PER PHARMACY 1 EACH MISC MISCELLANE PRN (16:48)
--- NOTE | 2024-05-25 17:54 | XR ---
EXAMINATION TYPE: XR foot complete RT DATE OF EXAM: 05/25/2024 COMPARISON: None HISTORY: Wound to right foot TECHNIQUE: 3 view right foot FINDINGS: Soft tissue swelling is over the fifth metatarsophalangeal joint region. Vascular calcifica tions are noted. Cortex appears intact. No suspicious erosions evident. No acute fractures are identi fied. Small calcaneal heel spur is present. IMPRESSION: 1. Soft tissue swelling fifth metatarsal phalangeal joint space. 2. No suspicious changes to suggest osteomyelitis. Follow-up 3 phase bone scan can be performed as cl inically indicated [facility], Workstation: [email or web address], 05/25/2024 5:52 PM
[2024-05-25] MEDS: VANCOMYCIN 1,500 MG in SODIUM CHLORIDE 0.9% 500 ML 500 ML IVPB STA (18:15)
[2024-05-25] MEDS: SODIUM CHLORIDE 0.9% 1,000 ML IV ONE (20:18)
--- NOTE | 2024-05-25 20:58 | CT ---
EXAMINATION TYPE: CT brain wo con DATE OF EXAM: 05/25/2024 COMPARISON: None INDICATION: Altered mental status, sepsis. DLP: 1177.7 mGycm, Automated exposure control for dose reduction was used. CONTRAST: None CT of the brain is performed utilizing 3 mm thick sections through the posterior fossa and 3 mm thick sections through the remaining calvarium. Study is performed within 24 hours of arrival to the hosp ital. No abnormal hyperdensity is present to suggest an acute intracranial hemorrhage. No mass lesion is evident. No acute infarcts are evident. Ventricles and sulci are appropriate for the patient age. Paranasal sinuses and mastoid air cells within the [id number] are clear. IMPRESSION: 1. No acute intracranial process. Follow up MRI can be performed as clinically indicated. [facility], Workstation: [email or web address], 05/25/2024 8:55 PM
[2024-05-25] MEDS ORDERED: ACETAMINOPHEN TAB 500 MG TAB PO PRN (21:13)
[2024-05-25 21:15] LABS: Glucose,Whole Blood 383 mg/dL (70-110)
[2024-05-25] MEDS: HYDROcodone/APAP 5-325MG 1 EACH TAB PO PRN (21:25)
[2024-05-25] MEDS: hydrALAZINE HCL 50 MG TAB PO SCH (21:26)
[2024-05-25] MEDS: ATORVASTATIN 20 MG TAB PO SCH (21:26)
[2024-05-25] MEDS: carvediloL 12.5 MG TAB PO SCH (21:27)
--- NOTE | 2024-05-25 21:31 | P.HPIM ---
History of Present Illness H&P Date: 05/25/24 History of present illness; 58-year-old male with PMH of ESRD on HD (MWF) via L chest permacath, hypertension, hyperlipidemia, type 2 diabetes (on insulin pump), and systolic heart failure (EF 40%) presented to the ED with complaints of weakness. Patient reports he has been overtly tired sleeping most of the day yesterday but still managed to make it for his Friday dialysis. Reports he had 3 L taken off on Friday at dialysis, and was told to return for additional dialysis today. Reports at wound care yesterday he had cultures taken of his right heel. Reports today it took all his strength just to get out of bed. Patient admits to vomiting a bit and having a bit of diarrhea, also admits to generalized back pain and bilateral hip pain which he states is chronic from arthritis, but denies cough, chills, headache, numbness, weakness, chest pain, and shortness of breath. Reports his was concerned with how weak he was and insisted he come get checked out in the emergency department. Surgical history: Right knee arthroscopy Family history: COPD Social history: Former smoker (quit in 2020), no alcohol use, uses marijuana Gummies Initial lab work from the ER was significant for WBC 14.4, hemoglobin 9.5, MCV 93.6, neutrophils 13.2, sodium 128, potassium 5.8, creatinine 5.31, glucose 372, calcium 8, alkaline phosphatase 268. UA in the ED: 3+ protein, 3+ glucose, small urine blood, 20 leukocyte esterase, and 1 squamous epithelial cell. EKG done in the ER showed heart rate of 88 bpm, no ST segment elevation or depression seen, no T-wave inversions seen. Sinus rhythm, QTc 404. ER CXR: Marked cardiomegaly. Subsegmental left retrocardiac atelectasis favored over pneumonia. ER x-ray right foot: Soft tissue swelling fifth metatarsal phalangeal joint space, no suspicious changes to suggest osteomyelitis. Patient admitted to internal medicine service REVIEW OF SYSTEMS: As stated above in HPI. The rest of the 14-point review of systems is negative. PHYSICAL EXAMINATION: GENERAL: The patient is alert and oriented x3, not in any acute distress. Well developed, well nourished. HEENT: Pupils are round and equally reacting to light. EOMI. No scleral icterus. No conjunctival pallor. Normocephalic, atraumatic. CARDIOVASCULAR: S1 and S2 present. No murmurs, rubs, or gallops. PULMONARY: Chest is clear to auscultation b/l, no wheezing or crackles. ABDOMEN: Soft, nontender, nondistended, normoactive bowel sounds. No palpable organomegaly. MUSCULOSKELETAL: No joint swelling or deformity. EXTREMITIES: No cyanosis, clubbing, pedal edema appreciated bilaterally, no nuchal rigidity appreciated NEUROLOGICAL: Gross neurological examination did not reveal any focal deficits SKIN: No rashes. right heel round 2 cm ulcer with somewhat purulent base but appears unstageable with transudative discharge, dialysis catheter seen on left chest without surrounding skin abnormalities or discharge Assessment:58-year-old male with PMH of ESRD (MWF), hypertension, hyperlipidemia, type 2 diabetes (on insulin pump), and systolic heart failure (EF 40%) presented to the ED with complaints of weakness. Patient being worked up for evaluation of sepsis with potential source right heel ulcer. Plan: #Sepsis: Potentially secondary to right heel ulcer #Generalized weakness, potentially secondary to sepsis versus electrolyte abnormality 05/24 right heel wound culture taken at patient's outpatient wound care has preliminary results growing strep A bacteria T 102.3, WBC 14.4, and neutrophils 13.2 History of positive cultures from left leg wound for group D Enterococcus, coagulase-negative staph, and cornyeform bacteria F/w wound culture of right heel, follow-up on blood cultures ID consulted Continue vancomycin per pharmacy protocol and Rocephin 2 g IVPB every 24 HR #ESRD on HD (MW) #Anemia, microcytic, likely chronic disease, at baseline #Hyponatremia, hypochloremic, chronic, at baseline #Hyperkalemia: Judicious use of IVFs in setting of ESRD w/ HD Continue to monitor BMP Continue to monitor hemoglobin (9.5 on admission), goal hemoglobin greater than 10 in dialysis patient, consider Aranesp Nephrology on consult for dialysis Tomorrow during dialysis consider challenge UF Chronic: #Hypertension: Continue home medications #Hyperlipidemia: Continue home Lipitor 20 mg p.o. at bedtime #Type 2 diabetes (on insulin pump): Will not use pump while admitted, started on NovoLog sliding scale Patient is unsure of insulin units he is taking at home, upon checking pump data from today and yesterday would not show Accu-Cheks #Systolic heart failure (EF 40%) Continue to monitor fluid status Chest x-ray shows no evidence of pleural effusion F: none E: None N: Consistent carbohydrate diet DVT ppx: Heparin 5000 SQ Q8 HR GI ppx: Protonix 40 mg p.o. daily Dispo: Pending clinical course Jennie Roman MD PGY-1 FM Dictation was produced using [employer] dictation software. please excuse any grammatical, word or spelling errors. Past Medical History Past Medical History: Diabetes Mellitus, Dialysis, Renal Disease Additional Past Medical History / Comment(s): IDDM type I on insulin pump, DKA, chronic kidney disease, bilateral lower extremity edema. HD on MWF History of Any Multi-Drug Resistant Organisms: None Reported Past Surgical History: No Surgical Hx Reported Additional Past Surgical History / Comment(s): R knee arthroscopy, circumcism, HD cath in chest Past Anesthesia/Blood Transfusion Reactions: No Reported Reaction Past Psychological History: No Psychological Hx Reported Smoking Status: Former smoker Past Alcohol Use History: None Reported Past Drug Use History: None Reported - Past Family History Mother History Unknown: Yes Family Medical History: COPD Father Family Medical History: No Reported History Additional Family Medical History / Comment(s): Mother is healthy. Medications and Allergies Home Medications Medication Instructions Recorded Confirmed Type Insulin Aspart (For Pump) [NovoLOG 0.01 unit SQ-PUMP CONTINUOUS 02/21/23 05/25/24 History (For Pump)] FLUoxetine HCL [PROzac] 10 mg PO DAILY 07/14/23 05/25/24 History Atorvastatin [Lipitor] 20 mg PO HS 11/14/23 05/25/24 History Folic Acid/Vit B Complex and C 0.8 mg PO DAILY 11/14/23 05/25/24 History [Lilian-Marsha Tablet] amLODIPine [Norvasc] 10 mg PO DAILY 11/14/23 05/25/24 History hydrALAZINE HCL [Apresoline] 100 mg PO TID 11/14/23 05/25/24 History Aspirin 81 mg PO DAILY 30 Days #30 tab 11/28/23 05/25/24 Rx Torsemide [Demadex] 100 mg PO DAILY 02/09/24 05/25/24 History carvediloL [Coreg] 25 mg PO BID 04/09/24 05/25/24 History Doxazosin [Cardura] 4 mg PO DAILY 05/06/24 05/25/24 History Isosorbide Mononitrate ER [Imdur] 60 mg PO DAILY 05/06/24 05/25/24 History Midodrine [ProAmatine] 5 mg PO DAILY PRN 05/06/24 05/25/24 History Valsartan 160 mg PO DAILY 05/06/24 05/25/24 History cloNIDine 0.1 MG/24HR PATCH 1 patch TRANSDERM WE 05/06/24 05/25/24 History [Catapres-TTS] Allergies Allergy/AdvReac Type Severity Reaction Status Date / Time Iodinated Contrast Media Allergy Anaphylaxis Verified 05/25/24 13:40 Physical Exam Vitals: Vital Signs Temp Pulse Resp BP Pulse Ox 05/25/24 18:41 97.3 F L 66 14 138/77 92 L 05/25/24 15:15 98.7 F 77 18 132/74 92 L 05/25/24 14:38 85 16 157/75 98 05/25/24 11:55 102.3 F H 91 22 151/80 94 L Intake and Output 05/25/24 05/25/24 05/25/24 06:59 14:59 22:59 Other: Weight 90 kg Results CBC & Chem 7: 05/25/24 13:02 05/25/24 13:02 Labs: Abnormal Lab Results - Last 24 Hours (Table) 05/25/24 05/25/24 05/25/24 Range/Units 11:59 13:02 13:02 WBC 14.4 H (3.8-10.6) k/uL RBC 3.18 L (4.30-5.90) m/uL Hgb 9.5 L (13.0-17.5) gm/dL Hct 29.7 L (39.0-53.0) % RDW 17.7 H (11.5-15.5) % Neutrophils # 13.2 H (1.3-7.7) k/uL Lymphocytes # 0.5 L (1.0-4.8) k/uL PT 13.0 H (10.0-12.5) sec INR 1.2 H (<1.2) Sodium (137-145) mmol/L Potassium (3.5-5.1) mmol/L Chloride (98-107) mmol/L BUN (9-20) mg/dL Creatinine (0.66-1.25) mg/dL Glucose (74-99) mg/dL POC Glucose (mg/dL) 390 H (70-110) mg/dL Calcium (8.4-10.2) mg/dL Alkaline Phosphatase (38-126) U/L Urine Protein (Negative) Urine Glucose (UA) (Negative) Urine Blood (Negative) Urine RBC (0-5) /hpf Urine Bacteria (None) /hpf Urine Mucus (None) /hpf 05/25/24 05/25/24 Range/Units 13:02 15:43 WBC (3.8-10.6) k/uL RBC (4.30-5.90) m/uL Hgb (13.0-17.5) gm/dL Hct (39.0-53.0) % RDW (11.5-15.5) % Neutrophils # (1.3-7.7) k/uL Lymphocytes # (1.0-4.8) k/uL PT (10.0-12.5) sec INR (<1.2) Sodium 128 L (137-145) mmol/L Potassium 5.8 H (3.5-5.1) mmol/L Chloride 92 L (98-107) mmol/L BUN 45 H (9-20) mg/dL Creatinine 5.31 H (0.66-1.25) mg/dL Glucose 372 H (74-99) mg/dL POC Glucose (mg/dL) (70-110) mg/dL Calcium 8.0 L (8.4-10.2) mg/dL Alkaline Phosphatase 268 H (38-126) U/L Urine Protein 3+ H (Negative) Urine Glucose (UA) 3+ H (Negative) Urine Blood Small H (Negative) Urine RBC 20 H (0-5) /hpf Urine Bacteria Rare H (None) /hpf Urine Mucus Rare H (None) /hpf
[2024-05-25] MEDS: INSULIN ASPART (NovoLOG) 100 UNIT/ML VIAL SQ SCH (22:01)
[2024-05-26 06:38] LABS: Glucose,Whole Blood 144 mg/dL (70-110)
[2024-05-26] MEDS: VANCOMYCIN 1,500 MG in SODIUM CHLORIDE 0.9% 500 ML 500 ML IVPB ONE (06:45)
[2024-05-26] MEDS: PANTOPRAZOLE 40 MG TABLET PO SCH (06:50)
[2024-05-26] MEDS ORDERED: INSULIN ASPART (NovoLOG) 100 UNIT/ML VIAL SQ SCH (07:30)
[2024-05-26] MEDS ORDERED: ACETAMINOPHEN TAB 325 MG TAB PO PRN (08:33)
[2024-05-26 08:47] LABS: Anisocytosis Slight; Basophils % (A) 0 %; Eosinophils # (A) 0.1 k/uL (0-0.7); Eosinophils % (A) 1 %; HCT 28.9 % (39.0-53.0); HGB 8.7 gm/dL (13.0-17.5); Hypochromasia Marked; Lymphocytes # (A) 0.6 k/uL (1.0-4.8); Lymphocytes % (A) 7 %; MCH 28.8 pg (25.0-35.0); MCHC 30.2 g/dL (31.0-37.0); MCV 95.5 fL (80.0-100.0); Mean Platelet Volume 8.8; Monocytes # (A) 0.4 k/uL (0-1.0); Monocytes % (A) 5 %; Neutrophils # (A) 7.6 k/uL (1.3-7.7); Neutrophils % (A) 86 %; Platelet Count 215 k/uL (150-450); RBC 3.03 m/uL (4.30-5.90); RDW 17.6 % (11.5-15.5); WBC 8.9 k/uL (3.8-10.6)
[2024-05-26] MEDS ORDERED: MIDODRINE 5 MG TAB PO PRN (08:50)
[2024-05-26] MEDS ORDERED: ENOXAPARIN 40 MG/0.4 ML SYRINGE SQ SCH (09:00)
[2024-05-26] MEDS: FLUoxetine HCL 10 MG CAP PO SCH (09:13)
[2024-05-26] MEDS: ASPIRIN 81 MG PO SCH (09:13)
[2024-05-26] MEDS: ISOSORBIDE MONONITRATE ER 60 MG TAB.ER.24H PO SCH (09:13)
[2024-05-26] MEDS: amLODIPine 10 MG TAB PO SCH (09:13)
[2024-05-26] MEDS: DOXAZOSIN 4 MG TAB PO SCH (09:14)
[2024-05-26] MEDS: TORSEMIDE 20 MG TAB PO SCH (09:14)
[2024-05-26] MEDS: FOLIC ACID-VIT B COMPLEX-VIT C 1 CAP PO SCH (09:14)
[2024-05-26] MEDS: VALSARTAN 160 MG TAB PO SCH (09:14)
[2024-05-26] MEDS: HEPARIN SODIUM,PORCINE 5,000 UNIT/ML 1 ML VIAL SQ SCH (09:15)
[2024-05-26] MEDS: HYDROcodone/APAP 5-325MG 1 EACH TAB PO PRN (09:16)
[2024-05-26 11:02] LABS: Glucose,Whole Blood 288 mg/dL (70-110)
--- NOTE | 2024-05-26 11:08 | P.NPCON ---
History of Present Illness - Reason for Consult end stage renal disease - History of Present Illness Reason for consultation: End-stage renal disease History of present illness: Patient is a 58-year-old male seen in renal consultation for end-stage renal disease. He is maintained on hemodialysis on Friday schedule. Last dialysis was on Friday. Patient presented to the hospital due to generally not feeling well. Patient does admit to pain on his right foot. Patient states he has a wound care and follows at wound care on a weekly basis. He denies being on any antibiotics outpatient. Blood cultures were positive for group A strep. He denies chest pain or shortness of breath. Denies any drainage from his dialysis catheter site. He did have a fever of 102.3 F on admission. Makes little urine. Hemodynamically stable. On room air. No vomiting or diarrhea. Patient has longstanding history of diabetes. Denies history of coronary artery disease. Vital signs are stable. General: No acute distress. HEENT: Head exam is unremarkable. LUNGS: No audible rhonchi or wheezes. HEART: Rate and Rhythm are regular. ABDOMEN: Nontender. EXTREMITITES: No edema. Past Medical History Past Medical History: Diabetes Mellitus, Dialysis, Renal Disease Additional Past Medical History / Comment(s): IDDM type I on insulin pump, DKA, chronic kidney disease, bilateral lower extremity edema. HD on MWF History of Any Multi-Drug Resistant Organisms: None Reported Past Surgical History: No Surgical Hx Reported Additional Past Surgical History / Comment(s): R knee arthroscopy, circumcism, HD cath in chest Past Anesthesia/Blood Transfusion Reactions: No Reported Reaction Past Psychological History: No Psychological Hx Reported Smoking Status: Former smoker Past Alcohol Use History: None Reported Past Drug Use History: None Reported - Past Family History Mother History Unknown: Yes Family Medical History: COPD Father Family Medical History: No Reported History Additional Family Medical History / Comment(s): Mother is healthy. Medications and Allergies Home Medications Medication Instructions Recorded Confirmed Type Insulin Aspart (For Pump) [NovoLOG 0.01 unit SQ-PUMP CONTINUOUS 02/21/23 05/25/24 History (For Pump)] FLUoxetine HCL [PROzac] 10 mg PO DAILY 07/14/23 05/25/24 History Atorvastatin [Lipitor] 20 mg PO HS 11/14/23 05/25/24 History Folic Acid/Vit B Complex and C 0.8 mg PO DAILY 11/14/23 05/25/24 History [Lilian-Marsha Tablet] amLODIPine [Norvasc] 10 mg PO DAILY 11/14/23 05/25/24 History hydrALAZINE HCL [Apresoline] 100 mg PO TID 11/14/23 05/25/24 History Aspirin 81 mg PO DAILY 30 Days #30 tab 11/28/23 05/25/24 Rx Torsemide [Demadex] 100 mg PO DAILY 02/09/24 05/25/24 History carvediloL [Coreg] 25 mg PO BID 04/09/24 05/25/24 History Doxazosin [Cardura] 4 mg PO DAILY 05/06/24 05/25/24 History Isosorbide Mononitrate ER [Imdur] 60 mg PO DAILY 05/06/24 05/25/24 History Midodrine [ProAmatine] 5 mg PO DAILY PRN 05/06/24 05/25/24 History Valsartan 160 mg PO DAILY 05/06/24 05/25/24 History cloNIDine 0.1 MG/24HR PATCH 1 patch TRANSDERM WE 05/06/24 05/25/24 History [Catapres-TTS] Allergies Allergy/AdvReac Type Severity Reaction Status Date / Time Iodinated Contrast Media Allergy Anaphylaxis Verified 05/25/24 13:40 Physical Exam Vitals: Vital Signs Temp Pulse Pulse Resp BP BP Pulse Ox 05/26/24 08:00 97.3 F L 95 16 128/69 98 05/26/24 07:25 95 16 05/26/24 00:55 97.5 F L 56 L 18 106/46 97 05/25/24 20:18 97.6 F 64 17 146/90 93 L 05/25/24 18:41 97.3 F L 66 14 138/77 92 L 05/25/24 15:15 98.7 F 77 18 132/74 92 L 05/25/24 14:38 85 16 157/75 98 05/25/24 11:55 102.3 F H 91 22 151/80 94 L Intake and Output 05/25/24 05/26/24 05/26/24 22:59 06:59 14:59 Other: # Voids 2 # Bowel Movements 1 Weight 90 kg Results - Lab Results Most recent lab results Calcium 8.0 mg/dL (8.4-10.2) L 05/25/24 13:02 05/26/24 06:53 05/25/24 13:02 Assessment and Plan Plan: Assessment: 1. End-stage renal disease maintained on hemodialysis on Friday schedule via permacath. He has a maturing left upper extremity AV fistula. 2. Right foot wound. On antibiotics. 3. Strep bacteremia. Possible source heel ulcer versus permacath. 4. Hypertension with chronic kidney disease. Controlled. 5. Diabetes mellitus. 6. Chronic kidney disease mineral bone disease. 7. Anemia of chronic kidney disease. 8. Hyponatremia secondary to chronic kidney disease. Hypervolemic. 9. Mild hyperkalemia secondary to chronic kidney disease and hyperglycemia. Also on Diovan. Plan: Hemodialysis today. Blood glucose control. ID consulted. If dialysis catheter is a source, will need to be removed. Will draw cultures from permacath today. Check phosphorus level. Add Aranesp. Monitor vancomycin levels. Dose to be adjusted for renal function. Thank you for the consultation. I will continue to follow the patient with you during his hospital stay.
[2024-05-26] MEDS: MORPHINE SULFATE 4 MG/ML SYRINGE IV PRN (11:18)
[2024-05-26 16:09] LABS: Glucose,Whole Blood 232 mg/dL (70-110)
--- NOTE | 2024-05-26 17:03 | P.PN ---
Subjective Progress Note Date: 05/26/24 Hospital course: Patient is a pleasant 58-year-old male with a past medical history of ESRD on hemodialysis, systolic heart failure with EF of 40%, moderate pulmonary hypertension, hypertension, hyperlipidemia, and insulin-dependent diabetes mellitus on insulin pump. He presented to the hospital on 05/25/2024 with a chief complaint of weakness. Upon arrival to our facility patient underwent evaluation in the emergency department. Vital signs upon arrival show blood pressure 151/80, heart rate 91, respiratory rate 22, temp 102.3 F, and SpO2 of 94% on room air. EKG completed showing normal sinus rhythm at 88 bpm with no significant T wave or ST abnormality showing no signs of acute ischemia upon personal review and interpretation. Chest x-ray completed showing cardiomegaly with subsegmental left retrocardiac atelectasis. X-ray right foot showing soft tissue swelling of fifth metatarsal phalangeal joint space otherwise negative for suspicious changes to suggest osteomyelitis. Labs were completed and reviewed. CBC showing leukocytosis with WBC count of 14.4 and normocytic anemia with hemoglobin of 9.5. Coagulation profile showing elevated PT of 13.0 and INR of 1.2. BMP showing hyponatremia with sodium of 128, hyperkalemia with potassium of 5.8, and hypochloremia with chloride of 92 and elevated renal function with BUN of 45, creatinine of 5.31, and GFR of 11. Blood glucose was 372. Lactic acid was 1.7. Urinalysis negative for infection. Acetone was ne gative. Influenza A, influenza B, RSV, and COVID PCR were negative. Patient was started on broad-spectrum antibiotics with vancomycin and Rocephin. He was admitted under our services with consultation to nephrology and infectious disease. Blood cultures positive preliminarily for strep pyogenes. Patient reports recent AV fistula placement 3 weeks ago and states permacath placed 2 weeks ago. Physical exam: Vital signs reviewed and stable. General: Nontoxic, no distress and appears stated age. Derm: Skin warm and dry, normal coloration for ethnicity. Ulcer right heel Head: Atraumatic, normocephalic and symmetric. Eyes: EOM's intact, no lid lag, and anicteric sclera Mouth: no lip lesions, mucus membranes moist Cardiovascular: regular rate and rhythm with normal S1S2, systolic murmur, positive posterior tibial pulses bilaterally, AV fistula left upper extremity with bruit and thrill in place. Permacath Left anterior chest Lungs: Respirations even, regular, and unlabored on room air. Lungs CTA bilaterally, no rhonchi, no rales, no wheezing, and no accessory muscle usage. Abdominal: soft, nontender to palpation, no guarding, no appreciable organomegaly Ext: ROM intact. No gross muscle atrophy, bilateral lower extremity edema, no contractures Neuro: Speech clear, face symmetrical and CN II-XII grossly intact with no noted focal neuro deficits Psych: Alert and oriented to person, place, time, and situation. Appropriate and pleasant affect. Assessment and Plan of Care: Bacteremia Infected diabetic ulcer of right heel Sepsis upon arrival, secondary to above -Blood culture preliminary results showing positive for strep pyogenes (group A strep). Patient to continue Rocephin 2 g every 24 hours pending further recommendation from infectious disease and final culture and sensitivity reports. -Infectious disease consulted, appreciate recommendations -Echocardiogram to be completed to rule out vegetative growth -Repeat blood cultures until negative -Follow-up on final blood culture and sensitivity report -Wound cultures -Symptomatic care and pain management with Tylenol 650 mg every 6 hours as needed for mild pain, Wylie 5/325 mg tablets every 4 hours as needed for moderate pain, and morphine 4 mg IVP every 4 hours as needed for severe pain. ESRD on hemodialysis Anemia of chronic disease, secondary to ESRD Hyperkalemia, secondary to above Hyponatremia secondary to hypervolemia -Nephrology following and managing hemodialysis. -Continue torsemide 100 mg daily. -Patient is scheduled to undergo hemodialysis, will repeat BMP later today after dialysis. Insulin Dependent Diabetes mellitus with hyperglycemia -Patient to continue use of personal insulin pump. Continue Accu-Cheks ACHS Chronic systolic heart failure with a EF of 40%. -Patient to continue cardiac medication regimen with aspirin 81 mg daily, amlodipine 10 mg daily, atorvastatin 20 mg daily, carvedilol 25 mg twice daily, hydralazine 100 mg 3 times daily, valsartan 160 mg daily, isosorbide mononitrate 60 mg daily, clonidine patch weekly with dose of 0.1 mg every 24 hours, and torsemide 100 mg daily. Patient also to be given midodrine 5 mg daily as needed for hypotension. Hypertension. Continue medication regimen with amlodipine 10 mg daily,carvedilol 25 mg twice daily, hydralazine 100 mg 3 times daily, clonidine patch weekly with dose of 0.1 mg every 24 hours, and torsemide 100 mg daily. Hyperlipidemia. Continue medication regimen with atorvastatin 20 mg daily. Data and imaging reviewed: -Blood culture preliminary results showing positive for strep pyogenes (group A strep). -Labs completed and reviewed. CBC showing resolution of leukocytosis with WBC count of 8.9 and normocytic anemia with hemoglobin of 8.7. CRP is 15.50. -Vital signs reviewed. Blood pressure 128/69, heart rate 95, respiratory rate 16, temp 97.3 F, and SpO2 of 98% on room air. CODE STATUS: Full code DVT prophylaxis: Heparin Anticipated discharge date: Pending clinical course Anticipated discharge place: Home Patient was seen independently by Nurse Pracitioner. This document was prepared using [employer] dictation software. Please allow for errors in middle school baseball [employer], while rare they do occur. Anton Salgado NP rendered care for this patient independently, reviewed the findings and plan as documented in the note above and agree with plan. I did not physically speak with or examine the patient on this date. Objective - Vital Signs Vital signs: Vital Signs Temp 97.3 F L 05/26/24 08:00 Pulse 95 05/26/24 08:00 Resp 16 05/26/24 08:00 BP 128/69 05/26/24 08:00 Pulse Ox 98 05/26/24 08:00 FiO2 Intake & Output 05/25/24 05/26/24 05/26/24 18:59 06:59 18:59 Weight 90 kg 90 kg Other: # Voids 2 # Bowel Movements 1 - Labs CBC & Chem 7: 05/26/24 06:53 05/25/24 13:02 Labs: Abnormal Lab Results - Last 24 Hours (Table) 05/25/24 05/25/24 05/25/24 Range/Units 11:59 13:02 13:02 WBC 14.4 H (3.8-10.6) k/uL RBC 3.18 L (4.30-5.90) m/uL Hgb 9.5 L (13.0-17.5) gm/dL Hct 29.7 L (39.0-53.0) % MCHC (31.0-37.0) g/dL RDW 17.7 H (11.5-15.5) % Neutrophils # 13.2 H (1.3-7.7) k/uL Lymphocytes # 0.5 L (1.0-4.8) k/uL PT 13.0 H (10.0-12.5) sec INR 1.2 H (<1.2) Sodium (137-145) mmol/L Potassium (3.5-5.1) mmol/L Chloride (98-107) mmol/L BUN (9-20) mg/dL Creatinine (0.66-1.25) mg/dL Glucose (74-99) mg/dL POC Glucose (mg/dL) 390 H (70-110) mg/dL Calcium (8.4-10.2) mg/dL Alkaline Phosphatase (38-126) U/L Urine Protein (Negative) Urine Glucose (UA) (Negative) Urine Blood (Negative) Urine RBC (0-5) /hpf Urine Bacteria (None) /hpf Urine Mucus (None) /hpf 05/25/24 05/25/24 05/25/24 Range/Units 13:02 15:43 21:13 WBC (3.8-10.6) k/uL RBC (4.30-5.90) m/uL Hgb (13.0-17.5) gm/dL Hct (39.0-53.0) % MCHC (31.0-37.0) g/dL RDW (11.5-15.5) % Neutrophils # (1.3-7.7) k/uL Lymphocytes # (1.0-4.8) k/uL PT (10.0-12.5) sec INR (<1.2) Sodium 128 L (137-145) mmol/L Potassium 5.8 H (3.5-5.1) mmol/L Chloride 92 L (98-107) mmol/L BUN 45 H (9-20) mg/dL Creatinine 5.31 H (0.66-1.25) mg/dL Glucose 372 H (74-99) mg/dL POC Glucose (mg/dL) 383 H (70-110) mg/dL Calcium 8.0 L (8.4-10.2) mg/dL Alkaline Phosphatase 268 H (38-126) U/L Urine Protein 3+ H (Negative) Urine Glucose (UA) 3+ H (Negative) Urine Blood Small H (Negative) Urine RBC 20 H (0-5) /hpf Urine Bacteria Rare H (None) /hpf Urine Mucus Rare H (None) /hpf 05/26/24 05/26/24 Range/Units 06:36 06:53 WBC (3.8-10.6) k/uL RBC 3.03 L (4.30-5.90) m/uL Hgb 8.7 L (13.0-17.5) gm/dL Hct 28.9 L (39.0-53.0) % MCHC 30.2 L (31.0-37.0) g/dL RDW 17.6 H (11.5-15.5) % Neutrophils # (1.3-7.7) k/uL Lymphocytes # 0.6 L (1.0-4.8) k/uL PT (10.0-12.5) sec INR (<1.2) Sodium (137-145) mmol/L Potassium (3.5-5.1) mmol/L Chloride (98-107) mmol/L BUN (9-20) mg/dL Creatinine (0.66-1.25) mg/dL Glucose (74-99) mg/dL POC Glucose (mg/dL) 144 H (70-110) mg/dL Calcium (8.4-10.2) mg/dL Alkaline Phosphatase (38-126) U/L Urine Protein (Negative) Urine Glucose (UA) (Negative) Urine Blood (Negative) Urine RBC (0-5) /hpf Urine Bacteria (None) /hpf Urine Mucus (None) /hpf Microbiology - Last 24 Hours (Table) 05/25/24 12:55 Blood Culture Gram Stain - Preliminary Blood Blood Culture - Preliminary Molecular ID
[2024-05-26] MEDS: DARBEPOETIN ALFA 40 MCG/0.4 ML SYRINGE SQ SCH (17:31)
[2024-05-26 19:13] LABS: African American GFR (CKD) 25 (>60 ml/min/1.73 sqM); Anion Gap 5 mmol/L; Blood Urea Nitrogen 27 mg/dL (9-20); Calcium 7.2 mg/dL (8.4-10.2); Carbon Dioxide 29 mmol/L (22-30); Chloride 97 mmol/L (98-107); Glucose 191 mg/dL (74-99); Non-African American GFR(CKD) 22 (>60 ml/min/1.73 sqM); Potassium 3.5 mmol/L (3.5-5.1); Sodium 131 mmol/L (137-145)
[2024-05-26 21:04] LABS: Glucose,Whole Blood 224 mg/dL (70-110)
[2024-05-26] MEDS: Insulin Aspart (For Pump) 100 UNIT/ML VIAL SQ-PUMP SCH ×2 (21:06→23:43)
[2024-05-26] MEDS: cloNIDine 0.1 MG/24HR PATCH TRANSDERM SCH (21:08)
[2024-05-26] MEDS: AMPICILLIN-SULBACTAM 3 GM in SODIUM CHLORIDE 0.9% 100 ML IVPB SCH (21:08)
[2024-05-27 06:59] LABS: Glucose,Whole Blood 322 mg/dL (70-110)
[2024-05-27 08:44] LABS: ALT 17 U/L (10-49); AST 23 U/L (14-35); Albumin 2.5 g/dL (3.8-4.9); Albumin/Globulin Ratio 0.81 Ratio (1.60-3.17); Alkaline Phosphatase 167 U/L (41-126); BUN/Creat Ratio 7.29 Ratio (12.00-20.00); Blood Urea Nitrogen 30.6 mg/dL (9.0-27.0); Calcium 7.3 mg/dL (8.7-10.3); Chloride 94 mmol/L (96-109); Globulin 3.1 g/dL (1.6-3.3); Glucose 329 mg/dL (70-110); Magnesium 1.9 mg/dL (1.5-2.4); Potassium 4.2 mmol/L (3.5-5.5); Sodium 131 mmol/L (135-145); Total Bilirubin 0.3 mg/dL (0.3-1.2); Total Protein 5.6 g/dL (6.2-8.2)
[2024-05-27 09:20] LABS: HCT 25.4 % (39.6-50.0); HGB 7.9 g/dL (13.0-17.0); MCH 28.7 pg (27.0-32.0); MCHC 31.1 g/dL (32.0-37.0); MCV 92.4 FL (80.0-97.0); Mean Platelet Volume 11.9 FL (9.5-12.2); NRBC Per 100 WBC 0 X 10*3/uL (0.00-0.01); Platelet Count 180 X 10*3/uL (140-440); RBC 2.75 X 10*6/uL (4.40-5.60); WBC 6.84 X 10*3/uL (4.50-10.00)
--- NOTE | 2024-05-27 09:29 | P.CONS ---
History of Present Illness - Reason for Consult Consult date: 05/26/24 Right heel ulcer Requesting physician: Jennie Roman - Chief Complaint Not feeling well x days - History of Present Illness Patient is a 58-year-old male with a past medical history significant for diabetes mellitus insulin-dependent end-stage renal disease on hemodialysis Friday through the left chest wall permacatheter, patient also have a wound to the right heel area that has been there for couple of weeks and to follow with the [facility] wound care center, patient now presenting to the hospital for evaluation of generalized weakness and not feeling well in this patient symptom has been getting worse for the last day or 2 patient did have some chills at home and on presentation to hospital he did have a temperature of 102.3 F patient was not tachycardic hypotensive or hypoxic patient did have a white count of 14.4 with a left shift BUN and creatinine has been elevated potassium was 5.8 liver isms are normal urine has been done hemodialysis patient some hematuria but no significant pyuria influenza RSV COVID testing was negative patient did have x-ray of the foot soft tissue swelling fifth metatarsal phalangeal spaceis, no suspicious bony abnormality patient was started on vancomycin and Rocephin blood cultures came positive with group A strep prompted this consultation patient denies significant headache or URI symptoms no chest pain shortness of breath or cough some nausea vomiting abdominal pain he did have a chronic nonhealing wound to the right heel however did have underlying diabetic neuropathy denies significant pain to the area did have minimal drainage Review of Systems Positive point and negatives has been mentioned in the HPI, complete review of systems was performed and all other systems are negative Past Medical History Past Medical History: Diabetes Mellitus, Dialysis, Renal Disease Additional Past Medical History / Comment(s): IDDM type I on insulin pump, DKA, chronic kidney disease, bilateral lower extremity edema. HD on MWF History of Any Multi-Drug Resistant Organisms: None Reported Past Surgical History: No Surgical Hx Reported Additional Past Surgical History / Comment(s): R knee arthroscopy, circumcism, HD cath in chest Past Anesthesia/Blood Transfusion Reactions: No Reported Reaction Past Psychological History: No Psychological Hx Reported Smoking Status: Former smoker Past Alcohol Use History: None Reported Past Drug Use History: None Reported - Past Family History Mother History Unknown: Yes Family Medical History: COPD Father Family Medical History: No Reported History Additional Family Medical History / Comment(s): Mother is healthy. Medications and Allergies Home Medications Medication Instructions Recorded Confirmed Type Insulin Aspart (For Pump) [NovoLOG 0.01 unit SQ-PUMP CONTINUOUS 02/21/23 05/25/24 History (For Pump)] FLUoxetine HCL [PROzac] 10 mg PO DAILY 07/14/23 05/25/24 History Atorvastatin [Lipitor] 20 mg PO HS 11/14/23 05/25/24 History Folic Acid/Vit B Complex and C 0.8 mg PO DAILY 11/14/23 05/25/24 History [Lilian-Marsha Tablet] amLODIPine [Norvasc] 10 mg PO DAILY 11/14/23 05/25/24 History hydrALAZINE HCL [Apresoline] 100 mg PO TID 11/14/23 05/25/24 History Aspirin 81 mg PO DAILY 30 Days #30 tab 11/28/23 05/25/24 Rx Torsemide [Demadex] 100 mg PO DAILY 02/09/24 05/25/24 History carvediloL [Coreg] 25 mg PO BID 04/09/24 05/25/24 History Doxazosin [Cardura] 4 mg PO DAILY 05/06/24 05/25/24 History Isosorbide Mononitrate ER [Imdur] 60 mg PO DAILY 05/06/24 05/25/24 History Midodrine [ProAmatine] 5 mg PO DAILY PRN 05/06/24 05/25/24 History Valsartan 160 mg PO DAILY 05/06/24 05/25/24 History cloNIDine 0.1 MG/24HR PATCH 1 patch TRANSDERM WE 05/06/24 05/25/24 History [Catapres-TTS] Allergies Allergy/AdvReac Type Severity Reaction Status Date / Time Iodinated Contrast Media Allergy Anaphylaxis Verified 05/25/24 13:40 Physical Exam Vitals: Vital Signs Temp Pulse Pulse Resp BP BP Pulse Ox 05/26/24 08:00 97.3 F L 95 16 128/69 98 05/26/24 07:25 95 16 05/26/24 00:55 97.5 F L 56 L 18 106/46 97 05/25/24 20:18 97.6 F 64 17 146/90 93 L 05/25/24 18:41 97.3 F L 66 14 138/77 92 L 05/25/24 15:15 98.7 F 77 18 132/74 92 L 05/25/24 14:38 85 16 157/75 98 05/25/24 11:55 102.3 F H 91 22 151/80 94 L Intake and Output 05/25/24 05/26/24 05/26/24 22:59 06:59 14:59 Other: # Voids 2 # Bowel Movements 1 Weight 90 kg GENERAL DESCRIPTION: Middle-aged male lying in bed, no distress. No tachypnea or accessory muscle of respiration use. HEENT: Shows Pallor , no scleral icterus. Oral mucous membrane is dry. No pharyngeal erythema or thrush NECK: Trachea central, no thyromegaly. LUNGS: Unlabored breathing. Clear to auscultation anteriorly. No wheeze or crackle. HEART: S1, S2, regular rate and rhythm. No loud murmur ABDOMEN: Soft, no tenderness , guarding or rigidity, no organomegaly EXTREMITIES: Right heel ulcer with some slough tissue surrounding redness SKIN: No rash, no masses palpable. NEUROLOGICAL: The patient is awake, alert, oriented x3, mood and affect normal. Results CBC & Chem 7: 05/27/24 03:07 05/27/24 03:07 Labs: Abnormal Lab Results - Last 24 Hours (Table) 05/25/24 05/25/24 05/25/24 Range/Units 11:59 13:02 13:02 WBC 14.4 H (3.8-10.6) k/uL RBC 3.18 L (4.30-5.90) m/uL Hgb 9.5 L (13.0-17.5) gm/dL Hct 29.7 L (39.0-53.0) % MCHC (31.0-37.0) g/dL RDW 17.7 H (11.5-15.5) % Neutrophils # 13.2 H (1.3-7.7) k/uL Lymphocytes # 0.5 L (1.0-4.8) k/uL PT 13.0 H (10.0-12.5) sec INR 1.2 H (<1.2) Sodium (137-145) mmol/L Potassium (3.5-5.1) mmol/L Chloride (98-107) mmol/L BUN (9-20) mg/dL Creatinine (0.66-1.25) mg/dL Glucose (74-99) mg/dL POC Glucose (mg/dL) 390 H (70-110) mg/dL Calcium (8.4-10.2) mg/dL Alkaline Phosphatase (38-126) U/L Urine Protein (Negative) Urine Glucose (UA) (Negative) Urine Blood (Negative) Urine RBC (0-5) /hpf Urine Bacteria (None) /hpf Urine Mucus (None) /hpf 05/25/24 05/25/24 05/25/24 Range/Units 13:02 15:43 21:13 WBC (3.8-10.6) k/uL RBC (4.30-5.90) m/uL Hgb (13.0-17.5) gm/dL Hct (39.0-53.0) % MCHC (31.0-37.0) g/dL RDW (11.5-15.5) % Neutrophils # (1.3-7.7) k/uL Lymphocytes # (1.0-4.8) k/uL PT (10.0-12.5) sec INR (<1.2) Sodium 128 L (137-145) mmol/L Potassium 5.8 H (3.5-5.1) mmol/L Chloride 92 L (98-107) mmol/L BUN 45 H (9-20) mg/dL Creatinine 5.31 H (0.66-1.25) mg/dL Glucose 372 H (74-99) mg/dL POC Glucose (mg/dL) 383 H (70-110) mg/dL Calcium 8.0 L (8.4-10.2) mg/dL Alkaline Phosphatase 268 H (38-126) U/L Urine Protein 3+ H (Negative) Urine Glucose (UA) 3+ H (Negative) Urine Blood Small H (Negative) Urine RBC 20 H (0-5) /hpf Urine Bacteria Rare H (None) /hpf Urine Mucus Rare H (None) /hpf 05/26/24 05/26/24 Range/Units 06:36 06:53 WBC (3.8-10.6) k/uL RBC 3.03 L (4.30-5.90) m/uL Hgb 8.7 L (13.0-17.5) gm/dL Hct 28.9 L (39.0-53.0) % MCHC 30.2 L (31.0-37.0) g/dL RDW 17.6 H (11.5-15.5) % Neutrophils # (1.3-7.7) k/uL Lymphocytes # 0.6 L (1.0-4.8) k/uL PT (10.0-12.5) sec INR (<1.2) Sodium (137-145) mmol/L Potassium (3.5-5.1) mmol/L Chloride (98-107) mmol/L BUN (9-20) mg/dL Creatinine (0.66-1.25) mg/dL Glucose (74-99) mg/dL POC Glucose (mg/dL) 144 H (70-110) mg/dL Calcium (8.4-10.2) mg/dL Alkaline Phosphatase (38-126) U/L Urine Protein (Negative) Urine Glucose (UA) (Negative) Urine Blood (Negative) Urine RBC (0-5) /hpf Urine Bacteria (None) /hpf Urine Mucus (None) /hpf Microbiology - Last 24 Hours (Table) 05/25/24 12:55 Blood Culture Gram Stain - Preliminary Blood Blood Culture - Preliminary Molecular ID Assessment and Plan (1) Streptococcal bacteremia Current Visit: Yes Status: Acute Code(s): R78.81 - BACTEREMIA; B95.5 - UNSP STREPTOCOCCUS THE CAUSE OF DISEASES CLASSD [facility] SNOMED Code(s): 707291739763 (2) Diabetic ulcer of right foot Current Visit: Yes Status: Acute Code(s): E11.621 - TYPE 2 DIABETES MELLITUS WITH FOOT ULCER; L97.519 - NON-PRS CHRONIC ULCER OTH PRT RIGHT FOOT W UNSP SEVERITY SNOMED Code(s): 089868288 (3) Sepsis Current Visit: Yes Status: Acute Code(s): A41.9 - SEPSIS, UNSPECIFIED ORGANISM SNOMED Code(s): 74666947 Plan: 1patient presented to hospital with sepsis in this patient who did have fever elevated white count and now with streptococcal bacteremia source is likely right heel and diabetic foot ulcer with secondary cellulitis patient did have other possible sources however clinic suspicious low for permacatheter infection unless patient shows evidence of persistent bacteremia and this has been discussed in detail with the admitting as well as nephrology team 2-blood cultures will be repeated document clearance of his bacteremia 3-we will discontinue vancomycin and Rocephin 4-start the patient on Unasyn dose adjusted to the kidney function 5-local wound care to the right heel with Aquacel dressing change q. 48-hour We will follow on clinical condition and cultures to further adjust medication if needed Thank you for this consultation we will follow the patient along with you Dictation was produced using [employer] dictation software. please excuse any grammatical, word or spelling errors. Time with Patient: Greater than 30
--- NOTE | 2024-05-27 09:53 | P.PN ---
Subjective Patient is seen in follow-up for end-stage renal disease. He is maintained on hemodialysis on Friday schedule. No problems with dialysis yesterday. Feels better today overall. Hemodynamically stable. Vital signs are stable. General: No acute distress. HEENT: Head exam is unremarkable. LUNGS: No audible rhonchi or wheezes. HEART: Rate and Rhythm are regular. ABDOMEN: Nontender. EXTREMITITES: No edema. Objective - Vital Signs Vital signs: Vital Signs Temp 97.7 F 05/27/24 06:55 Pulse 65 05/27/24 06:55 Resp 18 05/27/24 06:55 BP 144/73 05/27/24 06:55 Pulse Ox 96 05/27/24 06:55 FiO2 Intake & Output 05/26/24 05/27/24 05/27/24 18:59 06:59 18:59 Intake Total 500 Output Total 8500 Balance -8000 Intake: Hemodialysis 500 Output: Hemodialysis 4500 Hemodialysis Net Amount 4000 Other: Voiding Method Toilet Toilet # Voids 1 - Labs CBC & Chem 7: 05/27/24 03:07 05/27/24 03:07 Labs: Abnormal Lab Results - Last 24 Hours (Table) 05/26/24 05/26/24 05/26/24 Range/Units 06:53 11:01 12:07 RBC (4.40-5.60) X 10*6/uL Hgb (13.0-17.0) g/dL Hct (39.6-50.0) % MCHC (32.0-37.0) g/dL RDW (11.5-14.5) % ESR (0-20) mm/Hr Sodium (137-145) mmol/L Chloride (98-107) mmol/L BUN (9-20) mg/dL Creatinine (0.66-1.25) mg/dL Est GFR (CKD-EPI) (>=60) BUN/Creatinine Ratio (12.00-20.00) Ratio Glucose (74-99) mg/dL POC Glucose (mg/dL) 288 H (70-110) mg/dL Calcium (8.4-10.2) mg/dL Phosphorus 6.0 H (2.5-4.5) mg/dL Alkaline Phosphatase (41-126) U/L C-Reactive Protein 15.50 H (0.00-0.80) mg/dL Total Protein (6.2-8.2) g/dL Albumin (3.8-4.9) g/dL Albumin/Globulin Ratio (1.60-3.17) Ratio 05/26/24 05/26/24 05/26/24 Range/Units 12:07 16:07 18:21 RBC (4.40-5.60) X 10*6/uL Hgb (13.0-17.0) g/dL Hct (39.6-50.0) % MCHC (32.0-37.0) g/dL RDW (11.5-14.5) % ESR 49 H (0-20) mm/Hr Sodium 131 L (137-145) mmol/L Chloride 97 L (98-107) mmol/L BUN 27 H (9-20) mg/dL Creatinine 3.06 H (0.66-1.25) mg/dL Est GFR (CKD-EPI) (>=60) BUN/Creatinine Ratio (12.00-20.00) Ratio Glucose 191 H (74-99) mg/dL POC Glucose (mg/dL) 232 H (70-110) mg/dL Calcium 7.2 L (8.4-10.2) mg/dL Phosphorus (2.5-4.5) mg/dL Alkaline Phosphatase (41-126) U/L C-Reactive Protein (0.00-0.80) mg/dL Total Protein (6.2-8.2) g/dL Albumin (3.8-4.9) g/dL Albumin/Globulin Ratio (1.60-3.17) Ratio 05/26/24 05/27/24 05/27/24 Range/Units 21:03 03:07 03:07 RBC 2.75 L (4.40-5.60) X 10*6/uL Hgb 7.9 L (13.0-17.0) g/dL Hct 25.4 L (39.6-50.0) % MCHC 31.1 L (32.0-37.0) g/dL RDW 18.0 H (11.5-14.5) % ESR (0-20) mm/Hr Sodium 131 L (137-145) mmol/L Chloride 94 L (98-107) mmol/L BUN 30.6 H (9-20) mg/dL Creatinine 4.2 H (0.66-1.25) mg/dL Est GFR (CKD-EPI) 16 L (>=60) BUN/Creatinine Ratio 7.29 L (12.00-20.00) Ratio Glucose 329 H (74-99) mg/dL POC Glucose (mg/dL) 224 H (70-110) mg/dL Calcium 7.3 L (8.4-10.2) mg/dL Phosphorus (2.5-4.5) mg/dL Alkaline Phosphatase 167 H (41-126) U/L C-Reactive Protein (0.00-0.80) mg/dL Total Protein 5.6 L (6.2-8.2) g/dL Albumin 2.5 L (3.8-4.9) g/dL Albumin/Globulin Ratio 0.81 L (1.60-3.17) Ratio 05/27/24 Range/Units 06:58 RBC (4.40-5.60) X 10*6/uL Hgb (13.0-17.0) g/dL Hct (39.6-50.0) % MCHC (32.0-37.0) g/dL RDW (11.5-14.5) % ESR (0-20) mm/Hr Sodium (137-145) mmol/L Chloride (98-107) mmol/L BUN (9-20) mg/dL Creatinine (0.66-1.25) mg/dL Est GFR (CKD-EPI) (>=60) BUN/Creatinine Ratio (12.00-20.00) Ratio Glucose (74-99) mg/dL POC Glucose (mg/dL) 322 H (70-110) mg/dL Calcium (8.4-10.2) mg/dL Phosphorus (2.5-4.5) mg/dL Alkaline Phosphatase (41-126) U/L C-Reactive Protein (0.00-0.80) mg/dL Total Protein (6.2-8.2) g/dL Albumin (3.8-4.9) g/dL Albumin/Globulin Ratio (1.60-3.17) Ratio Microbiology - Last 24 Hours (Table) 05/25/24 12:55 Blood Culture Gram Stain - Preliminary Blood Blood Culture - Preliminary Strep A Molecular ID 05/26/24 11:15 Gram Stain - Preliminary Foot - Right Wound Culture - Preliminary Assessment and Plan Plan: Assessment: 1. End-stage renal disease maintained on hemodialysis on Friday schedule via permacath. He has a maturing left upper extremity AV fistula. 2. Right foot wound. On antibiotics. 3. Strep bacteremia. Possible source heel ulcer versus permacath. 4. Hypertension with chronic kidney disease. Stable. 5. Diabetes mellitus. 6. Chronic kidney disease mineral bone disease. Phosphorus level 6.0 dated May 26, 2024. 7. Anemia of chronic kidney disease. On Aranesp. 8. Hyponatremia secondary to chronic kidney disease. Hypervolemic. 9. Mild hyperkalemia secondary to chronic kidney disease and hyperglycemia. Also on Diovan. Improved. Plan: Hemodialysis tomorrow. Blood glucose control. Follow-up cultures. Add PhosLo with meals.
[2024-05-27] MEDS: CALCIUM ACETATE 667 MG TAB PO SCH (11:08)
[2024-05-27 11:39] LABS: Glucose,Whole Blood 306 mg/dL (70-110)
--- NOTE | 2024-05-27 13:54 | P.PN ---
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 On today's evaluation that is 05/27/2024, the patient did have resolution of his fever and afebrile this morning, the patient is on room air and breathing comfortably, the Pt denies having any chest pain or cough, the patient denies having any abdominal pain no vomiting or any diarrhea, denies any worsening pain to the right heel wound. Patient white count 6.84, creatinine is 4.2 blood culture with group A strep Objective - Vital Signs Vital signs: Vital Signs Temp 97.7 F 05/27/24 06:55 Pulse 65 05/27/24 06:55 Resp 18 05/27/24 06:55 BP 144/73 05/27/24 06:55 Pulse Ox 96 05/27/24 06:55 FiO2 Intake & Output 05/26/24 05/27/24 05/27/24 18:59 06:59 18:59 Intake Total 500 Output Total 8500 Balance -8000 Intake: Hemodialysis 500 Output: Hemodialysis 4500 Hemodialysis Net Amount 4000 Other: Voiding Method Toilet Toilet # Voids 1 - Exam GENERAL DESCRIPTION: Middle-age male lying in bed in no distress RESPIRATORY SYSTEM: Unlabored breathing , decreased breath sounds at bases HEART: S1 S2 regular rate and rhythm , ABDOMEN: Soft , no tenderness EXTREMITIES: Right heel wound is currently dressed - Labs CBC & Chem 7: 05/27/24 03:07 05/27/24 03:07 Labs: Abnormal Lab Results - Last 24 Hours (Table) 05/26/24 05/26/24 05/26/24 Range/Units 06:53 11:01 12:07 RBC (4.40-5.60) X 10*6/uL Hgb (13.0-17.0) g/dL Hct (39.6-50.0) % MCHC (32.0-37.0) g/dL RDW (11.5-14.5) % ESR (0-20) mm/Hr Sodium (137-145) mmol/L Chloride (98-107) mmol/L BUN (9-20) mg/dL Creatinine (0.66-1.25) mg/dL Est GFR (CKD-EPI) (>=60) BUN/Creatinine Ratio (12.00-20.00) Ratio Glucose (74-99) mg/dL POC Glucose (mg/dL) 288 H (70-110) mg/dL Calcium (8.4-10.2) mg/dL Phosphorus 6.0 H (2.5-4.5) mg/dL Alkaline Phosphatase (41-126) U/L C-Reactive Protein 15.50 H (0.00-0.80) mg/dL Total Protein (6.2-8.2) g/dL Albumin (3.8-4.9) g/dL Albumin/Globulin Ratio (1.60-3.17) Ratio 05/26/24 05/26/24 05/26/24 Range/Units 12:07 16:07 18:21 RBC (4.40-5.60) X 10*6/uL Hgb (13.0-17.0) g/dL Hct (39.6-50.0) % MCHC (32.0-37.0) g/dL RDW (11.5-14.5) % ESR 49 H (0-20) mm/Hr Sodium 131 L (137-145) mmol/L Chloride 97 L (98-107) mmol/L BUN 27 H (9-20) mg/dL Creatinine 3.06 H (0.66-1.25) mg/dL Est GFR (CKD-EPI) (>=60) BUN/Creatinine Ratio (12.00-20.00) Ratio Glucose 191 H (74-99) mg/dL POC Glucose (mg/dL) 232 H (70-110) mg/dL Calcium 7.2 L (8.4-10.2) mg/dL Phosphorus (2.5-4.5) mg/dL Alkaline Phosphatase (41-126) U/L C-Reactive Protein (0.00-0.80) mg/dL Total Protein (6.2-8.2) g/dL Albumin (3.8-4.9) g/dL Albumin/Globulin Ratio (1.60-3.17) Ratio 05/26/24 05/27/24 05/27/24 Range/Units 21:03 03:07 03:07 RBC 2.75 L (4.40-5.60) X 10*6/uL Hgb 7.9 L (13.0-17.0) g/dL Hct 25.4 L (39.6-50.0) % MCHC 31.1 L (32.0-37.0) g/dL RDW 18.0 H (11.5-14.5) % ESR (0-20) mm/Hr Sodium 131 L (137-145) mmol/L Chloride 94 L (98-107) mmol/L BUN 30.6 H (9-20) mg/dL Creatinine 4.2 H (0.66-1.25) mg/dL Est GFR (CKD-EPI) 16 L (>=60) BUN/Creatinine Ratio 7.29 L (12.00-20.00) Ratio Glucose 329 H (74-99) mg/dL POC Glucose (mg/dL) 224 H (70-110) mg/dL Calcium 7.3 L (8.4-10.2) mg/dL Phosphorus (2.5-4.5) mg/dL Alkaline Phosphatase 167 H (41-126) U/L C-Reactive Protein (0.00-0.80) mg/dL Total Protein 5.6 L (6.2-8.2) g/dL Albumin 2.5 L (3.8-4.9) g/dL Albumin/Globulin Ratio 0.81 L (1.60-3.17) Ratio 05/27/24 Range/Units 06:58 RBC (4.40-5.60) X 10*6/uL Hgb (13.0-17.0) g/dL Hct (39.6-50.0) % MCHC (32.0-37.0) g/dL RDW (11.5-14.5) % ESR (0-20) mm/Hr Sodium (137-145) mmol/L Chloride (98-107) mmol/L BUN (9-20) mg/dL Creatinine (0.66-1.25) mg/dL Est GFR (CKD-EPI) (>=60) BUN/Creatinine Ratio (12.00-20.00) Ratio Glucose (74-99) mg/dL POC Glucose (mg/dL) 322 H (70-110) mg/dL Calcium (8.4-10.2) mg/dL Phosphorus (2.5-4.5) mg/dL Alkaline Phosphatase (41-126) U/L C-Reactive Protein (0.00-0.80) mg/dL Total Protein (6.2-8.2) g/dL Albumin (3.8-4.9) g/dL Albumin/Globulin Ratio (1.60-3.17) Ratio Microbiology - Last 24 Hours (Table) 05/25/24 12:55 Blood Culture Gram Stain - Preliminary Blood Blood Culture - Preliminary Strep A Molecular ID 05/26/24 11:15 Gram Stain - Preliminary Foot - Right Wound Culture - Preliminary Assessment and Plan (1) Streptococcal bacteremia Current Visit: Yes Status: Acute Code(s): R78.81 - BACTEREMIA; B95.5 - UNSP STREPTOCOCCUS THE CAUSE OF DISEASES CLASSD [facility] SNOMED Code(s): 866747061545 (2) Diabetic ulcer of right foot Current Visit: Yes Status: Acute Code(s): E11.621 - TYPE 2 DIABETES MELLITUS WITH FOOT ULCER; L97.519 - NON-PRS CHRONIC ULCER OTH PRT RIGHT FOOT W UNSP SEVERITY SNOMED Code(s): 190873703 (3) Sepsis Current Visit: Yes Status: Acute Code(s): A41.9 - SEPSIS, UNSPECIFIED ORGANISM SNOMED Code(s): 58665581 Plan: 1patient presented to hospital with sepsis in this patient who did have fever elevated white count and now with streptococcal bacteremia source is likely right heel and diabetic foot ulcer with secondary cellulitis patient did have other possible sources however clinic suspicious low for permacatheter infection unless patient shows evidence of persistent bacteremia and this has been discussed in detail with the admitting as well as nephrology team 2-blood cultures has been repeated document clearance of his bacteremia, local culture done on 05/24/2024 also positive for group B strep 3-patient to continue local wound care to the right heel with Aquacel dressing change q. 48-hour along with Unasyn while waiting for repeat culture to finalize Dictation was produced using [employer] dictation software. please excuse any grammatical, word or spelling errors. Time with Patient: Less than 30
[2024-05-27 14:11] LABS: Glucose,Whole Blood 277 mg/dL (70-110)
--- NOTE | 2024-05-27 16:16 | P.PN ---
Subjective Progress Note Date: 05/27/24 Hospital course: Patient is a pleasant 58-year-old male with a past medical history of ESRD on hemodialysis, systolic heart failure with EF of 40%, moderate pulmonary hypertension, hypertension, hyperlipidemia, and insulin-dependent diabetes mellitus on insulin pump. He presented to the hospital on 05/25/2024 with a chief complaint of weakness. Upon arrival to our facility patient underwent evaluation in the emergency department. Vital signs upon arrival show blood pressure 151/80, heart rate 91, respiratory rate 22, temp 102.3 F, and SpO2 of 94% on room air. EKG completed showing normal sinus rhythm at 88 bpm with no significant T wave or ST abnormality showing no signs of acute ischemia upon personal review and interpretation. Chest x-ray completed showing cardiomegaly with subsegmental left retrocardiac atelectasis. X-ray right foot showing soft tissue swelling of fifth metatarsal phalangeal joint space otherwise negative for suspicious changes to suggest osteomyelitis. Labs were completed and reviewed. CBC showing leukocytosis with WBC count of 14.4 and normocytic anemia with hemoglobin of 9.5. Coagulation profile showing elevated PT of 13.0 and INR of 1.2. BMP showing hyponatremia with sodium of 128, hyperkalemia with potassium of 5.8, and hypochloremia with chloride of 92 and elevated renal function with BUN of 45, creatinine of 5.31, and GFR of 11. Blood glucose was 372. Lactic acid was 1.7. Urinalysis negative for infection. Acetone was negative. Influenza A, influenza B, RSV, and COVID PCR were negative. Patient was started on broad-spectrum antibiotics with vancomycin and Rocephin. He was admitted under our services with consultation to nephrology and infectious disease. Blood cultures positive preliminarily for strep pyogenes. Patient reports recent AV fistula placement 3 weeks ago and states permacath placed 2 weeks ago. Physical exam: Patient seen and fully evaluated at bedside this morning. He reports pain in right foot is much better controlled today. He denies having any other complaints or concerns at this time. Patient updated on current plan and that we are awaiting culture results at this time. Vital signs reviewed and stable. General: Nontoxic, no distress and appears stated age. Derm: Skin warm and dry, normal coloration for ethnicity. Ulcer right heel Head: Atraumatic, normocephalic and symmetric. Eyes: EOM's intact, no lid lag, and anicteric sclera Mouth: no lip lesions, mucus membranes moist Cardiovascular: regular rate and rhythm with normal S1S2, systolic murmur, positive posterior tibial pulses bilaterally, AV fistula left upper extremity with bruit and thrill in place. Permacath Left anterior chest Lungs: Respirations even, regular, and unlabored on room air. Lungs CTA bilaterally, no rhonchi, no rales, no wheezing, and no accessory muscle usage. Abdominal: soft, nontender to palpation, no guarding, no appreciable organomegaly Ext: ROM intact. No gross muscle atrophy, bilateral lower extremity edema, no co ntractures Neuro: Speech clear, face symmetrical and CN II-XII grossly intact with no noted focal neuro deficits Psych: Alert and oriented to person, place, time, and situation. Appropriate and pleasant affect. Assessment and Plan of Care: Bacteremia Infected diabetic ulcer of right heel Sepsis upon arrival, secondary to above -Blood culture preliminary results showing positive for strep pyogenes (group A strep). -Continue IV antibiotics with Unasyn 3 g every 12 hours -Infectious disease consulted, discussed in detail with Dr. Rodriguez. -Echocardiogram to be completed to rule out vegetative growth -Repeat blood cultures until negative -Follow-up on final blood culture and sensitivity report -Wound cultures of right foot/heel obtained and currently pending results. -Symptomatic care and pain management with Tylenol 650 mg every 6 hours as needed for mild pain, [place] 5/325 mg tablets every 4 hours as needed for moderate pain, and morphine 4 mg IVP every 4 hours as needed for severe pain. ESRD on hemodialysis Anemia of chronic disease, secondary to ESRD Hyperkalemia, secondary to above Hyponatremia secondary to hypervolemia, improving after hemodialysis -Nephrology following and managing hemodialysis. Discussed case in detail with Dr. Elliott. -Continue torsemide 100 mg daily. -Patient underwent hemodialysis on 05/26/2024 and to continue Mondays/Fridays unless further instructed by front end software engineer. Insulin Dependent Diabetes mellitus with hyperglycemia Patient to continue use of personal insulin pump. Continue Accu-Cheks ACHS Chronic systolic heart failure with a EF of 40%. Patient to continue cardiac medication regimen with aspirin 81 mg daily, amlodipine 10 mg daily, atorvastatin 20 mg daily, carvedilol 25 mg twice daily, hydralazine 100 mg 3 times daily, valsartan 160 mg daily, isosorbide mononitrate 60 mg daily, clonidine patch weekly with dose of 0.1 mg every 24 hours, and torsemide 100 mg daily. Patient also to be given midodrine 5 mg daily as needed for hypotension. Hypertension. Continue medication regimen with amlodipine 10 mg daily,carvedilol 25 mg twice daily, hydralazine 100 mg 3 times daily, clonidine patch weekly with dose of 0.1 mg every 24 hours, and torsemide 100 mg daily. Hyperlipidemia. Continue medication regimen with atorvastatin 20 mg daily. Data and imaging reviewed: -Blood culture preliminary results showing positive for strep pyogenes (group A strep). -Wound cultures of right foot/heel obtained and currently pending results. -Labs completed and reviewed. CBC showing normocytic anemia with hemoglobin of 7.9. BMP showing mild hypochloremic hyponatremia with sodium of 131 and chloride of 94. Renal function showing BUN of 30.6, creatinine 4.2, and GFR of 16. Blood glucose elevated this morning at 329. Magnesium 1.9. Liver profile showing elevated alkaline phosphatase of 167. Albumin low at 2.5. -Vital signs reviewed. Blood pressure 144/73, heart rate 65, respiratory rate 18, temp 97.7 F, and SpO2 of 96% on room air. CODE STATUS: Full code DVT prophylaxis: Heparin Anticipated discharge date: Pending clinical course Anticipated discharge place: Home Patient was seen independently by Nurse Pracitioner. This document was prepared using [employer] dictation software. Please allow for errors in beehive kiln supervisor, while rare they do occur. Anton Salgado NP rendered care for this patient independently, reviewed the findings and plan as documented in the note above and agree with plan. I did not physically speak with or examine the patient on this date. Objective - Vital Signs Vital signs: Vital Signs Temp 97.7 F 05/27/24 06:55 Pulse 65 05/27/24 06:55 Resp 18 05/27/24 06:55 BP 144/73 05/27/24 06:55 Pulse Ox 96 05/27/24 06:55 FiO2 Intake & Output 05/26/24 05/27/24 05/27/24 18:59 06:59 18:59 Intake Total 500 Output Total 8500 Balance -8000 Intake: Hemodialysis 500 Output: Hemodialysis 4500 Hemodialysis Net Amount 4000 Other: Voiding Method Toilet Toilet # Voids 1 - Labs CBC & Chem 7: 05/27/24 03:07 05/27/24 03:07 Labs: Abnormal Lab Results - Last 24 Hours (Table) 05/26/24 05/26/24 05/26/24 Range/Units 06:53 06:53 11:01 RBC 3.03 L (4.30-5.90) m/uL Hgb 8.7 L (13.0-17.5) gm/dL Hct 28.9 L (39.0-53.0) % MCHC 30.2 L (31.0-37.0) g/dL RDW 17.6 H (11.5-15.5) % Lymphocytes # 0.6 L (1.0-4.8) k/uL ESR (0-20) mm/Hr Sodium (137-145) mmol/L Chloride (98-107) mmol/L BUN (9-20) mg/dL Creatinine (0.66-1.25) mg/dL Glucose (74-99) mg/dL POC Glucose (mg/dL) 288 H (70-110) mg/dL Calcium (8.4-10.2) mg/dL Phosphorus 6.0 H (2.5-4.5) mg/dL C-Reactive Protein (0.00-0.80) mg/dL 05/26/24 05/26/24 05/26/24 Range/Units 12:07 12:07 16:07 RBC (4.30-5.90) m/uL Hgb (13.0-17.5) gm/dL Hct (39.0-53.0) % MCHC (31.0-37.0) g/dL RDW (11.5-15.5) % Lymphocytes # (1.0-4.8) k/uL ESR 49 H (0-20) mm/Hr Sodium (137-145) mmol/L Chloride (98-107) mmol/L BUN (9-20) mg/dL Creatinine (0.66-1.25) mg/dL Glucose (74-99) mg/dL POC Glucose (mg/dL) 232 H (70-110) mg/dL Calcium (8.4-10.2) mg/dL Phosphorus (2.5-4.5) mg/dL C-Reactive Protein 15.50 H (0.00-0.80) mg/dL 05/26/24 05/26/24 05/27/24 Range/Units 18:21 21:03 06:58 RBC (4.30-5.90) m/uL Hgb (13.0-17.5) gm/dL Hct (39.0-53.0) % MCHC (31.0-37.0) g/dL RDW (11.5-15.5) % Lymphocytes # (1.0-4.8) k/uL ESR (0-20) mm/Hr Sodium 131 L (137-145) mmol/L Chloride 97 L (98-107) mmol/L BUN 27 H (9-20) mg/dL Creatinine 3.06 H (0.66-1.25) mg/dL Glucose 191 H (74-99) mg/dL POC Glucose (mg/dL) 224 H 322 H (70-110) mg/dL Calcium 7.2 L (8.4-10.2) mg/dL Phosphorus (2.5-4.5) mg/dL C-Reactive Protein (0.00-0.80) mg/dL Microbiology - Last 24 Hours (Table) 05/26/24 11:15 Gram Stain - Preliminary Foot - Right 05/25/24 12:55 Blood Culture Gram Stain - Preliminary Blood Blood Culture - Preliminary Molecular ID
[2024-05-27 16:41] LABS: Glucose,Whole Blood 287 mg/dL (70-110)
--- NOTE | 2024-05-27 17:31 | CA ---
Transthoracic Echo Report Name: Xander West Age: 58 Gender: M : 1965 Exam Date: 05/27/2024 09:30 Exam Location: [place] [facility] Ht (in): 74 Wt (lb): 198 Ordering Physician: Anton Salgado Attending/Referring Phys: Oceanographer Assistant Kristy Gaytan RDCS Procedure CPT: Indications: rule out vegitative growth, pt gram pos bacteremia Cardiac Hx: Technical Quality: Fair Contrast 1: Total Dose (mL): Contrast 2: Total Dose (mL): MEASUREMENTS (Male / Female) Normal Values 2D ECHO LV Diastolic Diameter PLAX 5.5 cm 4.2 - 5.9 / 3.9 - 5.3 cm LV Systolic Diameter PLAX 3.8 cm IVS Diastolic Thickness 1.8 cm 0.6 - 1.0 / 0.6 - 0.9 cm LVPW Diastolic Thickness 2.0 cm 0.6 - 1.0 / 0.6 - 0.9 cm LV Relative Wall Thickness 0.7 RV Internal Dim ED PLAX 5.5 cm LV Diastolic Volume MOD 4C 175.0 cm??? LV Systolic Volume MOD 4C 112.8 cm??? LV Ejection Fraction MOD 4C 35.5 % LV Cardiac Index MOD 4C 1975.6 cm???/min???m??? LV Diastolic Length 4C 10.4 cm LV Systolic Length 4C 9.3 cm LA Volume 185.0 cm??? 18 - 58 / 22 - 52 cm??? LA Volume Index 85.2 cm???/m??? 16 - 28 cm???/m??? M-MODE Aortic Root Diameter MM 2.9 cm LA Systolic Diameter MM 4.9 cm LA Ao Ratio MM 1.7 AV Cusp Separation MM 2.1 cm DOPPLER AV Peak Velocity 171.6 cm/s AV Peak Gradient 11.8 mmHg AV Mean Velocity 133.4 cm/s AV Mean Gradient 7.5 mmHg AV Velocity Time Integral 38.1 cm LVOT Peak Velocity 122.9 cm/s LVOT Peak Gradient 6.0 mmHg LVOT Velocity Time Integral 27.0 cm MV Area PHT 4.0 cm??? Mitral E Point Velocity 97.1 cm/s Mitral A Point Velocity 76.9 cm/s Mitral E to A Ratio 1.3 MV Deceleration Time 189.6 ms MV E' Velocity 4.6 cm/s Mitral E to MV E' Ratio 20.9 TR Peak Velocity 277.8 cm/s TR Peak Gradient 30.9 mmHg Right Atrial Pressure 20.0 mmHg Pulmonary Artery Systolic Pressu 50.9 mmHg Right Ventricular Systolic Press 50.9 mmHg FINDINGS Left Ventricle Severely increased left ventricular wall thickness. Left ventricular cavity size normal. Severely reduced global left ventricular systolic function. Left ventricular ejection fraction is estimated at 30-35 %. Grade 2 diastolic dysfunction. Right Ventricle Severe right ventricular dilatation. Severe pulmonary hypertension. Right ventricular systolic pressure estimated at 51 mm hg. Right Atrium Moderate right atrial dilatation. Left Atrium Severely increased left atrial volume. Moderately increased left atrial area. Mitral Valve Structurally normal mitral valve. Mild mitral annular calcification. Moderate- to-severe mitral regurgitation. Findings consistent with small vegetation on the posterior leaflet of the mitral valve. Aortic Valve Trileaflet aortic valve. No aortic stenosis. Trace aortic regurgitation. Tricuspid Valve Structurally normal tricuspid valve. Pulmonic Valve Structurally normal pulmonic valve. Trace pulmonic regurgitation. Pericardium Minimal pericardial effusion (normal variant). Aorta Normal size aortic root and proximal ascending aorta. CONCLUSIONS Left ventricular hypertrophy with moderate to severe LV dysfunction with an ejection fraction of 30-35% Severe pulmonary hypertension Moderate left atrial enlargement Moderate to severe mitral regurgitation Mitral valve leaflets appear thickened not rule out vegetation over the posterior mitral leaflet Consider transesophageal echo Small pericardial effusion noted Previewed by: Dr. Myke Means MD (Electronically Signed) Final Date: 27 May 2024 17:30
[2024-05-27 21:01] LABS: Glucose,Whole Blood 176 mg/dL (70-110)
[2024-05-28 06:51] LABS: Glucose,Whole Blood 63 mg/dL (70-110)
[2024-05-28 07:10] LABS: Glucose,Whole Blood 63 mg/dL (70-110)
[2024-05-28 07:29] LABS: Glucose,Whole Blood 73 mg/dL (70-110)
--- NOTE | 2024-05-28 10:13 | P.PN ---
Subjective Patient is seen in follow-up for end-stage renal disease. He is maintained on hemodialysis on Friday schedule. No active complaints. Hemodynamically stable. Vital signs are stable. General: No acute distress. HEENT: Head exam is unremarkable. LUNGS: No audible rhonchi or wheezes. HEART: Rate and Rhythm are regular. ABDOMEN: Nontender. EXTREMITITES: No edema. Objective - Vital Signs Vital signs: Vital Signs Temp 97.5 F L 05/28/24 07:02 Pulse 70 05/28/24 07:55 Resp 18 05/28/24 07:55 BP 148/75 05/28/24 07:02 Pulse Ox 99 05/28/24 07:02 FiO2 Intake & Output 05/27/24 05/28/24 05/28/24 18:59 06:59 18:59 Output Total 300 Balance -300 Output: Urine 300 Other: Voiding Method Toilet Toilet Toilet # Voids 2 # Bowel Movements 0 - Labs CBC & Chem 7: 05/27/24 03:07 05/27/24 03:07 Labs: Abnormal Lab Results - Last 24 Hours (Table) 05/27/24 05/27/24 05/27/24 Range/Units 11:37 14:10 16:40 POC Glucose (mg/dL) 306 H 277 H 287 H (70-110) mg/dL 05/27/24 05/28/24 05/28/24 Range/Units 20:59 06:49 07:08 POC Glucose (mg/dL) 176 H 63 L 63 L (70-110) mg/dL Microbiology - Last 24 Hours (Table) 05/26/24 11:15 Gram Stain - Preliminary Foot - Right Wound Culture - Preliminary Strep A Gram Neg Bacilli 05/26/24 18:21 Blood Culture - Preliminary Blood 05/26/24 12:07 Blood Culture - Preliminary Blood 05/25/24 12:55 Blood Culture Gram Stain - Preliminary Blood Blood Culture - Preliminary Strep A Molecular ID Assessment and Plan Plan: Assessment: 1. End-stage renal disease maintained on hemodialysis on Friday schedule via permacath. He has a maturing left upper extremity AV fistula. 2. Right foot wound. On antibiotics. 3. Strep bacteremia. Likely source heel ulcer is wound culture also positive for strep. 4. Hypertension with chronic kidney disease. Stable. 5. Diabetes mellitus. 6. Chronic kidney disease mineral bone disease. Phosphorus level 6.0 dated May 26, 2024. On PhosLo. 7. Anemia of chronic kidney disease. On Aranesp. 8. Hyponatremia secondary to chronic kidney disease. Hypervolemic. 9. Mild hyperkalemia secondary to chronic kidney disease and hyperglycemia. Also on Diovan. Improved. Plan: Hemodialysis today.
[2024-05-28 11:37] LABS: Glucose,Whole Blood 115 mg/dL (70-110)
--- NOTE | 2024-05-28 12:41 | P.PN ---
Subjective Progress Note Date: 05/28/24 Principal diagnosis: Reason for follow-up is right heel infected wound with bacteremia Patient is a 58-year-old male with a past medical history significant for diabetes mellitus insulin-dependent end-stage renal disease on hemodialysis also with a nonhealing wound to the right heel area presenting to the hospital with not feeling well patient was noticed to be septic with group a strep bacteremia concerning for the right heel infected wound. On today's evaluation that is 05/28/2024, Patient is afebrile patient is currently on room air and denies having any shortness of breath, the patient denies any chest pain or cough, the patient denies any nausea vomiting did not have any abdominal pain and no diarrhea and denies pain to the right heel wound area. No new lab has been obtained today blood culture repeat so far pending Objective - Vital Signs Vital signs: Vital Signs Temp 97.5 F L 05/28/24 07:02 Pulse 70 05/28/24 07:55 Resp 18 05/28/24 07:55 BP 148/75 05/28/24 07:02 Pulse Ox 99 05/28/24 07:02 FiO2 Intake & Output 05/27/24 05/28/24 05/28/24 18:59 06:59 18:59 Output Total 300 Balance -300 Output: Urine 300 Other: Voiding Method Toilet Toilet Toilet # Voids 2 # Bowel Movements 0 - Exam GENERAL DESCRIPTION: Middle-age male lying in bed in no distress RESPIRATORY SYSTEM: Unlabored breathing , decreased breath sounds at bases HEART: S1 S2 regular rate and rhythm , ABDOMEN: Soft , no tenderness EXTREMITIES: Right heel wound is currently dressed - Labs CBC & Chem 7: 05/27/24 03:07 05/27/24 03:07 Labs: Abnormal Lab Results - Last 24 Hours (Table) 05/27/24 05/27/24 05/27/24 Range/Units 11:37 14:10 16:40 POC Glucose (mg/dL) 306 H 277 H 287 H (70-110) mg/dL 05/27/24 05/28/24 05/28/24 Range/Units 20:59 06:49 07:08 POC Glucose (mg/dL) 176 H 63 L 63 L (70-110) mg/dL Microbiology - Last 24 Hours (Table) 05/26/24 11:15 Gram Stain - Preliminary Foot - Right Wound Culture - Preliminary Strep A Gram Neg Bacilli 05/26/24 18:21 Blood Culture - Preliminary Blood 05/26/24 12:07 Blood Culture - Preliminary Blood 05/25/24 12:55 Blood Culture Gram Stain - Preliminary Blood Blood Culture - Preliminary Strep A Molecular ID Assessment and Plan (1) Streptococcal bacteremia Current Visit: Yes Status: Acute Code(s): R78.81 - BACTEREMIA; B95.5 - UNSP STREPTOCOCCUS THE CAUSE OF DISEASES [facility]SD [facility] SNOMED Code(s): 087678771250 (2) Diabetic ulcer of right foot Current Visit: Yes Status: Acute Code(s): E11.621 - TYPE 2 DIABETES MELLITUS WITH FOOT ULCER; L97.519 - NON-PRS CHRONIC ULCER OTH PRT RIGHT FOOT W UNSP SEVERITY SNOMED Code(s): 396357356 (3) Sepsis Current Visit: Yes Status: Acute Code(s): A41.9 - SEPSIS, UNSPECIFIED ORGANISM SNOMED Code(s): 91966019 Plan: 1patient presented to hospital with sepsis in this patient who did have fever elevated white count and now with streptococcal bacteremia source is likely right heel and diabetic foot ulcer with secondary cellulitis patient did have other possible sources however clinic suspicious low for permacatheter infection unless patient shows evidence of persistent bacteremia and this has been discussed in detail with the admitting as well as nephrology team 2-blood cultures has been repeated and so far pending local culture currently growing strep and gram-negative with ID sensitivity pending 3-patient to continue local wound care to the right heel with Aquacel dressing change q. 48-hour along with Unasyn, we are not able to do the bone scan because of nonavailability of the contrast and with his renal failure MRI is not a good choice has to recommend IV antibiotic through the dialysis on discharge with concern for possible deep infection Dictation was produced using [employer] dictation software. please excuse any grammatical, word or spelling errors. Time with Patient: Less than 30
--- NOTE | 2024-05-28 15:54 | P.PN ---
Subjective Progress Note Date: 05/28/24 Hospital course: Patient is a pleasant 58-year-old male with a past medical history of ESRD on hemodialysis, systolic heart failure with EF of 40%, moderate pulmonary hypertension, hypertension, hyperlipidemia, and insulin-dependent diabetes mellitus on insulin pump. He presented to the hospital on 05/25/2024 with a chief complaint of weakness. Upon arrival to our facility patient underwent evaluation in the emergency department. Vital signs upon arrival show blood pressure 151/80, heart rate 91, respiratory rate 22, temp 102.3 F, and SpO2 of 94% on room air. EKG completed showing normal sinus rhythm at 88 bpm with no significant T wave or ST abnormality showing no signs of acute ischemia upon personal review and interpretation. Chest x-ray completed showing cardiomegaly with subsegmental left retrocardiac atelectasis. X-ray right foot showing soft tissue swelling of fifth metatarsal phalangeal joint space otherwise negative for suspicious changes to suggest osteomyelitis. Labs were completed and reviewed. CBC showing leukocytosis with WBC count of 14.4 and normocytic anemia with hemoglobin of 9.5. Coagulation profile showing elevated PT of 13.0 and INR of 1.2. BMP showing hyponatremia with sodium of 128, hyperkalemia with potassium of 5.8, and hypochloremia with chloride of 92 and elevated renal function with BUN of 45, creatinine of 5.31, and GFR of 11. Blood glucose was 372. Lactic acid was 1.7. Urinalysis negative for infection. Acetone was negative. Influenza A, influenza B, RSV, and COVID PCR were negative. Patient was started on broad-spectrum antibiotics with vancomycin and Rocephin. He was admitted under our services with consultation to nephrology and infectious disease. Blood cultures positive preliminarily for strep pyogenes. Patient reports recent AV fistula placement 3 weeks ago and states permacath placed 2 weeks ago. Physical exam: Vital signs reviewed and stable. General: Nontoxic, no distress and appears stated age. Derm: Skin warm and dry, normal coloration for ethnicity. Ulcer right heel Head: Atraumatic, normocephalic and symmetric. Eyes: EOM's intact, no lid lag, and anicteric sclera Mouth: no lip lesions, mucus membranes moist Cardiovascular: regular rate and rhythm with normal S1S2, systolic murmur, positive posterior tibial pulses bilaterally, AV fistula left upper extremity with bruit and thrill in place. Permacath Left anterior chest Lungs: Respirations even, regular, and unlabored on room air. Lungs CTA bilaterally, no rhonchi, no rales, no wheezing, and no accessory muscle usage. Abdominal: soft, nontender to palpation, no guarding, no appreciable organomegaly Ext: ROM intact. No gross muscle atrophy, bilateral lower extremity edema, no contractures Neuro: Speech clear, face symmetrical and CN II-XII grossly intact with no noted focal neuro deficits Psych: Alert and oriented to person, place, time, and situation. Appropriate and pleasant affect. Assessment and Plan of Care: Bacteremia Infected diabetic ulcer of right heel Sepsis upon arrival, secondary to above -Blood culture positive for strep pyogenes (group A strep). -Wound cultures of right foot/heel positive for Group A strep. -Continue IV antibiotics with Unasyn 3 g every 12 hours -Infectious disease consulted, discussed in detail with Dr. Rodriguez. -Echocardiogram showing a reduced EF of 30 to 35% with severe pulmonary hypertension and moderate to severe mitral regurgitation. (Previous echocardiogram completed showing an EF of 40% with mild to moderate mitral regurgitation and mild to moderate pulmonic regurgitation) -Consult placed to cardiology for ALYSIA secondary to worsening ejection fraction and gram-positive bacteremia to rule out endocarditis. -Repeat blood cultures until negative, currently repeat blood cultures showing no growth to date. -Symptomatic care and pain management with Tylenol 650 mg every 6 hours as needed for mild pain, [place] 5/325 mg tablets every 4 hours as needed for moderate pain, and morphine 4 mg IVP every 4 hours as needed for severe pain. ESRD on hemodialysis Anemia of chronic disease, secondary to ESRD Hyperkalemia, secondary to above Hyponatremia secondary to hypervolemia, improving after hemodialysis -Nephrology following and managing hemodialysis. Discussed case in detail with Dr. Elliott. -Continue torsemide 100 mg daily. -Patient underwent hemodialysis on 05/26/2024 and to continue Wednesdays/Fridays unless further instructed by kelly machine operator. Insulin Dependent Diabetes mellitus with hyperglycemia Patient to continue use of personal insulin pump. Continue Accu-Cheks ACHS Chronic systolic heart failure with a EF of 40%. Patient to continue cardiac medication regimen with aspirin 81 mg daily, amlodipine 10 mg daily, atorvastatin 20 mg daily, carvedilol 25 mg twice daily, hydralazine 100 mg 3 times daily, valsartan 160 mg daily, isosorbide mononitrate 60 mg daily, clonidine patch weekly with dose of 0.1 mg every 24 hours, and torsemide 100 mg daily. Patient also to be given midodrine 5 mg daily as needed for hypotension. Hypertension. Continue medication regimen with amlodipine 10 mg daily,carvedilol 25 mg twice daily, hydralazine 100 mg 3 times daily, clonidine patch weekly with dose of 0.1 mg every 24 hours, and torsemide 100 mg daily. Hyperlipidemia. Continue medication regimen with atorvastatin 20 mg daily. Data and imaging reviewed: -Blood culture positive for strep pyogenes (group A strep). -Wound cultures of right foot/heel positive for Group A strep. -Labs reviewed. CBC showing normocytic anemia with hemoglobin of 7.9. BMP showing mild hypochloremic hyponatremia with sodium of 131 and chloride of 94. Renal function showing BUN of 30.6, creatinine 4.2, and GFR of 16. Blood glucose elevated this morning at 329. Magnesium 1.9. Liver profile showing elevated alkaline phosphatase of 167. Albumin low at 2.5. -Vital signs reviewed. Blood pressure 148/75, heart rate 70, respiratory rate 18, temp 97.5 F, and SpO2 of 99% on room air. CODE STATUS: Full code DVT prophylaxis: Heparin Anticipated discharge date: Pending clinical course Anticipated discharge place: Home Patient was seen independently by Nurse Pracitioner. This document was prepared using [employer] dictation software. Please allow for errors in hull sorter, while rare they do occur. Anton Salgado NP rendered care for this patient independently, reviewed the findings and plan as documented in the note above and agree with plan. I did not physically speak with or examine the patient on this date. . Objective - Vital Signs Vital signs: Vital Signs Temp 97.5 F L 05/28/24 07:02 Pulse 70 05/28/24 07:02 Resp 18 05/28/24 07:02 BP 148/75 05/28/24 07:02 Pulse Ox 99 05/28/24 07:02 FiO2 Intake & Output 05/27/24 05/28/24 05/28/24 18:59 06:59 18:59 Output Total 300 Balance -300 Output: Urine 300 Other: Voiding Method Toilet Toilet # Voids 2 # Bowel Movements 0 - Labs CBC & Chem 7: 05/27/24 03:07 05/27/24 03:07 Labs: Abnormal Lab Results - Last 24 Hours (Table) 05/27/24 05/27/24 05/27/24 Range/Units 03:07 11:37 14:10 RBC 2.75 L (4.40-5.60) X 10*6/uL Hgb 7.9 L (13.0-17.0) g/dL Hct 25.4 L (39.6-50.0) % MCHC 31.1 L (32.0-37.0) g/dL RDW 18.0 H (11.5-14.5) % POC Glucose (mg/dL) 306 H 277 H (70-110) mg/dL 05/27/24 05/27/24 05/28/24 Range/Units 16:40 20:59 06:49 RBC (4.40-5.60) X 10*6/uL Hgb (13.0-17.0) g/dL Hct (39.6-50.0) % MCHC (32.0-37.0) g/dL RDW (11.5-14.5) % POC Glucose (mg/dL) 287 H 176 H 63 L (70-110) mg/dL 05/28/24 Range/Units 07:08 RBC (4.40-5.60) X 10*6/uL Hgb (13.0-17.0) g/dL Hct (39.6-50.0) % MCHC (32.0-37.0) g/dL RDW (11.5-14.5) % POC Glucose (mg/dL) 63 L (70-110) mg/dL Microbiology - Last 24 Hours (Table) 05/26/24 18:21 Blood Culture - Preliminary Blood 05/26/24 12:07 Blood Culture - Preliminary Blood 05/25/24 12:55 Blood Culture Gram Stain - Preliminary Blood Blood Culture - Preliminary Strep A Molecular ID 05/26/24 11:15 Gram Stain - Preliminary Foot - Right Wound Culture - Preliminary
[2024-05-28 16:39] LABS: Glucose,Whole Blood 81 mg/dL (70-110)
[2024-05-28 20:23] LABS: Glucose,Whole Blood 65 mg/dL (70-110)
[2024-05-28 20:50] LABS: Glucose,Whole Blood 64 mg/dL (70-110)
[2024-05-28 21:43] LABS: Glucose,Whole Blood 81 mg/dL (70-110)
[2024-05-29 01:43] LABS: Glucose,Whole Blood 107 mg/dL (70-110)
[2024-05-29 05:21] LABS: Glucose,Whole Blood 53 mg/dL (70-110)
[2024-05-29 05:39] LABS: Glucose,Whole Blood 61 mg/dL (70-110)
[2024-05-29] MEDS: DEXTROSE 50% SYRINGE 50 ML IVP PRN (05:43)
[2024-05-29 06:42] LABS: Glucose,Whole Blood 82 mg/dL (70-110)
--- NOTE | 2024-05-29 09:04 | P.PN ---
Subjective Patient is seen in follow-up for end-stage renal disease. He is maintained on hemodialysis on Friday schedule. No active complaints. Hemodynamically stable. Tolerated 3 L ultrafiltration yesterday. Vital signs are stable. General: No acute distress. HEENT: Head exam is unremarkable. LUNGS: No audible rhonchi or wheezes. HEART: Rate and Rhythm are regular. ABDOMEN: Nontender. EXTREMITITES: 2+ edema. Erythema noted. Objective - Vital Signs Vital signs: Vital Signs Temp 97.3 F L 05/29/24 06:57 Pulse 70 05/29/24 06:57 Resp 17 05/29/24 06:57 BP 112/65 05/29/24 06:57 Pulse Ox 96 05/29/24 06:57 FiO2 Intake & Output 05/28/24 05/29/24 05/29/24 18:59 06:59 18:59 Intake Total 3400 Output Total 3400 Balance 0 Intake: Hemodialysis 3400 Output: Hemodialysis 400 Hemodialysis Net Amount 3000 Other: Voiding Method Toilet Toilet # Voids 1 - Labs CBC & Chem 7: 05/27/24 03:07 05/27/24 03:07 Labs: Abnormal Lab Results - Last 24 Hours (Table) 05/28/24 05/28/24 05/28/24 Range/Units 11:36 20:21 20:48 POC Glucose (mg/dL) 115 H 65 L 64 L (70-110) mg/dL 05/29/24 05/29/24 Range/Units 05:20 05:39 POC Glucose (mg/dL) 53 L 61 L (70-110) mg/dL Microbiology - Last 24 Hours (Table) 05/26/24 18:21 Blood Culture - Preliminary Blood 05/26/24 12:07 Blood Culture - Preliminary Blood 05/26/24 11:15 Anaerobic Culture - Preliminary Heel - Right 05/25/24 12:55 Blood Culture Gram Stain - Final Blood Blood Culture - Final Strep A Molecular ID 05/26/24 11:15 Gram Stain - Preliminary Foot - Right Wound Culture - Preliminary Strep A Gram Neg Bacilli Assessment and Plan Plan: Assessment: 1. End-stage renal disease maintained on hemodialysis on Friday schedule via permacath. He has a maturing left upper extremity AV fistula. 2. Right foot wound. On antibiotics. 3. Strep bacteremia. Likely source heel ulcer is wound culture also positive for strep. 4. Hypertension with chronic kidney disease. Stable. 5. Diabetes mellitus. 6. Chronic kidney disease mineral bone disease. Phosphorus level 6.0 dated May 26, 2024. On PhosLo. 7. Anemia of chronic kidney disease. On Aranesp. 8. Hyponatremia secondary to chronic kidney disease. Hypervolemic. 9. Mild hyperkalemia secondary to chronic kidney disease and hyperglycemia. Also on Diovan. Improved. Plan: Extra hemodialysis treatment today mostly for ultrafiltration. Advised patient to maintain low-salt diet and fluid restriction of less than 50 ounces per day upon discharge.
[2024-05-29 10:23] LABS: HCT 25.5 % (39.6-50.0); HGB 7.8 g/dL (13.0-17.0); MCH 28.8 pg (27.0-32.0); MCHC 30.6 g/dL (32.0-37.0); MCV 94.1 FL (80.0-97.0); Mean Platelet Volume 12.7 FL (9.5-12.2); NRBC Per 100 WBC 0 X 10*3/uL (0.00-0.01); Platelet Count 169 X 10*3/uL (140-440); RBC 2.71 X 10*6/uL (4.40-5.60); RDW 18.2 % (11.5-14.5); WBC 5.59 X 10*3/uL (4.50-10.00)
[2024-05-29 11:43] LABS: Glucose,Whole Blood 145 mg/dL (70-110)
[2024-05-29 13:07] LABS: Magnesium 1.9 mg/dL (1.5-2.4)
[2024-05-29 13:10] LABS: ALT 19 U/L (10-49); AST 20 U/L (14-35); Albumin 2.8 g/dL (3.8-4.9); Albumin/Globulin Ratio 0.85 Ratio (1.60-3.17); Alkaline Phosphatase 190 U/L (41-126); BUN/Creat Ratio 5.83 Ratio (12.00-20.00); Blood Urea Nitrogen 23.9 mg/dL (9.0-27.0); Calcium 7.4 mg/dL (8.7-10.3); Chloride 96 mmol/L (96-109); Globulin 3.3 g/dL (1.6-3.3); Glucose 77 mg/dL (70-110); Potassium 4.6 mmol/L (3.5-5.5); Sodium 134 mmol/L (135-145); Total Bilirubin 0.3 mg/dL (0.3-1.2); Total Protein 6.1 g/dL (6.2-8.2)
--- NOTE | 2024-05-29 13:59 | P.PN ---
Subjective Progress Note Date: 05/29/24 Hospital course: Patient is a pleasant 58-year-old male with a past medical history of ESRD on hemodialysis, systolic heart failure with EF of 40%, moderate pulmonary hypertension, hypertension, hyperlipidemia, and insulin-dependent diabetes mellitus on insulin pump. He presented to the hospital on 05/25/2024 with a chief complaint of weakness. Upon arrival to our facility patient underwent evaluation in the emergency department. Vital signs upon arrival show blood pressure 151/80, heart rate 91, respiratory rate 22, temp 102.3 F, and SpO2 of 94% on room air. EKG completed showing normal sinus rhythm at 88 bpm with no significant T wave or ST abnormality showing no signs of acute ischemia upon personal review and interpretation. Chest x-ray completed showing cardiomegaly with subsegmental left retrocardiac atelectasis. X-ray right foot showing soft tissue swelling of fifth metatarsal phalangeal joint space otherwise negative for suspicious changes to suggest osteomyelitis. Labs were completed and reviewed. CBC showing leukocytosis with WBC count of 14.4 and normocytic anemia with hemoglobin of 9.5. Coagulation profile showing elevated PT of 13.0 and INR of 1.2. BMP showing hyponatremia with sodium of 128, hyperkalemia with potassium of 5.8, and hypochloremia with chloride of 92 and elevated renal function with BUN of 45, creatinine of 5.31, and GFR of 11. Blood glucose was 372. Lactic acid was 1.7. Urinalysis negative for infection. Acetone was negative. Influenza A, influenza B, RSV, and COVID PCR were negative. Patient was started on broad-spectrum antibiotics with vancomycin and Rocephin. He was admitted under our services with consultation to nephrology and infectious disease. Blood cultures positive preliminarily for strep pyogenes. Patient reports recent AV fistula placement 3 weeks ago and states permacath placed 2 weeks ago. Physical exam: Patient seen and fully evaluated at bedside this morning. He reports pain in right heel and foot currently controlled. Patient states he just feels extremely tired this morning and has had a difficult time sleeping during the night's. Vital signs reviewed and stable. General: Nontoxic, no distress and appears stated age. Derm: Skin warm and dry, normal coloration for ethnicity. Ulcer right heel Head: Atraumatic, normocephalic and symmetric. Eyes: EOM's intact, no lid lag, and anicteric sclera Mouth: no lip lesions, mucus membranes moist Cardiovascular: regular rate and rhythm with normal S1S2, systolic murmur, positive posterior tibial pulses bilaterally, AV fistula left upper extremity with bruit and thrill in place. Permacath Left anterior chest Lungs: Respirations even, regular, and unlabored on room air. Lungs CTA bilaterally, no rhonchi, no rales, no wheezing, and no accessory muscle usage. Abdominal: soft, nontender to palpation, no guarding, no appreciable organomegaly Ext: ROM intact. No gross muscle atrophy, bilateral lower extremity edema, no contractures Neuro: Speech clear, face symmetrical and CN II-XII grossly intact with no noted focal neuro deficits Psych: Alert and oriented to person, place, time, and situation. Appropriate and pleasant affect. Assessment and Plan of Care: Bacteremia Infected diabetic ulcer of right heel Sepsis upon arrival, secondary to above -Blood culture positive for strep pyogenes (group A strep). -Arobic Wound cultures of right foot/heel positive for Group A strep Proteus vulgaris group resistant to ampicillin and tetracycline and cefazolin but susceptible to Unasyn. -Anaerobic culture of right foot/heel showing preliminarily positive for Bacteroides thetaiotaomicron -Continue IV antibiotics with Unasyn 3 g every 12 hours -Infectious disease consulted, discussed in detail with Dr. Rodriguez recommending ALYSIA due to inability to obtain bone scan or MRI with contrast will need to be discharged home on IV antibiotics with dialysis. -Echocardiogram showing a reduced EF of 30 to 35% with severe pulmonary hypertension and moderate to severe mitral regurgitation. (Previous echocardiogram completed/02/10 showing an EF of 40% with mild to moderate mitral regurgitation and mild to moderate pulmonic regurgitation) -Consult placed to cardiology for ALYSIA secondary to worsening ejection fraction and gram-positive bacteremia to rule out endocarditis. -Repeat blood cultures until negative, currently repeat blood cultures showing no growth to date. -Symptomatic care and pain management with Tylenol 650 mg every 6 hours as needed for mild pain, [place] 5/325 mg tablets every 4 hours as needed for moderate pain, and morphine 4 mg IVP every 4 hours as needed for severe pain. ESRD on hemodialysis Anemia of chronic disease, secondary to ESRD Hyperkalemia, secondary to above. Resolved Hyponatremia secondary to hypervolemia, improving after hemodialysis -Nephrology following and managing hemodialysis. Discussed case in detail with Dr. Elliott patient to be maintained on current dialysis schedule Friday/Friday/Fridays with continuation of Aranesp.. -Continue torsemide 100 mg daily. Insulin Dependent Diabetes mellitus with hyperglycemia Patient to continue use of personal insulin pump. Continue Accu-Cheks ACHS Chronic systolic heart failure with a EF of 40%. Patient to continue cardiac medication regimen with aspirin 81 mg daily, amlodipine 10 mg daily, atorvastatin 20 mg daily, carvedilol 25 mg twice daily, hydralazine 100 mg 3 times daily, valsartan 160 mg daily, isosorbide mononitrate 60 mg daily, clonidine patch weekly with dose of 0.1 mg every 24 hours, and torsemide 100 mg daily. Patient also to be given midodrine 5 mg daily as needed for hypotension. Hypertension. Continue medication regimen with amlodipine 10 mg daily,carvedilol 25 mg twice daily, hydralazine 100 mg 3 times daily, clonidine patch weekly with dose of 0.1 mg every 24 hours, and torsemide 100 mg daily. Hyperlipidemia. Continue medication regimen with atorvastatin 20 mg daily. Data and imaging reviewed: -Blood culture positive for strep pyogenes (group A strep). -Arobic Wound cultures of right foot/heel positive for Group A strep Proteus vulgaris group resistant to ampicillin and tetracycline and cefazolin but susceptible to Unasyn. -Anaerobic culture of right foot/heel showing preliminarily positive for Bacteroides thetaiotaomicron -Labs reviewed. CBC showing normocytic anemia with hemoglobin of 7.8. BMP showing mild hyponatremia with sodium of 134 and Renal function showing BUN of 23.9, creatinine 4.1, and GFR of 16. Blood glucose 77.. Magnesium 1.9. Liver profile showing elevated alkaline phosphatase of 190. Albumin low at 2.8. -Vital signs reviewed. Blood pressure 112/65, heart rate 70, respiratory rate 17, temp 97.3 F, and SpO2 of 96% on room air CODE STATUS: Full code DVT prophylaxis: Heparin Anticipated discharge date: Pending clinical course Anticipated discharge place: Home Patient was seen independently by Nurse Pracitioner. This document was prepared using [employer] dictation software. Please allow for errors in hair mixer, while rare they do occur. Anton Salgado NP rendered care for this patient independently, reviewed the findings and plan as documented in the note above and agree with plan. I did not physically speak with or examine the patient on this date. . Objective - Vital Signs Vital signs: Vital Signs Temp 97.3 F L 05/29/24 06:57 Pulse 70 05/29/24 06:57 Resp 17 05/29/24 06:57 BP 112/65 05/29/24 06:57 Pulse Ox 96 05/29/24 06:57 FiO2 Intake & Output 05/28/24 05/29/24 05/29/24 18:59 06:59 18:59 Intake Total 3400 Output Total 3400 Balance 0 Intake: Hemodialysis 3400 Output: Hemodialysis 400 Hemodialysis Net Amount 3000 Other: Voiding Method Toilet Toilet # Voids 1 - Labs CBC & Chem 7: 05/29/24 03:48 05/29/24 03:51 Labs: Abnormal Lab Results - Last 24 Hours (Table) 05/28/24 05/28/24 05/28/24 Range/Units 11:36 20:21 20:48 POC Glucose (mg/dL) 115 H 65 L 64 L (70-110) mg/dL 05/29/24 05/29/24 Range/Units 05:20 05:39 POC Glucose (mg/dL) 53 L 61 L (70-110) mg/dL Microbiology - Last 24 Hours (Table) 05/26/24 18:21 Blood Culture - Preliminary Blood 05/26/24 12:07 Blood Culture - Preliminary Blood 05/26/24 11:15 Anaerobic Culture - Preliminary Heel - Right 05/25/24 12:55 Blood Culture Gram Stain - Final Blood Blood Culture - Final Strep A Molecular ID 05/26/24 11:15 Gram Stain - Preliminary Foot - Right Wound Culture - Preliminary Strep A Gram Neg Bacilli
--- NOTE | 2024-05-29 14:13 | P.PN ---
Subjective Progress Note Date: 05/29/24 Principal diagnosis: Reason for follow-up is right heel infected wound with bacteremia Patient is a 58-year-old male with a past medical history significant for diabetes mellitus insulin-dependent end-stage renal disease on hemodialysis also with a nonhealing wound to the right heel area presenting to the hospital with not feeling well patient was noticed to be septic with group a strep bacteremia concerning for the right heel infected wound. On today's evaluation that is 05/29/2024, patient has been afebrile, patient is breathing comfortably and is currently on room air, patient denies having any significant cough no chest pain, patient denies nausea vomiting or diarrhea and no abdominal pain denies any worsening pain to the right heel wound. Patient white count is 5.59, creatinine is 5.83 right heel culture also growing Proteus and bacteroids blood culture repeat currently pending Objective - Vital Signs Vital signs: Vital Signs Temp 97.3 F L 05/29/24 06:57 Pulse 70 05/29/24 08:30 Resp 17 05/29/24 08:30 BP 112/65 05/29/24 06:57 Pulse Ox 96 05/29/24 06:57 FiO2 Intake & Output 05/28/24 05/29/24 05/29/24 18:59 06:59 18:59 Intake Total 3400 Output Total 3400 Balance 0 Intake: Hemodialysis 3400 Output: Hemodialysis 400 Hemodialysis Net Amount 3000 Other: Voiding Method Toilet Toilet Toilet # Voids 1 - Exam GENERAL DESCRIPTION: Middle-age male lying in bed in no distress RESPIRATORY SYSTEM: Unlabored breathing , decreased breath sounds at bases HEART: S1 S2 regular rate and rhythm , ABDOMEN: Soft , no tenderness EXTREMITIES: Right heel wound is currently dressed - Labs CBC & Chem 7: 05/29/24 03:48 05/29/24 03:51 Labs: Abnormal Lab Results - Last 24 Hours (Table) 05/28/24 05/28/24 05/29/24 Range/Units 20:21 20:48 03:48 RBC 2.71 L (4.40-5.60) X 10*6/uL Hgb 7.8 L (13.0-17.0) g/dL Hct 25.5 L (39.6-50.0) % MCHC 30.6 L (32.0-37.0) g/dL RDW 18.2 H (11.5-14.5) % MPV 12.7 H (9.5-12.2) FL Sodium (135-145) mmol/L Creatinine (0.6-1.5) mg/dL Est GFR (CKD-EPI) (>=60) BUN/Creatinine Ratio (12.00-20.00) Ratio POC Glucose (mg/dL) 65 L 64 L (70-110) mg/dL Calcium (8.7-10.3) mg/dL Alkaline Phosphatase (41-126) U/L Total Protein (6.2-8.2) g/dL Albumin (3.8-4.9) g/dL Albumin/Globulin Ratio (1.60-3.17) Ratio 05/29/24 05/29/24 05/29/24 Range/Units 03:51 05:20 05:39 RBC (4.40-5.60) X 10*6/uL Hgb (13.0-17.0) g/dL Hct (39.6-50.0) % MCHC (32.0-37.0) g/dL RDW (11.5-14.5) % MPV (9.5-12.2) FL Sodium 134 L (135-145) mmol/L Creatinine 4.1 H (0.6-1.5) mg/dL Est GFR (CKD-EPI) 16 L (>=60) BUN/Creatinine Ratio 5.83 L (12.00-20.00) Ratio POC Glucose (mg/dL) 53 L 61 L (70-110) mg/dL Calcium 7.4 L (8.7-10.3) mg/dL Alkaline Phosphatase 190 H (41-126) U/L Total Protein 6.1 L (6.2-8.2) g/dL Albumin 2.8 L (3.8-4.9) g/dL Albumin/Globulin Ratio 0.85 L (1.60-3.17) Ratio 05/29/24 Range/Units 11:41 RBC (4.40-5.60) X 10*6/uL Hgb (13.0-17.0) g/dL Hct (39.6-50.0) % MCHC (32.0-37.0) g/dL RDW (11.5-14.5) % MPV (9.5-12.2) FL Sodium (135-145) mmol/L Creatinine (0.6-1.5) mg/dL Est GFR (CKD-EPI) (>=60) BUN/Creatinine Ratio (12.00-20.00) Ratio POC Glucose (mg/dL) 145 H (70-110) mg/dL Calcium (8.7-10.3) mg/dL Alkaline Phosphatase (41-126) U/L Total Protein (6.2-8.2) g/dL Albumin (3.8-4.9) g/dL Albumin/Globulin Ratio (1.60-3.17) Ratio Microbiology - Last 24 Hours (Table) 05/26/24 11:15 Anaerobic Culture - Preliminary Heel - Right Bacteroides thetaiotaomicron 05/26/24 11:15 Gram Stain - Final Foot - Right Wound Culture - Final Strep A Proteus vulgaris group 05/26/24 18:21 Blood Culture - Preliminary Blood 05/26/24 12:07 Blood Culture - Preliminary Blood 05/25/24 12:55 Blood Culture Gram Stain - Final Blood Blood Culture - Final Strep A Molecular ID Assessment and Plan (1) Streptococcal bacteremia Current Visit: Yes Status: Acute Code(s): R78.81 - BACTEREMIA; B95.5 - UNSP STREPTOCOCCUS THE CAUSE OF DISEASES CLASSD ELSR SNOMED Code(s): 813266657864 (2) Diabetic ulcer of right foot Current Visit: Yes Status: Acute Code(s): E11.621 - TYPE 2 DIABETES MELLITUS WITH FOOT ULCER; L97.519 - NON-PRS CHRONIC ULCER OTH PRT RIGHT FOOT W UNSP ESTEFANY RITY SNOMED Code(s): 937126149 (3) Sepsis Current Visit: Yes Status: Acute Code(s): A41.9 - SEPSIS, UNSPECIFIED ORGANISM SNOMED Code(s): 08717529 Plan: 1patient presented to hospital with sepsis in this patient who did have fever elevated white count and now with streptococcal bacteremia source is likely right heel and diabetic foot ulcer with secondary cellulitis patient did have other possible sources however clinic suspicious low for permacatheter infection unless patient shows evidence of persistent bacteremia and this has been discussed in detail with the admitting as well as nephrology team 2-blood cultures has been repeated and so far pending local culture currently growing strep Proteus and bacteroids 3-patient to continue local wound care to the right heel with Aquacel dressing change q. 48-hour 4-patient did have abnormality seen on the mitral valve ALYSIA has been requested for better definition to rule out endocarditis 5continue with the Unasyn while waiting for the workup to be completed Dictation was produced using [employer] dictation software. please excuse any grammatical, word or spelling errors. Time with Patient: Less than 30
[2024-05-29 16:50] LABS: Glucose,Whole Blood 364 mg/dL (70-110)
[2024-05-29 21:01] LABS: Glucose,Whole Blood 148 mg/dL (70-110)
[2024-05-29] MEDS: MELATONIN 3 MG TABLET PO SCH (21:07)
[2024-05-29] MEDS: ALPRAZolam 0.5 MG TAB PO SCH (21:08)
[2024-05-29 22:57] LABS: Glucose,Whole Blood 123 mg/dL (70-110)
[2024-05-30 06:43] LABS: Glucose,Whole Blood 182 mg/dL (70-110)
[2024-05-30] MEDS: INSPUCOR MISCELLANE PRN (08:38)
[2024-05-30 09:14] LABS: ALT 18 U/L (4-49); AST 28 U/L (17-59); African American GFR (CKD) 16 (>60 ml/min/1.73 sqM); Albumin 2.8 g/dL (3.5-5.0); Albumin/Globulin Ratio 0.8; Alkaline Phosphatase 213 U/L (38-126); Anion Gap 8 mmol/L; Blood Urea Nitrogen 28 mg/dL (9-20); Calcium 7.3 mg/dL (8.4-10.2); Carbon Dioxide 28 mmol/L (22-30); Chloride 95 mmol/L (98-107); Globulin 3.7 g/dL; Glucose 206 mg/dL (74-99); Magnesium 1.9 mg/dL (1.6-2.3); Non-African American GFR(CKD) 14 (>60 ml/min/1.73 sqM); Potassium 4.8 mmol/L (3.5-5.1); Sodium 131 mmol/L (137-145); Total Bilirubin 0.6 mg/dL (0.2-1.3); Total Protein 6.5 g/dL (6.3-8.2)
[2024-05-30 09:22] LABS: Anisocytosis Slight; HCT 27.3 % (39.0-53.0); HGB 8.4 gm/dL (13.0-17.5); Hypochromasia Marked; MCH 29.5 pg (25.0-35.0); MCHC 30.9 g/dL (31.0-37.0); MCV 95.6 fL (80.0-100.0); Mean Platelet Volume 9.3; Platelet Count 151 k/uL (150-450); RBC 2.86 m/uL (4.30-5.90); RDW 17.6 % (11.5-15.5); WBC 5.6 k/uL (3.8-10.6)
--- NOTE | 2024-05-30 09:34 | P.PN ---
Subjective Patient is seen in follow-up for end-stage renal disease. He is maintained on hemodialysis on Friday schedule. Underwent extra treatment of hemodialysis yesterday with 2 L removed. No active complaints. Hemodynamically stable. Vital signs are stable. General: No acute distress. HEENT: Head exam is unremarkable. LUNGS: No audible rhonchi or wheezes. HEART: Rate and Rhythm are regular. ABDOMEN: Nontender. EXTREMITITES: 2+ edema. Erythema noted. Objective - Vital Signs Vital signs: Vital Signs Temp 98.2 F 05/30/24 07:00 Pulse 67 05/30/24 07:00 Resp 20 05/30/24 07:00 BP 153/84 05/30/24 07:00 Pulse Ox 94 L 05/30/24 07:00 FiO2 Intake & Output 05/29/24 05/30/24 05/30/24 18:59 06:59 18:59 Intake Total 600 Output Total 4500 Balance -3900 Intake: Intake, IV Titration 100 Amount Ampicillin-Sulbactam 3 gm 100 In Sodium Chloride 0.9% 100 ml @ 200 mls/hr IVPB Q12HR [facility] Rx#:[id number] Hemodialysis 500 Output: Hemodialysis 2500 Hemodialysis Net Amount 2000 Other: Voiding Method Toilet Toilet # Voids 2 # Bowel Movements 1 - Labs CBC & Chem 7: 05/30/24 08:27 05/30/24 08:27 Labs: Abnormal Lab Results - Last 24 Hours (Table) 05/29/24 05/29/24 05/29/24 Range/Units 03:48 03:51 11:41 RBC 2.71 L (4.40-5.60) X 10*6/uL Hgb 7.8 L (13.0-17.0) g/dL Hct 25.5 L (39.6-50.0) % MCHC 30.6 L (32.0-37.0) g/dL RDW 18.2 H (11.5-14.5) % MPV 12.7 H (9.5-12.2) FL Sodium 134 L (135-145) mmol/L Chloride (98-107) mmol/L BUN (9-20) mg/dL Creatinine 4.1 H (0.6-1.5) mg/dL Est GFR (CKD-EPI) 16 L (>=60) BUN/Creatinine Ratio 5.83 L (12.00-20.00) Ratio Glucose (74-99) mg/dL POC Glucose (mg/dL) 145 H (70-110) mg/dL Calcium 7.4 L (8.7-10.3) mg/dL Alkaline Phosphatase 190 H (41-126) U/L Total Protein 6.1 L (6.2-8.2) g/dL Albumin 2.8 L (3.8-4.9) g/dL Albumin/Globulin Ratio 0.85 L (1.60-3.17) Ratio 05/29/24 05/29/24 05/29/24 Range/Units 16:48 20:59 22:55 RBC (4.40-5.60) X 10*6/uL Hgb (13.0-17.0) g/dL Hct (39.6-50.0) % MCHC (32.0-37.0) g/dL RDW (11.5-14.5) % MPV (9.5-12.2) FL Sodium (135-145) mmol/L Chloride (98-107) mmol/L BUN (9-20) mg/dL Creatinine (0.6-1.5) mg/dL Est GFR (CKD-EPI) (>=60) BUN/Creatinine Ratio (12.00-20.00) Ratio Glucose (74-99) mg/dL POC Glucose (mg/dL) 364 H 148 H 123 H (70-110) mg/dL Calcium (8.7-10.3) mg/dL Alkaline Phosphatase (41-126) U/L Total Protein (6.2-8.2) g/dL Albumin (3.8-4.9) g/dL Albumin/Globulin Ratio (1.60-3.17) Ratio 05/30/24 05/30/24 05/30/24 Range/Units 06:42 08:27 08:27 RBC 2.86 L (4.40-5.60) X 10*6/uL Hgb 8.4 L (13.0-17.0) g/dL Hct 27.3 L (39.6-50.0) % MCHC 30.9 L (32.0-37.0) g/dL RDW 17.6 H (11.5-14.5) % MPV (9.5-12.2) FL Sodium 131 L (135-145) mmol/L Chloride 95 L (98-107) mmol/L BUN 28 H (9-20) mg/dL Creatinine 4.40 H (0.6-1.5) mg/dL Est GFR (CKD-EPI) (>=60) BUN/Creatinine Ratio (12.00-20.00) Ratio Glucose 206 H (74-99) mg/dL POC Glucose (mg/dL) 182 H (70-110) mg/dL Calcium 7.3 L (8.7-10.3) mg/dL Alkaline Phosphatase 213 H (41-126) U/L Total Protein (6.2-8.2) g/dL Albumin 2.8 L (3.8-4.9) g/dL Albumin/Globulin Ratio (1.60-3.17) Ratio Microbiology - Last 24 Hours (Table) 05/26/24 18:21 Blood Culture - Preliminary Blood 05/26/24 12:07 Blood Culture - Preliminary Blood 05/26/24 11:15 Anaerobic Culture - Preliminary Heel - Right Bacteroides thetaiotaomicron 05/26/24 11:15 Gram Stain - Final Foot - Right Wound Culture - Final Strep A Proteus vulgaris group Assessment and Plan Plan: Assessment: 1. End-stage renal disease maintained on hemodialysis on Friday schedule via permacath. He has a maturing left upper extremity AV fistula. 2. Right foot wound. On antibiotics. 3. Strep bacteremia. Likely source heel ulcer is wound culture also positive for strep. 4. Hypertension with chronic kidney disease. Stable. 5. Diabetes mellitus. 6. Chronic kidney disease mineral bone disease. Phosphorus level 6.0 dated May 26, 2024. On PhosLo. 7. Anemia of chronic kidney disease. On Aranesp. 8. Hyponatremia secondary to chronic kidney disease. Hypervolemic. 9. Mild hyperkalemia secondary to chronic kidney disease and hyperglycemia. Also on Diovan. Improved. Plan: Hemodialysis tomorrow. Advised patient to maintain low-salt diet and fluid restriction of less than 50 ounces per day upon discharge.
[2024-05-30 11:59] LABS: Glucose,Whole Blood 176 mg/dL (70-110)
--- NOTE | 2024-05-30 13:35 | P.PN ---
Subjective Progress Note Date: 05/30/24 Hospital course: Patient is a pleasant 58-year-old male with a past medical history of ESRD on hemodialysis, systolic heart failure with EF of 40%, moderate pulmonary hypertension, hypertension, hyperlipidemia, and insulin-dependent diabetes mellitus on insulin pump. He presented to the hospital on 05/25/2024 with a chief complaint of weakness. Upon arrival to our facility patient underwent evaluation in the emergency department. Vital signs upon arrival show blood pressure 151/80, heart rate 91, respiratory rate 22, temp 102.3 F, and SpO2 of 94% on room air. EKG completed showing normal sinus rhythm at 88 bpm with no significant T wave or ST abnormality showing no signs of acute ischemia upon personal review and interpretation. Chest x-ray completed showing cardiomegaly with subsegmental left retrocardiac atelectasis. X-ray right foot showing soft tissue swelling of fifth metatarsal phalangeal joint space otherwise negative for suspicious changes to suggest osteomyelitis. Labs were completed and reviewed. CBC showing leukocytosis with WBC count of 14.4 and normocytic anemia with hemoglobin of 9.5. Coagulation profile showing elevated PT of 13.0 and INR of 1.2. BMP showing hyponatremia with sodium of 128, hyperkalemia with potassium of 5.8, and hypochloremia with chloride of 92 and elevated renal function with BUN of 45, creatinine of 5.31, and GFR of 11. Blood glucose was 372. Lactic acid was 1.7. Urinalysis negative for infection. Acetone was negative. Influenza A, influenza B, RSV, and COVID PCR were negative. Patient was started on broad-spectrum antibiotics with vancomycin and Rocephin. He was admitted under our services with consultation to nephrology and infectious disease. Blood cultures positive preliminarily for strep pyogenes. Patient reports recent AV fistula placement 3 weeks ago and states permacath placed 2 weeks ago Physical exam: Patient seen and fully evaluated at bedside this morning. He reports pain in right heel and foot remains at this time controlled at this time. Patient states he still feels tired but states he slept better than he has in a long time last night after receiving patient currently denies having any other questions, needs, complaints, or concerns at this time. Xanax and melatonin. Vital signs reviewed and stable. General: Nontoxic, no distress and appears stated age. Derm: Skin warm and dry, normal coloration for ethnicity. Ulcer right heel Head: Atraumatic, normocephalic and symmetric. Eyes: EOM's intact, no lid lag, and anicteric sclera Mouth: no lip lesions, mucus membranes moist Cardiovascular: regular rate and rhythm with normal S1S2, systolic murmur, positive posterior tibial pulses bilaterally, AV fistula left upper extremity with bruit and thrill in place. Permacath Left anterior chest Lungs: Respirations even, regular, and unlabored on room air. Lungs CTA bilaterally, no rhonchi, no rales, no wheezing, and no accessory muscle usage. Abdominal: soft, nontender to palpation, no guarding, no appreciable organomegaly Ext: ROM intact. No gross muscle atrophy, bilateral lower extremity edema, no contractures Neuro: Speech clear, face symmetrical and CN II-XII grossly intact with no noted focal neuro deficits Psych: Alert and oriented to person, place, time, and situation. Appropriate and pleasant affect. Assessment and Plan of Care: Group A Strep Bacteremia Infected diabetic ulcer of right heel Sepsis upon arrival, secondary to above -Blood culture positive for strep pyogenes (group A strep). -Arobic Wound cultures of right foot/heel positive for Group A strep Proteus vulgaris group resistant to ampicillin, tetracycline and cefazolin but susceptible to Unasyn. -Anaerobic culture of right foot/heel showing preliminarily positive for Bacteroides thetaiotaomicron -Continue IV antibiotics with Unasyn 3 g every 12 hours. -Infectious disease consulted, discussed in detail with Dr. Rodriguez stating due to inability to obtain bone scan or MRI with contrast pt will need to be discharged home on IV antibiotics. -Echocardiogram showing a reduced EF of 30 to 35% with severe pulmonary hypertension and moderate to severe mitral regurgitation with thickened mitral valve leaflets. (Previous echocardiogram completed/02/10 showing an EF of 40% with mild to moderate mitral regurgitation and mild to moderate pulmonic regurgitation). -Consult placed to cardiology for ALYSIA to rule out endocarditis secondary to worsening ejection fraction and gram-positive bacteremia with reports of thickened mitral valve leaflets on limited echo. -Repeat blood cultures negative, showed no growth to date. -Symptomatic care and pain management with Tylenol 650 mg every 6 hours as needed for mild pain, [place] 5/325 mg tablets every 4 hours as needed for moderate pain, and morphine 4 mg IVP every 4 hours as needed for severe pain. ESRD on hemodialysis Anemia of chronic disease, secondary to ESRD Hyperkalemia, secondary to above. Resolved Hyponatremia secondary to hypervolemia, improving after hemodialysis -Nephrology following and managing hemodialysis. Discussed case in detail with Dr. Elliott patient to be maintained on current dialysis schedule Friday/Friday/Fridays with continuation of Aranesp.. -Continue torsemide 100 mg daily. Insulin Dependent Diabetes mellitus with hyperglycemia Patient to continue use of personal insulin pump. Continue Accu-Cheks ACHS Chronic systolic heart failure with a EF of 40%. Patient to continue cardiac medication regimen with aspirin 81 mg daily, amlodipine 10 mg daily, atorvastatin 20 mg daily, carvedilol 25 mg twice daily, hydralazine 100 mg 3 times daily, valsartan 160 mg daily, isosorbide mononitrate 60 mg daily, clonidine patch weekly with dose of 0.1 mg every 24 hours, and torsemide 100 mg daily. Patient also to be given midodrine 5 mg daily as needed for hypotension. Hypertension. Continue medication regimen with amlodipine 10 mg daily,carvedilol 25 mg twice daily, hydralazine 100 mg 3 times daily, clonidine patch weekly with dose of 0.1 mg every 24 hours, and torsemide 100 mg daily. Hyperlipidemia. Continue medication regimen with atorvastatin 20 mg daily. Data and imaging reviewed: -Blood culture obtained 05/25/2024 positive for strep pyogenes (group A strep). -Arobic Wound cultures of right foot/heel positive for Group A strep Proteus vulgaris group resistant to ampicillin and tetracycline and cefazolin but susceptible to Unasyn. -Anaerobic culture of right foot/heel showing preliminarily positive for Bacteroides thetaiotaomicron -Repeat blood cultures showing no growth -Labs reviewed. CBC showing normocytic anemia with hemoglobin of 8.4. BMP showing hypochloremic hyponatremia with sodium of 131, chloride of 95, and renal function consistent with ESRD with BUN of 28, creatinine of 4.40, GFR 14. Blood glucose 206. Magnesium 1.9. Liver profile showing elevated alkaline phosphatase of 213 and hypoalbuminemia with albumin of 2.8. -Vital signs reviewed. Blood pressure 153/84, heart rate 67, respiratory rate 20, temp 98.2 F, and SpO2 of 94% on room air. CODE STATUS: Full code DVT prophylaxis: Heparin Anticipated discharge date: Pending clinical course Anticipated discharge place: Home Patient was seen independently by Nurse Pracitioner. This document was prepared using [employer] dictation software. Please allow for errors in data collection associate, while rare they do occur. Anton Salgado NP rendered care for this patient independently, reviewed the findings and plan as documented in the note above and agree with plan. I did not physically speak with or examine the patient on this date. Objective - Vital Signs Vital signs: Vital Signs Temp 98.0 F 05/30/24 01:25 Pulse 70 05/30/24 01:25 Resp 17 05/30/24 01:25 BP 141/78 05/30/24 01:25 Pulse Ox 96 05/30/24 01:25 FiO2 Intake & Output 05/29/24 05/30/24 05/30/24 18:59 06:59 18:59 Intake Total 600 Output Total 4500 Balance -3900 Intake: Intake, IV Titration 100 Amount Ampicillin-Sulbactam 3 gm 100 In Sodium Chloride 0.9% 100 ml @ 200 mls/hr IVPB Q12HR [facility] Rx#:[id number] Hemodialysis 500 Output: Hemodialysis 2500 Hemodialysis Net Amount 2000 Other: Voiding Method Toilet Toilet # Voids 2 # Bowel Movements 1 - Labs CBC & Chem 7: 05/30/24 08:27 05/30/24 08:27 Labs: Abnormal Lab Results - Last 24 Hours (Table) 05/29/24 05/29/24 05/29/24 Range/Units 03:48 03:51 11:41 RBC 2.71 L (4.40-5.60) X 10*6/uL Hgb 7.8 L (13.0-17.0) g/dL Hct 25.5 L (39.6-50.0) % MCHC 30.6 L (32.0-37.0) g/dL RDW 18.2 H (11.5-14.5) % MPV 12.7 H (9.5-12.2) FL Sodium 134 L (135-145) mmol/L Creatinine 4.1 H (0.6-1.5) mg/dL Est GFR (CKD-EPI) 16 L (>=60) BUN/Creatinine Ratio 5.83 L (12.00-20.00) Ratio POC Glucose (mg/dL) 145 H (70-110) mg/dL Calcium 7.4 L (8.7-10.3) mg/dL Alkaline Phosphatase 190 H (41-126) U/L Total Protein 6.1 L (6.2-8.2) g/dL Albumin 2.8 L (3.8-4.9) g/dL Albumin/Globulin Ratio 0.85 L (1.60-3.17) Ratio 05/29/24 05/29/24 05/29/24 Range/Units 16:48 20:59 22:55 RBC (4.40-5.60) X 10*6/uL Hgb (13.0-17.0) g/dL Hct (39.6-50.0) % MCHC (32.0-37.0) g/dL RDW (11.5-14.5) % MPV (9.5-12.2) FL Sodium (135-145) mmol/L Creatinine (0.6-1.5) mg/dL Est GFR (CKD-EPI) (>=60) BUN/Creatinine Ratio (12.00-20.00) Ratio POC Glucose (mg/dL) 364 H 148 H 123 H (70-110) mg/dL Calcium (8.7-10.3) mg/dL Alkaline Phosphatase (41-126) U/L Total Protein (6.2-8.2) g/dL Albumin (3.8-4.9) g/dL Albumin/Globulin Ratio (1.60-3.17) Ratio 05/30/24 Range/Units 06:42 RBC (4.40-5.60) X 10*6/uL Hgb (13.0-17.0) g/dL Hct (39.6-50.0) % MCHC (32.0-37.0) g/dL RDW (11.5-14.5) % MPV (9.5-12.2) FL Sodium (135-145) mmol/L Creatinine (0.6-1.5) mg/dL Est GFR (CKD-EPI) (>=60) BUN/Creatinine Ratio (12.00-20.00) Ratio POC Glucose (mg/dL) 182 H (70-110) mg/dL Calcium (8.7-10.3) mg/dL Alkaline Phosphatase (41-126) U/L Total Protein (6.2-8.2) g/dL Albumin (3.8-4.9) g/dL Albumin/Globulin Ratio (1.60-3.17) Ratio Microbiology - Last 24 Hours (Table) 05/26/24 18:21 Blood Culture - Preliminary Blood 05/26/24 12:07 Blood Culture - Preliminary Blood 05/26/24 11:15 Anaerobic Culture - Preliminary Heel - Right Bacteroides thetaiotaomicron 05/26/24 11:15 Gram Stain - Final Foot - Right Wound Culture - Final Strep A Proteus vulgaris group
[2024-05-30] MEDS ORDERED: MIDAZOLAM 2 MG/2 ML VIAL IV PRN (14:27)
[2024-05-30] MEDS ORDERED: BENZOCAINE SPRAY 1 CAN TOPICAL PRN (14:27)
[2024-05-30] MEDS ORDERED: fentaNYL (PF) 50 MCG/ML 5 ML AMP IVP PRN (14:27)
--- NOTE | 2024-05-30 14:43 | P.CRDCN ---
History of Present Illness Consult date: 05/30/24 History of present illness: HISTORY OF PRESENTING ILLNESS 88-year-old male with past medical history of ESRD on hemodialysis, nonischemic cardiomyopathy systolic heart failure with a EF of 40%, moderate to severe pulmonary hypertension, hypertension, dyslipidemia, type [address] Buckner. This time presented to the hospital because of generalized weakness. He also has a nonhealing right heel wound. REVIEW OF SYSTEMS 14 point review of system is negative except what is mentioned above in HPI. PHYSICAL EXAMINATION Elevated JVD, left chest Temo catheter in place Lungs: Clear to auscultation. Heart: Regular pulses, S1, loud S2, systolic and diastolic murmur audible. Abdomen: Soft nontender, positive bowel sounds. Extremities: Chronic skin changes bilateral lower extremity, 1-2+ pitting edema. Neuro: Alert, oritented, no focal deficits. Detailed neuro exam was not performed. ASSESSMENT Strep group A and Proteus vulgaris septicemia Generalized weakness due to above Right heel nonhealing wound. ESRD on hemodialysis Chronic systolic heart failure, EF 30 to 35%. Last echo from November 2023 documented 40% EF. Nonischemic cardiomyopathy based of heart cath in November 2023. Valvular disease with severe mitral regurgitation. Diabetes Hypertension Dyslipidemia Moderate to severe pulm hypertension Pertinent cardiac testing Echo shows LVEF 30 to 35%, severely dilated LV cavity, severe pulmonary hypertension, severe mitral regurgitation, small pericardial effusion Cardiac cath from November 2023 shows relatively normal coronary arteries with nonobstructive mild CAD. PLAN Plan for ALYSIA at [address] Buckner tomorrow To rule out endocarditis. Optimize GDMT for nonischemic cardiomyopathy. Discontinue valsartan. Start Entresto 49/51 mg twice daily instead. Uptitrate dose if blood pressure is high. Imdur 60 mg, hydralazine 100 mg 3 times daily, amlodipine 10 mg daily Coreg 25 mg twice daily. He is on torsemide 100 mg daily He is on aspirin 81, Lipitor 20 Hemodialysis dependent for intravascular volume management. Supportive care as per primary team. Antibiotics as per infectious disease team Outpatient discussion about ICD/ Outpatient evaluation for PAD for chronic nonhealing wound of the right leg Past Medical History Past Medical History: Diabetes Mellitus, Dialysis, Renal Disease Additional Past Medical History / Comment(s): IDDM type I on insulin pump, DKA, chronic kidney disease, bilateral lower extremity edema. HD on MWF History of Any Multi-Drug Resistant Organisms: None Reported Past Surgical History: No Surgical Hx Reported Additional Past Surgical History / Comment(s): R knee arthroscopy, circumcism, HD cath in chest Past Anesthesia/Blood Transfusion Reactions: No Reported Reaction Past Psychological History: No Psychological Hx Reported Smoking Status: Former smoker Past Alcohol Use History: None Reported Past Drug Use History: None Reported - Past Family History Mother History Unknown: Yes Family Medical History: COPD Father Family Medical History: No Reported History Additional Family Medical History / Comment(s): Mother is healthy. Medications and Allergies Home Medications Medication Instructions Recorded Confirmed Type Insulin Aspart (For Pump) [NovoLOG 0.01 unit SQ-PUMP CONTINUOUS 02/21/23 05/25/24 History (For Pump)] FLUoxetine HCL [PROzac] 10 mg PO DAILY 07/14/23 05/25/24 History Atorvastatin [Lipitor] 20 mg PO HS 11/14/23 05/25/24 History Folic Acid/Vit B Complex and C 0.8 mg PO DAILY 11/14/23 05/25/24 History [Lilian-Marsha Tablet] amLODIPine [Norvasc] 10 mg PO DAILY 11/14/23 05/25/24 History hydrALAZINE HCL [Apresoline] 100 mg PO TID 11/14/23 05/25/24 History Aspirin 81 mg PO DAILY 30 Days #30 tab 11/28/23 05/25/24 Rx Torsemide [Demadex] 100 mg PO DAILY 02/09/24 05/25/24 History carvediloL [Coreg] 25 mg PO BID 04/09/24 05/25/24 History Doxazosin [Cardura] 4 mg PO DAILY 05/06/24 05/25/24 History Isosorbide Mononitrate ER [Imdur] 60 mg PO DAILY 05/06/24 05/25/24 History Midodrine [ProAmatine] 5 mg PO DAILY PRN 05/06/24 05/25/24 History Valsartan 160 mg PO DAILY 05/06/24 05/25/24 History cloNIDine 0.1 MG/24HR PATCH 1 patch TRANSDERM WE 05/06/24 05/25/24 History [Catapres-TTS] Allergies Allergy/AdvReac Type Severity Reaction Status Date / Time Iodinated Contrast Media Allergy Anaphylaxis Verified 05/25/24 13:40 Physical Exam Vitals: Vital Signs Temp Pulse Resp BP BP Pulse Ox 05/30/24 07:00 98.2 F 67 20 153/84 94 L 05/30/24 01:25 98.0 F 70 17 141/78 96 05/29/24 20:00 70 17 05/29/24 19:15 97.5 F L 75 18 151/79 97 05/29/24 18:46 98.3 F 72 18 154/83 Intake and Output 05/29/24 05/30/24 05/30/24 22:59 06:59 14:59 Intake Total 600 Output Total 4500 Balance -3900 Intake: Intake, IV Titration 100 Amount Ampicillin-Sulbactam 3 gm 100 In Sodium Chloride 0.9% 100 ml @ 200 mls/hr IVPB Q12HR [facility] Rx#:[id number] Hemodialysis 500 Output: Hemodialysis 2500 Hemodialysis Net Amount 2000 Other: Voiding Method Toilet # Voids 2 # Bowel Movements 1 Results 05/30/24 08:27 05/30/24 08:27 Cardiac Enzymes 05/30/24 Range/Units 08:27 AST 28 (17-59) U/L CBC 05/30/24 Range/Units 08:27 WBC 5.6 (3.8-10.6) k/uL RBC 2.86 L (4.30-5.90) m/uL Hgb 8.4 L (13.0-17.5) gm/dL Hct 27.3 L (39.0-53.0) % Plt Count 151 (150-450) k/uL Comprehensive Metabolic Panel 05/30/24 Range/Units 08:27 Sodium 131 L (137-145) mmol/L Potassium 4.8 (3.5-5.1) mmol/L Chloride 95 L (98-107) mmol/L Carbon Dioxide 28 (22-30) mmol/L BUN 28 H (9-20) mg/dL Creatinine 4.40 H (0.66-1.25) mg/dL Glucose 206 H (74-99) mg/dL Calcium 7.3 L (8.4-10.2) mg/dL AST 28 (17-59) U/L ALT 18 (4-49) U/L Alkaline Phosphatase 213 H (38-126) U/L Total Protein 6.5 (6.3-8.2) g/dL Albumin 2.8 L (3.5-5.0) g/dL Current Medications Generic Name Dose Route Start Last Admin Trade Name Freq PRN Reason Stop Dose Admin Acetaminophen 650 mg 05/26/24 08:33 Acetaminophen Tab 325 Mg Tab PO Q6HR PRN Mild Pain or Fever > 100.5 Hydrocodone Bitart/Acetaminophen 1 each 05/26/24 08:33 05/29/24 23:19 Hydrocodone/Apap 5-325mg 1 Each Tab PO 1 each Q4HR PRN Administration Moderate Pain (Scale 4 to 6) Alprazolam 0.5 mg 05/29/24 21:00 05/29/24 21:08 Alprazolam 0.5 Mg Tab PO 0.5 mg HS MUKUND Administration Amlodipine Besylate 10 mg 05/26/24 09:00 05/30/24 08:28 Amlodipine 10 Mg Tab PO 10 mg DAILY MUKUND Administration Aspirin 81 mg 05/26/24 09:00 05/30/24 08:28 Aspirin 81 Mg PO 81 mg DAILY MUKUND Administration Atorvastatin Calcium 20 mg 05/25/24 21:00 05/29/24 21:08 Atorvastatin 20 Mg Tab PO 20 mg HS MUKUND Administration Benzocaine 1 spray 05/30/24 14:27 Benzocaine Sherwood 1 Can TOPICAL TID PRN Skin Irritation Calcium Acetate 667 mg 05/27/24 12:30 05/30/24 13:12 Calcium Acetate 667 Mg Tab PO 667 mg TID-W/MEALS MUKUND Administration Carvedilol 25 mg 05/25/24 21:00 05/30/24 08:28 Carvedilol 12.5 Mg Tab PO 25 mg BID MUKUND Administration Darbepoetin John 40 mcg 05/26/24 12:00 05/26/24 17:31 Darbepoetin John 40 Mcg/0.4 Ml Syringe SQ 40 mcg Q7D MUKUND Administration Dextrose/Water 25 ml 05/26/24 16:51 Dextrose 50% Syringe 50 Ml IVP PER PROTOCOL PRN Hypoglycemia Protocol Dextrose/Water 50 ml 05/26/24 16:51 05/29/24 05:43 Dextrose 50% Syringe 50 Ml IVP 50 ml PER PROTOCOL PRN Administration Hypoglycemia Protocol Doxazosin Mesylate 4 mg 05/26/24 09:00 05/30/24 08:29 Doxazosin 4 Mg Tab PO 4 mg DAILY MUKUND Administration Fentanyl Citrate 50 mcg 05/30/24 14:27 Fentanyl (Pf) 50 Mcg/Ml 5 Ml Amp IVP 05/31/24 08:27 ONCE PRN Pre-Op Fluoxetine HCl 10 mg 05/26/24 09:00 05/30/24 08:29 Fluoxetine Hcl 10 Mg Cap PO 10 mg DAILY MUKUND Administration Heparin Sodium (Porcine) 5,000 unit 05/26/24 08:00 05/30/24 08:29 Heparin Sodium,Porcine 5,000 Unit/Ml 1 Ml Vial SQ 5,000 unit Q8HR MUKUND Administration Hydralazine HCl 100 mg 05/25/24 22:00 05/30/24 08:27 Hydralazine Hcl 50 Mg Tab PO 100 mg TID MUKUND Administration Ampicillin Sodium/Sulbactam 100 mls @ 200 mls/hr 05/26/24 21:00 05/30/24 08:28 Sodium 3 gm/ Sodium Chloride IVPB 200 mls/hr Q12HR MUKUND Administration Protocol Insulin Aspart 0.01 unit 05/26/24 23:00 05/30/24 13:13 Insulin Aspart (For Pump) 100 Unit/Ml Vial SQ-PUMP Not Given ACHS MUKUND Isosorbide Mononitrate 60 mg 05/26/24 09:00 05/30/24 08:28 Isosorbide Mononitrate Er 60 Mg Tab.Er.24h PO 60 mg DAILY MUKUND Administration Melatonin 3 mg 05/29/24 21:00 05/29/24 21:07 Melatonin 3 Mg Tablet PO 3 mg HS MUKUND Administration Midazolam HCl 1 mg 05/30/24 14:27 Midazolam 2 Mg/2 Ml Vial IV 05/31/24 08:27 ONCE PRN Pre-Op Miscellaneous Information 0 unit 05/30/24 08:39 05/30/24 13:13 Insulin Pump Correction Bolus 1 Unit Misc MISCELLANE 1 unit ACHS PRN Administration Blood Sugar - High Protocol Morphine Sulfate 4 mg 05/26/24 08:33 05/30/24 13:14 Morphine Sulfate 4 Mg/Ml Syringe IV 4 mg Q4HR PRN Administration Severe Pain (Scale 7 to 10) Multivit/Ca Carb/B Cmplx/FA/Prenat 1 each 05/26/24 09:00 05/30/24 08:29 Folic Acid-Vit B Complex-Vit C 1 Cap PO 1 each DAILY MUKUND Administration Pantoprazole Sodium 40 mg 05/26/24 07:30 05/30/24 06:46 Pantoprazole 40 Mg Tablet PO 40 mg [id number] MUKUND Administration Sacubitril/Valsartan 1 each 05/30/24 21:00 Sacubitril/Valsartan 49 Mg-51 Mg Tablet PO BID MUKUND Torsemide 100 mg 05/26/24 09:00 05/30/24 08:27 Torsemide 20 Mg Tab PO 100 mg DAILY MUKUND Administration Intake and Output 05/29/24 05/30/24 05/30/24 22:59 06:59 14:59 Intake Total 600 Output Total 4500 Balance -3900 Intake: Intake, IV Titration 100 Amount Ampicillin-Sulbactam 3 gm 100 In Sodium Chloride 0.9% 100 ml @ 200 mls/hr IVPB Q12HR [facility] Rx#:[id number] Hemodialysis 500 Output: Hemodialysis 2500 Hemodialysis Net Amount 2000 Other: Voiding Method Toilet # Voids 2 # Bowel Movements 1 05/30/24 08:27 05/30/24 08:27
--- NOTE | 2024-05-30 15:48 | P.PN ---
Subjective Progress Note Date: 05/30/24 Principal diagnosis: Reason for follow-up is right heel infected wound with bacteremia Patient is a 58-year-old male with a past medical history significant for diabetes mellitus insulin-dependent end-stage renal disease on hemodialysis also with a nonhealing wound to the right heel area presenting to the hospital with not feeling well patient was noticed to be septic with group a strep bacteremia concerning for the right heel infected wound. On today's evaluation that is 05/30/2024, Patient is afebrile this morning patient denies having any chest pain shortness of breath or cough, the patient is currently on room air, patient denies any abdominal pain no diarrhea no nausea no vomiting denies pain to the right heel wound. Patient white count is 5.6, creatinine is 4.40 blood culture repeat has been negative Objective - Vital Signs Vital signs: Vital Signs Temp 97.9 F 05/30/24 15:18 Pulse 65 05/30/24 15:18 Resp 20 05/30/24 15:18 BP 138/77 05/30/24 15:18 Pulse Ox 95 05/30/24 15:18 FiO2 Intake & Output 05/29/24 05/30/24 05/30/24 18:59 06:59 18:59 Intake Total 600 Output Total 4500 Balance -3900 Intake: Intake, IV Titration 100 Amount Ampicillin-Sulbactam 3 gm 100 In Sodium Chloride 0.9% 100 ml @ 200 mls/hr IVPB Q12HR [facility] Rx#:[id number] Hemodialysis 500 Output: Hemodialysis 2500 Hemodialysis Net Amount 2000 Other: Voiding Method Toilet Toilet # Voids 2 # Bowel Movements 1 - Exam GENERAL DESCRIPTION: Middle-age male lying in bed in no distress RESPIRATORY SYSTEM: Unlabored breathing , decreased breath sounds at bases HEART: S1 S2 regular rate and rhythm , ABDOMEN: Soft , no tenderness EXTREMITIES: Right heel wound is currently dressed - Labs CBC & Chem 7: 05/30/24 08:27 05/30/24 08:27 Labs: Abnormal Lab Results - Last 24 Hours (Table) 05/29/24 05/29/24 05/29/24 Range/Units 16:48 20:59 22:55 RBC (4.30-5.90) m/uL Hgb (13.0-17.5) gm/dL Hct (39.0-53.0) % MCHC (31.0-37.0) g/dL RDW (11.5-15.5) % Sodium (137-145) mmol/L Chloride (98-107) mmol/L BUN (9-20) mg/dL Creatinine (0.66-1.25) mg/dL Glucose (74-99) mg/dL POC Glucose (mg/dL) 364 H 148 H 123 H (70-110) mg/dL Calcium (8.4-10.2) mg/dL Alkaline Phosphatase (38-126) U/L Albumin (3.5-5.0) g/dL 05/30/24 05/30/24 05/30/24 Range/Units 06:42 08:27 08:27 RBC 2.86 L (4.30-5.90) m/uL Hgb 8.4 L (13.0-17.5) gm/dL Hct 27.3 L (39.0-53.0) % MCHC 30.9 L (31.0-37.0) g/dL RDW 17.6 H (11.5-15.5) % Sodium 131 L (137-145) mmol/L Chloride 95 L (98-107) mmol/L BUN 28 H (9-20) mg/dL Creatinine 4.40 H (0.66-1.25) mg/dL Glucose 206 H (74-99) mg/dL POC Glucose (mg/dL) 182 H (70-110) mg/dL Calcium 7.3 L (8.4-10.2) mg/dL Alkaline Phosphatase 213 H (38-126) U/L Albumin 2.8 L (3.5-5.0) g/dL 05/30/24 Range/Units 11:59 RBC (4.30-5.90) m/uL Hgb (13.0-17.5) gm/dL Hct (39.0-53.0) % MCHC (31.0-37.0) g/dL RDW (11.5-15.5) % Sodium (137-145) mmol/L Chloride (98-107) mmol/L BUN (9-20) mg/dL Creatinine (0.66-1.25) mg/dL Glucose (74-99) mg/dL POC Glucose (mg/dL) 176 H (70-110) mg/dL Calcium (8.4-10.2) mg/dL Alkaline Phosphatase (38-126) U/L Albumin (3.5-5.0) g/dL Microbiology - Last 24 Hours (Table) 05/26/24 18:21 Blood Culture - Preliminary Blood 05/26/24 12:07 Blood Culture - Preliminary Blood 05/26/24 11:15 Anaerobic Culture - Preliminary Heel - Right Bacteroides thetaiotaomicron 05/26/24 11:15 Gram Stain - Final Foot - Right Wound Culture - Final Strep A Proteus vulgaris group Assessment and Plan (1) Streptococcal bacteremia Current Visit: Yes Status: Acute Code(s): R78.81 - BACTEREMIA; B95.5 - UNSP STREPTOCOCCUS THE [facility] SN[facility] Code(s): 405886294898 (2) Diabetic ulcer of right foot Current Visit: Yes Status: Acute Code(s): E11.621 - TYPE 2 DIABETES MELLITUS WITH FOOT ULCER; L97.519 - NON-PRS CHRONIC ULCER OTH PRT RIGHT FOOT W UNSP SEVERITY SNOMED Code(s): 638053085 (3) Sepsis Current Visit: Yes Status: Acute Code(s): A41.9 - SEPSIS, UNSPECIFIED ORGANISM SNOMED Code(s): 91566571 Plan: 1patient presented to hospital with sepsis in this patient who did have fever elevated white count and now with streptococcal bacteremia source is likely right heel and diabetic foot ulcer with secondary cellulitis patient did have other possible sources however clinic suspicious low for permacatheter infection unless patient shows evidence of persistent bacteremia and this has been discussed in detail with the admitting as well as nephrology team 2-blood cultures has been repeated and so far negative local culture currently growing strep Proteus and bacteroids 3-patient to continue local wound care to the right heel with Aquacel dressing change q. 48-hour 4-patient did have abnormality seen on the mitral valve ALYSIA has been requested for better definition to rule out endocarditis and has been scheduled for tomorrow 5for now we will continue with the Unasyn till workup is completed to determine discharge antibiotics Dictation was produced using Video[employer] dictation software. please excuse any grammatical, word or spelling errors. Time with Patient: Less than 30
[2024-05-30 16:46] LABS: Glucose,Whole Blood 162 mg/dL (70-110)
[2024-05-30 20:12] LABS: Glucose,Whole Blood 112 mg/dL (70-110)
[2024-05-30] MEDS: SACUBITRIL/VALSARTAN 49 MG-51 MG TABLET PO SCH (22:02)
[2024-05-31] MEDS: DEXTROSE 50% SYRINGE 50 ML IVP PRN (03:04)
[2024-05-31 03:05] LABS: Glucose,Whole Blood 59 mg/dL (70-110)
[2024-05-31 03:28] LABS: Glucose,Whole Blood 98 mg/dL (70-110)
[2024-05-31 04:31] LABS: Glucose,Whole Blood 69 mg/dL (70-110)
[2024-05-31 05:14] LABS: Glucose,Whole Blood 124 mg/dL (70-110)
[2024-05-31] MEDS: IV FLUID CONTINUATION 1,000 ML IV ONE (08:20)
[2024-05-31 08:34] LABS: HCT 25.5 % (39.6-50.0); HGB 7.8 g/dL (13.0-17.0); MCH 28.6 pg (27.0-32.0); MCHC 30.6 g/dL (32.0-37.0); MCV 93.4 FL (80.0-97.0); Mean Platelet Volume 13.6 FL (9.5-12.2); NRBC Per 100 WBC 0.02 X 10*3/uL (0.00-0.01); Platelet Count 175 X 10*3/uL (140-440); RBC 2.73 X 10*6/uL (4.40-5.60); RDW 18.2 % (11.5-14.5); WBC 7.11 X 10*3/uL (4.50-10.00)
[2024-05-31 08:35] LABS: ALT 18 U/L (10-49); AST 22 U/L (14-35); Albumin 2.7 g/dL (3.8-4.9); Albumin/Globulin Ratio 0.79 Ratio (1.60-3.17); Alkaline Phosphatase 261 U/L (41-126); BUN/Creat Ratio 6.53 Ratio (12.00-20.00); Blood Urea Nitrogen 34.6 mg/dL (9.0-27.0); Calcium 7.6 mg/dL (8.7-10.3); Carbon Dioxide 25.9 mmol/L (21.6-31.8); Chloride 97 mmol/L (96-109); Globulin 3.4 g/dL (1.6-3.3); Glucose 89 mg/dL (70-110); Potassium 4.8 mmol/L (3.5-5.5); Sodium 133 mmol/L (135-145); Total Bilirubin 0.3 mg/dL (0.3-1.2); Total Protein 6.1 g/dL (6.2-8.2)
[2024-05-31 08:36] LABS: Glucose,Whole Blood 224 mg/dL (70-110)
[2024-05-31] MEDS: fentaNYL (PF) 50 MCG/ML 2 ML AMP IVP ONE (08:38)
[2024-05-31] MEDS: BENZOCAINE SPRAY 1 EACH MM ONE (08:38)
[2024-05-31] MEDS: MIDAZOLAM 2 MG/2 ML VIAL IVP ONE (08:38)
--- NOTE | 2024-05-31 09:21 | ECHOT ---
TRANSESOPHAGEAL ECHOCARDIOGRAM INDICATION: Bacteremia, rule out infective endocarditis. PROCEDURE NOTE: After obtaining informed consent, transesophageal echocardiogram was performed in left lateral position using an Omniplane probe. Local and IV sedation were obtained using Xylocaine spray, 2 mg of Versed. The patient tolerated the procedure well without any obvious immediate complications. Total sedation time was 10 minutes. FINDINGS: 1. Mitral valve appears anatomically normal. There is mild to moderate central mitral regurgitation noted. No vegetation is noted on the mitral valve. Tricuspid valve appears normal. There is mild to moderate tricuspid regurgitation without any vegetation. Aortic valve is a 3-leaflet valve. There is some thickening of the aortic valve leaflets, but I do not see any definitive echodense lesions consistent with the appearance of a vegetation. There is no evidence of aortic stenosis or regurgitation. Aortic root measures within normal limits. There is biatrial enlargement, interatrial septum. There is no evidence of [id number] shunt by color-flow Doppler or [id number]-[id number] shunt by agitated saline contrast study. 2. Left ventricle appears mildly dilated, shows diffuse global hypokinesis with mild LV dysfunction with an ejection fraction of 50%. CONCLUSIONS: 1. No obvious vegetation noted on aortic, mitral, tricuspid and pulmonary valves. 2. There is thickening of the aortic valve leaflets of unclear clinical significance. RECOMMENDATIONS: If the patient has persistent blood cultures, please consider treating him with antibiotics for longer duration. MMODL / IJN: [id number] /
[2024-05-31 11:38] LABS: Glucose,Whole Blood 190 mg/dL (70-110)
--- NOTE | 2024-05-31 12:03 | P.PN ---
Subjective patient is seen for follow-up for end-stage renal disease. Scheduled for hemodialysis today. patient has sutures at the site of his recent left arm AV fistula which was placed about a month ago. The area also appears to be slightly red. Patient is maintained on antibiotics for lower extremity cellulitis. Objective - Vital Signs Vital signs: Vital Signs Temp 98.2 F 05/31/24 09:11 Pulse 69 05/31/24 09:11 Resp 18 05/31/24 09:11 BP 154/62 05/31/24 09:11 Pulse Ox 91 L 05/31/24 09:11 FiO2 Intake & Output 05/30/24 05/31/24 05/31/24 18:59 06:59 18:59 Intake Total 25 Balance 25 Intake: IV 25 Other: Voiding Method Toilet # Voids 2 2 # Bowel Movements 1 - Exam patient is awake, comfortable, no acute distress. Examination of the heart S1 and S2 Examination of the lungs bilateral breath sounds are heard Abdomen is soft nontender Examination of lower extremities shows 1+ edema [employer] exam grossly intact - Labs CBC & Chem 7: 05/31/24 03:23 05/31/24 03:23 Labs: Abnormal Lab Results - Last 24 Hours (Table) 05/30/24 05/30/24 05/30/24 Range/Units 08:32 16:45 20:10 RBC (4.40-5.60) X 10*6/uL Hgb (13.0-17.0) g/dL Hct (39.6-50.0) % MCHC (32.0-37.0) g/dL RDW (11.5-14.5) % MPV (9.5-12.2) FL NRBC/100 WBC Diff (0.00-0.01) X 10*3/uL Sodium (135-145) mmol/L BUN (9.0-27.0) mg/dL Creatinine (0.6-1.5) mg/dL Est GFR (CKD-EPI) (>=60) BUN/Creatinine Ratio (12.00-20.00) Ratio POC Glucose (mg/dL) 224 H 162 H 112 H (70-110) mg/dL Calcium (8.7-10.3) mg/dL Alkaline Phosphatase (41-126) U/L Total Protein (6.2-8.2) g/dL Albumin (3.8-4.9) g/dL Globulin (1.6-3.3) g/dL Albumin/Globulin Ratio (1.60-3.17) Ratio 05/31/24 05/31/24 05/31/24 Range/Units 03:00 03:23 03:23 RBC 2.73 L (4.40-5.60) X 10*6/uL Hgb 7.8 L (13.0-17.0) g/dL Hct 25.5 L (39.6-50.0) % MCHC 30.6 L (32.0-37.0) g/dL RDW 18.2 H (11.5-14.5) % MPV 13.6 H (9.5-12.2) FL NRBC/100 WBC Diff 0.02 H (0.00-0.01) X 10*3/uL Sodium 133 L (135-145) mmol/L BUN 34.6 H (9.0-27.0) mg/dL Creatinine 5.3 H (0.6-1.5) mg/dL Est GFR (CKD-EPI) 12 L (>=60) BUN/Creatinine Ratio 6.53 L (12.00-20.00) Ratio POC Glucose (mg/dL) 59 L (70-110) mg/dL Calcium 7.6 L (8.7-10.3) mg/dL Alkaline Phosphatase 261 H (41-126) U/L Total Protein 6.1 L (6.2-8.2) g/dL Albumin 2.7 L (3.8-4.9) g/dL Globulin 3.4 H (1.6-3.3) g/dL Albumin/Globulin Ratio 0.79 L (1.60-3.17) Ratio 05/31/24 05/31/24 05/31/24 Range/Units 04:28 05:13 11:36 RBC (4.40-5.60) X 10*6/uL Hgb (13.0-17.0) g/dL Hct (39.6-50.0) % MCHC (32.0-37.0) g/dL RDW (11.5-14.5) % MPV (9.5-12.2) FL NRBC/100 WBC Diff (0.00-0.01) X 10*3/uL Sodium (135-145) mmol/L BUN (9.0-27.0) mg/dL Creatinine (0.6-1.5) mg/dL Est GFR (CKD-EPI) (>=60) BUN/Creatinine Ratio (12.00-20.00) Ratio POC Glucose (mg/dL) 69 L 124 H 190 H (70-110) mg/dL Calcium (8.7-10.3) mg/dL Alkaline Phosphatase (41-126) U/L Total Protein (6.2-8.2) g/dL Albumin (3.8-4.9) g/dL Globulin (1.6-3.3) g/dL Albumin/Globulin Ratio (1.60-3.17) Ratio Assessment and Plan Assessment: 1. End-stage renal disease maintained on hemodialysis on Friday schedule via permacath. He has a maturing left upper extremity AV fistula. 2. Right foot wound. On antibiotics. 3. Strep bacteremia. Likely source heel ulcer is wound culture also positive for strep. 4. Hypertension with chronic kidney disease. Stable. 5. Diabetes mellitus. 6. Chronic kidney disease mineral bone disease. Phosphorus level 6.0 dated May 26, 2024. On PhosLo. 7. Anemia of chronic kidney disease. On Aranesp. 8. Hyponatremia secondary to chronic kidney disease. Hypervolemic. 9. Mild hyperkalemia secondary to chronic kidney disease and hyperglycemia. Also on Diovan. Improved. 10. Erythema noted at site of left upper extremity AV fistula. Maintained on IV antibiotics. Nursing staff to remove sutures. Discussed with [facility] vascular. Plan: continue with antibiotics. Okay to remove sutures from AV fistula in left upper arm. Discussed with vascular. Hemodialysis today
--- NOTE | 2024-05-31 12:43 | P.PN ---
Subjective Progress Note Date: 05/31/24 Principal diagnosis: Reason for follow-up is right heel infected wound with bacteremia Patient is a 58-year-old male with a past medical history significant for diabetes mellitus insulin-dependent end-stage renal disease on hemodialysis also with a nonhealing wound to the right heel area presenting to the hospital with not feeling well patient was noticed to be septic with group a strep bacteremia concerning for the right heel infected wound. On today's evaluation that is 05/31/2024,the patient denies any fever or any chills, patient is breathing comfortably on room air, the patient denies chest pain shortness of breath and no significant cough, patient denies abdominal pain, no nausea vomiting or diarrhea. Did have some erythema to the left arm fistula site but no drainage and denies any worsening pain to the right heel. Patient white count is 7.11, creatinine is 5.3 Objective - Vital Signs Vital signs: Vital Signs Temp 98.2 F 05/31/24 09:11 Pulse 69 05/31/24 09:11 Resp 18 05/31/24 09:11 BP 154/62 05/31/24 09:11 Pulse Ox 91 L 05/31/24 09:11 FiO2 Intake & Output 05/30/24 05/31/24 05/31/24 18:59 06:59 18:59 Intake Total 25 Balance 25 Intake: IV 25 Other: Voiding Method Toilet # Voids 2 2 # Bowel Movements 1 - Exam GENERAL DESCRIPTION: Middle-age male lying in bed in no distress RESPIRATORY SYSTEM: Unlabored breathing , decreased breath sounds at bases HEART: S1 S2 regular rate and rhythm , ABDOMEN: Soft , no tenderness EXTREMITIES: Right heel wound is currently dressed, left upper arm graft site with minimal erythema no drainage - Labs CBC & Chem 7: 05/31/24 03:23 05/31/24 03:23 Labs: Abnormal Lab Results - Last 24 Hours (Table) 05/30/24 05/30/24 05/30/24 Range/Units 08:32 16:45 20:10 RBC (4.40-5.60) X 10*6/uL Hgb (13.0-17.0) g/dL Hct (39.6-50.0) % MCHC (32.0-37.0) g/dL RDW (11.5-14.5) % MPV (9.5-12.2) FL NRBC/100 WBC Diff (0.00-0.01) X 10*3/uL Sodium (135-145) mmol/L BUN (9.0-27.0) mg/dL Creatinine (0.6-1.5) mg/dL Est GFR (CKD-EPI) (>=60) BUN/Creatinine Ratio (12.00-20.00) Ratio POC Glucose (mg/dL) 224 H 162 H 112 H (70-110) mg/dL Calcium (8.7-10.3) mg/dL Alkaline Phosphatase (41-126) U/L Total Protein (6.2-8.2) g/dL Albumin (3.8-4.9) g/dL Globulin (1.6-3.3) g/dL Albumin/Globulin Ratio (1.60-3.17) Ratio 05/31/24 05/31/24 05/31/24 Range/Units 03:00 03:23 03:23 RBC 2.73 L (4.40-5.60) X 10*6/uL Hgb 7.8 L (13.0-17.0) g/dL Hct 25.5 L (39.6-50.0) % MCHC 30.6 L (32.0-37.0) g/dL RDW 18.2 H (11.5-14.5) % MPV 13.6 H (9.5-12.2) FL NRBC/100 WBC Diff 0.02 H (0.00-0.01) X 10*3/uL Sodium 133 L (135-145) mmol/L BUN 34.6 H (9.0-27.0) mg/dL Creatinine 5.3 H (0.6-1.5) mg/dL Est GFR (CKD-EPI) 12 L (>=60) BUN/Creatinine Ratio 6.53 L (12.00-20.00) Ratio POC Glucose (mg/dL) 59 L (70-110) mg/dL Calcium 7.6 L (8.7-10.3) mg/dL Alkaline Phosphatase 261 H (41-126) U/L Total Protein 6.1 L (6.2-8.2) g/dL Albumin 2.7 L (3.8-4.9) g/dL Globulin 3.4 H (1.6-3.3) g/dL Albumin/Globulin Ratio 0.79 L (1.60-3.17) Ratio 05/31/24 05/31/24 05/31/24 Range/Units 04:28 05:13 11:36 RBC (4.40-5.60) X 10*6/uL Hgb (13.0-17.0) g/dL Hct (39.6-50.0) % MCHC (32.0-37.0) g/dL RDW (11.5-14.5) % MPV (9.5-12.2) FL NRBC/100 WBC Diff (0.00-0.01) X 10*3/uL Sodium (135-145) mmol/L BUN (9.0-27.0) mg/dL Creatinine (0.6-1.5) mg/dL Est GFR (CKD-EPI) (>=60) BUN/Creatinine Ratio (12.00-20.00) Ratio POC Glucose (mg/dL) 69 L 124 H 190 H (70-110) mg/dL Calcium (8.7-10.3) mg/dL Alkaline Phosphatase (41-126) U/L Total Protein (6.2-8.2) g/dL Albumin (3.8-4.9) g/dL Globulin (1.6-3.3) g/dL Albumin/Globulin Ratio (1.60-3.17) Ratio Assessment and Plan (1) Streptococcal bacteremia Current Visit: Yes Status: Acute Code(s): R78.81 - BACTEREMIA; B95.5 - UNSP STREPTOCOCCUS THE CAUSE OF DISEASES [facility] SNOMED Code(s): 939108735383 (2) Diabetic ulcer of right foot Current Visit: Yes Status: Acute Code(s): E11.621 - TYPE 2 DIABETES MELLITUS WITH FOOT ULCER; L97.519 - NON-PRS CHRONIC ULCER OTH PRT RIGHT FOOT W UNSP SEVERITY SNOMED Code(s): 571979901 (3) Sepsis Current Visit: Yes Status: Acute Code(s): A41.9 - SEPSIS, UNSPECIFIED ORGANISM SNOMED Code(s): 35886814 Plan: 1patient presented to hospital with sepsis in this patient who did have fever elevated white count and now with streptococcal bacteremia source is likely right heel and diabetic foot ulcer with secondary cellulitis patient did have other possible sources however clinic suspicious low for permacatheter infection unless patient shows evidence of persistent bacteremia and this has been discussed in detail with the admitting as well as nephrology team 2-blood cultures has been repeated and so far negative local culture currently growing strep Proteus and bacteroids 3-patient to continue local wound care to the right heel with Aquacel dressing change q. 48-hour 4-patient did have abnormality seen on the mitral valve ALYSIA has been negative for any vegetation 5patient will be advised cefazolin with dialysis x 4-week as he did have a graft as well as a permacatheter along with oral Flagyl and he will follow-up with the wound care center for continued treatment of the right heel wound pr escription provided Dictation was produced using [employer] dictation software. please excuse any gramm atical, word or spelling errors. Time with Patient: Less than 30
--- NOTE | 2024-05-31 13:34 | P.PN ---
Subjective Progress Note Date: 05/31/24 Hospital course: Patient is a pleasant 58-year-old male with a past medical history of ESRD on hemodialysis, systolic heart failure with EF of 40%, moderate pulmonary hypertension, hypertension, hyperlipidemia, and insulin-dependent diabetes mellitus on insulin pump. He presented to the hospital on 05/25/2024 with a chief complaint of weakness. Upon arrival to our facility patient underwent evaluation in the emergency department. Vital signs upon arrival show blood pressure 151/80, heart rate 91, respiratory rate 22, temp 102.3 F, and SpO2 of 94% on room air. EKG completed showing normal sinus rhythm at 88 bpm with no significant T wave or ST abnormality showing no signs of acute ischemia upon personal review and interpretation. Chest x-ray completed showing cardiomegaly with subsegmental left retrocardiac atelectasis. X-ray right foot showing soft tissue swelling of fifth metatarsal phalangeal joint space otherwise negative for suspicious changes to suggest osteomyelitis. Labs were completed and reviewed. CBC showing leukocytosis with WBC count of 14.4 and normocytic anemia with hemoglobin of 9.5. Coagulation profile showing elevated PT of 13.0 and INR of 1.2. BMP showing hyponatremia with sodium of 128, hyperkalemia with potassium of 5.8, and hypochloremia with chloride of 92 and elevated renal function with BUN of 45, creatinine of 5.31, and GFR of 11. Blood glucose was 372. Lactic acid was 1.7. Urinalysis negative for infection. Acetone was negative. Influenza A, influenza B, RSV, and COVID PCR were negative. Patient was started on broad-spectrum antibiotics with vancomycin and Rocephin. He was admitted under our services with consultation to nephrology and infectious disease. Blood culture positive for strep pyogenes (group A strep). Arobic Wound cultures of right foot/heel positive for Group A strep Proteus vulgaris group resistant to ampicillin, tetracycline and cefazolin but susceptible to Unasyn. Anaerobic culture of right foot/heel showing preliminarily positive for Bacteroides thetaiotaomicron. Physical exam: Patient seen and fully evaluated at bedside this morning upon return from ALYSIA. Reports feeling sleepy from medications administered during ALYSIA, and otherwise denies any other complaints. Vital signs reviewed and stable. General: Nontoxic, no distress and appears stated age. Derm: Skin warm and dry, normal coloration for ethnicity. Ulcer right heel Head: Atraumatic, normocephalic and symmetric. Eyes: EOM's intact, no lid lag, and anicteric sclera Mouth: no lip lesions, mucus membranes moist Cardiovascular: regular rate and rhythm with normal S1S2, systolic murmur, positive posterior tibial pulses bilaterally, AV fistula left upper extremity with bruit and thrill in place. Permacath Left anterior chest Lungs: Respirations even, regular, and unlabored on room air. Lungs CTA bilaterally, no rhonchi, no rales, no wheezing, and no accessory muscle usage. Abdominal: soft, nontender to palpation, no guarding, no appreciable organ omegaly Ext: ROM intact. No gross muscle atrophy, bilateral lower extremity edema, no contractures Neuro: Speech clear, face symmetrical and CN II-XII grossly intact with no noted focal neuro deficits Psych: Alert and oriented to person, place, time, and situation. Appropriate and pleasant affect. Assessment and Plan of Care: Group A Strep Bacteremia Infected diabetic ulcer of right heel Group A strep Proteus vulgaris group and Bacteroides thetaiotaomicron Sepsis upon arrival, secondary to above -Continue IV antibiotics with Unasyn 3 g every 12 hours. -Infectious disease following, discussed in detail with Dr. Rodriguez will plan for discharge home tomorrow morning on IV antibiotics with cefazolin with dialysis 4 times weekly and oral Flagyl. -Echocardiogram showing a reduced EF of 30 to 35% with severe pulmonary hypertension and moderate to severe mitral regurgitation with thickened mitral valve leaflets. (Previous echocardiogram completed/02/10 showing an EF of 40% with mild to moderate mitral regurgitation and mild to moderate pulmonic regurgitation). -ALYSIA completed showing thickened aortic valve leaflets with no obvious vegetation noted on aortic, mitral, tricuspid, and pulmonary valves. -Repeat blood cultures negative. -Symptomatic care and pain management with Tylenol 650 mg every 6 hours as needed for mild pain, [place] 5/325 mg tablets every 4 hours as needed for moderate pain, and morphine 4 mg IVP every 4 hours as needed for severe pain. ESRD on hemodialysis Anemia of chronic disease, secondary to ESRD Hyperkalemia, secondary to above. Resolved Hyponatremia secondary to hypervolemia, improving after hemodialysis -Nephrology following and managing hemodialysis. Discussed case in detail with Dr. Elliott patient to be maintained on current dialysis schedule Friday/Friday/Fridays with continuation of Aranesp.. -Continue torsemide 100 mg daily. Insulin Dependent Diabetes mellitus with hyperglycemia Patient to continue use of personal insulin pump. Continue Accu-Cheks ACHS Chronic systolic heart failure with a EF of 40%. Patient to continue cardiac medication regimen with aspirin 81 mg daily, amlodipine 10 mg daily, atorvastatin 20 mg daily, carvedilol 25 mg twice daily, hydralazine 100 mg 3 times daily, valsartan 160 mg daily, isosorbide mononitrate 60 mg daily, clonidine patch weekly with dose of 0.1 mg every 24 hours, and torsemide 100 mg daily. Patient also to be given midodrine 5 mg daily as needed for hypotension. Hypertension. Continue medication regimen with amlodipine 10 mg daily,carvedilol 25 mg twice daily, hydralazine 100 mg 3 times daily, clonidine patch weekly with dose of 0.1 mg every 24 hours, and torsemide 100 mg daily. Hyperlipidemia. Continue medication regimen with atorvastatin 20 mg daily. Data and imaging reviewed: -Labs reviewed. CBC showing normocytic anemia with hemoglobin of 7.8. BMP showing hyponatremia with sodium of 133 and renal function consistent with ESRD with BUN of 34.6, creatinine 5.3, GFR of 12. Blood glucose 206. Magnesium 1.9. Liver profile showing elevated alkaline phosphatase of 213 and hypoalbuminemia with albumin of 2.8. -Vital signs reviewed. Blood pressure 154/62, heart rate 69, respiratory rate 18, temp 98.2 F, and SpO2 of 91% on room air. -ALYSIA completed showing thickened aortic valve leaflets with no obvious vegetation noted on aortic, mitral, tricuspid, and pulmonary valves. CODE STATUS: Full code DVT prophylaxis: Heparin Anticipated discharge date: Tomorrow morning, continuous pillowcase cutter working on set up of home IV antibiotics Anticipated discharge place: Home Patient was seen independently by Nurse Pracitioner. This document was prepared using [employer] dictation software. Please allow for errors in sort manager, while rare they do occur. Anton Salgado NP rendered care for this patient independently, reviewed the findings and plan as documented in the note above and agree with plan. I did not physically speak with or examine the patient on this date. Objective - Vital Signs Vital signs: Vital Signs Temp 97.8 F 05/31/24 08:00 Pulse 69 05/31/24 08:00 Resp 18 05/31/24 08:00 BP 150/67 05/31/24 08:00 Pulse Ox 92 L 05/31/24 08:00 FiO2 Intake & Output 05/30/24 05/31/24 05/31/24 18:59 06:59 18:59 Other: Voiding Method Toilet # Voids 2 2 # Bowel Movements 1 - Labs CBC & Chem 7: 05/31/24 03:23 05/31/24 03:23 Labs: Abnormal Lab Results - Last 24 Hours (Table) 05/30/24 05/30/24 05/30/24 Range/Units 08:27 08:27 11:59 RBC 2.86 L (4.30-5.90) m/uL Hgb 8.4 L (13.0-17.5) gm/dL Hct 27.3 L (39.0-53.0) % MCHC 30.9 L (31.0-37.0) g/dL RDW 17.6 H (11.5-15.5) % Sodium 131 L (137-145) mmol/L Chloride 95 L (98-107) mmol/L BUN 28 H (9-20) mg/dL Creatinine 4.40 H (0.66-1.25) mg/dL Glucose 206 H (74-99) mg/dL POC Glucose (mg/dL) 176 H (70-110) mg/dL Calcium 7.3 L (8.4-10.2) mg/dL Alkaline Phosphatase 213 H (38-126) U/L Albumin 2.8 L (3.5-5.0) g/dL 05/30/24 05/30/24 05/31/24 Range/Units 16:45 20:10 03:00 RBC (4.30-5.90) m/uL Hgb (13.0-17.5) gm/dL Hct (39.0-53.0) % MCHC (31.0-37.0) g/dL RDW (11.5-15.5) % Sodium (137-145) mmol/L Chloride (98-107) mmol/L BUN (9-20) mg/dL Creatinine (0.66-1.25) mg/dL Glucose (74-99) mg/dL POC Glucose (mg/dL) 162 H 112 H 59 L (70-110) mg/dL Calcium (8.4-10.2) mg/dL Alkaline Phosphatase (38-126) U/L Albumin (3.5-5.0) g/dL 05/31/24 05/31/24 Range/Units 04:28 05:13 RBC (4.30-5.90) m/uL Hgb (13.0-17.5) gm/dL Hct (39.0-53.0) % MCHC (31.0-37.0) g/dL RDW (11.5-15.5) % Sodium (137-145) mmol/L Chloride (98-107) mmol/L BUN (9-20) mg/dL Creatinine (0.66-1.25) mg/dL Glucose (74-99) mg/dL POC Glucose (mg/dL) 69 L 124 H (70-110) mg/dL Calcium (8.4-10.2) mg/dL Alkaline Phosphatase (38-126) U/L Albumin (3.5-5.0) g/dL Microbiology - Last 24 Hours (Table) 05/26/24 18:21 Blood Culture - Preliminary Blood
[2024-05-31 16:51] LABS: Glucose,Whole Blood 95 mg/dL (70-110)
[2024-05-31 21:03] LABS: Glucose,Whole Blood 198 mg/dL (70-110)
[2024-06-01 06:32] LABS: Glucose,Whole Blood 65 mg/dL (70-110)
[2024-06-01 06:56] LABS: Glucose,Whole Blood 65 mg/dL (70-110)
[2024-06-01 07:19] LABS: Glucose,Whole Blood 64 mg/dL (70-110)
[2024-06-01 08:01] LABS: Glucose,Whole Blood 107 mg/dL (70-110)
[2024-06-01 08:36] VITALS: BP 152/79; PULSE 71; RESP 16; TEMP 98
[2024-06-01 09:18] LABS: HCT 26.7 % (39.6-50.0); MCH 28.4 pg (27.0-32.0); MCV 94.7 FL (80.0-97.0); Mean Platelet Volume 13.7 FL (9.5-12.2); NRBC Per 100 WBC 0 X 10*3/uL (0.00-0.01); Platelet Count 180 X 10*3/uL (140-440); RBC 2.82 X 10*6/uL (4.40-5.60); RDW 18.4 % (11.5-14.5); WBC 6.27 X 10*3/uL (4.50-10.00)
[2024-06-01 09:55] LABS: ALT 17 U/L (10-49); AST 18 U/L (14-35); Albumin 2.8 g/dL (3.8-4.9); Albumin/Globulin Ratio 0.78 Ratio (1.60-3.17); Alkaline Phosphatase 257 U/L (41-126); BUN/Creat Ratio 5.46 Ratio (12.00-20.00); Blood Urea Nitrogen 22.4 mg/dL (9.0-27.0); Calcium 7.6 mg/dL (8.7-10.3); Carbon Dioxide 26.5 mmol/L (21.6-31.8); Chloride 96 mmol/L (96-109); Globulin 3.6 g/dL (1.6-3.3); Glucose 103 mg/dL (70-110); Potassium 4.3 mmol/L (3.5-5.5); Sodium 135 mmol/L (135-145); Total Bilirubin 0.3 mg/dL (0.3-1.2); Total Protein 6.4 g/dL (6.2-8.2)
--- NOTE | 2024-06-01 09:58 | P.DS ---
Providers Date of admission: 05/25/24 19:28 Expected date of discharge: 06/01/24 Attending physician: Raine Graves MD Consults: 05/26/24 00:40 Consult Physician Routine Consulting Provider: Osiris Rodriguez Consult Reason/Comments: R heel ulcer Do you want consulting provider notified?: Yes, Notify in am 05/26/24 00:43 Consult Physician Routine Consulting Provider: Juan Miguel Elliott Consult Reason/Comments: dialysis Do you want consulting provider notified?: Yes, Notify in am 05/28/24 15:39 Consult Physician Routine Consulting Provider: Myke Means Consult Reason/Comments: consult for worsening EF % request for ALYSIA to r/o endocarditis + bacteremia Do you want consulting provider notified?: Yes Primary care physician: Devon Mattson [facility] Course: Discharge Diagnosis: Group A Strep Bacteremia. Repeat blood cultures negative showing no growth. Patient completed a 7-day course of IV antibiotics with Unasyn, he was evaluated by nephrology and infectious disease. Patient being discharged home to continue IV antibiotics with cefazolin 4 times weekly at dialysis and oral Flagyl. Patient is to follow-up outpatient with PCP in 2 days, chief librarian branch in 1 week, and infectious disease in 1 week. Infected diabetic ulcer of right heel Group A strep Proteus vulgaris group and Bacteroides thetaiotaomicron Sepsis upon arrival, secondary to above ESRD on hemodialysis Anemia of chronic disease, secondary to ESRD Hyperkalemia, secondary to above. Resolved Hyponatremia secondary to hypervolemia, improving after hemodialysis Insulin Dependent Diabetes mellitus with hyperglycemia Patient to continue use of personal insulin pump. Chronic systolic heart failure with a EF of 40%. Patient to continue cardiac medication regimen with aspirin 81 mg daily, amlodipine 10 mg daily, atorvastatin 20 mg daily, carvedilol 25 mg twice daily, hydralazine 100 mg 3 times daily, valsartan 160 mg daily, isosorbide mononitrate 60 mg daily, clonidine patch weekly with dose of 0.1 mg every 24 hours, and torsemide 100 mg daily. Patient also to be given midodrine 5 mg daily as needed for hypotension. Hypertension. Continue medication regimen with amlodipine 10 mg daily,carvedilol 25 mg twice daily, hydralazine 100 mg 3 times daily, clonidine patch weekly with dose of 0.1 mg every 24 hours, and torsemide 100 mg daily. Hyperlipidemia. Continue medication regimen with atorvastatin 20 mg daily. Hospital course: Patient is a pleasant 58-year-old male with a past medical history of ESRD on hemodialysis, systolic heart failure with EF of 40%, moderate pulmonary hypertension, hypertension, hyperlipidemia, and insulin-dependent diabetes mellitus on insulin pump. He presented to the hospital on 05/25/2024 with a chief complaint of weakness. Upon arrival to our facility patient underwent evaluation in the emergency department. Vital signs upon arrival show blood pressure 151/80, heart rate 91, respiratory rate 22, temp 102.3 F, and SpO2 of 94% on room air. EKG completed showing normal sinus rhythm at 88 bpm with no significant T wave or ST abnormality showing no signs of acute ischemia upon personal review and interpretation. Chest x-ray completed showing cardiomegaly with subsegmental left retrocardiac atelectasis. X-ray right foot showing soft tissue swelling of fifth metatarsal phalangeal joint space otherwise negative for suspicious changes to suggest osteomyelitis. Labs were completed and reviewed. CBC showing leukocytosis with WBC count of 14.4 and normocytic anemia with hemoglobin of 9.5. Coagulation profile showing elevated PT of 13.0 and INR of 1.2. BMP showing hyponatremia with sodium of 128, hyperkalemia with potassium of 5.8, and hypochloremia with chloride of 92 and elevated renal function with BUN of 45, creatinine of 5.31, and GFR of 11. Blood glucose was 372. Lactic acid was 1.7. Urinalysis negative for infection. Acetone was negative. Influenza A, influenza B, RSV, and COVID PCR were negative. Patient was started on broad-spectrum antibiotics with vancomycin and Rocephin. He was admitted under our services with consultation to nephrology and infectious disease. Blood culture positive for strep pyogenes (group A strep). Arobic Wound cultures of right foot/heel positive for Group A strep Proteus vulgaris group resistant to ampicillin, tetracycline and cefazolin but susceptible to Unasyn. Anaerobic culture of right foot/heel showing preliminarily positive for Bacteroides thetaiotaomicron. Repeat blood cultures showing no growth to date. Echocardiogram showing a reduced EF of 30 to 35% with severe pulmonary hypertension and moderate to severe mitral regurgitation with thickened mitral valve leaflets. (Previous echocardiogram completed/02/10 showing an EF of 40% with mild to moderate mitral regurgitation and mild to moderate pulmonic regurgitation). ALYSIA completed showing thickened aortic valve leaflets with no obvious vegetation noted on aortic, mitral, tricuspid, and pulmonary valves. Patient completed a 7-day course of IV antibiotics with Unasyn, he was evaluated by nephrology and infectious disease. Patient being discharged home to continue IV antibiotics with cefazolin 4 times weekly at dialysis and oral Flagyl. Patient is to follow-up outpatient with PCP in 2 days, chief librarian branch in 1 week, and infectious disease in 1 week. Physical exam: Vital signs reviewed and stable. General: Nontoxic, no distress and appears stated age. Derm: Skin warm and dry, normal coloration for ethnicity. Ulcer right heel Head: Atraumatic, normocephalic and symmetric. Eyes: EOM's intact, no lid lag, and anicteric sclera Mouth: no lip lesions, mucus membranes moist Cardiovascular: regular rate and rhythm with normal S1S2, systolic murmur, positive posterior tibial pulses bilaterally, AV fistula left upper extremity with bruit and thrill in place. Permacath Left anterior chest Lungs: Respirations even, regular, and unlabored on room air. Lungs CTA bilaterally, no rhonchi, no rales, no wheezing, and no accessory muscle usage. Abdominal: soft, nontender to palpation, no guarding, no appreciable organomegaly Ext: ROM intact. No gross muscle atrophy, bilateral lower extremity edema, no contractures Neuro: Speech clear, face symmetrical and CN II-XII grossly intact with no noted focal neuro deficits Psych: Alert and oriented to person, place, time, and situation. Appropriate and pleasant affect. A total of 39 minutes of time were spent preparing this complex discharge summary. Pt was discharged on 06/01/2024 at 9:54 AM. Patient was seen independently by Nurse Practitioner. This document was prepared using [employer] dictation software. Please allow for errors in regional truck driver while rare they do occur. Anton Salgado NP rendered care for this patient independently, reviewed the find ings and plan as documented in the note above. I did not physically speak with or examine the patient on this date. Patient Condition at Discharge: Stable Plan - Discharge Summary Discharge Rx Participant: No New Discharge Prescriptions: New Darbepoetin John [Aranesp] 40 mcg SQ Q7D each Sacubitril/Valsartan [Entresto 49 mg-51 mg Tablet] 1 each PO BID 30 Days #60 tab HYDROcodone/APAP 5-325MG [Sauquoit 5-325] 1 each PO Q4HR PRN #18 tab PRN Reason: Moderate Pain (Scale 4 To 6) Pantoprazole [Protonix] 40 mg PO AC-BRKFST 30 Days #30 tab ALPRAZolam [Xanax] 0.5 mg PO HS PRN 7 Days #7 tab PRN Reason: Insomnia metroNIDAZOLE [Flagyl] 500 mg PO TID #80 tab Melatonin 3 mg PO HS 30 Days #30 tab Calcium Acetate [PhosLo] 667 mg PO TID-W/MEALS 30 Days #90 tab Continue Insulin Aspart (For Pump) [NovoLOG (For Pump)] 0.01 unit SQ-PUMP CONTINUOUS FLUoxetine HCL [PROzac] 10 mg PO DAILY Atorvastatin [Lipitor] 20 mg PO HS Folic Acid/Vit B Complex and C [Lilian-Marsha Tablet] 0.8 mg PO DAILY Aspirin 81 mg PO DAILY 30 Days #30 tab Torsemide [Demadex] 100 mg PO DAILY Doxazosin [Cardura] 4 mg PO DAILY cloNIDine 0.1 MG/24HR PATCH [Catapres-TTS] 1 patch TRANSDERM WE hydrALAZINE HCL [Apresoline] 100 mg PO TID amLODIPine [Norvasc] 10 mg PO DAILY Isosorbide Mononitrate ER [Imdur] 60 mg PO DAILY Midodrine [ProAmatine] 5 mg PO DAILY PRN PRN Reason: low blood pressure Changed carvediloL [Coreg] 50 mg PO BID 30 Days #120 tab Discontinued Valsartan 160 mg PO DAILY Discharge Medication List Insulin Aspart (For Pump) [NovoLOG (For Pump)] 0.01 unit SQ-PUMP CONTINUOUS 02/21/23 [History] FLUoxetine HCL [PROzac] 10 mg PO DAILY 07/14/23 [History] Atorvastatin [Lipitor] 20 mg PO HS 11/14/23 [History] Folic Acid/Vit B Complex and C [Lilian-Marsha Tablet] 0.8 mg PO DAILY 11/14/23 [History] amLODIPine [Norvasc] 10 mg PO DAILY 11/14/23 [History] hydrALAZINE HCL [Apresoline] 100 mg PO TID 11/14/23 [History] Aspirin 81 mg PO DAILY 30 Days #30 tab 11/28/23 [Rx] Torsemide [Demadex] 100 mg PO DAILY 02/09/24 [History] Doxazosin [Cardura] 4 mg PO DAILY 05/06/24 [History] Isosorbide Mononitrate ER [Imdur] 60 mg PO DAILY 05/06/24 [History] Midodrine [ProAmatine] 5 mg PO DAILY PRN 05/06/24 [History] cloNIDine 0.1 MG/24HR PATCH [Catapres-TTS] 1 patch TRANSDERM WE 05/06/24 [History] metroNIDAZOLE [Flagyl] 500 mg PO TID #80 tab 05/31/24 [Rx] ALPRAZolam [Xanax] 0.5 mg PO HS PRN 7 Days #7 tab 06/01/24 [Rx] Calcium Acetate [PhosLo] 667 mg PO TID-W/MEALS 30 Days #90 tab 06/01/24 [Rx] Darbepoetin John [Aranesp] 40 mcg SQ Q7D each 06/01/24 [Rx] HYDROcodone/APAP 5-325MG [Sauquoit 5-325] 1 each PO Q4HR PRN #18 tab 06/01/24 [Rx] Melatonin 3 mg PO HS 30 Days #30 tab 06/01/24 [Rx] Pantoprazole [Protonix] 40 mg PO AC-BRKFST 30 Days #30 tab 06/01/24 [Rx] Sacubitril/Valsartan [Entresto 49 mg-51 mg Tablet] 1 each PO BID 30 Days #60 tab 06/01/24 [Rx] carvediloL [Coreg] 50 mg PO BID 30 Days #120 tab 06/01/24 [Rx] Follow up Appointment(s)/Referral(s): Devon Mattson MD [Primary Care Provider] - 06/03/24 11:00 am Juan Miguel Elliott DO [STAFF PHYSICIAN] - 1 Week (follow up with dialysis) Osiris Rodriguez MD [STAFF PHYSICIAN] - 1 Week (office not answering at time of discharge. Please call to schedule appointment ) Patient Instructions/Handouts: Chronic Wound Care (DC), Wound Healing and Your Diet (DC), Bacteremia (DC) Activity/Diet/Wound Care/Special Instructions: Activity: As tolerated. Take breaks as needed. Diet: Heart healthy and carb consistent diet. Avoid salts, or foods with hidden salts such as canned or boxed foods and frozen dinners. Extra salt makes your heart work harder and traps the fluid in your body for longer. Special Instructions: Take all of your medications as directed and remember to keep all of your doctor's appointments and follow-up as needed. You are being discharged home on IV antibiotics with dialysis 4 times a week along with oral antibiotic. You will need to continue to follow with wound care for Aquacel dressing change every 48 hours. Thank you for allowing us to participate in your care, it was truly a pleasure having you for our patient!!! . Discharge Disposition: HOME SELF-CARE
[2024-06-01] MEDS: carvediloL 12.5 MG TAB PO STA (10:03)
--- NOTE | 2024-06-01 11:42 | P.PN ---
Subjective Progress Note Date: 06/01/24 HISTORY OF PRESENTING ILLNESS 88-year-old male with past medical history of ESRD on hemodialysis, nonischemic cardiomyopathy systolic heart failure with a EF of 40%, moderate to severe pulmonary hypertension, hypertension, dyslipidemia, type [address] Buckner. This time presented to the hospital because of generalized weakness. He also has a nonhealing right heel wound. Pertinent cardiac testing Echo shows LVEF 30 to 35%, severely dilated LV cavity, severe pulmonary hypertension, severe mitral regurgitation, small pericardial effusion Cardiac cath from November 2023 shows relatively normal coronary arteries with nonobstructive mild CAD. 06/01/24 Patient is seen and examined. Yesterday he underwent ALYSIA that did not reveal any vegetation on the cardiac valves. Blood pressure has been elevated 152/79. Medications have been reviewed. PHYSICAL EXAMINATION left chest Temo catheter in place Lungs: Clear to auscultation. Heart: Regular pulses, S1, loud S2, systolic and diastolic murmur audible. Abdomen: Soft nontender, positive bowel sounds. Extremities: Chronic skin changes bilateral lower extremity, 1-2+ pitting edema. Neuro: Alert, oritented, no focal deficits. Detailed neuro exam was not performed. ASSESSMENT Strep group A and Proteus vulgaris septicemia Generalized weakness due to above Right heel nonhealing wound. ESRD on hemodialysis Chronic systolic heart failure, EF 30 to 35%. Last echo from November 2023 documented 40% EF. Nonischemic cardiomyopathy based of heart cath in November 2023. Valvular disease with severe mitral regurgitation. Diabetes Hypertension Dyslipidemia Moderate to severe pulm hypertension PLAN Continue Entresto 49/51 mg twice daily instead. Continue Imdur 60 mg, hydralazine 100 mg 3 times daily, amlodipine 10 mg daily Increase Coreg to 50 mg twice daily. Continue torsemide 100 mg daily Continue aspirin 81, Lipitor 20 Hemodialysis dependent for intravascular volume management. Supportive care as per primary team. Antibiotics as per infectious disease team Outpatient discussion about ICD/ Outpatient evaluation for PAD for chronic nonhealing wound of the right leg Patient is cleared for discharge from cardiology. Nurse practitioner note has been reviewed, I agree with documented findings and plan of care. Patient was seen and examined. Objective - Vital Signs Vital signs: Vital Signs Temp 98.0 F 06/01/24 07:02 Pulse 71 06/01/24 07:02 Resp 16 06/01/24 07:02 BP 152/79 06/01/24 07:02 Pulse Ox 99 06/01/24 07:02 FiO2 Intake & Output 05/31/24 06/01/24 06/01/24 18:59 06:59 18:59 Intake Total 525 Output Total 8500 Balance -7975 Intake: IV 25 Hemodialysis 500 Output: Hemodialysis 4500 Hemodialysis Net Amount 4000 Other: Voiding Method Toilet # Voids 0 1 - Labs CBC & Chem 7: 06/01/24 03:20 06/01/24 03:20 Labs: Abnormal Lab Results - Last 24 Hours (Table) 05/31/24 05/31/24 06/01/24 Range/Units 11:36 21:01 03:20 RBC 2.82 L (4.40-5.60) X 10*6/uL Hgb 8.0 L (13.0-17.0) g/dL Hct 26.7 L (39.6-50.0) % MCHC 30.0 L (32.0-37.0) g/dL RDW 18.4 H (11.5-14.5) % MPV 13.7 H (9.5-12.2) FL POC Glucose (mg/dL) 190 H 198 H (70-110) mg/dL 06/01/24 06/01/24 06/01/24 Range/Units 06:30 06:54 07:16 RBC (4.40-5.60) X 10*6/uL Hgb (13.0-17.0) g/dL Hct (39.6-50.0) % MCHC (32.0-37.0) g/dL RDW (11.5-14.5) % MPV (9.5-12.2) FL POC Glucose (mg/dL) 65 L 65 L 64 L (70-110) mg/dL Microbiology - Last 24 Hours (Table) 05/26/24 18:21 Blood Culture - Final Blood 05/26/24 12:07 Blood Culture - Final Blood 05/26/24 11:15 Anaerobic Culture - Final Heel - Right Bacteroides thetaiotaomicron Prevotella melaninogenica
[2024-06-01 11:54] LABS: Glucose,Whole Blood 100 mg/dL (70-110)
--- NOTE | 2024-06-01 12:55 | P.PN ---
Subjective patient is seen for follow-up for end-stage renal disease. Scheduled for hemodialysis in a.m. Sutures from left arm AV fistula site were removed yesterday. Objective - Vital Signs Vital signs: Vital Signs Temp 98.0 F 06/01/24 07:02 Pulse 71 06/01/24 07:02 Resp 16 06/01/24 07:02 BP 152/79 06/01/24 07:02 Pulse Ox 99 06/01/24 07:02 FiO2 Intake & Output 05/31/24 06/01/24 06/01/24 18:59 06:59 18:59 Intake Total 525 Output Total 8500 Balance -7975 Intake: IV 25 Hemodialysis 500 Output: Hemodialysis 4500 Hemodialysis Net Amount 4000 Other: Voiding Method Toilet # Voids 0 1 - Exam patient is awake, comfortable, no acute distress. Examination of the heart S1 and S2 Examination of the lungs bilateral breath sounds are heard Abdomen is soft nontender Examination of lower extremities shows 1+ edema RETAIL BUYER exam grossly intact - Labs CBC & Chem 7: 06/01/24 03:20 06/01/24 03:20 Labs: Abnormal Lab Results - Last 24 Hours (Table) 05/31/24 06/01/24 06/01/24 Range/Units 21:01 03:20 03:20 RBC 2.82 L (4.40-5.60) X 10*6/uL Hgb 8.0 L (13.0-17.0) g/dL Hct 26.7 L (39.6-50.0) % MCHC 30.0 L (32.0-37.0) g/dL RDW 18.4 H (11.5-14.5) % MPV 13.7 H (9.5-12.2) FL Anion Gap 12.50 H (4.00-12.00) mmol/L Creatinine 4.1 H (0.6-1.5) mg/dL Est GFR (CKD-EPI) 16 L (>=60) BUN/Creatinine Ratio 5.46 L (12.00-20.00) Ratio POC Glucose (mg/dL) 198 H (70-110) mg/dL Calcium 7.6 L (8.7-10.3) mg/dL Alkaline Phosphatase 257 H (41-126) U/L Albumin 2.8 L (3.8-4.9) g/dL Globulin 3.6 H (1.6-3.3) g/dL Albumin/Globulin Ratio 0.78 L (1.60-3.17) Ratio 06/01/24 06/01/24 06/01/24 Range/Units 06:30 06:54 07:16 RBC (4.40-5.60) X 10*6/uL Hgb (13.0-17.0) g/dL Hct (39.6-50.0) % MCHC (32.0-37.0) g/dL RDW (11.5-14.5) % MPV (9.5-12.2) FL Anion Gap (4.00-12.00) mmol/L Creatinine (0.6-1.5) mg/dL Est GFR (CKD-EPI) (>=60) BUN/Creatinine Ratio (12.00-20.00) Ratio POC Glucose (mg/dL) 65 L 65 L 64 L (70-110) mg/dL Calcium (8.7-10.3) mg/dL Alkaline Phosphatase (41-126) U/L Albumin (3.8-4.9) g/dL Globulin (1.6-3.3) g/dL Albumin/Globulin Ratio (1.60-3.17) Ratio Microbiology - Last 24 Hours (Table) 05/26/24 18:21 Blood Culture - Final Blood 05/26/24 12:07 Blood Culture - Final Blood 05/26/24 11:15 Anaerobic Culture - Final Heel - Right Bacteroides thetaiotaomicron Prevotella melaninogenica Assessment and Plan Assessment: 1. End-stage renal disease maintained on hemodialysis on Friday schedule via permacath. He has a maturing left upper extremity AV f istula. 2. Right foot wound. On antibiotics. 3. Strep bacteremia. Likely source heel ulcer is wound culture also positive for strep. 4. Hypertension with chronic kidney disease. Stable. 5. Diabetes mellitus. 6. Chronic kidney disease mineral bone disease. Phosphorus level 6.0 dated May 26, 2024. On PhosLo. 7. Anemia of chronic kidney disease. On Aranesp. 8. Hyponatremia secondary to chronic kidney disease. Hypervolemic. 9. Mild hyperkalemia secondary to chronic kidney disease and hyperglycemia. Also on Diovan. Improved. 10. Erythema noted at site of left upper extremity AV fistula. Maintained on IV antibiotics. sutures from AV fistula site were removed yesterday. Plan: continue with antibiotics. hemodialysis in a.m. as outpatient [place] antibiotics as per ID
--- NOTE | 2024-06-01 14:29 | P.PN ---
Subjective Progress Note Date: 06/01/24 Principal diagnosis: Reason for follow-up is right heel infected wound with bacteremia Patient is a 58-year-old male with a past medical history significant for diabetes mellitus insulin-dependent end-stage renal disease on hemodialysis also with a nonhealing wound to the right heel area presenting to the hospital with not feeling well patient was noticed to be septic with group a strep bacteremia concerning for the right heel infected wound. On today's evaluation that is 06/01/2024,the patient remains to be afebrile, patient is on room air not requiring supplemental oxygen and denies any shortness of breath no chest pain or cough.Patient denies having any nausea or vomiting, no abdominal pain and no diarrhea and denies pain to the right heel on left arm. No new lab has been obtained today blood culture remains to be negative Objective - Vital Signs Vital signs: Vital Signs Temp 98.0 F 06/01/24 07:02 Pulse 71 06/01/24 07:02 Resp 16 06/01/24 07:02 BP 152/79 06/01/24 07:02 Pulse Ox 99 06/01/24 07:02 FiO2 Intake & Output 05/31/24 06/01/24 06/01/24 18:59 06:59 18:59 Intake Total 525 Output Total 8500 Balance -7975 Intake: IV 25 Hemodialysis 500 Output: Hemodialysis 4500 Hemodialysis Net Amount 4000 Other: Voiding Method Toilet # Voids 0 1 - Exam GENERAL DESCRIPTION: Middle-age male lying in bed in no distress RESPIRATORY SYSTEM: Unlabored breathing , decreased breath sounds at bases HEART: S1 S2 regular rate and rhythm , ABDOMEN: Soft , no tenderness EXTREMITIES: Right heel wound is currently dressed, left upper arm graft site with minimal erythema no drainage - Labs CBC & Chem 7: 06/01/24 03:20 06/01/24 03:20 Labs: Abnormal Lab Results - Last 24 Hours (Table) 05/31/24 05/31/24 06/01/24 Range/Units 11:36 21:01 03:20 RBC 2.82 L (4.40-5.60) X 10*6/uL Hgb 8.0 L (13.0-17.0) g/dL Hct 26.7 L (39.6-50.0) % MCHC 30.0 L (32.0-37.0) g/dL RDW 18.4 H (11.5-14.5) % MPV 13.7 H (9.5-12.2) FL Anion Gap (4.00-12.00) mmol/L Creatinine (0.6-1.5) mg/dL Est GFR (CKD-EPI) (>=60) BUN/Creatinine Ratio (12.00-20.00) Ratio POC Glucose (mg/dL) 190 H 198 H (70-110) mg/dL Calcium (8.7-10.3) mg/dL Alkaline Phosphatase (41-126) U/L Albumin (3.8-4.9) g/dL Globulin (1.6-3.3) g/dL Albumin/Globulin Ratio (1.60-3.17) Ratio 06/01/24 06/01/24 06/01/24 Range/Units 03:20 06:30 06:54 RBC (4.40-5.60) X 10*6/uL Hgb (13.0-17.0) g/dL Hct (39.6-50.0) % MCHC (32.0-37.0) g/dL RDW (11.5-14.5) % MPV (9.5-12.2) FL Anion Gap 12.50 H (4.00-12.00) mmol/L Creatinine 4.1 H (0.6-1.5) mg/dL Est GFR (CKD-EPI) 16 L (>=60) BUN/Creatinine Ratio 5.46 L (12.00-20.00) Ratio POC Glucose (mg/dL) 65 L 65 L (70-110) mg/dL Calcium 7.6 L (8.7-10.3) mg/dL Alkaline Phosphatase 257 H (41-126) U/L Albumin 2.8 L (3.8-4.9) g/dL Globulin 3.6 H (1.6-3.3) g/dL Albumin/Globulin Ratio 0.78 L (1.60-3.17) Ratio 06/01/24 Range/Units 07:16 RBC (4.40-5.60) X 10*6/uL Hgb (13.0-17.0) g/dL Hct (39.6-50.0) % MCHC (32.0-37.0) g/dL RDW (11.5-14.5) % MPV (9.5-12.2) FL Anion Gap (4.00-12.00) mmol/L Creatinine (0.6-1.5) mg/dL Est GFR (CKD-EPI) (>=60) BUN/Creatinine Ratio (12.00-20.00) Ratio POC Glucose (mg/dL) 64 L (70-110) mg/dL Calcium (8.7-10.3) mg/dL Alkaline Phosphatase (41-126) U/L Albumin (3.8-4.9) g/dL Globulin (1.6-3.3) g/dL Albumin/Globulin Ratio (1.60-3.17) Ratio Microbiology - Last 24 Hours (Table) 05/26/24 18:21 Blood Culture - Final Blood 05/26/24 12:07 Blood Culture - Final Blood 05/26/24 11:15 Anaerobic Culture - Final Heel - Right Bacteroides thetaiotaomicron Prevotella melaninogenica Assessment and Plan (1) Streptococcal bacteremia Status: Acute Code(s): R78.81 - BACTEREMIA; B95.5 - UNSP STREPTOCOCCUS [facility] Code(s): 824741000118 (2) Diabetic ulcer of right foot Status: Acute Code(s): E11.621 - TYPE 2 DIABETES MELLITUS WITH FOOT ULCER; L97.519 - NON-PRS CHRONIC ULCER OTH PRT RIGHT FOOT W UNSP SEVERITY SNOMED Code(s): 687139084 (3) Sepsis Status: Acute Code(s): A41.9 - SEPSIS, UNSPECIFIED ORGANISM SNOMED Code(s): 20733710 Plan: 1patient presented to hospital with sepsis in this patient who did have fever elevated white count and now with streptococcal bacteremia source is likely right heel and diabetic foot ulcer with secondary cellulitis patient did have other possible sources however clinic suspicious low for permacatheter infection unless patient shows evidence of persistent bacteremia and this has been discussed in detail with the admitting as well as nephrology team 2-blood cultures has been repeated and so far negative local culture currently growing strep Proteus and bacteroids 3-patient to continue local wound care to the right heel with Aquacel dressing change q. 48-hour 4-patient did have abnormality seen on the mitral valve ALYSIA has been negative for any vegetation 5patient will be advised cefazolin with dialysis x 4-week as he did have a graft as well as a permacatheter along with oral Flagyl prescription has been sent to the pharmacy he will get a dose of cefazolin before discharge today discussed with SERVICE DELIVERY ANALYST for admitting team Dictation was produced using [employer] dictation software. please excuse any g rammatical, word or spelling errors. Time with Patient: Less than 30
[2024-06-01] MEDS ORDERED: carvediloL 12.5 MG TAB PO SCH (17:30)
== END 2024-06-01 14:23 | disposition home or self-care (01) | DRG 871 ==
LOC: EC 11:48 → 4SSUR 19:28
PROVIDERS: ADMIT Internal Medicine; ATTEND Internal Medicine
PROC: B24BZZ4 Ultrasonography of Heart with Aorta, Transesophageal (ICD-10-PCS; principal; 2024-05-31 13:15)
DX: A40.0 Sepsis due to streptococcus, group A (principal); N18.6 End stage renal disease; E87.1 Hypo-osmolality and hyponatremia; I13.2 Hypertensive heart and chronic kidney disease with heart failure and with stage 5 chronic kidney disease, or end stage renal disease; I50.22 Chronic systolic (congestive) heart failure; J98.11 Atelectasis; L03.115 Cellulitis of right lower limb; I42.8 Other cardiomyopathies; I31.39 Other pericardial effusion (noninflammatory); Z16.11 Resistance to penicillins; L97.418 Non-pressure chronic ulcer of right heel and midfoot with other specified severity; I27.20 Pulmonary hypertension, unspecified; D63.1 Anemia in chronic kidney disease; E87.5 Hyperkalemia; Z99.2 Dependence on renal dialysis; E11.22 Type 2 diabetes mellitus with diabetic chronic kidney disease; E78.5 Hyperlipidemia, unspecified; E11.65 Type 2 diabetes mellitus with hyperglycemia; M89.8X9 Other specified disorders of bone, unspecified site; E11.621 Type 2 diabetes mellitus with foot ulcer; E11.40 Type 2 diabetes mellitus with diabetic neuropathy, unspecified; L97.519 Non-pressure chronic ulcer of other part of right foot with unspecified severity; I25.10 Atherosclerotic heart disease of native coronary artery without angina pectoris; E11.628 Type 2 diabetes mellitus with other skin complications; R79.1 Abnormal coagulation profile; E87.8 Other disorders of electrolyte and fluid balance, not elsewhere classified; I08.8 Other rheumatic multiple valve diseases; M16.0 Bilateral primary osteoarthritis of hip; Z96.41 Presence of insulin pump (external) (internal); Z79.4 Long term (current) use of insulin; Z87.891 Personal history of nicotine dependence; Z79.82 Long term (current) use of aspirin; Z79.899 Other long term (current) drug therapy; Z91.041 Radiographic dye allergy status; Z82.5 Family history of asthma and other chronic lower respiratory diseases
CPT/HCPCS: 36415; 70450; 71046; 80048; 80053; 81001; 82009; 83605; 83735; 84100; 85025; 85027; 85610; 85652; 85730; 86140; 87040; 87070; 87075; 87077; 87186; 87205; 87636; 90935; 93005; 93308; 93312; 93320; 93325; 96361; 96365; 96366; 96375; 99285

== ENCOUNTER 2024-07-22 17:03 | Observation (INO) | payer BC, OTHER ==
--- NOTE | 2024-07-22 18:35 | ED ---
General Adult HPI - General Chief complaint: Fall Stated complaint: FALL Time Seen by Provider: 07/22/24 17:41 Source: patient Mode of arrival: ambulatory Limitations: no limitations - History of Present Illness Initial comments: Dictation was produced using [employer] dictation software. please excuse any grammatical, word or spelling errors. Chief Complaint: 58-year-old male presents emergency department weakness and fall History of Present Illness: Patient is a 58-year-old male he has history of ESRD, renal disease, hypertension and diabetes. States that today he has been feeling weak. States that over the last several months he has been having significant decline in his functional capacity. States that today he was trying to get into his truck however he had fallen. Denies any head trauma. He does not take anticoagulation medications. He was so weak that he was unable to get up get back into his truck. Patient complaining of left foot pain, right knee and right ankle pain, coccyx pain and lower back pain. Patient was able to corin d without assistance. He lives at home with his . states that she is concerned because of how weak he is. He do not have much for help at home. The ROS documented in this emergency department record has been reviewed and confirmed by me. Those systems with pertinent positive or negative responses have been documented in the HPI. All other systems are other negative and/or noncontributory. - Related Data Home Medications Medication Instructions Recorded Confirmed Insulin Aspart (For Pump) [NovoLOG 0.01 unit SQ-PUMP CONTINUOUS 02/21/23 05/25/24 (For Pump)] FLUoxetine HCL [PROzac] 10 mg PO DAILY 07/14/23 05/25/24 Atorvastatin [Lipitor] 20 mg PO HS 11/14/23 05/25/24 Folic Acid/Vit B Complex and C 0.8 mg PO DAILY 11/14/23 05/25/24 [Lilian-Marsha Tablet] amLODIPine [Norvasc] 10 mg PO DAILY 11/14/23 05/25/24 hydrALAZINE HCL [Apresoline] 100 mg PO TID 11/14/23 05/25/24 Torsemide [Demadex] 100 mg PO DAILY 02/09/24 05/25/24 Doxazosin [Cardura] 4 mg PO DAILY 05/06/24 05/25/24 Isosorbide Mononitrate ER [Imdur] 60 mg PO DAILY 05/06/24 05/25/24 Midodrine [ProAmatine] 5 mg PO DAILY PRN 05/06/24 05/25/24 cloNIDine 0.1 MG/24HR PATCH 1 patch TRANSDERM WE 05/06/24 05/25/24 [Catapres-TTS] Previous Rx's Medication Instructions Recorded Aspirin 81 mg PO DAILY 30 Days #30 tab 11/28/23 metroNIDAZOLE [Flagyl] 500 mg PO TID #80 tab 05/31/24 ALPRAZolam [Xanax] 0.5 mg PO HS PRN 7 Days #7 tab 06/01/24 Calcium Acetate [PhosLo] 667 mg PO TID-W/MEALS 30 Days #90 06/01/24 tab Darbepoetin John [Aranesp] 40 mcg SQ Q7D each 06/01/24 HYDROcodone/APAP 5-325MG [[place] 1 each PO Q4HR PRN #18 tab 06/01/24 5-325] Melatonin 3 mg PO HS 30 Days #30 tab 06/01/24 Pantoprazole [Protonix] 40 mg PO AC-BRKFST 30 Days #30 tab 06/01/24 Sacubitril/Valsartan [Entresto 49 1 each PO BID 30 Days #60 tab 06/01/24 mg-51 mg Tablet] carvediloL [Coreg] 50 mg PO BID 30 Days #120 tab 06/01/24 Allergies Allergy/AdvReac Type Severity Reaction Status Date / Time Iodinated Contrast Media Allergy Anaphylaxis Verified 07/22/24 17:38 Review of Systems ROS Statement: Those systems with pertinent positive or pertinent negative responses have been documented in the HPI. ROS Other: All systems not noted in ROS Statement are negative. Past Medical History Past Medical History: Diabetes Mellitus, Dialysis, Renal Disease, Hypertension, Renal Disease Additional Past Medical History / Comment(s): IDDM type I on insulin pump, DKA, chronic kidney disease, bilateral lower extremity edema. HD on MWF History of Any Multi-Drug Resistant Organisms: None Reported Past Surgical History: No Surgical Hx Reported Additional Past Surgical History / Comment(s): R knee arthroscopy, circumcism, HD cath in chest Past Anesthesia/Blood Transfusion Reactions: No Reported Reaction Past Psychological History: No Psychological Hx Reported Smoking Status: Former smoker Past Alcohol Use History: None Reported Past Drug Use History: None Reported - Past Family History Mother History Unknown: Yes Family Medical History: COPD Father Family Medical History: No Reported History Additional Family Medical History / Comment(s): Mother is healthy. General Exam - General Exam Comments Initial Comments: PHYSICAL EXAM: General Impression: Alert and oriented x3, not in acute distress, cachectic HEENT: Normocephalic atraumatic, extra-ocular movements intact, pupils equal and reactive to light bilaterally, mucous membranes moist. Cardiovascular: Heart regular rate and rhythm Chest: Able to complete full sentences, no retractions, no tachypnea Abdomen: abdomen soft, non-tender, non-distended, no organomegaly Musculoskeletal: Pulses present and equal in all extremities, no peripheral edema Motor: no focal deficits noted Neurological: CN II-XII grossly intact, no focal motor or sensory deficits noted Skin: Intact with no visualized rashes Psych: Normal affect and mood Limitations: no limitations Course Vital Signs 07/22/24 17:34 Temperature 97.9 F Pulse Rate 67 Respiratory 18 Rate Blood Pressure 180/79 O2 Sat by Pulse 96 Oximetry Medical Decision Making - Medical Decision Making Was pt. sent in by a medical professional or institution (, PA, WIRE HARNESS ASSEMBLER, urgent care, hospital, or [facility]...) When possible be specific @ -No Did you speak to anyone other than the patient for history (EMS, parent, family, police, friend...)? What history was obtained from this source @ -Some history obtained from as described above Did you review nursing and triage notes (agree or disagree)? Why? @ -I reviewed and agree with nursing and triage notes Were old charts reviewed (outside hosp., previous admission, EMS record, old EKG, old radiological studies, urgent care reports/EKG's, [facility] records)? Report findings @ -No old charts were reviewed Differential Diagnosis (chest pain, altered mental status, abdominal pain women, abdominal pain men, vaginal bleeding, musculoskeletal, weakness, fever, dyspnea, syncope, headache, dizziness, GI bleed, back pain, seizure, CVA, palpatations, mental health)? @ -Differential Weakness: Hypoglycemia, shock, sepsis, hyponatremia, anemia, infection, DE, ETOH, adverse medicine reaction, overdose, stroke, this is not meant to be an all-inclusive list. EKG interpreted by me (3pts min.). @ -See above X-rays interpreted by me (1pt min.). @ -X-ray, pelvis x-ray shows no acute processes but x-ray shows cortical irregularity toe. CT interpreted by me (1pt min.). @ -CT scan of the head and C-spine shows U/S interpreted by me (1pt. min.). @ -None done What testing was considered but not performed or refused? (CT, X-rays, U/S, labs)? Why? @ -None What meds were considered but not given or refused? Why? @ -None Was smoking cessation discussed for >3mins.? @ -No Were there social determinants of health that impacted care today? How? (Homelessness, low income, unemployed, alcoholism, drug addiction, tr ansportation, low edu. Level, literacy, decrease access to med. care, senior living, rehab)? @ -No Was there de-escalation of care discussed even if they declined (Discuss DNR or withdrawal of care, Hospice)? DNR status @ -No What co-morbidities impacted this encounter? (DM, HTN, Smoking, COPD, CAD, Cancer, CVA, ARF, Chemo, Hep., AIDS, mental health diagnosis, sleep apnea, morbid obesity)? @ -Diabetes, renal disease Was patient admitted / discharged? Hospital course, mention meds given and route, prescriptions, significant lab abnormalities, going to OR and other pertinent info. @ -58-year-old male presents emergency department worsening weakness. Patient states that he has been having significant decline over the past couple months. Today his symptoms were significantly apparent when he was unable to get up after falling next to his truck. Vital signs upon arrival are within acceptable limits. Patient cachectic at the bedside. Laboratory evaluation obtained. Glucose is elevated at 603 he is insulin-dependent diabetic. States that his insulin pump needed to be refilled. He has a troponin elevation 0.097 likely secondary to renal dysfunction. No acetone however patient is hyperglycemic acidotic raising question of possible diabetic ketoacidosis. Imaging studies are negative except for foot x-ray that shows left fth toe fracture. Due to patient's debility and uncontrolled diabetes with acidosis she will be admitted. At this point no indication for DKA order set. At this point we will just provide patient with fluids and insulin pushes. Did you discuss the management of the patient with other professionals (professionals i.e. , PA, WIRE HARNESS ASSEMBLER, lab, RT, psych nurse, social media designer, primary special education teacher, teacher, air force senior officer, case packer and sealer)? Give summary @ -Case discussed with hospitalist for admission Was critical care preformed (if so, how long)? @ -No Undiagnosed new problem with uncertain prognosis? @ -No Drug Therapy requiring intensive monitoring for toxicity (Heparin, Nitro, Insulin, Cardizem)? @ -No Were any procedures done? @ -No Diagnosis/symptom? Acute, or Chronic, or Acute on Chronic? Uncomplicated (without systemic symptoms) or Complicated (systemic symptoms)? @ -Generalized weakness, hyperglycemia with acidosis Side effects of treatment? @ -No Exacerbation, Progression, or Severe Exacerbation? @ -No Poses a threat to life or bodily function? How? (Chest pain, [place], DE, pneumonia, PE, COPD, DKA, ARF, appy, cholecystitis, CVA, Diverticulitis, Homicidal, Suicidal, threat to staff... and all critical care pts) @ -yes - Lab Data Result diagrams: 07/22/24 18:40 07/22/24 18:40 Lab Results 07/22/24 07/22/24 07/22/24 Range/Units 18:40 18:40 18:40 WBC 5.1 (3.8-10.6) k/uL RBC 3.08 L (4.30-5.90) m/uL Hgb 9.0 L (13.0-17.5) gm/dL Hct 30.2 L (39.0-53.0) % MCV 98.2 (80.0-100.0) fL MCH 29.2 (25.0-35.0) pg MCHC 29.7 L (31.0-37.0) g/dL RDW 19.9 H (11.5-15.5) % Plt Count 139 L (150-450) k/uL MPV 7.8 Neutrophils % 78 % Lymphocytes % 8 % Monocytes % 6 % Eosinophils % 5 % Basophils % 0 % Neutrophils # 4.0 (1.3-7.7) k/uL Lymphocytes # 0.4 L (1.0-4.8) k/uL Monocytes # 0.3 (0-1.0) k/uL Eosinophils # 0.3 (0-0.7) k/uL Basophils # 0.0 (0-0.2) k/uL Hypochromasia Marked Anisocytosis Slight Macrocytosis Slight PT 14.9 H (10.0-12.5) sec INR 1.4 H (<1.2) APTT 29.4 (22.0-30.0) sec Sodium 128 L (137-145) mmol/L Potassium 4.9 (3.5-5.1) mmol/L Chloride 91 L (98-107) mmol/L Carbon Dioxide 18 L (22-30) mmol/L Anion Gap 19 mmol/L BUN 50 H (9-20) mg/dL Creatinine 5.62 H (0.66-1.25) mg/dL Est GFR (CKD-EPI)AfAm 12 (>60 ml/min/1.73 sqM) Est GFR (CKD-EPI)NonAf 10 (>60 ml/min/1.73 sqM) Glucose 603 H* (74-99) mg/dL POC Glucose (mg/dL) (70-110) mg/dL POC Glu Car Inspector ID Plasma Lactic Acid Howard (0.7-2.0) mmol/L Calcium 8.0 L (8.4-10.2) mg/dL Total Bilirubin 1.2 (0.2-1.3) mg/dL AST 120 H (17-59) U/L ALT 139 H (4-49) U/L Alkaline Phosphatase 393 H (38-126) U/L Troponin I (0.000-0.034) ng/mL Total Protein 7.5 (6.3-8.2) g/dL Albumin 3.2 L (3.5-5.0) g/dL Serum Alcohol <10 mg/dL Acetone, Qual (Negative) Blood Type Blood Type Recheck Bld Type Recheck Status Antibody Screen Spec Expiration Date 07/22/24 07/22/24 07/22/24 Range/Units 18:40 18:40 18:40 WBC (3.8-10.6) k/uL RBC (4.30-5.90) m/uL Hgb (13.0-17.5) gm/dL Hct (39.0-53.0) % MCV (80.0-100.0) fL MCH (25.0-35.0) pg MCHC (31.0-37.0) g/dL RDW (11.5-15.5) % Plt Count (150-450) k/uL MPV Neutrophils % % Lymphocytes % % Monocytes % % Eosinophils % % Basophils % % Neutrophils # (1.3-7.7) k/uL Lymphocytes # (1.0-4.8) k/uL Monocytes # (0-1.0) k/uL Eosinophils # (0-0.7) k/uL Basophils # (0-0.2) k/uL Hypochromasia Anisocytosis Macrocytosis PT (10.0-12.5) sec INR (<1.2) APTT (22.0-30.0) sec Sodium (137-145) mmol/L Potassium (3.5-5.1) mmol/L Chloride (98-107) mmol/L Carbon Dioxide (22-30) mmol/L Anion Gap mmol/L BUN (9-20) mg/dL Creatinine (0.66-1.25) mg/dL Est GFR (CKD-EPI)AfAm (>60 ml/min/1.73 sqM) Est GFR (CKD-EPI)NonAf (>60 ml/min/1.73 sqM) Glucose (74-99) mg/dL POC Glucose (mg/dL) (70-110) mg/dL POC Glu Car Inspector ID Plasma Lactic Acid Howard 1.3 (0.7-2.0) mmol/L Calcium (8.4-10.2) mg/dL Total Bilirubin (0.2-1.3) mg/dL AST (17-59) U/L ALT (4-49) U/L Alkaline Phosphatase (38-126) U/L Troponin I 0.097 H* (0.000-0.034) ng/mL Total Protein (6.3-8.2) g/dL Albumin (3.5-5.0) g/dL Serum Alcohol mg/dL Acetone, Qual (Negative) Blood Type A Negative Blood Type Recheck A Neg Bld Type Recheck Status No Antibody Screen NEGATIVE Spec Expiration Date 07/25/2024 - 233907/22/24 07/22/24 Range/Units 18:40 19:58 WBC (3.8-10.6) k/uL RBC (4.30-5.90) m/uL Hgb (13.0-17.5) gm/dL Hct (39.0-53.0) % MCV (80.0-100.0) fL MCH (25.0-35.0) pg MCHC (31.0-37.0) g/dL RDW (11.5-15.5) % Plt Count (150-450) k/uL MPV Neutrophils % % Lymphocytes % % Monocytes % % Eosinophils % % Basophils % % Neutrophils # (1.3-7.7) k/uL Lymphocytes # (1.0-4.8) k/uL Monocytes # (0-1.0) k/uL Eosinophils # (0-0.7) k/uL Basophils # (0-0.2) k/uL Hypochromasia Anisocytosis Macrocytosis PT (10.0-12.5) sec INR (<1.2) APTT (22.0-30.0) sec Sodium (137-145) mmol/L Potassium (3.5-5.1) mmol/L Chloride (98-107) mmol/L Carbon Dioxide (22-30) mmol/L Anion Gap mmol/L BUN (9-20) mg/dL Creatinine (0.66-1.25) mg/dL Est GFR (CKD-EPI)AfAm (>60 ml/min/1.73 sqM) Est GFR (CKD-EPI)NonAf (>60 ml/min/1.73 sqM) Glucose (74-99) mg/dL POC Glucose (mg/dL) 562 H* (70-110) mg/dL POC Glu Car Inspector ID Barry Alejandra Plasma Lactic Acid Howard (0.7-2.0) mmol/L Calcium (8.4-10.2) mg/dL Total Bilirubin (0.2-1.3) mg/dL AST (17-59) U/L ALT (4-49) U/L Alkaline Phosphatase (38-126) U/L Troponin I (0.000-0.034) ng/mL Total Protein (6.3-8.2) g/dL Albumin (3.5-5.0) g/dL Serum Alcohol mg/dL Acetone, Qual Negative (Negative) Blood Type Blood Type Recheck Bld Type Recheck Status Antibody Screen Spec Expiration Date Disposition Clinical Impression: Weakness Disposition: ADMITTED IP TO THIS HOSP Condition: Fair Referrals: Devon Mattson MD [Primary Care Provider] - 1-2 days Decision Time: 21:00
[2024-07-22 19:00] LABS: Anisocytosis Slight; Basophils % (A) 0 %; Eosinophils # (A) 0.3 k/uL (0-0.7); Eosinophils % (A) 5 %; HCT 30.2 % (39.0-53.0); Hypochromasia Marked; Lymphocytes # (A) 0.4 k/uL (1.0-4.8); Lymphocytes % (A) 8 %; MCH 29.2 pg (25.0-35.0); MCHC 29.7 g/dL (31.0-37.0); MCV 98.2 fL (80.0-100.0); Macrocytosis Slight; Mean Platelet Volume 7.8; Monocytes # (A) 0.3 k/uL (0-1.0); Monocytes % (A) 6 %; Neutrophils % (A) 78 %; Platelet Count 139 k/uL (150-450); RBC 3.08 m/uL (4.30-5.90); RDW 19.9 % (11.5-15.5); WBC 5.1 k/uL (3.8-10.6)
[2024-07-22 19:05] LABS: INR 1.4 (<1.2); Partial Thromboplastin Time 29.4 sec (22.0-30.0); Prothrombin Time 14.9 sec (10.0-12.5)
--- NOTE | 2024-07-22 19:25 | XR ---
EXAMINATION TYPE: XR chest 1V portable DATE OF EXAM: 07/22/2024 7:02 PM COMPARISON: Chest radiographs from 05/25/2024. CLINICAL INDICATION: Male, 58 years old with history of trauma; pain TECHNIQUE: XR chest 1V portable Frontal view of the chest. FINDINGS: Lungs/Pleura: There is no evidence of pleural effusion, focal consolidation, or pneumothorax. Pulmonary vascularity: Unremarkable. Heart/mediastinum: Cardiomediastinal silhouette is enlarged. Musculoskeletal: No acute osseous pathology. Stable appearance of the right humeral head fracture manuel e sclerotic focus. Other findings: None Lines/Tubes: Left central venous catheter with distal tip at the cavoatrial junction. IMPRESSION: 1. No acute cardiopulmonary disease/process. 2. Cardiomegaly. [facility], , 07/22/2024 7:22 PM
--- NOTE | 2024-07-22 19:26 | XR ---
EXAMINATION TYPE: XR pelvis AP view DATE OF EXAM: 07/22/2024 7:07 PM COMPARISON: None CLINICAL INDICATION: Male, 58 years old with history of Trauma; pain [facility] TECHNIQUE: XR pelvis AP view, examined in a single projection. FINDINGS: There is no evidence of fracture or dislocation. There is no soft tissue abnormality. No a bnormal calcifications are present. The spine appears intact. The hips appear intact. No significant degeneration. Atherosclerosis of the vasculature. Calcification the vas deferens bilaterally. IMPRESSION: No acute osseous pathology. [facility], , 07/22/2024 7:23 PM
--- NOTE | 2024-07-22 19:33 | XR ---
EXAMINATION TYPE: XR foot complete LT DATE OF EXAM: 07/22/2024 7:09 PM COMPARISON: None CLINICAL INDICATION: Male, 58 years old with history of trauma, pain TECHNIQUE: XR foot complete LT examined in the AP, oblique, and lateral projections. FINDINGS/IMPRESSION: 1. Cortical irregularity involving the proximal phalanx of the fifth digit correlate with pain for f racture. No other fractures visualized. 2. Multifocal degeneration changes throughout the joints of the foot with joint space and osteophyte formation. 3. Severe atherosclerosis of the arterial vasculature. [facility], , 07/22/2024 7:31 PM
[2024-07-22 19:37] LABS: ALT 139 U/L (4-49); AST 120 U/L (17-59); African American GFR (CKD) 12 (>60 ml/min/1.73 sqM); Albumin 3.2 g/dL (3.5-5.0); Alcohol <10 mg/dL; Alkaline Phosphatase 393 U/L (38-126); Anion Gap 19 mmol/L; Blood Urea Nitrogen 50 mg/dL (9-20); Carbon Dioxide 18 mmol/L (22-30); Chloride 91 mmol/L (98-107); Non-African American GFR(CKD) 10 (>60 ml/min/1.73 sqM); Potassium 4.9 mmol/L (3.5-5.1); Sodium 128 mmol/L (137-145); Total Bilirubin 1.2 mg/dL (0.2-1.3); Total Protein 7.5 g/dL (6.3-8.2)
[2024-07-22 19:49] LABS: Glucose 603 mg/dL (74-99)
--- NOTE | 2024-07-22 19:58 | CT ---
EXAMINATION TYPE: CT brain cspine wo con DATE OF EXAM: 07/22/2024 7:35 PM COMPARISON: None. CLINICAL INDICATION: Male, 58 years old with history of trauma; Fell 4x today. No LOC. Weakness. TECHNIQUE: Brain: Multiple axial CT images of the brain were obtained without IV contrast. Cspine: Axial CT images from the skull base to the inferior aspect of T2 we obtained without intraven ous contrast. Coronal and sagittal reformatted images were also reviewed. . CT DLP: 2289 mGycm, Automated exposure control for dose reduction was used. FINDINGS: Brain: Extra-axial spaces: No abnormal extra-axial fluid collections. Ventricular system: Within normal limits Cerebral parenchyma: No acute intraparenchymal hemorrhage or mass effect. The carbajal-white junction is well differentiated. Cerebellum: Unremarkable. Mass effect: No evidence of midline shift. Intracranial vasculature: unremarkable Soft tissues: Normal. Calvarium/osseous structures: No depressed skull fracture. Paranasal sinuses and mastoid air cells: , Mild paranasal sinus mucosal thickening. Few opacified rig ht and left mastoid air cells. Visualized orbits: Orbital contents are intact. Cervical spine: Fracture: None. Osseous structures: Multilevel degenerative disc disease changes with endplate spurring and disc oste ophyte complex's. Vertebral alignment: Within normal limits. Spinal canal/Neural Foramina: Disc osteophyte complexes at C5-C6 and C6-C7. With at least mild spinal canal stenosis. No evidence for significant neural foraminal stenosis. Neck soft tissues: Prevertebral soft tissues are within normal limits. Other: The airway is patent. The lung apices are clear. IMPRESSION: 1. No acute intracranial process 2. No evidence of cervical spine fracture. 3. Mild multilevel degenerative disc disease. [facility], , 07/22/2024 7:56 PM
[2024-07-22 20:00] LABS: Glucose,Whole Blood 562 mg/dL (70-110)
--- NOTE | 2024-07-22 20:05 | CT ---
EXAMINATION TYPE: CT ChestAbdPelvis wo con DATE OF EXAM: 07/22/2024 7:39 PM COMPARISON: 04/09/2024 CLINICAL INDICATION: Male, 58 years old with history of fall; [facility], Fell 4x today. No LOC. Weakness. P ain Technique: CT ChestAbdPelvis wo con; Multiple axial images were obtained. Two-dimensional coronal and sagittal reconstructions were obtained. Contrast used: mL of , (None if empty) Oral contrast used: without Oral Contrast CT DLP: mGycm, Automated exposure control for dose reduction was used. Findings: CHEST: LUNGS/ PLEURA: No focal consolidation, pneumothorax or pleural effusion. Mild paraseptal emphysema ch anges. AIRWAY: Patent and unremarkable. HEART: Cardiomegaly is demonstrated.Atherosclerosis of the arterial vasculature. MEDIASTINUM: No gross evidence of adenopathy. VASCULATURE: No aortic aneurysm. Of central venous catheter with tip terminating in the right atrium . MUSCULOSKELETAL: No acute osseous abnormalities. SOFT TISSUES/LYMPH NODES: Unremarkable. LOWER NECK: No significant findings. ABDOMEN: ABDOMEN LIVER: Unremarkable GALLBLADDER AND BILE DUCTS: Unremarkable. PANCREAS: Unremarkable. SPLEEN: Unremarkable. ADRENAL GLANDS: Unremarkable. KIDNEYS AND URETERS: No evidence of hydronephrosis or renal calculus. The ureters are unremarkable. Calcifications surrounding the left kidney possibly related to cortical calcinosis. PELVIS BLADDER: Unremarkable REPRODUCTIVE: Consultations of the vas deferens bilaterally. ABDOMEN & PELVIS STOMACH AND BOWEL: No evidence of bowel obstruction. PERITONEUM/RETROPERITONEUM: No evidence of pneumoperitoneum. Trace free fluid throughout the abdomen. VASCULATURE: Severe atherosclerotic calcifications are present throughout the abdominal aorta and its branches. No evidence of aortic aneurysm. MUSCULOSKELETAL: No acute osseous abnormalities. Moderate disc degeneration changes are present throu ghout the thoracolumbar spine. The sacrum and coccyx appear within normal limits. LYMPH NODES: No gross evidence for lymphadenopathy. SOFT TISSUE/ABDOMINAL WALL: Anasarca of the soft tissues. 1. IMPRESSION: 2. No evidence for acute traumatic process. 3. Severe atherosclerosis of the arterial vasculature. 4. Cardiomegaly. 5. Left central venous catheter with tip terminating in the right atrium. 6. Moderate atherosclerosis of the arterial vasculature. 7. Trace ascites and anasarca. [facility], , 07/22/2024 8:03 PM
[2024-07-22] MEDS: MORPHINE SULFATE 4 MG/ML SYRINGE IV STA (20:08)
[2024-07-22] MEDS: SODIUM CHLORIDE 0.9% 1,000 ML IV STA (20:10)
[2024-07-22] MEDS: INSULIN REGULAR 100 UNIT/ML VIAL (IV) IV ONE (20:47)
[2024-07-22 21:40] LABS: Glucose,Whole Blood 495 mg/dL (70-110)
[2024-07-22 22:46] LABS: Glucose,Whole Blood 429 mg/dL (70-110)
[2024-07-22] MEDS ORDERED: NALOXONE 0.4 MG/ML 1 ML VIAL IV PRN (23:02)
[2024-07-23 01:39] LABS: Glucose,Whole Blood 351 mg/dL (70-110)
[2024-07-23] MEDS: MORPHINE SULFATE 2 MG/ML SYRINGE IVP PRN (01:45)
[2024-07-23] MEDS: SODIUM CHLORIDE 0.9% 1,000 ML IV SCH (01:57)
--- NOTE | 2024-07-23 03:28 | P.HPIM ---
History of Present Illness H&P Date: 07/22/24 Patient is a 58-year-old male with a PMH of type II DM, ESRD on hemodialysis MWF, hypertension, hyperlipidemia, who presents to the emergency room with complaints of multiple falls and generalized weakness. The patient reports that he missed his dialysis this past Friday because he overslept and has not been feeling progressively weaker over the past several days. He was able to get the dialysis session earlier today. Notes that he was trying to get into his truck earlier today when his legs gave out and he fell multiple times onto his tailbone. He does report some pain at his left fifth toe. He denied experiencing chest discomfort, shortness of breath, focal weakness, numbness, or tingling. Also denied abdominal pain, nausea, vomiting. In the emergency room, a chest/abdomen/pelvis CT revealed cardiomegaly with no other acute abnormalities. Head/cervical spine CT was unremarkable. Foot x-ray revealed left foot fifth toe fracture with no other acute abnormalities. Pelvis x-ray was unremarkable. Chest x-ray also unremarkable. Laboratory evaluation revealed a glucose of 603, troponin 0.097, anion gap 19, BUN 50, creatinine 5.62, hemoglobin 9.0, platelet count 139, sodium 128, and chloride 91. ED documentation reviewed and case discussed with ED provider. Review of systems: Pertinent positives and negatives as discussed in HPI, a complete review of systems was performed and all other systems are negative. Physical examination: Vital signs reviewed General: Somewhat ill-appearing, no distress, appears older than stated age Derm: no unusual rashes/lesions, warm Head: atraumatic, normocephalic, symmetric Eyes: EOMI, no lid lag, anicteric sclera, pupils equal round reactive to light ENT: Nose and ears atraumatic Neck: No cervical lymphadenopathy, trachea midline, supple Mouth: no lip lesion, mucus membranes dry Cardiovascular: S1S2 reg, no murmur, positive dorsalis pedis pulse bilateral, no edema Lungs: CTA bilateral, no rhonchi, no rales, no accessory muscle use Abdominal: soft, nontender to palpation, no guarding Ext: muscle strength 4 out of 5 in all 4 extremities grossly, no gross muscle atrophy, no contractures, Neuro: CN II-XI grossly intact, no gross focal neuro deficits Psych: Alert, oriented, appropriate affect Assessment: High anion gap metabolic acidosis, likely secondary to starvation ketosis Hyponatremia, hypochloremia, likely due to poor oral intake Elevated troponin, similar to baseline Normocytic anemia, at baseline Thrombocytopenia ESRD on hemodialysis Debility and multiple falls with left fifth toe fracture Imaging: In the emergency room, a chest/abdomen/pelvis CT revealed cardiomegaly with no other acute abnormalities. Head/cervical spine CT was unremarkable. Foot x-ray revealed left foot fifth toe fracture with no other acute abnormalities. Pelvis x-ray was unremarkable. Chest x-ray also unremarkable. Data Review: Laboratory evaluation revealed a glucose of 603, troponin 0.097, anion gap 19, BUN 50, creatinine 5.62, hemoglobin 9.0, platelet count 139, sodium 128, and chloride 91. Plan: Hold off on further IV fluids Insulin sliding scale and blood glucose monitoring Nephrology consulted for resumption of hemodialysis Blood glucose monitoring every hour Monitor BMP and CBC PT consult Resume home meds once reconciled Fall precautions DVT prophylaxis: Heparin subcu The patient is admitted with an anticipated fewer than 2 midnight stay for evaluation of debility CODE STATUS: Full Code Discussed with: Patient Anticipated discharge place: Home Past Medical History Past Medical History: Diabetes Mellitus, Dialysis, Renal Disease, Hypertension, Renal Disease Additional Past Medical History / Comment(s): IDDM type I on insulin pump, DKA, chronic kidney disease, bilateral lower extremity edema. HD on MWF History of Any Multi-Drug Resistant Organisms: None Reported Past Surgical History: No Surgical Hx Reported Additional Past Surgical History / Comment(s): R knee arthroscopy, circumcism, HD cath in chest Past Anesthesia/Blood Transfusion Reactions: No Reported Reaction Past Psychological History: No Psychological Hx Reported Smoking Status: Former smoker Past Alcohol Use History: None Reported Past Drug Use History: None Reported - Past Family History Mother History Unknown: Yes Family Medical History: COPD Father Family Medical History: No Reported History Additional Family Medical History / Comment(s): Mother is healthy. Medications and Allergies Home Medications Medication Instructions Recorded Confirmed Type Insulin Aspart (For Pump) [NovoLOG 0.01 unit SQ-PUMP CONTINUOUS 02/21/23 05/25/24 History (For Pump)] FLUoxetine HCL [PROzac] 10 mg PO DAILY 07/14/23 05/25/24 History Atorvastatin [Lipitor] 20 mg PO HS 11/14/23 05/25/24 History Folic Acid/Vit B Complex and C 0.8 mg PO DAILY 11/14/23 05/25/24 History [Lilian-Marsha Tablet] amLODIPine [Norvasc] 10 mg PO DAILY 11/14/23 05/25/24 History hydrALAZINE HCL [Apresoline] 100 mg PO TID 11/14/23 05/25/24 History Aspirin 81 mg PO DAILY 30 Days #30 tab 11/28/23 05/25/24 Rx Torsemide [Demadex] 100 mg PO DAILY 02/09/24 05/25/24 History Doxazosin [Cardura] 4 mg PO DAILY 05/06/24 05/25/24 History Isosorbide Mononitrate ER [Imdur] 60 mg PO DAILY 05/06/24 05/25/24 History Midodrine [ProAmatine] 5 mg PO DAILY PRN 05/06/24 05/25/24 History cloNIDine 0.1 MG/24HR PATCH 1 patch TRANSDERM WE 05/06/24 05/25/24 History [Catapres-TTS] metroNIDAZOLE [Flagyl] 500 mg PO TID #80 tab 05/31/24 Rx ALPRAZolam [Xanax] 0.5 mg PO HS PRN 7 Days #7 tab 06/01/24 Rx Calcium Acetate [PhosLo] 667 mg PO TID-W/MEALS 30 Days #90 06/01/24 Rx tab Darbepoetin John [Aranesp] 40 mcg SQ Q7D each 06/01/24 Rx HYDROcodone/APAP 5-325MG [[place] 1 each PO Q4HR PRN #18 tab 06/01/24 Rx 5-325] Melatonin 3 mg PO HS 30 Days #30 tab 06/01/24 Rx Pantoprazole [Protonix] 40 mg PO AC-BRKFST 30 Days #30 tab 06/01/24 Rx Sacubitril/Valsartan [Entresto 49 1 each PO BID 30 Days #60 tab 06/01/24 Rx mg-51 mg Tablet] carvediloL [Coreg] 50 mg PO BID 30 Days #120 tab 06/01/24 Rx Allergies Allergy/AdvReac Type Severity Reaction Status Date / Time Iodinated Contrast Media Allergy Anaphylaxis Verified 07/22/24 17:38 Physical Exam Vitals: Vital Signs Temp Pulse Resp BP Pulse Ox 07/23/24 02:35 64 16 154/82 94 L 07/22/24 23:27 65 18 161/84 99 07/22/24 17:34 97.9 F 67 18 180/79 96 Intake and Output 07/22/24 07/22/24 07/23/24 14:59 22:59 06:59 Other: Weight 90.718 kg Results CBC & Chem 7: 07/22/24 18:40 07/22/24 18:40 Labs: Abnormal Lab Results - Last 24 Hours (Table) 07/22/24 07/22/24 07/22/24 Range/Units 18:40 18:40 18:40 RBC 3.08 L (4.30-5.90) m/uL Hgb 9.0 L (13.0-17.5) gm/dL Hct 30.2 L (39.0-53.0) % MCHC 29.7 L (31.0-37.0) g/dL RDW 19.9 H (11.5-15.5) % Plt Count 139 L (150-450) k/uL Lymphocytes # 0.4 L (1.0-4.8) k/uL PT 14.9 H (10.0-12.5) sec INR 1.4 H (<1.2) Sodium 128 L (137-145) mmol/L Chloride 91 L (98-107) mmol/L Carbon Dioxide 18 L (22-30) mmol/L BUN 50 H (9-20) mg/dL Creatinine 5.62 H (0.66-1.25) mg/dL Glucose 603 H* (74-99) mg/dL POC Glucose (mg/dL) (70-110) mg/dL Calcium 8.0 L (8.4-10.2) mg/dL AST 120 H (17-59) U/L ALT 139 H (4-49) U/L Alkaline Phosphatase 393 H (38-126) U/L Troponin I (0.000-0.034) ng/mL Albumin 3.2 L (3.5-5.0) g/dL 07/22/24 07/22/24 07/22/24 Range/Units 18:40 19:58 21:39 RBC (4.30-5.90) m/uL Hgb (13.0-17.5) gm/dL Hct (39.0-53.0) % MCHC (31.0-37.0) g/dL RDW (11.5-15.5) % Plt Count (150-450) k/uL Lymphocytes # (1.0-4.8) k/uL PT (10.0-12.5) sec INR (<1.2) Sodium (137-145) mmol/L Chloride (98-107) mmol/L Carbon Dioxide (22-30) mmol/L BUN (9-20) mg/dL Creatinine (0.66-1.25) mg/dL Glucose (74-99) mg/dL POC Glucose (mg/dL) 562 H* 495 H (70-110) mg/dL Calcium (8.4-10.2) mg/dL AST (17-59) U/L ALT (4-49) U/L Alkaline Phosphatase (38-126) U/L Troponin I 0.097 H* (0.000-0.034) ng/mL Albumin (3.5-5.0) g/dL 07/22/24 07/23/24 Range/Units 22:44 01:36 RBC (4.30-5.90) m/uL Hgb (13.0-17.5) gm/dL Hct (39.0-53.0) % MCHC (31.0-37.0) g/dL RDW (11.5-15.5) % Plt Count (150-450) k/uL Lymphocytes # (1.0-4.8) k/uL PT (10.0-12.5) sec INR (<1.2) Sodium (137-145) mmol/L Chloride (98-107) mmol/L Carbon Dioxide (22-30) mmol/L BUN (9-20) mg/dL Creatinine (0.66-1.25) mg/dL Glucose (74-99) mg/dL POC Glucose (mg/dL) 429 H 351 H (70-110) mg/dL Calcium (8.4-10.2) mg/dL AST (17-59) U/L ALT (4-49) U/L Alkaline Phosphatase (38-126) U/L Troponin I (0.000-0.034) ng/mL Albumin (3.5-5.0) g/dL
[2024-07-23 04:18] LABS: Anisocytosis Slight; HCT 27.7 % (39.0-53.0); HGB 8.7 gm/dL (13.0-17.5); Hypochromasia Marked; MCH 30.2 pg (25.0-35.0); MCHC 31.3 g/dL (31.0-37.0); MCV 96.6 fL (80.0-100.0); Macrocytosis Slight; Mean Platelet Volume 7.8; Platelet Count 137 k/uL (150-450); RBC 2.87 m/uL (4.30-5.90); RDW 19.9 % (11.5-15.5); WBC 4.4 k/uL (3.8-10.6)
[2024-07-23 04:27] LABS: African American GFR (CKD) 11 (>60 ml/min/1.73 sqM); Anion Gap 13 mmol/L; Blood Urea Nitrogen 54 mg/dL (9-20); Calcium 7.8 mg/dL (8.4-10.2); Carbon Dioxide 21 mmol/L (22-30); Chloride 95 mmol/L (98-107); Glucose 272 mg/dL (74-99); Magnesium 2.4 mg/dL (1.6-2.3); Non-African American GFR(CKD) 9 (>60 ml/min/1.73 sqM); Potassium 4.5 mmol/L (3.5-5.1); Sodium 129 mmol/L (137-145)
[2024-07-23 08:47] LABS: Glucose,Whole Blood 330 mg/dL (70-110)
[2024-07-23] MEDS: HEPARIN SODIUM,PORCINE 5,000 UNIT/ML 1 ML VIAL SQ SCH (08:57)
[2024-07-23] MEDS: INSULIN ASPART (NovoLOG) 100 UNIT/ML VIAL SQ SCH (08:59)
[2024-07-23] MEDS ORDERED: ALPRAZolam 0.5 MG TAB PO PRN (09:28)
[2024-07-23] MEDS ORDERED: MIDODRINE 5 MG TAB PO PRN (09:28)
[2024-07-23] MEDS: FOLIC ACID-VIT B COMPLEX-VIT C 1 CAP PO SCH (10:25)
[2024-07-23] MEDS: carvediloL 12.5 MG TAB PO SCH (10:25)
[2024-07-23] MEDS: TORSEMIDE 20 MG TAB PO SCH (10:26)
[2024-07-23] MEDS: hydrALAZINE HCL 50 MG TAB PO SCH (10:26)
[2024-07-23] MEDS: ISOSORBIDE MONONITRATE ER 60 MG TAB.ER.24H PO SCH (10:27)
[2024-07-23] MEDS: FLUoxetine HCL 10 MG CAP PO SCH (10:27)
[2024-07-23] MEDS: ASPIRIN 81 MG PO SCH (10:27)
[2024-07-23] MEDS: amLODIPine 10 MG TAB PO SCH (10:27)
[2024-07-23] MEDS: DOXAZOSIN 4 MG TAB PO SCH (10:27)
[2024-07-23] MEDS: PANTOPRAZOLE 40 MG TABLET PO SCH (10:27)
[2024-07-23] MEDS: SACUBITRIL/VALSARTAN 49 MG-51 MG TABLET PO SCH (10:28)
[2024-07-23 12:29] LABS: Glucose,Whole Blood 295 mg/dL (70-110)
[2024-07-23] MEDS: CALCIUM ACETATE 667 MG TAB PO SCH (12:35)
--- NOTE | 2024-07-23 17:03 | P.PN ---
Subjective Progress Note Date: 07/23/24 Hospital course: Patient is a very pleasant 58-year-old male with a past medical history of ESRD on hemodialysis, chronic systolic heart failure with EF of 40%, moderate pulmonary hypertension, hypertension, hyperlipidemia, and insulin-dependent diabetes mellitus on insulin pump. Presented to the emergency department with a chief complaint of generalized weakness and recurrent falls at home. Patient reports in addition he is also missed 2 sessions of hemodialysis secondary to the holiday and overall not feeling well due to weakness and fatigue the past f ew days. Patient reports multiple falls at home and on ground outside. He states injury to his left foot as well. Patient recently underwent hospitalization from 05/25/2024 through 06/01/2024 secondary to sepsis resulting from group A strep bacteremia and infected diabetic ulcer of right heel course of outpatient IV antibiotics. On arrival to our facility, patient underwent evaluation in the emergency department. Vital signs upon arrival show blood pressure 180/79, heart rate 67, respiratory rate 18, temp 97.9 F, and SpO2 of 96% on room air. Chest x-ray completed negative for acute cardiopulmonary process revealing cardiomegaly. X-ray of pelvis negative for acute process. CT chest abdomen and pelvis negative for acute process showing severe arthrosclerosis of the arterial vasculature and cardiomegaly with trace ascites and anasarca. CT head negative for acute intracranial process. CT cervical spine showing mild multilevel degenerative disc disease with no evidence of cervical spine fracture. X-ray left foot showing cortical irregularity involving the proximal phalanx of the left fifth digit concerning for possible fracture and severe atherosclerosis of the arterial vasculature. Labs were completed and reviewed. CBC showing bicytopenia with hemoglobin of 9.0 and platelet count of 139. Coagulation profile showing elevated PT of 14.9 and INR 1.4. BMP showing hyponatremia with sodium of 128, hypochloremia with chloride of 91, bicarb of 18, and elevated anion gap of 19. Renal function showing BUN of 50, creatinine of 5.62, and GFR of 10. Blood glucose initially 603. Lactic acid was 1.3. Liver profile showing transaminitis with AST of 120, ALT of 139, and alkaline phosphatase of 393. Troponin was 0.097. Serum alcohol level was negative and acetone also negative. Physical exam: Patient seen and fully evaluated at bedside. He reports significant weakness and fatigue along with generalized bodyaches. He denies having any headache, lightheadedness, dizziness, chest pain, palpitations, shortness of breath, or experiencing any numbness/tingling/weakness in his extremities. Vital signs reviewed and stable. General: Nontoxic, no distress and appears stated age. Derm: Skin warm and dry, normal coloration for ethnicity. Diabetic ulcer right heel, no drainage noted. Head: Atraumatic, normocephalic and symmetric. Eyes: EOM's intact, no lid lag, and anicteric sclera Mouth: no lip lesions, mucus membranes moist Cardiovascular: regular rate and rhythm with normal S1S2, systolic murmur, positive posterior tibial pulses bilaterally, and cap refill < [address] AV fistula left upper extremity with bruit and thrill present. Permacath in place left anterior chest. Lungs: Respirations even, regular, and unlabored on room air. Lungs CTA bilaterally, no rhonchi, no rales, no wheezing, and no accessory muscle usage. Abdominal: soft, nontender to palpation, no guarding, no appreciable organomegaly Ext: ROM intact. No gross muscle atrophy, 1-2+ pitting bilateral lower extremity edema, no contractures Neuro: Speech clear, face symmetrical and CN II-XII grossly intact with no noted focal neuro deficits Psych: Alert and oriented to person, place, time, and situation. Appropriate and pleasant affect. Assessment and Plan of Care: Generalized weakness and recurrent falls at home, multifactorial secondary to sickle deconditioning from recent hospitalization for sepsis along with missed dialysis sessions and multiple comorbidities. Fracture of proximal phalanx of left fifth digit -Fall precautions in place. -Consult to orthopedic surgery to evaluate for possible walking boot and activity recommendations -Follow-up on repeat blood cultures secondary to recent hospitalization with sepsis and-bacteremia. -Cepheid 4 Plex panel to be obtained as patient reports generalized weakness and bodyaches. -Consult placed to PT/OT. -Obtain orthostatic vitals secondary to recurrent reports of falls. ESRD on hemodialysis, missed dialysis sessions outpatient High anion gap metabolic alkalosis Anemia of chronic disease, secondary to ESRD Hypochloremic Hyponatremia secondary to hypervolemia and fluid volume overload Elevated troponin, likely secondary to ESRD and missed dialysis Thrombocytopenia -Nephrology following and managing hemodialysis. Discussed case in detail with Dr. Shaffer patient to undergo dialysis today and be maintained on current dialysis schedule Friday/Friday/Fridays with continuation of Aranesp.. -Continue torsemide 100 mg daily. -Elevated troponin likely secondary to ESRD and missed dialysis sessions however will obtain a repeat troponin and if uptrending will consult cardiology. Insulin Dependent Diabetes mellitus with hyperglycemia -Patient disconnected home insulin pump and presented with hyperglycemia with blood glucoose of 603 morning blood glucose level improving to 272. Hyperglycemia was treated and patient placed on sliding scale. Continue with glycemic protocol and NovoLog sliding scale. Transaminitis -Worsening chronic transaminitis. Patient denies abdominal pain/discomfort and denies alcohol use/abuse, but does have questionable history. Alcohol level less than 10. CT abdomen and pelvis negative for acute process did revealed mild anasarca and trace ascites. -Caution with hepatotoxic medications. Continued close monitoring with repeat a.m. labs. Chronic systolic heart failure with a EF of 40%. -Patient to continue cardiac medication regimen with aspirin 81 mg daily, amlodipine 10 mg daily, atorvastatin 20 mg daily, carvedilol 25 mg twice daily, hydralazine 100 mg 3 times daily, valsartan 160 mg daily, isosorbide mononitrate 60 mg daily, clonidine patch weekly with dose of 0.1 mg every 24 hours, and torsemide 100 mg daily. -Patient also to be given midodrine 5 mg daily as needed for hypotension. Hypertension. -Continue medication regimen with amlodipine 10 mg daily,carvedilol 25 mg twice daily, hydralazine 100 mg 3 times daily, clonidine patch weekly with dose of 0.1 mg every 24 hours, and torsemide 100 mg daily. Hyperlipidemia. -Continue medication regimen with atorvastatin 20 mg daily. Data and imaging reviewed: Morning labs reviewed. CBC showing bicytopenia with hemoglobin of 8.7 and platelet count of 137. BMP showing continued hyponatremia sodium of 129, chloride of 95, bicarb of 21, and anion gap of 13 with worsening renal function with BUN of 54, creatinine of 6.18, GFR of 9. Vital signs reviewed. Blood pressure 180/83, heart rate 71, respiratory rate 18, temp 97.9 F, and SpO2 of 96% on room air. CODE STATUS: Full code DVT prophylaxis: Heparin Anticipated discharge date: Pending clinical course Anticipated discharge place: Pending clinical course Patient was seen independently by Nurse Pracitioner. This document was prepared using [employer] dictation software. Please allow for errors in awnings mechanic, while rare they do occur. Anton Salgado, DYNAMOMETER MECHANIC rendered care for this patient independently, reviewed the findings and plan as documented in the note above and agree with plan. I did not physically speak with or examine the patient on this date. Objective - Vital Signs Vital signs: Vital Signs Temp 97.9 F 07/23/24 09:00 Pulse 71 07/23/24 09:00 Resp 18 07/23/24 09:00 BP 180/83 07/23/24 09:00 Pulse Ox 96 07/23/24 09:00 FiO2 Intake & Output 07/22/24 07/23/24 07/23/24 18:59 06:59 18:59 Weight 90.718 kg - Labs CBC & Chem 7: 07/23/24 04:03 07/23/24 04:03 Labs: Abnormal Lab Results - Last 24 Hours (Table) 07/22/24 07/22/24 07/22/24 Range/Units 18:40 18:40 18:40 RBC 3.08 L (4.30-5.90) m/uL Hgb 9.0 L (13.0-17.5) gm/dL Hct 30.2 L (39.0-53.0) % MCHC 29.7 L (31.0-37.0) g/dL RDW 19.9 H (11.5-15.5) % Plt Count 139 L (150-450) k/uL Lymphocytes # 0.4 L (1.0-4.8) k/uL PT 14.9 H (10.0-12.5) sec INR 1.4 H (<1.2) Sodium 128 L (137-145) mmol/L Chloride 91 L (98-107) mmol/L Carbon Dioxide 18 L (22-30) mmol/L BUN 50 H (9-20) mg/dL Creatinine 5.62 H (0.66-1.25) mg/dL Glucose 603 H* (74-99) mg/dL POC Glucose (mg/dL) (70-110) mg/dL Calcium 8.0 L (8.4-10.2) mg/dL Magnesium (1.6-2.3) mg/dL AST 120 H (17-59) U/L ALT 139 H (4-49) U/L Alkaline Phosphatase 393 H (38-126) U/L Troponin I (0.000-0.034) ng/mL Albumin 3.2 L (3.5-5.0) g/dL 07/22/24 07/22/24 07/22/24 Range/Units 18:40 19:58 21:39 RBC (4.30-5.90) m/uL Hgb (13.0-17.5) gm/dL Hct (39.0-53.0) % MCHC (31.0-37.0) g/dL RDW (11.5-15.5) % Plt Count (150-450) k/uL Lymphocytes # (1.0-4.8) k/uL PT (10.0-12.5) sec INR (<1.2) Sodium (137-145) mmol/L Chloride (98-107) mmol/L Carbon Dioxide (22-30) mmol/L BUN (9-20) mg/dL Creatinine (0.66-1.25) mg/dL Glucose (74-99) mg/dL POC Glucose (mg/dL) 562 H* 495 H (70-110) mg/dL Calcium (8.4-10.2) mg/dL Magnesium (1.6-2.3) mg/dL AST (17-59) U/L ALT (4-49) U/L Alkaline Phosphatase (38-126) U/L Troponin I 0.097 H* (0.000-0.034) ng/mL Albumin (3.5-5.0) g/dL 07/22/24 07/23/24 07/23/24 Range/Units 22:44 01:36 04:03 RBC 2.87 L (4.30-5.90) m/uL Hgb 8.7 L (13.0-17.5) gm/dL Hct 27.7 L (39.0-53.0) % MCHC (31.0-37.0) g/dL RDW 19.9 H (11.5-15.5) % Plt Count 137 L (150-450) k/uL Lymphocytes # (1.0-4.8) k/uL PT (10.0-12.5) sec INR (<1.2) Sodium (137-145) mmol/L Chloride (98-107) mmol/L Carbon Dioxide (22-30) mmol/L BUN (9-20) mg/dL Creatinine (0.66-1.25) mg/dL Glucose (74-99) mg/dL POC Glucose (mg/dL) 429 H 351 H (70-110) mg/dL Calcium (8.4-10.2) mg/dL Magnesium (1.6-2.3) mg/dL AST (17-59) U/L ALT (4-49) U/L Alkaline Phosphatase (38-126) U/L Troponin I (0.000-0.034) ng/mL Albumin (3.5-5.0) g/dL 07/23/24 07/23/24 Range/Units 04:03 08:46 RBC (4.30-5.90) m/uL Hgb (13.0-17.5) gm/dL Hct (39.0-53.0) % MCHC (31.0-37.0) g/dL RDW (11.5-15.5) % Plt Count (150-450) k/uL Lymphocytes # (1.0-4.8) k/uL PT (10.0-12.5) sec INR (<1.2) Sodium 129 L (137-145) mmol/L Chloride 95 L (98-107) mmol/L Carbon Dioxide 21 L (22-30) mmol/L BUN 54 H (9-20) mg/dL Creatinine 6.18 H (0.66-1.25) mg/dL Glucose 272 H (74-99) mg/dL POC Glucose (mg/dL) 330 H (70-110) mg/dL Calcium 7.8 L (8.4-10.2) mg/dL Magnesium 2.4 H (1.6-2.3) mg/dL AST (17-59) U/L ALT (4-49) U/L Alkaline Phosphatase (38-126) U/L Troponin I (0.000-0.034) ng/mL Albumin (3.5-5.0) g/dL
[2024-07-23 17:23] LABS: Glucose,Whole Blood 205 mg/dL (70-110)
--- NOTE | 2024-07-23 17:33 | P.NPCON ---
History of Present Illness - Reason for Consult end stage renal disease - History of Present Illness Patient is a 58-year-old male with end-stage renal disease on hemodialysis on Friday schedule. He is admitted to the hospital with history of increased weakness and inability to ambulate. Patient has also had multiple falls. No hypotension documented. Blood pressure is actually high. No history of fever chills No history of cough chest pain or abdominal pain. Past Medical History Past Medical History: Diabetes Mellitus, Dialysis, Renal Disease, Hypertension, Renal Disease Additional Past Medical History / Comment(s): IDDM type I on insulin pump, DKA, chronic kidney disease, bilateral lower extremity edema. HD on MWF History of Any Multi-Drug Resistant Organisms: None Reported Past Surgical History: No Surgical Hx Reported Additional Past Surgical History / Comment(s): R knee arthroscopy, circumcism, HD cath in chest Past Anesthesia/Blood Transfusion Reactions: No Reported Reaction Past Psychological History: No Psychological Hx Reported Smoking Status: Former smoker Past Alcohol Use History: None Reported Past Drug Use History: None Reported - Past Family History Mother History Unknown: Yes Family Medical History: COPD Father Family Medical History: No Reported History Additional Family Medical History / Comment(s): Mother is healthy. Medications and Allergies Home Medications Medication Instructions Recorded Confirmed Type Insulin Aspart (For Pump) [NovoLOG 0.01 unit SQ-PUMP CONTINUOUS 02/21/23 07/23/24 History (For Pump)] FLUoxetine HCL [PROzac] 10 mg PO DAILY 07/14/23 07/23/24 History Atorvastatin [Lipitor] 20 mg PO HS 11/14/23 07/23/24 History Folic Acid/Vit B Complex and C 0.8 mg PO DAILY 11/14/23 07/23/24 History [Lilian-Marsha Tablet] amLODIPine [Norvasc] 10 mg PO DAILY 11/14/23 07/23/24 History hydrALAZINE HCL [Apresoline] 100 mg PO TID 11/14/23 07/23/24 History Aspirin 81 mg PO DAILY 30 Days #30 tab 11/28/23 07/23/24 Rx Torsemide [Demadex] 100 mg PO DAILY 02/09/24 07/23/24 History Doxazosin [Cardura] 4 mg PO DAILY 05/06/24 07/23/24 History Isosorbide Mononitrate ER [Imdur] 60 mg PO DAILY 05/06/24 07/23/24 History Midodrine [ProAmatine] 5 mg PO DAILY PRN 05/06/24 07/23/24 History cloNIDine 0.1 MG/24HR PATCH 1 patch TRANSDERM WE 05/06/24 07/23/24 History [Catapres-TTS] ALPRAZolam [Xanax] 0.5 mg PO HS PRN 7 Days #7 tab 06/01/24 07/23/24 Rx Calcium Acetate [PhosLo] 667 mg PO TID-W/MEALS 30 Days #90 06/01/24 07/23/24 Rx tab Darbepoetin John [Aranesp] 40 mcg SQ Q7D each 06/01/24 07/23/24 Rx HYDROcodone/APAP 5-325MG [[place] 1 each PO Q4HR PRN #18 tab 06/01/24 07/23/24 Rx 5-325] Melatonin 3 mg PO HS 30 Days #30 tab 06/01/24 07/23/24 Rx Pantoprazole [Protonix] 40 mg PO AC-BRKFST 30 Days #30 tab 06/01/24 07/23/24 Rx Sacubitril/Valsartan [Entresto 49 1 each PO BID 30 Days #60 tab 06/01/24 07/23/24 Rx mg-51 mg Tablet] carvediloL [Coreg] 50 mg PO BID 30 Days #120 tab 06/01/24 07/23/24 Rx Allergies Allergy/AdvReac Type Severity Reaction Status Date / Time Iodinated Contrast Media Allergy Anaphylaxis Verified 07/22/24 17:38 Physical Exam Vitals: Vital Signs Temp Pulse Resp BP Pulse Ox 07/23/24 16:33 98.1 F 60 16 134/81 94 L 07/23/24 15:10 97.9 F 65 16 161/90 96 07/23/24 12:00 98 F 70 16 160/80 99 07/23/24 09:00 97.9 F 71 18 180/83 96 07/23/24 02:35 64 16 154/82 94 L 07/22/24 23:27 65 18 161/84 99 07/22/24 17:34 97.9 F 67 18 180/79 96 Patient is awake, comfortable, no acute distress. Alert oriented x 3 Examination of the heart S1 and S2 Examination of the lungs bilateral breath sounds are heard Abdomen soft nontender Examination of lower extremities shows chronic skin changes with chronic edema Results - Lab Results Most recent lab results Calcium 7.8 mg/dL (8.4-10.2) L 07/23/24 04:03 Magnesium 2.4 mg/dL (1.6-2.3) H 07/23/24 04:03 07/23/24 04:03 07/23/24 04:03 Assessment and Plan Assessment: 1. End-stage renal disease on hemodialysis on Friday schedule via IJ permacath 2. Anemia of chronic disease 3. Uncontrolled hypertension, partly volume sensitive 4. CKD mineral bone disorder Plan: Hemodialysis today Increase dose of Aranesp Resume home antihypertensive medications Resume phosphate binders Possible discharge to rehab Agree with checking orthostatic blood pressures. Thank you for the consultation. We will continue to follow the patient with you during his hospitalization
[2024-07-23 21:22] LABS: Glucose,Whole Blood 214 mg/dL (70-110)
[2024-07-23] MEDS: MELATONIN 3 MG TABLET PO SCH (21:25)
[2024-07-23] MEDS: ATORVASTATIN 20 MG TAB PO SCH (21:25)
[2024-07-23 22:19] LABS: Amphetamine Screen,Urine Not Detected (NotDetected); Barbiturate Screen,Urine Not Detected (NotDetected); Benzodiazepines Screen,Urine Not Detected (NotDetected); Cocaine Screen,Urine Not Detected (NotDetected); Methadone Screen, Urine Not Detected (NotDetected); Opiate Screen,Urine Detected (NotDetected); Oxycodone Screen, Urine Not Detected (NotDetected); Phencyclidine Screen,Urine Not Detected (NotDetected); Tricyclic Antidepressant,Urine Not Detected (NotDetected); Urn Cannabinoid Scrn Detected (NotDetected)
[2024-07-24] MEDS: HYDROcodone/APAP 5-325MG 1 EACH TAB PO PRN (03:28)
[2024-07-24 05:47] LABS: Glucose,Whole Blood 273 mg/dL (70-110)
[2024-07-24 06:13] LABS: Anisocytosis Moderate; HCT 26.7 % (39.0-53.0); HGB 8.3 gm/dL (13.0-17.5); Hypochromasia Marked; MCH 30.1 pg (25.0-35.0); MCHC 30.9 g/dL (31.0-37.0); MCV 97.2 fL (80.0-100.0); Macrocytosis Slight; Mean Platelet Volume 8.7; Platelet Count 113 k/uL (150-450); RBC 2.75 m/uL (4.30-5.90); RDW 20.5 % (11.5-15.5); WBC 5.2 k/uL (3.8-10.6)
[2024-07-24 06:49] LABS: ALT 114 U/L (4-49); AST 89 U/L (17-59); African American GFR (CKD) 16 (>60 ml/min/1.73 sqM); Albumin 2.7 g/dL (3.5-5.0); Alkaline Phosphatase 338 U/L (38-126); Anion Gap 12 mmol/L; Blood Urea Nitrogen 34 mg/dL (9-20); Calcium 7.6 mg/dL (8.4-10.2); Carbon Dioxide 23 mmol/L (22-30); Chloride 94 mmol/L (98-107); Glucose 268 mg/dL (74-99); Non-African American GFR(CKD) 14 (>60 ml/min/1.73 sqM); Sodium 129 mmol/L (137-145); Total Bilirubin 0.9 mg/dL (0.2-1.3); Total Protein 6.6 g/dL (6.3-8.2)
--- NOTE | 2024-07-24 09:45 | P.PN ---
Subjective Patient is seen in follow-up for end-stage renal disease. No problems with dialysis yesterday. Blood pressure stable this morning. Feels weak. Vital signs are stable. General: No acute distress. HEENT: Head exam is unremarkable. LUNGS: No audible rhonchi or wheezes. HEART: Rate and Rhythm are regular. ABDOMEN: Nontender. EXTREMITITES: No edema. Objective - Vital Signs Vital signs: Vital Signs Temp 97.6 F 07/24/24 03:15 Pulse 70 07/24/24 03:15 Resp 16 07/24/24 03:15 BP 148/75 07/24/24 03:15 Pulse Ox 94 L 07/24/24 03:15 FiO2 Intake & Output 07/23/24 07/24/24 07/24/24 18:59 06:59 18:59 Intake Total 960 Output Total 4500 Balance -3540 Weight 90.718 kg 89.4 kg Intake: IV 20 Invasive Line 1 20 Oral 540 Hemodialysis 400 Output: Urine 100 Hemodialysis 2400 Hemodialysis Net Amount 2000 Other: Voiding Method Urinal # Bowel Movements 1 - Labs CBC & Chem 7: 07/24/24 05:58 07/24/24 05:58 Labs: Abnormal Lab Results - Last 24 Hours (Table) 07/23/24 07/23/24 07/23/24 Range/Units 12:27 16:42 17:21 RBC (4.30-5.90) m/uL Hgb (13.0-17.5) gm/dL Hct (39.0-53.0) % MCHC (31.0-37.0) g/dL RDW (11.5-15.5) % Plt Count (150-450) k/uL Sodium (137-145) mmol/L Chloride (98-107) mmol/L BUN (9-20) mg/dL Creatinine (0.66-1.25) mg/dL Glucose (74-99) mg/dL POC Glucose (mg/dL) 295 H 205 H (70-110) mg/dL Calcium (8.4-10.2) mg/dL AST (17-59) U/L ALT (4-49) U/L Alkaline Phosphatase (38-126) U/L Troponin I 0.066 H* (0.000-0.034) ng/mL Albumin (3.5-5.0) g/dL Urine Opiates Screen (NotDetected) U Marijuana (THC) Screen (NotDetected) 07/23/24 07/23/24 07/24/24 Range/Units 21:21 21:49 05:46 RBC (4.30-5.90) m/uL Hgb (13.0-17.5) gm/dL Hct (39.0-53.0) % MCHC (31.0-37.0) g/dL RDW (11.5-15.5) % Plt Count (150-450) k/uL Sodium (137-145) mmol/L Chloride (98-107) mmol/L BUN (9-20) mg/dL Creatinine (0.66-1.25) mg/dL Glucose (74-99) mg/dL POC Glucose (mg/dL) 214 H 273 H (70-110) mg/dL Calcium (8.4-10.2) mg/dL AST (17-59) U/L ALT (4-49) U/L Alkaline Phosphatase (38-126) U/L Troponin I (0.000-0.034) ng/mL Albumin (3.5-5.0) g/dL Urine Opiates Screen Detected H (NotDetected) U Marijuana (THC) Screen Detected H (NotDetected) 07/24/24 07/24/24 Range/Units 05:58 05:58 RBC 2.75 L (4.30-5.90) m/uL Hgb 8.3 L (13.0-17.5) gm/dL Hct 26.7 L (39.0-53.0) % MCHC 30.9 L (31.0-37.0) g/dL RDW 20.5 H (11.5-15.5) % Plt Count 113 L (150-450) k/uL Sodium 129 L (137-145) mmol/L Chloride 94 L (98-107) mmol/L BUN 34 H (9-20) mg/dL Creatinine 4.32 H (0.66-1.25) mg/dL Glucose 268 H (74-99) mg/dL POC Glucose (mg/dL) (70-110) mg/dL Calcium 7.6 L (8.4-10.2) mg/dL AST 89 H (17-59) U/L ALT 114 H (4-49) U/L Alkaline Phosphatase 338 H (38-126) U/L Troponin I (0.000-0.034) ng/mL Albumin 2.7 L (3.5-5.0) g/dL Urine Opiates Screen (NotDetected) U Marijuana (THC) Screen (NotDetected) Assessment and Plan Plan: Assessment: 1. End-stage renal disease maintained on hemodialysis on Friday schedule. 2. Hypertension with chronic kidney disease. 3. Volume overload. Improved with ultrafiltration. 4. Chronic kidney disease mineral bone disease maintained on PhosLo. 5. Anemia of chronic kidney disease maintained on Aranesp. 6. Diabetes mellitus. Plan: Hemodialysis Friday. Check orthostatic vital signs. Blood glucose control.
--- NOTE | 2024-07-24 10:26 | P.CNOR ---
History of Present Illness - [facility] Consult date: 07/24/24 Consult reason: fracture (Left little toe.) History of present illness: This is a 58-year-old male who had a fall 2 days ago and sustained injury to his left foot. The patient has multiple medical comorbidities and does have chronic swelling to the lower extremities and is a patient at the wound care center. Wh en he fell he noticed soreness to his little toe on the left foot. We are consulted for orthopedic evaluation. Past Medical History Past Medical History: Diabetes Mellitus, Dialysis, Renal Disease, Hypertension, Renal Disease Additional Past Medical History / Comment(s): IDDM type I on insulin pump, DKA, chronic kidney disease, bilateral lower extremity edema. HD on MWF History of Any Multi-Drug Resistant Organisms: None Reported Past Surgical History: No Surgical Hx Reported Additional Past Surgical History / Comment(s): R knee arthroscopy, circumcism, HD cath in chest Past Anesthesia/Blood Transfusion Reactions: No Reported Reaction Past Psychological History: No Psychological Hx Reported Additional Psychological History / Comment(s): Pt resides with his spouse. He is independent. Smoking Status: Former smoker Past Alcohol Use History: None Reported Additional Past Alcohol Use History / Comment(s): Pt started smoking in 1985 and quit 07/25/20 Past Drug Use History: None Reported Additional Drug Use History / Comment(s): emi perez - Past Family History Mother History Unknown: Yes Family Medical History: COPD Father Family Medical History: No Reported History Additional Family Medical History / Comment(s): Mother is healthy. Medications and Allergies Home Medications Medication Instructions Recorded Confirmed Type Insulin Aspart (For Pump) [NovoLOG 0.01 unit SQ-PUMP CONTINUOUS 02/21/23 07/23/24 History (For Pump)] FLUoxetine HCL [PROzac] 10 mg PO DAILY 07/14/23 07/23/24 History Atorvastatin [Lipitor] 20 mg PO HS 11/14/23 07/23/24 History Folic Acid/Vit B Complex and C 0.8 mg PO DAILY 11/14/23 07/23/24 History [Lilian-Marsha Tablet] amLODIPine [Norvasc] 10 mg PO DAILY 11/14/23 07/23/24 History hydrALAZINE HCL [Apresoline] 100 mg PO TID 11/14/23 07/23/24 History Aspirin 81 mg PO DAILY 30 Days #30 tab 11/28/23 07/23/24 Rx Torsemide [Demadex] 100 mg PO DAILY 02/09/24 07/23/24 History Doxazosin [Cardura] 4 mg PO DAILY 05/06/24 07/23/24 History Isosorbide Mononitrate ER [Imdur] 60 mg PO DAILY 05/06/24 07/23/24 History Midodrine [ProAmatine] 5 mg PO DAILY PRN 05/06/24 07/23/24 History cloNIDine 0.1 MG/24HR PATCH 1 patch TRANSDERM WE 05/06/24 07/23/24 History [Catapres-TTS] ALPRAZolam [Xanax] 0.5 mg PO HS PRN 7 Days #7 tab 06/01/24 07/23/24 Rx Calcium Acetate [PhosLo] 667 mg PO TID-W/MEALS 30 Days #90 06/01/24 07/23/24 Rx tab Darbepoetin John [Aranesp] 40 mcg SQ Q7D each 06/01/24 07/23/24 Rx HYDROcodone/APAP 5-325MG [[place] 1 each PO Q4HR PRN #18 tab 06/01/24 07/23/24 Rx 5-325] Melatonin 3 mg PO HS 30 Days #30 tab 06/01/24 07/23/24 Rx Pantoprazole [Protonix] 40 mg PO AC-BRKFST 30 Days #30 tab 06/01/24 07/23/24 Rx Sacubitril/Valsartan [Entresto 49 1 each PO BID 30 Days #60 tab 06/01/24 07/23/24 Rx mg-51 mg Tablet] carvediloL [Coreg] 50 mg PO BID 30 Days #120 tab 06/01/24 07/23/24 Rx Allergies Allergy/AdvReac Type Severity Reaction Status Date / Time Iodinated Contrast Media Allergy Anaphylaxis Verified 07/22/24 17:38 Physical Examination Exam of the lower extremities reveals swelling with mild redness consistent with chronic venous stasis. There are multiple skin ulcers about the lower legs. Exam of the left foot reveals ecchymosis and swelling to the little toe. There is a skin tear noted at the base of the fifth toe in the webspace between the fourth and fifth toes. There is no active bleeding at this time. There is pain with palpation about the base of the little toe. Neurovascular status to the lower extremities grossly intact. There are no other orthopedic injuries noted. Results X-rays of the left foot reveal a nondisplaced transverse fracture of the proximal phalanx base on the fifth toe. No other fractures noted. Pelvis x-rays reveal no acute fracture. - Labs Labs: Abnormal Lab Results - Last 24 Hours (Table) 07/23/24 07/23/24 07/23/24 Range/Units 12:27 16:42 17:21 RBC (4.30-5.90) m/uL Hgb (13.0-17.5) gm/dL Hct (39.0-53.0) % MCHC (31.0-37.0) g/dL RDW (11.5-15.5) % Plt Count (150-450) k/uL Sodium (137-145) mmol/L Chloride (98-107) mmol/L BUN (9-20) mg/dL Creatinine (0.66-1.25) mg/dL Glucose (74-99) mg/dL POC Glucose (mg/dL) 295 H 205 H (70-110) mg/dL Calcium (8.4-10.2) mg/dL AST (17-59) U/L ALT (4-49) U/L Alkaline Phosphatase (38-126) U/L Troponin I 0.066 H* (0.000-0.034) ng/mL Albumin (3.5-5.0) g/dL Urine Opiates Screen (NotDetected) U Marijuana (THC) Screen (NotDetected) 07/23/24 07/23/24 07/24/24 Range/Units 21:21 21:49 05:46 RBC (4.30-5.90) m/uL Hgb (13.0-17.5) gm/dL Hct (39.0-53.0) % MCHC (31.0-37.0) g/dL RDW (11.5-15.5) % Plt Count (150-450) k/uL Sodium (137-145) mmol/L Chloride (98-107) mmol/L BUN (9-20) mg/dL Creatinine (0.66-1.25) mg/dL Glucose (74-99) mg/dL POC Glucose (mg/dL) 214 H 273 H (70-110) mg/dL Calcium (8.4-10.2) mg/dL AST (17-59) U/L ALT (4-49) U/L Alkaline Phosphatase (38-126) U/L Troponin I (0.000-0.034) ng/mL Albumin (3.5-5.0) g/dL Urine Opiates Screen Detected H (NotDetected) U Marijuana (THC) Screen Detected H (NotDetected) 07/24/24 07/24/24 Range/Units 05:58 05:58 RBC 2.75 L (4.30-5.90) m/uL Hgb 8.3 L (13.0-17.5) gm/dL Hct 26.7 L (39.0-53.0) % MCHC 30.9 L (31.0-37.0) g/dL RDW 20.5 H (11.5-15.5) % Plt Count 113 L (150-450) k/uL Sodium 129 L (137-145) mmol/L Chloride 94 L (98-107) mmol/L BUN 34 H (9-20) mg/dL Creatinine 4.32 H (0.66-1.25) mg/dL Glucose 268 H (74-99) mg/dL POC Glucose (mg/dL) (70-110) mg/dL Calcium 7.6 L (8.4-10.2) mg/dL AST 89 H (17-59) U/L ALT 114 H (4-49) U/L Alkaline Phosphatase 338 H (38-126) U/L Troponin I (0.000-0.034) ng/mL Albumin 2.7 L (3.5-5.0) g/dL Urine Opiates Screen (NotDetected) U Marijuana (THC) Screen (NotDetected) H & H 07/22/24 07/23/24 07/24/24 Range/Units 18:40 04:03 05:58 Hgb 9.0 L 8.7 L 8.3 L (13.0-17.5) gm/dL Hct 30.2 L 27.7 L 26.7 L (39.0-53.0) % Coagulation 07/22/24 Range/Units 18:40 INR 1.4 H (<1.2) Result Diagrams: 07/24/24 05:58 07/24/24 05:58 Assessment and Plan (1) Toe fracture, left Current Visit: Yes Status: Acute Code(s): S92.912A - UNSP FRACTURE OF LEFT TOE(S), INIT FOR CLOS FX SNOMED Code(s): 95497766 (2) Weakness Current Visit: Yes Status: Acute Code(s): R53.1 - WEAKNESS SNOMED Code(s): 10623772 Plan: The clinical and x-ray findings are discussed with the patient. He will continue local wound care per the wound care nurse. I advised that a dressing be placed between the toes. I recommend that he be in a rigid postop shoe for support when ambulating. He may follow-up in our office in 3 to 4 weeks for further evaluation and x-ray.
[2024-07-24 11:36] LABS: Glucose,Whole Blood 329 mg/dL (70-110)
--- NOTE | 2024-07-24 16:09 | P.PN ---
Subjective Progress Note Date: 07/24/24 Hospital course: Patient is a very pleasant 58-year-old male with a past medical history of ESRD on hemodialysis, chronic systolic heart failure with EF of 40%, moderate pulmonary hypertension, hypertension, hyperlipidemia, and insulin-dependent diabetes mellitus on insulin pump. Presented to the emergency department with a chief complaint of generalized weakness and recurrent falls at home. Patient reports in addition he is also missed 2 sessions of hemodialysis secondary to the holiday and overall not feeling well due to weakness and fatigue the past f ew days. Patient reports multiple falls at home and on ground outside. He states injury to his left foot as well. Patient recently underwent hospitalization from 05/25/2024 through 06/01/2024 secondary to sepsis resulting from group A strep bacteremia and infected diabetic ulcer of right heel course of outpatient IV antibiotics. On arrival to our facility, patient underwent evaluation in the emergency department. Vital signs upon arrival show blood pressure 180/79, heart rate 67, respiratory rate 18, temp 97.9 F, and SpO2 of 96% on room air. Chest x-ray completed negative for acute cardiopulmonary process revealing cardiomegaly. X-ray of pelvis negative for acute process. CT chest abdomen and pelvis negative for acute process showing severe arthrosclerosis of the arterial vasculature and cardiomegaly with trace ascites and anasarca. CT head negative for acute intracranial process. CT cervical spine showing mild multilevel degenerative disc disease with no evidence of cervical spine fracture. X-ray left foot showing cortical irregularity involving the proximal phalanx of the left fifth digit concerning for possible fracture and severe atherosclerosis of the arterial vasculature. Labs were completed and reviewed. CBC showing bicytopenia with hemoglobin of 9.0 and platelet count of 139. Coagulation profile showing elevated PT of 14.9 and INR 1.4. BMP showing hyponatremia with sodium of 128, hypochloremia with chloride of 91, bicarb of 18, and elevated anion gap of 19. Renal function showing BUN of 50, creatinine of 5.62, and GFR of 10. Blood glucose initially 603. Lactic acid was 1.3. Liver profile showing transaminitis with AST of 120, ALT of 139, and alkaline phosphatase of 393. Troponin was 0.097. Serum alcohol level was negative and acetone also negative. Physical exam: Patient seen and fully evaluated at bedside. He reports very tired and weak. Patient currently reports pain is controlled to left foot with current pain medication regimen. Vital signs reviewed and stable. General: Nontoxic, no distress and appears stated age. Derm: Skin warm and dry, normal coloration for ethnicity. Diabetic ulcer right heel, no drainage noted. Head: Atraumatic, normocephalic and symmetric. Eyes: EOM's intact, no lid lag, and anicteric sclera Mouth: no lip lesions, mucus membranes moist Cardiovascular: regular rate and rhythm with normal S1S2, systolic murmur, positive posterior tibial pulses bilaterally, and cap refill < [address] AV fistula left upper extremity with bruit and thrill present. Permacath in place left anterior chest. Lungs: Respirations even, regular, and unlabored on room air. Lungs CTA bilaterally, no rhonchi, no rales, no wheezing, and no accessory muscle usage. Abdominal: soft, nontender to palpation, no guarding, no appreciable organomegaly Ext: ROM intact. No gross muscle atrophy, 1-2+ pitting bilateral lower extremity edema, no contractures Neuro: Speech clear, face symmetrical and CN II-XII grossly intact with no noted focal neuro deficits Psych: Alert and oriented to person, place, time, and situation. Appropriate and pleasant affect. Assessment and Plan of Care: Generalized weakness and recurrent falls at home, multifactorial secondary to sickle deconditioning from recent hospitalization for sepsis along with missed dialysis sessions and multiple comorbidities. Fracture of proximal phalanx of left fifth digit -Fall precautions in place. -Orthopedic surgery evaluated and discussed plan of care in detail with orthopedic PA stating patient will require rigid soled postop shoe to left foot with a dressing be placed between the toes to prevent irritation and for patient to follow-up in their office in 3 to 4 weeks for repeat imaging and further evaluation. -Follow-up on repeat blood culture secondary to recent hospitalization with sepsis and bacteremia. -Cepheid 4 Plex panel negative. Urine drug screen positive for opiates and marijuana. -Consult placed to PT/OT. -Obtain orthostatic vitals secondary to recurrent reports of falls. ESRD on hemodialysis, missed dialysis sessions outpatient High anion gap metabolic alkalosis Anemia of chronic disease, secondary to ESRD Hypochloremic Hyponatremia secondary to hypervolemia and fluid volume overload Elevated troponin, likely secondary to ESRD and missed dialysis Thrombocytopenia -Nephrology following and managing hemodialysis. Discussed case in detail with Dr. Elliott and patient to undergo dialysis again on Friday and be maintained on current dialysis schedule Friday/Friday/Fridays with continuation of Aranesp.. -Continue torsemide 100 mg daily. -Elevated troponin likely secondary to ESRD Insulin Dependent Diabetes mellitus with hyperglycemia -Patient disconnected home insulin pump and presented with hyperglycemia with blood glucoose of 603 morning blood glucose level improving to 272. Hyperglycemia was treated and patient placed on sliding scale. Continue with glycemic protocol and NovoLog sliding scale. Transaminitis -Worsening chronic transaminitis. Patient denies abdominal pain/discomfort and denies alcohol use/abuse, but does have questionable history. Alcohol level less than 10. CT abdomen and pelvis negative for acute process did revealed mild anasarca and trace ascites. -Caution with hepatotoxic medications. Continued close monitoring with repeat a.m. labs. Chronic systolic heart failure with a EF of 40%. -Patient to continue cardiac medication regimen with aspirin 81 mg daily, amlodipine 10 mg daily, atorvastatin 20 mg daily, carvedilol 25 mg twice daily, hydralazine 100 mg 3 times daily, valsartan 160 mg daily, isosorbide mononitrate 60 mg daily, clonidine patch weekly with dose of 0.1 mg every 24 hours, and torsemide 100 mg daily. -Patient also to be given midodrine 5 mg daily as needed for hypotension. Hypertension. -Continue medication regimen with amlodipine 10 mg daily,carvedilol 25 mg twice daily, hydralazine 100 mg 3 times daily, clonidine patch weekly with dose of 0.1 mg every 24 hours, and torsemide 100 mg daily. Hyperlipidemia. -Continue medication regimen with atorvastatin 20 mg daily. Data and imaging reviewed: Morning labs reviewed. CBC showing stable bicytopenia with hemoglobin of 8.3 and platelet count of 113. BMP showing sodium 129, potassium 4.0, chloride 94, bicarb 23, and anion gap of 12 with renal function showing BUN of 34, creatinine 4.32 and GFR 14. Blood glucose 268 this morning. Magnesium 2.0. Liver profile showing slight improvement of transaminitis with AST of 89, alkaline phosphatase of 338 and ALT of 114.. Vital signs reviewed. Blood pressure 180/83, heart rate 64, respiratory rate 18, temp 97.9 F, and SpO2 of 96% on room air. CODE STATUS: Full code DVT prophylaxis: Heparin Anticipated discharge date: Pending clinical course, awaiting evaluation by physical therapy as it is likely patient will require rehab placement on discharge. Anticipated discharge place: Pending clinical course Patient was seen independently by Nurse Pracitioner. This document was prepared using [employer] dictation software. Please allow for errors in cod clerk, while rare they do occur. Anton Salgado SHIRRING TENDER rendered care for this patient independently, reviewed the findings and plan as documented in the note above and agree with plan. I did not physically speak with or examine the patient on this date. Objective - Vital Signs Vital signs: Vital Signs Temp 97.6 F 07/24/24 03:15 Pulse 70 07/24/24 03:15 Resp 16 07/24/24 03:15 BP 148/75 07/24/24 03:15 Pulse Ox 94 L 07/24/24 03:15 FiO2 Intake & Output 07/23/24 07/24/24 07/24/24 18:59 06:59 18:59 Intake Total 960 Output Total 4500 Balance -3540 Weight 90.718 kg 89.4 kg Intake: IV 20 Invasive Line 1 20 Oral 540 Hemodialysis 400 Output: Urine 100 Hemodialysis 2400 Hemodialysis Net Amount 2000 Other: Voiding Method Urinal # Bowel Movements 1 - Labs CBC & Chem 7: 07/24/24 05:58 07/24/24 05:58 Labs: Abnormal Lab Results - Last 24 Hours (Table) 07/23/24 07/23/24 07/23/24 Range/Units 08:46 12:27 16:42 RBC (4.30-5.90) m/uL Hgb (13.0-17.5) gm/dL Hct (39.0-53.0) % MCHC (31.0-37.0) g/dL RDW (11.5-15.5) % Plt Count (150-450) k/uL Sodium (137-145) mmol/L Chloride (98-107) mmol/L BUN (9-20) mg/dL Creatinine (0.66-1.25) mg/dL Glucose (74-99) mg/dL POC Glucose (mg/dL) 330 H 295 H (70-110) mg/dL Calcium (8.4-10.2) mg/dL AST (17-59) U/L ALT (4-49) U/L Alkaline Phosphatase (38-126) U/L Troponin I 0.066 H* (0.000-0.034) ng/mL Albumin (3.5-5.0) g/dL Urine Opiates Screen (NotDetected) U Marijuana (THC) Screen (NotDetected) 07/23/24 07/23/24 07/23/24 Range/Units 17:21 21:21 21:49 RBC (4.30-5.90) m/uL Hgb (13.0-17.5) gm/dL Hct (39.0-53.0) % MCHC (31.0-37.0) g/dL RDW (11.5-15.5) % Plt Count (150-450) k/uL Sodium (137-145) mmol/L Chloride (98-107) mmol/L BUN (9-20) mg/dL Creatinine (0.66-1.25) mg/dL Glucose (74-99) mg/dL POC Glucose (mg/dL) 205 H 214 H (70-110) mg/dL Calcium (8.4-10.2) mg/dL AST (17-59) U/L ALT (4-49) U/L Alkaline Phosphatase (38-126) U/L Troponin I (0.000-0.034) ng/mL Albumin (3.5-5.0) g/dL Urine Opiates Screen Detected H (NotDetected) U Marijuana (THC) Screen Detected H (NotDetected) 07/24/24 07/24/24 07/24/24 Range/Units 05:46 05:58 05:58 RBC 2.75 L (4.30-5.90) m/uL Hgb 8.3 L (13.0-17.5) gm/dL Hct 26.7 L (39.0-53.0) % MCHC 30.9 L (31.0-37.0) g/dL RDW 20.5 H (11.5-15.5) % Plt Count 113 L (150-450) k/uL Sodium 129 L (137-145) mmol/L Chloride 94 L (98-107) mmol/L BUN 34 H (9-20) mg/dL Creatinine 4.32 H (0.66-1.25) mg/dL Glucose 268 H (74-99) mg/dL POC Glucose (mg/dL) 273 H (70-110) mg/dL Calcium 7.6 L (8.4-10.2) mg/dL AST 89 H (17-59) U/L ALT 114 H (4-49) U/L Alkaline Phosphatase 338 H (38-126) U/L Troponin I (0.000-0.034) ng/mL Albumin 2.7 L (3.5-5.0) g/dL Urine Opiates Screen (NotDetected) U Marijuana (THC) Screen (NotDetected)
[2024-07-24 16:34] LABS: Glucose,Whole Blood 292 mg/dL (70-110)
[2024-07-24 20:53] LABS: Glucose,Whole Blood 170 mg/dL (70-110)
[2024-07-25 06:04] LABS: Glucose,Whole Blood 280 mg/dL (70-110)
[2024-07-25 08:46] LABS: Anisocytosis Moderate; HCT 26.8 % (39.0-53.0); HGB 8.5 gm/dL (13.0-17.5); Hypochromasia Marked; MCH 30.6 pg (25.0-35.0); MCHC 31.7 g/dL (31.0-37.0); MCV 96.7 fL (80.0-100.0); Macrocytosis Slight; Platelet Count 117 k/uL (150-450); RBC 2.77 m/uL (4.30-5.90); RDW 20.8 % (11.5-15.5); WBC 4.3 k/uL (3.8-10.6)
[2024-07-25 08:58] LABS: ALT 89 U/L (4-49); AST 74 U/L (17-59); African American GFR (CKD) 12 (>60 ml/min/1.73 sqM); Albumin 2.6 g/dL (3.5-5.0); Alkaline Phosphatase 294 U/L (38-126); Anion Gap 13 mmol/L; Blood Urea Nitrogen 43 mg/dL (9-20); Calcium 7.7 mg/dL (8.4-10.2); Carbon Dioxide 22 mmol/L (22-30); Chloride 94 mmol/L (98-107); Glucose 244 mg/dL (74-99); Magnesium 2.1 mg/dL (1.6-2.3); Non-African American GFR(CKD) 10 (>60 ml/min/1.73 sqM); Potassium 3.9 mmol/L (3.5-5.1); Sodium 129 mmol/L (137-145); Total Bilirubin 0.7 mg/dL (0.2-1.3); Total Protein 6.5 g/dL (6.3-8.2)
--- NOTE | 2024-07-25 09:34 | P.PN ---
Subjective Progress Note Date: 07/25/24 Principal diagnosis: Fracture left little toe. Status post fall. This is a 58-year-old male who had a fall 2 days ago and sustained injury to his left foot. The patient has multiple medical comorbidities and does have chronic swelling to the lower extremities and is a patient at the wound care center. When he fell he noticed soreness to his little toe on the left foot. We are consulted for orthopedic evaluation. 07/25/2024: The patient has received his rigid postop shoe and is wearing it. He has no new complaints or concerns today. Vital signs are stable. Objective - Vital Signs Vital signs: Vital Signs Temp 97.8 F 07/25/24 08:00 Pulse 63 07/25/24 08:00 Resp 16 07/25/24 08:00 BP 158/73 07/25/24 08:00 Pulse Ox 96 07/25/24 08:00 FiO2 Intake & Output 07/24/24 07/25/24 07/25/24 18:59 06:59 18:59 Intake Total 320 10 Output Total 0 Balance 320 10 Weight 54 kg Intake: IV 20 10 Invasive Line 1 20 10 Oral 300 Output: Urine 0 Other: Voiding Method Urinal Urinal # Voids 0 1 # Bowel Movements 0 - Exam This is a pleasant 58-year-old male in no acute distress. He is alert and oriented x 3. Exam of the lower extremities reveals that his postop shoe is in place. He has toe motion with mild pain to the fifth toe. Neurovascular status to the lower extremity is intact. - Labs CBC & Chem 7: 07/25/24 08:12 07/25/24 08:12 Labs: Abnormal Lab Results - Last 24 Hours (Table) 07/24/24 07/24/24 07/24/24 Range/Units 11:34 16:32 20:51 RBC (4.30-5.90) m/uL Hgb (13.0-17.5) gm/dL Hct (39.0-53.0) % RDW (11.5-15.5) % Plt Count (150-450) k/uL Sodium (137-145) mmol/L Chloride (98-107) mmol/L BUN (9-20) mg/dL Creatinine (0.66-1.25) mg/dL Glucose (74-99) mg/dL POC Glucose (mg/dL) 329 H 292 H 170 H (70-110) mg/dL Calcium (8.4-10.2) mg/dL AST (17-59) U/L ALT (4-49) U/L Alkaline Phosphatase (38-126) U/L Albumin (3.5-5.0) g/dL 07/25/24 07/25/24 07/25/24 Range/Units 06:03 08:12 08:12 RBC 2.77 L (4.30-5.90) m/uL Hgb 8.5 L (13.0-17.5) gm/dL Hct 26.8 L (39.0-53.0) % RDW 20.8 H (11.5-15.5) % Plt Count 117 L (150-450) k/uL Sodium 129 L (137-145) mmol/L Chloride 94 L (98-107) mmol/L BUN 43 H (9-20) mg/dL Creatinine 5.55 H (0.66-1.25) mg/dL Glucose 244 H (74-99) mg/dL POC Glucose (mg/dL) 280 H (70-110) mg/dL Calcium 7.7 L (8.4-10.2) mg/dL AST 74 H (17-59) U/L ALT 89 H (4-49) U/L Alkaline Phosphatase 294 H (38-126) U/L Albumin 2.6 L (3.5-5.0) g/dL Assessment and Plan (1) Toe fracture, left Current Visit: Yes Status: Acute Code(s): S92.912A - UNSP FRACTURE OF LEFT TOE(S), INIT FOR CLOS FX SNOMED Code(s): 19019707 (2) Weakness Current Visit: Yes Status: Acute Code(s): R53.1 - WEAKNESS SNOMED Code(s): 91296730 Plan: The clinical and x-ray findings are discussed with the patient. He will continue local wound care per the wound care nurse. I advised that a dressing be placed between the toes. He may follow-up in our office in 3 to 4 weeks for further evaluation and x-ray. agree with the above evaluation and plan. Endy San MD
--- NOTE | 2024-07-25 10:10 | P.PN ---
Subjective Patient is seen in follow-up for end-stage renal disease. No active complaints. Blood pressure stable this morning. Feels better today. Using walker to walk to the bathroom. Vital signs are stable. General: No acute distress. HEENT: Head exam is unremarkable. LUNGS: No audible rhonchi or wheezes. HEART: Rate and Rhythm are regular. ABDOMEN: Nontender. EXTREMITITES: No edema. Chronic changes noted. No drainage. Objective - Vital Signs Vital signs: Vital Signs Temp 97.8 F 07/25/24 08:00 Pulse 63 07/25/24 08:00 Resp 16 07/25/24 08:00 BP 158/73 07/25/24 08:00 Pulse Ox 96 07/25/24 08:00 FiO2 Intake & Output 07/24/24 07/25/24 07/25/24 18:59 06:59 18:59 Intake Total 320 10 Output Total 0 Balance 320 10 Weight 54 kg Intake: IV 20 10 Invasive Line 1 20 10 Oral 300 Output: Urine 0 Other: Voiding Method Urinal Urinal # Voids 0 1 # Bowel Movements 0 - Labs CBC & Chem 7: 07/25/24 08:12 07/25/24 08:12 Labs: Abnormal Lab Results - Last 24 Hours (Table) 07/24/24 07/24/24 07/24/24 Range/Units 11:34 16:32 20:51 RBC (4.30-5.90) m/uL Hgb (13.0-17.5) gm/dL Hct (39.0-53.0) % RDW (11.5-15.5) % Plt Count (150-450) k/uL Sodium (137-145) mmol/L Chloride (98-107) mmol/L BUN (9-20) mg/dL Creatinine (0.66-1.25) mg/dL Glucose (74-99) mg/dL POC Glucose (mg/dL) 329 H 292 H 170 H (70-110) mg/dL Calcium (8.4-10.2) mg/dL AST (17-59) U/L ALT (4-49) U/L Alkaline Phosphatase (38-126) U/L Albumin (3.5-5.0) g/dL 07/25/24 07/25/24 07/25/24 Range/Units 06:03 08:12 08:12 RBC 2.77 L (4.30-5.90) m/uL Hgb 8.5 L (13.0-17.5) gm/dL Hct 26.8 L (39.0-53.0) % RDW 20.8 H (11.5-15.5) % Plt Count 117 L (150-450) k/uL Sodium 129 L (137-145) mmol/L Chloride 94 L (98-107) mmol/L BUN 43 H (9-20) mg/dL Creatinine 5.55 H (0.66-1.25) mg/dL Glucose 244 H (74-99) mg/dL POC Glucose (mg/dL) 280 H (70-110) mg/dL Calcium 7.7 L (8.4-10.2) mg/dL AST 74 H (17-59) U/L ALT 89 H (4-49) U/L Alkaline Phosphatase 294 H (38-126) U/L Albumin 2.6 L (3.5-5.0) g/dL Assessment and Plan Plan: Assessment: 1. End-stage renal disease maintained on hemodialysis on Friday schedule. 2. Hypertension with chronic kidney disease. 3. Volume overload. Improved with ultrafiltration. 4. Chronic kidney disease mineral bone disease maintained on PhosLo. 5. Anemia of chronic kidney disease maintained on Aranesp. 6. Diabetes mellitus. Plan: Hemodialysis Friday. Orthostatics negative. Blood glucose control.
[2024-07-25 11:12] LABS: Glucose,Whole Blood 255 mg/dL (70-110)
--- NOTE | 2024-07-25 13:59 | P.PN ---
Subjective Progress Note Date: 07/25/24 Hospital course: Patient is a very pleasant 58-year-old male with a past medical history of ESRD on hemodialysis, chronic systolic heart failure with EF of 40%, moderate pulmonary hypertension, hypertension, hyperlipidemia, and insulin-dependent diabetes mellitus on insulin pump. Presented to the emergency department with a chief complaint of generalized weakness and recurrent falls at home. Patient reports in addition he is also missed 2 sessions of hemodialysis secondary to the holiday and overall not feeling well due to weakness and fatigue the past f ew days. Patient reports multiple falls at home and on ground outside. He states injury to his left foot as well. Patient recently underwent hospitalization from 05/25/2024 through 06/01/2024 secondary to sepsis resulting from group A strep bacteremia and infected diabetic ulcer of right heel course of outpatient IV antibiotics. On arrival to our facility, patient underwent evaluation in the emergency department. Vital signs upon arrival show blood pressure 180/79, heart rate 67, respiratory rate 18, temp 97.9 F, and SpO2 of 96% on room air. Chest x-ray completed negative for acute cardiopulmonary process revealing cardiomegaly. X-ray of pelvis negative for acute process. CT chest abdomen and pelvis negative for acute process showing severe arthrosclerosis of the arterial vasculature and cardiomegaly with trace ascites and anasarca. CT head negative for acute intracranial process. CT cervical spine showing mild multilevel degenerative disc disease with no evidence of cervical spine fracture. X-ray left foot showing cortical irregularity involving the proximal phalanx of the left fifth digit concerning for possible fracture and severe atherosclerosis of the arterial vasculature. Labs were completed and reviewed. CBC showing bicytopenia with hemoglobin of 9.0 and platelet count of 139. Coagulation profile showing elevated PT of 14.9 and INR 1.4. BMP showing hyponatremia with sodium of 128, hypochloremia with chloride of 91, bicarb of 18, and elevated anion gap of 19. Renal function showing BUN of 50, creatinine of 5.62, and GFR of 10. Blood glucose initially 603. Lactic acid was 1.3. Liver profile showing transaminitis with AST of 120, ALT of 139, and alkaline phosphatase of 393. Troponin was 0.097. Serum alcohol level was negative and acetone also negative. Physical exam: Patient seen and fully evaluated at bedside. He reports continued feeling of being very tired and weak. He states he did sleep well last night and has been napping on and off all morning. He denies any other complaints at this time. Vital signs reviewed and stable. General: Nontoxic, no distress and appears stated age. Derm: Skin warm and dry, normal coloration for ethnicity. Diabetic ulcer right heel, no drainage noted. Head: Atraumatic, normocephalic and symmetric. Eyes: EOM's intact, no lid lag, and anicteric sclera Mouth: no lip lesions, mucus membranes moist Cardiovascular: regular rate and rhythm with normal S1S2, systolic murmur, positive posterior tibial pulses bilaterally, and cap refill < 2 seconds. AV f istula left upper extremity with bruit and thrill present. Permacath in place left anterior chest. Lungs: Respirations even, regular, and unlabored on room air. Lungs CTA bilaterally, no rhonchi, no rales, no wheezing, and no accessory muscle usage. Abdominal: soft, nontender to palpation, no guarding, no appreciable organomegaly Ext: ROM intact. No gross muscle atrophy, 1-2+ pitting bilateral lower extremity edema, no contractures Neuro: Speech clear, face symmetrical and CN II-XII grossly intact with no noted focal neuro deficits Psych: Alert and oriented to person, place, time, and situation. Appropriate and pleasant affect. Assessment and Plan of Care: Generalized weakness and recurrent falls at home, multifactorial secondary to sickle deconditioning from recent hospitalization for sepsis along with missed dialysis sessions and multiple comorbidities. Fracture of proximal phalanx of left fifth digit -Fall precautions in place. -Orthopedic surgery evaluated and discussed plan of care in detail with orthopedic PA stating patient will require rigid soled postop shoe to left foot with a dressing be placed between the toes to prevent irritation and for patient to follow-up in their office in 3 to 4 weeks for repeat imaging and further evaluation. -Follow-up on repeat blood culture secondary to recent hospitalization with sepsis and bacteremia. -Cepheid 4 Plex panel negative. Urine drug screen positive for opiates and marijuana. -Consult placed to PT/OT. -Orthostatic vitals negative for orthostatic hypotension. ESRD on hemodialysis, missed dialysis sessions outpatient High anion gap metabolic alkalosis Anemia of chronic disease, secondary to ESRD Hypochloremic Hyponatremia secondary to hypervolemia and fluid volume overload Elevated troponin, likely secondary to ESRD and missed dialysis Thrombocytopenia -Nephrology following and managing hemodialysis. Discussed case in detail with Dr. Elliott and patient to undergo dialysis again on Friday and be maintained on current dialysis schedule Friday/Friday/Fridays with continuation of Car[facility] juan.. -Continue torsemide 100 mg daily. -Elevated troponin likely secondary to ESRD Insulin Dependent Diabetes mellitus with hyperglycemia -Patient disconnected home insulin pump and presented with hyperglycemia with blood glucoose of 603 morning blood glucose level improving to 244. Continue with glycemic protocol and NovoLog sliding scale. Transaminitis -Worsening chronic transaminitis. Patient denies abdominal pain/discomfort and denies alcohol use/abuse, but does have questionable history. Alcohol level less than 10. CT abdomen and pelvis negative for acute process did revealed mild anasarca and trace ascites. -Caution with hepatotoxic medications. Continued close monitoring with repeat a.m. labs. Chronic systolic heart failure with a EF of 40%. -Patient to continue cardiac medication regimen with aspirin 81 mg daily, amlodipine 10 mg daily, atorvastatin 20 mg daily, carvedilol 25 mg twice daily, hydralazine 100 mg 3 times daily, valsartan 160 mg daily, isosorbide mononitrate 60 mg daily, clonidine patch weekly with dose of 0.1 mg every 24 hours, and torsemide 100 mg daily. -Patient also to be given midodrine 5 mg daily as needed for hypotension. Hypertension. -Continue medication regimen with amlodipine 10 mg daily,carvedilol 25 mg twice daily, hydralazine 100 mg 3 times daily, clonidine patch weekly with dose of 0.1 mg every 24 hours, and torsemide 100 mg daily. Hyperlipidemia. -Continue medication regimen with atorvastatin 20 mg daily. Data and imaging reviewed: Morning labs reviewed. CBC showing stable bicytopenia with hemoglobin of 8.5 and platelet count of 117. Hyponatremia with sodium of 129, hypochloremia with chloride of 94 and renal function with BUN of 43, creatinine 5.55, GFR of 10. Blood glucose 244, magnesium 2.1. Liver profile showing AST 74, ALT of 89, and alkaline phosphatase of 294. Vital signs reviewed. Blood pressure 158/73, heart rate 63, respiratory rate 16, temp 97.8 F, and SpO2 of 96% on room air. CODE STATUS: Full code DVT prophylaxis: Heparin Anticipated discharge date: Pending clinical course, awaiting evaluation by physical therapy as it is likely patient will require rehab placement on discharge. Anticipated discharge place: Pending clinical course Patient was seen independently by Nurse Pracitioner. This document was prepared using [employer] dictation software. Please allow for errors in colleter, while rare they do occur. Anton Salgado SENIOR CYBER INTELLIGENCE ANALYST rendered care for this patient independently, reviewed the findings and plan as documented in the note above and agree with plan. I did not physically speak with or examine the patient on this date. . Objective - Vital Signs Vital signs: Vital Signs Temp 97.6 F 07/25/24 04:30 Pulse 67 07/25/24 04:30 Resp 18 07/25/24 04:30 BP 154/74 07/25/24 04:30 Pulse Ox 94 L 07/25/24 04:30 FiO2 Intake & Output 07/24/24 07/25/24 07/25/24 18:59 06:59 18:59 Intake Total 320 10 Output Total 0 Balance 320 10 Weight 54 kg Intake: IV 20 10 Invasive Line 1 20 10 Oral 300 Output: Urine 0 Other: Voiding Method Urinal Urinal # Voids 0 1 # Bowel Movements 0 - Labs CBC & Chem 7: 07/25/24 08:12 07/25/24 08:12 Labs: Abnormal Lab Results - Last 24 Hours (Table) 07/24/24 07/24/24 07/24/24 Range/Units 11:34 16:32 20:51 POC Glucose (mg/dL) 329 H 292 H 170 H (70-110) mg/dL 07/25/24 Range/Units 06:03 POC Glucose (mg/dL) 280 H (70-110) mg/dL
[2024-07-25 16:19] LABS: Glucose,Whole Blood 207 mg/dL (70-110)
[2024-07-25 20:13] LABS: Glucose,Whole Blood 180 mg/dL (70-110)
[2024-07-26 06:01] LABS: Glucose,Whole Blood 244 mg/dL (70-110)
[2024-07-26 07:13] LABS: Anisocytosis Moderate; HCT 28.5 % (39.0-53.0); HGB 8.6 gm/dL (13.0-17.5); Hypochromasia Marked; MCH 29.4 pg (25.0-35.0); MCHC 30.1 g/dL (31.0-37.0); MCV 97.6 fL (80.0-100.0); Macrocytosis Moderate; Mean Platelet Volume 8.6; Platelet Count 129 k/uL (150-450); RBC 2.92 m/uL (4.30-5.90); RDW 20.7 % (11.5-15.5); WBC 4.4 k/uL (3.8-10.6)
[2024-07-26 07:34] LABS: ALT 90 U/L (4-49); AST 56 U/L (17-59); African American GFR (CKD) 10 (>60 ml/min/1.73 sqM); Alkaline Phosphatase 335 U/L (38-126); Anion Gap 17 mmol/L; Blood Urea Nitrogen 49 mg/dL (9-20); Calcium 8.2 mg/dL (8.4-10.2); Carbon Dioxide 19 mmol/L (22-30); Chloride 91 mmol/L (98-107); Glucose 271 mg/dL (74-99); Magnesium 2.2 mg/dL (1.6-2.3); Non-African American GFR(CKD) 9 (>60 ml/min/1.73 sqM); Potassium 4.6 mmol/L (3.5-5.1); Sodium 127 mmol/L (137-145); Total Bilirubin 0.9 mg/dL (0.2-1.3); Total Protein 7.1 g/dL (6.3-8.2)
[2024-07-26 10:38] VITALS: BMI 15.3
[2024-07-26 11:31] LABS: Glucose,Whole Blood 187 mg/dL (70-110)
--- NOTE | 2024-07-26 12:26 | P.PN ---
Subjective Patient is seen for follow-up for end-stage renal disease. Currently seen on hemodialysis. Overall feeling better. No significant complaints today. Objective - Vital Signs Vital signs: Vital Signs Temp 98.0 F 07/26/24 08:00 Pulse 63 07/26/24 11:18 Resp 16 07/26/24 08:00 BP 155/77 07/26/24 11:18 Pulse Ox 97 07/26/24 08:00 FiO2 Intake & Output 07/25/24 07/26/24 07/26/24 18:59 06:59 18:59 Intake Total 1406 490 0 Balance 1406 490 0 Weight 54.2 kg 54.2 kg Intake: IV 10 Invasive Line 1 10 Oral 1406 480 0 Other: Voiding Method Urinal Urinal Urinal # Voids 1 - Exam Patient is awake, comfortable, no acute distress. Alert oriented x 3 Examination of the heart S1 and S2 Examination of the lungs bilateral breath sounds are heard Abdomen soft nontender Examination of lower extremities shows chronic skin changes with chronic edema and multiple superficial ulcers - Labs CBC & Chem 7: 07/26/24 06:43 07/26/24 06:43 Labs: Abnormal Lab Results - Last 24 Hours (Table) 07/25/24 07/25/24 07/26/24 Range/Units 16:17 20:10 06:00 RBC (4.30-5.90) m/uL Hgb (13.0-17.5) gm/dL Hct (39.0-53.0) % MCHC (31.0-37.0) g/dL RDW (11.5-15.5) % Plt Count (150-450) k/uL Sodium (137-145) mmol/L Chloride (98-107) mmol/L Carbon Dioxide (22-30) mmol/L BUN (9-20) mg/dL Creatinine (0.66-1.25) mg/dL Glucose (74-99) mg/dL POC Glucose (mg/dL) 207 H 180 H 244 H (70-110) mg/dL Calcium (8.4-10.2) mg/dL ALT (4-49) U/L Alkaline Phosphatase (38-126) U/L Albumin (3.5-5.0) g/dL 07/26/24 07/26/24 07/26/24 Range/Units 06:43 06:43 11:28 RBC 2.92 L (4.30-5.90) m/uL Hgb 8.6 L (13.0-17.5) gm/dL Hct 28.5 L (39.0-53.0) % MCHC 30.1 L (31.0-37.0) g/dL RDW 20.7 H (11.5-15.5) % Plt Count 129 L (150-450) k/uL Sodium 127 L (137-145) mmol/L Chloride 91 L (98-107) mmol/L Carbon Dioxide 19 L (22-30) mmol/L BUN 49 H (9-20) mg/dL Creatinine 6.59 H (0.66-1.25) mg/dL Glucose 271 H (74-99) mg/dL POC Glucose (mg/dL) 187 H (70-110) mg/dL Calcium 8.2 L (8.4-10.2) mg/dL ALT 90 H (4-49) U/L Alkaline Phosphatase 335 H (38-126) U/L Albumin 3.0 L (3.5-5.0) g/dL Microbiology - Last 24 Hours (Table) 07/24/24 07:17 Blood Culture - Preliminary Blood Assessment and Plan Assessment: 1. End-stage renal disease on hemodialysis on Friday schedule via permacat 2. Anemia of chronic disease 3. Uncontrolled hypertension, partly volume sensitive 4. CKD mineral bone disorder Plan: Hemodialysis today, increase UF as tolerated. Okay for discharge from nephrology standpoint post hemodialysis. Dry weight will be adjusted as outpatient.
--- NOTE | 2024-07-26 12:41 | P.PN ---
Subjective Progress Note Date: 07/26/24 Hospital course: Patient is a very pleasant 58-year-old male with a past medical history of ESRD on hemodialysis, chronic systolic heart failure with EF of 40%, moderate pulmonary hypertension, hypertension, hyperlipidemia, and insulin-dependent diabetes mellitus on insulin pump. Presented to the emergency department with a chief complaint of generalized weakness and recurrent falls at home. Patient reports in addition he is also missed 2 sessions of hemodialysis secondary to the holiday and overall not feeling well due to weakness and fatigue the past f ew days. Patient reports multiple falls at home and on ground outside. He states injury to his left foot as well. Patient recently underwent hospitalization from 05/25/2024 through 06/01/2024 secondary to sepsis resulting from group A strep bacteremia and infected diabetic ulcer of right heel course of outpatient IV antibiotics. On arrival to our facility, patient underwent evaluation in the emergency department. Vital signs upon arrival show blood pressure 180/79, heart rate 67, respiratory rate 18, temp 97.9 F, and SpO2 of 96% on room air. Chest x-ray completed negative for acute cardiopulmonary process revealing cardiomegaly. X-ray of pelvis negative for acute process. CT chest abdomen and pelvis negative for acute process showing severe arthrosclerosis of the arterial vasculature and cardiomegaly with trace ascites and anasarca. CT head negative for acute intracranial process. CT cervical spine showing mild multilevel degenerative disc disease with no evidence of cervical spine fracture. X-ray left foot showing cortical irregularity involving the proximal phalanx of the left fifth digit concerning for possible fracture and severe atherosclerosis of the arterial vasculature. Labs were completed and reviewed. CBC showing bicytopenia with hemoglobin of 9.0 and platelet count of 139. Coagulation profile showing elevated PT of 14.9 and INR 1.4. BMP showing hyponatremia with sodium of 128, hypochloremia with chloride of 91, bicarb of 18, and elevated anion gap of 19. Renal function showing BUN of 50, creatinine of 5.62, and GFR of 10. Blood glucose initially 603. Lactic acid was 1.3. Liver profile showing transaminitis with AST of 120, ALT of 139, and alkaline phosphatase of 393. Troponin was 0.097. Serum alcohol level was negative and acetone also negative. Physical exam: Patient seen and fully evaluated at bedside. Patient appears to be resting comfortably with no signs of acute distress. He is currently undergoing dialysis and denies any other complaints at this time. Vital signs reviewed and stable. General: Nontoxic, no distress and appears stated age. Derm: Skin warm and dry, normal coloration for ethnicity. Diabetic ulcer right heel, no drainage noted. Head: Atraumatic, normocephalic and symmetric. Eyes: EOM's intact, no lid lag, and anicteric sclera Mouth: no lip lesions, mucus membranes moist Cardiovascular: regular rate and rhythm with normal S1S2, systolic murmur, positive posterior tibial pulses bilaterally, and cap refill < 2 seconds[address] AV fistula left upper extremity with bruit and thrill present. Permacath in place left anterior chest. Lungs: Respirations even, regular, and unlabored on room air. Lungs CTA bilaterally, no rhonchi, no rales, no wheezing, and no accessory muscle usage. Abdominal: soft, nontender to palpation, no guarding, no appreciable organomeg hiram Ext: ROM intact. No gross muscle atrophy, 1-2+ pitting bilateral lower extremity edema, no contractures Neuro: Speech clear, face symmetrical and CN II-XII grossly intact with no noted focal neuro deficits Psych: Alert and oriented to person, place, time, and situation. Appropriate and pleasant affect. Assessment and Plan of Care: Generalized weakness and recurrent falls at home, multifactorial secondary to sickle deconditioning from recent hospitalization for sepsis along with missed dialysis sessions and multiple comorbidities. Fracture of proximal phalanx of left fifth digit -Fall precautions in place. -Orthopedic surgery evaluated and discussed plan of care in detail with orthopedic PA stating patient will require rigid soled postop shoe to left foot with a dressing be placed between the toes to prevent irritation and for patient to follow-up in their office in 3 to 4 weeks for repeat imaging and further evaluation. -Follow-up on repeat blood culture secondary to recent hospitalization with sepsis and bacteremia. -Cepheid 4 Plex panel negative. Urine drug screen positive for opiates and m arijuana. -Consult placed to PT/OT. -Orthostatic vitals negative for orthostatic hypotension. ESRD on hemodialysis, missed dialysis sessions outpatient High anion gap metabolic alkalosis Anemia of chronic disease, secondary to ESRD Hypochloremic Hyponatremia secondary to hypervolemia and fluid volume overload Elevated troponin, likely secondary to ESRD and missed dialysis Thrombocytopenia -Nephrology following and managing hemodialysis. Discussed case with Dr. Shaffer and patient to undergo dialysis again today and be maintained on current dialysis schedule Friday/Friday/Fridays with continuation of Aranesp.. -Continue torsemide 100 mg daily. -Elevated troponin likely secondary to ESRD Insulin Dependent Diabetes mellitus with hyperglycemia -Patient disconnected home insulin pump and presented with hyperglycemia with blood glucoose of 603 morning blood glucose level improving to 244. Continue with glycemic protocol and NovoLog sliding scale. Transaminitis -Worsening chronic transaminitis. Patient denies abdominal pain/discomfort and denies alcohol use/abuse, but does have questionable history. Alcohol level less than 10. CT abdomen and pelvis negative for acute process did revealed mild anasarca and trace ascites. -Caution with hepatotoxic medications. Continued close monitoring with repeat a.m. labs. Chronic systolic heart failure with a EF of 40%. -Patient to continue cardiac medication regimen with aspirin 81 mg daily, amlodipine 10 mg daily, atorvastatin 20 mg daily, carvedilol 25 mg twice daily, hydralazine 100 mg 3 times daily, valsartan 160 mg daily, isosorbide mononitrate 60 mg daily, clonidine patch weekly with dose of 0.1 mg every 24 hours, and torsemide 100 mg daily. -Patient also to be given midodrine 5 mg daily as needed for hypotension. Hypertension. -Continue medication regimen with amlodipine 10 mg daily,carvedilol 25 mg twice daily, hydralazine 100 mg 3 times daily, clonidine patch weekly with dose of 0.1 mg every 24 hours, and torsemide 100 mg daily. Hyperlipidemia. -Continue medication regimen with atorvastatin 20 mg daily. Data and imaging reviewed: Morning labs reviewed. CBC showing continued but stable bicytopenia with hemoglobin of 8.6 and platelet count of 129. BMP showing hyponatremia with sodium of 127 and high anion gap metabolic alkalosis with chloride of 91, bicarb of 19, and anion gap of 17. Renal function showing BUN of 49, creatinine 6.59, GFR of 9. Blood glucose 187. Magnesium 2.2. Liver profile showing elevated note AST of 56, ALT of 98, alkaline phosphatase of 335. Vital signs reviewed. Blood pressure 133/68, heart rate 65, respiratory rate 16, temp 98.0 F, and SpO2 of 97% on room air. CODE STATUS: Full code DVT prophylaxis: Heparin Anticipated discharge date: Pending evaluation by physical therapy as it is likely patient will require rehab placement on discharge. Anticipated discharge place: Pending clinical course Patient was seen independently by Nurse Pracitioner. This document was prepared using [employer] dictation software. Please allow for er rors in credit card analyst, while rare they do occur. Anton Salgado PHARMACY STUDENT rendered care for this patient independently, reviewed the findings and plan as documented in the note above and agree with plan. I did not physically speak with or examine the patient on this date. . Objective - Vital Signs Vital signs: Vital Signs Temp 97.6 F 07/26/24 03:55 Pulse 66 07/26/24 03:55 Resp 16 07/26/24 03:55 BP 144/72 07/26/24 03:55 Pulse Ox 98 07/26/24 03:55 FiO2 Intake & Output 07/25/24 07/26/24 07/26/24 18:59 06:59 18:59 Intake Total 1406 490 0 Balance 1406 490 0 Weight 54.2 kg Intake: IV 10 Invasive Line 1 10 Oral 1406 480 0 Other: Voiding Method Urinal Urinal # Voids 1 - Labs CBC & Chem 7: 07/26/24 06:43 07/26/24 06:43 Labs: Abnormal Lab Results - Last 24 Hours (Table) 07/25/24 07/25/24 07/25/24 Range/Units 08:12 11:11 16:17 RBC (4.30-5.90) m/uL Hgb (13.0-17.5) gm/dL Hct (39.0-53.0) % MCHC (31.0-37.0) g/dL RDW (11.5-15.5) % Plt Count (150-450) k/uL Sodium 129 L (137-145) mmol/L Chloride 94 L (98-107) mmol/L Carbon Dioxide (22-30) mmol/L BUN 43 H (9-20) mg/dL Creatinine 5.55 H (0.66-1.25) mg/dL Glucose 244 H (74-99) mg/dL POC Glucose (mg/dL) 255 H 207 H (70-110) mg/dL Calcium 7.7 L (8.4-10.2) mg/dL AST 74 H (17-59) U/L ALT 89 H (4-49) U/L Alkaline Phosphatase 294 H (38-126) U/L Albumin 2.6 L (3.5-5.0) g/dL 07/25/24 07/26/24 07/26/24 Range/Units 20:10 06:00 06:43 RBC 2.92 L (4.30-5.90) m/uL Hgb 8.6 L (13.0-17.5) gm/dL Hct 28.5 L (39.0-53.0) % MCHC 30.1 L (31.0-37.0) g/dL RDW 20.7 H (11.5-15.5) % Plt Count 129 L (150-450) k/uL Sodium (137-145) mmol/L Chloride (98-107) mmol/L Carbon Dioxide (22-30) mmol/L BUN (9-20) mg/dL Creatinine (0.66-1.25) mg/dL Glucose (74-99) mg/dL POC Glucose (mg/dL) 180 H 244 H (70-110) mg/dL Calcium (8.4-10.2) mg/dL AST (17-59) U/L ALT (4-49) U/L Alkaline Phosphatase (38-126) U/L Albumin (3.5-5.0) g/dL 07/26/24 Range/Units 06:43 RBC (4.30-5.90) m/uL Hgb (13.0-17.5) gm/dL Hct (39.0-53.0) % MCHC (31.0-37.0) g/dL RDW (11.5-15.5) % Plt Count (150-450) k/uL Sodium 127 L (137-145) mmol/L Chloride 91 L (98-107) mmol/L Carbon Dioxide 19 L (22-30) mmol/L BUN 49 H (9-20) mg/dL Creatinine 6.59 H (0.66-1.25) mg/dL Glucose 271 H (74-99) mg/dL POC Glucose (mg/dL) (70-110) mg/dL Calcium 8.2 L (8.4-10.2) mg/dL AST (17-59) U/L ALT 90 H (4-49) U/L Alkaline Phosphatase 335 H (38-126) U/L Albumin 3.0 L (3.5-5.0) g/dL Microbiology - Last 24 Hours (Table) 07/24/24 07:17 Blood Culture - Preliminary Blood
[2024-07-26 16:28] LABS: Glucose,Whole Blood 216 mg/dL (70-110)
[2024-07-27 07:07] LABS: Glucose,Whole Blood 443 mg/dL (70-110)
[2024-07-27 07:25] LABS: Anisocytosis Moderate; HCT 28.8 % (39.0-53.0); HGB 8.5 gm/dL (13.0-17.5); Hypochromasia Marked; MCHC 29.5 g/dL (31.0-37.0); MCV 101.8 fL (80.0-100.0); Macrocytosis Moderate; Mean Platelet Volume 8.3; RBC 2.83 m/uL (4.30-5.90); RDW 21.1 % (11.5-15.5)
[2024-07-27 07:40] LABS: ALT 79 U/L (4-49); AST 37 U/L (17-59); African American GFR (CKD) 14 (>60 ml/min/1.73 sqM); Albumin 2.9 g/dL (3.5-5.0); Alkaline Phosphatase 301 U/L (38-126); Anion Gap 16 mmol/L; Blood Urea Nitrogen 38 mg/dL (9-20); Calcium 7.9 mg/dL (8.4-10.2); Carbon Dioxide 21 mmol/L (22-30); Chloride 92 mmol/L (98-107); Glucose 426 mg/dL (74-99); Magnesium 2.1 mg/dL (1.6-2.3); Non-African American GFR(CKD) 12 (>60 ml/min/1.73 sqM); Potassium 4.2 mmol/L (3.5-5.1); Sodium 129 mmol/L (137-145); Total Bilirubin 0.9 mg/dL (0.2-1.3); Total Protein 6.8 g/dL (6.3-8.2)
[2024-07-27] MEDS: Insulin Aspart (For Pump) 100 UNIT/ML VIAL SQ-PUMP SCH (08:23)
[2024-07-27 09:10] LABS: Platelet Count 93 k/uL (150-450); WBC 3.2 k/uL (3.8-10.6)
--- NOTE | 2024-07-27 10:40 | P.CONS ---
History of Present Illness - Reason for Consult Consult date: 07/27/24 wound care - History of Present Illness This is a 58-year-old patient known to the wound care center he is on dialysis with a nonpressure chronic wound of the right heel with fat layer exposed. He has been following in the wound care center. Original cause of wound was Gradually Appeared. The date acquired was: 05/03/2024. The wound has been in treatment 9 weeks. The wound is currently classified as a Grade 3 wound with etiology of Diabetic Wound/Ulcer of the Lower Extremity and is located on the Right,Plantar Calcaneus. The wound measures 3.2cm length x 2.8cm width x 0.1cm depth; 7.037cm^2 area and 0.704cm^3 volume. There is Fat Layer (Subcutaneous Tissue) exposed. There is no tunneling or undermining noted. There is a medium amount of serosanguineous drainage noted. The wound margin is distinct with the outline attached to the wound base. There is medium (34-66%) pink granulation within the wound bed. There is a medium (34-66%) amount of necrotic tissue within the wound bed. The periwound skin appearance exhibited: Callus, Dry/Scaly, Ecchymosis, Erythema. The periwound skin appearance did not exhibit: Crepitus, Excoriation, Induration, Rash, Scarring, Maceration, Atrophie [place], Cyanosis, Hemosiderin Staining, Mottled, Rubor. The surrounding wound skin color is noted with erythema which is circumferential. Periwound temperature was noted as No Abnormality. Review Of Systems: Constitutional: No fever, no chills, no night sweats. No weight change. No weakness, fatigue or lethargy. No daytime sleepiness. Integumentary:reports wounds, no lesions. No rash or pruritus. No unusual bruising. No change in hair or nails. Physical exam: General Appearance: Alert, cooperative, no distress, appears stated age. Skin: See HPI all other Skin color, texture, tugor normal, no rashes or lesions. Neurologic: Alert oriented x3 Assessment: 1. 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 Diabetes with with foot ulceration Plan: 1. Apply absorptive silver, saline moist gauze, dry gauze, rolled gauze and secure with paper tape. Continue to offload. Patient will return to the wound care center on August 02 at 1045. Thank for the consultation any questions please contact the wound care center DNP note has been reviewed and discussed with Dr. Garcia and the impression and plan of care has been directed as dictated. Past Medical History Past Medical History: Diabetes Mellitus, Dialysis, Renal Disease, Hypertension, Renal Disease Additional Past Medical History / Comment(s): IDDM type I on insulin pump, DKA, chronic kidney disease, bilateral lower extremity edema. HD on MWF History of Any Multi-Drug Resistant Organisms: None Reported Past Surgical History: No Surgical Hx Reported Additional Past Surgical History / Comment(s): R knee arthroscopy, circumcism, HD cath in chest Past Anesthesia/Blood Transfusion Reactions: No Reported Reaction Past Psychological History: No Psychological Hx Reported Additional Psychological History / Comment(s): Pt resides with his spouse. He is independent. Smoking Status: Former smoker Past Alcohol Use History: None Reported Additional Past Alcohol Use History / Comment(s): Pt started smoking in 1985 and quit 07/25/20 Past Drug Use History: None Reported Additional Drug Use History / Comment(s): emi perez - Past Family History Mother History Unknown: Yes Family Medical History: COPD Father Family Medical History: No Reported History Additional Family Medical History / Comment(s): Mother is healthy. Medications and Allergies Home Medications Medication Instructions Recorded Confirmed Type Insulin Aspart (For Pump) [NovoLOG 0.01 unit SQ-PUMP CONTINUOUS 02/21/23 07/23/24 History (For Pump)] FLUoxetine HCL [PROzac] 10 mg PO DAILY 07/14/23 07/23/24 History Atorvastatin [Lipitor] 20 mg PO HS 11/14/23 07/23/24 History Folic Acid/Vit B Complex and C 0.8 mg PO DAILY 11/14/23 07/23/24 History [Lilian-Marsha Tablet] amLODIPine [Norvasc] 10 mg PO DAILY 11/14/23 07/23/24 History hydrALAZINE HCL [Apresoline] 100 mg PO TID 11/14/23 07/23/24 History Aspirin 81 mg PO DAILY 30 Days #30 tab 11/28/23 07/23/24 Rx Torsemide [Demadex] 100 mg PO DAILY 02/09/24 07/23/24 History Doxazosin [Cardura] 4 mg PO DAILY 05/06/24 07/23/24 History Isosorbide Mononitrate ER [Imdur] 60 mg PO DAILY 05/06/24 07/23/24 History Midodrine [ProAmatine] 5 mg PO DAILY PRN 05/06/24 07/23/24 History cloNIDine 0.1 MG/24HR PATCH 1 patch TRANSDERM WE 05/06/24 07/23/24 History [Catapres-TTS] ALPRAZolam [Xanax] 0.5 mg PO HS PRN 7 Days #7 tab 06/01/24 07/23/24 Rx Calcium Acetate [PhosLo] 667 mg PO TID-W/MEALS 30 Days #90 06/01/24 07/23/24 Rx tab Darbepoetin John [Aranesp] 40 mcg SQ Q7D each 06/01/24 07/23/24 Rx HYDROcodone/APAP 5-325MG [[place] 1 each PO Q4HR PRN #18 tab 06/01/24 07/23/24 Rx 5-325] Melatonin 3 mg PO HS 30 Days #30 tab 06/01/24 07/23/24 Rx Pantoprazole [Protonix] 40 mg PO AC-BRKFST 30 Days #30 tab 06/01/24 07/23/24 Rx Sacubitril/Valsartan [Entresto 49 1 each PO BID 30 Days #60 tab 06/01/24 07/23/24 Rx mg-51 mg Tablet] carvediloL [Coreg] 50 mg PO BID 30 Days #120 tab 06/01/24 07/23/24 Rx Allergies Allergy/AdvReac Type Severity Reaction Status Date / Time Iodinated Contrast Media Allergy Anaphylaxis Verified 07/22/24 17:38 Physical Exam Vitals: Vital Signs Temp Pulse Resp BP Pulse Ox 07/27/24 07:20 97.6 F 65 16 171/73 96 07/27/24 02:00 97.9 F 67 16 152/65 93 L 07/26/24 22:19 98.3 F 70 16 153/74 91 L 07/26/24 20:00 16 07/26/24 19:36 97.7 F 66 16 157/76 98 01/06/25 16:00 98.5 F 63 16 119/63 97 07/26/24 14:00 63 16 07/26/24 13:25 98 F 64 18 151/73 07/26/24 11:18 63 155/77 Intake and Output 07/26/24 07/27/24 07/27/24 22:59 06:59 14:59 Intake Total 462 660 Balance 462 660 Intake: Oral 462 660 Other: Voiding Method Urinal Weight 90.6 kg Results CBC & Chem 7: 07/27/24 06:48 07/27/24 06:48 Labs: Abnormal Lab Results - Last 24 Hours (Table) 07/26/24 07/26/24 07/27/24 Range/Units 11:28 16:26 06:48 WBC 3.2 L (3.8-10.6) k/uL RBC 2.83 L (4.30-5.90) m/uL Hgb 8.5 L (13.0-17.5) gm/dL Hct 28.8 L (39.0-53.0) % MCV 101.8 H (80.0-100.0) fL MCHC 29.5 L (31.0-37.0) g/dL RDW 21.1 H (11.5-15.5) % Plt Count 93 L (150-450) k/uL Sodium (137-145) mmol/L Chloride (98-107) mmol/L Carbon Dioxide (22-30) mmol/L BUN (9-20) mg/dL Creatinine (0.66-1.25) mg/dL Glucose (74-99) mg/dL POC Glucose (mg/dL) 187 H 216 H (70-110) mg/dL Calcium (8.4-10.2) mg/dL ALT (4-49) U/L Alkaline Phosphatase (38-126) U/L Albumin (3.5-5.0) g/dL 07/27/24 07/27/24 Range/Units 06:48 07:05 WBC (3.8-10.6) k/uL RBC (4.30-5.90) m/uL Hgb (13.0-17.5) gm/dL Hct (39.0-53.0) % MCV (80.0-100.0) fL MCHC (31.0-37.0) g/dL RDW (11.5-15.5) % Plt Count (150-450) k/uL Sodium 129 L (137-145) mmol/L Chloride 92 L (98-107) mmol/L Carbon Dioxide 21 L (22-30) mmol/L BUN 38 H (9-20) mg/dL Creatinine 5.02 H (0.66-1.25) mg/dL Glucose 426 H (74-99) mg/dL POC Glucose (mg/dL) 443 H (70-110) mg/dL Calcium 7.9 L (8.4-10.2) mg/dL ALT 79 H (4-49) U/L Alkaline Phosphatase 301 H (38-126) U/L Albumin 2.9 L (3.5-5.0) g/dL Microbiology - Last 24 Hours (Table) 07/24/24 07:17 Blood Culture - Preliminary Blood Assessment and Plan (1) Non-pressure chronic ulcer of other part of right foot with fat layer exposed Current Visit: No Status: Acute Code(s): L97.512 - NON-PRS CHRONIC ULCER OTH PRT RIGHT FOOT W FAT LAYER EXPOSED SNOMED Code(s): 40004806631548043 (2) ESRD (end stage renal disease) Current Visit: No Status: Acute Code(s): N18.6 - END STAGE RENAL DISEASE SNOMED Code(s): 22624845 (3) Type 2 diabetes mellitus with foot ulcer Current Visit: No Status: Acute Code(s): E11.621 - TYPE 2 DIABETES MELLITUS WITH FOOT ULCER; L97.509 - NON-PRESSURE CHRONIC ULCER OTH PRT UNSP FOOT W UNSP SEVERITY SNOMED Code(s): 3263820154683
[2024-07-27 12:07] LABS: Glucose,Whole Blood 457 mg/dL (70-110)
[2024-07-27 17:00] LABS: Glucose,Whole Blood 353 mg/dL (70-110)
--- NOTE | 2024-07-27 18:13 | P.PN ---
Subjective Progress Note Date: 07/27/24 Hospital course: Patient is a very pleasant 58-year-old male with a past medical history of ESRD on hemodialysis, chronic systolic heart failure with EF of 40%, moderate pulmonary hypertension, hypertension, hyperlipidemia, and insulin-dependent diabetes mellitus on insulin pump. Presented to the emergency department with a chief complaint of generalized weakness and recurrent falls at home. Patient reports in addition he is also missed 2 sessions of hemodialysis secondary to the holiday and overall not feeling well due to weakness and fatigue the past f ew days. Patient reports multiple falls at home and on ground outside. He states injury to his left foot as well. Patient recently underwent hospitalization from 05/25/2024 through 06/01/2024 secondary to sepsis resulting from group A strep bacteremia and infected diabetic ulcer of right heel course of outpatient IV antibiotics. On arrival to our facility, patient underwent evaluation in the emergency department. Vital signs upon arrival show blood pressure 180/79, heart rate 67, respiratory rate 18, temp 97.9 F, and SpO2 of 96% on room air. Chest x-ray completed negative for acute cardiopulmonary process revealing cardiomegaly. X-ray of pelvis negative for acute process. CT chest abdomen and pelvis negative for acute process showing severe arthrosclerosis of the arterial vasculature and cardiomegaly with trace ascites and anasarca. CT head negative for acute intracranial process. CT cervical spine showing mild multilevel degenerative disc disease with no evidence of cervical spine fracture. X-ray left foot showing cortical irregularity involving the proximal phalanx of the left fifth digit concerning for possible fracture and severe atherosclerosis of the arterial vasculature. Labs were completed and reviewed. CBC showing bicytopenia with hemoglobin of 9.0 and platelet count of 139. Coagulation profile showing elevated PT of 14.9 and INR 1.4. BMP showing hyponatremia with sodium of 128, hypochloremia with chloride of 91, bicarb of 18, and elevated anion gap of 19. Renal function showing BUN of 50, creatinine of 5.62, and GFR of 10. Blood glucose initially 603. Lactic acid was 1.3. Liver profile showing transaminitis with AST of 120, ALT of 139, and alkaline phosphatase of 393. Troponin was 0.097. Serum alcohol level was negative and acetone also negative. Physical exam: Patient seen and fully evaluated at bedside. He denies having any complaints at this time. He does report feeling a bit stronger, but still not at baseline. Awaiting acceptance to rehab facility and insurance authorization. Vital signs reviewed and stable. General: Nontoxic, no distress and appears stated age. Derm: Skin warm and dry, normal coloration for ethnicity. Diabetic ulcer right heel, no drainage noted. Head: Atraumatic, normocephalic and symmetric. Eyes: EOM's intact, no lid lag, and anicteric sclera Mouth: no lip lesions, mucus membranes moist Cardiovascular: regular rate and rhythm with normal S1S2, systolic murmur, positive posterior tibial pulses bilaterally, and cap refill < [address] AV fistula left upper extremity with bruit and thrill present. Permacath in place left anterior chest. Lungs: Respirations even, regular, and unlabored on room air. Lungs CTA bilaterally, no rhonchi, no rales, no wheezing, and no accessory muscle usage. Abdominal: soft, nontender to palpation, no guarding, no appreciable organomegaly Ext: ROM intact. No gross muscle atrophy, 1-2+ pitting bilateral lower extremity edema, no contractures Neuro: Speech clear, face symmetrical and CN II-XII grossly intact with no noted focal neuro deficits Psych: Alert and oriented to person, place, time, and situation. Appropriate and pleasant affect. Assessment and Plan of Care: Generalized weakness and recurrent falls at home, multifactorial secondary to sickle deconditioning from recent hospitalization for sepsis along with missed dialysis sessions and multiple comorbidities. Fracture of proximal phalanx of left fifth digit -Fall precautions in place. -Orthopedic surgery evaluated and discussed plan of care in detail with sharon CABRERA stating patient will require rigid soled postop shoe to left foot with a dressing be placed between the toes to prevent irritation and for patient to follow-up in their office in 3 to 4 weeks for repeat imaging and further evaluation. -Follow-up on repeat blood culture secondary to recent hospitalization with sepsis and bacteremia. -Cepheid 4 Plex panel negative. Urine drug screen positive for opiates and marijuana. -PT/OT evaluated recommending home with home care with supervision upon standing at all times versus SNF placement for rehab. -Orthostatic vitals negative for orthostatic hypotension. ESRD on hemodialysis, missed dialysis sessions outpatient High anion gap metabolic alkalosis Anemia of chronic disease, secondary to ESRD Hypochloremic Hyponatremia secondary to hypervolemia and fluid volume overload Elevated troponin, likely secondary to ESRD and missed dialysis Thrombocytopenia -Nephrology following and managing hemodialysis. Discussed case with Dr. Shaffer and patient to undergo dialysis again tomorrow and be maintained on current dialysis schedule Friday/Friday/Fridays with continuation of Aranesp.. -Continue torsemide 100 mg daily. -Elevated troponin likely secondary to ESRD Insulin Dependent Diabetes mellitus with hyperglycemia -Continue with glycemic protocol and home insulin pump. Transaminitis -Stable and appears chronic in nature. Slightly improving today with ALT of 79 and alkaline phosphatase of 301. CT abdomen and pelvis negative for acute process did revealed mild anasarca and trace ascites. -Caution with hepatotoxic medications. Continued close monitoring with repeat a.m. labs. Chronic systolic heart failure with a EF of 40%. -Patient to continue cardiac medication regimen with aspirin 81 mg daily, amlodipine 10 mg daily, atorvastatin 20 mg daily, carvedilol 25 mg twice daily, hydralazine 100 mg 3 times daily, valsartan 160 mg daily, isosorbide mononitrate 60 mg daily, clonidine patch weekly with dose of 0.1 mg every 24 hours, and torsemide 100 mg daily. -Patient also to be given midodrine 5 mg daily as needed for hypotension. Hypertension. -Continue medication regimen with amlodipine 10 mg daily,carvedilol 25 mg twice daily, hydralazine 100 mg 3 times daily, clonidine patch weekly with dose of 0.1 mg every 24 hours, and torsemide 100 mg daily. Hyperlipidemia. -Continue medication regimen with atorvastatin 20 mg daily. Data and imaging reviewed: Morning labs reviewed. CBC showing pancytopenia with WBC count of 3.2, hemoglobin of 8.5, platelet count of 93. BMP showing hyponatremia with sodium of 129, chloride 92, bicarb of 21, and anion gap of 16. Renal function consistent with ESRD with BUN of 38, creatinine of 5.02, GFR of 12. Blood glucose remains elevated this morning at 426. Verified patient's basal rate on home insulin pump and patient has not been using bolus dosing. Patient to turn on bolus dosing as needed for hyperglycemia. Vital signs reviewed. Blood pressure blood pressure elevated this morning at 171/73, heart rate 65, respiratory rate 16, temp 97.6 F, and SpO2 of 96% on room air. CODE STATUS: Full code DVT prophylaxis: Heparin Anticipated discharge date: Pending acceptance to SNF and insurance authorization, referrals have been sent with tentative plan for discharge to [facility] Anticipated discharge place: SNF Patient was seen independently by Nurse Pracitioner. This document was prepared using [employer] dictation software. Please allow for errors in stock dealer, while rare they do occur. Anton Salgado NP rendered care for this patient independently, reviewed the findings and plan as documented in the note above and agree with plan. I did not physically speak with or examine the patient on this date. . Objective - Vital Signs Vital signs: Vital Signs Temp 97.6 F 07/27/24 07:20 Pulse 65 07/27/24 07:20 Resp 16 07/27/24 07:20 BP 171/73 07/27/24 07:20 Pulse Ox 96 07/27/24 07:20 FiO2 Intake & Output 07/26/24 07/27/24 07/27/24 18:59 06:59 18:59 Intake Total 1344 900 Output Total 7500 Balance -6156 900 Weight 54.2 kg 90.6 kg Intake: Oral 844 900 Hemodialysis 500 Output: Hemodialysis 4000 Hemodialysis Net Amount 3500 Other: Voiding Method Urinal Urinal - Labs CBC & Chem 7: 07/27/24 06:48 07/27/24 06:48 Labs: Abnormal Lab Results - Last 24 Hours (Table) 07/26/24 07/26/24 07/27/24 Range/Units 11:28 16:26 06:48 WBC 3.2 L (3.8-10.6) k/uL RBC 2.83 L (4.30-5.90) m/uL Hgb 8.5 L (13.0-17.5) gm/dL Hct 28.8 L (39.0-53.0) % MCV 101.8 H (80.0-100.0) fL MCHC 29.5 L (31.0-37.0) g/dL RDW 21.1 H (11.5-15.5) % Plt Count 93 L (150-450) k/uL Sodium (137-145) mmol/L Chloride (98-107) mmol/L Carbon Dioxide (22-30) mmol/L BUN (9-20) mg/dL Creatinine (0.66-1.25) mg/dL Glucose (74-99) mg/dL POC Glucose (mg/dL) 187 H 216 H (70-110) mg/dL Calcium (8.4-10.2) mg/dL ALT (4-49) U/L Alkaline Phosphatase (38-126) U/L Albumin (3.5-5.0) g/dL 07/27/24 07/27/24 Range/Units 06:48 07:05 WBC (3.8-10.6) k/uL RBC (4.30-5.90) m/uL Hgb (13.0-17.5) gm/dL Hct (39.0-53.0) % MCV (80.0-100.0) fL MCHC (31.0-37.0) g/dL RDW (11.5-15.5) % Plt Count (150-450) k/uL Sodium 129 L (137-145) mmol/L Chloride 92 L (98-107) mmol/L Carbon Dioxide 21 L (22-30) mmol/L BUN 38 H (9-20) mg/dL Creatinine 5.02 H (0.66-1.25) mg/dL Glucose 426 H (74-99) mg/dL POC Glucose (mg/dL) 443 H (70-110) mg/dL Calcium 7.9 L (8.4-10.2) mg/dL ALT 79 H (4-49) U/L Alkaline Phosphatase 301 H (38-126) U/L Albumin 2.9 L (3.5-5.0) g/dL Microbiology - Last 24 Hours (Table) 07/24/24 07:17 Blood Culture - Preliminary Blood
[2024-07-27 19:58] LABS: Glucose,Whole Blood 268 mg/dL (70-110)
--- NOTE | 2024-07-27 20:36 | P.PN ---
Subjective Patient is seen for follow-up for end-stage renal disease. Scheduled for hemodialysis in a.m. Overall feeling better. No significant complaints today. Objective - Vital Signs Vital signs: Vital Signs Temp 97.9 F 07/27/24 19:24 Pulse 61 07/27/24 19:24 Resp 20 07/27/24 19:24 BP 135/70 07/27/24 19:24 Pulse Ox 98 07/27/24 19:24 FiO2 Intake & Output 07/27/24 07/27/24 07/28/24 06:59 18:59 06:59 Intake Total 900 Balance 900 Weight 90.6 kg Intake: Oral 900 Other: Voiding Method Urinal Urinal # Voids 4 - Exam Patient is awake, comfortable, no acute distress. Alert oriented x 3 Examination of the heart S1 and S2 Examination of the lungs bilateral breath sounds are heard Abdomen soft nontender Examination of lower extremities shows chronic skin changes with chronic edema and multiple superficial ulcers - Labs CBC & Chem 7: 07/27/24 06:48 07/27/24 06:48 Labs: Abnormal Lab Results - Last 24 Hours (Table) 07/27/24 07/27/24 07/27/24 Range/Units 06:48 06:48 07:05 WBC 3.2 L (3.8-10.6) k/uL RBC 2.83 L (4.30-5.90) m/uL Hgb 8.5 L (13.0-17.5) gm/dL Hct 28.8 L (39.0-53.0) % MCV 101.8 H (80.0-100.0) fL MCHC 29.5 L (31.0-37.0) g/dL RDW 21.1 H (11.5-15.5) % Plt Count 93 L (150-450) k/uL Sodium 129 L (137-145) mmol/L Chloride 92 L (98-107) mmol/L Carbon Dioxide 21 L (22-30) mmol/L BUN 38 H (9-20) mg/dL Creatinine 5.02 H (0.66-1.25) mg/dL Glucose 426 H (74-99) mg/dL POC Glucose (mg/dL) 443 H (70-110) mg/dL Calcium 7.9 L (8.4-10.2) mg/dL ALT 79 H (4-49) U/L Alkaline Phosphatase 301 H (38-126) U/L Albumin 2.9 L (3.5-5.0) g/dL 07/27/24 07/27/24 07/27/24 Range/Units 12:05 16:59 19:56 WBC (3.8-10.6) k/uL RBC (4.30-5.90) m/uL Hgb (13.0-17.5) gm/dL Hct (39.0-53.0) % MCV (80.0-100.0) fL MCHC (31.0-37.0) g/dL RDW (11.5-15.5) % Plt Count (150-450) k/uL Sodium (137-145) mmol/L Chloride (98-107) mmol/L Carbon Dioxide (22-30) mmol/L BUN (9-20) mg/dL Creatinine (0.66-1.25) mg/dL Glucose (74-99) mg/dL POC Glucose (mg/dL) 457 H 353 H 268 H (70-110) mg/dL Calcium (8.4-10.2) mg/dL ALT (4-49) U/L Alkaline Phosphatase (38-126) U/L Albumin (3.5-5.0) g/dL Microbiology - Last 24 Hours (Table) 07/24/24 07:17 Blood Culture - Preliminary Blood Assessment and Plan Assessment: 1. End-stage renal disease on hemodialysis on Friday schedule via IJ permacath 2. Anemia of chronic disease 3. Uncontrolled hypertension, partly volume sensitive and improved with dialysis and ultrafiltration 4. CKD mineral bone disorder Plan: Hemodialysis in a.m. Okay for discharge from nephrology standpoint post hemodialysis. Dry weight will be adjusted as outpatient.
[2024-07-28 07:14] LABS: Glucose,Whole Blood 87 mg/dL (70-110)
[2024-07-28 12:15] LABS: Glucose,Whole Blood 220 mg/dL (70-110)
[2024-07-28] MEDS: cloNIDine 0.1 MG/24HR PATCH TRANSDERM SCH (12:55)
[2024-07-28] MEDS: DARBEPOETIN ALFA 40 MCG/0.4 ML SYRINGE SQ SCH (13:11)
--- NOTE | 2024-07-28 13:21 | P.PN ---
Subjective Patient is seen for follow-up for end-stage renal disease. Seen on hemodialysis today Plans for discharge to rehab Overall feeling better. Objective - Vital Signs Vital signs: Vital Signs Temp 97.5 F L 07/28/24 07:28 Pulse 57 L 07/28/24 07:28 Resp 18 07/28/24 07:28 BP 146/71 07/28/24 07:28 Pulse Ox 98 07/28/24 07:28 FiO2 Intake & Output 07/27/24 07/28/24 07/28/24 18:59 06:59 18:59 Output Total 3000 Balance -3000 Output: Other 3000 Other: Voiding Method Urinal Urinal Urinal # Voids 4 1 - Exam Patient is awake, comfortable, no acute distress. Alert oriented x 3 Examination of the heart S1 and S2 Examination of the lungs bilateral breath sounds are heard Abdomen soft nontender Examination of lower extremities shows chronic skin changes with chronic edema and multiple superficial ulcers - Labs CBC & Chem 7: 07/27/24 06:48 07/27/24 06:48 Labs: Abnormal Lab Results - Last 24 Hours (Table) 07/27/24 07/27/24 07/28/24 Range/Units 16:59 19:56 12:13 POC Glucose (mg/dL) 353 H 268 H 220 H (70-110) mg/dL Microbiology - Last 24 Hours (Table) 07/24/24 07:17 Blood Culture - Preliminary Blood Assessment and Plan Assessment: 1. End-stage renal disease on hemodialysis on Friday schedule via IJ permacat 2. Anemia of chronic disease 3. Uncontrolled hypertension, partly volume sensitive and improved with dialysis and ultrafiltration 4. CKD mineral bone disorder Plan: Hemodialysis on Friday schedule Okay for discharge from nephrology standpoint post hemodialysis. Dry weight will be adjusted as outpatient.
--- NOTE | 2024-07-28 14:35 | P.PN ---
Subjective Progress Note Date: 07/28/24 Hospital course: Patient is a very pleasant 58-year-old male with a past medical history of ESRD on hemodialysis, chronic systolic heart failure with EF of 40%, moderate pulmonary hypertension, hypertension, hyperlipidemia, and insulin-dependent diabetes mellitus on insulin pump. Presented to the emergency department with a chief complaint of generalized weakness and recurrent falls at home. Patient reports in addition he is also missed 2 sessions of hemodialysis secondary to the holiday and overall not feeling well due to weakness and fatigue the past f ew days. Patient reports multiple falls at home and on ground outside. He states injury to his left foot as well. Patient recently underwent hospitalization from 05/25/2024 through 06/01/2024 secondary to sepsis resulting from group A strep bacteremia and infected diabetic ulcer of right heel course of outpatient IV antibiotics. On arrival to our facility, patient underwent evaluation in the emergency department. Vital signs upon arrival show blood pressure 180/79, heart rate 67, respiratory rate 18, temp 97.9 F, and SpO2 of 96% on room air. Chest x-ray completed negative for acute cardiopulmonary process revealing cardiomegaly. X-ray of pelvis negative for acute process. CT chest abdomen and pelvis negative for acute process showing severe arthrosclerosis of the arterial vasculature and cardiomegaly with trace ascites and anasarca. CT head negative for acute intracranial process. CT cervical spine showing mild multilevel degenerative disc disease with no evidence of cervical spine fracture. X-ray left foot showing cortical irregularity involving the proximal phalanx of the left fifth digit concerning for possible fracture and severe atherosclerosis of the arterial vasculature. Labs were completed and reviewed. CBC showing bicytopenia with hemoglobin of 9.0 and platelet count of 139. Coagulation profile showing elevated PT of 14.9 and INR 1.4. BMP showing hyponatremia with sodium of 128, hypochloremia with chloride of 91, bicarb of 18, and elevated anion gap of 19. Renal function showing BUN of 50, creatinine of 5.62, and GFR of 10. Blood glucose initially 603. Lactic acid was 1.3. Liver profile showing transaminitis with AST of 120, ALT of 139, and alkaline phosphatase of 393. Troponin was 0.097. Serum alcohol level was negative and acetone also negative. Physical exam: Patient seen and fully evaluated at bedside. He was undergoing dialysis at time of assessment and denies having any complaints or needs at this time. Vital signs reviewed and stable. General: Nontoxic, no distress and appears stated age. Derm: Skin warm and dry, normal coloration for ethnicity. Diabetic ulcer right heel, no drainage noted. Head: Atraumatic, normocephalic and symmetric. Eyes: EOM's intact, no lid lag, and anicteric sclera Mouth: no lip lesions, mucus membranes moist Cardiovascular: regular rate and rhythm with normal S1S2, systolic murmur, positive posterior tibial pulses bilaterally, and cap refill < 2 seconds[address] AV fistula left upper extremity with bruit and thrill present. Permacath in place left anterior chest. Lungs: Respirations even, regular, and unlabored on room air. Lungs CTA bilaterally, no rhonchi, no rales, no wheezing, and no accessory muscle usage. Abdominal: soft, nontender to palpation, no guarding, no appreciable organomegaly Ext: ROM intact. No gross muscle atrophy, 1-2+ pitting bilateral lower extremity edema, no contractures Neuro: Speech clear, face symmetrical and CN II-XII grossly intact with no noted focal neuro deficits Psych: Alert and oriented to person, place, time, and situation. Appropriate and pleasant affect. Assessment and Plan of Care: Generalized weakness and recurrent falls at home, multifactorial secondary to physical deconditioning from recent hospitalization for sepsis along with missed dialysis sessions and multiple comorbidities. Fracture of proximal phalanx of left fifth digit -Fall precautions in place. -Orthopedic surgery evaluated and discussed plan of care in detail with orthopedic PA stating patient will require rigid soled postop shoe to left foot with a dressing be placed between the toes to prevent irritation and for patient to follow-up in their office in 3 to 4 weeks for repeat imaging and further evaluation. -Blood culture negative. Cepheid 4 Plex panel negative. Urine drug screen positive for opiates and marijuana. -PT/OT evaluated recommending home with home care with supervision upon standing at all times versus SNF placement for rehab. Secondary to stairs at home and need for supervision upon standing, recommending SNF placement for rehab. -Orthostatic vitals negative for orthostatic hypotension. ESRD on hemodialysis, missed dialysis sessions outpatient High anion gap metabolic alkalosis Anemia of chronic disease, secondary to ESRD Hypochloremic Hyponatremia secondary to hypervolemia and fluid volume overload Elevated troponin, likely secondary to ESRD and missed dialysis Thrombocytopenia -Nephrology following and managing hemodialysis. Undergoing dialysis and be maintained on current dialysis schedule Friday/Friday/Fridays with continuation of Aranesp.. -Continue torsemide 100 mg daily. -Elevated troponin likely secondary to ESRD Insulin Dependent Diabetes mellitus with hyperglycemia -Continue with glycemic protocol and home insulin pump. Transaminitis -Stable and appears chronic in nature. Slightly improving today with ALT of 79 and alkaline phosphatase of 301. CT abdomen and pelvis negative for acute process did revealed mild anasarca and trace ascites. -Caution with hepatotoxic medications. Continued close monitoring with repeat a.m. labs. Chronic systolic heart failure with a EF of 40%. -Patient to continue cardiac medication regimen with aspirin 81 mg daily, amlodipine 10 mg daily, atorvastatin 20 mg daily, carvedilol 25 mg twice daily, hydralazine 100 mg 3 times daily, valsartan 160 mg daily, isosorbide mononitrate 60 mg daily, clonidine patch weekly with dose of 0.1 mg every 24 hours, and torsemide 100 mg daily. -Patient also to be given midodrine 5 mg daily as needed for hypotension. Hypertension. -Continue medication regimen with amlodipine 10 mg daily,carvedilol 25 mg twice daily, hydralazine 100 mg 3 times daily, clonidine patch weekly with dose of 0.1 mg every 24 hours, and torsemide 100 mg daily. Hyperlipidemia. -Continue medication regimen with atorvastatin 20 mg daily. Data and imaging reviewed: Vital signs reviewed. Blood pressure blood pressure elevated this morning at 146/71, heart rate 57, respiratory rate 18, temp 97.5 F, and SpO2 of 98% on room air. CODE STATUS: Full code DVT prophylaxis: Heparin Anticipated discharge date: Pending acceptance to [facility] and insurance authorization, referrals have been sent with tentative plan for discharge to [facility] Anticipated discharge place: SNF Patient was seen independently by Nurse Pracitioner. This document was prepared using [email or web address] dictation software. Please allow for errors in battery assembler dry cell, while rare they do occur. Anton Salgado NP rendered care for this patient independently, reviewed the findings and plan as documented in the note above and agree with plan. I did not physically speak with or examine the patient on this date. . Objective - Vital Signs Vital signs: Vital Signs Temp 97.5 F L 07/28/24 07:28 Pulse 57 L 07/28/24 07:28 Resp 18 07/28/24 07:28 BP 146/71 07/28/24 07:28 Pulse Ox 98 07/28/24 07:28 FiO2 Intake & Output 07/27/24 07/28/24 07/28/24 18:59 06:59 18:59 Other: Voiding Method Urinal Urinal # Voids 4 1 - Labs CBC & Chem 7: 07/27/24 06:48 07/27/24 06:48 Labs: Abnormal Lab Results - Last 24 Hours (Table) 07/27/24 07/27/24 07/27/24 Range/Units 06:48 12:05 16:59 WBC 3.2 L (3.8-10.6) k/uL Plt Count 93 L (150-450) k/uL POC Glucose (mg/dL) 457 H 353 H (70-110) mg/dL 07/27/24 Range/Units 19:56 WBC (3.8-10.6) k/uL Plt Count (150-450) k/uL POC Glucose (mg/dL) 268 H (70-110) mg/dL Microbiology - Last 24 Hours (Table) 07/24/24 07:17 Blood Culture - Preliminary Blood
[2024-07-28 17:26] LABS: Glucose,Whole Blood 199 mg/dL (70-110)
[2024-07-28 20:16] LABS: Glucose,Whole Blood 220 mg/dL (70-110)
[2024-07-29 02:00] VITALS: RESP 17
[2024-07-29 07:23] LABS: Glucose,Whole Blood 59 mg/dL (70-110)
[2024-07-29 07:54] LABS: Glucose,Whole Blood 63 mg/dL (70-110)
[2024-07-29 08:17] LABS: Glucose,Whole Blood 99 mg/dL (70-110)
--- NOTE | 2024-07-29 09:30 | P.DS ---
Providers Date of admission: 07/22/24 23:02 Attending physician: Irma Davison MD Consults: 07/22/24 23:02 Consult Physician Routine Consulting Provider: Sheba Shaffer Consult Reason/Comments: ESRD Do you want consulting provider notified?: Yes 07/23/24 18:03 Consult Physician Routine Consulting Provider: [facility] Consult Reason/Comments: 5th toe fx, may need walking boot Do you want consulting provider notified?: Yes Primary care physician: Devon Mattson Hospital Course: Discharge Diagnosis: Generalized weakness and recurrent falls at home, multifactorial secondary to physical deconditioning from recent hospitalization for sepsis along with missed dialysis sessions and multiple comorbidities. Fracture of proximal phalanx of left fifth digit ESRD on hemodialysis, missed dialysis sessions outpatient High anion gap metabolic alkalosis Anemia of chronic disease, secondary to ESRD Hypochloremic Hyponatremia secondary to hypervolemia and fluid volume overload Elevated troponin, likely secondary to ESRD and missed dialysis Thrombocytopenia Dependent diabetes mellitus with hyperglycemia Transaminitis Chronic systolic heart failure with a EF of 40% Hypertension Hyperlipidemia Hospital Course: Patient is a very pleasant 58-year-old male with a past medical history of ESRD on hemodialysis, chronic systolic heart failure with EF of 40%, moderate pulmonary hypertension, hypertension, hyperlipidemia, and insulin-dependent diabetes mellitus on insulin pump. Presented to the emergency department with a chief complaint of generalized weakness and recurrent falls at home. Patient reports in addition he is also missed 2 sessions of hemodialysis secondary to the holiday and overall not feeling well due to weakness and fatigue the past few days. Patient reports multiple falls at home and on ground outside. He states injury to his left foot as well. Patient recently underwent hospitalization from 05/25/2024 through 06/01/2024 secondary to sepsis resulting from group A strep bacteremia and infected diabetic ulcer of right heel course of outpatient IV antibiotics. On arrival to our facility, patient underwent evaluation in the emergency department. Vital signs upon arrival show blood pressure 180/79, heart rate 67, respiratory rate 18, temp 97.9 F, and SpO2 of 96% on room air. Chest x-ray completed negative for acute cardiopulmonary process revealing cardiomegaly. X-ray of pelvis negative for acute process. CT chest abdomen and pelvis negative for acute process showing severe arthrosclerosis of the arterial vasculature and cardiomegaly with trace ascites and anasarca. CT head negative for acute intracranial process. CT cervical spine showing mild multilevel degenerative disc disease with no evidence of cervical spine fracture. X-ray left foot showing cortical irregularity involving the proximal phalanx of the left fifth digit concerning for possible fracture and severe atherosclerosis of the arterial vasculature. Labs were completed and reviewed. CBC showing bicytopenia with hemoglobin of 9.0 and platelet count of 139. Coagulation profile showing elevated PT of 14.9 and INR 1.4. BMP showing hyponatremia with sodium of 128, hypochloremia with chloride of 91, bicarb of 18, and elevated anion gap of 19. Renal function showing BUN of 50, creatinine of 5.62, and GFR of 10. Blood glucose initially 603. Lactic acid was 1.3. Liver profile showing transaminitis with AST of 120, ALT of 139, and alkaline phosphatase of 393. Troponin was 0.097. Serum alcohol level was negative and acetone also negative. Orthopedic surgery evaluated and discussed plan of care in detail with orthopedic PA stating patient will require rigid soled postop shoe to left foot with a dressing be placed between the toes to prevent irritation and for patient to follow-up in their office in 3 to 4 weeks for repeat imaging and further evaluation.Blood culture negative. Cepheid 4 Plex panel negative. Urine drug screen positive for opiates and marijuana.PT/OT evaluated recommending home with home care with supervision upon standing at all times versus SNF placement for rehab. Secondary to stairs at home and need for supervision upon standing, recommending SNF placement for rehab.Orthostatic vitals negative for orthostatic hypotension. Patient seen and examined at bedside. Vital signs reviewed and stable. ital signs reviewed and stable. General: Nontoxic, no distress and appears stated age. Derm: Skin warm and dry, normal coloration for ethnicity. Diabetic ulcer right heel, no drainage noted. Head: Atraumatic, normocephalic and symmetric. Eyes: EOM's intact, no lid lag, and anicteric sclera Mouth: no lip lesions, mucus membranes moist Cardiovascular: regular rate and rhythm with normal S1S2, systolic murmur, positive posterior tibial pulses bilaterally, and cap refill < [address] AV fistula left upper extremity with bruit and thrill present. Permacath in place left anterior chest. Lungs: Respirations even, regular, and unlabored on room air. Lungs CTA bilaterally, no rhonchi, no rales, no wheezing, and no accessory muscle usage. Abdominal: soft, nontender to palpation, no guarding, no appreciable organomegaly Ext: ROM intact. No gross muscle atrophy, 1-2+ pitting bilateral lower extremity edema, no contractures Neuro: Speech clear, face symmetrical and CN II-XII grossly intact with no noted focal neuro deficits Psych: Alert and oriented to person, place, time, and situation. Appropriate and pleasant affect. A total of 40inutes of time were spent preparing this complex discharge summary. Patient was discharged on 07/29/24 Patient Condition at Discharge: Fair Plan - Discharge Summary Discharge Rx Participant: No New Discharge Prescriptions: Continue Insulin Aspart (For Pump) [NovoLOG (For Pump)] 0.01 unit SQ-PUMP CONTINUOUS FLUoxetine HCL [PROzac] 10 mg PO DAILY Atorvastatin [Lipitor] 20 mg PO HS Folic Acid/Vit B Complex and C [Lilian-Marsha Tablet] 0.8 mg PO DAILY Aspirin 81 mg PO DAILY 30 Days #30 tab Torsemide [Demadex] 100 mg PO DAILY Doxazosin [Cardura] 4 mg PO DAILY cloNIDine 0.1 MG/24HR PATCH [Catapres-TTS] 1 patch TRANSDERM WE Darbepoetin John [Aranesp] 40 mcg SQ Q7D each Sacubitril/Valsartan [Entresto 49 mg-51 mg Tablet] 1 each PO BID 30 Days #60 tab HYDROcodone/APAP 5-325MG [[place] 5-325] 1 each PO Q4HR PRN #18 tab PRN Reason: Moderate Pain (Scale 4 To 6) Pantoprazole [Protonix] 40 mg PO AC-BRKFST 30 Days #30 tab ALPRAZolam [Xanax] 0.5 mg PO HS PRN 7 Days #7 tab PRN Reason: Insomnia hydrALAZINE HCL [Apresoline] 100 mg PO TID amLODIPine [Norvasc] 10 mg PO DAILY Isosorbide Mononitrate ER [Imdur] 60 mg PO DAILY Midodrine [ProAmatine] 5 mg PO DAILY PRN PRN Reason: low blood pressure Melatonin 3 mg PO HS 30 Days #30 tab Calcium Acetate [PhosLo] 667 mg PO TID-W/MEALS 30 Days #90 tab carvediloL [Coreg] 50 mg PO BID 30 Days #120 tab Discharge Medication List Insulin Aspart (For Pump) [NovoLOG (For Pump)] 0.01 unit SQ-PUMP CONTINUOUS 02/21/23 [History] FLUoxetine HCL [PROzac] 10 mg PO DAILY 07/14/23 [History] Atorvastatin [Lipitor] 20 mg PO HS 11/14/23 [History] Folic Acid/Vit B Complex and C [Lilian-Marsha Tablet] 0.8 mg PO DAILY 11/14/23 [History] amLODIPine [Norvasc] 10 mg PO DAILY 11/14/23 [History] hydrALAZINE HCL [Apresoline] 100 mg PO TID 11/14/23 [History] Aspirin 81 mg PO DAILY 30 Days #30 tab 11/28/23 [Rx] Torsemide [Demadex] 100 mg PO DAILY 02/09/24 [History] Doxazosin [Cardura] 4 mg PO DAILY 05/06/24 [History] Isosorbide Mononitrate ER [Imdur] 60 mg PO DAILY 05/06/24 [History] Midodrine [ProAmatine] 5 mg PO DAILY PRN 05/06/24 [History] cloNIDine 0.1 MG/24HR PATCH [Catapres-TTS] 1 patch TRANSDERM WE 05/06/24 [History] ALPRAZolam [Xanax] 0.5 mg PO HS PRN 7 Days #7 tab 06/01/24 [Rx] Calcium Acetate [PhosLo] 667 mg PO TID-W/MEALS 30 Days #90 tab 06/01/24 [Rx] Darbepoetin John [Aranesp] 40 mcg SQ Q7D each 06/01/24 [Rx] HYDROcodone/APAP 5-325MG [[place] 5-325] 1 each PO Q4HR PRN #18 tab 06/01/24 [Rx] Melatonin 3 mg PO HS 30 Days #30 tab 06/01/24 [Rx] Pantoprazole [Protonix] 40 mg PO AC-BRKFST 30 Days #30 tab 06/01/24 [Rx] Sacubitril/Valsartan [Entresto 49 mg-51 mg Tablet] 1 each PO BID 30 Days #60 tab 06/01/24 [Rx] carvediloL [Coreg] 50 mg PO BID 30 Days #120 tab 06/01/24 [Rx] Follow up Appointment(s)/Referral(s): Jaswinder,Endy, MD [STAFF PHYSICIAN] - 3 Weeks Dialysis,Quinten Rosales Strang [NON-STAFF] - 07/30/24 5:15 am (5:15 chair time for Dialysis ) Devon Mattson MD [Primary Care Provider] - 1-2 days Patient Instructions/Handouts: Chronic Kidney Disease (DC), Dialysis Diet (DC), Weakness (DC), Diabetes Type 1: Management (DC) Activity/Diet/Wound Care/Special Instructions: Continue rigid soled postop shoe left foot when ambulating. Wound care nurse to address skin tear between the fourth and fifth toes left foot. Daily dressing changes. [facility]. Discharge Disposition: TRANSFER TO SNF/ECF
[2024-07-29 12:26] LABS: Glucose,Whole Blood 111 mg/dL (70-110)
[2024-07-29 14:12] VITALS: BP 129/61; PULSE 56; TEMP 97.7
--- NOTE | 2024-07-29 21:43 | P.PN ---
Subjective Patient is seen for follow-up for end-stage renal disease. Plans for discharge to rehab Overall feeling better. Objective - Vital Signs Vital signs: Vital Signs Temp 97.7 F 07/29/24 12:59 Pulse 56 L 07/29/24 12:59 Resp 17 07/29/24 12:59 BP 129/61 07/29/24 12:59 Pulse Ox 96 07/29/24 12:59 FiO2 Intake & Output 07/29/24 07/29/24 07/30/24 06:59 18:59 06:59 Intake Total 600 Balance 600 Weight 91.1 kg Intake: Oral 600 Other: Voiding Method Urinal - Exam Patient is awake, comfortable, no acute distress. Alert oriented x 3 Examination of lower extremities shows chronic skin changes with chronic edema and multiple superficial ulcers - Labs CBC & Chem 7: 07/27/24 06:48 07/27/24 06:48 Labs: Abnormal Lab Results - Last 24 Hours (Table) 07/29/24 07/29/24 07/29/24 Range/Units 07:22 07:53 12:25 POC Glucose (mg/dL) 59 L 63 L 111 H (70-110) mg/dL Microbiology - Last 24 Hours (Table) 07/24/24 07:17 Blood Culture - Final Blood Assessment and Plan Assessment: 1. End-stage renal disease on hemodialysis on Friday schedule via permacat 2. Anemia of chronic disease 3. Uncontrolled hypertension, partly volume sensitive and improved with dialysis and ultrafiltration 4. CKD mineral bone disorder Plan: Hemodialysis on Friday schedule Okay for discharge from nephrology standpoint Dry weight will be adjusted as outpatient.
== END 2024-07-29 15:38 ==
LOC: EC 17:03 → 3SCARD 23:02 → 5NMEDONC 07-26 21:10
PROVIDERS: ADMIT Internal Medicine; ATTEND Internal Medicine
DX: R53.1 Weakness (principal); R29.6 Repeated falls; I13.2 Hypertensive heart and chronic kidney disease with heart failure and with stage 5 chronic kidney disease, or end stage renal disease; I50.22 Chronic systolic (congestive) heart failure; N18.6 End stage renal disease; E10.22 Type 1 diabetes mellitus with diabetic chronic kidney disease; D63.1 Anemia in chronic kidney disease; N25.0 Renal osteodystrophy; S92.502A Displaced unspecified fracture of left lesser toe(s), initial encounter for closed fracture; W19.XXXA Unspecified fall, initial encounter; E87.4 Mixed disorder of acid-base balance; E87.1 Hypo-osmolality and hyponatremia; E87.8 Other disorders of electrolyte and fluid balance, not elsewhere classified; R63.8 Other symptoms and signs concerning food and fluid intake; R79.89 Other specified abnormal findings of blood chemistry; D69.6 Thrombocytopenia, unspecified; E10.621 Type 1 diabetes mellitus with foot ulcer; L97.412 Non-pressure chronic ulcer of right heel and midfoot with fat layer exposed; E78.5 Hyperlipidemia, unspecified; I27.20 Pulmonary hypertension, unspecified; E10.65 Type 1 diabetes mellitus with hyperglycemia; R74.01 Elevation of levels of liver transaminase levels; Z11.52 Encounter for screening for COVID-19; Z87.891 Personal history of nicotine dependence; Z96.41 Presence of insulin pump (external) (internal); Z99.2 Dependence on renal dialysis; Z79.4 Long term (current) use of insulin; Z79.82 Long term (current) use of aspirin; Z79.899 Other long term (current) drug therapy
CPT/HCPCS: 96376 ×7; 96372 ×8; 96374 ×2; 99285; 36415; 93005; 97530 ×2; 97166 ×2; 86900; 86901; 80053 ×5; 80048; 82009; 83605; 83735 ×5; 84484 ×2; 85025; 85027 ×5; 85610; 85730; 86850; 87040; 80306; 80320; 87636; 72170; 73630; 71045; 72125; 70450; 71250; 74176; G0378 ×9; J2270 ×7; J1644 ×7; J0881; 90935